=== PATIENT | male | born 1960 | race Caucasian/White ===

== ENCOUNTER 2020-07-17 15:46 | Inpatient (IN) | payer SELFPAY ==
[2020-07-17] MEDS ORDERED: ASPIRIN 325 MG TAB PO ONE (17:20)
--- NOTE | 2020-07-17 18:04 | XRay Report ---
CHEST 1 VIEW INDICATION: Chest Pain COMPARISON: None FINDINGS: SUPPORT DEVICES: None. HEART / MEDIASTINUM: No significant abnormality. LUNGS / PLEURA: Faint increased density throughout both lungs. No evidence of a pleural effusion. No pneumothorax. ADDITIONAL FINDINGS: IMPRESSION: 1. Diffuse pulmonary process, pneumonia is a concern Signer Name: Duglas Carter MD Signed: 07/17/2020 6:00 PM Workstation Name: [id number]
[2020-07-17 18:05] LABS: Basophils % (Auto) 0.2 % (0.0-1.8); Hematocrit 40.6 % (35.5-45.6); Hemoglobin 14.1 gm/dl (11.8-15.2); Lymphocytes # (Auto) 0.7 K/mm3 (1.2-5.4); Lymphocytes % (Auto) 10.5 % (13.4-35.0); Mean Corpuscular HGB Conc 35 % (32-34); Mean Corpuscular Volume 92 fl (84-94); Monocytes # (Auto) 0.3 K/mm3 (0.0-0.8); Platelet Count 148 K/mm3 (140-440); Red Cell Distribution Width 13.3 % (13.2-15.2)
[2020-07-17 18:22] LABS: Calcium 8.5 mg/dL (8.4-10.2); Hemolysis Index 5
[2020-07-17 18:43] LABS: BUN/Creatinine Ratio 1; Blood Urea Nitrogen 1 mg/dL (9-20)
--- NOTE | 2020-07-17 18:45 | Event Note ---
ED Screening Note Date of service: 07/17/20 Time: 18:43 ED Screening Note: 60-year-old -Maltese male presents to the emergency room for shortness of breath and chest discomfort x10 days. Patient denies any past medical history. Does complain of a cough. Denies any fever chills no nausea no vomiting no diarrhea. Last Covid negative test was in April prior to going to [place]. This initial assessment/diagnostic orders/clinical plan/treatment(s) is/are subject to change based on patients health status, clinical progression and re- assessment by fellow clinical providers in the ED. Further treatment and workup at subsequent clinical providers discretion. Patient/guardian urged not to elope from the ED as their condition may be serious if not clinically assessed and managed. Initial orders include:
[2020-07-17] MEDS ORDERED: cefTRIAXone/NS 1 GM/50 ML 1 GM/50 ML BAG IV ONE (21:58)
[2020-07-17] MEDS ORDERED: ALBUTEROL 2.5 MG/3 ML NEBU IH ONE (21:58)
[2020-07-17] MEDS ORDERED: ONDANSETRON 4 MG/2 ML INJ IV PRN (22:21)
[2020-07-17] MEDS ORDERED: MAGNESIUM HYDROXIDE (MOM) ORAL LIQD UDC PO PRN (22:21)
[2020-07-17] MEDS ORDERED: dexAMETHasone 4 MG/ML VIAL IV ONE (22:26)
--- NOTE | 2020-07-17 22:32 | History and Physical Report ---
History of Present Illness Date of examination: 07/17/20 Date of admission: 07/17/2020 Chief complaint: Shortness of breath Chest Discomfort History of present illness: 60-year-old -Citizen Of [place] male with no significant past medical history presenting to the emergency room today complaining of shortness of breath and chest discomfort. Symptoms have been ongoing for the past 2 weeks. He has had some cough which is minimally productive of some whitish sputum. Patient states that he was seen by his primary care physician a few days ago and was started on some antibiotics doxycycline and some oral steroids without any significant improvement. He has had some low-grade fever and chills, no nausea vomiting, no headache or dizziness, he has had some mild chest discomfort with cough, no hematuria or dysuria. Patient denies any sick contacts and no contact with anyone with COVID-19. He however states he went on a trip to [facility] in April 2020. Work-up in the emergency room today, chest x-ray reveals:. Diffuse pulmonary process, pneumonia is a concern . Past History Past Medical History: No medical history Medications and Allergies Allergies Allergy/AdvReac Type Severity Reaction Status Date / Time No Known Allergies Allergy Verified 07/17/20 17:02 Active Meds: Active Medications Acetaminophen (Acetaminophen 325 Mg Tab) 650 mg PO Q4H PRN PRN Reason: Pain MILD(1-3)/Fever >100.5/AWAD Dexamethasone (Dexamethasone 4 Mg/Ml Vial) 8 mg IV ONCE ONE Stop: 07/17/20 22:27 Dexamethasone (Dexamethasone 4 Mg/Ml Vial) 6 mg IV Q24HR SHERON Enoxaparin Sodium (Enoxaparin 40 Mg/0.4 Ml Inj) 40 mg SUB-Q QDAY@2200 SHERON; Protocol Ceftriaxone Sodium (Rocephin/Ns 2 Gm/100 Ml) 2 gm in 100 mls @ 200 mls/hr IV Q24H SHERON; Protocol Azithromycin 500 mg/ Sodium (Chloride) 250 mls @ 250 mls/hr IV Q24H SHERON; Protocol Magnesium Hydroxide (Magnesium Hydroxide (Mom) Oral Liqd Udc) 30 ml PO Q4H PRN PRN Reason: Constipation Morphine Sulfate (Morphine 2 Mg/1 Ml Inj) 2 mg IV Q4H PRN PRN Reason: Pain, Moderate (4-6) Ondansetron HCl (Ondansetron 4 Mg/2 Ml Inj) 4 mg IV Q8H PRN PRN Reason: Nausea And Vomiting Sodium Chloride (Sodium Chloride 0.9% 10 Ml Flush Syringe) 10 ml IV PRN PRN PRN Reason: LINE FLUSH Last Admin: 07/17/20 22:13 Dose: 10 ml Documented by: Sodium Chloride (Sodium Chloride 0.9% 10 Ml Flush Syringe) 10 ml IV BID SHERON Sodium Chloride (Sodium Chloride 0.9% 10 Ml Flush Syringe) 10 ml IV PRN PRN PRN Reason: LINE FLUSH Review of Systems Constitutional: fever, chills, malaise Ears, nose, mouth and throat: no nasal congestion, no sore throat Cardiovascular: no chest pain, no palpitations Respiratory: cough, shortness of breath Gastrointestinal: no abdominal pain, no nausea, no vomiting, no diarrhea Genitourinary Male: no dysuria, no hematuria, no flank pain, no nocturia Musculoskeletal: no neck pain, no low back pain Integumentary: no rash, no pruritis Neurological: no headaches, no confusion Psychiatric: no anxiety, no depression Exam - Constitutional Vitals: Temp Pulse Resp BP Pulse Ox 98.6 F 78 20 146/72 95 07/17/20 17:03 07/17/20 17:03 07/17/20 17:03 07/17/20 17:03 07/17/20 17:03 General appearance: Present: no acute distress, well-nourished - EENT Eyes: Present: PERRL, EOM intact. Absent: scleral icterus ENT: hearing intact, clear oral mucosa, dentition normal - Neck Neck: Present: supple, normal ROM - Respiratory Respiratory effort: normal Respiratory: bilateral: diminished - Cardiovascular Rhythm: regular Heart Sounds: Present: S1 & S2. Absent: gallop, systolic murmur, diastolic murmur, rub - Extremities Extremities: no ischemia, pulses intact, pulses symmetrical, No edema, normal temperature, normal color, Full ROM Peripheral Pulses: within normal limits - Abdominal General gastrointestinal: Present: soft, non-tender, non-distended, normal bowel sounds. Absent: mass - Integumentary Integumentary: Present: clear, warm, dry. Absent: rash - Musculoskeletal Musculoskeletal: strength equal bilaterally - Psychiatric Psychiatric: appropriate mood/affect, intact judgment & insight, memory intact, cooperative - Neurologic Neurologic: CNII-XII intact, no focal deficits, moves all extremities HEART Score - HEART Score Troponin: Troponin T < 0.010 ng/mL (0.00-0.029) 07/17/20 17:30 Results - Labs CBC & Chem 7: 07/18/20 04:31 07/18/20 04:31 Labs: Abnormal lab results 07/17/20 07/17/20 Range/Units 17:30 17:30 MCHC 35 H (32-34) % Lymph % (Auto) 10.5 L (13.4-35.0) % Lymph # (Auto) 0.7 L (1.2-5.4) K/mm3 Seg Neutrophils % 85.3 H (40.0-70.0) % BUN 1 L (9-20) mg/dL Glucose 154 H (75-100) mg/dL Assessment and Plan - Patient Problems (1) Pneumonia Current Visit: Yes Status: Acute Plan to address problem: Patient placed on empiric IV antibiotics. We will await culture results. (2) Hypoxia Current Visit: Yes Status: Acute Plan to address problem: Possibly due to the underlying pneumonia. We will keep patient on oxygen and keep O2 saturation greater or equal to 94%. (3) Suspected 2019 novel coronavirus infection Current Visit: Yes Status: Acute Plan to address problem: Patient placed on isolation precautions. We will await COVID-19 testing. Consult placed to infectious disease for evaluation. (4) DVT prophylaxis Current Visit: Yes Status: Acute Plan to address problem: Patient placed on subcutaneous Lovenox. (5) Full code status Current Visit: Yes Status: Acute Plan to address problem: Patient is a full code.
--- NOTE | 2020-07-17 22:50 | Emergency Department Report ---
ED General Adult HPI - General Chief complaint: Chest Pain Stated complaint: INEZ Time Seen by Provider: 07/17/20 21:13 Source: patient Mode of arrival: Ambulatory Limitations: No Limitations - History of Present Illness Initial comments: 60-year-old -Belgian male with no significant past medical history presents to the emergency department complaining of progressively worsening dyspnea and chest discomfort associated with cough over the past near 2 weeks. States that he initially got symptoms and saw his primary care provider home for him with symptomatic medications which did not improve her symptoms he visited him about 4 days ago and was started on on doxycycline which she reports compliance with still symptoms has continued to worsen since the onset. No mumps no hematemesis no hematochezia and his most recent foreign travel was to [place] back in April.. Quality: aching Consistency: constant Improves with: none Worsens with: movement Associated Symptoms: cough, malaise, shortness of breath. denies: diaphoresis, fever/chills - Related Data Allergies Allergy/AdvReac Type Severity Reaction Status Date / Time No Known Allergies Allergy Verified 07/17/20 17:02 ED Review of Systems ROS: Stated complaint: INEZ Other details as noted in HPI Comment: All other systems reviewed and negative ED Physical Exam - General Limitations: No Limitations General appearance: alert, in no apparent distress - Head Head exam: Present: atraumatic, normocephalic - Eye Eye exam: Present: normal appearance, PERRL, EOMI. Absent: scleral icterus, conjunctival injection Pupils: Present: normal accommodation - ENT ENT exam: Present: normal exam, normal orophraynx, mucous membranes moist - Neck Neck exam: Present: normal inspection, full ROM - Respiratory Respiratory exam: Present: respiratory distress, rhonchi, decreased breath sounds - Cardiovascular Cardiovascular Exam: Present: regular rate, normal rhythm. Absent: systolic murmur, diastolic murmur, rubs, gallop - GI/Abdominal GI/Abdominal exam: Present: soft, normal bowel sounds - Rectal Rectal exam: Present: deferred - Extremities Exam Extremities exam: Present: normal inspection - Back Exam Back exam: Present: normal inspection - Neurological Exam Neurological exam: Present: alert, oriented X3 - Psychiatric Psychiatric exam: Present: normal affect, normal mood - Skin Skin exam: Present: warm, dry, intact, normal color. Absent: rash ED Course Vital Signs 07/17/20 17:03 Temperature 98.6 F Pulse Rate 78 Respiratory 20 Rate Blood Pressure 146/72 O2 Sat by Pulse 95 Oximetry ED Medical Decision Making - Lab Data Result diagrams: 07/17/20 17:30 07/17/20 17:30 Lab Results 07/17/20 07/17/20 Range/Units 17:30 17:30 WBC 6.4 (4.5-11.0) K/mm3 RBC 4.40 (3.65-5.03) M/mm3 Hgb 14.1 (11.8-15.2) gm/dl Hct 40.6 (35.5-45.6) % MCV 92 (84-94) fl MCH 32 (28-32) pg MCHC 35 H (32-34) % RDW 13.3 (13.2-15.2) % Plt Count 148 (140-440) K/mm3 Lymph % (Auto) 10.5 L (13.4-35.0) % [place] % (Auto) 4.0 (0.0-7.3) % Eos % (Auto) 0.0 (0.0-4.3) % Baso % (Auto) 0.2 (0.0-1.8) % Lymph # (Auto) 0.7 L (1.2-5.4) K/mm3 [place] # (Auto) 0.3 (0.0-0.8) K/mm3 Eos # (Auto) 0.0 (0.0-0.4) K/mm3 Baso # (Auto) 0.0 (0.0-0.1) K/mm3 Seg Neutrophils % 85.3 H (40.0-70.0) % Seg Neutrophils # 5.4 (1.8-7.7) K/mm3 Sodium 139 (137-145) mmol/L Potassium 4.2 (3.6-5.0) mmol/L Chloride 101.7 (98-107) mmol/L Carbon Dioxide 23 (22-30) mmol/L Anion Gap 19 mmol/L BUN 1 L (9-20) mg/dL Creatinine 0.9 (0.8-1.3) mg/dL Estimated GFR > 60 ml/min BUN/Creatinine Ratio 1 % Glucose 154 H (75-100) mg/dL Calcium 8.5 (8.4-10.2) mg/dL Troponin T < 0.010 (0.00-0.029) ng/mL - EKG Data EKG shows normal: sinus rhythm Rate: normal - EKG Data Interpretation: normal EKG - Radiology Data Radiology results: report reviewed [facility] [address] [place] [address] XRay Report Signed Patient: JESSICA ORTEGA MR#: [id number] 2 : 1960 Acct:[id number] Age/Sex: 60 / M ADM Date: 07/17/20 Loc: ED Attending Dr: Ordering Physician: JEFFREY CRUZ MD Date of Service: 07/17/20 Procedure(s): XR chest 1V ap Accession Number(s): [id number] cc: ED MD ANTHONY Fluoro Time In Minutes: CHEST 1 VIEW INDICATION: Chest Pain COMPARISON: None FINDINGS: SUPPORT DEVICES: None. HEART / MEDIASTINUM: No significant abnormality. LUNGS / PLEURA: Faint increased density throughout both lungs. No evidence of a pleural effusion. No pneumothorax. ADDITIONAL FINDINGS: IMPRESSION: 1. Diffuse pulmonary process, pneumonia is a concern Signer Name: Duglas Carter MD Signed: 07/17/2020 6:00 PM Workstation Name: [id number] Transcribed By: WG Dictated By: Duglas Carter MD Electronically Authenticated By: Duglas Carter MD Signed Date/Time: 07/17/20 1800 DD/ 58 TD/TT: - Medical Decision Making 60-year-old -Belgian male presents emergency department with worsening shortness of breath and chest discomfort following being treated for what appears to have initially been thought to be bronchitis but now has progressed to bilateral pneumonia. Vital signs are stable white count is normal however he does exhibit exertional hypoxemia chest pain and dyspnea there is no calf swelling and there is a strong suspicion for COVID-19 bilateral pneumonia complication. Plan is to admit him to the hospital for IV antibiotics and treatment of the hypoxemia. We will rescreen him for coronavirus and treat his pneumonia accordingly. With minimal ambulation his oxygen saturation decreases from 95% down to 80% and less than 25 feet Critical care attestation.: If time is entered above; I have spent that time in minutes in the direct care of this critically ill patient, excluding procedure time. ED Disposition Clinical Impression: Pneumonia, Hypoxia Disposition: DC- OP ADMIT IP TO THIS HOSP Is pt being admited?: Yes Does the pt Need Aspirin: No Condition: Stable Instructions: Bacterial Pneumonia (ED) Referrals: PRIMARY CARE, [Primary Care Provider] - 3-5 Days
[2020-07-17] MEDS ORDERED: AZITHROMYCIN 500 MG in SODIUM CHLORIDE 0.9% 250ML 250 ML IV SCH (23:00)
[2020-07-17] MEDS: cefTRIAXone/NS 2 GM/100 ML 2 GM/100 ML BAG IV SCH (23:52)
[2020-07-18 02:50] LABS: C-Reactive Protein 17.7 mg/dL (0.00-1.30)
[2020-07-18 05:10] LABS: Hematocrit 40.7 % (35.5-45.6); Hemoglobin 14.2 gm/dl (11.8-15.2); Mean Corpuscular HGB Conc 35 % (32-34); Mean Corpuscular Volume 93 fl (84-94); Platelet Count 149 K/mm3 (140-440); Red Blood Count 4.36 M/mm3 (3.65-5.03); Red Cell Distribution Width 13.1 % (13.2-15.2)
[2020-07-18 05:23] LABS: INR 1.06 (0.87-1.13)
[2020-07-18 05:28] LABS: BUN/Creatinine Ratio 21; Blood Urea Nitrogen 23 mg/dL (9-20); Calcium 8.7 mg/dL (8.4-10.2); Hemolysis Index 2
[2020-07-18 07:14] LABS: Anisocytosis 1+; Total Cells Counted 100
[2020-07-18 07:15] LABS: Platelet Estimate Consistent w Auto
[2020-07-18] MEDS: dexAMETHasone 4 MG/ML VIAL IV SCH (10:54)
--- NOTE | 2020-07-18 11:49 | Progress Note ---
Assessment and Plan Assessment and plan: -- Pneumonia Current Visit: Yes Status: Acute Plan to address problem: Patient placed on empiric IV antibiotics. We will await culture results. --Acute hypoxc respiratory failure; O2 sats between 80-82 percent room air Current Visit: Yes Status: Acute Plan to address problem: Possibly due to the underlying pneumonia. Oxygen titrate O2 sats to more than 90% Treat the underlying cause Home O2 evaluation -- Suspected 2019 novel coronavirus infection Current Visit: Yes Status: Acute Plan to address problem: Patient placed on isolation precautions. We will await COVID-19 testing. Consult placed to infectious disease for evaluation. -- DVT prophylaxis Current Visit: Yes Status: Acute Plan to address problem: Patient placed on subcutaneous Lovenox. -- Full code status Current Visit: Yes Status: Acute Plan to address problem: Patient is a full code. Closely monitor the patient and adjust management as needed Follow brennan PCR test, consults and recommendations Plan of care reviewed with the patient and his nurse in ED History Interval history: Seen and examined the patient in ER awaiting bed assignment Patient's chart and medications reviewed Admitted as PUI awaiting brennan PCR test Patient complains of shortness of breath Vital signs noted Hospitalist Physical - Constitutional Vitals: Temp Pulse Resp BP Pulse Ox 98.6 F 78 20 146/72 95 07/17/20 17:03 07/17/20 17:03 07/17/20 17:03 07/17/20 17:03 07/17/20 17:03 General appearance: Present: mild distress, well-nourished - EENT Eyes: Present: PERRL, EOM intact - Neck Neck: Present: supple, normal ROM - Respiratory Respiratory effort: normal Respiratory: bilateral: diminished, negative: rhonchi, wheezing - Cardiovascular Rhythm: regular Heart Sounds: Present: S1 & S2 - Extremities Extremities: no ischemia, No edema - Abdominal General gastrointestinal: soft, non-tender, non-distended, normal bowel sounds - Integumentary Integumentary: Present: clear, warm - Psychiatric Psychiatric: appropriate mood/affect, cooperative - Neurologic Neurologic: moves all extremities HEART Score - HEART Score Troponin: Troponin T < 0.010 ng/mL (0.00-0.029) 07/17/20 22:48 Results - Labs CBC & Chem 7: 07/18/20 04:31 07/18/20 04:31 Labs: Laboratory Last Values WBC 8.8 K/mm3 (4.5-11.0) 07/18/20 04:31 RBC 4.36 M/mm3 (3.65-5.03) 07/18/20 04:31 Hgb 14.2 gm/dl (11.8-15.2) 07/18/20 04:31 Hct 40.7 % (35.5-45.6) 07/18/20 04:31 MCV 93 fl (84-94) 07/18/20 04:31 MCH 33 pg (28-32) H 07/18/20 04:31 MCHC 35 % (32-34) H 07/18/20 04:31 RDW 13.1 % (13.2-15.2) L 07/18/20 04:31 Plt Count 149 K/mm3 (140-440) 07/18/20 04:31 Lymph % (Auto) 10.5 % (13.4-35.0) L 07/17/20 17:30 [place] % (Auto) 4.0 % (0.0-7.3) 07/17/20 17:30 Eos % (Auto) 0.0 % (0.0-4.3) 07/17/20 17:30 Baso % (Auto) 0.2 % (0.0-1.8) 07/17/20 17:30 Lymph # (Auto) 0.7 K/mm3 (1.2-5.4) L 07/17/20 17:30 [place] # (Auto) 0.3 K/mm3 (0.0-0.8) 07/17/20 17:30 Eos # (Auto) 0.0 K/mm3 (0.0-0.4) 07/17/20 17:30 Baso # (Auto) 0.0 K/mm3 (0.0-0.1) 07/17/20 17:30 Add Manual Diff Complete 07/18/20 04:31 Total Counted 100 07/18/20 04:31 Seg Neutrophils % Line Installer Trolley 07/18/20 04:31 Lymphocytes % (Manual) 5.0 % (13.4-35.0) L 07/18/20 04:31 Monocytes % (Manual) 3.0 % (0.0-7.3) 07/18/20 04:31 Nucleated RBC % Not Reportable 07/18/20 04:31 Seg Neutrophils # 5.4 K/mm3 (1.8-7.7) 07/17/20 17:30 Seg Neutrophils # Man 8.1 K/mm3 (1.8-7.7) H 07/18/20 04:31 Band Neutrophils # 0.0 K/mm3 07/18/20 04:31 Lymphocytes # (Manual) 0.4 K/mm3 (1.2-5.4) L 07/18/20 04:31 Abs React Lymphs (Man) 0.0 K/mm3 07/18/20 04:31 Monocytes # (Manual) 0.3 K/mm3 (0.0-0.8) 07/18/20 04:31 Eosinophils # (Manual) 0.0 K/mm3 (0.0-0.4) 07/18/20 04:31 Basophils # (Manual) 0.0 K/mm3 (0.0-0.1) 07/18/20 04:31 Metamyelocytes # 0.0 K/mm3 07/18/20 04:31 Myelocytes # 0.0 K/mm3 07/18/20 04:31 Promyelocytes # 0.0 K/mm3 07/18/20 04:31 Blast Cells # 0.0 K/mm3 07/18/20 04:31 WBC Morphology Not Reportable 07/18/20 04:31 Hypersegmented Neuts Not Reportable 07/18/20 04:31 Hyposegmented Neuts Not Reportable 07/18/20 04:31 Hypogranular Neuts Not Reportable 07/18/20 04:31 Smudge Cells Not Reportable 07/18/20 04:31 Toxic Granulation Not Reportable 07/18/20 04:31 Toxic Vacuolation Not Reportable 07/18/20 04:31 Dohle Bodies Not Reportable 07/18/20 04:31 Pelger-Huet Anomaly Not Reportable 07/18/20 04:31 Cheri Rods Not Reportable 07/18/20 04:31 Platelet Estimate Consistent w auto 07/18/20 04:31 Clumped Platelets Not Reportable 07/18/20 04:31 Plt Clumps, EDTA Not Reportable 07/18/20 04:31 Large Platelets Not Reportable 07/18/20 04:31 Giant Platelets Not Reportable 07/18/20 04:31 Platelet Satelliting Not Reportable 07/18/20 04:31 Plt Morphology Comment Not Reportable 07/18/20 04:31 RBC Morphology Not Reportable 07/18/20 04:31 Dimorphic RBCs Not Reportable 07/18/20 04:31 Polychromasia Not Reportable 07/18/20 04:31 Hypochromasia Not Reportable 07/18/20 04:31 Poikilocytosis Not Reportable 07/18/20 04:31 Anisocytosis 1+ 07/18/20 04:31 Microcytosis Not Reportable 07/18/20 04:31 Macrocytosis Not Reportable 07/18/20 04:31 Spherocytes Not Reportable 07/18/20 04:31 Pappenheimer Bodies Not Reportable 07/18/20 04:31 Sickle Cells Not Reportable 07/18/20 04:31 Target Cells Not Reportable 07/18/20 04:31 Tear Drop Cells Not Reportable 07/18/20 04:31 Ovalocytes Not Reportable 07/18/20 04:31 Helmet Cells Not Reportable 07/18/20 04:31 [place] Bodies Not Reportable 07/18/20 04:31 Dwight Rings Not Reportable 07/18/20 04:31 [place] Cells Not Reportable 07/18/20 04:31 Bite Cells Not Reportable 07/18/20 04:31 Crenated Cell Not Reportable 07/18/20 04:31 Elliptocytes Not Reportable 07/18/20 04:31 Acanthocytes (Spur) Not Reportable 07/18/20 04:31 Rouleaux Not Reportable 07/18/20 04:31 Hemoglobin C Crystals Not Reportable 07/18/20 04:31 Schistocytes Not Reportable 07/18/20 04:31 Malaria parasites Not Reportable 07/18/20 04:31 Wilfredo Bodies Not Reportable 07/18/20 04:31 Hem Pathologist Commnt No 07/18/20 04:31 PT 13.7 Sec. (12.2-14.9) 07/18/20 04:31 INR 1.06 (0.87-1.13) 07/18/20 04:31 D-Dimer 314.21 ng/mlDDU (0-234) H 07/17/20 22:48 Sodium 141 mmol/L (137-145) 07/18/20 04:31 Potassium 4.9 mmol/L (3.6-5.0) 07/18/20 04:31 Chloride 101.3 mmol/L (98-107) 07/18/20 04:31 Carbon Dioxide 31 mmol/L (22-30) H D 07/18/20 04:31 Anion Gap 14 mmol/L 07/18/20 04:31 BUN 23 mg/dL (9-20) H 07/18/20 04:31 Creatinine 1.1 mg/dL (0.8-1.3) 07/18/20 04:31 Estimated GFR > 60 ml/min 07/18/20 04:31 BUN/Creatinine Ratio 21 % 07/18/20 04:31 Glucose 143 mg/dL (75-100) H 07/18/20 04:31 Calcium 8.7 mg/dL (8.4-10.2) 07/18/20 04:31 Ferritin 889.3 ng/mL (30.0-300.0) H 07/17/20 22:48 Lactate Dehydrogenase 832 units/L (91-180) H 07/17/20 22:48 Troponin T < 0.010 ng/mL (0.00-0.029) 07/17/20 22:48 C-Reactive Protein 17.70 mg/dL (0.00-1.30) H 07/17/20 22:48 Procalcitonin 0.94 ng/mL (<0.15) 07/17/20 22:48 Cabrera/IV: IV Catheter Type [Right Distal INT / Saline Lock Port Hand] Active Medications - Current Medications Current Medications: Generic Name Dose Route Start Last Admin Trade Name Freq PRN Reason Stop Dose Admin Acetaminophen 650 mg 07/17/20 22:21 Acetaminophen 325 Mg Tab PO Q4H PRN Pain MILD(1-3)/Fever >100.5/AWAD Dexamethasone 6 mg 07/18/20 10:00 07/18/20 10:54 Dexamethasone 4 Mg/Ml Vial IV Not Given Q24HR [facility] Enoxaparin Sodium 40 mg 07/18/20 22:00 Enoxaparin 40 Mg/0.4 Ml Inj SUB-Q QDAY@2200 [facility] Protocol Ceftriaxone Sodium 2 gm in 100 mls @ 200 mls/hr 07/17/20 23:00 07/17/20 23:52 Rocephin/Ns 2 Gm/100 Ml IV Not Given Q24H [facility] Protocol Azithromycin 500 mg/ Sodium 250 mls @ 250 mls/hr 07/17/20 23:00 07/18/20 00:01 Chloride IV 250 mls/hr Q24H SHERON Administration Protocol Magnesium Hydroxide 30 ml 07/17/20 22:21 Magnesium Hydroxide (Mom) Oral Liqd Udc PO Q4H PRN Constipation Morphine Sulfate 2 mg 07/17/20 22:21 Morphine 2 Mg/1 Ml Inj IV Q4H PRN Pain, Moderate (4-6) Ondansetron HCl 4 mg 07/17/20 22:21 Ondansetron 4 Mg/2 Ml Inj IV Q8H PRN Nausea And Vomiting Sodium Chloride 10 ml 07/17/20 22:01 07/17/20 22:13 Sodium Chloride 0.9% 10 Ml Flush Syringe IV 10 ml PRN PRN Administration LINE FLUSH Sodium Chloride 10 ml 07/18/20 10:00 Sodium Chloride 0.9% 10 Ml Flush Syringe IV BID SHERON Sodium Chloride 10 ml 07/17/20 22:21 Sodium Chloride 0.9% 10 Ml Flush Syringe IV PRN PRN LINE FLUSH
--- NOTE | 2020-07-18 13:42 | Consultation ---
History of Present Illness Consult date: 07/18/20 Requesting physician: GILSON LITTLEJOHN Reason for consult: dyspnea, chest pain History of present illness: 60 y/o male presents to the ED with chest pain. Patient recently when to [facility] (April of this year). Presents to the ED with shortness of breath and chest discomfort for the past 2 weeks. Saw his PCP who put him on abx and steroids but no improvement. CXR here is abnormal for bilateral alveolar filling proc ess. Past History Past Medical History: No medical history Medications and Allergies Allergies Allergy/AdvReac Type Severity Reaction Status Date / Time No Known Allergies Allergy Verified 07/17/20 17:02 Active Meds: Active Medications Acetaminophen (Acetaminophen 325 Mg Tab) 650 mg PO Q4H PRN PRN Reason: Pain MILD(1-3)/Fever >100.5/AWAD Dexamethasone (Dexamethasone 4 Mg/Ml Vial) 6 mg IV Q24HR SHERON Last Admin: 07/18/20 10:54 Dose: Not Given Documented by: Enoxaparin Sodium (Enoxaparin 40 Mg/0.4 Ml Inj) 40 mg SUB-Q QDAY@2200 SHERON; Protocol Ceftriaxone Sodium (Rocephin/Ns 2 Gm/100 Ml) 2 gm in 100 mls @ 200 mls/hr IV Q24H SHERON; Protocol Last Admin: 07/17/20 23:52 Dose: Not Given Documented by: Azithromycin 500 mg/ Sodium (Chloride) 250 mls @ 250 mls/hr IV Q24H SHERON; Protocol Last Admin: 07/18/20 00:01 Dose: 250 mls/hr Documented by: Magnesium Hydroxide (Magnesium Hydroxide (Mom) Oral Liqd Udc) 30 ml PO Q4H PRN PRN Reason: Constipation Morphine Sulfate (Morphine 2 Mg/1 Ml Inj) 2 mg IV Q4H PRN PRN Reason: Pain, Moderate (4-6) Ondansetron HCl (Ondansetron 4 Mg/2 Ml Inj) 4 mg IV Q8H PRN PRN Reason: Nausea And Vomiting Sodium Chloride (Sodium Chloride 0.9% 10 Ml Flush Syringe) 10 ml IV PRN PRN PRN Reason: LINE FLUSH Last Admin: 07/17/20 22:13 Dose: 10 ml Documented by: Sodium Chloride (Sodium Chloride 0.9% 10 Ml Flush Syringe) 10 ml IV BID SHERON Last Admin: 07/18/20 11:55 Dose: 10 ml Documented by: Sodium Chloride (Sodium Chloride 0.9% 10 Ml Flush Syringe) 10 ml IV PRN PRN PRN Reason: LINE FLUSH Physical Examination Vital signs: Vital Signs Temp Pulse Resp BP Pulse Ox 98.6 F 78 20 146/72 95 07/17/20 17:03 07/17/20 17:03 07/17/20 17:03 07/17/20 17:03 07/17/20 17:03 Patient not examined in person as he is a PUI for COVID 19 and in need to preserve PPE during the COVID 19 pandemic Results - Laboratory Findings CBC and BMP: 07/18/20 04:31 07/18/20 04:31 PT/INR, D-dimer PT 13.7 Sec. (12.2-14.9) 07/18/20 04:31 INR 1.06 (0.87-1.13) 07/18/20 04:31 D-Dimer 314.21 ng/mlDDU (0-234) H 07/17/20 22:48 Abnormal lab findings: Abnormal Labs 07/17/20 07/17/20 07/17/20 17:30 17:30 22:48 MCH MCHC 35 H RDW Lymph % (Auto) 10.5 L Lymph # (Auto) 0.7 L Seg Neutrophils % 85.3 H Lymphocytes % (Manual) Seg Neutrophils # Man Lymphocytes # (Manual) D-Dimer 314.21 H Carbon Dioxide BUN 1 L Glucose 154 H Ferritin Lactate Dehydrogenase C-Reactive Protein 07/17/20 07/17/20 07/18/20 22:48 22:48 04:31 MCH 33 H MCHC 35 H RDW 13.1 L Lymph % (Auto) Lymph # (Auto) Seg Neutrophils % Lymphocytes % (Manual) 5.0 L Seg Neutrophils # Man 8.1 H Lymphocytes # (Manual) 0.4 L D-Dimer Carbon Dioxide BUN Glucose 124 H Ferritin 889.3 H Lactate Dehydrogenase 832 H C-Reactive Protein 17.70 H 07/18/20 04:31 MCH MCHC RDW Lymph % (Auto) Lymph # (Auto) Seg Neutrophils % Lymphocytes % (Manual) Seg Neutrophils # Man Lymphocytes # (Manual) D-Dimer Carbon Dioxide 31 H D BUN 23 H Glucose 143 H Ferritin Lactate Dehydrogenase C-Reactive Protein - Diagnostic Findings Chest x-ray: image reviewed Assessment and Plan 60 y/o male with chest discomfort, shortness of breath and abnormal CXR 1. Ok with isolation as PUI 2. Ok with steroids 3. Please ask patient prone as tolerate during the day and sleep prone at night 4. Follow up COVID testing, should be back this afternoon 5. Ordered BNP 6. If COVID negative and not producing sputum, may need bronchoscopy pending his oxygen requirements.
--- NOTE | 2020-07-18 15:44 | Consultation ---
History of Present Illness - Reason for Consult Consult date: 07/18/20 COVID Requesting physician: GILSON LITTLEJOHN - History of Present Illness The patient is a 60-year-old male with no significant past medical history admitted to the hospital with a 2-week history of cough and shortness of breath. He tested positive for COVID-19. No fever. Review of Systems: reviewed in the chart, unable to obtain, minimize risk of transmission Past History Past Medical History: No medical history Medications and Allergies Allergies Allergy/AdvReac Type Severity Reaction Status Date / Time No Known Allergies Allergy Verified 07/17/20 17:02 Active Meds: Active Medications Acetaminophen (Acetaminophen 325 Mg Tab) 650 mg PO Q4H PRN PRN Reason: Pain MILD(1-3)/Fever >100.5/AWAD Dexamethasone (Dexamethasone 4 Mg/Ml Vial) 6 mg IV Q24HR SHERON Last Admin: 07/18/20 10:54 Dose: Not Given Documented by: Enoxaparin Sodium (Enoxaparin 40 Mg/0.4 Ml Inj) 40 mg SUB-Q QDAY@2200 SHERON; Protocol Ceftriaxone Sodium (Rocephin/Ns 2 Gm/100 Ml) 2 gm in 100 mls @ 200 mls/hr IV Q24H SHERON; Protocol Last Admin: 07/17/20 23:52 Dose: Not Given Documented by: Azithromycin 500 mg/ Sodium (Chloride) 250 mls @ 250 mls/hr IV Q24H SHERON; Protocol Last Admin: 07/18/20 00:01 Dose: 250 mls/hr Documented by: Magnesium Hydroxide (Magnesium Hydroxide (Mom) Oral Liqd Udc) 30 ml PO Q4H PRN PRN Reason: Constipation Morphine Sulfate (Morphine 2 Mg/1 Ml Inj) 2 mg IV Q4H PRN PRN Reason: Pain, Moderate (4-6) Ondansetron HCl (Ondansetron 4 Mg/2 Ml Inj) 4 mg IV Q8H PRN PRN Reason: Nausea And Vomiting Sodium Chloride (Sodium Chloride 0.9% 10 Ml Flush Syringe) 10 ml IV PRN PRN PRN Reason: LINE FLUSH Last Admin: 07/17/20 22:13 Dose: 10 ml Documented by: Sodium Chloride (Sodium Chloride 0.9% 10 Ml Flush Syringe) 10 ml IV BID SHERON Last Admin: 07/18/20 11:55 Dose: 10 ml Documented by: Sodium Chloride (Sodium Chloride 0.9% 10 Ml Flush Syringe) 10 ml IV PRN PRN PRN Reason: LINE FLUSH Physical Examination - Physical Exam Narrative exam: Physical Exam (reviewed in chart to minimize risk of transmission) Constitutional: deferred Head, Ears, Nose: deferred Eyes: deferred Neck: deferred Oral: deferred Cardiovascular: deferred Respiratory: deferred GI: deferred Musculoskeletal: deferred Skin: deferred Hem/Lymphatic: deferred Psych: deferred Neurological: deferred - Constitutional Vitals: Vital Signs Temp Pulse Resp BP Pulse Ox 98.6 F 78 20 146/72 95 07/17/20 17:03 07/17/20 17:03 07/17/20 17:03 07/17/20 17:03 07/17/20 17:03 Temperature -Last 24 Hours Temperature 98.6 F Results - Labs CBC & Chem 7: 07/18/20 04:31 07/18/20 04:31 Labs: Abnormal lab results 07/17/20 07/17/20 07/17/20 Range/Units 17:30 17:30 22:48 MCH (28-32) pg MCHC 35 H (32-34) % RDW (13.2-15.2) % Lymph % (Auto) 10.5 L (13.4-35.0) % Lymph # (Auto) 0.7 L (1.2-5.4) K/mm3 Seg Neutrophils % 85.3 H (40.0-70.0) % Lymphocytes % (Manual) (13.4-35.0) % Seg Neutrophils # Man (1.8-7.7) K/mm3 Lymphocytes # (Manual) (1.2-5.4) K/mm3 D-Dimer 314.21 H (0-234) ng/mlDDU Carbon Dioxide (22-30) mmol/L BUN 1 L (9-20) mg/dL Glucose 154 H (75-100) mg/dL Ferritin (30.0-300.0) ng/mL Lactate Dehydrogenase (91-180) units/L C-Reactive Protein (0.00-1.30) mg/dL Coronavirus (PCR) (Negative) 07/17/20 07/17/20 07/18/20 Range/Units 22:48 22:48 04:31 MCH 33 H (28-32) pg MCHC 35 H (32-34) % RDW 13.1 L (13.2-15.2) % Lymph % (Auto) (13.4-35.0) % Lymph # (Auto) (1.2-5.4) K/mm3 Seg Neutrophils % (40.0-70.0) % Lymphocytes % (Manual) 5.0 L (13.4-35.0) % Seg Neutrophils # Man 8.1 H (1.8-7.7) K/mm3 Lymphocytes # (Manual) 0.4 L (1.2-5.4) K/mm3 D-Dimer (0-234) ng/mlDDU Carbon Dioxide (22-30) mmol/L BUN (9-20) mg/dL Glucose 124 H (75-100) mg/dL Ferritin 889.3 H (30.0-300.0) ng/mL Lactate Dehydrogenase 832 H (91-180) units/L C-Reactive Protein 17.70 H (0.00-1.30) mg/dL Coronavirus (PCR) (Negative) 07/18/20 07/18/20 Range/Units 04:31 08:50 MCH (28-32) pg MCHC (32-34) % RDW (13.2-15.2) % Lymph % (Auto) (13.4-35.0) % Lymph # (Auto) (1.2-5.4) K/mm3 Seg Neutrophils % (40.0-70.0) % Lymphocytes % (Manual) (13.4-35.0) % Seg Neutrophils # Man (1.8-7.7) K/mm3 Lymphocytes # (Manual) (1.2-5.4) K/mm3 D-Dimer (0-234) ng/mlDDU Carbon Dioxide 31 H D (22-30) mmol/L BUN 23 H (9-20) mg/dL Glucose 143 H (75-100) mg/dL Ferritin (30.0-300.0) ng/mL Lactate Dehydrogenase (91-180) units/L C-Reactive Protein (0.00-1.30) mg/dL Coronavirus (PCR) Positive A (Negative) - Imaging and Cardiology Chest x-ray: report reviewed, image reviewed Assessment and Plan Cultures: SARS CoV2 PCR: Positive A/P: 60/M with: #Bilateral pneumonia: Secondary to COVID-19 Recs: -IV/PO Dexamethasone 6 mg daily x 10 days -Borderline hypoxia, symptoms present for more than 2 weeks, doubt much role for remdesivir at this stage -Procalcitonin mildly elevated, continue empiric antibiotics -prophylactic anticoagulation based on d-dimer per hospital protocol -trend ferritin, LDH, d-dimer, CRP every 2-3 days for risk stratification and to assess disease progression Deepa Braswell MD, FACP [facility] ([facility] O: [phone] F: [phone]
[2020-07-18] MEDS: ALBUTEROL 2.5 MG/3 ML NEBU IH PRN ×2 (16:30→19:45)
[2020-07-18] MEDS: ENOXAPARIN 40 MG/0.4 ML INJ SUB-Q SCH (22:14)
[2020-07-18] MEDS: AZITHROMYCIN 250 MG TAB PO SCH (23:37)
[2020-07-18] MEDS: ACETAMINOPHEN 325 MG TAB PO PRN (23:52)
[2020-07-18] MEDS: cefTRIAXone/NS 2 GM/100 ML 2 GM/100 ML BAG IV SCH (23:53)
[2020-07-19] MEDS: dexAMETHasone 4 MG/ML VIAL IV SCH (10:04)
[2020-07-19] MEDS: AZITHROMYCIN 250 MG TAB PO SCH (10:04)
--- NOTE | 2020-07-19 11:24 | Progress Note ---
Assessment and Plan 60 y/o male with chest discomfort, shortness of breath and abnormal CXR 1. Continue steroids for 10 days. 2. With increased O2 requirement, may need to consider remdesivir. At least need to check for antibodies to see if candidate for convalescent plasma 3. Please ask patient prone as tolerated during the day and sleep prone at [facility] t 4. Hold on lasix therapy right now as I/O are not close to accurate 5. Guarded prognosis Subjective Date of service: 07/19/20 Interval history: Positive for Mackenzie Virus. Now on Venturi mask Objective Vital Signs - 12hr 07/18/20 07/18/20 07/19/20 23:47 23:52 00:01 Pulse Rate 79 Respiratory 19 19 Rate Blood Pressure 141/67 Blood Pressure 141/67 [Left] O2 Sat by Pulse 94 95 Oximetry 07/19/20 07/19/20 07/19/20 01:01 02:01 03:01 Pulse Rate Respiratory Rate Blood Pressure 141/67 141/67 141/67 Blood Pressure [Left] O2 Sat by Pulse 93 90 93 Oximetry 07/19/20 07/19/20 07/19/20 04:01 05:01 06:01 Pulse Rate Respiratory Rate Blood Pressure 141/67 141/67 141/67 Blood Pressure [Left] O2 Sat by Pulse 86 87 98 Oximetry 07/19/20 07/19/20 07/19/20 07:01 08:01 09:01 Pulse Rate Respiratory Rate Blood Pressure 141/67 141/67 141/67 Blood Pressure [Left] O2 Sat by Pulse 97 93 93 Oximetry 07/19/20 10:01 Pulse Rate Respiratory Rate Blood Pressure 141/67 Blood Pressure [Left] O2 Sat by Pulse 90 Oximetry CBC and BMP: 07/18/20 04:31 07/18/20 04:31 ABG, PT/INR, D-dimer: PT/INR, D-dimer PT 13.7 Sec. (12.2-14.9) 07/18/20 04:31 INR 1.06 (0.87-1.13) 07/18/20 04:31 D-Dimer 275.27 ng/mlDDU (0-234) H 07/18/20 18:48 Abnormal lab findings: Abnormal Labs 07/17/20 07/17/20 07/17/20 17:30 17:30 22:48 MCH MCHC 35 H RDW Lymph % (Auto) 10.5 L Lymph # (Auto) 0.7 L Seg Neutrophils % 85.3 H Lymphocytes % (Manual) Seg Neutrophils # Man Lymphocytes # (Manual) D-Dimer 314.21 H Carbon Dioxide BUN 1 L Glucose 154 H Ferritin Lactate Dehydrogenase C-Reactive Protein Coronavirus (PCR) 07/17/20 07/17/20 07/18/20 22:48 22:48 04:31 MCH 33 H MCHC 35 H RDW 13.1 L Lymph % (Auto) Lymph # (Auto) Seg Neutrophils % Lymphocytes % (Manual) 5.0 L Seg Neutrophils # Man 8.1 H Lymphocytes # (Manual) 0.4 L D-Dimer Carbon Dioxide BUN Glucose 124 H Ferritin 889.3 H Lactate Dehydrogenase 832 H C-Reactive Protein 17.70 H Coronavirus (PCR) 07/18/20 07/18/20 07/18/20 04:31 08:50 18:48 MCH MCHC RDW Lymph % (Auto) Lymph # (Auto) Seg Neutrophils % Lymphocytes % (Manual) Seg Neutrophils # Man Lymphocytes # (Manual) D-Dimer 275.27 H Carbon Dioxide 31 H D BUN 23 H Glucose 143 H Ferritin Lactate Dehydrogenase C-Reactive Protein Coronavirus (PCR) Positive A 07/18/20 07/18/20 18:48 18:48 MCH MCHC RDW Lymph % (Auto) Lymph # (Auto) Seg Neutrophils % Lymphocytes % (Manual) Seg Neutrophils # Man Lymphocytes # (Manual) D-Dimer Carbon Dioxide BUN Glucose Ferritin 1164.0 H Lactate Dehydrogenase 560 H C-Reactive Protein 18.00 H Coronavirus (PCR)
--- NOTE | 2020-07-19 14:16 | Progress Note ---
Assessment and Plan Cultures: SARS CoV2 PCR: Positive A/P: 60/M with: #Bilateral pneumonia: Secondary to COVID-19 #Acute hypoxic respiratory failure: on ventimask. Recs: -IV/PO Dexamethasone 6 mg daily x 10 days -Given worsening hypoxia, now on Ventimask, started Remdesivir. Symptoms present for more than 2 weeks, so probably won't have much benefit -Procalcitonin elevated, continue empiric antibiotics x 5 days -prophylactic anticoagulation based on d-dimer per hospital protocol -trend ferritin, LDH, d-dimer, CRP every 2-3 days for risk stratification and to assess disease progression Deepa Braswell MD, FACP [facility] O: [phone] F: [phone] Subjective Date of service: 07/19/20 Interval history: No temperature documented in the chart. On oxygen, on Ventimask. Objective - Exam Narrative Exam: Physical Exam (reviewed in chart to minimize risk of transmission) Constitutional: deferred Head, Ears, Nose: deferred Eyes: deferred Neck: deferred Oral: deferred Cardiovascular: deferred Respiratory: deferred GI: deferred Musculoskeletal: deferred Skin: deferred Hem/Lymphatic: deferred Psych: deferred Neurological: deferred - Constitutional Vitals: Vital Signs Temp Pulse Resp BP Pulse Ox 98.6 F 79 19 141/67 85 07/17/20 17:03 07/18/20 23:47 07/18/20 23:52 07/19/20 13:01 07/19/20 13:01 - Labs CBC & Chem 7: 07/18/20 04:31 07/18/20 04:31 Labs: Abnormal lab results 07/18/20 07/18/20 07/18/20 Range/Units 08:50 18:48 18:48 D-Dimer 275.27 H (0-234) ng/mlDDU Ferritin 1164.0 H (30.0-300.0) ng/mL Lactate Dehydrogenase (91-180) units/L C-Reactive Protein (0.00-1.30) mg/dL Coronavirus (PCR) Positive A (Negative) 07/18/20 Range/Units 18:48 D-Dimer (0-234) ng/mlDDU Ferritin (30.0-300.0) ng/mL Lactate Dehydrogenase 560 H (91-180) units/L C-Reactive Protein 18.00 H (0.00-1.30) mg/dL Coronavirus (PCR) (Negative)
--- NOTE | 2020-07-19 14:27 | Progress Note ---
Assessment and Plan Assessment and plan: --COVID-19 positive Continue isolation, ID evaluation and recommendations noted and appreciated We will manage the patient per COVID-19 protocol IV steroids, no need for IV remdesivir per ID oxygen, home oxygen evaluation Prone position as tolerated, inflammatory markers Anticoagulation per protocol, and supportive care Patient is critically ill, poor prognosis -- Pneumonia Current Visit: Yes Status: Acute Plan to address problem: Continue empiric IV antibiotics. Procalcitonin is elevated --Acute hypoxc respiratory failure; O2 sats between 80-82 percent room air Current Visit: Yes Status: Acute Plan to address problem: Possibly due to the underlying pneumonia. Oxygen titrate O2 sats to more than 90% Treat the underlying cause Home O2 evaluation -- DVT prophylaxis Current Visit: Yes Status: Acute Plan to address problem: Patient placed on subcutaneous Lovenox. -- Full code status Current Visit: Yes Status: Acute Plan to address problem: Patient is a full code. Closely monitor the patient and adjust management as needed Follow brennan PCR test, consults and recommendations Plan of care reviewed with the patient and his nurse in ED History Interval history: I have seen and examined the patient at the bedside Patient's chart and medications reviewed Patient remains hypoxemic on nasal cannula and Ventimask oxygen Complains of shortness of breath Vital signs noted Hospitalist Physical - Constitutional Vitals: Temp Pulse Resp BP Pulse Ox 98.6 F 79 19 141/67 85 07/17/20 17:03 07/18/20 23:47 07/18/20 23:52 07/19/20 13:01 07/19/20 13:01 General appearance: Present: no acute distress, well-nourished - EENT Eyes: Present: PERRL, EOM intact - Neck Neck: Present: supple, normal ROM - Respiratory Respiratory effort: normal Respiratory: bilateral: diminished, negative: rales, rhonchi, wheezing - Cardiovascular Rhythm: regular Heart Sounds: Present: S1 & S2 - Extremities Extremities: no ischemia, No edema - Abdominal General gastrointestinal: soft, non-tender, non-distended, normal bowel sounds - Integumentary Integumentary: Present: clear, warm - Psychiatric Psychiatric: appropriate mood/affect, cooperative - Neurologic Neurologic: CNII-XII intact, moves all extremities HEART Score - HEART Score Troponin: Troponin T < 0.010 ng/mL (0.00-0.029) 07/17/20 22:48 Results - Labs CBC & Chem 7: 07/18/20 04:31 07/18/20 04:31 Labs: Laboratory Last Values WBC 8.8 K/mm3 (4.5-11.0) 07/18/20 04:31 RBC 4.36 M/mm3 (3.65-5.03) 07/18/20 04:31 Hgb 14.2 gm/dl (11.8-15.2) 07/18/20 04:31 Hct 40.7 % (35.5-45.6) 07/18/20 04:31 MCV 93 fl (84-94) 07/18/20 04:31 MCH 33 pg (28-32) H 07/18/20 04:31 MCHC 35 % (32-34) H 07/18/20 04:31 RDW 13.1 % (13.2-15.2) L 07/18/20 04:31 Plt Count 149 K/mm3 (140-440) 07/18/20 04:31 Lymph % (Auto) 10.5 % (13.4-35.0) L 07/17/20 17:30 [place] % (Auto) 4.0 % (0.0-7.3) 07/17/20 17:30 Eos % (Auto) 0.0 % (0.0-4.3) 07/17/20 17:30 Baso % (Auto) 0.2 % (0.0-1.8) 07/17/20 17:30 Lymph # (Auto) 0.7 K/mm3 (1.2-5.4) L 07/17/20 17:30 [place] # (Auto) 0.3 K/mm3 (0.0-0.8) 07/17/20 17:30 Eos # (Auto) 0.0 K/mm3 (0.0-0.4) 07/17/20 17:30 Baso # (Auto) 0.0 K/mm3 (0.0-0.1) 07/17/20 17:30 Add Manual Diff Complete 07/18/20 04:31 Total Counted 100 07/18/20 04:31 Seg Neutrophils % [place] 07/18/20 04:31 Lymphocytes % (Manual) 5.0 % (13.4-35.0) L 07/18/20 04:31 Monocytes % (Manual) 3.0 % (0.0-7.3) 07/18/20 04:31 Nucleated RBC % Not Reportable 07/18/20 04:31 Seg Neutrophils # 5.4 K/mm3 (1.8-7.7) 07/17/20 17:30 Seg Neutrophils # Man 8.1 K/mm3 (1.8-7.7) H 07/18/20 04:31 Band Neutrophils # 0.0 K/mm3 07/18/20 04:31 Lymphocytes # (Manual) 0.4 K/mm3 (1.2-5.4) L 07/18/20 04:31 Abs React Lymphs (Man) 0.0 K/mm3 07/18/20 04:31 Monocytes # (Manual) 0.3 K/mm3 (0.0-0.8) 07/18/20 04:31 Eosinophils # (Manual) 0.0 K/mm3 (0.0-0.4) 07/18/20 04:31 Basophils # (Manual) 0.0 K/mm3 (0.0-0.1) 07/18/20 04:31 Metamyelocytes # 0.0 K/mm3 07/18/20 04:31 Myelocytes # 0.0 K/mm3 07/18/20 04:31 Promyelocytes # 0.0 K/mm3 07/18/20 04:31 Blast Cells # 0.0 K/mm3 07/18/20 04:31 WBC Morphology Not Reportable 07/18/20 04:31 Hypersegmented Neuts Not Reportable 07/18/20 04:31 Hyposegmented Neuts Not Reportable 07/18/20 04:31 Hypogranular Neuts Not Reportable 07/18/20 04:31 Smudge Cells Not Reportable 07/18/20 04:31 Toxic Granulation Not Reportable 07/18/20 04:31 Toxic Vacuolation Not Reportable 07/18/20 04:31 Dohle Bodies Not Reportable 07/18/20 04:31 Pelger-Huet Anomaly Not Reportable 07/18/20 04:31 Cheri Rods Not Reportable 07/18/20 04:31 Platelet Estimate Consistent w auto 07/18/20 04:31 Clumped Platelets Not Reportable 07/18/20 04:31 Plt Clumps, EDTA Not Reportable 07/18/20 04:31 Large Platelets Not Reportable 07/18/20 04:31 Giant Platelets Not Reportable 07/18/20 04:31 Platelet Satelliting Not Reportable 07/18/20 04:31 Plt Morphology Comment Not Reportable 07/18/20 04:31 RBC Morphology Not Reportable 07/18/20 04:31 Dimorphic RBCs Not Reportable 07/18/20 04:31 Polychromasia Not Reportable 07/18/20 04:31 Hypochromasia Not Reportable 07/18/20 04:31 Poikilocytosis Not Reportable 07/18/20 04:31 Anisocytosis 1+ 07/18/20 04:31 Microcytosis Not Reportable 07/18/20 04:31 Macrocytosis Not Reportable 07/18/20 04:31 Spherocytes Not Reportable 07/18/20 04:31 Pappenheimer Bodies Not Reportable 07/18/20 04:31 Sickle Cells Not Reportable 07/18/20 04:31 Target Cells Not Reportable 07/18/20 04:31 Tear Drop Cells Not Reportable 07/18/20 04:31 Ovalocytes Not Reportable 07/18/20 04:31 Helmet Cells Not Reportable 07/18/20 04:31 [place] Bodies Not Reportable 07/18/20 04:31 [place] Rings Not Reportable 07/18/20 04:31 [place] Cells Not Reportable 07/18/20 04:31 Bite Cells Not Reportable 07/18/20 04:31 Crenated Cell Not Reportable 07/18/20 04:31 Elliptocytes Not Reportable 07/18/20 04:31 Acanthocytes (Spur) Not Reportable 07/18/20 04:31 Rouleaux Not Reportable 07/18/20 04:31 Hemoglobin C Crystals Not Reportable 07/18/20 04:31 Schistocytes Not Reportable 07/18/20 04:31 Malaria parasites Not Reportable 07/18/20 04:31 Wilfredo Bodies Not Reportable 07/18/20 04:31 Hem Pathologist Commnt No 07/18/20 04:31 PT 13.7 Sec. (12.2-14.9) 07/18/20 04:31 INR 1.06 (0.87-1.13) 07/18/20 04:31 D-Dimer 275.27 ng/mlDDU (0-234) H 07/18/20 18:48 Sodium 141 mmol/L (137-145) 07/18/20 04:31 Potassium 4.9 mmol/L (3.6-5.0) 07/18/20 04:31 Chloride 101.3 mmol/L (98-107) 07/18/20 04:31 Carbon Dioxide 31 mmol/L (22-30) H D 07/18/20 04:31 Anion Gap 14 mmol/L 07/18/20 04:31 BUN 23 mg/dL (9-20) H 07/18/20 04:31 Creatinine 1.1 mg/dL (0.8-1.3) 07/18/20 04:31 Estimated GFR > 60 ml/min 07/18/20 04:31 BUN/Creatinine Ratio 21 % 07/18/20 04:31 Glucose 143 mg/dL (75-100) H 07/18/20 04:31 Calcium 8.7 mg/dL (8.4-10.2) 07/18/20 04:31 Ferritin 1164.0 ng/mL (30.0-300.0) H 07/18/20 18:48 Lactate Dehydrogenase 560 units/L (91-180) H 07/18/20 18:48 Troponin T < 0.010 ng/mL (0.00-0.029) 07/17/20 22:48 C-Reactive Protein 18.00 mg/dL (0.00-1.30) H 07/18/20 18:48 NT-Pro-B Natriuret Pep 290.3 pg/mL (0-900) 07/18/20 16:33 Procalcitonin 0.94 ng/mL (<0.15) 07/17/20 22:48 Coronavirus (PCR) Positive (Negative) A 07/18/20 08:50 Cabrera/IV: IV Catheter Type [Right Distal INT / Saline Lock Port Hand] Active Medications - Current Medications Current Medications: Generic Name Dose Route Start Last Admin Trade Name Freq PRN Reason Stop Dose Admin Acetaminophen 650 mg 07/17/20 22:21 07/18/20 23:52 Acetaminophen 325 Mg Tab PO 650 mg Q4H PRN Administration Pain MILD(1-3)/Fever >100.5/AWAD Albuterol 2.5 mg 07/18/20 16:14 07/18/20 19:45 Albuterol 2.5 Mg/3 Ml Nebu IH 2.5 mg Q4HRT PRN Administration Shortness Of Breath Azithromycin 500 mg 07/18/20 23:00 07/19/20 10:04 Azithromycin 250 Mg Tab PO 500 mg QDAY SHERON Administration Dexamethasone 6 mg 07/18/20 10:00 07/19/20 10:04 Dexamethasone 4 Mg/Ml Vial IV 07/26/20 10:01 6 mg Q24HR SHERON Administration Enoxaparin Sodium 40 mg 07/18/20 22:00 07/18/20 22:14 Enoxaparin 40 Mg/0.4 Ml Inj SUB-Q 40 mg QDAY@2200 SHERON Administration Protocol Ceftriaxone Sodium 2 gm in 100 mls @ 200 mls/hr 07/17/20 23:00 07/18/20 23:53 Rocephin/Ns 2 Gm/100 Ml IV 200 mls/hr Q24H SHERON Administration Protocol REMDESIVIR 200 mg/ Sodium 250 mls @ 500 mls/hr 07/19/20 15:00 Chloride IV 07/19/20 15:29 ONCE ONE REMDESIVIR 100 mg/ Sodium 250 mls @ 500 mls/hr 07/20/20 21:00 Chloride IV 07/23/20 21:29 Q24HR@2100 SHERON Magnesium Hydroxide 30 ml 07/17/20 22:21 Magnesium Hydroxide (Mom) Oral Liqd Udc PO Q4H PRN Constipation Morphine Sulfate 2 mg 07/17/20 22:21 Morphine 2 Mg/1 Ml Inj IV Q4H PRN Pain, Moderate (4-6) Ondansetron HCl 4 mg 07/17/20 22:21 Ondansetron 4 Mg/2 Ml Inj IV Q8H PRN Nausea And Vomiting Sodium Chloride 10 ml 07/17/20 22:01 07/17/20 22:13 Sodium Chloride 0.9% 10 Ml Flush Syringe IV 10 ml PRN PRN Administration LINE FLUSH Sodium Chloride 10 ml 07/18/20 10:00 07/19/20 10:04 Sodium Chloride 0.9% 10 Ml Flush Syringe IV 10 ml BID SHERON Administration Sodium Chloride 10 ml 07/17/20 22:21 Sodium Chloride 0.9% 10 Ml Flush Syringe IV PRN PRN LINE FLUSH Sodium Chloride 50 ml 07/19/20 15:00 Sodium Chloride 0.9% 50 Ml Ivpb IV 07/23/20 21:01 Q24HR@2100 SHERON
[2020-07-19] MEDS ORDERED: REMDESIVIR 200 MG in SODIUM CHLORIDE 0.9% 250ML 250 ML IV ONE (15:00)
[2020-07-19] MEDS ORDERED: REMDESIVIR 100 MG VIAL IV ONE (15:00)
[2020-07-19] MEDS: SODIUM CHLORIDE 0.9% 50 ML IVPB IV SCH (16:15)
[2020-07-20] MEDS: cefTRIAXone/NS 2 GM/100 ML 2 GM/100 ML BAG IV SCH ×2 (01:30→22:36)
[2020-07-20] MEDS: ENOXAPARIN 40 MG/0.4 ML INJ SUB-Q SCH ×2 (01:30→22:35)
[2020-07-20] MEDS: MORPHINE 2 MG/1 ML INJ IV PRN (02:21)
--- NOTE | 2020-07-20 08:29 | Progress Note ---
Assessment and Plan Assessment and plan: --Acute hypoxc respiratory failure; on high flow oxygen Current Visit: Yes Status: Acute Plan to address problem: 40 L /100% /O2 sats 95 Due to the underlying COVID-19 pneumonia. titrate O2 sats to more than 90% Treat the underlying cause Prone position as tolerated Home O2 evaluation --COVID-19 positive Continue contact and droplet isolation, IV steroids for total 10 days IV remdesivir per ID Patient is already on high flow oxygen Prone position as tolerated, inflammatory markers Anticoagulation per protocol, and supportive care Patient is critically ill, poor prognosis -- Pneumonia Current Visit: Yes Status: Acute Plan to address problem: Continue empiric IV antibiotics. Procalcitonin is elevated In view of patient's pneumonia and severe hypoxia Elevated D-dimers will get CTA chest to rule out PE -- DVT prophylaxis Current Visit: Yes Status: Acute Plan to address problem: Patient placed on subcutaneous Lovenox. -- Full code status Current Visit: Yes Status: Acute Plan to address problem: Patient is a full code. Closely monitor the patient and adjust management as needed Follow CTA chest, and inflammatory markers Consults recommendations noted and appreciated Plan of care reviewed with the patient and his nurse 07/20; patient is severely hypoxemic, on high flow oxygen 40 L/100%/O2 sats 95 Elevated D-dimers, patient is severely hypoxemic, will check CTA chest to rule o ut PE Also consider lower extremity venous Doppler to rule out DVT History Interval history: I have seen and examined the patient in ER awaiting room assignment COVID-19 patient in isolation Severely hypoxemic on high flow oxygen 40 L/100%/O2 sat 95 Patient complains of shortness of breath Generalized weakness Vital signs noted Hospitalist Physical - Constitutional Vitals: Temp Pulse Resp BP Pulse Ox 98.1 F 67 34 H 157/78 89 07/20/20 01:56 07/20/20 06:16 07/20/20 06:00 07/20/20 06:00 07/20/20 06:00 General appearance: Present: mild distress, well-nourished, other (Hypoxemic on high flow oxygen) - EENT Eyes: Present: PERRL, EOM intact - Neck Neck: Present: supple, normal ROM - Respiratory Respiratory effort: normal Respiratory: bilateral: diminished, rhonchi, negative: rales, wheezing - Cardiovascular Rhythm: regular Heart Sounds: Present: S1 & S2 - Extremities Extremities: no ischemia, No edema - Abdominal General gastrointestinal: soft, non-tender - Integumentary Integumentary: Present: clear, warm - Psychiatric Psychiatric: appropriate mood/affect, cooperative - Neurologic Neurologic: moves all extremities HEART Score - HEART Score Troponin: Troponin T < 0.010 ng/mL (0.00-0.029) 07/17/20 22:48 Results - Labs CBC & Chem 7: 07/18/20 04:31 07/20/20 08:56 Labs: Laboratory Last Values WBC 8.8 K/mm3 (4.5-11.0) 07/18/20 04:31 RBC 4.36 M/mm3 (3.65-5.03) 07/18/20 04:31 Hgb 14.2 gm/dl (11.8-15.2) 07/18/20 04:31 Hct 40.7 % (35.5-45.6) 07/18/20 04:31 MCV 93 fl (84-94) 07/18/20 04:31 MCH 33 pg (28-32) H 07/18/20 04:31 MCHC 35 % (32-34) H 07/18/20 04:31 RDW 13.1 % (13.2-15.2) L 07/18/20 04:31 Plt Count 149 K/mm3 (140-440) 07/18/20 04:31 Lymph % (Auto) 10.5 % (13.4-35.0) L 07/17/20 17:30 [place] % (Auto) 4.0 % (0.0-7.3) 07/17/20 17:30 Eos % (Auto) 0.0 % (0.0-4.3) 07/17/20 17:30 Baso % (Auto) 0.2 % (0.0-1.8) 07/17/20 17:30 Lymph # (Auto) 0.7 K/mm3 (1.2-5.4) L 07/17/20 17:30 [place] # (Auto) 0.3 K/mm3 (0.0-0.8) 07/17/20 17:30 Eos # (Auto) 0.0 K/mm3 (0.0-0.4) 07/17/20 17:30 Baso # (Auto) 0.0 K/mm3 (0.0-0.1) 07/17/20 17:30 Add Manual Diff Complete 07/18/20 04:31 Total Counted 100 07/18/20 04:31 Seg Neutrophils % Property And Equipment Clerk 07/18/20 04:31 Lymphocytes % (Manual) 5.0 % (13.4-35.0) L 07/18/20 04:31 Monocytes % (Manual) 3.0 % (0.0-7.3) 07/18/20 04:31 Nucleated RBC % Not Reportable 07/18/20 04:31 Seg Neutrophils # 5.4 K/mm3 (1.8-7.7) 07/17/20 17:30 Seg Neutrophils # Man 8.1 K/mm3 (1.8-7.7) H 07/18/20 04:31 Band Neutrophils # 0.0 K/mm3 07/18/20 04:31 Lymphocytes # (Manual) 0.4 K/mm3 (1.2-5.4) L 07/18/20 04:31 Abs React Lymphs (Man) 0.0 K/mm3 07/18/20 04:31 Monocytes # (Manual) 0.3 K/mm3 (0.0-0.8) 07/18/20 04:31 Eosinophils # (Manual) 0.0 K/mm3 (0.0-0.4) 07/18/20 04:31 Basophils # (Manual) 0.0 K/mm3 (0.0-0.1) 07/18/20 04:31 Metamyelocytes # 0.0 K/mm3 07/18/20 04:31 Myelocytes # 0.0 K/mm3 07/18/20 04:31 Promyelocytes # 0.0 K/mm3 07/18/20 04:31 Blast Cells # 0.0 K/mm3 07/18/20 04:31 WBC Morphology Not Reportable 07/18/20 04:31 Hypersegmented Neuts Not Reportable 07/18/20 04:31 Hyposegmented Neuts Not Reportable 07/18/20 04:31 Hypogranular Neuts Not Reportable 07/18/20 04:31 Smudge Cells Not Reportable 07/18/20 04:31 Toxic Granulation Not Reportable 07/18/20 04:31 Toxic Vacuolation Not Reportable 07/18/20 04:31 Dohle Bodies Not Reportable 07/18/20 04:31 Pelger-Huet Anomaly Not Reportable 07/18/20 04:31 Cheri Rods Not Reportable 07/18/20 04:31 Platelet Estimate Consistent w auto 07/18/20 04:31 Clumped Platelets Not Reportable 07/18/20 04:31 Plt Clumps, EDTA Not Reportable 07/18/20 04:31 Large Platelets Not Reportable 07/18/20 04:31 Giant Platelets Not Reportable 07/18/20 04:31 Platelet Satelliting Not Reportable 07/18/20 04:31 Plt Morphology Comment Not Reportable 07/18/20 04:31 RBC Morphology Not Reportable 07/18/20 04:31 Dimorphic RBCs Not Reportable 07/18/20 04:31 Polychromasia Not Reportable 07/18/20 04:31 Hypochromasia Not Reportable 07/18/20 04:31 Poikilocytosis Not Reportable 07/18/20 04:31 Anisocytosis 1+ 07/18/20 04:31 Microcytosis Not Reportable 07/18/20 04:31 Macrocytosis Not Reportable 07/18/20 04:31 Spherocytes Not Reportable 07/18/20 04:31 Pappenheimer Bodies Not Reportable 07/18/20 04:31 Sickle Cells Not Reportable 07/18/20 04:31 Target Cells Not Reportable 07/18/20 04:31 Tear Drop Cells Not Reportable 07/18/20 04:31 Ovalocytes Not Reportable 07/18/20 04:31 Helmet Cells Not Reportable 07/18/20 04:31 Siu-Ahtanum Bodies Not Reportable 07/18/20 04:31 [place] Rings Not Reportable 07/18/20 04:31 [place] Cells Not Reportable 07/18/20 04:31 Bite Cells Not Reportable 07/18/20 04:31 Crenated Cell Not Reportable 07/18/20 04:31 Elliptocytes Not Reportable 07/18/20 04:31 Acanthocytes (Spur) Not Reportable 07/18/20 04:31 Rouleaux Not Reportable 07/18/20 04:31 Hemoglobin C Crystals Not Reportable 07/18/20 04:31 Schistocytes Not Reportable 07/18/20 04:31 Malaria parasites Not Reportable 07/18/20 04:31 Wilfredo Bodies Not Reportable 07/18/20 04:31 Hem Pathologist Commnt No 07/18/20 04:31 PT 13.7 Sec. (12.2-14.9) 07/18/20 04:31 INR 1.06 (0.87-1.13) 07/18/20 04:31 D-Dimer 275.27 ng/mlDDU (0-234) H 07/18/20 18:48 Sodium 141 mmol/L (137-145) 07/18/20 04:31 Potassium 4.9 mmol/L (3.6-5.0) 07/18/20 04:31 Chloride 101.3 mmol/L (98-107) 07/18/20 04:31 Carbon Dioxide 31 mmol/L (22-30) H D 07/18/20 04:31 Anion Gap 14 mmol/L 07/18/20 04:31 BUN 23 mg/dL (9-20) H 07/18/20 04:31 Creatinine 1.1 mg/dL (0.8-1.3) 07/18/20 04:31 Estimated GFR > 60 ml/min 07/18/20 04:31 BUN/Creatinine Ratio 21 % 07/18/20 04:31 Glucose 143 mg/dL (75-100) H 07/18/20 04:31 Calcium 8.7 mg/dL (8.4-10.2) 07/18/20 04:31 Ferritin 1164.0 ng/mL (30.0-300.0) H 07/18/20 18:48 Lactate Dehydrogenase 560 units/L (91-180) H 07/18/20 18:48 Troponin T < 0.010 ng/mL (0.00-0.029) 07/17/20 22:48 C-Reactive Protein 18.00 mg/dL (0.00-1.30) H 07/18/20 18:48 NT-Pro-B Natriuret Pep 290.3 pg/mL (0-900) 07/18/20 16:33 Procalcitonin 0.94 ng/mL (<0.15) 07/17/20 22:48 Coronavirus (PCR) Positive (Negative) A 07/18/20 08:50 [place]rera/IV: IV Catheter Type [Right Distal INT / Saline Lock Port Hand] Active Medications - Current Medications Current Medications: Generic Name Dose Route Start Last Admin Trade Name Freq PRN Reason Stop Dose Admin Acetaminophen 650 mg 07/17/20 22:21 07/18/20 23:52 Acetaminophen 325 Mg Tab PO 650 mg Q4H PRN Administration Pain MILD(1-3)/Fever >100.5/AWAD Albuterol 2.5 mg 07/18/20 16:14 07/18/20 19:45 Albuterol 2.5 Mg/3 Ml Nebu IH 2.5 mg Q4HRT PRN Administration Shortness Of Breath Azithromycin 500 mg 07/18/20 23:00 07/19/20 10:04 Azithromycin 250 Mg Tab PO 07/21/20 10:01 500 mg QDAY SHERON Administration Dexamethasone 6 mg 07/18/20 10:00 07/19/20 10:04 Dexamethasone 4 Mg/Ml Vial IV 07/26/20 10:01 6 mg Q24HR SHERON Administration Enoxaparin Sodium 40 mg 07/18/20 22:00 07/20/20 01:30 Enoxaparin 40 Mg/0.4 Ml Inj SUB-Q 40 mg QDAY@2200 SHERON Administration Protocol Furosemide 40 mg 07/20/20 08:28 Furosemide 40 Mg/4 Ml Inj IV 07/20/20 08:29 ONCE ONE Ceftriaxone Sodium 2 gm in 100 mls @ 200 mls/hr 07/17/20 23:00 07/20/20 01:30 Rocephin/Ns 2 Gm/100 Ml IV 07/21/20 23:29 200 mls/hr Q24H SHERON Administration Protocol REMDESIVIR 100 mg/ Sodium 250 mls @ 500 mls/hr 07/20/20 21:00 Chloride IV 07/23/20 21:29 Q24HR@2100 SHERON Magnesium Hydroxide 30 ml 07/17/20 22:21 Magnesium Hydroxide (Mom) Oral Liqd Udc PO Q4H PRN Constipation Morphine Sulfate 2 mg 07/17/20 22:21 07/20/20 02:21 Morphine 2 Mg/1 Ml Inj IV 2 mg Q4H PRN Administration Pain, Moderate (4-6) Ondansetron HCl 4 mg 07/17/20 22:21 07/20/20 02:21 Ondansetron 4 Mg/2 Ml Inj IV 4 mg Q8H PRN Administration Nausea And Vomiting Sodium Chloride 10 ml 07/17/20 22:01 07/17/20 22:13 Sodium Chloride 0.9% 10 Ml Flush Syringe IV 10 ml PRN PRN Administration LINE FLUSH Sodium Chloride 10 ml 07/18/20 10:00 07/20/20 01:31 Sodium Chloride 0.9% 10 Ml Flush Syringe IV 10 ml BID SHERON Administration Sodium Chloride 10 ml 07/17/20 22:21 Sodium Chloride 0.9% 10 Ml Flush Syringe IV PRN PRN LINE FLUSH Sodium Chloride 50 ml 07/19/20 15:00 07/19/20 16:15 Sodium Chloride 0.9% 50 Ml Ivpb IV 07/23/20 21:01 50 ml Q24HR@2100 SHERON Administration
[2020-07-20] MEDS ORDERED: FUROSEMIDE 40 MG/4 ML INJ IV NR ×2 (08:30)
--- NOTE | 2020-07-20 08:32 | Progress Note ---
Assessment and Plan 60 y/o male with chest discomfort, shortness of breath and abnormal CXR 1. Continue steroids for 10 days. 2. Continue Remdesivir. Needs antibody test to see if candidate for plasma 3. Please ask patient prone as tolerated during the day and sleep prone at night 4. Giving lasix 40mg IV x1 today. Still in ED so do not know how accurate I/O will be. 5. Guarded prognosis Subjective Date of service: 07/20/20 Interval history: Appreciate ID help. Started on Remdesivir. Still on 40 liters and 100%. This happened overnight. Sats in the low 90's. Objective Vital Signs - 12hr 07/19/20 07/19/20 07/19/20 21:00 21:39 22:00 Temperature Pulse Rate 100 H 79 Respiratory 37 H 29 H Rate Blood Pressure 155/75 155/75 O2 Sat by Pulse 82 L 93 91 Oximetry 07/19/20 07/20/20 07/20/20 23:00 00:00 01:00 Temperature Pulse Rate 67 72 62 Respiratory 23 28 H 38 H Rate Blood Pressure 155/75 155/75 155/75 O2 Sat by Pulse 95 97 89 Oximetry 07/20/20 07/20/20 07/20/20 01:45 01:56 02:00 Temperature 98.1 F Pulse Rate 69 Respiratory 30 H 38 H Rate Blood Pressure 141/79 O2 Sat by Pulse 95 Oximetry 07/20/20 07/20/20 07/20/20 02:16 02:30 02:46 Temperature Pulse Rate 62 73 68 Respiratory 29 H 33 H 33 H Rate Blood Pressure 149/78 141/79 141/79 O2 Sat by Pulse 96 93 91 Oximetry 07/20/20 07/20/20 07/20/20 03:00 03:15 03:30 Temperature Pulse Rate 62 64 61 Respiratory 32 H 30 H 34 H Rate Blood Pressure 141/79 149/78 141/79 O2 Sat by Pulse 96 94 97 Oximetry 07/20/20 07/20/20 07/20/20 03:39 03:46 04:00 Temperature Pulse Rate 58 L 66 Respiratory 31 H 32 H Rate Blood Pressure 149/78 149/78 O2 Sat by Pulse 95 98 Oximetry 07/20/20 07/20/20 07/20/20 04:16 04:30 04:46 Temperature Pulse Rate 55 L 65 62 Respiratory 28 H 28 H 23 Rate Blood Pressure 157/78 157/78 157/78 O2 Sat by Pulse 96 83 L 97 Oximetry 07/20/20 07/20/20 06:00 06:16 Temperature Pulse Rate 63 67 Respiratory 34 H Rate Blood Pressure 157/78 O2 Sat by Pulse 89 Oximetry CBC and BMP: 07/18/20 04:31 07/18/20 04:31 ABG, PT/INR, D-dimer: PT/INR, D-dimer PT 13.7 Sec. (12.2-14.9) 07/18/20 04:31 INR 1.06 (0.87-1.13) 07/18/20 04:31 D-Dimer 275.27 ng/mlDDU (0-234) H 07/18/20 18:48 Abnormal lab findings: Abnormal Labs 07/17/20 07/17/20 07/17/20 17:30 17:30 22:48 MCH MCHC 35 H RDW Lymph % (Auto) 10.5 L Lymph # (Auto) 0.7 L Seg Neutrophils % 85.3 H Lymphocytes % (Manual) Seg Neutrophils # Man Lymphocytes # (Manual) D-Dimer 314.21 H Carbon Dioxide BUN 1 L Glucose 154 H Ferritin Lactate Dehydrogenase C-Reactive Protein Coronavirus (PCR) 07/17/20 07/17/20 07/18/20 22:48 22:48 04:31 MCH 33 H MCHC 35 H RDW 13.1 L Lymph % (Auto) Lymph # (Auto) Seg Neutrophils % Lymphocytes % (Manual) 5.0 L Seg Neutrophils # Man 8.1 H Lymphocytes # (Manual) 0.4 L D-Dimer Carbon Dioxide BUN Glucose 124 H Ferritin 889.3 H Lactate Dehydrogenase 832 H C-Reactive Protein 17.70 H Coronavirus (PCR) 07/18/20 07/18/20 07/18/20 04:31 08:50 18:48 MCH MCHC RDW Lymph % (Auto) Lymph # (Auto) Seg Neutrophils % Lymphocytes % (Manual) Seg Neutrophils # Man Lymphocytes # (Manual) D-Dimer 275.27 H Carbon Dioxide 31 H D BUN 23 H Glucose 143 H Ferritin Lactate Dehydrogenase C-Reactive Protein Coronavirus (PCR) Positive A 07/18/20 07/18/20 18:48 18:48 MCH MCHC RDW Lymph % (Auto) Lymph # (Auto) Seg Neutrophils % Lymphocytes % (Manual) Seg Neutrophils # Man Lymphocytes # (Manual) D-Dimer Carbon Dioxide BUN Glucose Ferritin 1164.0 H Lactate Dehydrogenase 560 H C-Reactive Protein 18.00 H Coronavirus (PCR)
[2020-07-20] MEDS: dexAMETHasone 4 MG/ML VIAL IV SCH (09:30)
[2020-07-20] MEDS: AZITHROMYCIN 250 MG TAB PO SCH (09:31)
[2020-07-20 09:51] LABS: Alanine Aminotransferase 18 units/L (7-56); BUN/Creatinine Ratio 24; Blood Urea Nitrogen 22 mg/dL (9-20); Calcium 8.6 mg/dL (8.4-10.2); Hemolysis Index 16
[2020-07-20 09:52] LABS: Bilirubin,Direct < 0.2 mg/dL (0-0.2)
--- NOTE | 2020-07-20 09:54 | Cat Scan Report ---
CTA CHEST WITH IV CONTRAST INDICATION: Acute respiratory failure, elevated d-dimer, possible PE. TECHNIQUE: Axial CT images were obtained through the chest after injection of 100 cc Omnipaque 350 IV contrast. 3 plane MIP reconstructions were produced. All CT scans at this location are performed using CT dose reduction for ALARA by means of automated exposure control. COMPARISON: Chest one view from 07/17/2020. FINDINGS: PULMONARY ARTERIES: No pulmonary emboli. AORTA AND ARTERIES: No significant abnormality. HEART: No significant abnormality. MEDIASTINUM: No significant abnormality. LUNGS: Generalized bilateral ground glass opacities are seen with interlobular septal thickening and dependent bilateral atelectasis. No pneumothorax, pleural effusion or other significant abnormality. ADDITIONAL FINDINGS: None. UPPER ABDOMEN: No acute findings. BONES: No acute abnormality. Mild thoracic spondylosis. IMPRESSION: 1. No CT evidence for pulmonary embolism. 2. Suspected bilateral pulmonary edema. Signer Name: Enrique Butler MD Signed: 07/20/2020 9:50 AM Workstation Name: [id number]
--- NOTE | 2020-07-20 15:03 | Progress Note ---
Assessment and Plan Cultures: SARS CoV2 PCR: Positive A/P: 60/M with: #Bilateral pneumonia: Secondary to COVID-19 #Acute hypoxic respiratory failure: on HFNC. Recs: -continue steroids: IV/PO Dexamethasone 6 mg daily x 10 days -continue Remdesivir, D2 -Procalcitonin elevated, continue empiric antibiotics x 5 days -D-dimer significantly worse, CTA negative for PE, consider DVT scans as well -prophylactic anticoagulation based on d-dimer per hospital protocol -trend ferritin, LDH, d-dimer, CRP every 2-3 days for risk stratification and to assess disease progression Deepa Braswell MD, FACP [facility] ([facility] O: [phone] F: [phone] Subjective Date of service: 07/20/20 Interval history: No fever. On HFNC. Objective - Exam Narrative Exam: Physical Exam (reviewed in chart to minimize risk of transmission) Constitutional: deferred Head, Ears, Nose: deferred Eyes: deferred Neck: deferred Oral: deferred Cardiovascular: deferred Respiratory: deferred GI: deferred Musculoskeletal: deferred Skin: deferred Hem/Lymphatic: deferred Psych: deferred Neurological: deferred - Constitutional Vitals: Vital Signs Temp Pulse Resp BP Pulse Ox 98.1 F 67 34 H 157/78 94 07/20/20 01:56 07/20/20 06:16 07/20/20 06:00 07/20/20 06:00 07/20/20 09:00 Temperature -Last 24 Hours Temperature 98.1 F - Labs CBC & Chem 7: 07/18/20 04:31 07/20/20 08:56 Labs: Abnormal lab results 07/20/20 07/20/20 07/20/20 Range/Units 08:56 08:56 08:56 D-Dimer 9523.70 H (0-234) ng/mlDDU BUN 22 H (9-20) mg/dL Glucose 219 H (75-100) mg/dL Ferritin 1581.0 H (30.0-300.0) ng/mL Lactate Dehydrogenase 739 H (91-180) units/L C-Reactive Protein 17.50 H (0.00-1.30) mg/dL Albumin 3.0 L (3.9-5) g/dL
[2020-07-20] MEDS ORDERED: FUROSEMIDE 40 MG/4 ML INJ IV ONE (17:35)
[2020-07-20] MEDS: ACETAMINOPHEN 325 MG TAB PO PRN (22:36)
--- NOTE | 2020-07-20 22:55 | Vascular Lab Report ---
DUPLEX DOPPLER LOWER EXTREMITY VEINS, BILATERAL INDICATION / CLINICAL INFORMATION: Elevated D-dimers /evaluate for DVT. TECHNIQUE: Duplex doppler imaging was performed through the veins of both lower extremities using venous wesly markos and other maneuvers. COMPARISON: None available. FINDINGS: RIGHT COMMON FEMORAL VEIN: Negative. RIGHT FEMORAL VEIN: Negative. RIGHT POPLITEAL VEIN: Negative. RIGHT CALF VEINS: Negative. LEFT COMMON FEMORAL VEIN: Negative. LEFT FEMORAL VEIN: Negative. LEFT POPLITEAL VEIN: Negative. LEFT CALF VEINS: Negative. ADDITIONAL FINDINGS: None. IMPRESSION: 1. No sonographic evidence for DVT in either lower extremity. Signer Name: Aldo Toney MD Signed: 07/20/2020 10:51 PM Workstation Name: [id number]
[2020-07-20] MEDS: REMDESIVIR 100 MG in SODIUM CHLORIDE 0.9% 250ML 250 ML IV SCH (23:38)
[2020-07-21] MEDS: SODIUM CHLORIDE 0.9% 50 ML IVPB IV SCH (00:54)
[2020-07-21] MEDS: FUROSEMIDE 40 MG/4 ML INJ IV SCH (06:04)
[2020-07-21] MEDS: dexAMETHasone 4 MG/ML VIAL IV SCH (10:56)
[2020-07-21] MEDS: AZITHROMYCIN 250 MG TAB PO SCH (10:57)
--- NOTE | 2020-07-21 12:59 | Progress Note ---
Assessment and Plan Cultures: SARS CoV2 PCR: Positive A/P: 60/M with: #Bilateral pneumonia: Secondary to COVID-19. #Acute hypoxic respiratory failure: on HFNC. D-dimer elevated, CTA negative for PE, DVT scan also negative. Recs: -continue steroids: IV/PO Dexamethasone 6 mg daily x 10 days -continue Remdesivir, D3 of 5 -Procalcitonin elevated, continue empiric antibiotics x 5 days -prophylactic anticoagulation based on d-dimer per hospital protocol -trend ferritin, LDH, d-dimer, CRP every 2-3 days for risk stratification and to assess disease progression -continue supportive care and oxygen weaning ID will sign off. Please call with questions. Deepa Braswell MD, FACP [facility] ([facility] O: [phone] F: [phone] Subjective Date of service: 07/21/20 Interval history: No fever. Remains on HFNC. Objective - Exam Narrative Exam: Physical Exam (reviewed in chart to minimize risk of transmission) Constitutional: deferred Head, Ears, Nose: deferred Eyes: deferred Neck: deferred Oral: deferred Cardiovascular: deferred Respiratory: deferred GI: deferred Musculoskeletal: deferred Skin: deferred Hem/Lymphatic: deferred Psych: deferred Neurological: deferred - Constitutional Vitals: Vital Signs Temp Pulse Resp BP Pulse Ox 98.6 F 61 16 150/79 99 07/20/20 22:45 07/21/20 12:07 07/21/20 12:07 07/21/20 12:07 07/21/20 12:30 Temperature -Last 24 Hours Temperature 98.6 F - Labs CBC & Chem 7: 07/18/20 04:31 07/20/20 08:56
--- NOTE | 2020-07-21 13:39 | Progress Note ---
Assessment and Plan 60 y/o male with chest discomfort, shortness of breath and abnormal CXR 1. Continue steroids for 10 days. 2. Continue Remdesivir. Needs antibody test to see if candidate for plasma 3. Please ask patient prone as tolerated during the day and sleep prone at night. Currently doing and tolerating 4. Giving lasix 40mg IV x1 today. Still in ED so do not know how accurate I/O will be. 5. Guarded prognosis Subjective Date of service: 07/21/20 Interval history: No acute events. Currently proned and tolerating. Down to 95% now on FiO2. BP elevated. I/O not accurate No labs today. Objective Vital Signs - 12hr 07/21/20 07/21/20 07/21/20 02:00 04:00 06:00 Pulse Rate 61 64 57 L Respiratory 25 H 31 H 26 H Rate Blood Pressure 148/91 140/87 148/91 Blood Pressure [Left] O2 Sat by Pulse 96 96 97 Oximetry 07/21/20 07/21/20 07/21/20 08:00 08:40 12:07 Pulse Rate 89 61 Respiratory 16 16 Rate Blood Pressure Blood Pressure 140/85 150/79 [Left] O2 Sat by Pulse 89 93 97 Oximetry 07/21/20 12:30 Pulse Rate Respiratory Rate Blood Pressure Blood Pressure [Left] O2 Sat by Pulse 99 Oximetry CBC and BMP: 07/18/20 04:31 07/20/20 08:56 ABG, PT/INR, D-dimer: PT/INR, D-dimer PT 13.7 Sec. (12.2-14.9) 07/18/20 04:31 INR 1.06 (0.87-1.13) 07/18/20 04:31 D-Dimer 9523.70 ng/mlDDU (0-234) H 07/20/20 08:56 Abnormal lab findings: Abnormal Labs 07/17/20 07/17/20 07/17/20 17:30 17:30 22:48 MCH MCHC 35 H RDW Lymph % (Auto) 10.5 L Lymph # (Auto) 0.7 L Seg Neutrophils % 85.3 H Lymphocytes % (Manual) Seg Neutrophils # Man Lymphocytes # (Manual) D-Dimer 314.21 H Carbon Dioxide BUN 1 L Glucose 154 H Ferritin Lactate Dehydrogenase C-Reactive Protein Albumin Coronavirus (PCR) 07/17/20 07/17/20 07/18/20 22:48 22:48 04:31 MCH 33 H MCHC 35 H RDW 13.1 L Lymph % (Auto) Lymph # (Auto) Seg Neutrophils % Lymphocytes % (Manual) 5.0 L Seg Neutrophils # Man 8.1 H Lymphocytes # (Manual) 0.4 L D-Dimer Carbon Dioxide BUN Glucose 124 H Ferritin 889.3 H Lactate Dehydrogenase 832 H C-Reactive Protein 17.70 H Albumin Coronavirus (PCR) 07/18/20 07/18/20 07/18/20 04:31 08:50 18:48 MCH MCHC RDW Lymph % (Auto) Lymph # (Auto) Seg Neutrophils % Lymphocytes % (Manual) Seg Neutrophils # Man Lymphocytes # (Manual) D-Dimer 275.27 H Carbon Dioxide 31 H D BUN 23 H Glucose 143 H Ferritin Lactate Dehydrogenase C-Reactive Protein Albumin Coronavirus (PCR) Positive A 07/18/20 07/18/20 07/20/20 18:48 18:48 08:56 MCH MCHC RDW Lymph % (Auto) Lymph # (Auto) Seg Neutrophils % Lymphocytes % (Manual) Seg Neutrophils # Man Lymphocytes # (Manual) D-Dimer Carbon Dioxide BUN 22 H Glucose 219 H Ferritin 1164.0 H Lactate Dehydrogenase 560 H 739 H C-Reactive Protein 18.00 H 17.50 H Albumin 3.0 L Coronavirus (PCR) 07/20/20 07/20/20 08:56 08:56 MCH MCHC RDW Lymph % (Auto) Lymph # (Auto) Seg Neutrophils % Lymphocytes % (Manual) Seg Neutrophils # Man Lymphocytes # (Manual) D-Dimer 9523.70 H Carbon Dioxide BUN Glucose Ferritin 1581.0 H Lactate Dehydrogenase C-Reactive Protein Albumin Coronavirus (PCR)
--- NOTE | 2020-07-21 17:03 | Progress Note ---
Assessment and Plan Assessment and plan: --Acute hypoxc respiratory failure; on high flow oxygen Current Visit: Yes Status: Acute Plan to address problem: 40 L /100% /O2 sats 95% 07/20/2020 35L/95% /O2 sat 94% 07/21/2020 Mild improvement, titrate O2 sats to more than 90% Due to the underlying COVID-19 pneumonia. Treat the underlying cause Prone position as tolerated Home O2 evaluation --COVID-19 positive Continue contact and droplet isolation, IV steroids for total 10 days IV remdesivir per ID Patient is already on high flow oxygen Prone position as tolerated, inflammatory markers Anticoagulation per protocol, and supportive care Patient is critically ill, poor prognosis --Elevated D-dimers; CTA chest negative for PE, mild pulmonary edema, I will add Lasix 40 mg IV 1 dose now, and daily thereafter lower extremity venous Doppler, negative for DVT -- Pneumonia Current Visit: Yes Status: Acute Plan to address problem: Continue empiric IV antibiotics. Procalcitonin is elevated In view of patient's pneumonia and severe hypoxia Elevated D-dimers will get CTA chest to rule out PE -- DVT prophylaxis Current Visit: Yes Status: Acute Plan to address problem: Patient placed on subcutaneous Lovenox. -- Full code status Current Visit: Yes Status: Acute Plan to address problem: Patient is a full code. Closely monitor the patient and adjust management as needed Follow CTA chest, and inflammatory markers Consults recommendations noted and appreciated Plan of care reviewed with the patient and his nurse 07/20; patient is severely hypoxemic, on high flow oxygen 40 L/100%/O2 sats 95 Elevated D-dimers, patient is severely hypoxemic, will check CTA chest to rule out PE Also consider lower extremity venous Doppler to rule out DVT 07/21: Patient remains on high flow oxygen however mild improvement from 40 L to 35 l Tolerating prone position, continue steroids remdesivir CTA chest negative for PE, lower extremity venous Doppler negative for DVT Consults recommendations noted and appreciated Poor prognosis, patient is aware History Interval history: I have seen and examined the patient at the bedside Patient's chart and medications reviewed No new events reported by the nursing Patient remains on high flow oxygen Vital signs noted Patient is sleeping on prone position And tolerating Hospitalist Physical - Constitutional Vitals: Temp Pulse Resp BP Pulse Ox 98.6 F 66 16 124/66 94 07/20/20 22:45 07/21/20 15:25 07/21/20 15:25 07/21/20 15:25 07/21/20 16:24 General appearance: Present: mild distress, well-nourished, other (Hypoxemic on high flow oxygen) - EENT Eyes: Present: PERRL, EOM intact - Neck Neck: Present: supple, normal ROM - Respiratory Respiratory effort: normal Respiratory: bilateral: diminished, negative: rales, rhonchi, wheezing - Cardiovascular Rhythm: regular Heart Sounds: Present: S1 & S2 - Extremities Extremities: no ischemia, No edema - Abdominal General gastrointestinal: soft, non-tender, non-distended - Integumentary Integumentary: Present: clear, warm - Psychiatric Psychiatric: appropriate mood/affect, cooperative - Neurologic Neurologic: CNII-XII intact, moves all extremities HEART Score - HEART Score Troponin: Troponin T < 0.010 ng/mL (0.00-0.029) 07/17/20 22:48 Results - Labs CBC & Chem 7: 07/18/20 04:31 07/20/20 08:56 Labs: Laboratory Last Values WBC 8.8 K/mm3 (4.5-11.0) 07/18/20 04:31 RBC 4.36 M/mm3 (3.65-5.03) 07/18/20 04:31 Hgb 14.2 gm/dl (11.8-15.2) 07/18/20 04:31 Hct 40.7 % (35.5-45.6) 07/18/20 04:31 MCV 93 fl (84-94) 07/18/20 04:31 MCH 33 pg (28-32) H 07/18/20 04:31 MCHC 35 % (32-34) H 07/18/20 04:31 RDW 13.1 % (13.2-15.2) L 07/18/20 04:31 Plt Count 149 K/mm3 (140-440) 07/18/20 04:31 Lymph % (Auto) 10.5 % (13.4-35.0) L 07/17/20 17:30 [place] % (Auto) 4.0 % (0.0-7.3) 07/17/20 17:30 Eos % (Auto) 0.0 % (0.0-4.3) 07/17/20 17:30 Baso % (Auto) 0.2 % (0.0-1.8) 07/17/20 17:30 Lymph # (Auto) 0.7 K/mm3 (1.2-5.4) L 07/17/20 17:30 [place] # (Auto) 0.3 K/mm3 (0.0-0.8) 07/17/20 17:30 Eos # (Auto) 0.0 K/mm3 (0.0-0.4) 07/17/20 17:30 Baso # (Auto) 0.0 K/mm3 (0.0-0.1) 07/17/20 17:30 Add Manual Diff Complete 07/18/20 04:31 Total Counted 100 07/18/20 04:31 Seg 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 % 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 07/18/20 04:31 Lymphocytes % (Manual) 5.0 % (13.4-35.0) L 07/18/20 04:31 Monocytes % (Manual) 3.0 % (0.0-7.3) 07/18/20 04:31 Nucleated RBC % Not Reportable 07/18/20 04:31 Seg Neutrophils # 5.4 K/mm3 (1.8-7.7) 07/17/20 17:30 Seg Neutrophils # Man 8.1 K/mm3 (1.8-7.7) H 07/18/20 04:31 Band Neutrophils # 0.0 K/mm3 07/18/20 04:31 Lymphocytes # (Manual) 0.4 K/mm3 (1.2-5.4) L 07/18/20 04:31 Abs React Lymphs (Man) 0.0 K/mm3 07/18/20 04:31 Monocytes # (Manual) 0.3 K/mm3 (0.0-0.8) 07/18/20 04:31 Eosinophils # (Manual) 0.0 K/mm3 (0.0-0.4) 07/18/20 04:31 Basophils # (Manual) 0.0 K/mm3 (0.0-0.1) 07/18/20 04:31 Metamyelocytes # 0.0 K/mm3 07/18/20 04:31 Myelocytes # 0.0 K/mm3 07/18/20 04:31 Promyelocytes # 0.0 K/mm3 07/18/20 04:31 Blast Cells # 0.0 K/mm3 07/18/20 04:31 WBC Morphology Not Reportable 07/18/20 04:31 Hypersegmented Neuts Not Reportable 07/18/20 04:31 Hyposegmented Neuts Not Reportable 07/18/20 04:31 Hypogranular Neuts Not Reportable 07/18/20 04:31 Smudge Cells Not Reportable 07/18/20 04:31 Toxic Granulation Not Reportable 07/18/20 04:31 Toxic Vacuolation Not Reportable 07/18/20 04:31 Dohle Bodies Not Reportable 07/18/20 04:31 Pelger-Huet Anomaly Not Reportable 07/18/20 04:31 Cheri Rods Not Reportable 07/18/20 04:31 Platelet Estimate Consistent w auto 07/18/20 04:31 Clumped Platelets Not Reportable 07/18/20 04:31 Plt Clumps, EDTA Not Reportable 07/18/20 04:31 Large Platelets Not Reportable 07/18/20 04:31 Giant Platelets Not Reportable 07/18/20 04:31 Platelet Satelliting Not Reportable 07/18/20 04:31 Plt Morphology Comment Not Reportable 07/18/20 04:31 RBC Morphology Not Reportable 07/18/20 04:31 Dimorphic RBCs Not Reportable 07/18/20 04:31 Polychromasia Not Reportable 07/18/20 04:31 Hypochromasia Not Reportable 07/18/20 04:31 Poikilocytosis Not Reportable 07/18/20 04:31 Anisocytosis 1+ 07/18/20 04:31 Microcytosis Not Reportable 07/18/20 04:31 Macrocytosis Not Reportable 07/18/20 04:31 Spherocytes Not Reportable 07/18/20 04:31 Pappenheimer Bodies Not Reportable 07/18/20 04:31 Sickle Cells Not Reportable 07/18/20 04:31 Target Cells Not Reportable 07/18/20 04:31 Tear Drop Cells Not Reportable 07/18/20 04:31 Ovalocytes Not Reportable 07/18/20 04:31 Helmet Cells Not Reportable 07/18/20 04:31 [place] Bodies Not Reportable 07/18/20 04:31 [place] Rings Not Reportable 07/18/20 04:31 [place] Enrique Cells Not Reportable 07/18/20 04:31 Bite Cells Not Reportable 07/18/20 04:31 Crenated Cell Not Reportable 07/18/20 04:31 Elliptocytes Not Reportable 07/18/20 04:31 Acanthocytes (Spur) Not Reportable 07/18/20 04:31 Rouleaux Not Reportable 07/18/20 04:31 Hemoglobin C Crystals Not Reportable 07/18/20 04:31 Schistocytes Not Reportable 07/18/20 04:31 Malaria parasites Not Reportable 07/18/20 04:31 Wilfredo Bodies Not Reportable 07/18/20 04:31 Hem Pathologist Commnt No 07/18/20 04:31 PT 13.7 Sec. (12.2-14.9) 07/18/20 04:31 INR 1.06 (0.87-1.13) 07/18/20 04:31 D-Dimer 9523.70 ng/mlDDU (0-234) H 07/20/20 08:56 Sodium 143 mmol/L (137-145) 07/20/20 08:56 Potassium 4.8 mmol/L (3.6-5.0) 07/20/20 08:56 Chloride 105.8 mmol/L (98-107) 07/20/20 08:56 Carbon Dioxide 27 mmol/L (22-30) 07/20/20 08:56 Anion Gap 15 mmol/L 07/20/20 08:56 BUN 22 mg/dL (9-20) H 07/20/20 08:56 Creatinine 0.9 mg/dL (0.8-1.3) 07/20/20 08:56 Estimated GFR > 60 ml/min 07/20/20 08:56 BUN/Creatinine Ratio 24 % 07/20/20 08:56 Glucose 219 mg/dL (75-100) H 07/20/20 08:56 Calcium 8.6 mg/dL (8.4-10.2) 07/20/20 08:56 Ferritin 1581.0 ng/mL (30.0-300.0) H 07/20/20 08:56 Total Bilirubin 0.30 mg/dL (0.1-1.2) 07/20/20 08:56 Direct Bilirubin < 0.2 mg/dL (0-0.2) 07/20/20 08:56 Indirect Bilirubin 0.1 mg/dL 07/20/20 08:56 AST 31 units/L (5-40) 07/20/20 08:56 ALT 18 units/L (7-56) 07/20/20 08:56 Alkaline Phosphatase 79 units/L (35-129) 07/20/20 08:56 Lactate Dehydrogenase 739 units/L (91-180) H 07/20/20 08:56 Troponin T < 0.010 ng/mL (0.00-0.029) 07/17/20 22:48 C-Reactive Protein 17.50 mg/dL (0.00-1.30) H 07/20/20 08:56 NT-Pro-B Natriuret Pep 290.3 pg/mL (0-900) 07/18/20 16:33 Total Protein 7.4 g/dL (6.3-8.2) 07/20/20 08:56 Albumin 3.0 g/dL (3.9-5) L 07/20/20 08:56 Albumin/Globulin Ratio 0.7 % 07/20/20 08:56 Procalcitonin 0.94 ng/mL (<0.15) 07/17/20 22:48 Coronavirus (PCR) Positive (Negative) A 07/18/20 08:50 SARS-CoV-2 IgG Ab Reactive (NonReactive) A 07/21/20 05:24 [place]/IV: IV Catheter Type [Right Distal INT / Saline Lock Port Hand] Active Medications - Current Medications Current Medications: Generic Name Dose Route Start Last Admin Trade Name Freq PRN Reason Stop Dose Admin Acetaminophen 650 mg 07/17/20 22:21 07/20/20 22:36 Acetaminophen 325 Mg Tab PO 650 mg Q4H PRN Administration Pain MILD(1-3)/Fever >100.5/AWAD Albuterol 2.5 mg 07/18/20 16:14 07/18/20 19:45 Albuterol 2.5 Mg/3 Ml Nebu IH 2.5 mg Q4HRT PRN Administration Shortness Of Breath Dexamethasone 6 mg 07/18/20 10:00 07/21/20 10:56 Dexamethasone 4 Mg/Ml Vial IV 07/26/20 10:01 6 mg Q24HR SHERON Administration Enoxaparin Sodium 40 mg 07/18/20 22:00 07/20/20 22:35 Enoxaparin 40 Mg/0.4 Ml Inj SUB-Q 40 mg QDAY@2200 SHERON Administration Protocol Furosemide 40 mg 07/21/20 06:00 07/21/20 06:04 Furosemide 40 Mg/4 Ml Inj IV 40 mg DAILY@0600 SHERON Administration Ceftriaxone Sodium 2 gm in 100 mls @ 200 mls/hr 07/17/20 23:00 07/20/20 22:36 Rocephin/Ns 2 Gm/100 Ml IV 07/21/20 23:29 200 mls/hr Q24H SHERON Administration Protocol REMDESIVIR 100 mg/ Sodium 250 mls @ 500 mls/hr 07/20/20 21:00 07/20/20 23:38 Chloride IV 07/23/20 21:29 500 mls/hr Q24HR@2100 SHERON Administration Magnesium Hydroxide 30 ml 07/17/20 22:21 Magnesium Hydroxide (Mom) Oral Liqd Udc PO Q4H PRN Constipation Morphine Sulfate 2 mg 07/17/20 22:21 07/20/20 02:21 Morphine 2 Mg/1 Ml Inj IV 2 mg Q4H PRN Administration Pain, Moderate (4-6) Ondansetron HCl 4 mg 07/17/20 22:21 07/20/20 02:21 Ondansetron 4 Mg/2 Ml Inj IV 4 mg Q8H PRN Administration Nausea And Vomiting Sodium Chloride 10 ml 07/17/20 22:01 07/17/20 22:13 Sodium Chloride 0.9% 10 Ml Flush Syringe IV 10 ml PRN PRN Administration LINE FLUSH Sodium Chloride 10 ml 07/18/20 10:00 07/21/20 10:43 Sodium Chloride 0.9% 10 Ml Flush Syringe IV 10 ml BID SHERON Administration Sodium Chloride 10 ml 07/17/20 22:21 Sodium Chloride 0.9% 10 Ml Flush Syringe IV PRN PRN LINE FLUSH Sodium Chloride 50 ml 07/19/20 15:00 07/21/20 00:54 Sodium Chloride 0.9% 50 Ml Ivpb IV 07/23/20 21:01 50 ml Q24HR@2100 SHERON Administration
[2020-07-22] MEDS: SODIUM CHLORIDE 0.9% 50 ML IVPB IV SCH ×2 (01:49→21:30)
[2020-07-22] MEDS: cefTRIAXone/NS 2 GM/100 ML 2 GM/100 ML BAG IV SCH (01:49)
[2020-07-22] MEDS: ENOXAPARIN 40 MG/0.4 ML INJ SUB-Q SCH ×2 (01:49→22:00)
[2020-07-22] MEDS: REMDESIVIR 100 MG in SODIUM CHLORIDE 0.9% 250ML 250 ML IV SCH ×2 (01:50→21:00)
[2020-07-22] MEDS: FUROSEMIDE 40 MG/4 ML INJ IV SCH (05:31)
[2020-07-22 06:20] LABS: Alanine Aminotransferase 15 units/L (7-56); Albumin 3.3 g/dL (3.9-5); BUN/Creatinine Ratio 35; Blood Urea Nitrogen 28 mg/dL (9-20); Calcium 8.3 mg/dL (8.4-10.2); Hemolysis Index 6
[2020-07-22 06:36] LABS: Bilirubin,Direct < 0.2 mg/dL (0-0.2)
[2020-07-22] MEDS: dexAMETHasone 4 MG/ML VIAL IV SCH (10:23)
--- NOTE | 2020-07-22 10:48 | Progress Note ---
Assessment and Plan 60 y/o male with chest discomfort, shortness of breath and abnormal CXR 1. Continue steroids for 10 days. 2. Continue Remdesivir. Not a candidate for Convalescent Plasma 3. Please ask patient prone as tolerated during the day and sleep prone at night. Currently doing and tolerating 4. Agree with daily lasix but will need labs to monitor renal function and electrolytes. 5. Guarded prognosis Subjective Date of service: 07/22/20 Interval history: Back up to 40 and 100. Good sats. Getting lasix daily now. Proning as well. Objective Vital Signs - 12hr 07/22/20 07/22/20 07/22/20 00:00 02:32 03:15 Temperature Pulse Rate Respiratory Rate Blood Pressure 134/80 134/80 O2 Sat by Pulse 94 94 Oximetry 07/22/20 07/22/20 03:21 04:23 Temperature 97.4 F L Pulse Rate 66 Respiratory 18 Rate Blood Pressure 134/80 146/76 O2 Sat by Pulse 100 Oximetry CBC and BMP: 07/18/20 04:31 07/22/20 04:31 ABG, PT/INR, D-dimer: PT/INR, D-dimer PT 13.7 Sec. (12.2-14.9) 07/18/20 04:31 INR 1.06 (0.87-1.13) 07/18/20 04:31 D-Dimer 9523.70 ng/mlDDU (0-234) H 07/20/20 08:56 Abnormal lab findings: Abnormal Labs 07/17/20 07/17/20 07/17/20 17:30 17:30 22:48 MCH MCHC 35 H RDW Lymph % (Auto) 10.5 L Lymph # (Auto) 0.7 L Seg Neutrophils % 85.3 H Lymphocytes % (Manual) Seg Neutrophils # Man Lymphocytes # (Manual) D-Dimer 314.21 H Sodium Carbon Dioxide BUN 1 L Glucose 154 H Calcium Ferritin Lactate Dehydrogenase C-Reactive Protein Albumin Coronavirus (PCR) SARS-CoV-2 IgG Ab 07/17/20 07/17/20 07/18/20 22:48 22:48 04:31 MCH 33 H MCHC 35 H RDW 13.1 L Lymph % (Auto) Lymph # (Auto) Seg Neutrophils % Lymphocytes % (Manual) 5.0 L Seg Neutrophils # Man 8.1 H Lymphocytes # (Manual) 0.4 L D-Dimer Sodium Carbon Dioxide BUN Glucose 124 H Calcium Ferritin 889.3 H Lactate Dehydrogenase 832 H C-Reactive Protein 17.70 H Albumin Coronavirus (PCR) SARS-CoV-2 IgG Ab 07/18/20 07/18/20 07/18/20 04:31 08:50 18:48 MCH MCHC RDW Lymph % (Auto) Lymph # (Auto) Seg Neutrophils % Lymphocytes % (Manual) Seg Neutrophils # Man Lymphocytes # (Manual) D-Dimer 275.27 H Sodium Carbon Dioxide 31 H D BUN 23 H Glucose 143 H Calcium Ferritin Lactate Dehydrogenase C-Reactive Protein Albumin Coronavirus (PCR) Positive A SARS-CoV-2 IgG Ab 07/18/20 07/18/20 07/20/20 18:48 18:48 08:56 MCH MCHC RDW Lymph % (Auto) Lymph # (Auto) Seg Neutrophils % Lymphocytes % (Manual) Seg Neutrophils # Man Lymphocytes # (Manual) D-Dimer Sodium Carbon Dioxide BUN 22 H Glucose 219 H Calcium Ferritin 1164.0 H Lactate Dehydrogenase 560 H 739 H C-Reactive Protein 18.00 H 17.50 H Albumin 3.0 L Coronavirus (PCR) SARS-CoV-2 IgG Ab 07/20/20 07/20/20 07/21/20 08:56 08:56 05:24 MCH MCHC RDW Lymph % (Auto) Lymph # (Auto) Seg Neutrophils % Lymphocytes % (Manual) Seg Neutrophils # Man Lymphocytes # (Manual) D-Dimer 9523.70 H Sodium Carbon Dioxide BUN Glucose Calcium Ferritin 1581.0 H Lactate Dehydrogenase C-Reactive Protein Albumin Coronavirus (PCR) SARS-CoV-2 IgG Ab Reactive A 07/22/20 04:31 MCH MCHC RDW Lymph % (Auto) Lymph # (Auto) Seg Neutrophils % Lymphocytes % (Manual) Seg Neutrophils # Man Lymphocytes # (Manual) D-Dimer Sodium 146 H Carbon Dioxide BUN 28 H Glucose 144 H Calcium 8.3 L Ferritin Lactate Dehydrogenase C-Reactive Protein Albumin 3.3 L Coronavirus (PCR) SARS-CoV-2 IgG Ab
--- NOTE | 2020-07-22 13:22 | Progress Note ---
Assessment and Plan Assessment and plan: --Acute hypoxc respiratory failure; on high flow oxygen Current Visit: Yes Status: Acute Plan to address problem: 40 L /100% /O2 sats 95% 07/20/2020 35L/95% /O2 sat 94% 07/21/2020 Mild improvement, titrate O2 sats to more than 90% Due to the underlying COVID-19 pneumonia. Treat the underlying cause Prone position as tolerated Home O2 evaluation --COVID-19 positive Continue contact and droplet isolation, IV dexamethasone for total 4/9 days IV remdesivir per ID / Patient is already on high flow oxygen Prone position as tolerated, inflammatory markers Anticoagulation per protocol, and supportive care Patient is critically ill, poor prognosis --Elevated D-dimers; CTA chest negative for PE, mild pulmonary edema, I will add Lasix 40 mg IV 1 dose now, and daily thereafter lower extremity venous Doppler, negative for DVT -- Pneumonia Current Visit: Yes Status: Acute Plan to address problem: Continue empiric IV antibiotics. Procalcitonin is elevated In view of patient's pneumonia and severe hypoxia Elevated D-dimers will get CTA chest to rule out PE -- DVT prophylaxis Current Visit: Yes Status: Acute Plan to address problem: Patient placed on subcutaneous Lovenox. -- Full code status Current Visit: Yes Status: Acute Plan to address problem: Patient is a full code. Closely monitor the patient and adjust management as needed Follow CTA chest, and inflammatory markers Consults recommendations noted and appreciated Plan of care reviewed with the patient and his nurse 07/20; patient is severely hypoxemic, on high flow oxygen 40 L/100%/O2 sats 95 Elevated D-dimers, patient is severely hypoxemic, will check CTA chest to rule out PE Also consider lower extremity venous Doppler to rule out DVT 07/21: Patient remains on high flow oxygen however mild improvement from 40 L to 35 l Tolerating prone position, continue steroids remdesivir CTA chest negative for PE, lower extremity venous Doppler negative for DVT Consults recommendations noted and appreciated Poor prognosis, patient is aware 07/22/2020; patient feels slightly better remains on high flow oxygen however lower than yesterday 35 L/95% /O2 sat 94% 07/21/2020 advised the patient to rest in prone position as tolerated Home oxygen evaluation History Interval history: Patient remains on high flow oxygen In isolation for Covid positive infection Feels slightly better still complains of mild shortness of breath Hospitalist Physical - Constitutional Vitals: Temp Pulse Resp BP Pulse Ox 97.4 F L 66 18 146/76 100 07/22/20 04:23 07/22/20 04:23 07/22/20 04:23 07/22/20 04:23 07/22/20 04:23 General appearance: Present: mild distress, well-nourished, other (Hypoxemic on high flow oxygen) - EENT Eyes: Present: PERRL, EOM intact - Neck Neck: Present: supple, normal ROM - Respiratory Respiratory effort: normal Respiratory: bilateral: diminished, rhonchi, negative: rales, wheezing - Cardiovascular Rhythm: regular Heart Sounds: Present: S1 & S2 - Extremities Extremities: no ischemia, No edema - Abdominal General gastrointestinal: soft, non-tender, non-distended, normal bowel sounds - Integumentary Integumentary: Present: clear, warm - Psychiatric Psychiatric: appropriate mood/affect, cooperative - Neurologic Neurologic: moves all extremities HEART Score - HEART Score Troponin: Troponin T < 0.010 ng/mL (0.00-0.029) 07/17/20 22:48 Results - Labs CBC & Chem 7: 07/18/20 04:31 07/22/20 04:31 Labs: Laboratory Last Values WBC 8.8 K/mm3 (4.5-11.0) 07/18/20 04:31 RBC 4.36 M/mm3 (3.65-5.03) 07/18/20 04:31 Hgb 14.2 gm/dl (11.8-15.2) 07/18/20 04:31 Hct 40.7 % (35.5-45.6) 07/18/20 04:31 MCV 93 fl (84-94) 07/18/20 04:31 MCH 33 pg (28-32) H 07/18/20 04:31 MCHC 35 % (32-34) H 07/18/20 04:31 RDW 13.1 % (13.2-15.2) L 07/18/20 04:31 Plt Count 149 K/mm3 (140-440) 07/18/20 04:31 Lymph % (Auto) 10.5 % (13.4-35.0) L 07/17/20 17:30 [place] % (Auto) 4.0 % (0.0-7.3) 07/17/20 17:30 Eos % (Auto) 0.0 % (0.0-4.3) 07/17/20 17:30 Baso % (Auto) 0.2 % (0.0-1.8) 07/17/20 17:30 Lymph # (Auto) 0.7 K/mm3 (1.2-5.4) L 07/17/20 17:30 [place] # (Auto) 0.3 K/mm3 (0.0-0.8) 07/17/20 17:30 Eos # (Auto) 0.0 K/mm3 (0.0-0.4) 07/17/20 17:30 Baso # (Auto) 0.0 K/mm3 (0.0-0.1) 07/17/20 17:30 Add Manual Diff Complete 07/18/20 04:31 Total Counted 100 07/18/20 04:31 Seg Neutrophils % Machine [employer] 07/18/20 04:31 Lymphocytes % (Manual) 5.0 % (13.4-35.0) L 07/18/20 04:31 Monocytes % (Manual) 3.0 % (0.0-7.3) 07/18/20 04:31 Nucleated RBC % Not Reportable 07/18/20 04:31 Seg Neutrophils # 5.4 K/mm3 (1.8-7.7) 07/17/20 17:30 Seg Neutrophils # Man 8.1 K/mm3 (1.8-7.7) H 07/18/20 04:31 Band Neutrophils # 0.0 K/mm3 07/18/20 04:31 Lymphocytes # (Manual) 0.4 K/mm3 (1.2-5.4) L 07/18/20 04:31 Abs React Lymphs (Man) 0.0 K/mm3 07/18/20 04:31 Monocytes # (Manual) 0.3 K/mm3 (0.0-0.8) 07/18/20 04:31 Eosinophils # (Manual) 0.0 K/mm3 (0.0-0.4) 07/18/20 04:31 Basophils # (Manual) 0.0 K/mm3 (0.0-0.1) 07/18/20 04:31 Metamyelocytes # 0.0 K/mm3 07/18/20 04:31 Myelocytes # 0.0 K/mm3 07/18/20 04:31 Promyelocytes # 0.0 K/mm3 07/18/20 04:31 Blast Cells # 0.0 K/mm3 07/18/20 04:31 WBC Morphology Not Reportable 07/18/20 04:31 Hypersegmented Neuts Not Reportable 07/18/20 04:31 Hyposegmented Neuts Not Reportable 07/18/20 04:31 Hypogranular Neuts Not Reportable 07/18/20 04:31 Smudge Cells Not Reportable 07/18/20 04:31 Toxic Granulation Not Reportable 07/18/20 04:31 Toxic Vacuolation Not Reportable 07/18/20 04:31 Dohle Bodies Not Reportable 07/18/20 04:31 Pelger-Huet Anomaly Not Reportable 07/18/20 04:31 Cheri Rods Not Reportable 07/18/20 04:31 Platelet Estimate Consistent w auto 07/18/20 04:31 Clumped Platelets Not Reportable 07/18/20 04:31 Plt Clumps, EDTA Not Reportable 07/18/20 04:31 Large Platelets Not Reportable 07/18/20 04:31 Giant Platelets Not Reportable 07/18/20 04:31 Platelet Satelliting Not Reportable 07/18/20 04:31 Plt Morphology Comment Not Reportable 07/18/20 04:31 RBC Morphology Not Reportable 07/18/20 04:31 Dimorphic RBCs Not Reportable 07/18/20 04:31 Polychromasia Not Reportable 07/18/20 04:31 Hypochromasia Not Reportable 07/18/20 04:31 Poikilocytosis Not Reportable 07/18/20 04:31 Anisocytosis 1+ 07/18/20 04:31 Microcytosis Not Reportable 07/18/20 04:31 Macrocytosis Not Reportable 07/18/20 04:31 Spherocytes Not Reportable 07/18/20 04:31 Pappenheimer Bodies Not Reportable 07/18/20 04:31 Sickle Cells Not Reportable 07/18/20 04:31 Target Cells Not Reportable 07/18/20 04:31 Tear Drop Cells Not Reportable 07/18/20 04:31 Ovalocytes Not Reportable 07/18/20 04:31 Helmet Cells Not Reportable 07/18/20 04:31 Siu-[place] Bodies Not Reportable 07/18/20 04:31 [place] Rings Not Reportable 07/18/20 04:31 [place] Cells Not Reportable 07/18/20 04:31 Bite Cells Not Reportable 07/18/20 04:31 Crenated Cell Not Reportable 07/18/20 04:31 Elliptocytes Not Reportable 07/18/20 04:31 Acanthocytes (Spur) Not Reportable 07/18/20 04:31 Rouleaux Not Reportable 07/18/20 04:31 Hemoglobin C Crystals Not Reportable 07/18/20 04:31 Schistocytes Not Reportable 07/18/20 04:31 Malaria parasites Not Reportable 07/18/20 04:31 Wilfredo Bodies Not Reportable 07/18/20 04:31 Hem Pathologist Commnt No 07/18/20 04:31 PT 13.7 Sec. (12.2-14.9) 07/18/20 04:31 INR 1.06 (0.87-1.13) 07/18/20 04:31 D-Dimer 9523.70 ng/mlDDU (0-234) H 07/20/20 08:56 Sodium 146 mmol/L (137-145) H 07/22/20 04:31 Potassium 4.2 mmol/L (3.6-5.0) 07/22/20 04:31 Chloride 103.6 mmol/L (98-107) 07/22/20 04:31 Carbon Dioxide 28 mmol/L (22-30) 07/22/20 04:31 Anion Gap 19 mmol/L 07/22/20 04:31 BUN 28 mg/dL (9-20) H 07/22/20 04:31 Creatinine 0.8 mg/dL (0.8-1.3) 07/22/20 04:31 Estimated GFR > 60 ml/min 07/22/20 04:31 BUN/Creatinine Ratio 35 % 07/22/20 04:31 Glucose 144 mg/dL (75-100) H 07/22/20 04:31 Calcium 8.3 mg/dL (8.4-10.2) L 07/22/20 04:31 Ferritin 1581.0 ng/mL (30.0-300.0) H 07/20/20 08:56 Total Bilirubin 0.20 mg/dL (0.1-1.2) 07/22/20 04:31 Direct Bilirubin < 0.2 mg/dL (0-0.2) 07/22/20 04:31 Indirect Bilirubin 0.0 mg/dL 07/22/20 04:31 AST 24 units/L (5-40) 07/22/20 04:31 ALT 15 units/L (7-56) 07/22/20 04:31 Alkaline Phosphatase 95 units/L (35-129) 07/22/20 04:31 Lactate Dehydrogenase 739 units/L (91-180) H 07/20/20 08:56 Troponin T < 0.010 ng/mL (0.00-0.029) 07/17/20 22:48 C-Reactive Protein 17.50 mg/dL (0.00-1.30) H 07/20/20 08:56 NT-Pro-B Natriuret Pep 290.3 pg/mL (0-900) 07/18/20 16:33 Total Protein 7.3 g/dL (6.3-8.2) 07/22/20 04:31 Albumin 3.3 g/dL (3.9-5) L 07/22/20 04:31 Albumin/Globulin Ratio 0.8 % 07/22/20 04:31 Procalcitonin 0.94 ng/mL (<0.15) 07/17/20 22:48 Coronavirus (PCR) Positive (Negative) A 07/18/20 08:50 SARS-CoV-2 IgG Ab Reactive (NonReactive) A 07/21/20 05:24 Cabrera/IV: Voiding Method Urinal IV Catheter Type [Left INT / Saline Lock Antecubital] IV Catheter Type [Right Distal INT / Saline Lock Port Hand] Active Medications - Current Medications Current Medications: Generic Name Dose Route Start Last Admin Trade Name Freq PRN Reason Stop Dose Admin Acetaminophen 650 mg 07/17/20 22:21 07/20/20 22:36 Acetaminophen 325 Mg Tab PO 650 mg Q4H PRN Administration Pain MILD(1-3)/Fever >100.5/AWAD Albuterol 2.5 mg 07/18/20 16:14 07/18/20 19:45 Albuterol 2.5 Mg/3 Ml Nebu IH 2.5 mg Q4HRT PRN Administration Shortness Of Breath Dexamethasone 6 mg 07/18/20 10:00 07/22/20 10:23 Dexamethasone 4 Mg/Ml Vial IV 07/26/20 10:01 6 mg Q24HR SHERON Administration Enoxaparin Sodium 40 mg 07/18/20 22:00 07/22/20 01:49 Enoxaparin 40 Mg/0.4 Ml Inj SUB-Q 40 mg QDAY@2200 SHERON Administration Protocol Furosemide 40 mg 07/21/20 06:00 07/22/20 05:31 Furosemide 40 Mg/4 Ml Inj IV 40 mg DAILY@0600 SHERON Administration REMDESIVIR 100 mg/ Sodium 250 mls @ 500 mls/hr 07/20/20 21:00 07/22/20 01:50 Chloride IV 07/23/20 21:29 500 mls/hr Q24HR@2100 SHERON Administration Magnesium Hydroxide 30 ml 07/17/20 22:21 Magnesium Hydroxide (Mom) Oral Liqd Udc PO Q4H PRN Constipation Morphine Sulfate 2 mg 07/17/20 22:21 07/20/20 02:21 Morphine 2 Mg/1 Ml Inj IV 2 mg Q4H PRN Administration Pain, Moderate (4-6) Ondansetron HCl 4 mg 07/17/20 22:21 07/20/20 02:21 Ondansetron 4 Mg/2 Ml Inj IV 4 mg Q8H PRN Administration Nausea And Vomiting Sodium Chloride 10 ml 07/17/20 22:01 07/17/20 22:13 Sodium Chloride 0.9% 10 Ml Flush Syringe IV 10 ml PRN PRN Administration LINE FLUSH Sodium Chloride 10 ml 07/18/20 10:00 07/22/20 10:24 Sodium Chloride 0.9% 10 Ml Flush Syringe IV 10 ml BID SHERON Administration Sodium Chloride 10 ml 07/17/20 22:21 07/22/20 05:31 Sodium Chloride 0.9% 10 Ml Flush Syringe IV 10 ml PRN PRN Administration LINE FLUSH Sodium Chloride 50 ml 07/19/20 15:00 07/22/20 01:49 Sodium Chloride 0.9% 50 Ml Ivpb IV 07/23/20 21:01 50 ml Q24HR@2100 SHERON Administration
[2020-07-23] MEDS: MORPHINE 2 MG/1 ML INJ IV PRN (00:02)
[2020-07-23] MEDS: FUROSEMIDE 40 MG/4 ML INJ IV SCH (06:09)
--- NOTE | 2020-07-23 10:32 | Progress Note ---
Assessment and Plan Assessment and plan: --Acute hypoxc respiratory failure; on high flow oxygen Current Visit: Yes Status: Acute Plan to address problem: 40 L /100% /O2 sats 95% 07/20/2020 35L/95% /O2 sat 94% 07/21/2020 40 L/100%/91 O2 sats 07/23/20 Mild improvement, titrate O2 sats to more than 90% Due to the underlying COVID-19 pneumonia. Treat the underlying cause Prone position as tolerated Home O2 evaluation --COVID-19 positive Continue contact and droplet isolation, IV dexamethasone for total 4/9 days IV remdesivir per ID 08/25 Patient is already on high flow oxygen Prone position as tolerated, inflammatory markers Anticoagulation per protocol, and supportive care Patient is critically ill, poor prognosis SARS to Covid IgG antibodies positive, no indication for convalescent --Elevated D-dimers; CTA chest negative for PE, mild pulmonary edema, I will add Lasix 40 mg IV 1 dose now, and daily thereafter lower extremity venous Doppler, negative for DVT -- Pneumonia Current Visit: Yes Status: Acute Plan to address problem: Continue empiric IV antibiotics. Procalcitonin is elevated In view of patient's pneumonia and severe hypoxia Elevated D-dimers will get CTA chest to rule out PE -- DVT prophylaxis Current Visit: Yes Status: Acute Plan to address problem: Patient placed on subcutaneous Lovenox. -- Full code status Current Visit: Yes Status: Acute Plan to address problem: Patient is a full code. Closely monitor the patient and adjust management as needed Follow CTA chest, and inflammatory markers Consults recommendations noted and appreciated Plan of care reviewed with the patient and his nurse 07/20; patient is severely hypoxemic, on high flow oxygen 40 L/100%/O2 sats 95 Elevated D-dimers, patient is severely hypoxemic, will check CTA chest to rule out PE Also consider lower extremity venous Doppler to rule out DVT 07/21: Patient remains on high flow oxygen however mild improvement from 40 L to 35 l Tolerating prone position, continue steroids remdesivir CTA chest negative for PE, lower extremity venous Doppler negative for DVT Consults recommendations noted and appreciated Poor prognosis, patient is aware 07/22/2020; patient feels slightly better remains on high flow oxygen however lower than yesterday 35 L/95% /O2 sat 94% 07/21/2020 advised the patient to rest in prone position as tolerated Home oxygen evaluation 08/22/2020; remains on high flow oxygen, continue steroids remdesivir, prone position and comfort care Patient is critically ill with very poor prognosis and prolonged hypoxemia on high flow oxygen Plan of care reviewed with the patient and his nurse History Interval history: Patient was admitted with COVID-19 infection Remains on high flow oxygen 40l/100%/91, critically ill, poor prognosis Patient complains of mild shortness of breath and cough Slightly better than yesterday Vital signs noted Hospitalist Physical - Constitutional Vitals: Temp Pulse Resp BP Pulse Ox 98.9 F 93 H 20 137/78 86 07/23/20 06:41 07/23/20 06:41 07/23/20 08:48 07/23/20 06:41 07/23/20 08:57 General appearance: Present: mild distress, well-nourished, other (Hypoxemic on high flow oxygen) - EENT Eyes: Present: PERRL, EOM intact - Neck Neck: Present: supple, normal ROM - Respiratory Respiratory effort: normal, labored Respiratory: bilateral: diminished, rhonchi, negative: rales, wheezing - Cardiovascular Rhythm: regular Heart Sounds: Present: S1 & S2 - Extremities Extremities: no ischemia, No edema - Abdominal General gastrointestinal: soft, non-tender, non-distended, normal bowel sounds - Integumentary Integumentary: Present: clear, warm - Psychiatric Psychiatric: appropriate mood/affect, cooperative - Neurologic Neurologic: moves all extremities HEART Score - HEART Score Troponin: Troponin T < 0.010 ng/mL (0.00-0.029) 07/17/20 22:48 Results - Labs CBC & Chem 7: 07/18/20 04:31 07/22/20 04:31 Labs: Laboratory Last Values WBC 8.8 K/mm3 (4.5-11.0) 07/18/20 04:31 RBC 4.36 M/mm3 (3.65-5.03) 07/18/20 04:31 Hgb 14.2 gm/dl (11.8-15.2) 07/18/20 04:31 Hct 40.7 % (35.5-45.6) 07/18/20 04:31 MCV 93 fl (84-94) 07/18/20 04:31 MCH 33 pg (28-32) H 07/18/20 04:31 MCHC 35 % (32-34) H 07/18/20 04:31 RDW 13.1 % (13.2-15.2) L 07/18/20 04:31 Plt Count 149 K/mm3 (140-440) 07/18/20 04:31 Lymph % (Auto) 10.5 % (13.4-35.0) L 07/17/20 17:30 [place] % (Auto) 4.0 % (0.0-7.3) 07/17/20 17:30 Eos % (Auto) 0.0 % (0.0-4.3) 07/17/20 17:30 Baso % (Auto) 0.2 % (0.0-1.8) 07/17/20 17:30 Lymph # (Auto) 0.7 K/mm3 (1.2-5.4) L 07/17/20 17:30 [place] # (Auto) 0.3 K/mm3 (0.0-0.8) 07/17/20 17:30 Eos # (Auto) 0.0 K/mm3 (0.0-0.4) 07/17/20 17:30 Baso # (Auto) 0.0 K/mm3 (0.0-0.1) 07/17/20 17:30 Add Manual Diff Complete 07/18/20 04:31 Total Counted 100 07/18/20 04:31 Seg Neutrophils % [employer] Job [employer] 07/18/20 04:31 Lymphocytes % (Manual) 5.0 % (13.4-35.0) L 07/18/20 04:31 Monocytes % (Manual) 3.0 % (0.0-7.3) 07/18/20 04:31 Nucleated RBC % Not Reportable 07/18/20 04:31 Seg Neutrophils # 5.4 K/mm3 (1.8-7.7) 07/17/20 17:30 Seg Neutrophils # Man 8.1 K/mm3 (1.8-7.7) H 07/18/20 04:31 Band Neutrophils # 0.0 K/mm3 07/18/20 04:31 Lymphocytes # (Manual) 0.4 K/mm3 (1.2-5.4) L 07/18/20 04:31 Abs React Lymphs (Man) 0.0 K/mm3 07/18/20 04:31 Monocytes # (Manual) 0.3 K/mm3 (0.0-0.8) 07/18/20 04:31 Eosinophils # (Manual) 0.0 K/mm3 (0.0-0.4) 07/18/20 04:31 Basophils # (Manual) 0.0 K/mm3 (0.0-0.1) 07/18/20 04:31 Metamyelocytes # 0.0 K/mm3 07/18/20 04:31 Myelocytes # 0.0 K/mm3 07/18/20 04:31 Promyelocytes # 0.0 K/mm3 07/18/20 04:31 Blast Cells # 0.0 K/mm3 07/18/20 04:31 WBC Morphology Not Reportable 07/18/20 04:31 Hypersegmented Neuts Not Reportable 07/18/20 04:31 Hyposegmented Neuts Not Reportable 07/18/20 04:31 Hypogranular Neuts Not Reportable 07/18/20 04:31 Smudge Cells Not Reportable 07/18/20 04:31 Toxic Granulation Not Reportable 07/18/20 04:31 Toxic Vacuolation Not Reportable 07/18/20 04:31 Dohle Bodies Not Reportable 07/18/20 04:31 Pelger-Huet Anomaly Not Reportable 07/18/20 04:31 Cheri Rods Not Reportable 07/18/20 04:31 Platelet Estimate Consistent w auto 07/18/20 04:31 Clumped Platelets Not Reportable 07/18/20 04:31 Plt Clumps, EDTA Not Reportable 07/18/20 04:31 Large Platelets Not Reportable 07/18/20 04:31 Giant Platelets Not Reportable 07/18/20 04:31 Platelet Satelliting Not Reportable 07/18/20 04:31 Plt Morphology Comment Not Reportable 07/18/20 04:31 RBC Morphology Not Reportable 07/18/20 04:31 Dimorphic RBCs Not Reportable 07/18/20 04:31 Polychromasia Not Reportable 07/18/20 04:31 Hypochromasia Not Reportable 07/18/20 04:31 Poikilocytosis Not Reportable 07/18/20 04:31 Anisocytosis 1+ 07/18/20 04:31 Microcytosis Not Reportable 07/18/20 04:31 Macrocytosis Not Reportable 07/18/20 04:31 Spherocytes Not Reportable 07/18/20 04:31 Pappenheimer Bodies Not Reportable 07/18/20 04:31 Sickle Cells Not Reportable 07/18/20 04:31 Target Cells Not Reportable 07/18/20 04:31 Tear Drop Cells Not Reportable 07/18/20 04:31 Ovalocytes Not Reportable 07/18/20 04:31 Helmet Cells Not Reportable 07/18/20 04:31 Si[place] Bodies Not Reportable 07/18/20 04:31 [place] Rings Not Reportable 07/18/20 04:31 [place] Cells Not Reportable 07/18/20 04:31 Bite Cells Not Reportable 07/18/20 04:31 Crenated Cell Not Reportable 07/18/20 04:31 Elliptocytes Not Reportable 07/18/20 04:31 Acanthocytes (Spur) Not Reportable 07/18/20 04:31 Rouleaux Not Reportable 07/18/20 04:31 Hemoglobin C Crystals Not Reportable 07/18/20 04:31 Schistocytes Not Reportable 07/18/20 04:31 Malaria parasites Not Reportable 07/18/20 04:31 Wilfredo Bodies Not Reportable 07/18/20 04:31 Hem Pathologist Commnt No 07/18/20 04:31 PT 13.7 Sec. (12.2-14.9) 07/18/20 04:31 INR 1.06 (0.87-1.13) 07/18/20 04:31 D-Dimer 9523.70 ng/mlDDU (0-234) H 07/20/20 08:56 Sodium 146 mmol/L (137-145) H 07/22/20 04:31 Potassium 4.2 mmol/L (3.6-5.0) 07/22/20 04:31 Chloride 103.6 mmol/L (98-107) 07/22/20 04:31 Carbon Dioxide 28 mmol/L (22-30) 07/22/20 04:31 Anion Gap 19 mmol/L 07/22/20 04:31 BUN 28 mg/dL (9-20) H 07/22/20 04:31 Creatinine 0.8 mg/dL (0.8-1.3) 07/22/20 04:31 Estimated GFR > 60 ml/min 07/22/20 04:31 BUN/Creatinine Ratio 35 % 07/22/20 04:31 Glucose 144 mg/dL (75-100) H 07/22/20 04:31 Calcium 8.3 mg/dL (8.4-10.2) L 07/22/20 04:31 Ferritin 1581.0 ng/mL (30.0-300.0) H 07/20/20 08:56 Total Bilirubin 0.20 mg/dL (0.1-1.2) 07/22/20 04:31 Direct Bilirubin < 0.2 mg/dL (0-0.2) 07/22/20 04:31 Indirect Bilirubin 0.0 mg/dL 07/22/20 04:31 AST 24 units/L (5-40) 07/22/20 04:31 ALT 15 units/L (7-56) 07/22/20 04:31 Alkaline Phosphatase 95 units/L (35-129) 07/22/20 04:31 Lactate Dehydrogenase 739 units/L (91-180) H 07/20/20 08:56 Troponin T < 0.010 ng/mL (0.00-0.029) 07/17/20 22:48 C-Reactive Protein 17.50 mg/dL (0.00-1.30) H 07/20/20 08:56 NT-Pro-B Natriuret Pep 290.3 pg/mL (0-900) 07/18/20 16:33 Total Protein 7.3 g/dL (6.3-8.2) 07/22/20 04:31 Albumin 3.3 g/dL (3.9-5) L 07/22/20 04:31 Albumin/Globulin Ratio 0.8 % 07/22/20 04:31 Procalcitonin 0.94 ng/mL (<0.15) 07/17/20 22:48 Coronavirus (PCR) Positive (Negative) A 07/18/20 08:50 SARS-CoV-2 IgG Ab Reactive (NonReactive) A 07/21/20 05:24 Cabrera/IV: Voiding Method Urinal IV Catheter Type [Left INT / Saline Lock Antecubital] IV Catheter Type [Right Distal INT / Saline Lock Port Hand] Active Medications - Current Medications Current Medications: Generic Name Dose Route Start Last Admin Trade Name Freq PRN Reason Stop Dose Admin Acetaminophen 650 mg 07/17/20 22:21 07/20/20 22:36 Acetaminophen 325 Mg Tab PO 650 mg Q4H PRN Administration Pain MILD(1-3)/Fever >100.5/AWAD Albuterol 2.5 mg 07/18/20 16:14 07/18/20 19:45 Albuterol 2.5 Mg/3 Ml Nebu IH 2.5 mg Q4HRT PRN Administration Shortness Of Breath Dexamethasone 6 mg 07/18/20 10:00 07/22/20 10:23 Dexamethasone 4 Mg/Ml Vial IV 07/26/20 10:01 6 mg Q24HR SHERON Administration Enoxaparin Sodium 40 mg 07/18/20 22:00 07/22/20 22:00 Enoxaparin 40 Mg/0.4 Ml Inj SUB-Q 40 mg QDAY@2200 SHERON Administration Protocol Furosemide 40 mg 07/21/20 06:00 07/23/20 06:09 Furosemide 40 Mg/4 Ml Inj IV 40 mg DAILY@0600 SHERON Administration REMDESIVIR 100 mg/ Sodium 250 mls @ 500 mls/hr 07/20/20 21:00 07/22/20 21:00 Chloride IV 07/23/20 21:29 500 mls/hr Q24HR@2100 SHERON Administration Magnesium Hydroxide 30 ml 07/17/20 22:21 Magnesium Hydroxide (Mom) Oral Liqd Udc PO Q4H PRN Constipation Morphine Sulfate 2 mg 07/17/20 22:21 07/23/20 00:02 Morphine 2 Mg/1 Ml Inj IV 2 mg Q4H PRN Administration Pain, Moderate (4-6) Ondansetron HCl 4 mg 07/17/20 22:21 07/20/20 02:21 Ondansetron 4 Mg/2 Ml Inj IV 4 mg Q8H PRN Administration Nausea And Vomiting Sodium Chloride 10 ml 07/17/20 22:01 07/17/20 22:13 Sodium Chloride 0.9% 10 Ml Flush Syringe IV 10 ml PRN PRN Administration LINE FLUSH Sodium Chloride 10 ml 07/18/20 10:00 07/22/20 22:00 Sodium Chloride 0.9% 10 Ml Flush Syringe IV 10 ml BID SHERON Administration Sodium Chloride 10 ml 07/17/20 22:21 07/22/20 05:31 Sodium Chloride 0.9% 10 Ml Flush Syringe IV 10 ml PRN PRN Administration LINE FLUSH Sodium Chloride 50 ml 07/19/20 15:00 07/22/20 21:30 Sodium Chloride 0.9% 50 Ml Ivpb IV 07/23/20 21:01 50 ml Q24HR@2100 SHERON Administration
[2020-07-23] MEDS: dexAMETHasone 4 MG/ML VIAL IV SCH (10:53)
--- NOTE | 2020-07-23 11:15 | Progress Note ---
Assessment and Plan 60 y/o male with chest discomfort, shortness of breath and abnormal CXR 1. Continue steroids for 10 days. 2. Continue Remdesivir. Not a candidate for Convalescent Plasma 3. Please ask patient prone as tolerated during the day and sleep prone at night. Currently doing and tolerating 4. Agree with daily lasix but will need labs to monitor renal function and electrolytes. Needs labs for today. 5. Guarded prognosis to poor now with increasing oxygen requirement. May require intubation and high risk for cardiac arrest. Subjective Date of service: 07/23/20 Interval history: Oxygen requirement is now worse. on HFNC and NRB mask. Visibly dyspnic just at rest. Still on steroids and Remdesivir. No IMCU beds available. Objective Vital Signs - 12hr 07/23/20 07/23/20 07/23/20 00:02 00:17 00:32 Temperature 97.5 F L Pulse Rate 71 Respiratory 20 16 18 Rate Blood Pressure 119/77 O2 Sat by Pulse 89 Oximetry 07/23/20 07/23/20 07/23/20 06:00 06:39 06:41 Temperature 97.9 F 98.9 F Pulse Rate 93 H Respiratory 18 18 Rate Blood Pressure 146/80 137/78 O2 Sat by Pulse 95 97 Oximetry 07/23/20 07/23/20 08:48 08:57 Temperature Pulse Rate Respiratory 20 Rate Blood Pressure O2 Sat by Pulse 100 86 Oximetry CBC and BMP: 07/18/20 04:31 07/22/20 04:31 ABG, PT/INR, D-dimer: PT/INR, D-dimer PT 13.7 Sec. (12.2-14.9) 07/18/20 04:31 INR 1.06 (0.87-1.13) 07/18/20 04:31 D-Dimer 9523.70 ng/mlDDU (0-234) H 07/20/20 08:56 Abnormal lab findings: Abnormal Labs 07/17/20 07/17/20 07/17/20 17:30 17:30 22:48 MCH MCHC 35 H RDW Lymph % (Auto) 10.5 L Lymph # (Auto) 0.7 L Seg Neutrophils % 85.3 H Lymphocytes % (Manual) Seg Neutrophils # Man Lymphocytes # (Manual) D-Dimer 314.21 H Sodium Carbon Dioxide BUN 1 L Glucose 154 H Calcium Ferritin Lactate Dehydrogenase C-Reactive Protein Albumin Coronavirus (PCR) SARS-CoV-2 IgG Ab 07/17/20 07/17/20 07/18/20 22:48 22:48 04:31 MCH 33 H MCHC 35 H RDW 13.1 L Lymph % (Auto) Lymph # (Auto) Seg Neutrophils % Lymphocytes % (Manual) 5.0 L Seg Neutrophils # Man 8.1 H Lymphocytes # (Manual) 0.4 L D-Dimer Sodium Carbon Dioxide BUN Glucose 124 H Calcium Ferritin 889.3 H Lactate Dehydrogenase 832 H C-Reactive Protein 17.70 H Albumin Coronavirus (PCR) SARS-CoV-2 IgG Ab 07/18/20 07/18/20 07/18/20 04:31 08:50 18:48 MCH MCHC RDW Lymph % (Auto) Lymph # (Auto) Seg Neutrophils % Lymphocytes % (Manual) Seg Neutrophils # Man Lymphocytes # (Manual) D-Dimer 275.27 H Sodium Carbon Dioxide 31 H D BUN 23 H Glucose 143 H Calcium Ferritin Lactate Dehydrogenase C-Reactive Protein Albumin Coronavirus (PCR) Positive A SARS-CoV-2 IgG Ab 07/18/20 07/18/20 07/20/20 18:48 18:48 08:56 MCH MCHC RDW Lymph % (Auto) Lymph # (Auto) Seg Neutrophils % Lymphocytes % (Manual) Seg Neutrophils # Man Lymphocytes # (Manual) D-Dimer Sodium Carbon Dioxide BUN 22 H Glucose 219 H Calcium Ferritin 1164.0 H Lactate Dehydrogenase 560 H 739 H C-Reactive Protein 18.00 H 17.50 H Albumin 3.0 L Coronavirus (PCR) SARS-CoV-2 IgG Ab 07/20/20 07/20/20 07/21/20 08:56 08:56 05:24 MCH MCHC RDW Lymph % (Auto) Lymph # (Auto) Seg Neutrophils % Lymphocytes % (Manual) Seg Neutrophils # Man Lymphocytes # (Manual) D-Dimer 9523.70 H Sodium Carbon Dioxide BUN Glucose Calcium Ferritin 1581.0 H Lactate Dehydrogenase C-Reactive Protein Albumin Coronavirus (PCR) SARS-CoV-2 IgG Ab Reactive A 07/22/20 04:31 MCH MCHC RDW Lymph % (Auto) Lymph # (Auto) Seg Neutrophils % Lymphocytes % (Manual) Seg Neutrophils # Man Lymphocytes # (Manual) D-Dimer Sodium 146 H Carbon Dioxide BUN 28 H Glucose 144 H Calcium 8.3 L Ferritin Lactate Dehydrogenase C-Reactive Protein Albumin 3.3 L Coronavirus (PCR) SARS-CoV-2 IgG Ab
[2020-07-23] MEDS: SODIUM CHLORIDE 0.9% 50 ML IVPB IV SCH (21:52)
[2020-07-23] MEDS: REMDESIVIR 100 MG in SODIUM CHLORIDE 0.9% 250ML 250 ML IV SCH (21:52)
[2020-07-23] MEDS: ENOXAPARIN 40 MG/0.4 ML INJ SUB-Q SCH (21:53)
[2020-07-24] MEDS: FUROSEMIDE 40 MG/4 ML INJ IV SCH (05:30)
--- NOTE | 2020-07-24 09:50 | Progress Note ---
Assessment and Plan Assessment and plan: --Acute hypoxic respiratory failure/rapid response Patient has removed the oxygen, and went into severe hypoxemia Code met was called, respiratory be adjusted oxygen settings Patient feels better, updated --Acute hypoxc respiratory failure; on high flow oxygen Current Visit: Yes Status: Acute Plan to address problem: 40 L /100% /O2 sats 95% 07/20/2020 35L/95% /O2 sat 94% 07/21/2020 40 L/100%/91 O2 sats 07/23/20 40 L/100%/97 O2 sats 07/24/2020 Mild improvement, titrate O2 sats to more than 90% Due to the underlying COVID-19 pneumonia. Treat the underlying cause Prone position as tolerated Home O2 evaluation --COVID-19 positive Continue contact and droplet isolation, IV dexamethasone for total 4/9 days IV remdesivir per ID 2/4 Patient is already on high flow oxygen Prone position as tolerated, inflammatory markers Anticoagulation per protocol, and supportive care Patient is critically ill, poor prognosis SARS to Covid IgG antibodies positive, no indication for convalescent --Elevated D-dimers; CTA chest negative for PE, mild pulmonary edema, I will add Lasix 40 mg IV 1 dose now, and daily thereafter lower extremity venous Doppler, negative for DVT -- Pneumonia Current Visit: Yes Status: Acute Plan to address problem: Continue empiric IV antibiotics. Procalcitonin is elevated In view of patient's pneumonia and severe hypoxia Elevated D-dimers will get CTA chest to rule out PE -- DVT prophylaxis Current Visit: Yes Status: Acute Plan to address problem: Patient placed on subcutaneous Lovenox. -- Full code status Current Visit: Yes Status: Acute Plan to address problem: Patient is a full code. Closely monitor the patient and adjust management as needed Follow CTA chest, and inflammatory markers Consults recommendations noted and appreciated Plan of care reviewed with the patient and his nurse 07/20; patient is severely hypoxemic, on high flow oxygen 40 L/100%/O2 sats 95 Elevated D-dimers, patient is severely hypoxemic, will check CTA chest to rule out PE Also consider lower extremity venous Doppler to rule out DVT 07/21: Patient remains on high flow oxygen however mild improvement from 40 L to 35 l Tolerating prone position, continue steroids remdesivir CTA chest negative for PE, lower extremity venous Doppler negative for DVT Consults recommendations noted and appreciated Poor prognosis, patient is aware 07/22/2020; patient feels slightly better remains on high flow oxygen however lower than yesterday 35 L/95% /O2 sat 94% 07/21/2020 advised the patient to rest in prone position as tolerated Home oxygen evaluation 07/23/2020; remains on high flow oxygen, continue steroids remdesivir, prone position and comfort care Patient is critically ill with very poor prognosis and prolonged hypoxemia on high flow oxygen Plan of care reviewed with the patient and his nurse 07/24/2020; patient was severely hypoxemic rapid response called oxygen settings adjusted patient is currently better, requiring high flow oxygen right from the day he was admitted, poor prognosis, discussed with patient's History Interval history: Patient seen and examined at the bedside Isolation precautions PPE protocol strictly followed Patient with severe COVID-19 pneumonia on high flow oxygen Patient removed oxygen and became severely hypoxemic code met was called Resuscitation team arrived and respiratory therapist adjusted supplemental oxygen supply Patient became alert awake oriented and vital signs were stable I called patient's and informed of this event Answered all her questions Hospitalist Physical - Constitutional Vitals: Temp Pulse Resp BP Pulse Ox 97.7 F 75 20 114/66 96 07/23/20 22:32 07/24/20 06:21 07/24/20 06:21 07/24/20 06:21 07/24/20 06:21 General appearance: Present: mild distress, well-nourished, other (Hypoxemic on high flow oxygen) HEART Score - HEART Score Troponin: Troponin T < 0.010 ng/mL (0.00-0.029) 07/17/20 22:48 Results - Labs CBC & Chem 7: 07/18/20 04:31 07/24/20 13:26 Labs: Laboratory Last Values WBC 8.8 K/mm3 (4.5-11.0) 07/18/20 04:31 RBC 4.36 M/mm3 (3.65-5.03) 07/18/20 04:31 Hgb 14.2 gm/dl (11.8-15.2) 07/18/20 04:31 Hct 40.7 % (35.5-45.6) 07/18/20 04:31 MCV 93 fl (84-94) 07/18/20 04:31 MCH 33 pg (28-32) H 07/18/20 04:31 MCHC 35 % (32-34) H 07/18/20 04:31 RDW 13.1 % (13.2-15.2) L 07/18/20 04:31 Plt Count 149 K/mm3 (140-440) 07/18/20 04:31 Lymph % (Auto) 10.5 % (13.4-35.0) L 07/17/20 17:30 [place] % (Auto) 4.0 % (0.0-7.3) 07/17/20 17:30 Eos % (Auto) 0.0 % (0.0-4.3) 07/17/20 17:30 Baso % (Auto) 0.2 % (0.0-1.8) 07/17/20 17:30 Lymph # (Auto) 0.7 K/mm3 (1.2-5.4) L 07/17/20 17:30 [place] # (Auto) 0.3 K/mm3 (0.0-0.8) 07/17/20 17:30 Eos # (Auto) 0.0 K/mm3 (0.0-0.4) 07/17/20 17:30 Baso # (Auto) 0.0 K/mm3 (0.0-0.1) 07/17/20 17:30 Add Manual Diff Complete 07/18/20 04:31 Total Counted 100 07/18/20 04:31 Seg Neutrophils % Satellite [employer] Repairer 07/18/20 04:31 Lymphocytes % (Manual) 5.0 % (13.4-35.0) L 07/18/20 04:31 Monocytes % (Manual) 3.0 % (0.0-7.3) 07/18/20 04:31 Nucleated RBC % Not Reportable 07/18/20 04:31 Seg Neutrophils # 5.4 K/mm3 (1.8-7.7) 07/17/20 17:30 Seg Neutrophils # Man 8.1 K/mm3 (1.8-7.7) H 07/18/20 04:31 Band Neutrophils # 0.0 K/mm3 07/18/20 04:31 Lymphocytes # (Manual) 0.4 K/mm3 (1.2-5.4) L 07/18/20 04:31 Abs React Lymphs (Man) 0.0 K/mm3 07/18/20 04:31 Monocytes # (Manual) 0.3 K/mm3 (0.0-0.8) 07/18/20 04:31 Eosinophils # (Manual) 0.0 K/mm3 (0.0-0.4) 07/18/20 04:31 Basophils # (Manual) 0.0 K/mm3 (0.0-0.1) 07/18/20 04:31 Metamyelocytes # 0.0 K/mm3 07/18/20 04:31 Myelocytes # 0.0 K/mm3 07/18/20 04:31 Promyelocytes # 0.0 K/mm3 07/18/20 04:31 Blast Cells # 0.0 K/mm3 07/18/20 04:31 WBC Morphology Not Reportable 07/18/20 04:31 Hypersegmented Neuts Not Reportable 07/18/20 04:31 Hyposegmented Neuts Not Reportable 07/18/20 04:31 Hypogranular Neuts Not Reportable 07/18/20 04:31 Smudge Cells Not Reportable 07/18/20 04:31 Toxic Granulation Not Reportable 07/18/20 04:31 Toxic Vacuolation Not Reportable 07/18/20 04:31 Dohle Bodies Not Reportable 07/18/20 04:31 Pelger-Huet Anomaly Not Reportable 07/18/20 04:31 Cheri Rods Not Reportable 07/18/20 04:31 Platelet Estimate Consistent w auto 07/18/20 04:31 Clumped Platelets Not Reportable 07/18/20 04:31 Plt Clumps, EDTA Not Reportable 07/18/20 04:31 Large Platelets Not Reportable 07/18/20 04:31 Giant Platelets Not Reportable 07/18/20 04:31 Platelet Satelliting Not Reportable 07/18/20 04:31 Plt Morphology Comment Not Reportable 07/18/20 04:31 RBC Morphology Not Reportable 07/18/20 04:31 Dimorphic RBCs Not Reportable 07/18/20 04:31 Polychromasia Not Reportable 07/18/20 04:31 Hypochromasia Not Reportable 07/18/20 04:31 Poikilocytosis Not Reportable 07/18/20 04:31 Anisocytosis 1+ 07/18/20 04:31 Microcytosis Not Reportable 07/18/20 04:31 Macrocytosis Not Reportable 07/18/20 04:31 Spherocytes Not Reportable 07/18/20 04:31 Pappenheimer Bodies Not Reportable 07/18/20 04:31 Sickle Cells Not Reportable 07/18/20 04:31 Target Cells Not Reportable 07/18/20 04:31 Tear Drop Cells Not Reportable 07/18/20 04:31 Ovalocytes Not Reportable 07/18/20 04:31 Helmet Cells Not Reportable 07/18/20 04:31 [place] Bodies Not Reportable 07/18/20 04:31 [place] Rings Not Reportable 07/18/20 04:31 Busy Cells Not Reportable 07/18/20 04:31 Bite Cells Not Reportable 07/18/20 04:31 Crenated Cell Not Reportable 07/18/20 04:31 Elliptocytes Not Reportable 07/18/20 04:31 Acanthocytes (Spur) Not Reportable 07/18/20 04:31 Rouleaux Not Reportable 07/18/20 04:31 Hemoglobin C Crystals Not Reportable 07/18/20 04:31 Schistocytes Not Reportable 07/18/20 04:31 Malaria parasites Not Reportable 07/18/20 04:31 Wilfredo Bodies Not Reportable 07/18/20 04:31 Hem Pathologist Commnt No 07/18/20 04:31 PT 13.7 Sec. (12.2-14.9) 07/18/20 04:31 INR 1.06 (0.87-1.13) 07/18/20 04:31 D-Dimer 9523.70 ng/mlDDU (0-234) H 07/20/20 08:56 Sodium 146 mmol/L (137-145) H 07/22/20 04:31 Potassium 4.2 mmol/L (3.6-5.0) 07/22/20 04:31 Chloride 103.6 mmol/L (98-107) 07/22/20 04:31 Carbon Dioxide 28 mmol/L (22-30) 07/22/20 04:31 Anion Gap 19 mmol/L 07/22/20 04:31 BUN 28 mg/dL (9-20) H 07/22/20 04:31 Creatinine 0.8 mg/dL (0.8-1.3) 07/22/20 04:31 Estimated GFR > 60 ml/min 07/22/20 04:31 BUN/Creatinine Ratio 35 % 07/22/20 04:31 Glucose 144 mg/dL (75-100) H 07/22/20 04:31 Calcium 8.3 mg/dL (8.4-10.2) L 07/22/20 04:31 Ferritin 1581.0 ng/mL (30.0-300.0) H 07/20/20 08:56 Total Bilirubin 0.20 mg/dL (0.1-1.2) 07/22/20 04:31 Direct Bilirubin < 0.2 mg/dL (0-0.2) 07/22/20 04:31 Indirect Bilirubin 0.0 mg/dL 07/22/20 04:31 AST 24 units/L (5-40) 07/22/20 04:31 ALT 15 units/L (7-56) 07/22/20 04:31 Alkaline Phosphatase 95 units/L (35-129) 07/22/20 04:31 Lactate Dehydrogenase 739 units/L (91-180) H 07/20/20 08:56 Troponin T < 0.010 ng/mL (0.00-0.029) 07/17/20 22:48 C-Reactive Protein 17.50 mg/dL (0.00-1.30) H 07/20/20 08:56 NT-Pro-B Natriuret Pep 290.3 pg/mL (0-900) 07/18/20 16:33 Total Protein 7.3 g/dL (6.3-8.2) 07/22/20 04:31 Albumin 3.3 g/dL (3.9-5) L 07/22/20 04:31 Albumin/Globulin Ratio 0.8 % 07/22/20 04:31 Procalcitonin 0.94 ng/mL (<0.15) 07/17/20 22:48 Coronavirus (PCR) Positive (Negative) A 07/18/20 08:50 SARS-CoV-2 IgG Ab Reactive (NonReactive) A 07/21/20 05:24 [place]/IV: Voiding Method Urinal IV Catheter Type [Left INT / Saline Lock Antecubital] IV Catheter Type [Right Distal INT / Saline Lock Port Hand] Active Medications - Current Medications Current Medications: Generic Name Dose Route Start Last Admin Trade Name Freq PRN Reason Stop Dose Admin Acetaminophen 650 mg 07/17/20 22:21 07/20/20 22:36 Acetaminophen 325 Mg Tab PO 650 mg Q4H PRN Administration Pain MILD(1-3)/Fever >100.5/AWAD Albuterol 2.5 mg 07/18/20 16:14 07/18/20 19:45 Albuterol 2.5 Mg/3 Ml Nebu IH 2.5 mg Q4HRT PRN Administration Shortness Of Breath Dexamethasone 6 mg 07/18/20 10:00 07/23/20 10:53 Dexamethasone 4 Mg/Ml Vial IV 07/26/20 10:01 6 mg Q24HR SHERON Administration Enoxaparin Sodium 40 mg 07/18/20 22:00 07/23/20 21:53 Enoxaparin 40 Mg/0.4 Ml Inj SUB-Q 40 mg QDAY@2200 [facility] Administration Protocol Furosemide 40 mg 07/21/20 06:00 07/24/20 05:30 Furosemide 40 Mg/4 Ml Inj IV 40 mg DAILY@0600 [facility] Administration Magnesium Hydroxide 30 ml 07/17/20 22:21 Magnesium Hydroxide (Mom) Oral Liqd Udc PO Q4H PRN Constipation Morphine Sulfate 2 mg 07/17/20 22:21 07/23/20 00:02 Morphine 2 Mg/1 Ml Inj IV 2 mg Q4H PRN Administration Pain, Moderate (4-6) Ondansetron HCl 4 mg 07/17/20 22:21 07/20/20 02:21 Ondansetron 4 Mg/2 Ml Inj IV 4 mg Q8H PRN Administration Nausea And Vomiting Sodium Chloride 10 ml 07/17/20 22:01 07/17/20 22:13 Sodium Chloride 0.9% 10 Ml Flush Syringe IV 10 ml PRN PRN Administration LINE FLUSH Sodium Chloride 10 ml 07/18/20 10:00 07/23/20 21:52 Sodium Chloride 0.9% 10 Ml Flush Syringe IV 10 ml BID SHERON Administration Sodium Chloride 10 ml 07/17/20 22:21 07/22/20 05:31 Sodium Chloride 0.9% 10 Ml Flush Syringe IV 10 ml PRN PRN Administration LINE FLUSH Nutrition/Malnutrition Assess - Dietary Evaluation Nutrition/Malnutrition Findings: Nutrition Notes Start: 07/23/20 13:19 Freq: Status: Active Protocol: Document 07/23/20 13:19 PLACIDO (Rec: 07/23/20 13:25 PLACIDO [id number]) Nutrition Notes Need for Assessment generated from: LOS Initial or Follow up Assessment Other Pertinent Diagnosis COVID-19 (+), pneu Current Diet Regular Labs/Tests Na 146 BUN 28 Pertinent Medications Decadron, Lasix Height 5 ft 11 in Weight 95.4 kg [place] Body Weight (kg) 78.18 BMI 29.3 Weight Status Overweight Subjective/Other Information Pt screened for LOS. PO intake records show 25% of meals consumed on 07/21 and 07/22; no other intakes recorded. Pt on high-flow O2. Percent of energy/protein needs met: 27% energy 29% pro Burn Absent Trauma Absent Current % PO Poor (25-49%) Minimum of two criteria No #1 Nutrition Diagnosis Inadequate oral intake Etiology COVID-19 (+) As Evidenced by Signs and Symptoms pt consuming <50% of meals Is patient on ventilator? No Is Patient Ambulatory and/or Out of Bed No REE-([place]. Jeor-confined to bed) 8570.86 Calculation Used for Recommendations [place] Jeor Additional Notes Pro needs 0.8-1g/k-95g/ day Fluid needs 1ml/kcal Nutrition Intervention Change Diet Order: Continue current diet order Add Supplement/Snack (indicate name/kcal Ensure High Protein /protein ) Provides kCal: 320 Provides Protein (gm) 32 Goal #1 PO intake of meals plus ONS to meet at least 75% energy and pro needs Anticipated Discharge Needs: None identified at this time Follow-Up By: 07/26/20 Additional Comments F/U: intakes (meals/ONS), wt
--- NOTE | 2020-07-24 09:51 | Event Note ---
Date: 07/24/20 Patient was severely hypoxemic because he removed the oxygen, rapid response was called, respiratory therapy adjusted oxygen therapy O2 sats more than 92%, patient is alert awake oriented, no other complaints Called patient's Ms. Brooks and discussed patient's condition tests and reports and treatment plan Answered all her questions
--- NOTE | 2020-07-24 09:52 | Event Note ---
Date: 07/24/20 I called patient's Ms.Awa Suarez at [phone] and updated patient's condition, severe COVID-19 pneumonia requiring high flow oxygen I also informed that patient remove the oxygen and with went into severe hypoxemia requiring rapid response call Respiratory therapist has adjusted oxygen settings and patient is now saturating above 92 I also informed the patient's at the tests and reports and the treatment plan She had many questions answered all of them
[2020-07-24] MEDS: dexAMETHasone 4 MG/ML VIAL IV SCH (13:10)
[2020-07-24 14:09] LABS: BUN/Creatinine Ratio 29; Blood Urea Nitrogen 26 mg/dL (9-20); Calcium 8.7 mg/dL (8.4-10.2); Hemolysis Index 3
--- NOTE | 2020-07-24 14:12 | Progress Note ---
Assessment and Plan 60 y/o male with chest discomfort, shortness of breath and abnormal CXR 1. Continue steroids for 10 days. 2. Continue Remdesivir. Not a candidate for Convalescent Plasma 3. Please ask patient prone as tolerated during the day and sleep prone at night. Currently doing and tolerating 4. Agree with daily lasix but will need labs to monitor renal function and electrolytes. Needs labs for today. 5. Guarded prognosis to poor now with increasing oxygen requirement. May require intubation and high risk for cardiac arrest. Subjective Date of service: 07/24/20 Interval history: Patient had a MET called secondary to hypoxemia. Still on HFNC and NRB. Patient apparently keeps pulling off mask. Objective Vital Signs - 12hr 07/24/20 07/24/20 07/24/20 06:21 11:48 12:11 Temperature 97.8 F Pulse Rate 75 88 Respiratory 20 22 Rate Blood Pressure 108/63 Blood Pressure 114/66 [Left] O2 Sat by Pulse 96 89 90 Oximetry CBC and BMP: 07/18/20 04:31 07/24/20 13:26 ABG, PT/INR, D-dimer: PT/INR, D-dimer PT 13.7 Sec. (12.2-14.9) 07/18/20 04:31 INR 1.06 (0.87-1.13) 07/18/20 04:31 D-Dimer 9523.70 ng/mlDDU (0-234) H 07/20/20 08:56 Abnormal lab findings: Abnormal Labs 07/17/20 07/17/20 07/17/20 17:30 17:30 22:48 MCH MCHC 35 H RDW Lymph % (Auto) 10.5 L Lymph # (Auto) 0.7 L Seg Neutrophils % 85.3 H Lymphocytes % (Manual) Seg Neutrophils # Man Lymphocytes # (Manual) D-Dimer 314.21 H Sodium Carbon Dioxide BUN 1 L Glucose 154 H Calcium Ferritin Lactate Dehydrogenase C-Reactive Protein Albumin Coronavirus (PCR) SARS-CoV-2 IgG Ab 07/17/20 07/17/20 07/18/20 22:48 22:48 04:31 MCH 33 H MCHC 35 H RDW 13.1 L Lymph % (Auto) Lymph # (Auto) Seg Neutrophils % Lymphocytes % (Manual) 5.0 L Seg Neutrophils # Man 8.1 H Lymphocytes # (Manual) 0.4 L D-Dimer Sodium Carbon Dioxide BUN Glucose 124 H Calcium Ferritin 889.3 H Lactate Dehydrogenase 832 H C-Reactive Protein 17.70 H Albumin Coronavirus (PCR) SARS-CoV-2 IgG Ab 07/18/20 07/18/20 07/18/20 04:31 08:50 18:48 MCH MCHC RDW Lymph % (Auto) Lymph # (Auto) Seg Neutrophils % Lymphocytes % (Manual) Seg Neutrophils # Man Lymphocytes # (Manual) D-Dimer 275.27 H Sodium Carbon Dioxide 31 H D BUN 23 H Glucose 143 H Calcium Ferritin Lactate Dehydrogenase C-Reactive Protein Albumin Coronavirus (PCR) Positive A SARS-CoV-2 IgG Ab 07/18/20 07/18/20 07/20/20 18:48 18:48 08:56 MCH MCHC RDW Lymph % (Auto) Lymph # (Auto) Seg Neutrophils % Lymphocytes % (Manual) Seg Neutrophils # Man Lymphocytes # (Manual) D-Dimer Sodium Carbon Dioxide BUN 22 H Glucose 219 H Calcium Ferritin 1164.0 H Lactate Dehydrogenase 560 H 739 H C-Reactive Protein 18.00 H 17.50 H Albumin 3.0 L Coronavirus (PCR) SARS-CoV-2 IgG Ab 07/20/20 07/20/20 07/21/20 08:56 08:56 05:24 MCH MCHC RDW Lymph % (Auto) Lymph # (Auto) Seg Neutrophils % Lymphocytes % (Manual) Seg Neutrophils # Man Lymphocytes # (Manual) D-Dimer 9523.70 H Sodium Carbon Dioxide BUN Glucose Calcium Ferritin 1581.0 H Lactate Dehydrogenase C-Reactive Protein Albumin Coronavirus (PCR) SARS-CoV-2 IgG Ab Reactive A 07/22/20 07/24/20 04:31 13:26 MCH MCHC RDW Lymph % (Auto) Lymph # (Auto) Seg Neutrophils % Lymphocytes % (Manual) Seg Neutrophils # Man Lymphocytes # (Manual) D-Dimer Sodium 146 H Carbon Dioxide 32 H BUN 28 H 26 H Glucose 144 H 116 H Calcium 8.3 L Ferritin Lactate Dehydrogenase C-Reactive Protein Albumin 3.3 L Coronavirus (PCR) SARS-CoV-2 IgG Ab
--- NOTE | 2020-07-24 16:12 | Event Note ---
Date: 07/24/20 I called patient's physician family friend. Dr. Flower at [phone] to discuss about patient's condition As requested by patient's , I could not reach him as he did not brain picker the phone, voicemail is full Unable to leave any message to call back. Informed patient's nurse of the above attempt to reach Dr. Flower.
--- NOTE | 2020-07-24 17:00 | Event Note ---
Date: 07/24/20 Patient's family friend called through the nibbler operator, and I discussed in detail patient's condition, tests and reports, consultants recommendations Treatment plan, patient's progress and prognosis with him, he had numerous questions, I answered all of them. He is very appreciative and thankful Encouraged him to call back with any new questions or concerns.
[2020-07-24] MEDS: ENOXAPARIN 40 MG/0.4 ML INJ SUB-Q SCH (23:04)
[2020-07-25] MEDS: FUROSEMIDE 40 MG/4 ML INJ IV SCH (05:36)
[2020-07-25] MEDS: dexAMETHasone 4 MG/ML VIAL IV SCH ×2 (08:32→12:16)
--- NOTE | 2020-07-25 11:10 | Progress Note ---
Assessment and Plan Assessment and plan: SARS Covid 2 IgG antibodies positive; no indication for convalescent plasma I spoke with patient's spouse Ms. Cecilia Suarez and a family friend who is a physician patient's condition treatment plan tests and reports Consultants recommendations and prognosis, I answered all their questions we will closely monitor the patient and adjust management as needed. I also discussed with patient's nurse as well as nursing packaging supervisor Critical care time 35 minutes Original Note: Assessment and Plan Assessment and plan: --Acute hypoxic respiratory failure/rapid response Patient has removed the oxygen, and went into severe hypoxemia Code met was called, respiratory be adjusted oxygen settings Patient feels better, updated --Acute hypoxc respiratory failure; on high flow oxygen Current Visit: Yes Status: Acute Plan to address problem: 40 L /100% /O2 sats 95% 07/20/2020 35L/95% /O2 sat 94% 07/21/2020 40 L/100%/91 O2 sats 07/23/20 40 L/100%/97 O2 sats 07/24/2020 Mild improvement, titrate O2 sats to more than 90% Due to the underlying COVID-19 pneumonia. Treat the underlying cause Prone position as tolerated Home O2 evaluation --COVID-19 positive Continue contact and droplet isolation, IV dexamethasone for total 4/9 days IV remdesivir per ID 08/25 Patient is already on high flow oxygen Prone position as tolerated, inflammatory markers Anticoagulation per protocol, and supportive care Patient is critically ill, poor prognosis SARS to Covid IgG antibodies positive, no indication for convalescent --Elevated D-dimers; CTA chest negative for PE, mild pulmonary edema, I will add Lasix 40 mg IV 1 dose now, and daily thereafter lower extremity venous Doppler, negative for DVT -- Pneumonia Current Visit: Yes Status: Acute Plan to address problem: Continue empiric IV antibiotics. Procalcitonin is elevated In view of patient's pneumonia and severe hypoxia Elevated D-dimers will get CTA chest to rule out PE -- DVT prophylaxis Current Visit: Yes Status: Acute Plan to address problem: Patient placed on subcutaneous Lovenox. -- Full code status Current Visit: Yes Status: Acute Plan to address problem: Patient is a full code. Closely monitor the patient and adjust management as needed Follow CTA chest, and inflammatory markers Consults recommendations noted and appreciated Plan of care reviewed with the patient and his nurse 07/20; patient is severely hypoxemic, on high flow oxygen 40 L/100%/O2 sats 95 Elevated D-dimers, patient is severely hypoxemic, will check CTA chest to rule out PE Also consider lower extremity venous Doppler to rule out DVT 07/21: Patient remains on high flow oxygen however mild improvement from 40 L to 35 l Tolerating prone position, continue steroids remdesivir CTA chest negative for PE, lower extremity venous Doppler negative for DVT Consults recommendations noted and appreciated Poor prognosis, patient is aware 07/22/2020; patient feels slightly better remains on high flow oxygen however lower than yesterday 35 L/95% /O2 sat 94% 07/21/2020 advised the patient to rest in prone position as tolerated Home oxygen evaluation 07/23/2020; remains on high flow oxygen, continue steroids remdesivir, prone position and comfort care Patient is critically ill with very poor prognosis and prolonged hypoxemia on high flow oxygen Plan of care reviewed with the patient and his nurse 07/24/2020; patient was severely hypoxemic rapid response called oxygen settings adjusted patient is currently better, requiring high flow oxygen right from the day he was admitted, poor prognosis, discussed with patient's 07/25/2020; patient remains on high flow oxygen in mild distress, overall prognosis poor I discussed with , and family friend physician extensively yesterday Poor prognosis continue current management History Interval history: Patient seen and examined at the bedside Isolation precautions PPE protocol strictly followed Patient with severe COVID-19 pneumonia on high flow oxygen Patient is in mild distress Hospitalist Physical - Physical exam Narrative exam: I have seen the patient in the room from a distance patient feels slightly better Mild distress On high flow oxygen Vital signs noted - Constitutional Vitals: Temp Pulse Resp BP Pulse Ox 97.6 F 94 H 18 115/57 96 07/25/20 04:02 07/25/20 11:06 07/25/20 11:06 07/25/20 11:06 07/25/20 11:06 General appearance: Present: mild distress, well-nourished, other (Hypoxemic on high flow oxygen) - EENT ENT: other (Physical examination not performed to decrease transmission of the disease) - Neck Neck: Present: other (PE not performed to decrease transmission of the disease) - Respiratory Respiratory effort: other (PE not performed to decrease transmission of the disease) - Extremities Extremity abnormal: other (PE not performed to decrease transmission of the disease) - Abdominal General gastrointestinal: other (PE not performed to decrease transmission of t he disease) - Psychiatric Psychiatric: other (PE not performed to decrease transmission of the disease) HEART Score - HEART Score Troponin: Troponin T < 0.010 ng/mL (0.00-0.029) 07/17/20 22:48 Results - Labs CBC & Chem 7: 07/18/20 04:31 07/24/20 13:26 Labs: Laboratory Last Values WBC 8.8 K/mm3 (4.5-11.0) 07/18/20 04:31 RBC 4.36 M/mm3 (3.65-5.03) 07/18/20 04:31 Hgb 14.2 gm/dl (11.8-15.2) 07/18/20 04:31 Hct 40.7 % (35.5-45.6) 07/18/20 04:31 MCV 93 fl (84-94) 07/18/20 04:31 MCH 33 pg (28-32) H 07/18/20 04:31 MCHC 35 % (32-34) H 07/18/20 04:31 RDW 13.1 % (13.2-15.2) L 07/18/20 04:31 Plt Count 149 K/mm3 (140-440) 07/18/20 04:31 Lymph % (Auto) 10.5 % (13.4-35.0) L 07/17/20 17:30 [place] % (Auto) 4.0 % (0.0-7.3) 07/17/20 17:30 Eos % (Auto) 0.0 % (0.0-4.3) 07/17/20 17:30 Baso % (Auto) 0.2 % (0.0-1.8) 07/17/20 17:30 Lymph # (Auto) 0.7 K/mm3 (1.2-5.4) L 07/17/20 17:30 [place] # (Auto) 0.3 K/mm3 (0.0-0.8) 07/17/20 17:30 Eos # (Auto) 0.0 K/mm3 (0.0-0.4) 07/17/20 17:30 Baso # (Auto) 0.0 K/mm3 (0.0-0.1) 07/17/20 17:30 Add Manual Diff Complete 07/18/20 04:31 Total Counted 100 07/18/20 04:31 Seg Neutrophils % [employer] Operator 07/18/20 04:31 Lymphocytes % (Manual) 5.0 % (13.4-35.0) L 07/18/20 04:31 Monocytes % (Manual) 3.0 % (0.0-7.3) 07/18/20 04:31 Nucleated RBC % Not Reportable 07/18/20 04:31 Seg Neutrophils # 5.4 K/mm3 (1.8-7.7) 07/17/20 17:30 Seg Neutrophils # Man 8.1 K/mm3 (1.8-7.7) H 07/18/20 04:31 Band Neutrophils # 0.0 K/mm3 07/18/20 04:31 Lymphocytes # (Manual) 0.4 K/mm3 (1.2-5.4) L 07/18/20 04:31 Abs React Lymphs (Man) 0.0 K/mm3 07/18/20 04:31 Monocytes # (Manual) 0.3 K/mm3 (0.0-0.8) 07/18/20 04:31 Eosinophils # (Manual) 0.0 K/mm3 (0.0-0.4) 07/18/20 04:31 Basophils # (Manual) 0.0 K/mm3 (0.0-0.1) 07/18/20 04:31 Metamyelocytes # 0.0 K/mm3 07/18/20 04:31 Myelocytes # 0.0 K/mm3 07/18/20 04:31 Promyelocytes # 0.0 K/mm3 07/18/20 04:31 Blast Cells # 0.0 K/mm3 07/18/20 04:31 WBC Morphology Not Reportable 07/18/20 04:31 Hypersegmented Neuts Not Reportable 07/18/20 04:31 Hyposegmented Neuts Not Reportable 07/18/20 04:31 Hypogranular Neuts Not Reportable 07/18/20 04:31 Smudge Cells Not Reportable 07/18/20 04:31 Toxic Granulation Not Reportable 07/18/20 04:31 Toxic Vacuolation Not Reportable 07/18/20 04:31 Dohle Bodies Not Reportable 07/18/20 04:31 Pelger-Huet Anomaly Not Reportable 07/18/20 04:31 Cheri Rods Not Reportable 07/18/20 04:31 Platelet Estimate Consistent w auto 07/18/20 04:31 Clumped Platelets Not Reportable 07/18/20 04:31 Plt Clumps, EDTA Not Reportable 07/18/20 04:31 Large Platelets Not Reportable 07/18/20 04:31 Giant Platelets Not Reportable 07/18/20 04:31 Platelet Satelliting Not Reportable 07/18/20 04:31 Plt Morphology Comment Not Reportable 07/18/20 04:31 RBC Morphology Not Reportable 07/18/20 04:31 Dimorphic RBCs Not Reportable 07/18/20 04:31 Polychromasia Not Reportable 07/18/20 04:31 Hypochromasia Not Reportable 07/18/20 04:31 Poikilocytosis Not Reportable 07/18/20 04:31 Anisocytosis 1+ 07/18/20 04:31 Microcytosis Not Reportable 07/18/20 04:31 Macrocytosis Not Reportable 07/18/20 04:31 Spherocytes Not Reportable 07/18/20 04:31 Pappenheimer Bodies Not Reportable 07/18/20 04:31 Sickle Cells Not Reportable 07/18/20 04:31 Target Cells Not Reportable 07/18/20 04:31 Tear Drop Cells Not Reportable 07/18/20 04:31 Ovalocytes Not Reportable 07/18/20 04:31 Helmet Cells Not Reportable 07/18/20 04:31 Siu-Volant Bodies Not Reportable 07/18/20 04:31 [place] Rings Not Reportable 07/18/20 04:31 [place] Cells Not Reportable 07/18/20 04:31 Bite Cells Not Reportable 07/18/20 04:31 Crenated Cell Not Reportable 07/18/20 04:31 Elliptocytes Not Reportable 07/18/20 04:31 Acanthocytes (Spur) Not Reportable 07/18/20 04:31 Rouleaux Not Reportable 07/18/20 04:31 Hemoglobin C Crystals Not Reportable 07/18/20 04:31 Schistocytes Not Reportable 07/18/20 04:31 Malaria parasites Not Reportable 07/18/20 04:31 Wilfredo Bodies Not Reportable 07/18/20 04:31 Hem Pathologist Commnt No 07/18/20 04:31 PT 13.7 Sec. (12.2-14.9) 07/18/20 04:31 INR 1.06 (0.87-1.13) 07/18/20 04:31 D-Dimer 9523.70 ng/mlDDU (0-234) H 07/20/20 08:56 Sodium 144 mmol/L (137-145) 07/24/20 13:26 Potassium 4.4 mmol/L (3.6-5.0) 07/24/20 13:26 Chloride 101.8 mmol/L (98-107) 07/24/20 13:26 Carbon Dioxide 32 mmol/L (22-30) H 07/24/20 13:26 Anion Gap 15 mmol/L 07/24/20 13:26 BUN 26 mg/dL (9-20) H 07/24/20 13:26 Creatinine 0.9 mg/dL (0.8-1.3) 07/24/20 13:26 Estimated GFR > 60 ml/min 07/24/20 13:26 BUN/Creatinine Ratio 29 % 07/24/20 13:26 Glucose 116 mg/dL (75-100) H 07/24/20 13:26 Calcium 8.7 mg/dL (8.4-10.2) 07/24/20 13:26 Ferritin 1581.0 ng/mL (30.0-300.0) H 07/20/20 08:56 Total Bilirubin 0.20 mg/dL (0.1-1.2) 07/22/20 04:31 Direct Bilirubin < 0.2 mg/dL (0-0.2) 07/22/20 04:31 Indirect Bilirubin 0.0 mg/dL 07/22/20 04:31 AST 24 units/L (5-40) 07/22/20 04:31 ALT 15 units/L (7-56) 07/22/20 04:31 Alkaline Phosphatase 95 units/L (35-129) 07/22/20 04:31 Lactate Dehydrogenase 739 units/L (91-180) H 07/20/20 08:56 Troponin T < 0.010 ng/mL (0.00-0.029) 07/17/20 22:48 C-Reactive Protein 17.50 mg/dL (0.00-1.30) H 07/20/20 08:56 NT-Pro-B Natriuret Pep 290.3 pg/mL (0-900) 07/18/20 16:33 Total Protein 7.3 g/dL (6.3-8.2) 07/22/20 04:31 Albumin 3.3 g/dL (3.9-5) L 07/22/20 04:31 Albumin/Globulin Ratio 0.8 % 07/22/20 04:31 Procalcitonin 0.94 ng/mL (<0.15) 07/17/20 22:48 Coronavirus (PCR) Positive (Negative) A 07/18/20 08:50 SARS-CoV-2 IgG Ab Reactive (NonReactive) A 07/21/20 05:24 [place]rera/IV: Voiding Method Condom Catheter IV Catheter Type [Left INT / Saline Lock Antecubital] IV Catheter Type [Right Distal INT / Saline Lock Port Hand] Active Medications - Current Medications Current Medications: Generic Name Dose Route Start Last Admin Trade Name Freq PRN Reason Stop Dose Admin Acetaminophen 650 mg 07/17/20 22:21 07/20/20 22:36 Acetaminophen 325 Mg Tab PO 650 mg Q4H PRN Administration Pain MILD(1-3)/Fever >100.5/AWAD Albuterol 2.5 mg 07/18/20 16:14 07/18/20 19:45 Albuterol 2.5 Mg/3 Ml Nebu IH 2.5 mg Q4HRT PRN Administration Shortness Of Breath Dexamethasone 6 mg 07/18/20 10:00 07/25/20 08:32 Dexamethasone 4 Mg/Ml Vial IV 07/26/20 10:01 6 mg Q24HR SHERON Administration Enoxaparin Sodium 40 mg 07/18/20 22:00 07/24/20 23:04 Enoxaparin 40 Mg/0.4 Ml Inj SUB-Q 40 mg QDAY@2200 SHERON Administration Protocol Furosemide 40 mg 07/21/20 06:00 07/25/20 05:36 Furosemide 40 Mg/4 Ml Inj IV 40 mg DAILY@0600 [facility] Administration Magnesium Hydroxide 30 ml 07/17/20 22:21 Magnesium Hydroxide (Mom) Oral Liqd Udc PO Q4H PRN Constipation Morphine Sulfate 2 mg 07/17/20 22:21 07/23/20 00:02 Morphine 2 Mg/1 Ml Inj IV 2 mg Q4H PRN Administration Pain, Moderate (4-6) Ondansetron HCl 4 mg 07/17/20 22:21 07/20/20 02:21 Ondansetron 4 Mg/2 Ml Inj IV 4 mg Q8H PRN Administration Nausea And Vomiting Sodium Chloride 10 ml 07/17/20 22:01 07/17/20 22:13 Sodium Chloride 0.9% 10 Ml Flush Syringe IV 10 ml PRN PRN Administration LINE FLUSH Sodium Chloride 10 ml 07/18/20 10:00 07/25/20 08:32 Sodium Chloride 0.9% 10 Ml Flush Syringe IV 10 ml BID SHERON Administration Sodium Chloride 10 ml 07/17/20 22:21 07/22/20 05:31 Sodium Chloride 0.9% 10 Ml Flush Syringe IV 10 ml PRN PRN Administration LINE FLUSH Nutrition/Malnutrition Assess - Dietary Evaluation Nutrition/Malnutrition Findings: Nutrition Notes Start: 07/23/20 13:19 Freq: Status: Active Protocol: Document 07/23/20 13:19 [facility] (Rec: 07/23/20 13:25 [facility] [id number][facility] Nutrition Notes Need for Assessment generated from: LOS Initial or Follow up Assessment Other Pertinent Diagnosis COVID-19 (+), pneu Current Diet Regular Labs/Tests Na 146 BUN 28 Pertinent Medications Decadron, Lasix Height 5 ft 11 in Weight 95.4 kg [place] Body Weight (kg) 78.18 BMI 29.3 Weight Status Overweight Subjective/Other Information Pt screened for LOS. PO intake records show 25% of meals consumed on 07/21 and 07/22; no other intakes recorded. Pt on high-flow O2. Percent of energy/protein needs met: 27% energy 29% pro Burn Absent Trauma Absent Current % PO Poor (25-49%) Minimum of two criteria No #1 Nutrition Diagnosis Inadequate oral intake Etiology COVID-19 (+) As Evidenced by Signs and Symptoms pt consuming <50% of meals Is patient on ventilator? No Is Patient Ambulatory and/or Out of Bed No REE-([facility]-confined to bed) [phone] Calculation Used for Recommendations [facility] Additional Notes Pro needs 0.8-1g/k-95g/ day Fluid needs 1ml/kcal Nutrition Intervention Change Diet Order: Continue current diet order Add Supplement/Snack (indicate name/kcal Ensure High Protein /protein ) Provides kCal: 320 Provides Protein (gm) 32 Goal #1 PO intake of meals plus ONS to meet at least 75% energy and pro needs Anticipated Discharge Needs: None identified at this time Follow-Up By: 07/26/20 Additional Comments F/U: intakes (meals/ONS), wt
--- NOTE | 2020-07-25 12:05 | Progress Note ---
Assessment and Plan 60 y/o male with chest discomfort, shortness of breath and abnormal CXR 07/25/20: very high risk for cardiac arrest from hypoxemia, but no available beds in ICU. Given COVID status, ideally would not like to use bipap but may have to in the event of continued desats. While proning does better and does not need the mask along with HFNC. Encourage to prone as long as possible. 1. Continue steroids for 10 days. 2. Continue Remdesivir. Not a candidate for Convalescent Plasma 3. Please ask patient prone as tolerated during the day and sleep prone at night. Currently doing and tolerating 4. Agree with daily lasix but will need labs to monitor renal function and electrolytes. Needs labs for today. 5. Guarded prognosis to poor now with increasing oxygen requirement. May require intubation and high risk for cardiac arrest. Subjective Date of service: 07/25/20 Interval history: Oxygenation worse. Only a code bed left in ICU. Objective Vital Signs - 12hr 07/25/20 07/25/20 07/25/20 04:02 09:00 11:06 Temperature 97.6 F Pulse Rate 71 94 H Respiratory 16 18 Rate Blood Pressure 117/78 Blood Pressure 115/57 [Left] O2 Sat by Pulse 90 89 96 Oximetry CBC and BMP: 07/18/20 04:31 07/24/20 13:26 ABG, PT/INR, D-dimer: PT/INR, D-dimer PT 13.7 Sec. (12.2-14.9) 07/18/20 04:31 INR 1.06 (0.87-1.13) 07/18/20 04:31 D-Dimer 9523.70 ng/mlDDU (0-234) H 07/20/20 08:56 Abnormal lab findings: Abnormal Labs 07/17/20 07/17/20 07/17/20 17:30 17:30 22:48 MCH MCHC 35 H RDW Lymph % (Auto) 10.5 L Lymph # (Auto) 0.7 L Seg Neutrophils % 85.3 H Lymphocytes % (Manual) Seg Neutrophils # Man Lymphocytes # (Manual) D-Dimer 314.21 H Sodium Carbon Dioxide BUN 1 L Glucose 154 H Calcium Ferritin Lactate Dehydrogenase C-Reactive Protein Albumin Coronavirus (PCR) SARS-CoV-2 IgG Ab 07/17/20 07/17/20 07/18/20 22:48 22:48 04:31 MCH 33 H MCHC 35 H RDW 13.1 L Lymph % (Auto) Lymph # (Auto) Seg Neutrophils % Lymphocytes % (Manual) 5.0 L Seg Neutrophils # Man 8.1 H Lymphocytes # (Manual) 0.4 L D-Dimer Sodium Carbon Dioxide BUN Glucose 124 H Calcium Ferritin 889.3 H Lactate Dehydrogenase 832 H C-Reactive Protein 17.70 H Albumin Coronavirus (PCR) SARS-CoV-2 IgG Ab 07/18/20 07/18/20 07/18/20 04:31 08:50 18:48 MCH MCHC RDW Lymph % (Auto) Lymph # (Auto) Seg Neutrophils % Lymphocytes % (Manual) Seg Neutrophils # Man Lymphocytes # (Manual) D-Dimer 275.27 H Sodium Carbon Dioxide 31 H D BUN 23 H Glucose 143 H Calcium Ferritin Lactate Dehydrogenase C-Reactive Protein Albumin Coronavirus (PCR) Positive A SARS-CoV-2 IgG Ab 07/18/20 07/18/20 07/20/20 18:48 18:48 08:56 MCH MCHC RDW Lymph % (Auto) Lymph # (Auto) Seg Neutrophils % Lymphocytes % (Manual) Seg Neutrophils # Man Lymphocytes # (Manual) D-Dimer Sodium Carbon Dioxide BUN 22 H Glucose 219 H Calcium Ferritin 1164.0 H Lactate Dehydrogenase 560 H 739 H C-Reactive Protein 18.00 H 17.50 H Albumin 3.0 L Coronavirus (PCR) SARS-CoV-2 IgG Ab 07/20/20 07/20/20 07/21/20 08:56 08:56 05:24 MCH MCHC RDW Lymph % (Auto) Lymph # (Auto) Seg Neutrophils % Lymphocytes % (Manual) Seg Neutrophils # Man Lymphocytes # (Manual) D-Dimer 9523.70 H Sodium Carbon Dioxide BUN Glucose Calcium Ferritin 1581.0 H Lactate Dehydrogenase C-Reactive Protein Albumin Coronavirus (PCR) SARS-CoV-2 IgG Ab Reactive A 07/22/20 07/24/20 04:31 13:26 MCH MCHC RDW Lymph % (Auto) Lymph # (Auto) Seg Neutrophils % Lymphocytes % (Manual) Seg Neutrophils # Man Lymphocytes # (Manual) D-Dimer Sodium 146 H Carbon Dioxide 32 H BUN 28 H 26 H Glucose 144 H 116 H Calcium 8.3 L Ferritin Lactate Dehydrogenase C-Reactive Protein Albumin 3.3 L Coronavirus (PCR) SARS-CoV-2 IgG Ab
[2020-07-25] MEDS: ENOXAPARIN 40 MG/0.4 ML INJ SUB-Q SCH (21:13)
[2020-07-26] MEDS: FUROSEMIDE 40 MG/4 ML INJ IV SCH (05:05)
[2020-07-26] MEDS: dexAMETHasone 4 MG/ML VIAL IV SCH (09:35)
--- NOTE | 2020-07-26 09:35 | Progress Note ---
Assessment and Plan Assessment and plan: --SARS Covid 2 IgG antibodies positive; no indication for convalescent plasma On 07/24/2020 I spoke with patient's spouse . Cecilia Suarez and a family friend who is a physician patient's condition treatment plan tests and reports Consultants recommendations and prognosis, I answered all their questions we will closely monitor the patient and adjust management as needed. 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 Treat the underlying cause Prone position as tolerated Home O2 evaluation --COVID-19 positive Continue contact and droplet isolation, IV dexamethasone for total 4/9 days IV remdesivir per ID 2/ Patient is already on high flow oxygen Prone position as tolerated, inflammatory markers Anticoagulation per protocol, and supportive care Patient is critically ill, poor prognosis SARS to Covid IgG antibodies positive, no indication for convalescent --Elevated D-dimers; CTA chest negative for PE, mild pulmonary edema, I will add Lasix 40 mg IV 1 dose now, and daily thereafter lower extremity venous Doppler, negative for DVT -- Pneumonia Current Visit: Yes Status: Acute Plan to address problem: Continue empiric IV antibiotics. Procalcitonin is elevated In view of patient's pneumonia and severe hypoxia Elevated D-dimers will get CTA chest to rule out PE -- DVT prophylaxis Current Visit: Yes Status: Acute Plan to address problem: Patient placed on subcutaneous Lovenox. -- Full code status Current Visit: Yes Status: Acute Plan to address problem: Patient is a full code. Closely monitor the patient and adjust management as needed Follow CTA chest, and inflammatory markers Consults recommendations noted and appreciated Plan of care reviewed with the patient and his nurse 07/20; patient is severely hypoxemic, on high flow oxygen 40 L/100%/O2 sats 95 Elevated D-dimers, patient is severely hypoxemic, will check CTA chest to rule out PE Also consider lower extremity venous Doppler to rule out DVT 07/21: Patient remains on high flow oxygen however mild improvement from 40 L to 35 l Tolerating prone position, continue steroids remdesivir CTA chest negative for PE, lower extremity venous Doppler negative for DVT Consults recommendations noted and appreciated Poor prognosis, patient is aware 07/22/2020; patient feels slightly better remains on high flow oxygen however lower than yesterday 35 L/95% /O2 sat 94% 07/21/2020 advised the patient to rest in prone position as tolerated Home oxygen evaluation 07/23/2020; remains on high flow oxygen, continue steroids remdesivir, prone position and comfort care Patient is critically ill with very poor prognosis and prolonged hypoxemia on high flow oxygen Plan of care reviewed with the patient and his nurse 07/24/2020; patient was severely hypoxemic rapid response called oxygen settings adjusted patient is currently better, requiring high flow oxygen right from the day he was admitted, poor prognosis, discussed with patient's 07/25/2020; patient remains on high flow oxygen in mild distress, overall prognosis poor I discussed with , and family friend physician extensively yesterday Poor prognosis continue current management 07/26/2020; patient remains on high flow oxygen 40 L/100%/95% O2 sat +100% nonrebreather Patient is critically ill, poor prognosis, ID pulmonary following History Interval history: I have seen the patient in his room from a distance . Physical examination not done to reduce the risk of disease transmission Agree with the nurses evaluation Patient feels better Continues to be on high flow oxygen Vital signs noted Hospitalist Physical - Constitutional Vitals: Temp Pulse Resp BP Pulse Ox 97.6 F 90 20 122/74 90 07/26/20 04:51 07/26/20 04:51 07/26/20 04:51 07/26/20 04:51 07/26/20 04:51 General appearance: Present: mild distress, well-nourished, other (Hypoxemic on high flow oxygen) - EENT ENT: other (Physical examination not done to reduce the risk of disease transmission) - Neck Neck: Present: other (Physical examination not done to reduce the risk of disease transmission) - Respiratory Respiratory effort: other (Physical examination not done to reduce the risk of disease transmission) - Extremities Extremity abnormal: other (Physical examination not done to reduce the risk of disease transmission) - Abdominal General gastrointestinal: other (Physical examination not done to reduce the risk of disease transmission) - Psychiatric Psychiatric: other (Physical examination not done to reduce the risk of disease transmission) - Neurologic Neurologic: other (Physical examination not done to reduce the risk of disease transmission) HEART Score - HEART Score Troponin: Troponin T < 0.010 ng/mL (0.00-0.029) 07/17/20 22:48 Results - Labs CBC & Chem 7: 07/18/20 04:31 07/24/20 13:26 Labs: Laboratory Last Values WBC 8.8 K/mm3 (4.5-11.0) 07/18/20 04:31 RBC 4.36 M/mm3 (3.65-5.03) 07/18/20 04:31 Hgb 14.2 gm/dl (11.8-15.2) 07/18/20 04:31 Hct 40.7 % (35.5-45.6) 07/18/20 04:31 MCV 93 fl (84-94) 07/18/20 04:31 MCH 33 pg (28-32) H 07/18/20 04:31 MCHC 35 % (32-34) H 07/18/20 04:31 RDW 13.1 % (13.2-15.2) L 07/18/20 04:31 Plt Count 149 K/mm3 (140-440) 07/18/20 04:31 Lymph % (Auto) 10.5 % (13.4-35.0) L 07/17/20 17:30 [place] % (Auto) 4.0 % (0.0-7.3) 07/17/20 17:30 Eos % (Auto) 0.0 % (0.0-4.3) 07/17/20 17:30 Baso % (Auto) 0.2 % (0.0-1.8) 07/17/20 17:30 Lymph # (Auto) 0.7 K/mm3 (1.2-5.4) L 07/17/20 17:30 [place] # (Auto) 0.3 K/mm3 (0.0-0.8) 07/17/20 17:30 Eos # (Auto) 0.0 K/mm3 (0.0-0.4) 07/17/20 17:30 Baso # (Auto) 0.0 K/mm3 (0.0-0.1) 07/17/20 17:30 Add Manual Diff Complete 07/18/20 04:31 Total Counted 100 07/18/20 04:31 Seg Neutrophils % Engineer Process 07/18/20 04:31 Lymphocytes % (Manual) 5.0 % (13.4-35.0) L 07/18/20 04:31 Monocytes % (Manual) 3.0 % (0.0-7.3) 07/18/20 04:31 Nucleated RBC % Not Reportable 07/18/20 04:31 Seg Neutrophils # 5.4 K/mm3 (1.8-7.7) 07/17/20 17:30 Seg Neutrophils # Man 8.1 K/mm3 (1.8-7.7) H 07/18/20 04:31 Band Neutrophils # 0.0 K/mm3 07/18/20 04:31 Lymphocytes # (Manual) 0.4 K/mm3 (1.2-5.4) L 07/18/20 04:31 Abs React Lymphs (Man) 0.0 K/mm3 07/18/20 04:31 Monocytes # (Manual) 0.3 K/mm3 (0.0-0.8) 07/18/20 04:31 Eosinophils # (Manual) 0.0 K/mm3 (0.0-0.4) 07/18/20 04:31 Basophils # (Manual) 0.0 K/mm3 (0.0-0.1) 07/18/20 04:31 Metamyelocytes # 0.0 K/mm3 07/18/20 04:31 Myelocytes # 0.0 K/mm3 07/18/20 04:31 Promyelocytes # 0.0 K/mm3 07/18/20 04:31 Blast Cells # 0.0 K/mm3 07/18/20 04:31 WBC Morphology Not Reportable 07/18/20 04:31 Hypersegmented Neuts Not Reportable 07/18/20 04:31 Hyposegmented Neuts Not Reportable 07/18/20 04:31 Hypogranular Neuts Not Reportable 07/18/20 04:31 Smudge Cells Not Reportable 07/18/20 04:31 Toxic Granulation Not Reportable 07/18/20 04:31 Toxic Vacuolation Not Reportable 07/18/20 04:31 Dohle Bodies Not Reportable 07/18/20 04:31 Pelger-Huet Anomaly Not Reportable 07/18/20 04:31 Cheri Rods Not Reportable 07/18/20 04:31 Platelet Estimate Consistent w auto 07/18/20 04:31 Clumped Platelets Not Reportable 07/18/20 04:31 Plt Clumps, EDTA Not Reportable 07/18/20 04:31 Large Platelets Not Reportable 07/18/20 04:31 Giant Platelets Not Reportable 07/18/20 04:31 Platelet Satelliting Not Reportable 07/18/20 04:31 Plt Morphology Comment Not Reportable 07/18/20 04:31 RBC Morphology Not Reportable 07/18/20 04:31 Dimorphic RBCs Not Reportable 07/18/20 04:31 Polychromasia Not Reportable 07/18/20 04:31 Hypochromasia Not Reportable 07/18/20 04:31 Poikilocytosis Not Reportable 07/18/20 04:31 Anisocytosis 1+ 07/18/20 04:31 Microcytosis Not Reportable 07/18/20 04:31 Macrocytosis Not Reportable 07/18/20 04:31 Spherocytes Not Reportable 07/18/20 04:31 Pappenheimer Bodies Not Reportable 07/18/20 04:31 Sickle Cells Not Reportable 07/18/20 04:31 Target Cells Not Reportable 07/18/20 04:31 Tear Drop Cells Not Reportable 07/18/20 04:31 Ovalocytes Not Reportable 07/18/20 04:31 Helmet Cells Not Reportable 07/18/20 04:31 Siu-[place] Bodies Not Reportable 07/18/20 04:31 Taiban Rings Not Reportable 07/18/20 04:31 Jose Enrique Cells Not Reportable 07/18/20 04:31 Bite Cells Not Reportable 07/18/20 04:31 Crenated Cell Not Reportable 07/18/20 04:31 Elliptocytes Not Reportable 07/18/20 04:31 Acanthocytes (Spur) Not Reportable 07/18/20 04:31 Rouleaux Not Reportable 07/18/20 04:31 Hemoglobin C Crystals Not Reportable 07/18/20 04:31 Schistocytes Not Reportable 07/18/20 04:31 Malaria parasites Not Reportable 07/18/20 04:31 Wilfredo Bodies Not Reportable 07/18/20 04:31 Hem Pathologist Commnt No 07/18/20 04:31 PT 13.7 Sec. (12.2-14.9) 07/18/20 04:31 INR 1.06 (0.87-1.13) 07/18/20 04:31 D-Dimer 9523.70 ng/mlDDU (0-234) H 07/20/20 08:56 Sodium 144 mmol/L (137-145) 07/24/20 13:26 Potassium 4.4 mmol/L (3.6-5.0) 07/24/20 13:26 Chloride 101.8 mmol/L (98-107) 07/24/20 13:26 Carbon Dioxide 32 mmol/L (22-30) H 07/24/20 13:26 Anion Gap 15 mmol/L 07/24/20 13:26 BUN 26 mg/dL (9-20) H 07/24/20 13:26 Creatinine 0.9 mg/dL (0.8-1.3) 07/24/20 13:26 Estimated GFR > 60 ml/min 07/24/20 13:26 BUN/Creatinine Ratio 29 % 07/24/20 13:26 Glucose 116 mg/dL (75-100) H 07/24/20 13:26 Calcium 8.7 mg/dL (8.4-10.2) 07/24/20 13:26 Ferritin 1581.0 ng/mL (30.0-300.0) H 07/20/20 08:56 Total Bilirubin 0.20 mg/dL (0.1-1.2) 07/22/20 04:31 Direct Bilirubin < 0.2 mg/dL (0-0.2) 07/22/20 04:31 Indirect Bilirubin 0.0 mg/dL 07/22/20 04:31 AST 24 units/L (5-40) 07/22/20 04:31 ALT 15 units/L (7-56) 07/22/20 04:31 Alkaline Phosphatase 95 units/L (35-129) 07/22/20 04:31 Lactate Dehydrogenase 739 units/L (91-180) H 07/20/20 08:56 Troponin T < 0.010 ng/mL (0.00-0.029) 07/17/20 22:48 C-Reactive Protein 17.50 mg/dL (0.00-1.30) H 07/20/20 08:56 NT-Pro-B Natriuret Pep 290.3 pg/mL (0-900) 07/18/20 16:33 Total Protein 7.3 g/dL (6.3-8.2) 07/22/20 04:31 Albumin 3.3 g/dL (3.9-5) L 07/22/20 04:31 Albumin/Globulin Ratio 0.8 % 07/22/20 04:31 Procalcitonin 0.94 ng/mL (<0.15) 07/17/20 22:48 Coronavirus (PCR) Positive (Negative) A 07/18/20 08:50 SARS-CoV-2 IgG Ab Reactive (NonReactive) A 07/21/20 05:24 Cabrera/IV: Voiding Method Urinal IV Catheter Type [Left INT / Saline Lock Antecubital] IV Catheter Type [Right Distal INT / Saline Lock Port Hand] Active Medications - Current Medications Current Medications: Generic Name Dose Route Start Last Admin Trade Name Freq PRN Reason Stop Dose Admin Acetaminophen 650 mg 07/17/20 22:21 07/20/20 22:36 Acetaminophen 325 Mg Tab PO 650 mg Q4H PRN Administration Pain MILD(1-3)/Fever >100.5/AWAD Albuterol 2.5 mg 07/18/20 16:14 07/18/20 19:45 Albuterol 2.5 Mg/3 Ml Nebu IH 2.5 mg Q4HRT PRN Administration Shortness Of Breath Dexamethasone 6 mg 07/18/20 10:00 07/25/20 12:16 Dexamethasone 4 Mg/Ml Vial IV 07/26/20 10:01 Not Given Q24HR [facility] Enoxaparin Sodium 40 mg 07/18/20 22:00 07/25/20 21:13 Enoxaparin 40 Mg/0.4 Ml Inj SUB-Q 40 mg QDAY@2200 [facility] Administration Protocol Furosemide 40 mg 07/21/20 06:00 01/05/21 05:05 Furosemide 40 Mg/4 Ml Inj IV 40 mg DAILY@0600 [facility]ERON Administration Magnesium Hydroxide 30 ml 07/17/20 22:21 Magnesium Hydroxide (Mom) Oral Liqd Udc PO Q4H PRN Constipation Morphine Sulfate 2 mg 07/17/20 22:21 07/23/20 00:02 Morphine 2 Mg/1 Ml Inj IV 2 mg Q4H PRN Administration Pain, Moderate (4-6) Ondansetron HCl 4 mg 07/17/20 22:21 07/20/20 02:21 Ondansetron 4 Mg/2 Ml Inj IV 4 mg Q8H PRN Administration Nausea And Vomiting Sodium Chloride 10 ml 07/17/20 22:01 07/17/20 22:13 Sodium Chloride 0.9% 10 Ml Flush Syringe IV 10 ml PRN PRN Administration LINE FLUSH Sodium Chloride 10 ml 07/18/20 10:00 07/25/20 21:15 Sodium Chloride 0.9% 10 Ml Flush Syringe IV 10 ml BID SHERON Administration Sodium Chloride 10 ml 07/17/20 22:21 07/22/20 05:31 Sodium Chloride 0.9% 10 Ml Flush Syringe IV 10 ml PRN PRN Administration LINE FLUSH Nutrition/Malnutrition Assess - Dietary Evaluation Nutrition/Malnutrition Findings: Nutrition Notes Start: 07/23/20 13:19 Freq: Status: Active Protocol: Document 07/23/20 13:19 [facility] (Rec: 07/23/20 13:25 [facility] [id number]) Nutrition Notes Need for Assessment generated from: LOS Initial or Follow up Assessment Other Pertinent Diagnosis COVID-19 (+), pneu Current Diet Regular Labs/Tests Na 146 BUN 28 Pertinent Medications Decadron, Lasix Height 5 ft 11 in Weight 95.4 kg [place] Body Weight (kg) 78.18 BMI 29.3 Weight Status Overweight Subjective/Other Information Pt screened for LOS. PO intake records show 25% of meals consumed on 07/21 and 07/22; no other intakes recorded. Pt on high-flow O2. Percent of energy/protein needs met: 27% energy 29% pro Burn Absent Trauma Absent Current % PO Poor (25-49%) Minimum of two criteria No #1 Nutrition Diagnosis Inadequate oral intake Etiology COVID-19 (+) As Evidenced by Signs and Symptoms pt consuming <50% of meals Is patient on ventilator? No Is Patient Ambulatory and/or Out of Bed No REE-([facility] Negra-confined to bed) 9916.497 Calculation Used for Recommendations [facility] Additional Notes Pro needs 0.8-1g/k-95g/ day Fluid needs 1ml/kcal Nutrition Intervention Change Diet Order: Continue current diet order Add Supplement/Snack (indicate name/kcal Ensure High Protein /protein ) Provides kCal: 320 Provides Protein (gm) 32 Goal #1 PO intake of meals plus ONS to meet at least 75% energy and pro needs Anticipated Discharge Needs: None identified at this time Follow-Up By: 07/26/20 Additional Comments F/U: intakes (meals/ONS), wt
--- NOTE | 2020-07-26 10:43 | Progress Note ---
Assessment and Plan 60 y/o male with chest discomfort, shortness of breath and abnormal CXR 07/26/20: No new recs for today. Patient really needs to try to prone as much as possible during the day and sleep prone at night. He remains a high risk for cardiac arrest and intubation. 07/25/20: very high risk for cardiac arrest from hypoxemia, but no available beds in ICU. Given COVID status, ideally would not like to use bipap but may have to in the event of continued desats. While proning does better and does not need the mask along with HFNC. Encourage to prone as long as possible. 1. Continue steroids for 10 days. 2. Continue Remdesivir. Not a candidate for Convalescent Plasma 3. Please ask patient prone as tolerated during the day and sleep prone at night. Currently doing and tolerating 4. Agree with daily lasix but will need labs to monitor renal function and electrolytes. Needs labs for today. 5. Guarded prognosis to poor now with increasing oxygen requirement. May require intubation and high risk for cardiac arrest. Subjective Date of service: 07/26/20 Interval history: continues to be hypoxic and requiring HFNC as well as NRB. Now when proning as well. Objective Vital Signs - 12hr 07/26/20 07/26/20 03:23 04:51 Temperature 97.6 F Pulse Rate 90 Respiratory 20 Rate Blood Pressure 122/74 O2 Sat by Pulse 95 90 Oximetry CBC and BMP: 07/18/20 04:31 07/24/20 13:26 ABG, PT/INR, D-dimer: PT/INR, D-dimer PT 13.7 Sec. (12.2-14.9) 07/18/20 04:31 INR 1.06 (0.87-1.13) 07/18/20 04:31 D-Dimer 9523.70 ng/mlDDU (0-234) H 07/20/20 08:56 Abnormal lab findings: Abnormal Labs 07/17/20 07/17/20 07/17/20 17:30 17:30 22:48 MCH MCHC 35 H RDW Lymph % (Auto) 10.5 L Lymph # (Auto) 0.7 L Seg Neutrophils % 85.3 H Lymphocytes % (Manual) Seg Neutrophils # Man Lymphocytes # (Manual) D-Dimer 314.21 H Sodium Carbon Dioxide BUN 1 L Glucose 154 H Calcium Ferritin Lactate Dehydrogenase C-Reactive Protein Albumin Coronavirus (PCR) SARS-CoV-2 IgG Ab 07/17/20 07/17/20 07/18/20 22:48 22:48 04:31 MCH 33 H MCHC 35 H RDW 13.1 L Lymph % (Auto) Lymph # (Auto) Seg Neutrophils % Lymphocytes % (Manual) 5.0 L Seg Neutrophils # Man 8.1 H Lymphocytes # (Manual) 0.4 L D-Dimer Sodium Carbon Dioxide BUN Glucose 124 H Calcium Ferritin 889.3 H Lactate Dehydrogenase 832 H C-Reactive Protein 17.70 H Albumin Coronavirus (PCR) SARS-CoV-2 IgG Ab 07/18/20 07/18/20 07/18/20 04:31 08:50 18:48 MCH MCHC RDW Lymph % (Auto) Lymph # (Auto) Seg Neutrophils % Lymphocytes % (Manual) Seg Neutrophils # Man Lymphocytes # (Manual) D-Dimer 275.27 H Sodium Carbon Dioxide 31 H D BUN 23 H Glucose 143 H Calcium Ferritin Lactate Dehydrogenase C-Reactive Protein Albumin Coronavirus (PCR) Positive A SARS-CoV-2 IgG Ab 07/18/20 07/18/20 07/20/20 18:48 18:48 08:56 MCH MCHC RDW Lymph % (Auto) Lymph # (Auto) Seg Neutrophils % Lymphocytes % (Manual) Seg Neutrophils # Man Lymphocytes # (Manual) D-Dimer Sodium Carbon Dioxide BUN 22 H Glucose 219 H Calcium Ferritin 1164.0 H Lactate Dehydrogenase 560 H 739 H C-Reactive Protein 18.00 H 17.50 H Albumin 3.0 L Coronavirus (PCR) SARS-CoV-2 IgG Ab 07/20/20 07/20/20 07/21/20 08:56 08:56 05:24 MCH MCHC RDW Lymph % (Auto) Lymph # (Auto) Seg Neutrophils % Lymphocytes % (Manual) Seg Neutrophils # Man Lymphocytes # (Manual) D-Dimer 9523.70 H Sodium Carbon Dioxide BUN Glucose Calcium Ferritin 1581.0 H Lactate Dehydrogenase C-Reactive Protein Albumin Coronavirus (PCR) SARS-CoV-2 IgG Ab Reactive A 07/22/20 07/24/20 04:31 13:26 MCH MCHC RDW Lymph % (Auto) Lymph # (Auto) Seg Neutrophils % Lymphocytes % (Manual) Seg Neutrophils # Man Lymphocytes # (Manual) D-Dimer Sodium 146 H Carbon Dioxide 32 H BUN 28 H 26 H Glucose 144 H 116 H Calcium 8.3 L Ferritin Lactate Dehydrogenase C-Reactive Protein Albumin 3.3 L Coronavirus (PCR) SARS-CoV-2 IgG Ab
[2020-07-26 11:19] LABS: C-Reactive Protein 6.1 mg/dL (0.00-1.30)
[2020-07-26] MEDS: ENOXAPARIN 40 MG/0.4 ML INJ SUB-Q SCH (21:13)
[2020-07-27] MEDS: FUROSEMIDE 40 MG/4 ML INJ IV SCH (09:04)
--- NOTE | 2020-07-27 09:39 | Progress Note ---
Assessment and Plan 60 y/o male with chest discomfort, shortness of breath and abnormal CXR 07/27/20: Difficult situation. Patient appears to be not responding to any therapy. Steroids finished yesterday. Given the degree of inflammation will restart steroids for at least another 72-96 hours. In no improvement will stop. Not much else to do medical therapy [place]. Continue to keep patient net negative. Still remains high risk for intubation and if intubated given his current response to steroids, very high mortality. 07/26/20: No new recs for today. Patient really needs to try to prone as much as possible during the day and sleep prone at night. He remains a high risk for cardiac arrest and intubation. 07/25/20: very high risk for cardiac arrest from hypoxemia, but no available beds in ICU. Given COVID status, ideally would not like to use bipap but may have to in the event of continued desats. While proning does better and does not need the mask along with HFNC. Encourage to prone as long as possible. 1. Continue steroids for 10 days. 2. Continue Remdesivir. Not a candidate for Convalescent Plasma 3. Please ask patient prone as tolerated during the day and sleep prone at night. Currently doing and tolerating 4. Agree with daily lasix but will need labs to monitor renal function and electrolytes. Needs labs for today. 5. Guarded prognosis to poor now with increasing oxygen requirement. May require intubation and high risk for cardiac arrest. Subjective Date of service: 07/27/20 Interval history: Remains on HFNC and NRB. Sats in the low 90's. Proning at times. Steroids finished yesterday. Objective Vital Signs - 12hr 07/26/20 07/26/20 07/27/20 21:37 21:45 02:00 Temperature 99.1 F Pulse Rate 98 H Respiratory 20 Rate Blood Pressure 141/84 O2 Sat by Pulse 87 90 91 Oximetry 07/27/20 04:17 Temperature 98.7 F Pulse Rate 77 Respiratory 20 Rate Blood Pressure 127/79 O2 Sat by Pulse 85 Oximetry CBC and BMP: 07/18/20 04:31 07/24/20 13:26 ABG, PT/INR, D-dimer: PT/INR, D-dimer PT 13.7 Sec. (12.2-14.9) 07/18/20 04:31 INR 1.06 (0.87-1.13) 07/18/20 04:31 D-Dimer > 99187 ng/mlDDU (0-234) H 07/26/20 10:07 Abnormal lab findings: Abnormal Labs 07/17/20 07/17/20 07/17/20 17:30 17:30 22:48 MCH MCHC 35 H RDW Lymph % (Auto) 10.5 L Lymph # (Auto) 0.7 L Seg Neutrophils % 85.3 H Lymphocytes % (Manual) Seg Neutrophils # Man Lymphocytes # (Manual) D-Dimer 314.21 H Sodium Carbon Dioxide BUN 1 L Glucose 154 H Calcium Ferritin Lactate Dehydrogenase C-Reactive Protein Albumin Coronavirus (PCR) SARS-CoV-2 IgG Ab 07/17/20 07/17/20 07/18/20 22:48 22:48 04:31 MCH 33 H MCHC 35 H RDW 13.1 L Lymph % (Auto) Lymph # (Auto) Seg Neutrophils % Lymphocytes % (Manual) 5.0 L Seg Neutrophils # Man 8.1 H Lymphocytes # (Manual) 0.4 L D-Dimer Sodium Carbon Dioxide BUN Glucose 124 H Calcium Ferritin 889.3 H Lactate Dehydrogenase 832 H C-Reactive Protein 17.70 H Albumin Coronavirus (PCR) SARS-CoV-2 IgG Ab 07/18/20 07/18/20 07/18/20 04:31 08:50 18:48 MCH MCHC RDW Lymph % (Auto) Lymph # (Auto) Seg Neutrophils % Lymphocytes % (Manual) Seg Neutrophils # Man Lymphocytes # (Manual) D-Dimer 275.27 H Sodium Carbon Dioxide 31 H D BUN 23 H Glucose 143 H Calcium Ferritin Lactate Dehydrogenase C-Reactive Protein Albumin Coronavirus (PCR) Positive A SARS-CoV-2 IgG Ab 07/18/20 07/18/20 07/20/20 18:48 18:48 08:56 MCH MCHC RDW Lymph % (Auto) Lymph # (Auto) Seg Neutrophils % Lymphocytes % (Manual) Seg Neutrophils # Man Lymphocytes # (Manual) D-Dimer Sodium Carbon Dioxide BUN 22 H Glucose 219 H Calcium Ferritin 1164.0 H Lactate Dehydrogenase 560 H 739 H C-Reactive Protein 18.00 H 17.50 H Albumin 3.0 L Coronavirus (PCR) SARS-CoV-2 IgG Ab 07/20/20 07/20/20 07/21/20 08:56 08:56 05:24 MCH MCHC RDW Lymph % (Auto) Lymph # (Auto) Seg Neutrophils % Lymphocytes % (Manual) Seg Neutrophils # Man Lymphocytes # (Manual) D-Dimer 9523.70 H Sodium Carbon Dioxide BUN Glucose Calcium Ferritin 1581.0 H Lactate Dehydrogenase C-Reactive Protein Albumin Coronavirus (PCR) SARS-CoV-2 IgG Ab Reactive A 07/22/20 07/24/20 07/26/20 04:31 13:26 10:07 MCH MCHC RDW Lymph % (Auto) Lymph # (Auto) Seg Neutrophils % Lymphocytes % (Manual) Seg Neutrophils # Man Lymphocytes # (Manual) D-Dimer > 42252 H Sodium 146 H Carbon Dioxide 32 H BUN 28 H 26 H Glucose 144 H 116 H Calcium 8.3 L Ferritin Lactate Dehydrogenase C-Reactive Protein Albumin 3.3 L Coronavirus (PCR) SARS-CoV-2 IgG Ab 07/26/20 07/26/20 10:07 10:07 MCH MCHC RDW Lymph % (Auto) Lymph # (Auto) Seg Neutrophils % Lymphocytes % (Manual) Seg Neutrophils # Man Lymphocytes # (Manual) D-Dimer Sodium Carbon Dioxide BUN Glucose Calcium Ferritin 1079.0 H Lactate Dehydrogenase 708 H C-Reactive Protein 6.10 H Albumin Coronavirus (PCR) SARS-CoV-2 IgG Ab
[2020-07-27] MEDS: DEXAMETHASONE 4 MG TAB PO SCH (10:51)
--- NOTE | 2020-07-27 11:05 | Progress Note ---
Assessment and Plan Assessment and plan: Patient with acute hypoxemic respiratory failure on high flow oxygen COVID-19 pneumonia, persistent hypoxemia, remains on high flow oxygen 40 L/100%/O2 sats 91+ nonrebreather, critically ill with poor prognosis, patient and family aware --SARS Covid 2 IgG antibodies positive; no indication for convalescent plasma On 07/24/2020 I spoke with patient's spouse Ms. Cecilia Suarez and a family friend who is a physician patient's condition treatment plan tests and reports Consultants recommendations and prognosis, I answered all their questions we will closely monitor the patient and adjust management as needed. 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 Treat the underlying cause Prone position as tolerated Home O2 evaluation --Acute hypoxic respiratory failure/rapid response 07/24/2024 Patient has removed the oxygen, and went into severe hypoxemia Code met was called, respiratory be adjusted oxygen settings Patient feels better, updated --COVID-19 positive Continue contact and droplet isolation, IV dexamethasone for total 4/9 days IV remdesivir per ID 2/4 Patient is already on high flow oxygen Prone position as tolerated, inflammatory markers Anticoagulation per protocol, and supportive care Patient is critically ill, poor prognosis SARS to Covid IgG antibodies positive, no indication for convalescent --Elevated D-dimers; CTA chest negative for PE, mild pulmonary edema, I will add Lasix 40 mg IV 1 dose now, and daily thereafter lower extremity venous Doppler, negative for DVT -- Pneumonia Current Visit: Yes Status: Acute Plan to address problem: Continue empiric IV antibiotics. Procalcitonin is elevated In view of patient's pneumonia and severe hypoxia Elevated D-dimers will get CTA chest to rule out PE -- DVT prophylaxis Current Visit: Yes Status: Acute Plan to address problem: Patient placed on subcutaneous Lovenox. -- Full code status Current Visit: Yes Status: Acute Plan to address problem: Patient is a full code. Closely monitor the patient and adjust management as needed Follow CTA chest, and inflammatory markers Consults recommendations noted and appreciated Plan of care reviewed with the patient and his nurse 07/20; patient is severely hypoxemic, on high flow oxygen 40 L/100%/O2 sats 95 Elevated D-dimers, patient is severely hypoxemic, will check CTA chest to rule out PE Also consider lower extremity venous Doppler to rule out DVT 07/21: Patient remains on high flow oxygen however mild improvement from 40 L to 35 l Tolerating prone position, continue steroids remdesivir CTA chest negative for PE, lower extremity venous Doppler negative for DVT Consults recommendations noted and appreciated Poor prognosis, patient is aware 07/22/2020; patient feels slightly better remains on high flow oxygen however lower than yesterday 35 L/95% /O2 sat 94% 07/21/2020 advised the patient to rest in prone position as tolerated Home oxygen evaluation 07/23/2020; remains on high flow oxygen, continue steroids remdesivir, prone position and comfort care Patient is critically ill with very poor prognosis and prolonged hypoxemia on high flow oxygen Plan of care reviewed with the patient and his nurse 07/24/2020; patient was severely hypoxemic rapid response called oxygen settings adjusted patient is currently better, requiring high flow oxygen right from the day he was admitted, poor prognosis, discussed with patient's 07/25/2020; patient remains on high flow oxygen in mild distress, overall progno sis poor I discussed with , and family friend physician extensively yesterday Poor prognosis continue current management 07/26/2020; patient remains on high flow oxygen 40 L/100%/95% O2 sat +100% nonrebreather Patient is critically ill, poor prognosis, ID pulmonary following 07/27/2020; patient remains on high flow oxygen 40 L/100%/[address] 100% nonrebreather Very poor prognosis, patient and family aware Pulmonary recommendations noted and appreciated History Interval history: I have seen and examined the patient at the bedside Strict isolation precautions and PPE protocols observed I have talked to him and seen him from a distance Patient feels slightly better still remains on continuous high flow oxygen In mild distress Vital signs reviewed Hospitalist Physical - Constitutional Vitals: Temp Pulse Resp BP Pulse Ox 98.7 F 77 20 127/79 85 07/27/20 04:17 07/27/20 04:17 07/27/20 04:17 07/27/20 04:17 07/27/20 04:17 General appearance: Present: mild distress, well-nourished, other (Hypoxemic on high flow oxygen) - EENT ENT: other (Exam not done to reduce risk of disease transmission) - Neck Neck: Present: other (Exam not done to reduce risk of disease transmission) - Respiratory Respiratory effort: other (Exam not done to reduce risk of disease transmission) - Cardiovascular Rhythm: other (Exam not done to reduce risk of disease transmission) - Extremities Extremity abnormal: other (Exam not done to reduce risk of disease transmission) - Abdominal General gastrointestinal: other (Exam not done to reduce risk of disease transmission) - Psychiatric Psychiatric: other (Exam not done to reduce risk of disease transmission) - Neurologic Neurologic: other (Exam not done to reduce risk of disease transmission) HEART Score - HEART Score Troponin: Troponin T < 0.010 ng/mL (0.00-0.029) 07/17/20 22:48 Results - Labs CBC & Chem 7: 07/18/20 04:31 07/24/20 13:26 Labs: Laboratory Last Values WBC 8.8 K/mm3 (4.5-11.0) 07/18/20 04:31 RBC 4.36 M/mm3 (3.65-5.03) 07/18/20 04:31 Hgb 14.2 gm/dl (11.8-15.2) 07/18/20 04:31 Hct 40.7 % (35.5-45.6) 07/18/20 04:31 MCV 93 fl (84-94) 07/18/20 04:31 MCH 33 pg (28-32) H 07/18/20 04:31 MCHC 35 % (32-34) H 07/18/20 04:31 RDW 13.1 % (13.2-15.2) L 07/18/20 04:31 Plt Count 149 K/mm3 (140-440) 07/18/20 04:31 Lymph % (Auto) 10.5 % (13.4-35.0) L 07/17/20 17:30 [place] % (Auto) 4.0 % (0.0-7.3) 07/17/20 17:30 Eos % (Auto) 0.0 % (0.0-4.3) 07/17/20 17:30 Baso % (Auto) 0.2 % (0.0-1.8) 07/17/20 17:30 Lymph # (Auto) 0.7 K/mm3 (1.2-5.4) L 07/17/20 17:30 [place] # (Auto) 0.3 K/mm3 (0.0-0.8) 07/17/20 17:30 Eos # (Auto) 0.0 K/mm3 (0.0-0.4) 07/17/20 17:30 Baso # (Auto) 0.0 K/mm3 (0.0-0.1) 07/17/20 17:30 Add Manual Diff Complete 07/18/20 04:31 Total Counted 100 07/18/20 04:31 Seg Neutrophils % Stencil Inspector 07/18/20 04:31 Lymphocytes % (Manual) 5.0 % (13.4-35.0) L 07/18/20 04:31 Monocytes % (Manual) 3.0 % (0.0-7.3) 07/18/20 04:31 Nucleated RBC % Not Reportable 07/18/20 04:31 Seg Neutrophils # 5.4 K/mm3 (1.8-7.7) 07/17/20 17:30 Seg Neutrophils # Man 8.1 K/mm3 (1.8-7.7) H 07/18/20 04:31 Band Neutrophils # 0.0 K/mm3 07/18/20 04:31 Lymphocytes # (Manual) 0.4 K/mm3 (1.2-5.4) L 07/18/20 04:31 Abs React Lymphs (Man) 0.0 K/mm3 07/18/20 04:31 Monocytes # (Manual) 0.3 K/mm3 (0.0-0.8) 07/18/20 04:31 Eosinophils # (Manual) 0.0 K/mm3 (0.0-0.4) 07/18/20 04:31 Basophils # (Manual) 0.0 K/mm3 (0.0-0.1) 07/18/20 04:31 Metamyelocytes # 0.0 K/mm3 07/18/20 04:31 Myelocytes # 0.0 K/mm3 07/18/20 04:31 Promyelocytes # 0.0 K/mm3 07/18/20 04:31 Blast Cells # 0.0 K/mm3 07/18/20 04:31 WBC Morphology Not Reportable 07/18/20 04:31 Hypersegmented Neuts Not Reportable 07/18/20 04:31 Hyposegmented Neuts Not Reportable 07/18/20 04:31 Hypogranular Neuts Not Reportable 07/18/20 04:31 Smudge Cells Not Reportable 07/18/20 04:31 Toxic Granulation Not Reportable 07/18/20 04:31 Toxic Vacuolation Not Reportable 07/18/20 04:31 Dohle Bodies Not Reportable 07/18/20 04:31 Pelger-Huet Anomaly Not Reportable 07/18/20 04:31 Cheri Rods Not Reportable 07/18/20 04:31 Platelet Estimate Consistent w auto 07/18/20 04:31 Clumped Platelets Not Reportable 07/18/20 04:31 Plt Clumps, EDTA Not Reportable 07/18/20 04:31 Large Platelets Not Reportable 07/18/20 04:31 Giant Platelets Not Reportable 07/18/20 04:31 Platelet Satelliting Not Reportable 07/18/20 04:31 Plt Morphology Comment Not Reportable 07/18/20 04:31 RBC Morphology Not Reportable 07/18/20 04:31 Dimorphic RBCs Not Reportable 07/18/20 04:31 Polychromasia Not Reportable 07/18/20 04:31 Hypochromasia Not Reportable 07/18/20 04:31 Poikilocytosis Not Reportable 07/18/20 04:31 Anisocytosis 1+ 07/18/20 04:31 Microcytosis Not Reportable 07/18/20 04:31 Macrocytosis Not Reportable 07/18/20 04:31 Spherocytes Not Reportable 07/18/20 04:31 Pappenheimer Bodies Not Reportable 07/18/20 04:31 Sickle Cells Not Reportable 07/18/20 04:31 Target Cells Not Reportable 07/18/20 04:31 Tear Drop Cells Not Reportable 07/18/20 04:31 Ovalocytes Not Reportable 07/18/20 04:31 Helmet Cells Not Reportable 07/18/20 04:31 Siu-Ben Arnold Bodies Not Reportable 07/18/20 04:31 [place] Rings Not Reportable 07/18/20 04:31 Jose Enrique Cells Not Reportable 07/18/20 04:31 Bite Cells Not Reportable 07/18/20 04:31 Crenated Cell Not Reportable 07/18/20 04:31 Elliptocytes Not Reportable 07/18/20 04:31 Acanthocytes (Spur) Not Reportable 07/18/20 04:31 Rouleaux Not Reportable 07/18/20 04:31 Hemoglobin C Crystals Not Reportable 07/18/20 04:31 Schistocytes Not Reportable 07/18/20 04:31 Malaria parasites Not Reportable 07/18/20 04:31 Wilfredo Bodies Not Reportable 07/18/20 04:31 Hem Pathologist Commnt No 07/18/20 04:31 PT 13.7 Sec. (12.2-14.9) 07/18/20 04:31 INR 1.06 (0.87-1.13) 07/18/20 04:31 D-Dimer > 60961 ng/mlDDU (0-234) H 07/26/20 10:07 Sodium 144 mmol/L (137-145) 07/24/20 13:26 Potassium 4.4 mmol/L (3.6-5.0) 07/24/20 13:26 Chloride 101.8 mmol/L (98-107) 07/24/20 13:26 Carbon Dioxide 32 mmol/L (22-30) H 07/24/20 13:26 Anion Gap 15 mmol/L 07/24/20 13:26 BUN 26 mg/dL (9-20) H 07/24/20 13:26 Creatinine 0.9 mg/dL (0.8-1.3) 07/24/20 13:26 Estimated GFR > 60 ml/min 07/24/20 13:26 BUN/Creatinine Ratio 29 % 07/24/20 13:26 Glucose 116 mg/dL (75-100) H 07/24/20 13:26 Calcium 8.7 mg/dL (8.4-10.2) 07/24/20 13:26 Ferritin 1079.0 ng/mL (30.0-300.0) H 07/26/20 10:07 Total Bilirubin 0.20 mg/dL (0.1-1.2) 07/22/20 04:31 Direct Bilirubin < 0.2 mg/dL (0-0.2) 07/22/20 04:31 Indirect Bilirubin 0.0 mg/dL 07/22/20 04:31 AST 24 units/L (5-40) 07/22/20 04:31 ALT 15 units/L (7-56) 07/22/20 04:31 Alkaline Phosphatase 95 units/L (35-129) 07/22/20 04:31 Lactate Dehydrogenase 708 units/L (91-180) H 07/26/20 10:07 Troponin T < 0.010 ng/mL (0.00-0.029) 07/17/20 22:48 C-Reactive Protein 6.10 mg/dL (0.00-1.30) H 07/26/20 10:07 NT-Pro-B Natriuret Pep 290.3 pg/mL (0-900) 07/18/20 16:33 Total Protein 7.3 g/dL (6.3-8.2) 07/22/20 04:31 Albumin 3.3 g/dL (3.9-5) L 07/22/20 04:31 Albumin/Globulin Ratio 0.8 % 07/22/20 04:31 Procalcitonin 0.94 ng/mL (<0.15) 07/17/20 22:48 Coronavirus (PCR) Positive (Negative) A 07/18/20 08:50 SARS-CoV-2 IgG Ab Reactive (NonReactive) A 07/21/20 05:24 Cabrera/IV: Voiding Method Urinal IV Catheter Type [Left INT / Saline Lock Antecubital] IV Catheter Type [Right Distal INT / Saline Lock Port Hand] Active Medications - Current Medications Current Medications: Generic Name Dose Route Start Last Admin Trade Name Freq PRN Reason Stop Dose Admin Acetaminophen 650 mg 07/17/20 22:21 07/20/20 22:36 Acetaminophen 325 Mg Tab PO 650 mg Q4H PRN Administration Pain MILD(1-3)/Fever >100.5/AWAD Albuterol 2.5 mg 07/18/20 16:14 07/18/20 19:45 Albuterol 2.5 Mg/3 Ml Nebu IH 2.5 mg Q4HRT PRN Administration Shortness Of Breath Dexamethasone 6 mg 07/27/20 10:00 07/27/20 10:51 Dexamethasone 4 Mg Tab PO 6 mg Q24HR SHERON Administration Enoxaparin Sodium 40 mg 07/18/20 22:00 07/26/20 21:13 Enoxaparin 40 Mg/0.4 Ml Inj SUB-Q 40 mg QDAY@2200 SHERON Administration Protocol Furosemide 40 mg 07/21/20 06:00 07/27/20 09:04 Furosemide 40 Mg/4 Ml Inj IV 40 mg DAILY@0600 SHERON Administration Magnesium Hydroxide 30 ml 07/17/20 22:21 Magnesium Hydroxide (Mom) Oral Liqd Udc PO Q4H PRN Constipation Morphine Sulfate 2 mg 07/17/20 22:21 07/23/20 00:02 Morphine 2 Mg/1 Ml Inj IV 2 mg Q4H PRN Administration Pain, Moderate (4-6) Ondansetron HCl 4 mg 07/17/20 22:21 07/20/20 02:21 Ondansetron 4 Mg/2 Ml Inj IV 4 mg Q8H PRN Administration Nausea And Vomiting Sodium Chloride 10 ml 07/17/20 22:01 07/17/20 22:13 Sodium Chloride 0.9% 10 Ml Flush Syringe IV 10 ml PRN PRN Administration LINE FLUSH Sodium Chloride 10 ml 07/18/20 10:00 07/27/20 10:52 Sodium Chloride 0.9% 10 Ml Flush Syringe IV 10 ml BID SHERON Administration Sodium Chloride 10 ml 07/17/20 22:21 07/22/20 05:31 Sodium Chloride 0.9% 10 Ml Flush Syringe IV 10 ml PRN PRN Administration LINE FLUSH Nutrition/Malnutrition Assess - Dietary Evaluation Nutrition/Malnutrition Findings: Nutrition Notes Start: 07/23/20 13:1 9 Freq: Status: Active Protocol: Document 07/26/20 10:48 LM (Rec: 07/26/20 10:54 LM [id number]) Nutrition Notes Initial or Follow up Reassessment Other Pertinent Diagnosis COVID-19 (+), pneu Current Diet Regular Labs/Tests Reviewed Pertinent Medications Lasix Height 5 ft 11 in Weight 88.8 kg [place] Body Weight (kg) 78.18 BMI 27.3 Weight change and time frame Wt change noted Weight Status Overweight Subjective/Other Information Unable to speak to pt. Pt continues on high-flow O2. Per MD reports pt is at risk for cardiac arrest and intubation. Pt with only 25% intakes in chart. Burn Absent Trauma Absent Current % PO Poor (25-49%) Minimum of two criteria No #1 Nutrition Diagnosis Inadequate oral intake Diagnosis Progress(for reassessment Continues documentation) Is patient on ventilator? No Is Patient Ambulatory and/or Out of Bed No REE-([facility]-confined to bed) [phone] Calculation Used for Recommendations [facility] Additional Notes Pro needs 0.8-1g/k-95g/ day Fluid needs 1ml/kcal Nutrition Intervention Change Diet Order: Continue current diet order Add Supplement/Snack (indicate name/kcal Ensure High Protein /protein ) Provides kCal: 320 Provides Protein (gm) 32 Goal #1 PO intake of meals plus ONS to meet at least 75% energy and pro needs Anticipated Discharge Needs: Unable to determine at this time Follow-Up By: 07/28/20 Additional Comments F/U for intakes, wt
[2020-07-27 20:35] LABS: BUN/Creatinine Ratio 30; Blood Urea Nitrogen 27 mg/dL (9-20); Calcium 8.9 mg/dL (8.4-10.2); Hemolysis Index 7
[2020-07-27] MEDS: ENOXAPARIN 40 MG/0.4 ML INJ SUB-Q SCH (22:13)
[2020-07-28] MEDS: FUROSEMIDE 40 MG/4 ML INJ IV SCH (05:27)
[2020-07-28] MEDS: DEXAMETHASONE 4 MG TAB PO SCH (10:16)
--- NOTE | 2020-07-28 10:34 | Progress Note ---
Assessment and Plan 60 y/o male with chest discomfort, shortness of breath and abnormal CXR 07/28/20: No new recommendations as of right now. When beds become available will move patient down stairs for closer monitoring. 07/27/20: Difficult situation. Patient appears to be not responding to any therapy. Steroids finished yesterday. Given the degree of inflammation will restart steroids for at least another 72-96 hours. In no improvement will stop. Not much else to do medical therapy [place]. Continue to keep patient net negative. Still remains high risk for intubation and if intubated given his current response to steroids, very high mortality. 07/26/20: No new recs for today. Patient really needs to try to prone as much as possible during the day and sleep prone at night. He remains a high risk for cardiac arrest and intubation. 07/25/20: very high risk for cardiac arrest from hypoxemia, but no available beds in ICU. Given COVID status, ideally would not like to use bipap but may have to in the event of continued desats. While proning does better and does not need the mask along with HFNC. Encourage to prone as long as possible. 1. Continue steroids for 10 days. 2. Continue Remdesivir. Not a candidate for Convalescent Plasma 3. Please ask patient prone as tolerated during the day and sleep prone at night. Currently doing and tolerating 4. Agree with daily lasix but will need labs to monitor renal function and electrolytes. Needs labs for today. 5. Guarded prognosis to poor now with increasing oxygen requirement. May require intubation and high risk for cardiac arrest. Subjective Date of service: 07/28/20 Interval history: No acute events. Still on HFNC and NRB but proned. Objective Vital Signs - 12hr 07/28/20 07/28/20 07/28/20 02:00 05:26 08:00 Pulse Rate 97 H Respiratory 18 Rate O2 Sat by Pulse 93 94 94 Oximetry CBC and BMP: 07/18/20 04:31 07/27/20 19:45 ABG, PT/INR, D-dimer: PT/INR, D-dimer PT 13.7 Sec. (12.2-14.9) 07/18/20 04:31 INR 1.06 (0.87-1.13) 07/18/20 04:31 D-Dimer > 00269 ng/mlDDU (0-234) H 07/26/20 10:07 Abnormal lab findings: Abnormal Labs 07/17/20 07/17/20 07/17/20 17:30 17:30 22:48 MCH MCHC 35 H RDW Lymph % (Auto) 10.5 L Lymph # (Auto) 0.7 L Seg Neutrophils % 85.3 H Lymphocytes % (Manual) Seg Neutrophils # Man Lymphocytes # (Manual) D-Dimer 314.21 H Sodium Chloride Carbon Dioxide BUN 1 L Glucose 154 H Calcium Ferritin Lactate Dehydrogenase C-Reactive Protein Albumin Coronavirus (PCR) SARS-CoV-2 IgG Ab 07/17/20 07/17/20 07/18/20 22:48 22:48 04:31 MCH 33 H MCHC 35 H RDW 13.1 L Lymph % (Auto) Lymph # (Auto) Seg Neutrophils % Lymphocytes % (Manual) 5.0 L Seg Neutrophils # Man 8.1 H Lymphocytes # (Manual) 0.4 L D-Dimer Sodium Chloride Carbon Dioxide BUN Glucose 124 H Calcium Ferritin 889.3 H Lactate Dehydrogenase 832 H C-Reactive Protein 17.70 H Albumin Coronavirus (PCR) SARS-CoV-2 IgG Ab 07/18/20 07/18/20 07/18/20 04:31 08:50 18:48 MCH MCHC RDW Lymph % (Auto) Lymph # (Auto) Seg Neutrophils % Lymphocytes % (Manual) Seg Neutrophils # Man Lymphocytes # (Manual) D-Dimer 275.27 H Sodium Chloride Carbon Dioxide 31 H D BUN 23 H Glucose 143 H Calcium Ferritin Lactate Dehydrogenase C-Reactive Protein Albumin Coronavirus (PCR) Positive A SARS-CoV-2 IgG Ab 07/18/20 07/18/20 07/20/20 18:48 18:48 08:56 MCH MCHC RDW Lymph % (Auto) Lymph # (Auto) Seg Neutrophils % Lymphocytes % (Manual) Seg Neutrophils # Man Lymphocytes # (Manual) D-Dimer Sodium Chloride Carbon Dioxide BUN 22 H Glucose 219 H Calcium Ferritin 1164.0 H Lactate Dehydrogenase 560 H 739 H C-Reactive Protein 18.00 H 17.50 H Albumin 3.0 L Coronavirus (PCR) SARS-CoV-2 IgG Ab 07/20/20 07/20/20 07/21/20 08:56 08:56 05:24 MCH MCHC RDW Lymph % (Auto) Lymph # (Auto) Seg Neutrophils % Lymphocytes % (Manual) Seg Neutrophils # Man Lymphocytes # (Manual) D-Dimer 9523.70 H Sodium Chloride Carbon Dioxide BUN Glucose Calcium Ferritin 1581.0 H Lactate Dehydrogenase C-Reactive Protein Albumin Coronavirus (PCR) SARS-CoV-2 IgG Ab Reactive A 07/22/20 07/24/20 07/26/20 04:31 13:26 10:07 MCH MCHC RDW Lymph % (Auto) Lymph # (Auto) Seg Neutrophils % Lymphocytes % (Manual) Seg Neutrophils # Man Lymphocytes # (Manual) D-Dimer > 40090 H Sodium 146 H Chloride Carbon Dioxide 32 H BUN 28 H 26 H Glucose 144 H 116 H Calcium 8.3 L Ferritin Lactate Dehydrogenase C-Reactive Protein Albumin 3.3 L Coronavirus (PCR) SARS-CoV-2 IgG Ab 07/26/20 07/26/20 07/27/20 10:07 10:07 19:45 MCH MCHC RDW Lymph % (Auto) Lymph # (Auto) Seg Neutrophils % Lymphocytes % (Manual) Seg Neutrophils # Man Lymphocytes # (Manual) D-Dimer Sodium Chloride 97.4 L Carbon Dioxide 33 H BUN 27 H Glucose 175 H Calcium Ferritin 1079.0 H Lactate Dehydrogenase 708 H C-Reactive Protein 6.10 H Albumin Coronavirus (PCR) SARS-CoV-2 IgG Ab
--- NOTE | 2020-07-28 18:08 | Progress Note ---
Assessment and Plan Assessment and plan: Patient with acute hypoxemic respiratory failure on high flow oxygen COVID-19 pneumonia, persistent hypoxemia, remains on high flow oxygen 40 L/100%/O2 sats 91+ nonrebreather, critically ill with poor prognosis, patient and family aware --SARS Covid 2 IgG antibodies positive; no indication for convalescent plasma On 07/24/2020 I spoke with patient's spouse Ms. Cecilia Suarez and a family friend who is a physician patient's condition treatment plan tests and reports Consultants recommendations and prognosis, I answered all their questions we will closely monitor the patient and adjust management as needed. I also discussed with patient's nurse as well as nursing supervisor volunteer services Critical care time 35 minutes --Acute hypoxc respiratory failure; on high flow oxygen Current Visit: Yes Status: Acute Plan to address problem: 40 L /100% /O2 sats 95% 07/20/2020 35L/95% /O2 sat 94% 07/21/2020 40 L/100%/91 O2 sats 07/23/20 40 L/100%/97 O2 sats 07/24/2020 Mild improvement, titrate O2 sats to more than 90% Due to the underlying COVID-19 pneumonia. Treat the underlying cause Prone position as tolerated Home O2 evaluation --Acute hypoxic respiratory failure/rapid response 07/24/2024 Patient has removed the oxygen, and went into severe hypoxemia Code met was called, respiratory be adjusted oxygen settings Patient feels better, updated --COVID-19 positive Continue contact and droplet isolation, IV dexamethasone for total 4/9 days IV remdesivir per ID 2/4 Patient is already on high flow oxygen Prone position as tolerated, inflammatory markers Anticoagulation per protocol, and supportive care Patient is critically ill, poor prognosis SARS to Covid IgG antibodies positive, no indication for convalescent --Elevated D-dimers; CTA chest negative for PE, mild pulmonary edema, I will add Lasix 40 mg IV 1 dose now, and daily thereafter lower extremity venous Doppler, negative for DVT -- Pneumonia Current Visit: Yes Status: Acute Plan to address problem: Continue empiric IV antibiotics. Procalcitonin is elevated In view of patient's pneumonia and severe hypoxia Elevated D-dimers will get CTA chest to rule out PE -- DVT prophylaxis Current Visit: Yes Status: Acute Plan to address problem: Patient placed on subcutaneous Lovenox. -- Full code status Current Visit: Yes Status: Acute Plan to address problem: Patient is a full code. Closely monitor the patient and adjust management as needed Follow CTA chest, and inflammatory markers Consults recommendations noted and appreciated Plan of care reviewed with the patient and his nurse 07/20; patient is severely hypoxemic, on high flow oxygen 40 L/100%/O2 sats 95 Elevated D-dimers, patient is severely hypoxemic, will check CTA chest to rule out PE Also consider lower extremity venous Doppler to rule out DVT 07/21: Patient remains on high flow oxygen however mild improvement from 40 L to 35 l Tolerating prone position, continue steroids remdesivir CTA chest negative for PE, lower extremity venous Doppler negative for DVT Consults recommendations noted and appreciated Poor prognosis, patient is aware 07/22/2020; patient feels slightly better remains on high flow oxygen however lower than yesterday 35 L/95% /O2 sat 94% 07/21/2020 advised the patient to rest in prone position as tolerated Home oxygen evaluation 07/23/2020; remains on high flow oxygen, continue steroids remdesivir, prone position and comfort care Patient is critically ill with very poor prognosis and prolonged hypoxemia on high flow oxygen Plan of care reviewed with the patient and his nurse 07/24/2020; patient was severely hypoxemic rapid response called oxygen settings adjusted patient is currently better, requiring high flow oxygen right from the day he was admitted, poor prognosis, discussed with patient's 07/25/2020; patient remains on high flow oxygen in mild distress, overall progno sis poor I discussed with , and family friend physician extensively yesterday Poor prognosis continue current management 07/26/2020; patient remains on high flow oxygen 40 L/100%/95% O2 sat +100% nonrebreather Patient is critically ill, poor prognosis, ID pulmonary following 07/27/2020; patient remains on high flow oxygen 40 L/100%/[address] 100% nonrebreather Very poor prognosis, patient and family aware Pulmonary recommendations noted and appreciated 07/28/2020; patient remains critically ill, remains dependent on high flow oxygen 40 L +100% nonrebreather Very poor prognosis. History Interval history: I have seen and examined the patient at the bedside Isolation precautions PPE protocol strictly followed Patient remains critically ill Requiring high flow oxygen Shortness of breath Vital signs reviewed Hospitalist Physical - Constitutional Vitals: Temp Pulse Resp BP Pulse Ox 99.3 F 97 H 18 112/56 94 07/27/20 21:52 07/28/20 05:26 07/28/20 05:26 07/27/20 21:46 07/28/20 14:59 General appearance: Present: mild distress, well-nourished, other (Hypoxemic on high flow oxygen) - EENT Eyes: Present: PERRL, EOM intact - Neck Neck: Present: supple, normal ROM - Respiratory Respiratory effort: normal Respiratory: bilateral: diminished, rhonchi, negative: rales, wheezing - Cardiovascular Rhythm: regular Heart Sounds: Present: S1 & S2 - Extremities Extremities: no ischemia, No edema - Abdominal General gastrointestinal: soft, non-tender, non-distended, normal bowel sounds - Integumentary Integumentary: Present: clear, warm - Psychiatric Psychiatric: appropriate mood/affect, cooperative - Neurologic Neurologic: CNII-XII intact, moves all extremities HEART Score - HEART Score Troponin: Troponin T < 0.010 ng/mL (0.00-0.029) 07/17/20 22:48 Results - Labs CBC & Chem 7: 07/18/20 04:31 07/27/20 19:45 Labs: Laboratory Last Values WBC 8.8 K/mm3 (4.5-11.0) 07/18/20 04:31 RBC 4.36 M/mm3 (3.65-5.03) 07/18/20 04:31 Hgb 14.2 gm/dl (11.8-15.2) 07/18/20 04:31 Hct 40.7 % (35.5-45.6) 07/18/20 04:31 MCV 93 fl (84-94) 07/18/20 04:31 MCH 33 pg (28-32) H 07/18/20 04:31 MCHC 35 % (32-34) H 07/18/20 04:31 RDW 13.1 % (13.2-15.2) L 07/18/20 04:31 Plt Count 149 K/mm3 (140-440) 07/18/20 04:31 Lymph % (Auto) 10.5 % (13.4-35.0) L 07/17/20 17:30 [place] % (Auto) 4.0 % (0.0-7.3) 07/17/20 17:30 Eos % (Auto) 0.0 % (0.0-4.3) 07/17/20 17:30 Baso % (Auto) 0.2 % (0.0-1.8) 07/17/20 17:30 Lymph # (Auto) 0.7 K/mm3 (1.2-5.4) L 07/17/20 17:30 [place] # (Auto) 0.3 K/mm3 (0.0-0.8) 07/17/20 17:30 Eos # (Auto) 0.0 K/mm3 (0.0-0.4) 07/17/20 17:30 Baso # (Auto) 0.0 K/mm3 (0.0-0.1) 07/17/20 17:30 Add Manual Diff Complete 07/18/20 04:31 Total Counted 100 07/18/20 04:31 Seg Neutrophils % Watermelon Inspector 07/18/20 04:31 Lymphocytes % (Manual) 5.0 % (13.4-35.0) L 07/18/20 04:31 Monocytes % (Manual) 3.0 % (0.0-7.3) 07/18/20 04:31 Nucleated RBC % Not Reportable 07/18/20 04:31 Seg Neutrophils # 5.4 K/mm3 (1.8-7.7) 07/17/20 17:30 Seg Neutrophils # Man 8.1 K/mm3 (1.8-7.7) H 07/18/20 04:31 Band Neutrophils # 0.0 K/mm3 07/18/20 04:31 Lymphocytes # (Manual) 0.4 K/mm3 (1.2-5.4) L 07/18/20 04:31 Abs React Lymphs (Man) 0.0 K/mm3 07/18/20 04:31 Monocytes # (Manual) 0.3 K/mm3 (0.0-0.8) 07/18/20 04:31 Eosinophils # (Manual) 0.0 K/mm3 (0.0-0.4) 07/18/20 04:31 Basophils # (Manual) 0.0 K/mm3 (0.0-0.1) 07/18/20 04:31 Metamyelocytes # 0.0 K/mm3 07/18/20 04:31 Myelocytes # 0.0 K/mm3 07/18/20 04:31 Promyelocytes # 0.0 K/mm3 07/18/20 04:31 Blast Cells # 0.0 K/mm3 07/18/20 04:31 WBC Morphology Not Reportable 07/18/20 04:31 Hypersegmented Neuts Not Reportable 07/18/20 04:31 Hyposegmented Neuts Not Reportable 07/18/20 04:31 Hypogranular Neuts Not Reportable 07/18/20 04:31 Smudge Cells Not Reportable 07/18/20 04:31 Toxic Granulation Not Reportable 07/18/20 04:31 Toxic Vacuolation Not Reportable 07/18/20 04:31 Dohle Bodies Not Reportable 07/18/20 04:31 Pelger-Huet Anomaly Not Reportable 07/18/20 04:31 Cheri Rods Not Reportable 07/18/20 04:31 Platelet Estimate Consistent w auto 07/18/20 04:31 Clumped Platelets Not Reportable 07/18/20 04:31 Plt Clumps, EDTA Not Reportable 07/18/20 04:31 Large Platelets Not Reportable 07/18/20 04:31 Giant Platelets Not Reportable 07/18/20 04:31 Platelet Satelliting Not Reportable 07/18/20 04:31 Plt Morphology Comment Not Reportable 07/18/20 04:31 RBC Morphology Not Reportable 07/18/20 04:31 Dimorphic RBCs Not Reportable 07/18/20 04:31 Polychromasia Not Reportable 07/18/20 04:31 Hypochromasia Not Reportable 07/18/20 04:31 Poikilocytosis Not Reportable 07/18/20 04:31 Anisocytosis 1+ 07/18/20 04:31 Microcytosis Not Reportable 07/18/20 04:31 Macrocytosis Not Reportable 07/18/20 04:31 Spherocytes Not Reportable 07/18/20 04:31 Pappenheimer Bodies Not Reportable 07/18/20 04:31 Sickle Cells Not Reportable 07/18/20 04:31 Target Cells Not Reportable 07/18/20 04:31 Tear Drop Cells Not Reportable 07/18/20 04:31 Ovalocytes Not Reportable 07/18/20 04:31 Helmet Cells Not Reportable 07/18/20 04:31 Siu-Luke Bodies Not Reportable 07/18/20 04:31 [place] Rings Not Reportable 07/18/20 04:31 [place] Cells Not Reportable 07/18/20 04:31 Bite Cells Not Reportable 07/18/20 04:31 Crenated Cell Not Reportable 07/18/20 04:31 Elliptocytes Not Reportable 07/18/20 04:31 Acanthocytes (Spur) Not Reportable 07/18/20 04:31 Rouleaux Not Reportable 07/18/20 04:31 Hemoglobin C Crystals Not Reportable 07/18/20 04:31 Schistocytes Not Reportable 07/18/20 04:31 Malaria parasites Not Reportable 07/18/20 04:31 Wilfredo Bodies Not Reportable 07/18/20 04:31 Hem Pathologist Commnt No 07/18/20 04:31 PT 13.7 Sec. (12.2-14.9) 07/18/20 04:31 INR 1.06 (0.87-1.13) 07/18/20 04:31 D-Dimer > 09126 ng/mlDDU (0-234) H 07/26/20 10:07 Sodium 141 mmol/L (137-145) 07/27/20 19:45 Potassium 4.4 mmol/L (3.6-5.0) 07/27/20 19:45 Chloride 97.4 mmol/L (98-107) L 07/27/20 19:45 Carbon Dioxide 33 mmol/L (22-30) H 07/27/20 19:45 Anion Gap 15 mmol/L 07/27/20 19:45 BUN 27 mg/dL (9-20) H 07/27/20 19:45 Creatinine 0.9 mg/dL (0.8-1.3) 07/27/20 19:45 Estimated GFR > 60 ml/min 07/27/20 19:45 BUN/Creatinine Ratio 30 % 07/27/20 19:45 Glucose 175 mg/dL (75-100) H 07/27/20 19:45 Calcium 8.9 mg/dL (8.4-10.2) 07/27/20 19:45 Ferritin 1079.0 ng/mL (30.0-300.0) H 07/26/20 10:07 Total Bilirubin 0.20 mg/dL (0.1-1.2) 07/22/20 04:31 Direct Bilirubin < 0.2 mg/dL (0-0.2) 07/22/20 04:31 Indirect Bilirubin 0.0 mg/dL 07/22/20 04:31 AST 24 units/L (5-40) 07/22/20 04:31 ALT 15 units/L (7-56) 07/22/20 04:31 Alkaline Phosphatase 95 units/L (35-129) 07/22/20 04:31 Lactate Dehydrogenase 708 units/L (91-180) H 07/26/20 10:07 Troponin T < 0.010 ng/mL (0.00-0.029) 07/17/20 22:48 C-Reactive Protein 6.10 mg/dL (0.00-1.30) H 07/26/20 10:07 NT-Pro-B Natriuret Pep 290.3 pg/mL (0-900) 07/18/20 16:33 Total Protein 7.3 g/dL (6.3-8.2) 07/22/20 04:31 Albumin 3.3 g/dL (3.9-5) L 07/22/20 04:31 Albumin/Globulin Ratio 0.8 % 07/22/20 04:31 Procalcitonin 0.94 ng/mL (<0.15) 07/17/20 22:48 Coronavirus (PCR) Positive (Negative) A 07/18/20 08:50 SARS-CoV-2 IgG Ab Reactive (NonReactive) A 07/21/20 05:24 Cabrera/IV: Voiding Method Condom Catheter IV Catheter Type [Left INT / Saline Lock Antecubital] IV Catheter Type [Right Distal INT / Saline Lock Port Hand] Active Medications - Current Medications Current Medications: Generic Name Dose Route Start Last Admin Trade Name Freq PRN Reason Stop Dose Admin Acetaminophen 650 mg 07/17/20 22:21 07/20/20 22:36 Acetaminophen 325 Mg Tab PO 650 mg Q4H PRN Administration Pain MILD(1-3)/Fever >100.5/AWAD Albuterol 2.5 mg 07/18/20 16:14 07/18/20 19:45 Albuterol 2.5 Mg/3 Ml Nebu IH 2.5 mg Q4HRT PRN Administration Shortness Of Breath Dexamethasone 6 mg 07/27/20 10:00 07/28/20 10:16 Dexamethasone 4 Mg Tab PO 6 mg Q24HR SHERON Administration Enoxaparin Sodium 40 mg 07/18/20 22:00 07/27/20 22:13 Enoxaparin 40 Mg/0.4 Ml Inj SUB-Q 40 mg QDAY@2200 [facility] Administration Protocol Furosemide 40 mg 07/21/20 06:00 07/28/20 05:27 Furosemide 40 Mg/4 Ml Inj IV 40 mg DAILY@0600 [facility] Administration Magnesium Hydroxide 30 ml 07/17/20 22:21 Magnesium Hydroxide (Mom) Oral Liqd Udc PO Q4H PRN Constipation Morphine Sulfate 2 mg 07/17/20 22:21 07/23/20 00:02 Morphine 2 Mg/1 Ml Inj IV 2 mg Q4H PRN Administration Pain, Moderate (4-6) Ondansetron HCl 4 mg 07/17/20 22:21 07/20/20 02:21 Ondansetron 4 Mg/2 Ml Inj IV 4 mg Q8H PRN Administration Nausea And Vomiting Sodium Chloride 10 ml 07/17/20 22:01 07/17/20 22:13 Sodium Chloride 0.9% 10 Ml Flush Syringe IV 10 ml PRN PRN Administration LINE FLUSH Sodium Chloride 10 ml 07/18/20 10:00 07/28/20 10:16 Sodium Chloride 0.9% 10 Ml Flush Syringe IV 10 ml BID SHERON Administration Sodium Chloride 10 ml 07/17/20 22:21 07/22/20 05:31 Sodium Chloride 0.9% 10 Ml Flush Syringe IV 10 ml PRN PRN Administration LINE FLUSH Nutrition/Malnutrition Assess - Dietary Evaluation Nutrition/Malnutrition Findings: Nutrition Notes Start: 07/23/20 13:19 Freq: Status: Active Protocol: Document 07/28/20 11:08 YAKELIN (Rec: 07/28/20 11:17 YAKELIN [id number]) Nutrition Notes Initial or Follow up Reassessment Other Pertinent Diagnosis COVID-19 (+), pneu Current Diet Regular Labs/Tests BUN 27 BG 175 Pertinent Medications Lasix Decadron Height 5 ft 11 in Weight 88.6 kg [place] Body Weight (kg) 78.18 BMI 27.2 Weight Status Overweight Subjective/Other Information FU for intakes. Per RN, pt is very sick and struggling to consume PO which she continues to encourage. She states pt ate 0% of breakfast and drank sips of ONS with medications. Burn Absent Trauma Absent Current % PO Negligible Minimum of two criteria No Energy Intake (severe) < or equal to 50% Estimated Energy Requirement > or equal to 5 days #1 Nutrition Diagnosis Inadequate oral intake As Evidenced by Signs and Symptoms pt consuming <25% of meals Diagnosis Progress(for reassessment Worsened documentation) Is patient on ventilator? No Is Patient Ambulatory and/or Out of Bed No REE-([facility]-confined to bed) 8.243 Calculation Used for Recommendations [facility] Additional Notes Pro needs 0.8-1g/k-95g/ day Fluid needs 1ml/kcal Nutrition Intervention Change Diet Order: Continue current diet order Add Supplement/Snack (indicate name/kcal Ensure High Protein twice /protein ) daily Provides kCal: 320 Provides Protein (gm) 32 Goal #1 PO intake of meals plus ONS to meet at least 75% energy and pro needs Anticipated Discharge Needs: Unable to determine at this time Follow-Up By: 08/02/20 Additional Comments F/U for intakes, ONS tolerance , wt chnages
[2020-07-28] MEDS: ENOXAPARIN 40 MG/0.4 ML INJ SUB-Q SCH (23:19)
[2020-07-29] MEDS: FUROSEMIDE 40 MG/4 ML INJ IV SCH (05:26)
[2020-07-29] MEDS: DEXAMETHASONE 4 MG TAB PO SCH (10:57)
--- NOTE | 2020-07-29 11:36 | Progress Note ---
Assessment and Plan 60 y/o male with chest discomfort, shortness of breath and abnormal CXR 07/29/20: Supportive measures. Proning and wean as tolerated. 07/28/20: No new recommendations as of right now. When beds become available will move patient down stairs for closer monitoring. 07/27/20: Difficult situation. Patient appears to be not responding to any therapy. Steroids finished yesterday. Given the degree of inflammation will restart steroids for at least another 72-96 hours. In no improvement will stop. Not much else to do medical therapy [place]. Continue to keep patient net negative. Still remains high risk for intubation and if intubated given his current response to steroids, very high mortality. 07/26/20: No new recs for today. Patient really needs to try to prone as much as possible during the day and sleep prone at night. He remains a high risk for cardiac arrest and intubation. 07/25/20: very high risk for cardiac arrest from hypoxemia, but no available beds in ICU. Given COVID status, ideally would not like to use bipap but may have to in the event of continued desats. While proning does better and does not need the mask along with HFNC. Encourage to prone as long as possible. 1. Continue steroids for 10 days. 2. Continue Remdesivir. Not a candidate for Convalescent Plasma 3. Please ask patient prone as tolerated during the day and sleep prone at night. Currently doing and tolerating 4. Agree with daily lasix but will need labs to monitor renal function and electrolytes. Needs labs for today. 5. Guarded prognosis to poor now with increasing oxygen requirement. May require intubation and high risk for cardiac arrest. Subjective Date of service: 07/29/20 Interval history: Still on HFNC. Not able to wean. SAts in the high 80's low 90's on this. Per charting, positive fluid balance. Objective Vital Signs - 12hr 07/29/20 07/29/20 07/29/20 00:00 02:00 04:15 Temperature 98.5 F Pulse Rate 99 H Respiratory 16 Rate Blood Pressure 117/82 O2 Sat by Pulse 88 94 88 Oximetry 07/29/20 09:08 Temperature Pulse Rate Respiratory Rate Blood Pressure O2 Sat by Pulse 90 Oximetry CBC and BMP: 07/18/20 04:31 07/27/20 19:45 ABG, PT/INR, D-dimer: PT/INR, D-dimer PT 13.7 Sec. (12.2-14.9) 07/18/20 04:31 INR 1.06 (0.87-1.13) 07/18/20 04:31 D-Dimer > 86215 ng/mlDDU (0-234) H 07/26/20 10:07 Abnormal lab findings: Abnormal Labs 07/17/20 07/17/20 07/17/20 17:30 17:30 22:48 MCH MCHC 35 H RDW Lymph % (Auto) 10.5 L Lymph # (Auto) 0.7 L Seg Neutrophils % 85.3 H Lymphocytes % (Manual) Seg Neutrophils # Man Lymphocytes # (Manual) D-Dimer 314.21 H Sodium Chloride Carbon Dioxide BUN 1 L Glucose 154 H Calcium Magnesium Ferritin Lactate Dehydrogenase C-Reactive Protein Albumin Coronavirus (PCR) SARS-CoV-2 IgG Ab 07/17/20 07/17/20 07/18/20 22:48 22:48 04:31 MCH 33 H MCHC 35 H RDW 13.1 L Lymph % (Auto) Lymph # (Auto) Seg Neutrophils % Lymphocytes % (Manual) 5.0 L Seg Neutrophils # Man 8.1 H Lymphocytes # (Manual) 0.4 L D-Dimer Sodium Chloride Carbon Dioxide BUN Glucose 124 H Calcium Magnesium Ferritin 889.3 H Lactate Dehydrogenase 832 H C-Reactive Protein 17.70 H Albumin Coronavirus (PCR) SARS-CoV-2 IgG Ab 07/18/20 07/18/20 07/18/20 04:31 08:50 18:48 MCH MCHC RDW Lymph % (Auto) Lymph # (Auto) Seg Neutrophils % Lymphocytes % (Manual) Seg Neutrophils # Man Lymphocytes # (Manual) D-Dimer 275.27 H Sodium Chloride Carbon Dioxide 31 H D BUN 23 H Glucose 143 H Calcium Magnesium Ferritin Lactate Dehydrogenase C-Reactive Protein Albumin Coronavirus (PCR) Positive A SARS-CoV-2 IgG Ab 07/18/20 07/18/20 07/20/20 18:48 18:48 08:56 MCH MCHC RDW Lymph % (Auto) Lymph # (Auto) Seg Neutrophils % Lymphocytes % (Manual) Seg Neutrophils # Man Lymphocytes # (Manual) D-Dimer Sodium Chloride Carbon Dioxide BUN 22 H Glucose 219 H Calcium Magnesium Ferritin 1164.0 H Lactate Dehydrogenase 560 H 739 H C-Reactive Protein 18.00 H 17.50 H Albumin 3.0 L Coronavirus (PCR) SARS-CoV-2 IgG Ab 07/20/20 07/20/20 07/21/20 08:56 08:56 05:24 MCH MCHC RDW Lymph % (Auto) Lymph # (Auto) Seg Neutrophils % Lymphocytes % (Manual) Seg Neutrophils # Man Lymphocytes # (Manual) D-Dimer 9523.70 H Sodium Chloride Carbon Dioxide BUN Glucose Calcium Magnesium Ferritin 1581.0 H Lactate Dehydrogenase C-Reactive Protein Albumin Coronavirus (PCR) SARS-CoV-2 IgG Ab Reactive A 07/22/20 07/24/20 07/26/20 04:31 13:26 10:07 MCH MCHC RDW Lymph % (Auto) Lymph # (Auto) Seg Neutrophils % Lymphocytes % (Manual) Seg Neutrophils # Man Lymphocytes # (Manual) D-Dimer > 48670 H Sodium 146 H Chloride Carbon Dioxide 32 H BUN 28 H 26 H Glucose 144 H 116 H Calcium 8.3 L Magnesium Ferritin Lactate Dehydrogenase C-Reactive Protein Albumin 3.3 L Coronavirus (PCR) SARS-CoV-2 IgG Ab 07/26/20 07/26/20 07/27/20 10:07 10:07 19:45 MCH MCHC RDW Lymph % (Auto) Lymph # (Auto) Seg Neutrophils % Lymphocytes % (Manual) Seg Neutrophils # Man Lymphocytes # (Manual) D-Dimer Sodium Chloride 97.4 L Carbon Dioxide 33 H BUN 27 H Glucose 175 H Calcium Magnesium Ferritin 1079.0 H Lactate Dehydrogenase 708 H C-Reactive Protein 6.10 H Albumin Coronavirus (PCR) SARS-CoV-2 IgG Ab 07/29/20 02:09 MCH MCHC RDW Lymph % (Auto) Lymph # (Auto) Seg Neutrophils % Lymphocytes % (Manual) Seg Neutrophils # Man Lymphocytes # (Manual) D-Dimer Sodium Chloride Carbon Dioxide BUN Glucose Calcium Magnesium 3.00 H Ferritin Lactate Dehydrogenase C-Reactive Protein Albumin Coronavirus (PCR) SARS-CoV-2 IgG Ab
--- NOTE | 2020-07-29 18:59 | Progress Note ---
Assessment and Plan Critical care statement The high probability OF a clinically significant sudden or life-threatening deterioration of the cardiorespiratory system and endocrine system required my full and direct attention, intervention and postoperative management. The aggregate critical care time was 40 minutes. The time is in addition to time spent performing reported procedures but includes the followin: Data review and interpretation 2: Patient assessment and monitoring of vital signs 3: Documentation 4:: Medication orders and management Assessment and Plan Patient with acute hypoxemic respiratory failure on high flow oxygen COVID-19 pneumonia, persistent hypoxemia, remains on high flow oxygen 40 L/100%/O2 sats 91+ nonrebreather, critically ill with poor prognosis, patient and family aware --Acute hypoxc respiratory failure; on high flow oxygen Current Visit: Yes Status: Acute Plan to address problem: 40 L /100% /O2 sats 95% 07/20/2020 35L/95% /O2 sat 94% 07/21/2020 40 L/100%/91 O2 sats 07/23/20 40 L/100%/97 O2 sats 07/24/2020 Mild improvement, titrate O2 sats to more than 90% Due to the underlying COVID-19 pneumonia. Treat the underlying cause Prone position as tolerated Home O2 evaluation Hypernatremia increase water intake Acute hypoxic respiratory failure -rapid response 07/24/2020 Patient has removed the oxygen, and went into severe hypoxemia Code met was called, respiratory be adjusted oxygen settings Patient feels better, updated --COVID-19 positive Continue contact and droplet isolation, IV dexamethasone for total 4/9 days IV remdesivir per ID 2/4 Patient is already on high flow oxygen Prone position as tolerated, inflammatory markers Anticoagulation per protocol, and supportive care Patient is critically ill, poor prognosis SARS to Covid IgG antibodies positive, no indication for convalescent --Elevated D-dimers; CTA chest negative for PE, mild pulmonary edema, I will add Lasix 40 mg IV 1 dose now, and daily thereafter lower extremity venous Doppler, negative for DVT -- Pneumonia Current Visit: Yes Status: Acute Plan to address problem: Continue empiric IV antibiotics. Procalcitonin is elevated In view of patient's pneumonia and severe hypoxia Elevated D-dimers will get CTA chest to rule out PE -- DVT prophylaxis Current Visit: Yes Status: Acute Plan to address problem: Patient placed on subcutaneous Lovenox. -- Full code status Current Visit: Yes Status: Acute Plan to address problem: Patient is a full code. Subjective Date of service: 07/29/20 Principal diagnosis: Acute respiratory failure with hypoxia Interval history: History Interval history: I have seen and examined the patient at the bedside Isolation precautions PPE protocol strictly followed Patient remains critically ill Requiring high flow oxygen Shortness of breath Vital signs reviewed Patient continues to be on high levels of oxygen Closely monitor the patient and adjust management as needed Follow CTA chest, and inflammatory markers Consults recommendations noted and appreciated Plan of care reviewed with the patient and his nurse 07/20; patient is severely hypoxemic, on high flow oxygen 40 L/100%/O2 sats 95 Elevated D-dimers, patient is severely hypoxemic, will check CTA chest to rule out PE Also consider lower extremity venous Doppler to rule out DVT 07/21: Patient remains on high flow oxygen however mild improvement from 40 L to 35 l Tolerating prone position, continue steroids remdesivir CTA chest negative for PE, lower extremity venous Doppler negative for DVT Consults recommendations noted and appreciated Poor prognosis, patient is aware 07/22/2020; patient feels slightly better remains on high flow oxygen however lower than yesterday 35 L/95% /O2 sat 94% 07/21/2020 advised the patient to rest in prone position as tolerated Home oxygen evaluation 07/23/2020; remains on high flow oxygen, continue steroids remdesivir, prone position and comfort care Patient is critically ill with very poor prognosis and prolonged hypoxemia on high flow oxygen Plan of care reviewed with the patient and his nurse 07/24/2020; patient was severely hypoxemic rapid response called oxygen settings adjusted patient is currently better, requiring high flow oxygen right from the day he was admitted, poor prognosis, discussed with patient's 07/25/2020; patient remains on high flow oxygen in mild distress, overall pro gnosis poor I discussed with , and family friend physician extensively yesterday Poor prognosis continue current management 07/26/2020; patient remains on high flow oxygen 40 L/100%/95% O2 sat +100% nonrebreather Patient is critically ill, poor prognosis, ID pulmonary following 07/27/2020; patient remains on high flow oxygen 40 L/100%/[address] 100% nonrebreather Very poor prognosis, patient and family aware Pulmonary recommendations noted and appreciated 07/28/2020; patient remains critically ill, remains dependent on high flow oxygen 40 L +100% nonrebreather Very poor prognosis. 07/29/2020 Remains critically ill On high flow oxygen Objective - Constitutional Vitals: Vital Signs - 12hr 07/29/20 07/29/20 07/29/20 09:08 11:53 14:21 Temperature 98.4 F Pulse Rate 99 H Respiratory 20 Rate Blood Pressure 153/89 O2 Sat by Pulse 90 89 84 Oximetry 07/29/20 16:21 Temperature 98.0 F Pulse Rate 109 H Respiratory Rate Blood Pressure 138/92 O2 Sat by Pulse 87 Oximetry General appearance: Present: no acute distress, well-nourished - EENT Eyes: PERRL, EOM intact ENT: hearing intact, clear oral mucosa Ears: bilateral: normal - Neck Neck: supple, normal ROM - Respiratory Respiratory effort: normal Respiratory: bilateral: CTA - Breasts Breasts: normal - Cardiovascular Heart rate: 78 Rhythm: regular Heart Sounds: Present: S1 & S2. Absent: gallop, rub Extremities: pulses intact, No edema, normal color, Full ROM - Gastrointestinal General gastrointestinal: Present: soft, non-tender, non-distended, normal bowel sounds - Genitourinary Male genitourinary: normal - Integumentary Integumentary: clear, warm, dry - Musculoskeletal Musculoskeletal: 1, strength equal bilaterally - Neurologic Neurologic: moves all extremities - Psychiatric Psychiatric: memory intact, appropriate mood/affect, intact judgment & insight - Labs CBC & Chem 7: 08/06/20 08:59 08/06/20 08:59 Labs: Abnormal lab results 07/29/20 Range/Units 02:09 Magnesium 3.00 H (1.7-2.3) mg/dL HEART Score - HEART Score Troponin: Troponin T < 0.010 ng/mL (0.00-0.029) 07/29/20 02:09
[2020-07-29] MEDS: ENOXAPARIN 40 MG/0.4 ML INJ SUB-Q SCH (21:26)
--- NOTE | 2020-07-29 22:46 | Event Note ---
Date: 07/29/20 Called by patient nurse at 10:45 PM. Patient nurse reported that patient is restless and agitated. Patient came with Covid 19 infection, respiratory failure with hypoxia secondary to Covid 19 pneumonia. Patient is on BiPAP and respiration rate in 30s to 40s, oxygen saturation 80's to 90%. Patient is given anti-anxiety medication Xanax 0.25 mg. Patient is transferred to the ICU for close monitoring.
[2020-07-29] MEDS ORDERED: ALPRAZolam 0.25 MG TAB PO ONE (23:00)
--- NOTE | 2020-07-30 01:03 | XRay Report ---
CHEST 1 VIEW INDICATION / CLINICAL INFORMATION: r/o PNA. Shortness of breath COMPARISON: 07/17/2020 FINDINGS: SUPPORT DEVICES: None. HEART / MEDIASTINUM: No significant abnormality. LUNGS / PLEURA: There are diffuse bilateral pulmonary opacities present. This was noted on the most r ecent chest radiograph and may have worsened slightly especially in the lung bases. No significant pl eural effusion. No pneumothorax. ADDITIONAL FINDINGS: No significant additional findings. IMPRESSION: 1. Diffuse bilateral pulmonary opacities, slightly worse compared with 07/17/2020. The appearance is most suggestive for multifocal pneumonia. Please correlate clinically. Signer Name: Shelly Vasquez MD Signed: 07/30/2020 12:58 AM Workstation Name: [id number]
[2020-07-30] MEDS: FUROSEMIDE 40 MG/4 ML INJ IV SCH (08:05)
[2020-07-30] MEDS: MORPHINE 2 MG/1 ML INJ IV PRN (08:06)
[2020-07-30] MEDS: DEXAMETHASONE 4 MG TAB PO SCH (10:13)
--- NOTE | 2020-07-30 10:23 | Progress Note ---
Assessment and Plan - Patient Problems (1) Acute respiratory failure with hypoxia Current Visit: Yes Status: Acute (2) COVID-19 Current Visit: Yes Status: Acute (3) Hypoxia Current Visit: Yes Status: Acute (4) Pneumonia Current Visit: Yes Status: Acute (5) Agitation Current Visit: Yes Status: Acute (6) Prerenal azotemia Current Visit: Yes Status: Acute Subjective Interval history: events of last night note. Now on in ICU. Still w episodes of agitation Objective Vital Signs - 12hr 07/29/20 07/29/20 07/29/20 22:40 23:21 23:30 Temperature Pulse Rate 84 91 H Pulse Rate [ Apical] Respiratory 56 H 51 H Rate Blood Pressure 151/91 O2 Sat by Pulse 90 94 92 Oximetry 07/29/20 07/29/20 07/29/20 23:32 23:40 23:50 Temperature Pulse Rate 92 H 91 H 96 H Pulse Rate [ Apical] Respiratory 49 H 46 H 40 H Rate Blood Pressure 143/82 143/82 150/90 O2 Sat by Pulse 93 94 95 Oximetry 07/29/20 07/30/20 07/30/20 23:52 00:00 00:15 Temperature 98.8 F Pulse Rate 98 H 95 H 97 H Pulse Rate [ Apical] Respiratory 42 H 39 H 33 H Rate Blood Pressure 150/90 143/84 154/102 O2 Sat by Pulse 93 94 95 Oximetry 07/30/20 07/30/20 07/30/20 00:30 00:45 01:00 Temperature Pulse Rate 97 H 97 H 97 H Pulse Rate [ Apical] Respiratory 28 H 29 H 29 H Rate Blood Pressure 152/106 144/103 146/102 O2 Sat by Pulse 97 96 98 Oximetry 07/30/20 07/30/20 07/30/20 01:15 01:30 01:45 Temperature Pulse Rate 96 H 90 94 H Pulse Rate [ Apical] Respiratory 30 H 25 H 27 H Rate Blood Pressure 154/107 154/107 139/95 O2 Sat by Pulse 98 99 98 Oximetry 07/30/20 07/30/20 07/30/20 02:00 02:15 02:30 Temperature Pulse Rate 91 H 86 85 Pulse Rate [ Apical] Respiratory 26 H 23 26 H Rate Blood Pressure 148/103 139/105 149/103 O2 Sat by Pulse 99 99 98 Oximetry 07/30/20 07/30/20 07/30/20 02:45 03:00 03:15 Temperature Pulse Rate 84 96 H 90 Pulse Rate [ Apical] Respiratory 24 33 H 25 H Rate Blood Pressure 161/104 160/101 140/100 O2 Sat by Pulse 97 97 96 Oximetry 07/30/20 07/30/20 07/30/20 03:30 03:45 03:54 Temperature 98.2 F Pulse Rate 88 86 Pulse Rate [ Apical] Respiratory 25 H 24 Rate Blood Pressure 147/103 144/104 O2 Sat by Pulse 96 95 Oximetry 07/30/20 07/30/20 07/30/20 04:00 04:15 04:30 Temperature Pulse Rate 86 79 89 Pulse Rate [ Apical] Respiratory 26 H 20 34 H Rate Blood Pressure 151/104 154/103 163/85 O2 Sat by Pulse 95 96 94 Oximetry 07/30/20 07/30/20 07/30/20 04:46 05:00 05:15 Temperature Pulse Rate 97 H 89 83 Pulse Rate [ Apical] Respiratory 32 H 39 H 38 H Rate Blood Pressure 136/97 146/93 149/88 O2 Sat by Pulse 97 95 95 Oximetry 07/30/20 07/30/20 07/30/20 05:27 05:30 05:45 Temperature Pulse Rate 84 86 86 Pulse Rate [ Apical] Respiratory 37 H 38 H 35 H Rate Blood Pressure 149/88 125/78 139/95 O2 Sat by Pulse 94 94 92 Oximetry 07/30/20 07/30/20 07/30/20 06:00 06:15 06:30 Temperature Pulse Rate 85 84 84 Pulse Rate [ Apical] Respiratory 26 H 23 40 H Rate Blood Pressure 143/93 138/97 153/96 O2 Sat by Pulse 95 95 95 Oximetry 07/30/20 07/30/20 07/30/20 06:45 07:00 07:15 Temperature Pulse Rate 86 87 90 Pulse Rate [ Apical] Respiratory 27 H 36 H 41 H Rate Blood Pressure 146/98 147/94 146/86 O2 Sat by Pulse 95 96 95 Oximetry 07/30/20 07/30/20 07/30/20 07:30 07:46 08:00 Temperature Pulse Rate 87 89 83 Pulse Rate [ 91 H Apical] Respiratory 36 H 42 H 43 H Rate Blood Pressure 142/91 133/74 121/66 O2 Sat by Pulse 96 95 94 Oximetry 07/30/20 07/30/20 07/30/20 08:01 08:06 08:15 Temperature Pulse Rate 94 H 91 H Pulse Rate [ Apical] Respiratory 40 H 43 H 49 H Rate Blood Pressure 121/66 145/91 O2 Sat by Pulse 94 94 Oximetry 07/30/20 07/30/20 07/30/20 08:30 08:45 09:00 Temperature Pulse Rate 93 H 92 H 102 H Pulse Rate [ Apical] Respiratory 31 H 37 H 28 H Rate Blood Pressure 137/87 143/95 144/88 O2 Sat by Pulse 94 94 96 Oximetry 07/30/20 07/30/20 07/30/20 09:10 09:16 09:30 Temperature Pulse Rate 102 H 101 H 104 H Pulse Rate [ Apical] Respiratory 29 H 33 H 28 H Rate Blood Pressure 144/88 141/99 151/98 O2 Sat by Pulse 96 94 96 Oximetry 07/30/20 07/30/20 09:45 10:00 Temperature Pulse Rate 98 H 95 H Pulse Rate [ Apical] Respiratory 30 H 31 H Rate Blood Pressure 128/87 149/98 O2 Sat by Pulse 96 95 Oximetry Constitutional: alert, other (on bipap) Eyes: non-icteric ENT: oropharynx moist Neck: supple Ascultation: Bilateral: diminished breath sounds Cardiovascular: other (tachycardia) Gastrointestinal: normoactive bowel sounds, soft, non-tender Integumentary: normal Extremities: no cyanosis Neurologic: normal mental status, non-focal exam CBC and BMP: 07/18/20 04:31 07/27/20 19:45 ABG, PT/INR, D-dimer: PT/INR, D-dimer PT 13.7 Sec. (12.2-14.9) 07/18/20 04:31 INR 1.06 (0.87-1.13) 07/18/20 04:31 D-Dimer > 35943 ng/mlDDU (0-234) H 07/26/20 10:07 Abnormal lab findings: Abnormal Labs 07/17/20 07/17/20 07/17/20 17:30 17:30 22:48 MCH MCHC 35 H RDW Lymph % (Auto) 10.5 L Lymph # (Auto) 0.7 L Seg Neutrophils % 85.3 H Lymphocytes % (Manual) Seg Neutrophils # Man Lymphocytes # (Manual) D-Dimer 314.21 H Sodium Chloride Carbon Dioxide BUN 1 L Glucose 154 H Calcium Magnesium Ferritin Lactate Dehydrogenase C-Reactive Protein Albumin Coronavirus (PCR) SARS-CoV-2 IgG Ab 07/17/20 07/17/20 07/18/20 22:48 22:48 04:31 MCH 33 H MCHC 35 H RDW 13.1 L Lymph % (Auto) Lymph # (Auto) Seg Neutrophils % Lymphocytes % (Manual) 5.0 L Seg Neutrophils # Man 8.1 H Lymphocytes # (Manual) 0.4 L D-Dimer Sodium Chloride Carbon Dioxide BUN Glucose 124 H Calcium Magnesium Ferritin 889.3 H Lactate Dehydrogenase 832 H C-Reactive Protein 17.70 H Albumin Coronavirus (PCR) SARS-CoV-2 IgG Ab 07/18/20 07/18/20 07/18/20 04:31 08:50 18:48 MCH MCHC RDW Lymph % (Auto) Lymph # (Auto) Seg Neutrophils % Lymphocytes % (Manual) Seg Neutrophils # Man Lymphocytes # (Manual) D-Dimer 275.27 H Sodium Chloride Carbon Dioxide 31 H D BUN 23 H Glucose 143 H Calcium Magnesium Ferritin Lactate Dehydrogenase C-Reactive Protein Albumin Coronavirus (PCR) Positive A SARS-CoV-2 IgG Ab 07/18/20 07/18/20 07/20/20 18:48 18:48 08:56 MCH MCHC RDW Lymph % (Auto) Lymph # (Auto) Seg Neutrophils % Lymphocytes % (Manual) Seg Neutrophils # Man Lymphocytes # (Manual) D-Dimer Sodium Chloride Carbon Dioxide BUN 22 H Glucose 219 H Calcium Magnesium Ferritin 1164.0 H Lactate Dehydrogenase 560 H 739 H C-Reactive Protein 18.00 H 17.50 H Albumin 3.0 L Coronavirus (PCR) SARS-CoV-2 IgG Ab 07/20/20 07/20/20 07/21/20 08:56 08:56 05:24 MCH MCHC RDW Lymph % (Auto) Lymph # (Auto) Seg Neutrophils % Lymphocytes % (Manual) Seg Neutrophils # Man Lymphocytes # (Manual) D-Dimer 9523.70 H Sodium Chloride Carbon Dioxide BUN Glucose Calcium Magnesium Ferritin 1581.0 H Lactate Dehydrogenase C-Reactive Protein Albumin Coronavirus (PCR) SARS-CoV-2 IgG Ab Reactive A 07/22/20 07/24/20 07/26/20 04:31 13:26 10:07 MCH MCHC RDW Lymph % (Auto) Lymph # (Auto) Seg Neutrophils % Lymphocytes % (Manual) Seg Neutrophils # Man Lymphocytes # (Manual) D-Dimer > 19660 H Sodium 146 H Chloride Carbon Dioxide 32 H BUN 28 H 26 H Glucose 144 H 116 H Calcium 8.3 L Magnesium Ferritin Lactate Dehydrogenase C-Reactive Protein Albumin 3.3 L Coronavirus (PCR) SARS-CoV-2 IgG Ab 07/26/20 07/26/20 07/27/20 10:07 10:07 19:45 MCH MCHC RDW Lymph % (Auto) Lymph # (Auto) Seg Neutrophils % Lymphocytes % (Manual) Seg Neutrophils # Man Lymphocytes # (Manual) D-Dimer Sodium Chloride 97.4 L Carbon Dioxide 33 H BUN 27 H Glucose 175 H Calcium Magnesium Ferritin 1079.0 H Lactate Dehydrogenase 708 H C-Reactive Protein 6.10 H Albumin Coronavirus (PCR) SARS-CoV-2 IgG Ab 07/29/20 02:09 MCH MCHC RDW Lymph % (Auto) Lymph # (Auto) Seg Neutrophils % Lymphocytes % (Manual) Seg Neutrophils # Man Lymphocytes # (Manual) D-Dimer Sodium Chloride Carbon Dioxide BUN Glucose Calcium Magnesium 3.00 H Ferritin Lactate Dehydrogenase C-Reactive Protein Albumin Coronavirus (PCR) SARS-CoV-2 IgG Ab Chest x-ray: report reviewed, image reviewed (bilat infiltrates sl worse than 07/18)
[2020-07-30] MEDS ORDERED: LORazepam 2 MG/ML VIAL IV ONE ×2 (10:36→15:50)
[2020-07-30] MEDS ORDERED: LORazepam 2 MG/ML VIAL IV PRN (11:21)
[2020-07-30 11:31] LABS: Creatine Kinase MB 4.5 ng/mL (0.0-4.0)
[2020-07-30] MEDS: D5W/0.9% NACL 1,000 ML IV SCH (12:11)
[2020-07-30] MEDS: LORazepam 2 MG/ML VIAL IV PRN ×2 (17:48→20:47)
[2020-07-30] MEDS: ENOXAPARIN 40 MG/0.4 ML INJ SUB-Q SCH (21:09)
[2020-07-30] MEDS: traZODone 50 MG TAB PO SCH (21:17)
[2020-07-30] MEDS ORDERED: HALOPERIDOL LACTATE 5 MG/1 ML INJ IM ONE (21:43)
[2020-07-31] MEDS: LORazepam 2 MG/ML VIAL IV PRN ×4 (00:12→06:43)
[2020-07-31] MEDS: FUROSEMIDE 40 MG/4 ML INJ IV SCH (05:28)
[2020-07-31] MEDS ORDERED: ETOMIDATE 20 MG/10 ML INJ IV ONE ×2 (08:30→08:37)
[2020-07-31] MEDS ORDERED: SUCCINYLCHOLINE CHLORIDE 200 MG/10 ML INJ MDV IV ONE (08:30)
[2020-07-31] MEDS ORDERED: ROCURONIUM 50 MG/5 ML INJ IV ONE (08:36)
[2020-07-31] MEDS ORDERED: SUCCINYLCHOLINE CHLORIDE 200 MG/10 ML INJ MDV ONE (08:36)
[2020-07-31] MEDS ORDERED: NORepinephrine/NS 4 MG-250 ML 4 MG/250 ML BAG IV SCH (09:00)
--- NOTE | 2020-07-31 09:03 | Progress Note ---
Assessment and Plan Critical care statement The high probability OF a clinically significant sudden or life-threatening deterioration of the cardiorespiratory system and endocrine system required my full and direct attention, intervention and postoperative management. The aggregate critical care time was 40 minutes. The time is in addition to time spent performing reported procedures but includes the followin: Data review and interpretation 2: Patient assessment and monitoring of vital signs 3: Documentation 4:: Medication orders and management Assessment and Plan Patient with acute hypoxemic respiratory failure on high flow oxygen COVID-19 pneumonia, persistent hypoxemia, remains on high flow oxygen 40 L/100%/O2 sats 91+ nonrebreather, critically ill with poor prognosis, patient and family aware --SARS Covid 2 IgG antibodies positive; no indication for convalescent plasma On 07/24/2020 I spoke with patient's spouse Ms. Cecilia Suarez and a family friend who is a physician patient's condition treatment plan tests and reports Consultants recommendations and prognosis, I answered all their questions we wi ll closely monitor the patient and adjust management as needed. I also discussed with patient's nurse as well as nursing supervisor litharge Critical care time 35 minutes --Acute hypoxc respiratory failure; on high flow oxygen Current Visit: Yes Status: Acute Plan to address problem: 40 L /100% /O2 sats 95% 07/20/2020 35L/95% /O2 sat 94% 07/21/2020 40 L/100%/91 O2 sats 07/23/20 40 L/100%/97 O2 sats 07/24/2020 Mild improvement, titrate O2 sats to more than 90% Due to the underlying COVID-19 pneumonia. Treat the underlying cause Prone position as tolerated Home O2 evaluation Hypernatremia increase water intake Acute hypoxic respiratory failure -rapid response 07/24/2020 Patient has removed the oxygen, and went into severe hypoxemia Code met was called, respiratory be adjusted oxygen settings Patient feels better, updated --COVID-19 positive Continue contact and droplet isolation, IV dexamethasone for total 4/9 days IV remdesivir per ID 08/25 Patient is already on high flow oxygen Prone position as tolerated, inflammatory markers Anticoagulation per protocol, and supportive care Patient is critically ill, poor prognosis SARS to Covid IgG antibodies positive, no indication for convalescent --Elevated D-dimers; CTA chest negative for PE, mild pulmonary edema, I will add Lasix 40 mg IV 1 dose now, and daily thereafter lower extremity venous Doppler, negative for DVT -- Pneumonia Current Visit: Yes Status: Acute Plan to address problem: Continue empiric IV antibiotics. Procalcitonin is elevated In view of patient's pneumonia and severe hypoxia Elevated D-dimers will get CTA chest to rule out PE -- DVT prophylaxis Current Visit: Yes Status: Acute Plan to address problem: Patient placed on subcutaneous Lovenox. -- Full code status Current Visit: Yes Status: Acute Plan to address problem: Patient is a full code. Subjective Date of service: 07/30/20 Principal diagnosis: Acute respiratory failure with hypoxia, Covid pneumonia Interval history: History Interval history: I have seen and examined the patient at the bedside Isolation precautions PPE protocol strictly followed Patient remains critically ill Requiring high flow oxygen Shortness of breath Vital signs reviewed Patient continues to be on high levels of oxygen Closely monitor the patient and adjust management as needed Follow CTA chest, and inflammatory markers Consults recommendations noted and appreciated Plan of care reviewed with the patient and his nurse 07/20; patient is severely hypoxemic, on high flow oxygen 40 L/100%/O2 sats 95 Elevated D-dimers, patient is severely hypoxemic, will check CTA chest to rule out PE Also consider lower extremity venous Doppler to rule out DVT 07/21: Patient remains on high flow oxygen however mild improvement from 40 L to 35 l Tolerating prone position, continue steroids remdesivir CTA chest negative for PE, lower extremity venous Doppler negative for DVT Consults recommendations noted and appreciated Poor prognosis, patient is aware 07/22/2020; patient feels slightly better remains on high flow oxygen however lower than yesterday 35 L/95% /O2 sat 94% 07/21/2020 advised the patient to rest in prone position as tolerated Home oxygen evaluation 07/23/2020; remains on high flow oxygen, continue steroids remdesivir, prone position and comfort care Patient is critically ill with very poor prognosis and prolonged hypoxemia on high flow oxygen Plan of care reviewed with the patient and his nurse 07/24/2020; patient was severely hypoxemic rapid response called oxygen settings adjusted patient is currently better, requiring high flow oxygen right from the day he was admitted, poor prognosis, discussed with patient's 07/25/2020; patient remains on high flow oxygen in mild distress, overall prognosis poor I discussed with , and family friend physician Dr.Mundo extensively yesterday Poor prognosis continue current management 07/26/2020; patient remains on high flow oxygen 40 L/100%/95% O2 sat +100% nonrebreather Patient is critically ill, poor prognosis, ID pulmonary following 07/27/2020; patient remains on high flow oxygen 40 L/100%/[address] 100% nonrebreather Very poor prognosis, patient and family aware Pulmonary recommendations noted and appreciated 07/28/2020; patient remains critically ill, remains dependent on high flow oxygen 40 L +100% nonrebreather Very poor prognosis. 07/29/2020 Remains critically ill On high flow oxygen 07/30/2020 On high flow oxygen Is critically ill Objective - Constitutional Vitals: Vital Signs - 12hr 07/30/20 07/30/20 07/30/20 21:15 21:30 21:45 Temperature Pulse Rate 114 H 111 H 103 H Pulse Rate [ Apical] Respiratory 46 H 52 H 39 H Rate Blood Pressure 146/100 126/90 125/93 O2 Sat by Pulse 78 L 88 87 Oximetry 07/30/20 07/30/20 07/30/20 22:00 22:15 22:30 Temperature Pulse Rate 103 H 99 H 111 H Pulse Rate [ Apical] Respiratory 38 H 30 H 51 H Rate Blood Pressure 124/88 128/92 140/87 O2 Sat by Pulse 89 91 93 Oximetry 07/30/20 07/30/20 07/30/20 22:45 23:00 23:05 Temperature Pulse Rate 101 H 99 H 96 H Pulse Rate [ Apical] Respiratory 26 H 25 H 24 Rate Blood Pressure 129/89 122/93 122/93 O2 Sat by Pulse 94 97 98 Oximetry 07/30/20 07/30/20 07/30/20 23:15 23:20 23:30 Temperature Pulse Rate 96 H 94 H 92 H Pulse Rate [ Apical] Respiratory 22 24 24 Rate Blood Pressure 135/96 135/96 142/95 O2 Sat by Pulse 94 97 95 Oximetry 07/30/20 07/30/20 07/31/20 23:43 23:45 00:00 Temperature 98.8 F Pulse Rate 93 H 91 H Pulse Rate [ 93 H Apical] Respiratory 25 H 26 H Rate Blood Pressure 122/90 125/87 O2 Sat by Pulse 98 96 Oximetry 07/31/20 07/31/20 07/31/20 00:15 00:30 00:45 Temperature Pulse Rate 90 93 H 87 Pulse Rate [ Apical] Respiratory 22 24 25 H Rate Blood Pressure 136/94 129/93 128/85 O2 Sat by Pulse 93 96 94 Oximetry 07/31/20 07/31/20 07/31/20 01:00 01:15 01:30 Temperature Pulse Rate 92 H 94 H 94 H Pulse Rate [ Apical] Respiratory 23 24 26 H Rate Blood Pressure 128/87 136/95 146/92 O2 Sat by Pulse 94 96 94 Oximetry 07/31/20 07/31/20 07/31/20 01:45 02:00 02:15 Temperature Pulse Rate 87 97 H 95 H Pulse Rate [ Apical] Respiratory 19 22 26 H Rate Blood Pressure 158/100 131/92 122/88 O2 Sat by Pulse 92 94 92 Oximetry 07/31/20 07/31/20 07/31/20 02:30 02:45 03:00 Temperature Pulse Rate 93 H 89 88 Pulse Rate [ Apical] Respiratory 26 H 25 H 24 Rate Blood Pressure 125/91 130/89 122/90 O2 Sat by Pulse 90 93 91 Oximetry 07/31/20 07/31/20 07/31/20 03:07 03:15 03:29 Temperature 98.0 F Pulse Rate 90 85 Pulse Rate [ Apical] Respiratory 24 25 H Rate Blood Pressure 122/90 124/89 O2 Sat by Pulse 94 92 Oximetry 07/31/20 07/31/20 07/31/20 03:30 03:45 04:00 Temperature Pulse Rate 86 97 H 99 H Pulse Rate [ 97 H Apical] Respiratory 19 31 H 37 H Rate Blood Pressure 126/93 126/93 120/89 O2 Sat by Pulse 95 88 95 Oximetry 07/31/20 07/31/20 07/31/20 04:15 04:30 04:45 Temperature Pulse Rate 94 H 98 H 90 Pulse Rate [ Apical] Respiratory 34 H 41 H 23 Rate Blood Pressure 124/91 131/81 136/90 O2 Sat by Pulse 92 84 90 Oximetry 07/31/20 07/31/20 07/31/20 05:00 05:15 05:30 Temperature Pulse Rate 89 92 H 90 Pulse Rate [ Apical] Respiratory 28 H 29 H 25 H Rate Blood Pressure 125/92 133/95 128/92 O2 Sat by Pulse 94 94 94 Oximetry 07/31/20 07/31/20 07/31/20 05:45 06:00 07:28 Temperature Pulse Rate 87 90 115 H Pulse Rate [ Apical] Respiratory 25 H 25 H 36 H Rate Blood Pressure 137/98 126/95 122/64 O2 Sat by Pulse 96 96 88 Oximetry General appearance: Present: severe distress, well-nourished - EENT Eyes: PERRL, EOM intact ENT: hearing intact, clear oral mucosa Ears: bilateral: normal - Neck Neck: supple, normal ROM - Respiratory Respiratory effort: normal Respiratory: bilateral: CTA - Breasts Breasts: normal - Cardiovascular Heart rate: 78 Rhythm: regular Heart Sounds: Present: S1 & S2. Absent: gallop, rub Extremities: pulses intact, No edema, normal color, Full ROM - Gastrointestinal General gastrointestinal: Present: soft, non-tender, non-distended, normal bowel sounds - Genitourinary Male genitourinary: normal - Integumentary Integumentary: clear, warm, dry - Musculoskeletal Musculoskeletal: 1, strength equal bilaterally - Neurologic Neurologic: moves all extremities - Psychiatric Psychiatric: memory intact, appropriate mood/affect, intact judgment & insight - Labs CBC & Chem 7: 08/06/20 08:59 08/06/20 08:59 Labs: Abnormal lab results 07/30/20 07/30/20 07/30/20 Range/Units 10:33 11:54 17:30 POC Glucose 183 H 199 H (70-105) mg/dL Total Creatine Kinase 174 H (55-170) units/L CK-MB (CK-2) 4.5 H (0.0-4.0) ng/mL 07/30/20 Range/Units 23:08 POC Glucose 194 H (70-105) mg/dL Total Creatine Kinase (55-170) units/L CK-MB (CK-2) (0.0-4.0) ng/mL HEART Score - HEART Score Troponin: Troponin T 0.018 ng/mL (0.00-0.029) 07/30/20 10:33
--- NOTE | 2020-07-31 09:52 | Event Note ---
Date: 07/31/20 (Emergent ICU Intubation) Called to ICU for emergent intubation of COVID+ patient with hypoxic respiratory failure. On arrival, patient noted to be somnolent but responsive, VS BP 125/87, HR 104, SpO2 85% and tachypneic on BiPAP. Donned PPE per protocol prior to patient contact. Induction with etomidate 12mg IV and succinylcholine 100mg IV. Easy intubation w/ Glidescope, grade 1 view, 1 attempt, atraumatic. Endotracheal placement confirmed with direct visualization, + CO2 color change. Brief desaturation to high 60s immediately after intubation but recovered to >90% w/ AMBU within seconds. Placed on vent by RT. Post intubation VS BP 140s/90s, HR 110s, SpO2 >90%. CXR and sedation orders per ICU team. Approx time [id number] - [id number] Josie Ramirez MD Anesthesiologist
--- NOTE | 2020-07-31 09:53 | XRay Report ---
CHEST 1 VIEW, 07/31/2020 8:54 AM CLINICAL INFORMATION/INDICATION: Endotracheal tube placement COMPARISON: Chest radiograph, 07/30/2020 at 12:03 AM. FINDINGS: SUPPORT DEVICES: There has been placement of endotracheal tube with tip approximately 1 cm above the level the mahesh. HEART: The cardiac silhouette is normal in size. LUNGS/PLEURA: Diffuse bilateral pulmonary opacities have not significantly changed. No pneumothorax i s visualized. ADDITIONAL FINDINGS: No additional acute findings. IMPRESSION: 1. Placement of endotracheal tube with tip approximately 1 cm above the level the mahesh. 2. Stable appearance of bilateral pulmonary opacities. Signer Name: Charity Arnold MD Signed: 07/31/2020 9:49 AM Workstation Name: [id number]
--- NOTE | 2020-07-31 10:27 | XRay Report ---
ABDOMEN 1 VIEW(S) INDICATION / CLINICAL INFORMATION: NGT placement. COMPARISON: None available. FINDINGS: TUBES / LINES: NG tube tip at the distal stomach. BOWEL GAS PATTERN: Moderate scattered gas predominantly involving the stomach and colon. No evidence of obstruction. ADDITIONAL FINDINGS: No significant additional findings. IMPRESSION: Satisfactory NG tube placement. Signer Name: Michele Schaffer MD Signed: 07/31/2020 10:22 AM Workstation Name: [id number]
--- NOTE | 2020-07-31 10:39 | Progress Note ---
Assessment and Plan - Patient Problems (1) Acute respiratory failure with hypoxia Current Visit: Yes Status: Acute (2) COVID-19 Current Visit: Yes Status: Acute (3) Hypoxia Current Visit: Yes Status: Acute (4) Pneumonia Current Visit: Yes Status: Acute (5) Agitation Current Visit: Yes Status: Acute (6) Prerenal azotemia Current Visit: Yes Status: Acute Subjective Interval history: events noted. Patient with worsening mental status desaturation requiring mech ventilation. Pt presently intubated on vent Objective Vital Signs - 12hr 07/30/20 07/30/20 07/30/20 22:45 23:00 23:05 Temperature Pulse Rate 101 H 99 H 96 H Pulse Rate [ Apical] Respiratory 26 H 25 H 24 Rate Blood Pressure 129/89 122/93 122/93 O2 Sat by Pulse 94 97 98 Oximetry 07/30/20 07/30/20 07/30/20 23:15 23:20 23:30 Temperature Pulse Rate 96 H 94 H 92 H Pulse Rate [ Apical] Respiratory 22 24 24 Rate Blood Pressure 135/96 135/96 142/95 O2 Sat by Pulse 94 97 95 Oximetry 07/30/20 07/30/20 07/31/20 23:43 23:45 00:00 Temperature 98.8 F Pulse Rate 93 H 91 H Pulse Rate [ 93 H Apical] Respiratory 25 H 26 H Rate Blood Pressure 122/90 125/87 O2 Sat by Pulse 98 96 Oximetry 07/31/20 07/31/20 07/31/20 00:15 00:30 00:45 Temperature Pulse Rate 90 93 H 87 Pulse Rate [ Apical] Respiratory 22 24 25 H Rate Blood Pressure 136/94 129/93 128/85 O2 Sat by Pulse 93 96 94 Oximetry 07/31/20 07/31/20 07/31/20 01:00 01:15 01:30 Temperature Pulse Rate 92 H 94 H 94 H Pulse Rate [ Apical] Respiratory 23 24 26 H Rate Blood Pressure 128/87 136/95 146/92 O2 Sat by Pulse 94 96 94 Oximetry 07/31/20 07/31/20 07/31/20 01:45 02:00 02:15 Temperature Pulse Rate 87 97 H 95 H Pulse Rate [ Apical] Respiratory 19 22 26 H Rate Blood Pressure 158/100 131/92 122/88 O2 Sat by Pulse 92 94 92 Oximetry 07/31/20 07/31/2021 02:30 02:45 03:00 Temperature Pulse Rate 93 H 89 88 Pulse Rate [ Apical] Respiratory 26 H 25 H 24 Rate Blood Pressure 125/91 130/89 122/90 O2 Sat by Pulse 90 93 91 Oximetry 07/31/20 07/31/20 07/31/20 03:07 03:15 03:29 Temperature 98.0 F Pulse Rate 90 85 Pulse Rate [ Apical] Respiratory 24 25 H Rate Blood Pressure 122/90 124/89 O2 Sat by Pulse 94 92 Oximetry 07/31/20 07/31/20 07/31/20 03:30 03:45 04:00 Temperature Pulse Rate 86 97 H 99 H Pulse Rate [ 97 H Apical] Respiratory 19 31 H 37 H Rate Blood Pressure 126/93 126/93 120/89 O2 Sat by Pulse 95 88 95 Oximetry 07/31/20 07/31/20 07/31/20 04:15 04:30 04:45 Temperature Pulse Rate 94 H 98 H 90 Pulse Rate [ Apical] Respiratory 34 H 41 H 23 Rate Blood Pressure 124/91 131/81 136/90 O2 Sat by Pulse 92 84 90 Oximetry 07/31/20 07/31/20 07/31/20 05:00 05:15 05:30 Temperature Pulse Rate 89 92 H 90 Pulse Rate [ Apical] Respiratory 28 H 29 H 25 H Rate Blood Pressure 125/92 133/95 128/92 O2 Sat by Pulse 94 94 94 Oximetry 07/31/20 07/31/20 07/31/20 05:45 06:00 07:28 Temperature Pulse Rate 87 90 115 H Pulse Rate [ Apical] Respiratory 25 H 25 H 36 H Rate Blood Pressure 137/98 126/95 122/64 O2 Sat by Pulse 96 96 88 Oximetry Constitutional: other (orally intubated on vent) Eyes: non-icteric ENT: oropharynx moist Neck: supple Ascultation: Bilateral: diminished breath sounds, rhonchi Cardiovascular: regular rate and rhythm, other (tachycardia) Gastrointestinal: normoactive bowel sounds, soft, non-tender, non-distended Integumentary: normal Extremities: no cyanosis Neurologic: normal mental status, non-focal exam CBC and BMP: 07/18/20 04:31 07/27/20 19:45 ABG, PT/INR, D-dimer: PT/INR, D-dimer PT 13.7 Sec. (12.2-14.9) 07/18/20 04:31 INR 1.06 (0.87-1.13) 07/18/20 04:31 D-Dimer > 67736 ng/mlDDU (0-234) H 07/26/20 10:07 Abnormal lab findings: Abnormal Labs 07/17/20 07/17/20 07/17/20 17:30 17:30 22:48 MCH MCHC 35 H RDW Lymph % (Auto) 10.5 L Lymph # (Auto) 0.7 L Seg Neutrophils % 85.3 H Lymphocytes % (Manual) Seg Neutrophils # Man Lymphocytes # (Manual) D-Dimer 314.21 H Sodium Chloride Carbon Dioxide BUN 1 L Glucose 154 H POC Glucose Calcium Magnesium Ferritin Lactate Dehydrogenase Total Creatine Kinase CK-MB (CK-2) C-Reactive Protein Albumin Coronavirus (PCR) SARS-CoV-2 IgG Ab 07/17/20 07/17/20 07/18/20 22:48 22:48 04:31 MCH 33 H MCHC 35 H RDW 13.1 L Lymph % (Auto) Lymph # (Auto) Seg Neutrophils % Lymphocytes % (Manual) 5.0 L Seg Neutrophils # Man 8.1 H Lymphocytes # (Manual) 0.4 L D-Dimer Sodium Chloride Carbon Dioxide BUN Glucose 124 H POC Glucose Calcium Magnesium Ferritin 889.3 H Lactate Dehydrogenase 832 H Total Creatine Kinase CK-MB (CK-2) C-Reactive Protein 17.70 H Albumin Coronavirus (PCR) SARS-CoV-2 IgG Ab 07/18/20 07/18/20 07/18/20 04:31 08:50 18:48 MCH MCHC RDW Lymph % (Auto) Lymph # (Auto) Seg Neutrophils % Lymphocytes % (Manual) Seg Neutrophils # Man Lymphocytes # (Manual) D-Dimer 275.27 H Sodium Chloride Carbon Dioxide 31 H D BUN 23 H Glucose 143 H POC Glucose Calcium Magnesium Ferritin Lactate Dehydrogenase Total Creatine Kinase CK-MB (CK-2) C-Reactive Protein Albumin Coronavirus (PCR) Positive A SARS-CoV-2 IgG Ab 07/18/20 07/18/20 07/20/20 18:48 18:48 08:56 MCH MCHC RDW Lymph % (Auto) Lymph # (Auto) Seg Neutrophils % Lymphocytes % (Manual) Seg Neutrophils # Man Lymphocytes # (Manual) D-Dimer Sodium Chloride Carbon Dioxide BUN 22 H Glucose 219 H POC Glucose Calcium Magnesium Ferritin 1164.0 H Lactate Dehydrogenase 560 H 739 H Total Creatine Kinase CK-MB (CK-2) C-Reactive Protein 18.00 H 17.50 H Albumin 3.0 L Coronavirus (PCR) SARS-CoV-2 IgG Ab 07/20/20 07/20/20 07/21/20 08:56 08:56 05:24 MCH MCHC RDW Lymph % (Auto) Lymph # (Auto) Seg Neutrophils % Lymphocytes % (Manual) Seg Neutrophils # Man Lymphocytes # (Manual) D-Dimer 9523.70 H Sodium Chloride Carbon Dioxide BUN Glucose POC Glucose Calcium Magnesium Ferritin 1581.0 H Lactate Dehydrogenase Total Creatine Kinase CK-MB (CK-2) C-Reactive Protein Albumin Coronavirus (PCR) SARS-CoV-2 IgG Ab Reactive A 07/22/20 07/24/20 07/26/20 04:31 13:26 10:07 MCH MCHC RDW Lymph % (Auto) Lymph # (Auto) Seg Neutrophils % Lymphocytes % (Manual) Seg Neutrophils # Man Lymphocytes # (Manual) D-Dimer > 57243 H Sodium 146 H Chloride Carbon Dioxide 32 H BUN 28 H 26 H Glucose 144 H 116 H POC Glucose Calcium 8.3 L Magnesium Ferritin Lactate Dehydrogenase Total Creatine Kinase CK-MB (CK-2) C-Reactive Protein Albumin 3.3 L Coronavirus (PCR) SARS-CoV-2 IgG Ab 07/26/20 07/26/20 07/27/20 10:07 10:07 19:45 MCH MCHC RDW Lymph % (Auto) Lymph # (Auto) Seg Neutrophils % Lymphocytes % (Manual) Seg Neutrophils # Man Lymphocytes # (Manual) D-Dimer Sodium Chloride 97.4 L Carbon Dioxide 33 H BUN 27 H Glucose 175 H POC Glucose Calcium Magnesium Ferritin 1079.0 H Lactate Dehydrogenase 708 H Total Creatine Kinase CK-MB (CK-2) C-Reactive Protein 6.10 H Albumin Coronavirus (PCR) SARS-CoV-2 IgG Ab 07/29/20 07/30/20 07/30/20 02:09 10:33 11:54 MCH MCHC RDW Lymph % (Auto) Lymph # (Auto) Seg Neutrophils % Lymphocytes % (Manual) Seg Neutrophils # Man Lymphocytes # (Manual) D-Dimer Sodium Chloride Carbon Dioxide BUN Glucose POC Glucose 183 H Calcium Magnesium 3.00 H Ferritin Lactate Dehydrogenase Total Creatine Kinase 174 H CK-MB (CK-2) 4.5 H C-Reactive Protein Albumin Coronavirus (PCR) SARS-CoV-2 IgG Ab 07/30/20 07/30/20 17:30 23:08 MCH MCHC RDW Lymph % (Auto) Lymph # (Auto) Seg Neutrophils % Lymphocytes % (Manual) Seg Neutrophils # Man Lymphocytes # (Manual) D-Dimer Sodium Chloride Carbon Dioxide BUN Glucose POC Glucose 199 H 194 H Calcium Magnesium Ferritin Lactate Dehydrogenase Total Creatine Kinase CK-MB (CK-2) C-Reactive Protein Albumin Coronavirus (PCR) SARS-CoV-2 IgG Ab Chest x-ray: report reviewed, image reviewed
[2020-07-31] MEDS: dexAMETHasone 4 MG/ML VIAL IV SCH (10:45)
[2020-07-31] MEDS ORDERED: MINERAL OIL/PETROLATUM, WHITE OPHTH OINT 3.5 GM OU PRN (10:55)
[2020-07-31] MEDS ORDERED: LIP THERAPY VASELINE TP PRN (11:00)
[2020-07-31 11:37] LABS: Alanine Aminotransferase 22 units/L (7-56); Albumin 3.1 g/dL (3.9-5); BUN/Creatinine Ratio 53; Blood Urea Nitrogen 48 mg/dL (9-20); Calcium 8.9 mg/dL (8.4-10.2); Hemolysis Index 18
[2020-07-31] MEDS: fentaNYL DRIP Premix 2,000 MCG/100 ML BAG IV SCH ×2 (12:11→16:35)
[2020-07-31] MEDS ORDERED: SODIUM BICARBONATE 325 MG TAB FEEDTUBE PRN (12:23)
[2020-07-31] MEDS ORDERED: LIPASE 10,500/PROTEASE 25,000/AMYLASE 43,750 (UNITS) DR CAP FEEDTUBE PRN (12:23)
[2020-07-31] MEDS ORDERED: SIMPLE SYRUP 15 ML FEEDTUBE PRN ×2 (12:23)
--- NOTE | 2020-07-31 14:20 | Progress Note ---
Assessment and Plan Critical care statement The high probability OF a clinically significant sudden or life-threatening deterioration of the cardiorespiratory system and endocrine system required my full and direct attention, intervention and postoperative management. The aggregate critical care time was 40 minutes. The time is in addition to time spent performing reported procedures but includes the followin: Data review and interpretation 2: Patient assessment and monitoring of vital signs 3: Documentation 4:: Medication orders and management Assessment and Plan Patient with acute hypoxemic respiratory failure on high flow oxygen COVID-19 pneumonia, persistent hypoxemia, remains on high flow oxygen 40 L/100%/O2 sats 91+ nonrebreather, critically ill with poor prognosis, patient and family aware --Acute hypoxc respiratory failure; on high flow oxygen Current Visit: Yes Status: Acute Plan to address problem: 40 L /100% /O2 sats 95% 07/20/2020 35L/95% /O2 sat 94% 07/21/2020 40 L/100%/91 O2 sats 07/23/20 40 L/100%/97 O2 sats 07/24/2020 Mild improvement, titrate O2 sats to more than 90% Due to the underlying COVID-19 pneumonia. Treat the underlying cause Prone position as tolerated Home O2 evaluation Hypernatremia increase water intake Acute hypoxic respiratory failure -rapid response 07/24/2020 Patient has removed the oxygen, and went into severe hypoxemia Code met was called, respiratory be adjusted oxygen settings Patient feels better, updated --COVID-19 positive Continue contact and droplet isolation, IV dexamethasone for total 4/9 days IV remdesivir per ID 2/4 Patient is already on high flow oxygen Prone position as tolerated, inflammatory markers Anticoagulation per protocol, and supportive care Patient is critically ill, poor prognosis SARS to Covid IgG antibodies positive, no indication for convalescent --Elevated D-dimers; CTA chest negative for PE, mild pulmonary edema, I will add Lasix 40 mg IV 1 dose now, and daily thereafter lower extremity venous Doppler, negative for DVT -- Pneumonia Current Visit: Yes Status: Acute Plan to address problem: Continue empiric IV antibiotics. Procalcitonin is elevated In view of patient's pneumonia and severe hypoxia Elevated D-dimers will get CTA chest to rule out PE -- DVT prophylaxis Current Visit: Yes Status: Acute Plan to address problem: Patient placed on subcutaneous Lovenox. -- Full code status Current Visit: Yes Status: Acute Plan to address problem: Patient is a full code. Subjective Date of service: 07/31/20 Principal diagnosis: Acute respiratory failure with hypoxia, Covid pneumonia Interval history: History Interval history: I have seen and examined the patient at the bedside Isolation precautions PPE protocol strictly followed Patient remains critically ill Requiring high flow oxygen Shortness of breath Vital signs reviewed Patient continues to be on high levels of oxygen Closely monitor the patient and adjust management as needed Follow CTA chest, and inflammatory markers Consults recommendations noted and appreciated Plan of care reviewed with the patient and his nurse 07/20; patient is severely hypoxemic, on high flow oxygen 40 L/100%/O2 sats 95 Elevated D-dimers, patient is severely hypoxemic, will check CTA chest to rule out PE Also consider lower extremity venous Doppler to rule out DVT 07/21: Patient remains on high flow oxygen however mild improvement from 40 L to 35 l Tolerating prone position, continue steroids remdesivir CTA chest negative for PE, lower extremity venous Doppler negative for DVT Consults recommendations noted and appreciated Poor prognosis, patient is aware 07/22/2020; patient feels slightly better remains on high flow oxygen however lower than yesterday 35 L/95% /O2 sat 94% 07/21/2020 advised the patient to rest in prone position as tolerated Home oxygen evaluation 07/23/2020; remains on high flow oxygen, continue steroids remdesivir, prone position and comfort care Patient is critically ill with very poor prognosis and prolonged hypoxemia on high flow oxygen Plan of care reviewed with the patient and his nurse 07/24/2020; patient was severely hypoxemic rapid response called oxygen settings adjusted patient is currently better, requiring high flow oxygen right from the day he was admitted, poor prognosis, discussed with patient's 07/25/2020; patient remains on high flow oxygen in mild distress, overall prognosis poor I discussed with , and family friend physician extensively yesterday Poor prognosis continue current management 07/26/2020; patient remains on high flow oxygen 40 L/100%/95% O2 sat +100% nonrebreather Patient is critically ill, poor prognosis, ID pulmonary following 07/27/2020; patient remains on high flow oxygen 40 L/100%/[address] 100% nonrebreather Very poor prognosis, patient and family aware Pulmonary recommendations noted and appreciated 07/28/2020; patient remains critically ill, remains dependent on high flow oxygen 40 L +100% nonrebreather Very poor prognosis. 07/29/2020 Remains critically ill On high flow oxygen 07/30/2020 on high flow oxygen 07/31/2020 critically ill on high flow oxygen Objective - Constitutional Vitals: Vital Signs - 12hr 07/31/20 07/31/20 07/31/20 02:30 02:45 03:00 Temperature Pulse Rate 93 H 89 88 Pulse Rate [ Apical] Respiratory 26 H 25 H 24 Rate Blood Pressure 125/91 130/89 122/90 O2 Sat by Pulse 90 93 91 Oximetry 07/31/20 07/31/20 07/31/20 03:07 03:15 03:29 Temperature 98.0 F Pulse Rate 90 85 Pulse Rate [ Apical] Respiratory 24 25 H Rate Blood Pressure 122/90 124/89 O2 Sat by Pulse 94 92 Oximetry 07/31/20 07/31/20 07/31/20 03:30 03:45 04:00 Temperature Pulse Rate 86 97 H 99 H Pulse Rate [ 97 H Apical] Respiratory 19 31 H 37 H Rate Blood Pressure 126/93 126/93 120/89 O2 Sat by Pulse 95 88 95 Oximetry 07/31/20 07/31/20 07/31/20 04:15 04:30 04:45 Temperature Pulse Rate 94 H 98 H 90 Pulse Rate [ Apical] Respiratory 34 H 41 H 23 Rate Blood Pressure 124/91 131/81 136/90 O2 Sat by Pulse 92 84 90 Oximetry 07/31/20 07/31/20 07/31/20 05:00 05:15 05:30 Temperature Pulse Rate 89 92 H 90 Pulse Rate [ Apical] Respiratory 28 H 29 H 25 H Rate Blood Pressure 125/92 133/95 128/92 O2 Sat by Pulse 94 94 94 Oximetry 07/31/20 07/31/20 07/31/20 05:45 06:00 06:15 Temperature Pulse Rate 87 90 90 Pulse Rate [ Apical] Respiratory 25 H 25 H 21 Rate Blood Pressure 137/98 126/95 127/100 O2 Sat by Pulse 96 96 92 Oximetry 07/31/20 07/31/20 07/31/20 06:30 06:45 07:00 Temperature Pulse Rate 93 H 101 H 103 H Pulse Rate [ Apical] Respiratory 24 39 H 27 H Rate Blood Pressure 135/95 137/90 137/90 O2 Sat by Pulse 97 90 88 Oximetry 07/31/20 07/31/20 07/31/20 07:15 07:28 07:30 Temperature Pulse Rate 100 H 115 H 115 H Pulse Rate [ Apical] Respiratory 55 H 36 H 34 H Rate Blood Pressure 122/64 122/64 145/103 O2 Sat by Pulse 76 L 88 86 Oximetry 07/31/20 07/31/20 07/31/20 07:45 08:00 08:15 Temperature Pulse Rate 114 H 105 H 100 H Pulse Rate [ 97 H Apical] Respiratory 50 H 34 H 26 H Rate Blood Pressure 161/104 139/96 141/96 O2 Sat by Pulse 83 L 86 83 L Oximetry 07/31/20 07/31/20 07/31/20 08:30 08:45 09:01 Temperature Pulse Rate 99 H 104 H 78 Pulse Rate [ Apical] Respiratory 29 H 44 H 23 Rate Blood Pressure 125/87 142/85 148/107 O2 Sat by Pulse 84 86 85 Oximetry 07/31/20 07/31/20 07/31/20 09:15 09:31 09:45 Temperature Pulse Rate 109 H 109 H 108 H Pulse Rate [ Apical] Respiratory 28 H 30 H 31 H Rate Blood Pressure 138/108 118/79 112/83 O2 Sat by Pulse 87 87 90 Oximetry 07/31/20 07/31/20 07/31/20 10:00 10:15 10:31 Temperature Pulse Rate 105 H 106 H 110 H Pulse Rate [ Apical] Respiratory 31 H 30 H 31 H Rate Blood Pressure 123/83 120/83 107/80 O2 Sat by Pulse 92 93 94 Oximetry 07/31/20 07/31/20 07/31/20 10:45 11:01 11:15 Temperature Pulse Rate 110 H 113 H 114 H Pulse Rate [ Apical] Respiratory 31 H 31 H 24 Rate Blood Pressure 136/92 141/90 133/86 O2 Sat by Pulse 94 89 91 Oximetry General appearance: Present: severe distress, well-nourished - EENT Eyes: PERRL, EOM intact ENT: hearing intact, clear oral mucosa Ears: bilateral: normal - Neck Neck: supple, normal ROM - Respiratory Respiratory effort: normal Respiratory: bilateral: CTA - Breasts Breasts: normal - Cardiovascular Heart rate: 78 Rhythm: regular Heart Sounds: Present: S1 & S2. Absent: gallop, rub Extremities: pulses intact, No edema, normal color, Full ROM - Gastrointestinal General gastrointestinal: Present: soft, non-tender, non-distended, normal bowel sounds - Genitourinary Male genitourinary: normal - Integumentary Integumentary: clear, warm, dry - Musculoskeletal Musculoskeletal: 1, strength equal bilaterally - Neurologic Neurologic: moves all extremities - Psychiatric Psychiatric: memory intact, appropriate mood/affect, intact judgment & insight - Labs CBC & Chem 7: 08/06/20 08:59 08/06/20 08:59 Labs: Abnormal lab results 07/30/20 07/30/20 07/31/20 Range/Units 17:30 23:08 11:04 POC ABG pCO2 (32.0-48.0) mmHg POC ABG pO2 (83-108) mmHg ABG Oxyhemoglobin (94-98) ABG Chloride (98-107) mmol/L ABG Glucose (65-95) mg/dL Sodium 151 H D (137-145) mmol/L Chloride 109.2 H (98-107) mmol/L Carbon Dioxide 32 H (22-30) mmol/L BUN 48 H (9-20) mg/dL Glucose 165 H (75-100) mg/dL POC Glucose 199 H 194 H (70-105) mg/dL Alkaline Phosphatase 168 H (35-129) units/L Albumin 3.1 L (3.9-5) g/dL Arterial Blood Glucose (65-95) mg/dL 07/31/20 07/31/20 Range/Units 11:18 11:23 POC ABG pCO2 56.6 H (32.0-48.0) mmHg POC ABG pO2 73.1 L (83-108) mmHg ABG Oxyhemoglobin 92.1 L (94-98) ABG Chloride 108.0 H (98-107) mmol/L ABG Glucose 169 H (65-95) mg/dL Sodium (137-145) mmol/L Chloride (98-107) mmol/L Carbon Dioxide (22-30) mmol/L BUN (9-20) mg/dL Glucose (75-100) mg/dL POC Glucose 156 H (70-105) mg/dL Alkaline Phosphatase (35-129) units/L Albumin (3.9-5) g/dL Arterial Blood Glucose 169 H (65-95) mg/dL HEART Score - HEART Score Troponin: Troponin T 0.018 ng/mL (0.00-0.029) 07/30/20 10:33
[2020-07-31] MEDS: DEXAMETHASONE 4 MG TAB PO SCH (19:39)
[2020-07-31] MEDS ORDERED: EPINEPHrine 1 MG/10 ML SYRINGE ONE (20:00)
[2020-07-31] MEDS ORDERED: SODIUM BICARB 8.4% 50 MEQ/50 ML SYRINGE IV ONE (20:00)
[2020-07-31] MEDS: D5W/0.9% NACL 1,000 ML IV SCH (20:26)
--- NOTE | 2020-07-31 21:06 | Event Note ---
Date: 07/31/20 ADI CÁRDENAS called. I presented to the bedside and the patient was found to be in VF ventricular fibrillation arrest. Patient treated" with ACLS protocol. With eventual return of perfusing cardiac rhythm. 60 minutes of critical care time dedicated to patient care.
[2020-08-01 00:08] LABS: Hematocrit 41.5 % (35.5-45.6); Hemoglobin 13.6 gm/dl (11.8-15.2); Mean Corpuscular HGB Conc 33 % (32-34); Mean Corpuscular Volume 95 fl (84-94); Platelet Count 144 K/mm3 (140-440); Red Blood Count 4.36 M/mm3 (3.65-5.03)
[2020-08-01] MEDS: traZODone 50 MG TAB PO SCH ×2 (01:03→21:23)
[2020-08-01] MEDS: ENOXAPARIN 40 MG/0.4 ML INJ SUB-Q SCH ×2 (01:03→21:23)
--- NOTE | 2020-08-01 04:17 | XRay Report ---
CHEST 1 VIEW INDICATION / CLINICAL INFORMATION: follow up respiratory failure. COMPARISON: 07/31/2020 FINDINGS: SUPPORT DEVICES: Stable, satisfactory device positioning. Left upper extremity PICC line has been juan princess since the last chest radiograph with tip projecting in the expected location of the SVC. HEART / MEDIASTINUM: No significant abnormality. LUNGS / PLEURA: Previously noted bilateral interstitial pulmonary opacities persist but do appear to be slightly improved. No pneumothorax. ADDITIONAL FINDINGS: No significant additional findings. IMPRESSION: 1. Slight improvement in bilateral pulmonary opacities. Signer Name: Shelly Vasquez MD Signed: 08/01/2020 4:12 AM Workstation Name: [id number]
[2020-08-01] MEDS: FUROSEMIDE 40 MG/4 ML INJ IV SCH (05:42)
[2020-08-01] MEDS: fentaNYL DRIP Premix 2,000 MCG/100 ML BAG IV SCH ×2 (05:52→17:23)
[2020-08-01] MEDS: ACETAMINOPHEN 325 MG TAB PO PRN ×2 (08:42→14:29)
[2020-08-01 08:56] LABS: BUN/Creatinine Ratio 41; Blood Urea Nitrogen 49 mg/dL (9-20); Calcium 7.2 mg/dL (8.4-10.2); Hemolysis Index 4
[2020-08-01] MEDS: FAMOTIDINE 20 MG TAB PO SCH ×2 (09:35→21:23)
[2020-08-01] MEDS: dexAMETHasone 4 MG/ML VIAL IV SCH (09:35)
[2020-08-01] MEDS ORDERED: FREE WATER PO SCH (10:00)
--- NOTE | 2020-08-01 10:39 | Progress Note ---
Assessment and Plan 60 y/o male with chest discomfort, shortness of breath and abnormal CXR, COVID Positive 08/01/20: Overall prognosis here is very very guarded to poor. Will consider proning patient later today if not able to wean FiO2 any further this afternoon. Per CM, wants to come see patient which is very reasonable. Will continue steroids despite completing 10 days of this. 07/29/20: Supportive measures. Proning and wean as tolerated. 07/28/20: No new recommendations as of right now. When beds become available will move patient down stairs for closer monitoring. 07/27/20: Difficult situation. Patient appears to be not responding to any therapy. Steroids finished yesterday. Given the degree of inflammation will restart steroids for at least another 72-96 hours. In no improvement will stop. Not much else to do medical therapy [place]. Continue to keep patient net negative. Still remains high risk for intubation and if intubated given his current response to steroids, very high mortality. 07/26/20: No new recs for today. Patient really needs to try to prone as much as possible during the day and sleep prone at night. He remains a high risk for cardiac arrest and intubation. 07/25/20: very high risk for cardiac arrest from hypoxemia, but no available beds in ICU. Given COVID status, ideally would not like to use bipap but may have to in the event of continued desats. While proning does better and does not need the mask along with HFNC. Encourage to prone as long as possible. 1. Continue steroids for 10 days. 2. Continue Remdesivir. Not a candidate for Convalescent Plasma 3. Please ask patient prone as tolerated during the day and sleep prone at night. Currently doing and tolerating 4. Agree with daily lasix but will need labs to monitor renal function and electrolytes. Needs labs for today. 5. Guarded prognosis to poor now with increasing oxygen requirement. May require intubation and high risk for cardiac arrest. CCT 31 Subjective Date of service: 08/01/20 Interval history: Emergent intubation on yesterday. Then had cardiac arrest last night. Vfib with ROSC. Not on any pressors currently and sedated on Fent. Per nursing will move extremities on 1. Objective Vital Signs - 12hr 07/31/20 07/31/20 07/31/20 22:45 23:01 23:15 Temperature Pulse Rate 125 H 127 H 128 H Pulse Rate [ Apical] Respiratory Rate Blood Pressure 129/78 130/74 135/84 O2 Sat by Pulse 92 91 95 Oximetry 07/31/20 07/31/20 07/31/20 23:27 23:31 23:45 Temperature Pulse Rate 125 H 124 H 124 H Pulse Rate [ Apical] Respiratory 26 H Rate Blood Pressure 120/77 140/77 120/85 O2 Sat by Pulse 97 93 96 Oximetry 07/31/20 08/01/20 08/01/20 23:59 00:00 00:01 Temperature 98.9 F Pulse Rate 125 H 124 H Pulse Rate [ 125 H Apical] Respiratory 30 H Rate Blood Pressure 130/80 O2 Sat by Pulse 91 91 Oximetry 08/01/20 08/01/20 08/01/20 00:15 00:31 00:45 Temperature Pulse Rate 123 H 125 H 125 H Pulse Rate [ Apical] Respiratory Rate Blood Pressure 104/80 137/82 109/85 O2 Sat by Pulse 96 90 94 Oximetry 08/01/20 08/01/20 08/01/20 01:01 01:15 01:31 Temperature Pulse Rate 121 H 123 H 124 H Pulse Rate [ Apical] Respiratory 29 H 30 H Rate Blood Pressure 128/77 139/80 141/78 O2 Sat by Pulse 88 94 88 Oximetry 08/01/20 08/01/20 08/01/20 01:45 02:01 02:15 Temperature Pulse Rate 123 H 124 H 122 H Pulse Rate [ Apical] Respiratory 29 H 32 H 31 H Rate Blood Pressure 145/81 149/82 141/75 O2 Sat by Pulse 95 89 95 Oximetry 08/01/20 08/01/20 08/01/20 02:31 02:45 03:01 Temperature Pulse Rate 129 H 130 H 129 H Pulse Rate [ Apical] Respiratory 38 H 30 H 21 Rate Blood Pressure 150/82 132/78 136/73 O2 Sat by Pulse 88 97 91 Oximetry 08/01/20 08/01/20 08/01/20 03:15 03:31 03:45 Temperature Pulse Rate 130 H 130 H 129 H Pulse Rate [ Apical] Respiratory 14 12 13 Rate Blood Pressure 130/81 105/74 119/77 O2 Sat by Pulse 98 92 99 Oximetry 08/01/20 08/01/20 08/01/20 03:46 04:00 04:01 Temperature 100.4 F H Pulse Rate 128 H 132 H 126 H Pulse Rate [ 132 H Apical] Respiratory 30 H 21 Rate Blood Pressure 131/78 139/93 O2 Sat by Pulse 96 99 94 Oximetry 08/01/20 08/01/20 08/01/20 04:15 04:31 04:45 Temperature Pulse Rate 127 H 126 H 126 H Pulse Rate [ Apical] Respiratory 30 H 30 H 28 H Rate Blood Pressure 117/79 106/76 117/73 O2 Sat by Pulse 99 93 99 Oximetry 08/01/20 08/01/20 08/01/20 05:06 05:16 05:30 Temperature Pulse Rate 127 H 125 H 126 H Pulse Rate [ Apical] Respiratory 26 H 30 H 24 Rate Blood Pressure 120/74 123/72 O2 Sat by Pulse 91 96 Oximetry 08/01/20 08/01/20 08/01/20 05:46 06:00 06:16 Temperature Pulse Rate 120 H 126 H 123 H Pulse Rate [ Apical] Respiratory 13 13 14 Rate Blood Pressure 129/73 115/79 108/79 O2 Sat by Pulse 93 96 92 Oximetry 08/01/20 08/01/20 08/01/20 06:30 06:46 07:00 Temperature Pulse Rate 123 H 123 H 128 H Pulse Rate [ Apical] Respiratory 15 18 16 Rate Blood Pressure 119/74 130/85 107/83 O2 Sat by Pulse 96 93 98 Oximetry 08/01/20 08/01/20 08/01/20 07:15 07:29 07:30 Temperature Pulse Rate 124 H 125 H 126 H Pulse Rate [ Apical] Respiratory 18 32 H Rate Blood Pressure 109/82 130/77 130/77 O2 Sat by Pulse 98 99 99 Oximetry 08/01/20 08/01/20 08/01/20 07:46 08:00 08:16 Temperature 101.5 F H Pulse Rate 124 H 125 H 124 H Pulse Rate [ 127 H Apical] Respiratory 18 23 22 Rate Blood Pressure 126/84 113/77 118/76 O2 Sat by Pulse 95 98 91 Oximetry 08/01/20 08/01/20 08/01/20 08:30 08:46 09:00 Temperature Pulse Rate 129 H 124 H 122 H Pulse Rate [ Apical] Respiratory 22 16 15 Rate Blood Pressure 102/84 137/78 112/82 O2 Sat by Pulse 98 91 98 Oximetry 08/01/20 08/01/2021 09:16 09:30 09:46 Temperature Pulse Rate 117 H 123 H 124 H Pulse Rate [ Apical] Respiratory 13 12 14 Rate Blood Pressure 119/83 136/82 129/78 O2 Sat by Pulse 94 98 96 Oximetry 08/01/20 10:00 Temperature Pulse Rate 121 H Pulse Rate [ Apical] Respiratory 14 Rate Blood Pressure 113/83 O2 Sat by Pulse 98 Oximetry Constitutional: other (orally intubated on vent) Eyes: non-icteric ENT: oropharynx moist Neck: supple Ascultation: Bilateral: diminished breath sounds, rhonchi Cardiovascular: regular rate and rhythm, other (tachycardia) Gastrointestinal: normoactive bowel sounds, soft, non-tender, non-distended Integumentary: normal Extremities: no cyanosis Neurologic: normal mental status, non-focal exam CBC and BMP: 07/31/20 23:55 08/01/20 08:30 ABG, PT/INR, D-dimer: ABG ABG pH 7.425 (7.320-7.450) 08/01/20 03:47 POC ABG pCO2 49.8 mmHg (32.0-48.0) H 08/01/20 03:47 POC ABG pO2 123.4 mmHg (83-108) H 08/01/20 03:47 POC ABG HCO3 31.9 08/01/20 03:47 PT/INR, D-dimer PT 13.7 Sec. (12.2-14.9) 07/18/20 04:31 INR 1.06 (0.87-1.13) 07/18/20 04:31 D-Dimer > 08471 ng/mlDDU (0-234) H 07/26/20 10:07 Abnormal lab findings: Abnormal Labs 07/17/20 07/17/20 07/17/20 17:30 17:30 22:48 WBC MCV MCH MCHC 35 H RDW Lymph % (Auto) 10.5 L Lymph # (Auto) 0.7 L Seg Neutrophils % 85.3 H Lymphocytes % (Manual) Seg Neutrophils # Man Lymphocytes # (Manual) D-Dimer 314.21 H POC ABG pCO2 POC ABG pO2 ABG Oxyhemoglobin ABG Potassium ABG Chloride ABG Glucose Sodium Chloride Carbon Dioxide BUN 1 L Glucose 154 H POC Glucose Calcium Magnesium Ferritin Alkaline Phosphatase Lactate Dehydrogenase Total Creatine Kinase CK-MB (CK-2) C-Reactive Protein Albumin Arterial Blood Glucose Arterial Blood Ionized Calcium Coronavirus (PCR) SARS-CoV-2 IgG Ab 07/17/20 07/17/20 07/18/20 22:48 22:48 04:31 WBC MCV MCH 33 H MCHC 35 H RDW 13.1 L Lymph % (Auto) Lymph # (Auto) Seg Neutrophils % Lymphocytes % (Manual) 5.0 L Seg Neutrophils # Man 8.1 H Lymphocytes # (Manual) 0.4 L D-Dimer POC ABG pCO2 POC ABG pO2 ABG Oxyhemoglobin ABG Potassium ABG Chloride ABG Glucose Sodium Chloride Carbon Dioxide BUN Glucose 124 H POC Glucose Calcium Magnesium Ferritin 889.3 H Alkaline Phosphatase Lactate Dehydrogenase 832 H Total Creatine Kinase CK-MB (CK-2) C-Reactive Protein 17.70 H Albumin Arterial Blood Glucose Arterial Blood Ionized Calcium Coronavirus (PCR) SARS-CoV-2 IgG Ab 07/18/20 07/18/20 07/18/20 04:31 08:50 18:48 WBC MCV MCH MCHC RDW Lymph % (Auto) Lymph # (Auto) Seg Neutrophils % Lymphocytes % (Manual) Seg Neutrophils # Man Lymphocytes # (Manual) D-Dimer 275.27 H POC ABG pCO2 POC ABG pO2 ABG Oxyhemoglobin ABG Potassium ABG Chloride ABG Glucose Sodium Chloride Carbon Dioxide 31 H D BUN 23 H Glucose 143 H POC Glucose Calcium Magnesium Ferritin Alkaline Phosphatase Lactate Dehydrogenase Total Creatine Kinase CK-MB (CK-2) C-Reactive Protein Albumin Arterial Blood Glucose Arterial Blood Ionized Calcium Coronavirus (PCR) Positive A SARS-CoV-2 IgG Ab 07/18/20 07/18/20 07/20/20 18:48 18:48 08:56 WBC MCV MCH MCHC RDW Lymph % (Auto) Lymph # (Auto) Seg Neutrophils % Lymphocytes % (Manual) Seg Neutrophils # Man Lymphocytes # (Manual) D-Dimer POC ABG pCO2 POC ABG pO2 ABG Oxyhemoglobin ABG Potassium ABG Chloride ABG Glucose Sodium Chloride Carbon Dioxide BUN 22 H Glucose 219 H POC Glucose Calcium Magnesium Ferritin 1164.0 H Alkaline Phosphatase Lactate Dehydrogenase 560 H 739 H Total Creatine Kinase CK-MB (CK-2) C-Reactive Protein 18.00 H 17.50 H Albumin 3.0 L Arterial Blood Glucose Arterial Blood Ionized Calcium Coronavirus (PCR) SARS-CoV-2 IgG Ab 07/20/20 07/20/20 07/21/20 08:56 08:56 05:24 WBC MCV MCH MCHC RDW Lymph % (Auto) Lymph # (Auto) Seg Neutrophils % Lymphocytes % (Manual) Seg Neutrophils # Man Lymphocytes # (Manual) D-Dimer 9523.70 H POC ABG pCO2 POC ABG pO2 ABG Oxyhemoglobin ABG Potassium ABG Chloride ABG Glucose Sodium Chloride Carbon Dioxide BUN Glucose POC Glucose Calcium Magnesium Ferritin 1581.0 H Alkaline Phosphatase Lactate Dehydrogenase Total Creatine Kinase CK-MB (CK-2) C-Reactive Protein Albumin Arterial Blood Glucose Arterial Blood Ionized Calcium Coronavirus (PCR) SARS-CoV-2 IgG Ab Reactive A 07/22/20 07/24/20 07/26/20 04:31 13:26 10:07 WBC MCV MCH MCHC RDW Lymph % (Auto) Lymph # (Auto) Seg Neutrophils % Lymphocytes % (Manual) Seg Neutrophils # Man Lymphocytes # (Manual) D-Dimer > 52942 H POC ABG pCO2 POC ABG pO2 ABG Oxyhemoglobin ABG Potassium ABG Chloride ABG Glucose Sodium 146 H Chloride Carbon Dioxide 32 H BUN 28 H 26 H Glucose 144 H 116 H POC Glucose Calcium 8.3 L Magnesium Ferritin Alkaline Phosphatase Lactate Dehydrogenase Total Creatine Kinase CK-MB (CK-2) C-Reactive Protein Albumin 3.3 L Arterial Blood Glucose Arterial Blood Ionized Calcium Coronavirus (PCR) SARS-CoV-2 IgG Ab 07/26/20 07/26/20 07/27/20 10:07 10:07 19:45 WBC MCV MCH MCHC RDW Lymph % (Auto) Lymph # (Auto) Seg Neutrophils % Lymphocytes % (Manual) Seg Neutrophils # Man Lymphocytes # (Manual) D-Dimer POC ABG pCO2 POC ABG pO2 ABG Oxyhemoglobin ABG Potassium ABG Chloride ABG Glucose Sodium Chloride 97.4 L Carbon Dioxide 33 H BUN 27 H Glucose 175 H POC Glucose Calcium Magnesium Ferritin 1079.0 H Alkaline Phosphatase Lactate Dehydrogenase 708 H Total Creatine Kinase CK-MB (CK-2) C-Reactive Protein 6.10 H Albumin Arterial Blood Glucose Arterial Blood Ionized Calcium Coronavirus (PCR) SARS-CoV-2 IgG Ab 07/29/20 07/30/20 07/30/20 02:09 10:33 11:54 WBC MCV MCH MCHC RDW Lymph % (Auto) Lymph # (Auto) Seg Neutrophils % Lymphocytes % (Manual) Seg Neutrophils # Man Lymphocytes # (Manual) D-Dimer POC ABG pCO2 POC ABG pO2 ABG Oxyhemoglobin ABG Potassium ABG Chloride ABG Glucose Sodium Chloride Carbon Dioxide BUN Glucose POC Glucose 183 H Calcium Magnesium 3.00 H Ferritin Alkaline Phosphatase Lactate Dehydrogenase Total Creatine Kinase 174 H CK-MB (CK-2) 4.5 H C-Reactive Protein Albumin Arterial Blood Glucose Arterial Blood Ionized Calcium Coronavirus (PCR) SARS-CoV-2 IgG Ab 07/30/20 07/30/20 07/31/20 17:30 23:08 11:04 WBC MCV MCH MCHC RDW Lymph % (Auto) Lymph # (Auto) Seg Neutrophils % Lymphocytes % (Manual) Seg Neutrophils # Man Lymphocytes # (Manual) D-Dimer POC ABG pCO2 POC ABG pO2 ABG Oxyhemoglobin ABG Potassium ABG Chloride ABG Glucose Sodium 151 H D Chloride 109.2 H Carbon Dioxide 32 H BUN 48 H Glucose 165 H POC Glucose 199 H 194 H Calcium Magnesium Ferritin Alkaline Phosphatase 168 H Lactate Dehydrogenase Total Creatine Kinase CK-MB (CK-2) C-Reactive Protein Albumin 3.1 L Arterial Blood Glucose Arterial Blood Ionized Calcium Coronavirus (PCR) SARS-CoV-2 IgG Ab 07/31/20 07/31/20 07/31/20 11:18 11:23 17:47 WBC MCV MCH MCHC RDW Lymph % (Auto) Lymph # (Auto) Seg Neutrophils % Lymphocytes % (Manual) Seg Neutrophils # Man Lymphocytes # (Manual) D-Dimer POC ABG pCO2 56.6 H POC ABG pO2 73.1 L ABG Oxyhemoglobin 92.1 L ABG Potassium ABG Chloride 108.0 H ABG Glucose 169 H Sodium Chloride Carbon Dioxide BUN Glucose POC Glucose 156 H 169 H Calcium Magnesium Ferritin Alkaline Phosphatase Lactate Dehydrogenase Total Creatine Kinase CK-MB (CK-2) C-Reactive Protein Albumin Arterial Blood Glucose 169 H Arterial Blood Ionized Calcium Coronavirus (PCR) SARS-CoV-2 IgG Ab 07/31/20 07/31/20 07/31/20 20:58 23:18 23:55 WBC 19.8 H MCV 95 H MCH MCHC RDW 13.0 L Lymph % (Auto) Lymph # (Auto) Seg Neutrophils % Lymphocytes % (Manual) Seg Neutrophils # Man Lymphocytes # (Manual) D-Dimer POC ABG pCO2 POC ABG pO2 ABG Oxyhemoglobin ABG Potassium ABG Chloride ABG Glucose Sodium Chloride Carbon Dioxide BUN Glucose POC Glucose 293 H 211 H Calcium Magnesium Ferritin Alkaline Phosphatase Lactate Dehydrogenase Total Creatine Kinase CK-MB (CK-2) C-Reactive Protein Albumin Arterial Blood Glucose Arterial Blood Ionized Calcium Coronavirus (PCR) SARS-CoV-2 IgG Ab 08/01/20 08/01/20 03:47 08:30 WBC MCV MCH MCHC RDW Lymph % (Auto) Lymph # (Auto) Seg Neutrophils % Lymphocytes % (Manual) Seg Neutrophils # Man Lymphocytes # (Manual) D-Dimer POC ABG pCO2 49.8 H POC ABG pO2 123.4 H ABG Oxyhemoglobin ABG Potassium 4.6 H ABG Chloride 111.0 H ABG Glucose 130 H Sodium 154 H Chloride 115.1 H Carbon Dioxide 32 H BUN 49 H Glucose 492 H POC Glucose Calcium 7.2 L D Magnesium Ferritin Alkaline Phosphatase Lactate Dehydrogenase Total Creatine Kinase CK-MB (CK-2) C-Reactive Protein Albumin Arterial Blood Glucose 130 H Arterial Blood Ionized Calcium 4.5 L Coronavirus (PCR) SARS-CoV-2 IgG Ab
[2020-08-01] MEDS: fentaNYL 100 MCG/2 ML INJ IV PRN (21:22)
[2020-08-02] MEDS: LORazepam 2 MG/ML VIAL IV PRN (00:41)
[2020-08-02] MEDS: fentaNYL DRIP Premix 2,000 MCG/100 ML BAG IV SCH ×4 (00:41→18:35)
[2020-08-02] MEDS: ACETAMINOPHEN 325 MG TAB PO PRN (01:03)
--- NOTE | 2020-08-02 05:43 | XRay Report ---
CHEST 1 VIEW INDICATION / CLINICAL INFORMATION: follow up respiratory failure. COMPARISON: 08/01/2020 FINDINGS: SUPPORT DEVICES: Stable, satisfactory device positioning. HEART / MEDIASTINUM: No significant abnormality. LUNGS / PLEURA: Bilateral pulmonary opacities persists not appreciably changed. No pneumothorax. ADDITIONAL FINDINGS: No significant additional findings. IMPRESSION: 1. Stable appearance of the chest radiograph. Signer Name: Shelly Vasquez MD Signed: 08/02/2020 5:39 AM Workstation Name: [id number]
--- NOTE | 2020-08-02 07:09 | Progress Note ---
Assessment and Plan Critical care statement The high probability OF a clinically significant sudden or life-threatening deterioration of the cardiorespiratory system and endocrine system required my full and direct attention, intervention and postoperative management. The aggregate critical care time was 40 minutes. The time is in addition to time spent performing reported procedures but includes the followin: Data review and interpretation 2: Patient assessment and monitoring of vital signs 3: Documentation 4:: Medication orders and management Assessment and Plan Patient with acute hypoxemic respiratory failure on high flow oxygen COVID-19 pneumonia, persistent hypoxemia, remains on high flow oxygen 40 L/100%/O2 sats 91+ nonrebreather, critically ill with poor prognosis, patient and family aware --SARS Covid 2 IgG antibodies positive; no indication for convalescent plasma On 07/24/2020 I spoke with patient's spouse Ms. Cecilia Suarez and a family friend who is a physician patient's condition treatment plan tests and reports Consultants recommendations and prognosis, I answered all their questions we wi ll closely monitor the patient and adjust management as needed. I also discussed with patient's nurse as well as nursing insurance licensing supervisor Critical care time 35 minutes --Acute hypoxc respiratory failure; on high flow oxygen Current Visit: Yes Status: Acute Plan to address problem: 40 L /100% /O2 sats 95% 07/20/2020 35L/95% /O2 sat 94% 07/21/2020 40 L/100%/91 O2 sats 07/23/20 40 L/100%/97 O2 sats 07/24/2020 Mild improvement, titrate O2 sats to more than 90% Due to the underlying COVID-19 pneumonia. Treat the underlying cause Prone position as tolerated Home O2 evaluation Hypernatremia increase water intake Acute hypoxic respiratory failure -rapid response 07/24/2020 Patient has removed the oxygen, and went into severe hypoxemia Code met was called, respiratory be adjusted oxygen settings Patient feels better, updated --COVID-19 positive Continue contact and droplet isolation, IV dexamethasone for total 4/9 days IV remdesivir per ID 08/25 Patient is already on high flow oxygen Prone position as tolerated, inflammatory markers Anticoagulation per protocol, and supportive care Patient is critically ill, poor prognosis SARS to Covid IgG antibodies positive, no indication for convalescent --Elevated D-dimers; CTA chest negative for PE, mild pulmonary edema, I will add Lasix 40 mg IV 1 dose now, and daily thereafter lower extremity venous Doppler, negative for DVT -- Pneumonia Current Visit: Yes Status: Acute Plan to address problem: Continue empiric IV antibiotics. Procalcitonin is elevated In view of patient's pneumonia and severe hypoxia Elevated D-dimers will get CTA chest to rule out PE -- DVT prophylaxis Current Visit: Yes Status: Acute Plan to address problem: Patient placed on subcutaneous Lovenox. -- Full code status Current Visit: Yes Status: Acute Plan to address problem: Patient is a full code. Subjective Date of service: 08/01/20 Principal diagnosis: Acute respiratory failure with hypoxia, Covid pneumonia Interval history: History Interval history: I have seen and examined the patient at the bedside Isolation precautions PPE protocol strictly followed Patient remains critically ill Requiring high flow oxygen Shortness of breath Vital signs reviewed Patient continues to be on high levels of oxygen Closely monitor the patient and adjust management as needed Follow CTA chest, and inflammatory markers Consults recommendations noted and appreciated Plan of care reviewed with the patient and his nurse 07/20; patient is severely hypoxemic, on high flow oxygen 40 L/100%/O2 sats 95 Elevated D-dimers, patient is severely hypoxemic, will check CTA chest to rule out PE Also consider lower extremity venous Doppler to rule out DVT 07/21: Patient remains on high flow oxygen however mild improvement from 40 L to 35 l Tolerating prone position, continue steroids remdesivir CTA chest negative for PE, lower extremity venous Doppler negative for DVT Consults recommendations noted and appreciated Poor prognosis, patient is aware 07/22/2020; patient feels slightly better remains on high flow oxygen however lower than yesterday 35 L/95% /O2 sat 94% 07/21/2020 advised the patient to rest in prone position as tolerated Home oxygen evaluation 07/23/2020; remains on high flow oxygen, continue steroids remdesivir, prone position and comfort care Patient is critically ill with very poor prognosis and prolonged hypoxemia on high flow oxygen Plan of care reviewed with the patient and his nurse 07/24/2020; patient was severely hypoxemic rapid response called oxygen settings adjusted patient is currently better, requiring high flow oxygen right from the day he was admitted, poor prognosis, discussed with patient's 07/25/2020; patient remains on high flow oxygen in mild distress, overall prognosis poor I discussed with , and family friend physician Dr.Mundo extensively yesterday Poor prognosis continue current management 07/26/2020; patient remains on high flow oxygen 40 L/100%/95% O2 sat +100% nonrebreather Patient is critically ill, poor prognosis, ID pulmonary following 07/27/2020; patient remains on high flow oxygen 40 L/100%/[address] 100% nonrebreather Very poor prognosis, patient and family aware Pulmonary recommendations noted and appreciated 07/28/2020; patient remains critically ill, remains dependent on high flow oxygen 40 L +100% nonrebreather Very poor prognosis. 07/29/2020 Remains critically ill On high flow oxygen 07/30/2020 On high flow oxygen Is critically ill 07/31/2020 On high flow oxygen Critically ill 08/01/2020 on high flow oxygen Critically ill Objective - Constitutional Vitals: Vital Signs - 12hr 08/01/20 08/01/20 08/01/20 19:16 19:30 19:46 Temperature Pulse Rate 119 H 126 H 117 H Respiratory 19 30 H 29 H Rate Blood Pressure 131/86 127/82 142/85 O2 Sat by Pulse 89 86 Oximetry 08/01/20 08/01/20 08/01/20 19:58 20:00 20:16 Temperature 99.3 F Pulse Rate 118 H 119 H Respiratory 29 H 30 H Rate Blood Pressure 160/94 144/87 O2 Sat by Pulse 87 88 Oximetry 08/01/20 08/01/20 08/01/20 20:30 20:46 21:00 Temperature Pulse Rate 121 H 119 H 119 H Respiratory 28 H 22 28 H Rate Blood Pressure 141/84 132/80 137/85 O2 Sat by Pulse 92 87 91 Oximetry 08/01/20 08/01/20 08/01/20 21:16 21:30 21:46 Temperature Pulse Rate 125 H 126 H 123 H Respiratory 30 H 30 H 30 H Rate Blood Pressure 145/88 122/74 135/78 O2 Sat by Pulse 95 100 82 L Oximetry 08/01/20 08/01/20 08/01/20 22:00 22:16 22:30 Temperature Pulse Rate 132 H 127 H 125 H Respiratory 30 H 26 H 26 H Rate Blood Pressure 130/74 120/81 133/82 O2 Sat by Pulse 93 84 92 Oximetry 08/01/20 08/01/20 08/01/20 22:31 22:45 23:00 Temperature Pulse Rate 132 H 132 H 125 H Respiratory 31 H 30 H Rate Blood Pressure 131/83 123/79 135/82 O2 Sat by Pulse 94 91 93 Oximetry 08/01/20 08/01/20 08/01/20 23:16 23:30 23:46 Temperature Pulse Rate 137 H 130 H 124 H Respiratory 22 30 H 22 Rate Blood Pressure 137/83 134/84 132/89 O2 Sat by Pulse 92 86 Oximetry 08/01/20 08/02/20 08/02/20 23:51 00:00 00:02 Temperature 101.5 F H Pulse Rate 135 H 129 H 129 H Respiratory 22 29 H 30 H Rate Blood Pressure 131/82 129/84 117/86 O2 Sat by Pulse 91 92 92 Oximetry 08/02/20 08/02/20 08/02/20 00:16 00:30 00:46 Temperature Pulse Rate 125 H 135 H 128 H Respiratory 30 H 30 H 28 H Rate Blood Pressure 112/82 133/91 131/79 O2 Sat by Pulse 87 85 90 Oximetry 08/02/20 08/02/20 08/02/20 01:00 01:16 01:30 Temperature Pulse Rate 133 H 128 H 124 H Respiratory 30 H 25 H 30 H Rate Blood Pressure 125/77 136/75 111/75 O2 Sat by Pulse 93 89 95 Oximetry 08/02/20 08/02/20 08/02/20 01:46 02:01 02:15 Temperature Pulse Rate 125 H 121 H 121 H Respiratory 30 H 30 H 30 H Rate Blood Pressure 117/67 111/69 111/71 O2 Sat by Pulse 95 95 Oximetry 08/02/20 08/02/20 08/02/20 02:31 02:45 03:00 Temperature Pulse Rate 119 H 118 H 117 H Respiratory 30 H 30 H 30 H Rate Blood Pressure 109/79 115/74 96/67 O2 Sat by Pulse 91 90 94 Oximetry 08/02/20 08/02/20 08/02/20 03:15 03:30 03:45 Temperature Pulse Rate 115 H 114 H 114 H Respiratory 30 H 30 H 30 H Rate Blood Pressure 104/70 108/70 108/70 O2 Sat by Pulse 95 92 95 Oximetry 08/02/20 08/02/20 08/02/20 03:48 04:00 04:15 Temperature 98.9 F Pulse Rate 115 H 116 H Respiratory 30 H 27 H Rate Blood Pressure 114/70 109/73 O2 Sat by Pulse 96 94 Oximetry 08/02/20 08/02/20 08/02/20 04:30 04:45 05:01 Temperature Pulse Rate 115 H 114 H 114 H Respiratory 30 H 30 H 30 H Rate Blood Pressure 102/75 102/75 114/70 O2 Sat by Pulse 91 96 93 Oximetry 08/02/20 08/02/20 08/02/20 05:15 05:30 05:45 Temperature Pulse Rate 115 H 114 H 115 H Respiratory 30 H 30 H 30 H Rate Blood Pressure 114/70 103/76 103/76 O2 Sat by Pulse 97 95 96 Oximetry 08/02/20 08/02/20 08/02/20 06:00 06:15 06:30 Temperature Pulse Rate 115 H 117 H 115 H Respiratory 30 H 28 H 30 H Rate Blood Pressure 109/76 109/76 112/75 O2 Sat by Pulse 93 95 88 Oximetry 08/02/20 06:45 Temperature Pulse Rate 115 H Respiratory 30 H Rate Blood Pressure 112/75 O2 Sat by Pulse 96 Oximetry General appearance: Present: severe distress, well-nourished - EENT Eyes: PERRL, EOM intact ENT: hearing intact, clear oral mucosa Ears: bilateral: normal - Neck Neck: supple, normal ROM - Respiratory Respiratory effort: normal Respiratory: bilateral: CTA, wheezing (Scattered rhonchi) - Breasts Breasts: normal - Cardiovascular Heart rate: 98 Rhythm: regular Heart Sounds: Present: S1 & S2. Absent: gallop, rub Extremities: pulses intact, No edema, normal color, Full ROM - Gastrointestinal General gastrointestinal: Present: soft, non-tender, non-distended, normal bowel sounds - Genitourinary Male genitourinary: normal - Integumentary Integumentary: clear, warm, dry - Musculoskeletal Musculoskeletal: 1, strength equal bilaterally - Neurologic Neurologic: moves all extremities - Psychiatric Psychiatric: memory intact, appropriate mood/affect, intact judgment & insight - Labs CBC & Chem 7: 07/31/20 23:55 08/01/20 08:30 Labs: Abnormal lab results 08/01/20 08/01/20 08/01/20 Range/Units 03:47 08:30 12:27 POC ABG pCO2 49.8 H (32.0-48.0) mmHg POC ABG pO2 123.4 H (83-108) mmHg ABG Sodium (136.0-145.0) mmol/L ABG Potassium 4.6 H (3.40-4.50) mmol/L ABG Chloride 111.0 H (98-107) mmol/L ABG Glucose 130 H (65-95) mg/dL Sodium 154 H (137-145) mmol/L Chloride 115.1 H (98-107) mmol/L Carbon Dioxide 32 H (22-30) mmol/L BUN 49 H (9-20) mg/dL Glucose 492 H (75-100) mg/dL POC Glucose 161 H (70-105) mg/dL Calcium 7.2 L D (8.4-10.2) mg/dL Arterial Blood Glucose 130 H (65-95) mg/dL Arterial Blood Ionized Calcium 4.5 L (4.6-5.3) mg/dL 08/01/20 08/01/20 08/02/20 Range/Units 16:55 23:06 05:00 POC ABG pCO2 52.5 H (32.0-48.0) mmHg POC ABG pO2 69.8 L (83-108) mmHg ABG Sodium 147.2 H (136.0-145.0) mmol/L ABG Potassium (3.40-4.50) mmol/L ABG Chloride 110.0 H (98-107) mmol/L ABG Glucose 177 H (65-95) mg/dL Sodium (137-145) mmol/L Chloride (98-107) mmol/L Carbon Dioxide (22-30) mmol/L BUN (9-20) mg/dL Glucose (75-100) mg/dL POC Glucose 195 H 162 H (70-105) mg/dL Calcium (8.4-10.2) mg/dL Arterial Blood Glucose 177 H (65-95) mg/dL Arterial Blood Ionized Calcium (4.6-5.3) mg/dL 08/02/20 Range/Units 05:01 POC ABG pCO2 (32.0-48.0) mmHg POC ABG pO2 (83-108) mmHg ABG Sodium (136.0-145.0) mmol/L ABG Potassium (3.40-4.50) mmol/L ABG Chloride (98-107) mmol/L ABG Glucose (65-95) mg/dL Sodium (137-145) mmol/L Chloride (98-107) mmol/L Carbon Dioxide (22-30) mmol/L BUN (9-20) mg/dL Glucose (75-100) mg/dL POC Glucose 146 H (70-105) mg/dL Calcium (8.4-10.2) mg/dL Arterial Blood Glucose (65-95) mg/dL Arterial Blood Ionized Calcium (4.6-5.3) mg/dL HEART Score - HEART Score Troponin: Troponin T 0.018 ng/mL (0.00-0.029) 07/30/20 10:33
[2020-08-02] MEDS: dexAMETHasone 4 MG/ML VIAL IV SCH (09:26)
[2020-08-02] MEDS: FAMOTIDINE 20 MG TAB PO SCH ×2 (09:26→21:52)
--- NOTE | 2020-08-02 11:29 | Progress Note ---
Assessment and Plan 60 y/o male with chest discomfort, shortness of breath and abnormal CXR, COVID Positive 08/02/20: Check blood and urine cultures along with UA. Will check repeat CXR. Repeat Chemistry tomorrow. Hold on abx therapy for right now. Prognosis remains guarded. Continue steroids. Wean FiO2 for sats >88% 08/01/20: Overall prognosis here is very very guarded to poor. Will consider proning patient later today if not able to wean FiO2 any further this afternoon. Per CM, wants to come see patient which is very reasonable. Will continue steroids despite completing 10 days of this. 07/29/20: Supportive measures. Proning and wean as tolerated. 07/28/20: No new recommendations as of right now. When beds become available will move patient down stairs for closer monitoring. 07/27/20: Difficult situation. Patient appears to be not responding to any therapy. Steroids finished yesterday. Given the degree of inflammation will restart steroids for at least another 72-96 hours. In no improvement will stop. Not much else to do medical therapy [place]. Continue to keep patient net negative. Still remains high risk for intubation and if intubated given his current response to steroids, very high mortality. 07/26/20: No new recs for today. Patient really needs to try to prone as much as possible during the day and sleep prone at night. He remains a high risk for cardiac arrest and intubation. 07/25/20: very high risk for cardiac arrest from hypoxemia, but no available beds in ICU. Given COVID status, ideally would not like to use bipap but may have to in the event of continued desats. While proning does better and does not need the mask along with HFNC. Encourage to prone as long as possible. 1. Continue steroids for 10 days. 2. Continue Remdesivir. Not a candidate for Convalescent Plasma 3. Please ask patient prone as tolerated during the day and sleep prone at night. Currently doing and tolerating 4. Agree with daily lasix but will need labs to monitor renal function and electrolytes. Needs labs for today. 5. Guarded prognosis to poor now with increasing oxygen requirement. May require intubation and high risk for cardiac arrest. CCT 31 Subjective Date of service: 08/02/20 Principal diagnosis: Acute respiratory failure with hypoxia, Covid pneumonia Interval history: Febrile overnight and this am. Not cultured. Down to 60% FiO2. Did not prone. Small bump in Cr but still making good urine. Objective Vital Signs - 12hr 08/01/20 08/01/20 08/01/20 23:30 23:46 23:51 Temperature Pulse Rate 130 H 124 H 135 H Respiratory 30 H 22 22 Rate Blood Pressure 134/84 132/89 131/82 O2 Sat by Pulse 92 86 91 Oximetry 08/02/20 08/02/20 08/02/20 00:00 00:02 00:16 Temperature 101.5 F H Pulse Rate 129 H 129 H 125 H Respiratory 29 H 30 H 30 H Rate Blood Pressure 129/84 117/86 112/82 O2 Sat by Pulse 92 92 87 Oximetry 08/02/20 08/02/20 08/02/20 00:30 00:46 01:00 Temperature Pulse Rate 135 H 128 H 133 H Respiratory 30 H 28 H 30 H Rate Blood Pressure 133/91 131/79 125/77 O2 Sat by Pulse 85 90 93 Oximetry 08/02/20 08/02/20 08/02/20 01:16 01:30 01:46 Temperature Pulse Rate 128 H 124 H 125 H Respiratory 25 H 30 H 30 H Rate Blood Pressure 136/75 111/75 117/67 O2 Sat by Pulse 89 95 95 Oximetry 08/02/20 08/02/20 08/02/20 02:01 02:15 02:31 Temperature Pulse Rate 121 H 121 H 119 H Respiratory 30 H 30 H 30 H Rate Blood Pressure 111/69 111/71 109/79 O2 Sat by Pulse 95 91 Oximetry 08/02/20 08/02/20 08/02/20 02:45 03:00 03:15 Temperature Pulse Rate 118 H 117 H 115 H Respiratory 30 H 30 H 30 H Rate Blood Pressure 115/74 96/67 104/70 O2 Sat by Pulse 90 94 95 Oximetry 08/02/20 08/02/20 08/02/20 03:30 03:45 03:48 Temperature 98.9 F Pulse Rate 114 H 114 H Respiratory 30 H 30 H Rate Blood Pressure 108/70 108/70 O2 Sat by Pulse 92 95 Oximetry 08/02/20 08/02/20 08/02/20 04:00 04:15 04:30 Temperature Pulse Rate 115 H 116 H 115 H Respiratory 30 H 27 H 30 H Rate Blood Pressure 114/70 109/73 102/75 O2 Sat by Pulse 96 94 91 Oximetry 08/02/20 08/02/20 08/02/20 04:45 05:01 05:15 Temperature Pulse Rate 114 H 114 H 115 H Respiratory 30 H 30 H 30 H Rate Blood Pressure 102/75 114/70 114/70 O2 Sat by Pulse 96 93 97 Oximetry 08/02/20 08/02/20 08/02/20 05:30 05:45 06:00 Temperature Pulse Rate 114 H 115 H 115 H Respiratory 30 H 30 H 30 H Rate Blood Pressure 103/76 103/76 109/76 O2 Sat by Pulse 95 96 93 Oximetry 08/02/20 08/02/20 08/02/20 06:15 06:30 06:45 Temperature Pulse Rate 117 H 115 H 115 H Respiratory 28 H 30 H 30 H Rate Blood Pressure 109/76 112/75 112/75 O2 Sat by Pulse 95 88 96 Oximetry 08/02/20 08/02/20 07:34 11:19 Temperature Pulse Rate 115 H 116 H Respiratory Rate Blood Pressure 112/75 112/75 O2 Sat by Pulse 96 97 Oximetry Constitutional: other (orally intubated on vent) Eyes: non-icteric ENT: oropharynx moist Neck: supple Ascultation: Bilateral: diminished breath sounds, rhonchi Cardiovascular: regular rate and rhythm, other (tachycardia) Gastrointestinal: normoactive bowel sounds, soft, non-tender, non-distended Integumentary: normal Extremities: no cyanosis Neurologic: normal mental status, non-focal exam CBC and BMP: 07/31/20 23:55 08/01/20 08:30 ABG, PT/INR, D-dimer: ABG ABG pH 7.356 (7.320-7.450) 08/02/20 05:00 POC ABG pCO2 52.5 mmHg (32.0-48.0) H 08/02/20 05:00 POC ABG pO2 69.8 mmHg (83-108) L 08/02/20 05:00 POC ABG HCO3 28.7 08/02/20 05:00 PT/INR, D-dimer PT 13.7 Sec. (12.2-14.9) 07/18/20 04:31 INR 1.06 (0.87-1.13) 07/18/20 04:31 D-Dimer > 19820 ng/mlDDU (0-234) H 07/26/20 10:07 Abnormal lab findings: Abnormal Labs 07/17/20 07/17/20 07/17/20 17:30 17:30 22:48 WBC MCV MCH MCHC 35 H RDW Lymph % (Auto) 10.5 L Lymph # (Auto) 0.7 L Seg Neutrophils % 85.3 H Lymphocytes % (Manual) Seg Neutrophils # Man Lymphocytes # (Manual) D-Dimer 314.21 H POC ABG pCO2 POC ABG pO2 ABG Oxyhemoglobin ABG Sodium ABG Potassium ABG Chloride ABG Glucose Sodium Chloride Carbon Dioxide BUN 1 L Glucose 154 H POC Glucose Calcium Magnesium Ferritin Alkaline Phosphatase Lactate Dehydrogenase Total Creatine Kinase CK-MB (CK-2) C-Reactive Protein Albumin Arterial Blood Glucose Arterial Blood Ionized Calcium Coronavirus (PCR) SARS-CoV-2 IgG Ab 07/17/20 07/17/20 07/18/20 22:48 22:48 04:31 WBC MCV MCH 33 H MCHC 35 H RDW 13.1 L Lymph % (Auto) Lymph # (Auto) Seg Neutrophils % Lymphocytes % (Manual) 5.0 L Seg Neutrophils # Man 8.1 H Lymphocytes # (Manual) 0.4 L D-Dimer POC ABG pCO2 POC ABG pO2 ABG Oxyhemoglobin ABG Sodium ABG Potassium ABG Chloride ABG Glucose Sodium Chloride Carbon Dioxide BUN Glucose 124 H POC Glucose Calcium Magnesium Ferritin 889.3 H Alkaline Phosphatase Lactate Dehydrogenase 832 H Total Creatine Kinase CK-MB (CK-2) C-Reactive Protein 17.70 H Albumin Arterial Blood Glucose Arterial Blood Ionized Calcium Coronavirus (PCR) SARS-CoV-2 IgG Ab 07/18/20 07/18/20 07/18/20 04:31 08:50 18:48 WBC MCV MCH MCHC RDW Lymph % (Auto) Lymph # (Auto) Seg Neutrophils % Lymphocytes % (Manual) Seg Neutrophils # Man Lymphocytes # (Manual) D-Dimer 275.27 H POC ABG pCO2 POC ABG pO2 ABG Oxyhemoglobin ABG Sodium ABG Potassium ABG Chloride ABG Glucose Sodium Chloride Carbon Dioxide 31 H D BUN 23 H Glucose 143 H POC Glucose Calcium Magnesium Ferritin Alkaline Phosphatase Lactate Dehydrogenase Total Creatine Kinase CK-MB (CK-2) C-Reactive Protein Albumin Arterial Blood Glucose Arterial Blood Ionized Calcium Coronavirus (PCR) Positive A SARS-CoV-2 IgG Ab 07/18/20 07/18/20 07/20/20 18:48 18:48 08:56 WBC MCV MCH MCHC RDW Lymph % (Auto) Lymph # (Auto) Seg Neutrophils % Lymphocytes % (Manual) Seg Neutrophils # Man Lymphocytes # (Manual) D-Dimer POC ABG pCO2 POC ABG pO2 ABG Oxyhemoglobin ABG Sodium ABG Potassium ABG Chloride ABG Glucose Sodium Chloride Carbon Dioxide BUN 22 H Glucose 219 H POC Glucose Calcium Magnesium Ferritin 1164.0 H Alkaline Phosphatase Lactate Dehydrogenase 560 H 739 H Total Creatine Kinase CK-MB (CK-2) C-Reactive Protein 18.00 H 17.50 H Albumin 3.0 L Arterial Blood Glucose Arterial Blood Ionized Calcium Coronavirus (PCR) SARS-CoV-2 IgG Ab 07/20/20 07/20/20 07/21/20 08:56 08:56 05:24 WBC MCV MCH MCHC RDW Lymph % (Auto) Lymph # (Auto) Seg Neutrophils % Lymphocytes % (Manual) Seg Neutrophils # Man Lymphocytes # (Manual) D-Dimer 9523.70 H POC ABG pCO2 POC ABG pO2 ABG Oxyhemoglobin ABG Sodium ABG Potassium ABG Chloride ABG Glucose Sodium Chloride Carbon Dioxide BUN Glucose POC Glucose Calcium Magnesium Ferritin 1581.0 H Alkaline Phosphatase Lactate Dehydrogenase Total Creatine Kinase CK-MB (CK-2) C-Reactive Protein Albumin Arterial Blood Glucose Arterial Blood Ionized Calcium Coronavirus (PCR) SARS-CoV-2 IgG Ab Reactive A 07/22/20 07/24/20 07/26/20 04:31 13:26 10:07 WBC MCV MCH MCHC RDW Lymph % (Auto) Lymph # (Auto) Seg Neutrophils % Lymphocytes % (Manual) Seg Neutrophils # Man Lymphocytes # (Manual) D-Dimer > 62060 H POC ABG pCO2 POC ABG pO2 ABG Oxyhemoglobin ABG Sodium ABG Potassium ABG Chloride ABG Glucose Sodium 146 H Chloride Carbon Dioxide 32 H BUN 28 H 26 H Glucose 144 H 116 H POC Glucose Calcium 8.3 L Magnesium Ferritin Alkaline Phosphatase Lactate Dehydrogenase Total Creatine Kinase CK-MB (CK-2) C-Reactive Protein Albumin 3.3 L Arterial Blood Glucose Arterial Blood Ionized Calcium Coronavirus (PCR) SARS-CoV-2 IgG Ab 07/26/20 07/26/20 07/27/20 10:07 10:07 19:45 WBC MCV MCH MCHC RDW Lymph % (Auto) Lymph # (Auto) Seg Neutrophils % Lymphocytes % (Manual) Seg Neutrophils # Man Lymphocytes # (Manual) D-Dimer POC ABG pCO2 POC ABG pO2 ABG Oxyhemoglobin ABG Sodium ABG Potassium ABG Chloride ABG Glucose Sodium Chloride 97.4 L Carbon Dioxide 33 H BUN 27 H Glucose 175 H POC Glucose Calcium Magnesium Ferritin 1079.0 H Alkaline Phosphatase Lactate Dehydrogenase 708 H Total Creatine Kinase CK-MB (CK-2) C-Reactive Protein 6.10 H Albumin Arterial Blood Glucose Arterial Blood Ionized Calcium Coronavirus (PCR) SARS-CoV-2 IgG Ab 07/29/20 07/30/20 07/30/20 02:09 10:33 11:54 WBC MCV MCH MCHC RDW Lymph % (Auto) Lymph # (Auto) Seg Neutrophils % Lymphocytes % (Manual) Seg Neutrophils # Man Lymphocytes # (Manual) D-Dimer POC ABG pCO2 POC ABG pO2 ABG Oxyhemoglobin ABG Sodium ABG Potassium ABG Chloride ABG Glucose Sodium Chloride Carbon Dioxide BUN Glucose POC Glucose 183 H Calcium Magnesium 3.00 H Ferritin Alkaline Phosphatase Lactate Dehydrogenase Total Creatine Kinase 174 H CK-MB (CK-2) 4.5 H C-Reactive Protein Albumin Arterial Blood Glucose Arterial Blood Ionized Calcium Coronavirus (PCR) SARS-CoV-2 IgG Ab 07/30/20 07/30/20 07/31/20 17:30 23:08 11:04 WBC MCV MCH MCHC RDW Lymph % (Auto) Lymph # (Auto) Seg Neutrophils % Lymphocytes % (Manual) Seg Neutrophils # Man Lymphocytes # (Manual) D-Dimer POC ABG pCO2 POC ABG pO2 ABG Oxyhemoglobin ABG Sodium ABG Potassium ABG Chloride ABG Glucose Sodium 151 H D Chloride 109.2 H Carbon Dioxide 32 H BUN 48 H Glucose 165 H POC Glucose 199 H 194 H Calcium Magnesium Ferritin Alkaline Phosphatase 168 H Lactate Dehydrogenase Total Creatine Kinase CK-MB (CK-2) C-Reactive Protein Albumin 3.1 L Arterial Blood Glucose Arterial Blood Ionized Calcium Coronavirus (PCR) SARS-CoV-2 IgG Ab 07/31/20 07/31/20 07/31/20 11:18 11:23 17:47 WBC MCV MCH MCHC RDW Lymph % (Auto) Lymph # (Auto) Seg Neutrophils % Lymphocytes % (Manual) Seg Neutrophils # Man Lymphocytes # (Manual) D-Dimer POC ABG pCO2 56.6 H POC ABG pO2 73.1 L ABG Oxyhemoglobin 92.1 L ABG Sodium ABG Potassium ABG Chloride 108.0 H ABG Glucose 169 H Sodium Chloride Carbon Dioxide BUN Glucose POC Glucose 156 H 169 H Calcium Magnesium Ferritin Alkaline Phosphatase Lactate Dehydrogenase Total Creatine Kinase CK-MB (CK-2) C-Reactive Protein Albumin Arterial Blood Glucose 169 H Arterial Blood Ionized Calcium Coronavirus (PCR) SARS-CoV-2 IgG Ab 07/31/20 07/31/20 07/31/20 20:58 23:18 23:55 WBC 19.8 H MCV 95 H MCH MCHC RDW 13.0 L Lymph % (Auto) Lymph # (Auto) Seg Neutrophils % Lymphocytes % (Manual) Seg Neutrophils # Man Lymphocytes # (Manual) D-Dimer POC ABG pCO2 POC ABG pO2 ABG Oxyhemoglobin ABG Sodium ABG Potassium ABG Chloride ABG Glucose Sodium Chloride Carbon Dioxide BUN Glucose POC Glucose 293 H 211 H Calcium Magnesium Ferritin Alkaline Phosphatase Lactate Dehydrogenase Total Creatine Kinase CK-MB (CK-2) C-Reactive Protein Albumin Arterial Blood Glucose Arterial Blood Ionized Calcium Coronavirus (PCR) SARS-CoV-2 IgG Ab 08/01/20 08/01/20 08/01/20 03:47 08:30 12:27 WBC MCV MCH MCHC RDW Lymph % (Auto) Lymph # (Auto) Seg Neutrophils % Lymphocytes % (Manual) Seg Neutrophils # Man Lymphocytes # (Manual) D-Dimer POC ABG pCO2 49.8 H POC ABG pO2 123.4 H ABG Oxyhemoglobin ABG Sodium ABG Potassium 4.6 H ABG Chloride 111.0 H ABG Glucose 130 H Sodium 154 H Chloride 115.1 H Carbon Dioxide 32 H BUN 49 H Glucose 492 H POC Glucose 161 H Calcium 7.2 L D Magnesium Ferritin Alkaline Phosphatase Lactate Dehydrogenase Total Creatine Kinase CK-MB (CK-2) C-Reactive Protein Albumin Arterial Blood Glucose 130 H Arterial Blood Ionized Calcium 4.5 L Coronavirus (PCR) SARS-CoV-2 IgG Ab 08/01/20 08/01/20 08/02/20 16:55 23:06 05:00 WBC MCV MCH MCHC RDW Lymph % (Auto) Lymph # (Auto) Seg Neutrophils % Lymphocytes % (Manual) Seg Neutrophils # Man Lymphocytes # (Manual) D-Dimer POC ABG pCO2 52.5 H POC ABG pO2 69.8 L ABG Oxyhemoglobin ABG Sodium 147.2 H ABG Potassium ABG Chloride 110.0 H ABG Glucose 177 H Sodium Chloride Carbon Dioxide BUN Glucose POC Glucose 195 H 162 H Calcium Magnesium Ferritin Alkaline Phosphatase Lactate Dehydrogenase Total Creatine Kinase CK-MB (CK-2) C-Reactive Protein Albumin Arterial Blood Glucose 177 H Arterial Blood Ionized Calcium Coronavirus (PCR) SARS-CoV-2 IgG Ab 08/02/20 05:01 WBC MCV MCH MCHC RDW Lymph % (Auto) Lymph # (Auto) Seg Neutrophils % Lymphocytes % (Manual) Seg Neutrophils # Man Lymphocytes # (Manual) D-Dimer POC ABG pCO2 POC ABG pO2 ABG Oxyhemoglobin ABG Sodium ABG Potassium ABG Chloride ABG Glucose Sodium Chloride Carbon Dioxide BUN Glucose POC Glucose 146 H Calcium Magnesium Ferritin Alkaline Phosphatase Lactate Dehydrogenase Total Creatine Kinase CK-MB (CK-2) C-Reactive Protein Albumin Arterial Blood Glucose Arterial Blood Ionized Calcium Coronavirus (PCR) SARS-CoV-2 IgG Ab
[2020-08-02 12:23] LABS: Bilirubin,Urine NEG (Negative); Blood,Urine NEG (Negative); Color,Urine Yellow (Yellow); Granular Casts,Urine 1 /LPF; Hyaline Casts,Urine 1 /LPF; Mucus,Urine FEW /HPF; Protein,Urine <15 mg/dL mg/dL (Negative); Urobilinogen,Urine < 2.0 mg/dL (<2.0)
[2020-08-02] MEDS: traZODone 50 MG TAB PO SCH (21:52)
[2020-08-02] MEDS: ENOXAPARIN 40 MG/0.4 ML INJ SUB-Q SCH (21:52)
--- NOTE | 2020-08-02 23:48 | Progress Note ---
Assessment and Plan Critical care statement The high probability OF a clinically significant sudden or life-threatening deterioration of the cardiorespiratory system and endocrine system required my full and direct attention, intervention and postoperative management. The aggregate critical care time was 35 minutes. The time is in addition to time spent performing reported procedures but includes the followin: Data review and interpretation 2: Patient assessment and monitoring of vital signs 3: Documentation 4:: Medication orders and management Assessment and Plan Patient with acute hypoxemic respiratory failure on high flow oxygen COVID-19 pneumonia, persistent hypoxemia, remains on high flow oxygen 40 L/100%/O2 sats 91+ nonrebreather, critically ill with poor prognosis, patient and family aware --Acute hypoxc respiratory failure; on high flow oxygen Current Visit: Yes Status: Acute Plan to address problem: 40 L /100% /O2 sats 95% 07/20/2020 35L/95% /O2 sat 94% 07/21/2020 40 L/100%/91 O2 sats 07/23/20 40 L/100%/97 O2 sats 07/24/2020 Mild improvement, titrate O2 sats to more than 90% Due to the underlying COVID-19 pneumonia. Treat the underlying cause Prone position as tolerated Home O2 evaluation Acute hypoxic respiratory failure -rapid response 07/24/2020 Patient has removed the oxygen, and went into severe hypoxemia Code met was called, respiratory be adjusted oxygen settings Patient feels better, updated --COVID-19 positive Continue contact and droplet isolation, IV dexamethasone for total 4/9 days IV remdesivir per ID 2/4 Patient is already on high flow oxygen Prone position as tolerated, inflammatory markers Anticoagulation per protocol, and supportive care Patient is critically ill, poor prognosis SARS to Covid IgG antibodies positive, no indication for convalescent --Elevated D-dimers; CTA chest negative for PE, mild pulmonary edema, I will add Lasix 40 mg IV 1 dose now, and daily thereafter lower extremity venous Doppler, negative for DVT -- Pneumonia Current Visit: Yes Status: Acute Plan to address problem: Continue empiric IV antibiotics. Procalcitonin is elevated In view of patient's pneumonia and severe hypoxia Elevated D-dimers will get CTA chest to rule out PE -- DVT prophylaxis Current Visit: Yes Status: Acute Plan to address problem: Patient placed on subcutaneous Lovenox. -- Full code status Current Visit: Yes Status: Acute Plan to address problem: Patient is a full code. Subjective Date of service: 08/02/20 Principal diagnosis: Acute respiratory failure with hypoxia, Covid pneumonia Interval history: History Interval history: I have seen and examined the patient at the bedside Isolation precautions PPE protocol strictly followed Patient remains critically ill Requiring high flow oxygen Shortness of breath Vital signs reviewed Patient continues to be on high levels of oxygen Closely monitor the patient and adjust management as needed Follow CTA chest, and inflammatory markers Consults recommendations noted and appreciated Plan of care reviewed with the patient and his nurse 07/20; patient is severely hypoxemic, on high flow oxygen 40 L/100%/O2 sats 95 Elevated D-dimers, patient is severely hypoxemic, will check CTA chest to rule out PE Also consider lower extremity venous Doppler to rule out DVT 07/21: Patient remains on high flow oxygen however mild improvement from 40 L to 35 l Tolerating prone position, continue steroids remdesivir CTA chest negative for PE, lower extremity venous Doppler negative for DVT Consults recommendations noted and appreciated Poor prognosis, patient is aware 07/22/2020; patient feels slightly better remains on high flow oxygen however lower than yesterday 35 L/95% /O2 sat 94% 07/21/2020 advised the patient to rest in prone position as tolerated Home oxygen evaluation 07/23/2020; remains on high flow oxygen, continue steroids remdesivir, prone position and comfort care Patient is critically ill with very poor prognosis and prolonged hypoxemia on high flow oxygen Plan of care reviewed with the patient and his nurse 07/24/2020; patient was severely hypoxemic rapid response called oxygen settings adjusted patient is currently better, requiring high flow oxygen right from the day he was admitted, poor prognosis, discussed with patient's 07/25/2020; patient remains on high flow oxygen in mild distress, overall prognosis poor I discussed with , and family friend physician extensively yesterday Poor prognosis continue current management 07/26/2020; patient remains on high flow oxygen 40 L/100%/95% O2 sat +100% nonrebreather Patient is critically ill, poor prognosis, ID pulmonary following 07/27/2020; patient remains on high flow oxygen 40 L/100%/[address] 100% nonrebreather Very poor prognosis, patient and family aware Pulmonary recommendations noted and appreciated 07/28/2020; patient remains critically ill, remains dependent on high flow oxygen 40 L +100% nonrebreather Very poor prognosis. 07/29/2020 Remains critically ill On high flow oxygen 07/30/2020 On high flow oxygen Is critically ill 07/31/2020 On high flow oxygen Critically ill 08/01/2020 on high flow oxygen Critically ill 08/02/2020 Critically ill Objective - Constitutional Vitals: Vital Signs - 12hr 08/02/20 08/02/20 08/02/20 12:00 12:15 12:30 Temperature 98.4 F Pulse Rate 102 H 103 H 103 H Pulse Rate [ 118 H From Monitor] Respiratory 30 H 30 H 30 H Rate Blood Pressure 110/77 110/77 112/72 O2 Sat by Pulse 85 93 Oximetry 08/02/20 08/02/20 08/02/20 12:45 13:00 13:15 Temperature Pulse Rate 102 H 106 H 107 H Pulse Rate [ From Monitor] Respiratory 30 H 30 H 30 H Rate Blood Pressure 112/72 111/76 111/76 O2 Sat by Pulse 94 93 94 Oximetry 08/02/20 08/02/20 08/02/20 13:30 13:45 14:00 Temperature Pulse Rate 105 H 106 H 107 H Pulse Rate [ From Monitor] Respiratory 30 H 30 H 30 H Rate Blood Pressure 111/77 111/77 119/79 O2 Sat by Pulse 92 93 89 Oximetry 08/02/20 08/02/20 08/02/20 14:15 14:30 14:45 Temperature Pulse Rate 110 H 109 H 107 H Pulse Rate [ From Monitor] Respiratory 33 H 30 H 30 H Rate Blood Pressure 119/79 120/81 119/79 O2 Sat by Pulse 86 85 93 Oximetry 08/02/20 08/02/20 08/02/20 15:00 15:15 15:30 Temperature Pulse Rate 108 H 108 H Pulse Rate [ From Monitor] Respiratory 30 H 30 H Rate Blood Pressure 129/77 134/82 117/78 O2 Sat by Pulse 89 93 93 Oximetry 08/02/20 08/02/20 08/02/20 15:31 15:45 16:00 Temperature 99.4 F Pulse Rate 106 H 110 H 110 H Pulse Rate [ 117 H From Monitor] Respiratory 30 H 30 H Rate Blood Pressure 111/76 129/77 O2 Sat by Pulse 93 95 95 Oximetry 08/02/20 08/02/20 08/02/20 16:01 16:15 16:30 Temperature Pulse Rate 111 H 109 H 110 H Pulse Rate [ From Monitor] Respiratory 30 H 30 H 30 H Rate Blood Pressure 113/67 113/67 113/70 O2 Sat by Pulse 91 96 93 Oximetry 08/02/20 08/02/20 08/02/20 16:45 17:00 17:15 Temperature Pulse Rate 109 H 108 H 111 H Pulse Rate [ From Monitor] Respiratory 30 H 30 H 30 H Rate Blood Pressure 113/67 110/69 110/69 O2 Sat by Pulse 94 95 Oximetry 08/02/20 08/02/20 08/02/20 17:30 17:45 18:00 Temperature Pulse Rate 108 H 108 H 108 H Pulse Rate [ From Monitor] Respiratory 30 H 30 H 30 H Rate Blood Pressure 110/71 113/70 111/68 O2 Sat by Pulse 94 96 Oximetry 08/02/20 08/02/20 08/02/20 18:15 18:30 18:45 Temperature Pulse Rate 107 H 105 H 105 H Pulse Rate [ From Monitor] Respiratory 30 H 30 H 30 H Rate Blood Pressure 111/68 114/72 110/71 O2 Sat by Pulse 97 96 97 Oximetry 08/02/20 08/02/20 08/02/20 19:00 19:15 19:30 Temperature Pulse Rate 108 H 105 H 104 H Pulse Rate [ From Monitor] Respiratory 30 H 30 H 30 H Rate Blood Pressure 114/72 110/70 115/70 O2 Sat by Pulse 96 97 Oximetry 08/02/20 08/02/20 08/02/20 19:45 20:00 20:10 Temperature 98.8 F Pulse Rate 103 H 105 H 104 H Pulse Rate [ 105 H From Monitor] Respiratory 30 H 30 H Rate Blood Pressure 110/70 109/70 119/71 O2 Sat by Pulse 97 96 96 Oximetry 08/02/20 08/02/20 08/02/20 20:15 20:30 20:45 Temperature Pulse Rate 104 H 104 H 106 H Pulse Rate [ From Monitor] Respiratory 30 H 30 H 30 H Rate Blood Pressure 115/70 119/71 119/71 O2 Sat by Pulse 96 93 93 Oximetry 08/02/20 08/02/20 08/02/20 21:00 21:15 21:30 Temperature Pulse Rate 107 H 106 H 107 H Pulse Rate [ From Monitor] Respiratory 30 H 30 H 30 H Rate Blood Pressure 129/75 129/75 123/77 O2 Sat by Pulse 91 96 90 Oximetry 08/02/20 08/02/20 08/02/20 21:45 22:00 22:16 Temperature Pulse Rate 109 H 110 H 111 H Pulse Rate [ From Monitor] Respiratory 30 H 30 H 27 H Rate Blood Pressure 123/77 124/75 124/75 O2 Sat by Pulse 94 95 Oximetry 08/02/20 08/02/20 08/02/20 22:30 22:46 23:00 Temperature Pulse Rate 113 H 111 H 116 H Pulse Rate [ From Monitor] Respiratory 26 H 30 H 23 Rate Blood Pressure 115/74 115/74 117/74 O2 Sat by Pulse 90 94 89 Oximetry 08/02/20 23:26 Temperature Pulse Rate 110 H Pulse Rate [ From Monitor] Respiratory Rate Blood Pressure 118/79 O2 Sat by Pulse 95 Oximetry General appearance: Present: severe distress, well-nourished - EENT Eyes: PERRL, EOM intact ENT: hearing intact, clear oral mucosa Ears: bilateral: normal - Neck Neck: supple, normal ROM - Respiratory Respiratory effort: normal Respiratory: bilateral: CTA - Breasts Breasts: normal - Cardiovascular Heart rate: 78 Rhythm: regular Heart Sounds: Present: S1 & S2. Absent: gallop, rub Extremities: pulses intact, No edema, normal color, Full ROM - Gastrointestinal General gastrointestinal: Present: soft, non-tender, non-distended, normal bowel sounds - Genitourinary Male genitourinary: normal - Integumentary Integumentary: clear, warm, dry - Musculoskeletal Musculoskeletal: 1, strength equal bilaterally - Neurologic Neurologic: moves all extremities - Psychiatric Psychiatric: memory intact, appropriate mood/affect, intact judgment & insight - Labs CBC & Chem 7: 08/06/20 08:59 08/06/20 08:59 Labs: Abnormal lab results 08/02/20 08/02/20 08/02/20 Range/Units 05:00 05:01 12:05 POC ABG pCO2 52.5 H (32.0-48.0) mmHg POC ABG pO2 69.8 L (83-108) mmHg ABG Sodium 147.2 H (136.0-145.0) mmol/L ABG Chloride 110.0 H (98-107) mmol/L ABG Glucose 177 H (65-95) mg/dL POC Glucose 146 H 166 H (70-105) mg/dL Arterial Blood Glucose 177 H (65-95) mg/dL 08/02/20 08/02/20 Range/Units 17:13 23:26 POC ABG pCO2 (32.0-48.0) mmHg POC ABG pO2 (83-108) mmHg ABG Sodium (136.0-145.0) mmol/L ABG Chloride (98-107) mmol/L ABG Glucose (65-95) mg/dL POC Glucose 209 H 157 H (70-105) mg/dL Arterial Blood Glucose (65-95) mg/dL HEART Score - HEART Score Troponin: Troponin T 0.018 ng/mL (0.00-0.029) 07/30/20 10:33
[2020-08-03] MEDS: fentaNYL DRIP Premix 2,000 MCG/100 ML BAG IV SCH ×5 (00:12→22:49)
--- NOTE | 2020-08-03 03:40 | XRay Report ---
CHEST 1 VIEW INDICATION / CLINICAL INFORMATION: follow up respiratory failure. COMPARISON: 08/02/2020 FINDINGS: SUPPORT DEVICES: Stable, satisfactory device positioning. HEART / MEDIASTINUM: No significant abnormality. LUNGS / PLEURA: Bilateral pulmonary opacities are stable in appearance. No new findings. No pneumotho rax. ADDITIONAL FINDINGS: No significant additional findings. IMPRESSION: 1. Stable appearance of the chest radiograph. Signer Name: Shelly Vasquez MD Signed: 08/03/2020 3:35 AM Workstation Name: [email or web address]
[2020-08-03] MEDS: ACETAMINOPHEN 325 MG TAB PO PRN (05:35)
[2020-08-03] MEDS: FAMOTIDINE 20 MG TAB PO SCH ×2 (09:51→21:11)
[2020-08-03] MEDS: dexAMETHasone 4 MG/ML VIAL IV SCH (09:51)
--- NOTE | 2020-08-03 10:34 | Progress Note ---
Assessment and Plan 60 y/o male with chest discomfort, shortness of breath and abnormal CXR, COVID Positive 08/03/20: Chemistry not ordered, ordered today. Follow up blood cultures. Increased PEEP to 14 and RT will attempt to wean FiO2 back down to 50's. Will continue steroids at current dosing for now. He has already completed to original 10 days. Given some improvement, would like to continue. Overall prognosis remains very guarded. 08/02/20: Check blood and urine cultures along with UA. Will check repeat CXR. Repeat Chemistry tomorrow. Hold on abx therapy for right now. Prognosis remains guarded. Continue steroids. Wean FiO2 for sats >88% 08/01/20: Overall prognosis here is very very guarded to poor. Will consider proning patient later today if not able to wean FiO2 any further this afternoon. Per CM, wants to come see patient which is very reasonable. Will continue steroids despite completing 10 days of this. 07/29/20: Supportive measures. Proning and wean as tolerated. 07/28/20: No new recommendations as of right now. When beds become available will move patient down stairs for closer monitoring. 07/27/20: Difficult situation. Patient appears to be not responding to any therapy. Steroids finished yesterday. Given the degree of inflammation will restart steroids for at least another 72-96 hours. In no improvement will stop. Not much else to do medical therapy [place]. Continue to keep patient net neg ative. Still remains high risk for intubation and if intubated given his current response to steroids, very high mortality. 07/26/20: No new recs for today. Patient really needs to try to prone as much as possible during the day and sleep prone at night. He remains a high risk for cardiac arrest and intubation. 07/25/20: very high risk for cardiac arrest from hypoxemia, but no available beds in ICU. Given COVID status, ideally would not like to use bipap but may have to in the event of continued desats. While proning does better and does not need the mask along with HFNC. Encourage to prone as long as possible. 1. Continue steroids for 10 days. 2. Continue Remdesivir. Not a candidate for Convalescent Plasma 3. Please ask patient prone as tolerated during the day and sleep prone at night. Currently doing and tolerating 4. Agree with daily lasix but will need labs to monitor renal function and electrolytes. Needs labs for today. 5. Guarded prognosis to poor now with increasing oxygen requirement. May require intubation and high risk for cardiac arrest. CCT 31 Subjective Date of service: 08/03/20 Principal diagnosis: Acute respiratory failure with hypoxia, Covid pneumonia Interval history: Continues to have fever. CXR is stable. UA was negative. Blood cultures are pending. On Fent and Diprovan. Will wake up with stimulation even on this. Remainder is negative. Still making good urine. Objective Vital Signs - 12hr 08/02/20 08/02/20 08/02/20 22:46 23:00 23:02 Temperature Pulse Rate 111 H 116 H 113 H Pulse Rate [ From Monitor] Respiratory 30 H 23 30 H Rate Blood Pressure 115/74 117/74 117/74 O2 Sat by Pulse 94 89 90 Oximetry 08/02/20 08/02/20 08/02/20 23:16 23:26 23:30 Temperature Pulse Rate 113 H 110 H 111 H Pulse Rate [ From Monitor] Respiratory 30 H 30 H Rate Blood Pressure 117/74 118/79 118/79 O2 Sat by Pulse 92 95 97 Oximetry 08/02/20 08/03/20 08/03/20 23:46 00:00 00:16 Temperature 100.8 F H Pulse Rate 108 H 110 H 110 H Pulse Rate [ 111 H From Monitor] Respiratory 30 H 30 H 30 H Rate Blood Pressure 118/79 123/76 118/79 O2 Sat by Pulse 92 90 93 Oximetry 08/03/20 08/03/20 08/03/20 00:30 00:46 01:00 Temperature Pulse Rate 110 H 112 H 112 H Pulse Rate [ From Monitor] Respiratory 20 23 30 H Rate Blood Pressure 132/80 123/76 132/80 O2 Sat by Pulse 87 93 94 Oximetry 08/03/20 08/03/20 08/03/20 01:16 01:30 01:46 Temperature Pulse Rate 110 H 110 H 111 H Pulse Rate [ From Monitor] Respiratory 27 H 30 H 30 H Rate Blood Pressure 113/73 117/72 117/72 O2 Sat by Pulse 95 90 95 Oximetry 08/03/20 08/03/20 08/03/20 02:00 02:16 02:30 Temperature Pulse Rate 110 H 111 H 108 H Pulse Rate [ From Monitor] Respiratory 29 H 30 H 29 H Rate Blood Pressure 111/75 117/72 127/75 O2 Sat by Pulse 90 95 92 Oximetry 08/03/20 08/03/20 08/03/20 02:46 03:00 03:16 Temperature Pulse Rate 108 H 110 H 109 H Pulse Rate [ From Monitor] Respiratory 30 H 29 H 30 H Rate Blood Pressure 127/75 122/72 122/72 O2 Sat by Pulse 94 88 94 Oximetry 08/03/20 08/03/20 08/03/20 03:30 03:46 04:00 Temperature 101.0 F H Pulse Rate 108 H 109 H 107 H Pulse Rate [ 107 H From Monitor] Respiratory 29 H 30 H 29 H Rate Blood Pressure 134/77 122/72 122/74 O2 Sat by Pulse 92 94 93 Oximetry 08/03/20 08/03/20 08/03/20 04:16 04:30 04:46 Temperature Pulse Rate 111 H 109 H 110 H Pulse Rate [ From Monitor] Respiratory 30 H 29 H 30 H Rate Blood Pressure 134/77 125/80 125/80 O2 Sat by Pulse 93 92 95 Oximetry 08/03/20 08/03/20 08/03/20 05:00 05:16 05:30 Temperature Pulse Rate 108 H 108 H 109 H Pulse Rate [ From Monitor] Respiratory 29 H 30 H 29 H Rate Blood Pressure 127/76 127/76 118/72 O2 Sat by Pulse 91 95 Oximetry 08/03/20 08/03/20 08/03/20 05:46 06:00 06:16 Temperature Pulse Rate 111 H 107 H 107 H Pulse Rate [ From Monitor] Respiratory 30 H 30 H 30 H Rate Blood Pressure 127/76 120/78 118/72 O2 Sat by Pulse 93 90 94 Oximetry 08/03/20 08/03/20 08/03/20 06:30 06:46 07:00 Temperature Pulse Rate 105 H 109 H 107 H Pulse Rate [ From Monitor] Respiratory 30 H 30 H 30 H Rate Blood Pressure 123/71 123/71 123/71 O2 Sat by Pulse 90 94 95 Oximetry 08/03/20 08/03/20 08/03/20 07:16 07:30 07:46 Temperature Pulse Rate 107 H 107 H 105 H Pulse Rate [ From Monitor] Respiratory 30 H 30 H 30 H Rate Blood Pressure 131/75 122/71 122/71 O2 Sat by Pulse 94 91 95 Oximetry 08/03/20 08/03/20 08/03/20 08:00 08:09 08:16 Temperature 100.6 F H Pulse Rate 107 H 108 H 111 H Pulse Rate [ 108 H From Monitor] Respiratory 30 H 30 H Rate Blood Pressure 114/71 114/71 114/71 O2 Sat by Pulse 91 95 Oximetry 08/03/20 08/03/20 08/03/20 08:30 08:46 09:00 Temperature Pulse Rate 113 H 106 H 107 H Pulse Rate [ From Monitor] Respiratory 30 H 30 H 30 H Rate Blood Pressure 119/69 119/69 119/73 O2 Sat by Pulse 94 97 93 Oximetry Constitutional: other (orally intubated on vent) Eyes: non-icteric ENT: oropharynx moist Neck: supple Ascultation: Bilateral: diminished breath sounds, rhonchi Cardiovascular: regular rate and rhythm, other (tachycardia) Gastrointestinal: normoactive bowel sounds, soft, non-tender, non-distended Integumentary: normal Extremities: no cyanosis Neurologic: normal mental status, non-focal exam CBC and BMP: 07/31/20 23:55 08/01/20 08:30 ABG, PT/INR, D-dimer: ABG ABG pH 7.379 (7.320-7.450) 08/03/20 04:06 POC ABG pCO2 55.6 mmHg (32.0-48.0) H 08/03/20 04:06 POC ABG pO2 66.1 mmHg (83-108) L 08/03/20 04:06 POC ABG HCO3 32.1 08/03/20 04:06 PT/INR, D-dimer PT 13.7 Sec. (12.2-14.9) 07/18/20 04:31 INR 1.06 (0.87-1.13) 07/18/20 04:31 D-Dimer > 51677 ng/mlDDU (0-234) H 07/26/20 10:07 Abnormal lab findings: Abnormal Labs 07/17/20 07/17/20 07/17/20 17:30 17:30 22:48 WBC MCV MCH MCHC 35 H RDW Lymph % (Auto) 10.5 L Lymph # (Auto) 0.7 L Seg Neutrophils % 85.3 H Lymphocytes % (Manual) Seg Neutrophils # Man Lymphocytes # (Manual) D-Dimer 314.21 H POC ABG pCO2 POC ABG pO2 ABG Hemoglobin ABG Oxyhemoglobin ABG Sodium ABG Potassium ABG Chloride ABG Glucose Sodium Chloride Carbon Dioxide BUN 1 L Glucose 154 H POC Glucose Calcium Magnesium Ferritin Alkaline Phosphatase Lactate Dehydrogenase Total Creatine Kinase CK-MB (CK-2) C-Reactive Protein Albumin Triglycerides Arterial Blood Glucose Arterial Blood Ionized Calcium Coronavirus (PCR) SARS-CoV-2 IgG Ab 07/17/20 07/17/20 07/18/20 22:48 22:48 04:31 WBC MCV MCH 33 H MCHC 35 H RDW 13.1 L Lymph % (Auto) Lymph # (Auto) Seg Neutrophils % Lymphocytes % (Manual) 5.0 L Seg Neutrophils # Man 8.1 H Lymphocytes # (Manual) 0.4 L D-Dimer POC ABG pCO2 POC ABG pO2 ABG Hemoglobin ABG Oxyhemoglobin ABG Sodium ABG Potassium ABG Chloride ABG Glucose Sodium Chloride Carbon Dioxide BUN Glucose 124 H POC Glucose Calcium Magnesium Ferritin 889.3 H Alkaline Phosphatase Lactate Dehydrogenase 832 H Total Creatine Kinase CK-MB (CK-2) C-Reactive Protein 17.70 H Albumin Triglycerides Arterial Blood Glucose Arterial Blood Ionized Calcium Coronavirus (PCR) SARS-CoV-2 IgG Ab 07/18/20 07/18/20 07/18/20 04:31 08:50 18:48 WBC MCV MCH MCHC RDW Lymph % (Auto) Lymph # (Auto) Seg Neutrophils % Lymphocytes % (Manual) Seg Neutrophils # Man Lymphocytes # (Manual) D-Dimer 275.27 H POC ABG pCO2 POC ABG pO2 ABG Hemoglobin ABG Oxyhemoglobin ABG Sodium ABG Potassium ABG Chloride ABG Glucose Sodium Chloride Carbon Dioxide 31 H D BUN 23 H Glucose 143 H POC Glucose Calcium Magnesium Ferritin Alkaline Phosphatase Lactate Dehydrogenase Total Creatine Kinase CK-MB (CK-2) C-Reactive Protein Albumin Triglycerides Arterial Blood Glucose Arterial Blood Ionized Calcium Coronavirus (PCR) Positive A SARS-CoV-2 IgG Ab 07/18/20 07/18/20 07/20/20 18:48 18:48 08:56 WBC MCV MCH MCHC RDW Lymph % (Auto) Lymph # (Auto) Seg Neutrophils % Lymphocytes % (Manual) Seg Neutrophils # Man Lymphocytes # (Manual) D-Dimer POC ABG pCO2 POC ABG pO2 ABG Hemoglobin ABG Oxyhemoglobin ABG Sodium ABG Potassium ABG Chloride ABG Glucose Sodium Chloride Carbon Dioxide BUN 22 H Glucose 219 H POC Glucose Calcium Magnesium Ferritin 1164.0 H Alkaline Phosphatase Lactate Dehydrogenase 560 H 739 H Total Creatine Kinase CK-MB (CK-2) C-Reactive Protein 18.00 H 17.50 H Albumin 3.0 L Triglycerides Arterial Blood Glucose Arterial Blood Ionized Calcium Coronavirus (PCR) SARS-CoV-2 IgG Ab 07/20/20 07/20/20 07/21/20 08:56 08:56 05:24 WBC MCV MCH MCHC RDW Lymph % (Auto) Lymph # (Auto) Seg Neutrophils % Lymphocytes % (Manual) Seg Neutrophils # Man Lymphocytes # (Manual) D-Dimer 9523.70 H POC ABG pCO2 POC ABG pO2 ABG Hemoglobin ABG Oxyhemoglobin ABG Sodium ABG Potassium ABG Chloride ABG Glucose Sodium Chloride Carbon Dioxide BUN Glucose POC Glucose Calcium Magnesium Ferritin 1581.0 H Alkaline Phosphatase Lactate Dehydrogenase Total Creatine Kinase CK-MB (CK-2) C-Reactive Protein Albumin Triglycerides Arterial Blood Glucose Arterial Blood Ionized Calcium Coronavirus (PCR) SARS-CoV-2 IgG Ab Reactive A 07/22/20 07/24/20 07/26/20 04:31 13:26 10:07 WBC MCV MCH MCHC RDW Lymph % (Auto) Lymph # (Auto) Seg Neutrophils % Lymphocytes % (Manual) Seg Neutrophils # Man Lymphocytes # (Manual) D-Dimer > 97938 H POC ABG pCO2 POC ABG pO2 ABG Hemoglobin ABG Oxyhemoglobin ABG Sodium ABG Potassium ABG Chloride ABG Glucose Sodium 146 H Chloride Carbon Dioxide 32 H BUN 28 H 26 H Glucose 144 H 116 H POC Glucose Calcium 8.3 L Magnesium Ferritin Alkaline Phosphatase Lactate Dehydrogenase Total Creatine Kinase CK-MB (CK-2) C-Reactive Protein Albumin 3.3 L Triglycerides Arterial Blood Glucose Arterial Blood Ionized Calcium Coronavirus (PCR) SARS-CoV-2 IgG Ab 07/26/20 07/26/20 07/27/20 10:07 10:07 19:45 WBC MCV MCH MCHC RDW Lymph % (Auto) Lymph # (Auto) Seg Neutrophils % Lymphocytes % (Manual) Seg Neutrophils # Man Lymphocytes # (Manual) D-Dimer POC ABG pCO2 POC ABG pO2 ABG Hemoglobin ABG Oxyhemoglobin ABG Sodium ABG Potassium ABG Chloride ABG Glucose Sodium Chloride 97.4 L Carbon Dioxide 33 H BUN 27 H Glucose 175 H POC Glucose Calcium Magnesium Ferritin 1079.0 H Alkaline Phosphatase Lactate Dehydrogenase 708 H Total Creatine Kinase CK-MB (CK-2) C-Reactive Protein 6.10 H Albumin Triglycerides Arterial Blood Glucose Arterial Blood Ionized Calcium Coronavirus (PCR) SARS-CoV-2 IgG Ab 07/29/20 07/30/20 07/30/20 02:09 10:33 11:54 WBC MCV MCH MCHC RDW Lymph % (Auto) Lymph # (Auto) Seg Neutrophils % Lymphocytes % (Manual) Seg Neutrophils # Man Lymphocytes # (Manual) D-Dimer POC ABG pCO2 POC ABG pO2 ABG Hemoglobin ABG Oxyhemoglobin ABG Sodium ABG Potassium ABG Chloride ABG Glucose Sodium Chloride Carbon Dioxide BUN Glucose POC Glucose 183 H Calcium Magnesium 3.00 H Ferritin Alkaline Phosphatase Lactate Dehydrogenase Total Creatine Kinase 174 H CK-MB (CK-2) 4.5 H C-Reactive Protein Albumin Triglycerides Arterial Blood Glucose Arterial Blood Ionized Calcium Coronavirus (PCR) SARS-CoV-2 IgG Ab 07/30/20 07/30/20 07/31/20 17:30 23:08 11:04 WBC MCV MCH MCHC RDW Lymph % (Auto) Lymph # (Auto) Seg Neutrophils % Lymphocytes % (Manual) Seg Neutrophils # Man Lymphocytes # (Manual) D-Dimer POC ABG pCO2 POC ABG pO2 ABG Hemoglobin ABG Oxyhemoglobin ABG Sodium ABG Potassium ABG Chloride ABG Glucose Sodium 151 H D Chloride 109.2 H Carbon Dioxide 32 H BUN 48 H Glucose 165 H POC Glucose 199 H 194 H Calcium Magnesium Ferritin Alkaline Phosphatase 168 H Lactate Dehydrogenase Total Creatine Kinase CK-MB (CK-2) C-Reactive Protein Albumin 3.1 L Triglycerides Arterial Blood Glucose Arterial Blood Ionized Calcium Coronavirus (PCR) SARS-CoV-2 IgG Ab 07/31/20 07/31/20 07/31/20 11:18 11:23 17:47 WBC MCV MCH MCHC RDW Lymph % (Auto) Lymph # (Auto) Seg Neutrophils % Lymphocytes % (Manual) Seg Neutrophils # Man Lymphocytes # (Manual) D-Dimer POC ABG pCO2 56.6 H POC ABG pO2 73.1 L ABG Hemoglobin ABG Oxyhemoglobin 92.1 L ABG Sodium ABG Potassium ABG Chloride 108.0 H ABG Glucose 169 H Sodium Chloride Carbon Dioxide BUN Glucose POC Glucose 156 H 169 H Calcium Magnesium Ferritin Alkaline Phosphatase Lactate Dehydrogenase Total Creatine Kinase CK-MB (CK-2) C-Reactive Protein Albumin Triglycerides Arterial Blood Glucose 169 H Arterial Blood Ionized Calcium Coronavirus (PCR) SARS-CoV-2 IgG Ab 07/31/20 07/31/20 07/31/20 20:58 23:18 23:55 WBC 19.8 H MCV 95 H MCH MCHC RDW 13.0 L Lymph % (Auto) Lymph # (Auto) Seg Neutrophils % Lymphocytes % (Manual) Seg Neutrophils # Man Lymphocytes # (Manual) D-Dimer POC ABG pCO2 POC ABG pO2 ABG Hemoglobin ABG Oxyhemoglobin ABG Sodium ABG Potassium ABG Chloride ABG Glucose Sodium Chloride Carbon Dioxide BUN Glucose POC Glucose 293 H 211 H Calcium Magnesium Ferritin Alkaline Phosphatase Lactate Dehydrogenase Total Creatine Kinase CK-MB (CK-2) C-Reactive Protein Albumin Triglycerides Arterial Blood Glucose Arterial Blood Ionized Calcium Coronavirus (PCR) SARS-CoV-2 IgG Ab 08/01/20 08/01/20 08/01/20 03:47 08:30 12:27 WBC MCV MCH MCHC RDW Lymph % (Auto) Lymph # (Auto) Seg Neutrophils % Lymphocytes % (Manual) Seg Neutrophils # Man Lymphocytes # (Manual) D-Dimer POC ABG pCO2 49.8 H POC ABG pO2 123.4 H ABG Hemoglobin ABG Oxyhemoglobin ABG Sodium ABG Potassium 4.6 H ABG Chloride 111.0 H ABG Glucose 130 H Sodium 154 H Chloride 115.1 H Carbon Dioxide 32 H BUN 49 H Glucose 492 H POC Glucose 161 H Calcium 7.2 L D Magnesium Ferritin Alkaline Phosphatase Lactate Dehydrogenase Total Creatine Kinase CK-MB (CK-2) C-Reactive Protein Albumin Triglycerides Arterial Blood Glucose 130 H Arterial Blood Ionized Calcium 4.5 L Coronavirus (PCR) SARS-CoV-2 IgG Ab 08/01/20 08/01/20 08/02/20 16:55 23:06 05:00 WBC MCV MCH MCHC RDW Lymph % (Auto) Lymph # (Auto) Seg Neutrophils % Lymphocytes % (Manual) Seg Neutrophils # Man Lymphocytes # (Manual) D-Dimer POC ABG pCO2 52.5 H POC ABG pO2 69.8 L ABG Hemoglobin ABG Oxyhemoglobin ABG Sodium 147.2 H ABG Potassium ABG Chloride 110.0 H ABG Glucose 177 H Sodium Chloride Carbon Dioxide BUN Glucose POC Glucose 195 H 162 H Calcium Magnesium Ferritin Alkaline Phosphatase Lactate Dehydrogenase Total Creatine Kinase CK-MB (CK-2) C-Reactive Protein Albumin Triglycerides Arterial Blood Glucose 177 H Arterial Blood Ionized Calcium Coronavirus (PCR) SARS-CoV-2 IgG Ab 08/02/20 08/02/20 08/02/20 05:01 12:05 17:13 WBC MCV MCH MCHC RDW Lymph % (Auto) Lymph # (Auto) Seg Neutrophils % Lymphocytes % (Manual) Seg Neutrophils # Man Lymphocytes # (Manual) D-Dimer POC ABG pCO2 POC ABG pO2 ABG Hemoglobin ABG Oxyhemoglobin ABG Sodium ABG Potassium ABG Chloride ABG Glucose Sodium Chloride Carbon Dioxide BUN Glucose POC Glucose 146 H 166 H 209 H Calcium Magnesium Ferritin Alkaline Phosphatase Lactate Dehydrogenase Total Creatine Kinase CK-MB (CK-2) C-Reactive Protein Albumin Triglycerides Arterial Blood Glucose Arterial Blood Ionized Calcium Coronavirus (PCR) SARS-CoV-2 IgG Ab 08/02/20 08/03/20 08/03/20 23:26 04:06 04:34 WBC MCV MCH MCHC RDW Lymph % (Auto) Lymph # (Auto) Seg Neutrophils % Lymphocytes % (Manual) Seg Neutrophils # Man Lymphocytes # (Manual) D-Dimer POC ABG pCO2 55.6 H POC ABG pO2 66.1 L ABG Hemoglobin 11.9 L ABG Oxyhemoglobin 91.1 L ABG Sodium 145.7 H ABG Potassium 4.8 H ABG Chloride 111.0 H ABG Glucose 195 H Sodium Chloride Carbon Dioxide BUN Glucose POC Glucose 157 H Calcium Magnesium Ferritin Alkaline Phosphatase Lactate Dehydrogenase Total Creatine Kinase CK-MB (CK-2) C-Reactive Protein Albumin Triglycerides 207 H Arterial Blood Glucose 195 H Arterial Blood Ionized Calcium Coronavirus (PCR) SARS-CoV-2 IgG Ab 08/03/20 05:00 WBC MCV MCH MCHC RDW Lymph % (Auto) Lymph # (Auto) Seg Neutrophils % Lymphocytes % (Manual) Seg Neutrophils # Man Lymphocytes # (Manual) D-Dimer POC ABG pCO2 POC ABG pO2 ABG Hemoglobin ABG Oxyhemoglobin ABG Sodium ABG Potassium ABG Chloride ABG Glucose Sodium Chloride Carbon Dioxide BUN Glucose POC Glucose 179 H Calcium Magnesium Ferritin Alkaline Phosphatase Lactate Dehydrogenase Total Creatine Kinase CK-MB (CK-2) C-Reactive Protein Albumin Triglycerides Arterial Blood Glucose Arterial Blood Ionized Calcium Coronavirus (PCR) SARS-CoV-2 IgG Ab
[2020-08-03] MEDS ORDERED: MIDODRINE 5 MG TAB PO SCH (11:00)
[2020-08-03] MEDS: SENNOSIDES/DOCUSATE SODIUM 8.6/50 MG TAB PO SCH ×2 (11:59→21:11)
[2020-08-03] MEDS: LORazepam 2 MG/ML VIAL IV PRN (21:10)
[2020-08-03] MEDS: ENOXAPARIN 40 MG/0.4 ML INJ SUB-Q SCH (21:11)
[2020-08-03] MEDS: traZODone 50 MG TAB PO SCH (21:11)
--- NOTE | 2020-08-03 23:46 | Progress Note ---
Assessment and Plan Critical care statement The high probability OF a clinically significant sudden or life-threatening deterioration of the cardiorespiratory system and endocrine system required my full and direct attention, intervention and postoperative management. The aggregate critical care time was 40 minutes. The time is in addition to time spent performing reported procedures but includes the followin: Data review and interpretation 2: Patient assessment and monitoring of vital signs 3: Documentation 4:: Medication orders and management Assessment and Plan Patient with acute hypoxemic respiratory failure on high flow oxygen COVID-19 pneumonia, persistent hypoxemia, remains on high flow oxygen 40 L/100%/O2 sats 91+ nonrebreather, critically ill with poor prognosis, patient and family aware --Acute hypoxc respiratory failure Current Visit: Yes Status: Acute Plan to address problem: On vent PEEP 14 Weaning in progress Hypernatremia increase water intake Acute hypoxic respiratory failure -rapid response 07/24/2020 Patient has removed the oxygen, and went into severe hypoxemia Code met was called, respiratory be adjusted oxygen settings Patient feels better, updated --COVID-19 positive Continue contact and droplet isolation, IV dexamethasone for total 4/9 days IV remdesivir per ID / Patient is already on high flow oxygen Prone position as tolerated, inflammatory markers Anticoagulation per protocol, and supportive care Patient is critically ill, poor prognosis SARS to Covid IgG antibodies positive, no indication for convalescent --Elevated D-dimers; CTA chest negative for PE, mild pulmonary edema, I will add Lasix 40 mg IV 1 dose now, and daily thereafter lower extremity venous Doppler, negative for DVT -- Pneumonia Current Visit: Yes Status: Acute Plan to address problem: Continue empiric IV antibiotics. Procalcitonin is elevated In view of patient's pneumonia and severe hypoxia Elevated D-dimers will get CTA chest to rule out PE -- DVT prophylaxis Current Visit: Yes Status: Acute Plan to address problem: Patient placed on subcutaneous Lovenox. -- Full code status Current Visit: Yes Status: Acute Plan to address problem: Patient is a full code. Subjective Date of service: 08/03/20 Principal diagnosis: Acute respiratory failure with hypoxia, Covid pneumonia Interval history: History Interval history: I have seen and examined the patient at the bedside Isolation precautions PPE protocol strictly followed Patient remains critically ill Requiring high flow oxygen Shortness of breath Vital signs reviewed Patient continues to be on high levels of oxygen Closely monitor the patient and adjust management as needed Follow CTA chest, and inflammatory markers Consults recommendations noted and appreciated Plan of care reviewed with the patient and his nurse 07/20; patient is severely hypoxemic, on high flow oxygen 40 L/100%/O2 sats 95 Elevated D-dimers, patient is severely hypoxemic, will check CTA chest to rule out PE Also consider lower extremity venous Doppler to rule out DVT 07/21: Patient remains on high flow oxygen however mild improvement from 40 L to 35 l Tolerating prone position, continue steroids remdesivir CTA chest negative for PE, lower extremity venous Doppler negative for DVT Consults recommendations noted and appreciated Poor prognosis, patient is aware 07/22/2020; patient feels slightly better remains on high flow oxygen however lower than yesterday 35 L/95% /O2 sat 94% 07/21/2020 advised the patient to rest in prone position as tolerated Home oxygen evaluation 07/23/2020; remains on high flow oxygen, continue steroids remdesivir, prone position and comfort care Patient is critically ill with very poor prognosis and prolonged hypoxemia on high flow oxygen Plan of care reviewed with the patient and his nurse 07/24/2020; patient was severely hypoxemic rapid response called oxygen settings adjusted patient is currently better, requiring high flow oxygen right from the day he was admitted, poor prognosis, discussed with patient's 07/25/2020; patient remains on high flow oxygen in mild distress, overall prognosis poor I discussed with , and family friend physician extensively yesterday Poor prognosis continue current management 07/26/2020; patient remains on high flow oxygen 40 L/100%/95% O2 sat +100% nonrebreather Patient is critically ill, poor prognosis, ID pulmonary following 07/27/2020; patient remains on high flow oxygen 40 L/100%/[address] 100% nonrebreather Very poor prognosis, patient and family aware Pulmonary recommendations noted and appreciated 07/28/2020; patient remains critically ill, remains dependent on high flow oxygen 40 L +100% nonrebreather Very poor prognosis. 07/29/2020 Remains critically ill On high flow oxygen 07/30/2020 On high flow oxygen Is critically ill 07/31/2020 On high flow oxygen Critically ill 08/01/2020 on high flow oxygen Critically ill 08/02/2020 Weaning in progress 08/03/2020 Increased PEEP to 14 and RT will attempt to wean FiO2 back down to 50's. Will continue steroids at current dosing for now. He has already completed to original 10 days. Given some improvement, would like to continue. Overall prognosis remains very guarded. Objective - Constitutional Vitals: Vital Signs - 12hr 08/03/20 08/03/20 08/03/20 11:46 12:00 12:07 Temperature Pulse Rate 108 H 107 H 110 H Pulse Rate [ 105 H From Monitor] Respiratory 30 H 12 Rate Blood Pressure 127/81 141/84 141/84 O2 Sat by Pulse 91 88 94 Oximetry 08/03/20 08/03/20 08/03/20 12:16 12:30 12:46 Temperature Pulse Rate 109 H 118 H 108 H Pulse Rate [ From Monitor] Respiratory 19 14 27 H Rate Blood Pressure 141/84 150/80 150/80 O2 Sat by Pulse 87 80 L 97 Oximetry 08/03/20 08/03/20 08/03/20 13:00 13:16 13:30 Temperature Pulse Rate 109 H 110 H 108 H Pulse Rate [ From Monitor] Respiratory 19 26 H 30 H Rate Blood Pressure 144/77 144/77 140/80 O2 Sat by Pulse 93 98 93 Oximetry 08/03/20 08/03/20 08/03/20 13:46 14:00 14:16 Temperature Pulse Rate 107 H 109 H 105 H Pulse Rate [ From Monitor] Respiratory 30 H 30 H 30 H Rate Blood Pressure 140/80 138/78 138/78 O2 Sat by Pulse 98 93 99 Oximetry 08/03/20 08/03/20 08/03/20 14:30 14:46 15:00 Temperature Pulse Rate 103 H 105 H 104 H Pulse Rate [ From Monitor] Respiratory 30 H 28 H 28 H Rate Blood Pressure 139/78 139/78 122/72 O2 Sat by Pulse 94 98 92 Oximetry 08/03/20 08/03/20 08/03/20 15:16 15:30 15:40 Temperature Pulse Rate 101 H 101 H 103 H Pulse Rate [ From Monitor] Respiratory 30 H 30 H Rate Blood Pressure 122/72 124/76 124/76 O2 Sat by Pulse 99 93 99 Oximetry 08/03/20 08/03/20 08/03/20 15:46 16:00 16:16 Temperature Pulse Rate 101 H 101 H 100 H Pulse Rate [ 103 H From Monitor] Respiratory 30 H 30 H 30 H Rate Blood Pressure 124/76 123/68 123/68 O2 Sat by Pulse 98 95 98 Oximetry 08/03/20 08/03/20 08/03/20 16:30 16:46 17:00 Temperature Pulse Rate 100 H 99 H 97 H Pulse Rate [ From Monitor] Respiratory 30 H 30 H 30 H Rate Blood Pressure 137/74 137/74 137/76 O2 Sat by Pulse 94 98 95 Oximetry 08/03/20 08/03/20 08/03/20 17:16 17:30 17:46 Temperature Pulse Rate 100 H 104 H 105 H Pulse Rate [ From Monitor] Respiratory 30 H 30 H 30 H Rate Blood Pressure 137/76 138/81 138/81 O2 Sat by Pulse 98 92 96 Oximetry 08/03/20 08/03/20 08/03/20 18:00 18:16 18:30 Temperature Pulse Rate 106 H 105 H 110 H Pulse Rate [ From Monitor] Respiratory 30 H 25 H 26 H Rate Blood Pressure 138/81 154/85 144/84 O2 Sat by Pulse 93 95 92 Oximetry 08/03/20 08/03/20 08/03/20 18:46 19:00 19:16 Temperature Pulse Rate 110 H 123 H 168 H Pulse Rate [ From Monitor] Respiratory 29 H 22 28 H Rate Blood Pressure 144/84 137/84 137/84 O2 Sat by Pulse 94 91 95 Oximetry 08/03/20 08/03/20 08/03/20 19:30 19:46 19:55 Temperature Pulse Rate 175 H 101 H 102 H Pulse Rate [ From Monitor] Respiratory 30 H 30 H 30 H Rate Blood Pressure 119/67 119/67 119/67 O2 Sat by Pulse 99 96 Oximetry 08/03/20 08/03/20 08/03/20 20:00 20:16 20:30 Temperature 99.8 F H Pulse Rate 100 H 107 H 97 H Pulse Rate [ 160 H From Monitor] Respiratory 27 H 28 H 30 H Rate Blood Pressure 124/73 124/73 128/73 O2 Sat by Pulse 92 96 92 Oximetry 08/03/20 08/03/20 08/03/20 20:46 21:00 21:16 Temperature Pulse Rate 160 H 159 H 102 H Pulse Rate [ From Monitor] Respiratory 28 H 28 H 30 H Rate Blood Pressure 128/73 128/73 128/73 O2 Sat by Pulse 93 94 95 Oximetry 08/03/20 08/03/2008/03/21 21:30 21:46 22:00 Temperature Pulse Rate 108 H 105 H 107 H Pulse Rate [ From Monitor] Respiratory 30 H 30 H 30 H Rate Blood Pressure 112/65 112/65 118/67 O2 Sat by Pulse 92 97 94 Oximetry 08/03/20 08/03/20 08/03/20 22:16 22:30 22:46 Temperature Pulse Rate 105 H 105 H 102 H Pulse Rate [ From Monitor] Respiratory 30 H 28 H 28 H Rate Blood Pressure 112/65 107/69 107/69 O2 Sat by Pulse 97 92 96 Oximetry 08/03/20 08/03/20 23:00 23:39 Temperature 99.7 F H Pulse Rate 102 H Pulse Rate [ From Monitor] Respiratory 24 Rate Blood Pressure 122/69 O2 Sat by Pulse 92 Oximetry General appearance: Present: no acute distress, well-nourished - EENT Eyes: PERRL, EOM intact ENT: hearing intact, clear oral mucosa Ears: bilateral: normal - Neck Neck: supple, normal ROM - Respiratory Respiratory effort: normal Respiratory: bilateral: CTA - Breasts Breasts: normal - Cardiovascular Rhythm: regular Heart Sounds: Present: S1 & S2. Absent: gallop, rub Extremities: pulses intact, No edema, normal color, Full ROM - Gastrointestinal General gastrointestinal: Present: soft, non-tender, non-distended, normal bowel sounds - Genitourinary Male genitourinary: normal - Integumentary Integumentary: clear, warm, dry - Musculoskeletal Musculoskeletal: 1, strength equal bilaterally - Neurologic Neurologic: moves all extremities - Psychiatric Psychiatric: memory intact, appropriate mood/affect, intact judgment & insight - Labs CBC & Chem 7: 08/06/20 08:59 08/06/20 08:59 Labs: Abnormal lab results 08/03/20 08/03/20 08/03/20 Range/Units 04:06 04:34 05:00 POC ABG pCO2 55.6 H (32.0-48.0) mmHg POC ABG pO2 66.1 L (83-108) mmHg ABG Hemoglobin 11.9 L (12.0-17.5) ABG Oxyhemoglobin 91.1 L (94-98) ABG Sodium 145.7 H (136.0-145.0) mmol/L ABG Potassium 4.8 H (3.40-4.50) mmol/L ABG Chloride 111.0 H (98-107) mmol/L ABG Glucose 195 H (65-95) mg/dL POC Glucose 179 H (70-105) mg/dL Triglycerides 207 H (2-149) mg/dL Arterial Blood Glucose 195 H (65-95) mg/dL 08/03/20 08/03/20 08/03/20 Range/Units 11:55 17:15 23:01 POC ABG pCO2 (32.0-48.0) mmHg POC ABG pO2 (83-108) mmHg ABG Hemoglobin (12.0-17.5) ABG Oxyhemoglobin (94-98) ABG Sodium (136.0-145.0) mmol/L ABG Potassium (3.40-4.50) mmol/L ABG Chloride (98-107) mmol/L ABG Glucose (65-95) mg/dL POC Glucose 173 H 217 H 222 H (70-105) mg/dL Triglycerides (2-149) mg/dL Arterial Blood Glucose (65-95) mg/dL HEART Score - HEART Score Troponin: Troponin T 0.018 ng/mL (0.00-0.029) 07/30/20 10:33
[2020-08-04] MEDS: fentaNYL DRIP Premix 2,000 MCG/100 ML BAG IV SCH ×4 (04:28→21:37)
[2020-08-04 07:52] LABS: BUN/Creatinine Ratio 40; Blood Urea Nitrogen 32 mg/dL (9-20); Calcium 8.2 mg/dL (8.4-10.2); Hemolysis Index 1
[2020-08-04] MEDS: FAMOTIDINE 20 MG TAB PO SCH ×2 (10:30→21:34)
[2020-08-04] MEDS: dexAMETHasone 4 MG/ML VIAL IV SCH (10:30)
[2020-08-04] MEDS: SENNOSIDES/DOCUSATE SODIUM 8.6/50 MG TAB PO SCH ×2 (10:30→21:34)
--- NOTE | 2020-08-04 10:54 | Progress Note ---
Assessment and Plan 60 y/o male with chest discomfort, shortness of breath and abnormal CXR, COVID Positive 08/04/20: Will increase PEEP to 16 today. If no improvement in the next 24 hours then will start proning patient tomorrow night. Continue steroids. Overall prognosis remains very guarded. 08/03/20: Chemistry not ordered, ordered today. Follow up blood cultures. Increased PEEP to 14 and RT will attempt to wean FiO2 back down to 50's. Will continue steroids at current dosing for now. He has already completed to original 10 days. Given some improvement, would like to continue. Overall prognosis remains very guarded. 08/02/20: Check blood and urine cultures along with UA. Will check repeat CXR. Repeat Chemistry tomorrow. Hold on abx therapy for right now. Prognosis remains guarded. Continue steroids. Wean FiO2 for sats >88% 08/01/20: Overall prognosis here is very very guarded to poor. Will consider proning patient later today if not able to wean FiO2 any further this afternoon. Per CM, wants to come see patient which is very reasonable. Will continue steroids despite completing 10 days of this. 07/29/20: Supportive measures. Proning and wean as tolerated. 07/28/20: No new recommendations as of right now. When beds become available will move patient down stairs for closer monitoring. 07/27/20: Difficult situation. Patient appears to be not responding to any therapy. Steroids finished yesterday. Given the degree of inflammation will restart steroids for at least another 72-96 hours. In no improvement will stop. Not much else to do medical therapy [place]. Continue to keep patient net negative. Still remains high risk for intubation and if intubated given his current response to steroids, very high mortality. 07/26/20: No new recs for today. Patient really needs to try to prone as much as possible during the day and sleep prone at night. He remains a high risk for cardiac arrest and intubation. 07/25/20: very high risk for cardiac arrest from hypoxemia, but no available beds in ICU. Given COVID status, ideally would not like to use bipap but may have to in the event of continued desats. While proning does better and does not need the mask along with HFNC. Encourage to prone as long as possible. 1. Continue steroids for 10 days. 2. Continue Remdesivir. Not a candidate for Convalescent Plasma 3. Please ask patient prone as tolerated during the day and sleep prone at night. Currently doing and tolerating 4. Agree with daily lasix but will need labs to monitor renal function and electrolytes. Needs labs for today. 5. Guarded prognosis to poor now with increasing oxygen requirement. May require intubation and high risk for cardiac arrest. CCT 31 Subjective Date of service: 08/04/20 Principal diagnosis: Acute respiratory failure with hypoxia, Covid pneumonia Interval history: Had HR in the 180's last night. Per nursing given ativan and that relaxed patient. Follows commands on minimal sedation. FiO2 still at 55 with sat on monitor of 90. Objective Vital Signs - 12hr 08/03/20 08/03/20 08/03/20 23:00 23:16 23:30 Temperature Pulse Rate 102 H 120 H 101 H Pulse Rate [ From Monitor] Respiratory 24 30 H 30 H Rate Blood Pressure 122/69 122/69 121/67 O2 Sat by Pulse 92 96 93 Oximetry 08/03/20 08/03/20 08/03/20 23:39 23:46 23:48 Temperature 99.7 F H Pulse Rate 99 H 101 H Pulse Rate [ From Monitor] Respiratory 30 H Rate Blood Pressure 121/67 121/67 O2 Sat by Pulse 96 96 Oximetry 08/04/20 08/04/20 08/04/20 00:00 00:16 00:30 Temperature Pulse Rate 103 H 98 H 107 H Pulse Rate [ 96 H From Monitor] Respiratory 28 H 30 H 30 H Rate Blood Pressure 122/68 122/68 118/70 O2 Sat by Pulse 92 96 94 Oximetry 08/04/20 08/04/20 08/04/20 00:46 01:00 01:16 Temperature Pulse Rate 96 H 97 H 100 H Pulse Rate [ From Monitor] Respiratory 30 H 30 H 25 H Rate Blood Pressure 118/70 119/67 119/67 O2 Sat by Pulse 96 91 96 Oximetry 08/04/20 08/04/20 08/04/20 01:30 01:46 02:00 Temperature Pulse Rate 96 H 108 H 94 H Pulse Rate [ From Monitor] Respiratory 30 H 30 H 29 H Rate Blood Pressure 123/68 123/68 123/68 O2 Sat by Pulse 94 97 96 Oximetry 08/04/20 08/04/20 08/04/20 02:16 02:30 02:46 Temperature Pulse Rate 112 H 94 H 96 H Pulse Rate [ From Monitor] Respiratory 28 H 30 H 30 H Rate Blood Pressure 133/73 127/68 127/68 O2 Sat by Pulse 96 95 96 Oximetry 08/04/20 08/04/20 08/04/20 03:10 03:16 03:30 Temperature Pulse Rate 111 H 96 H 95 H Pulse Rate [ From Monitor] Respiratory 30 H 30 H 30 H Rate Blood Pressure 118/71 O2 Sat by Pulse 96 96 93 Oximetry 08/04/20 08/04/20 08/04/20 03:46 04:00 04:16 Temperature 99.9 F H Pulse Rate 94 H 100 H 97 H Pulse Rate [ 90 From Monitor] Respiratory 30 H 24 28 H Rate Blood Pressure 118/71 109/65 109/65 O2 Sat by Pulse 96 93 95 Oximetry 08/04/20 08/04/20 08/04/20 04:30 04:46 05:00 Temperature Pulse Rate 107 H 87 89 Pulse Rate [ From Monitor] Respiratory 30 H 30 H 30 H Rate Blood Pressure 115/62 115/62 112/60 O2 Sat by Pulse 93 88 90 Oximetry 08/04/20 08/04/20 08/04/20 05:16 05:28 05:30 Temperature Pulse Rate 90 90 89 Pulse Rate [ From Monitor] Respiratory 30 H 30 H Rate Blood Pressure 112/60 116/61 116/61 O2 Sat by Pulse 93 95 95 Oximetry 08/04/20 08/04/20 08/04/20 05:46 06:00 06:16 Temperature Pulse Rate 96 H 93 H 90 Pulse Rate [ From Monitor] Respiratory 30 H 30 H 30 H Rate Blood Pressure 116/61 105/59 105/59 O2 Sat by Pulse 97 93 96 Oximetry 08/04/20 08/04/20 08/04/20 06:30 06:46 07:00 Temperature Pulse Rate 111 H 95 H 94 H Pulse Rate [ From Monitor] Respiratory 30 H 23 16 Rate Blood Pressure 98/56 98/56 111/87 O2 Sat by Pulse 95 96 95 Oximetry 08/04/20 08/04/20 08/04/20 07:16 07:30 07:46 Temperature Pulse Rate 95 H 96 H 98 H Pulse Rate [ From Monitor] Respiratory 23 24 17 Rate Blood Pressure 111/87 113/59 113/59 O2 Sat by Pulse 95 93 94 Oximetry 08/04/20 08/04/20 08/04/20 07:52 08:00 08:16 Temperature Pulse Rate 93 H 95 H 94 H Pulse Rate [ From Monitor] Respiratory 28 H 30 H Rate Blood Pressure 105/59 122/62 122/62 O2 Sat by Pulse 93 95 Oximetry 08/04/20 08/04/20 08/04/20 08:30 08:46 09:00 Temperature Pulse Rate 94 H 95 H 95 H Pulse Rate [ From Monitor] Respiratory 18 20 24 Rate Blood Pressure 110/64 110/64 120/66 O2 Sat by Pulse 93 95 95 Oximetry 08/04/20 08/04/20 08/04/20 09:16 09:30 09:46 Temperature Pulse Rate 99 H 97 H 98 H Pulse Rate [ From Monitor] Respiratory 19 21 30 H Rate Blood Pressure 120/66 116/64 116/64 O2 Sat by Pulse 95 93 96 Oximetry 08/04/20 08/04/20 10:00 10:16 Temperature Pulse Rate 94 H 107 H Pulse Rate [ From Monitor] Respiratory 30 H 30 H Rate Blood Pressure 115/70 115/70 O2 Sat by Pulse 91 95 Oximetry Constitutional: other (orally intubated on vent) Eyes: non-icteric ENT: oropharynx moist Neck: supple Ascultation: Bilateral: diminished breath sounds, rhonchi Cardiovascular: regular rate and rhythm, other (tachycardia) Gastrointestinal: normoactive bowel sounds, soft, non-tender, non-distended Integumentary: normal Extremities: no cyanosis Neurologic: normal mental status, non-focal exam CBC and BMP: 07/31/20 23:55 08/04/20 06:57 ABG, PT/INR, D-dimer: ABG ABG pH 7.394 (7.320-7.450) 08/04/20 03:59 POC ABG pCO2 54.6 mmHg (32.0-48.0) H 08/04/20 03:59 POC ABG pO2 66.2 mmHg (83-108) L 08/04/20 03:59 POC ABG HCO3 32.6 08/04/20 03:59 PT/INR, D-dimer PT 13.7 Sec. (12.2-14.9) 07/18/20 04:31 INR 1.06 (0.87-1.13) 07/18/20 04:31 D-Dimer > 99188 ng/mlDDU (0-234) H 07/26/20 10:07 Abnormal lab findings: Abnormal Labs 07/17/20 07/17/20 07/17/20 17:30 17:30 22:48 WBC MCV MCH MCHC 35 H RDW Lymph % (Auto) 10.5 L Lymph # (Auto) 0.7 L Seg Neutrophils % 85.3 H Lymphocytes % (Manual) Seg Neutrophils # Man Lymphocytes # (Manual) D-Dimer 314.21 H POC ABG pCO2 POC ABG pO2 ABG Hemoglobin ABG Oxyhemoglobin ABG Sodium ABG Potassium ABG Chloride ABG Glucose Sodium Chloride Carbon Dioxide BUN 1 L Glucose 154 H POC Glucose Calcium Magnesium Ferritin Alkaline Phosphatase Lactate Dehydrogenase Total Creatine Kinase CK-MB (CK-2) C-Reactive Protein Albumin Triglycerides Arterial Blood Glucose Arterial Blood Ionized Calcium Coronavirus (PCR) SARS-CoV-2 IgG Ab 07/17/20 07/17/20 07/18/20 22:48 22:48 04:31 WBC MCV MCH 33 H MCHC 35 H RDW 13.1 L Lymph % (Auto) Lymph # (Auto) Seg Neutrophils % Lymphocytes % (Manual) 5.0 L Seg Neutrophils # Man 8.1 H Lymphocytes # (Manual) 0.4 L D-Dimer POC ABG pCO2 POC ABG pO2 ABG Hemoglobin ABG Oxyhemoglobin ABG Sodium ABG Potassium ABG Chloride ABG Glucose Sodium Chloride Carbon Dioxide BUN Glucose 124 H POC Glucose Calcium Magnesium Ferritin 889.3 H Alkaline Phosphatase Lactate Dehydrogenase 832 H Total Creatine Kinase CK-MB (CK-2) C-Reactive Protein 17.70 H Albumin Triglycerides Arterial Blood Glucose Arterial Blood Ionized Calcium Coronavirus (PCR) SARS-CoV-2 IgG Ab 07/18/20 07/18/20 07/18/20 04:31 08:50 18:48 WBC MCV MCH MCHC RDW Lymph % (Auto) Lymph # (Auto) Seg Neutrophils % Lymphocytes % (Manual) Seg Neutrophils # Man Lymphocytes # (Manual) D-Dimer 275.27 H POC ABG pCO2 POC ABG pO2 ABG Hemoglobin ABG Oxyhemoglobin ABG Sodium ABG Potassium ABG Chloride ABG Glucose Sodium Chloride Carbon Dioxide 31 H D BUN 23 H Glucose 143 H POC Glucose Calcium Magnesium Ferritin Alkaline Phosphatase Lactate Dehydrogenase Total Creatine Kinase CK-MB (CK-2) C-Reactive Protein Albumin Triglycerides Arterial Blood Glucose Arterial Blood Ionized Calcium Coronavirus (PCR) Positive A SARS-CoV-2 IgG Ab 07/18/20 07/18/20 07/20/20 18:48 18:48 08:56 WBC MCV MCH MCHC RDW Lymph % (Auto) Lymph # (Auto) Seg Neutrophils % Lymphocytes % (Manual) Seg Neutrophils # Man Lymphocytes # (Manual) D-Dimer POC ABG pCO2 POC ABG pO2 ABG Hemoglobin ABG Oxyhemoglobin ABG Sodium ABG Potassium ABG Chloride ABG Glucose Sodium Chloride Carbon Dioxide BUN 22 H Glucose 219 H POC Glucose Calcium Magnesium Ferritin 1164.0 H Alkaline Phosphatase Lactate Dehydrogenase 560 H 739 H Total Creatine Kinase CK-MB (CK-2) C-Reactive Protein 18.00 H 17.50 H Albumin 3.0 L Triglycerides Arterial Blood Glucose Arterial Blood Ionized Calcium Coronavirus (PCR) SARS-CoV-2 IgG Ab 07/20/20 07/20/20 07/21/20 08:56 08:56 05:24 WBC MCV MCH MCHC RDW Lymph % (Auto) Lymph # (Auto) Seg Neutrophils % Lymphocytes % (Manual) Seg Neutrophils # Man Lymphocytes # (Manual) D-Dimer 9523.70 H POC ABG pCO2 POC ABG pO2 ABG Hemoglobin ABG Oxyhemoglobin ABG Sodium ABG Potassium ABG Chloride ABG Glucose Sodium Chloride Carbon Dioxide BUN Glucose POC Glucose Calcium Magnesium Ferritin 1581.0 H Alkaline Phosphatase Lactate Dehydrogenase Total Creatine Kinase CK-MB (CK-2) C-Reactive Protein Albumin Triglycerides Arterial Blood Glucose Arterial Blood Ionized Calcium Coronavirus (PCR) SARS-CoV-2 IgG Ab Reactive A 07/22/20 07/24/20 07/26/20 04:31 13:26 10:07 WBC MCV MCH MCHC RDW Lymph % (Auto) Lymph # (Auto) Seg Neutrophils % Lymphocytes % (Manual) Seg Neutrophils # Man Lymphocytes # (Manual) D-Dimer > 62689 H POC ABG pCO2 POC ABG pO2 ABG Hemoglobin ABG Oxyhemoglobin ABG Sodium ABG Potassium ABG Chloride ABG Glucose Sodium 146 H Chloride Carbon Dioxide 32 H BUN 28 H 26 H Glucose 144 H 116 H POC Glucose Calcium 8.3 L Magnesium Ferritin Alkaline Phosphatase Lactate Dehydrogenase Total Creatine Kinase CK-MB (CK-2) C-Reactive Protein Albumin 3.3 L Triglycerides Arterial Blood Glucose Arterial Blood Ionized Calcium Coronavirus (PCR) SARS-CoV-2 IgG Ab 07/26/20 07/26/20 07/27/20 10:07 10:07 19:45 WBC MCV MCH MCHC RDW Lymph % (Auto) Lymph # (Auto) Seg Neutrophils % Lymphocytes % (Manual) Seg Neutrophils # Man Lymphocytes # (Manual) D-Dimer POC ABG pCO2 POC ABG pO2 ABG Hemoglobin ABG Oxyhemoglobin ABG Sodium ABG Potassium ABG Chloride ABG Glucose Sodium Chloride 97.4 L Carbon Dioxide 33 H BUN 27 H Glucose 175 H POC Glucose Calcium Magnesium Ferritin 1079.0 H Alkaline Phosphatase Lactate Dehydrogenase 708 H Total Creatine Kinase CK-MB (CK-2) C-Reactive Protein 6.10 H Albumin Triglycerides Arterial Blood Glucose Arterial Blood Ionized Calcium Coronavirus (PCR) SARS-CoV-2 IgG Ab 07/29/20 07/30/20 07/30/20 02:09 10:33 11:54 WBC MCV MCH MCHC RDW Lymph % (Auto) Lymph # (Auto) Seg Neutrophils % Lymphocytes % (Manual) Seg Neutrophils # Man Lymphocytes # (Manual) D-Dimer POC ABG pCO2 POC ABG pO2 ABG Hemoglobin ABG Oxyhemoglobin ABG Sodium ABG Potassium ABG Chloride ABG Glucose Sodium Chloride Carbon Dioxide BUN Glucose POC Glucose 183 H Calcium Magnesium 3.00 H Ferritin Alkaline Phosphatase Lactate Dehydrogenase Total Creatine Kinase 174 H CK-MB (CK-2) 4.5 H C-Reactive Protein Albumin Triglycerides Arterial Blood Glucose Arterial Blood Ionized Calcium Coronavirus (PCR) SARS-CoV-2 IgG Ab 07/30/20 07/30/20 07/31/20 17:30 23:08 11:04 WBC MCV MCH MCHC RDW Lymph % (Auto) Lymph # (Auto) Seg Neutrophils % Lymphocytes % (Manual) Seg Neutrophils # Man Lymphocytes # (Manual) D-Dimer POC ABG pCO2 POC ABG pO2 ABG Hemoglobin ABG Oxyhemoglobin ABG Sodium ABG Potassium ABG Chloride ABG Glucose Sodium 151 H D Chloride 109.2 H Carbon Dioxide 32 H BUN 48 H Glucose 165 H POC Glucose 199 H 194 H Calcium Magnesium Ferritin Alkaline Phosphatase 168 H Lactate Dehydrogenase Total Creatine Kinase CK-MB (CK-2) C-Reactive Protein Albumin 3.1 L Triglycerides Arterial Blood Glucose Arterial Blood Ionized Calcium Coronavirus (PCR) SARS-CoV-2 IgG Ab 07/31/20 07/31/20 07/31/20 11:18 11:23 17:47 WBC MCV MCH MCHC RDW Lymph % (Auto) Lymph # (Auto) Seg Neutrophils % Lymphocytes % (Manual) Seg Neutrophils # Man Lymphocytes # (Manual) D-Dimer POC ABG pCO2 56.6 H POC ABG pO2 73.1 L ABG Hemoglobin ABG Oxyhemoglobin 92.1 L ABG Sodium ABG Potassium ABG Chloride 108.0 H ABG Glucose 169 H Sodium Chloride Carbon Dioxide BUN Glucose POC Glucose 156 H 169 H Calcium Magnesium Ferritin Alkaline Phosphatase Lactate Dehydrogenase Total Creatine Kinase CK-MB (CK-2) C-Reactive Protein Albumin Triglycerides Arterial Blood Glucose 169 H Arterial Blood Ionized Calcium Coronavirus (PCR) SARS-CoV-2 IgG Ab 07/31/20 07/31/20 07/31/20 20:58 23:18 23:55 WBC 19.8 H MCV 95 H MCH MCHC RDW 13.0 L Lymph % (Auto) Lymph # (Auto) Seg Neutrophils % Lymphocytes % (Manual) Seg Neutrophils # Man Lymphocytes # (Manual) D-Dimer POC ABG pCO2 POC ABG pO2 ABG Hemoglobin ABG Oxyhemoglobin ABG Sodium ABG Potassium ABG Chloride ABG Glucose Sodium Chloride Carbon Dioxide BUN Glucose POC Glucose 293 H 211 H Calcium Magnesium Ferritin Alkaline Phosphatase Lactate Dehydrogenase Total Creatine Kinase CK-MB (CK-2) C-Reactive Protein Albumin Triglycerides Arterial Blood Glucose Arterial Blood Ionized Calcium Coronavirus (PCR) SARS-CoV-2 IgG Ab 08/01/20 08/01/20 08/01/20 03:47 08:30 12:27 WBC MCV MCH MCHC RDW Lymph % (Auto) Lymph # (Auto) Seg Neutrophils % Lymphocytes % (Manual) Seg Neutrophils # Man Lymphocytes # (Manual) D-Dimer POC ABG pCO2 49.8 H POC ABG pO2 123.4 H ABG Hemoglobin ABG Oxyhemoglobin ABG Sodium ABG Potassium 4.6 H ABG Chloride 111.0 H ABG Glucose 130 H Sodium 154 H Chloride 115.1 H Carbon Dioxide 32 H BUN 49 H Glucose 492 H POC Glucose 161 H Calcium 7.2 L D Magnesium Ferritin Alkaline Phosphatase Lactate Dehydrogenase Total Creatine Kinase CK-MB (CK-2) C-Reactive Protein Albumin Triglycerides Arterial Blood Glucose 130 H Arterial Blood Ionized Calcium 4.5 L Coronavirus (PCR) SARS-CoV-2 IgG Ab 08/01/20 08/01/20 08/02/20 16:55 23:06 05:00 WBC MCV MCH MCHC RDW Lymph % (Auto) Lymph # (Auto) Seg Neutrophils % Lymphocytes % (Manual) Seg Neutrophils # Man Lymphocytes # (Manual) D-Dimer POC ABG pCO2 52.5 H POC ABG pO2 69.8 L ABG Hemoglobin ABG Oxyhemoglobin ABG Sodium 147.2 H ABG Potassium ABG Chloride 110.0 H ABG Glucose 177 H Sodium Chloride Carbon Dioxide BUN Glucose POC Glucose 195 H 162 H Calcium Magnesium Ferritin Alkaline Phosphatase Lactate Dehydrogenase Total Creatine Kinase CK-MB (CK-2) C-Reactive Protein Albumin Triglycerides Arterial Blood Glucose 177 H Arterial Blood Ionized Calcium Coronavirus (PCR) SARS-CoV-2 IgG Ab 08/02/20 08/02/20 08/02/20 05:01 12:05 17:13 WBC MCV MCH MCHC RDW Lymph % (Auto) Lymph # (Auto) Seg Neutrophils % Lymphocytes % (Manual) Seg Neutrophils # Man Lymphocytes # (Manual) D-Dimer POC ABG pCO2 POC ABG pO2 ABG Hemoglobin ABG Oxyhemoglobin ABG Sodium ABG Potassium ABG Chloride ABG Glucose Sodium Chloride Carbon Dioxide BUN Glucose POC Glucose 146 H 166 H 209 H Calcium Magnesium Ferritin Alkaline Phosphatase Lactate Dehydrogenase Total Creatine Kinase CK-MB (CK-2) C-Reactive Protein Albumin Triglycerides Arterial Blood Glucose Arterial Blood Ionized Calcium Coronavirus (PCR) SARS-CoV-2 IgG Ab 08/02/20 08/03/20 08/03/20 23:26 04:06 04:34 WBC MCV MCH MCHC RDW Lymph % (Auto) Lymph # (Auto) Seg Neutrophils % Lymphocytes % (Manual) Seg Neutrophils # Man Lymphocytes # (Manual) D-Dimer POC ABG pCO2 55.6 H POC ABG pO2 66.1 L ABG Hemoglobin 11.9 L ABG Oxyhemoglobin 91.1 L ABG Sodium 145.7 H ABG Potassium 4.8 H ABG Chloride 111.0 H ABG Glucose 195 H Sodium Chloride Carbon Dioxide BUN Glucose POC Glucose 157 H Calcium Magnesium Ferritin Alkaline Phosphatase Lactate Dehydrogenase Total Creatine Kinase CK-MB (CK-2) C-Reactive Protein Albumin Triglycerides 207 H Arterial Blood Glucose 195 H Arterial Blood Ionized Calcium Coronavirus (PCR) SARS-CoV-2 IgG Ab 08/03/20 08/03/20 08/03/20 05:00 11:55 17:15 WBC MCV MCH MCHC RDW Lymph % (Auto) Lymph # (Auto) Seg Neutrophils % Lymphocytes % (Manual) Seg Neutrophils # Man Lymphocytes # (Manual) D-Dimer POC ABG pCO2 POC ABG pO2 ABG Hemoglobin ABG Oxyhemoglobin ABG Sodium ABG Potassium ABG Chloride ABG Glucose Sodium Chloride Carbon Dioxide BUN Glucose POC Glucose 179 H 173 H 217 H Calcium Magnesium Ferritin Alkaline Phosphatase Lactate Dehydrogenase Total Creatine Kinase CK-MB (CK-2) C-Reactive Protein Albumin Triglycerides Arterial Blood Glucose Arterial Blood Ionized Calcium Coronavirus (PCR) SARS-CoV-2 IgG Ab 08/03/20 08/04/20 08/04/20 23:01 03:59 05:30 WBC MCV MCH MCHC RDW Lymph % (Auto) Lymph # (Auto) Seg Neutrophils % Lymphocytes % (Manual) Seg Neutrophils # Man Lymphocytes # (Manual) D-Dimer POC ABG pCO2 54.6 H POC ABG pO2 66.2 L ABG Hemoglobin 10.8 L ABG Oxyhemoglobin 91.5 L ABG Sodium ABG Potassium ABG Chloride 110.0 H ABG Glucose 201 H Sodium Chloride Carbon Dioxide BUN Glucose POC Glucose 222 H 137 H Calcium Magnesium Ferritin Alkaline Phosphatase Lactate Dehydrogenase Total Creatine Kinase CK-MB (CK-2) C-Reactive Protein Albumin Triglycerides Arterial Blood Glucose 201 H Arterial Blood Ionized Calcium Coronavirus (PCR) SARS-CoV-2 IgG Ab 08/04/20 06:57 WBC MCV MCH MCHC RDW Lymph % (Auto) Lymph # (Auto) Seg Neutrophils % Lymphocytes % (Manual) Seg Neutrophils # Man Lymphocytes # (Manual) D-Dimer POC ABG pCO2 POC ABG pO2 ABG Hemoglobin ABG Oxyhemoglobin ABG Sodium ABG Potassium ABG Chloride ABG Glucose Sodium 151 H Chloride 111.3 H Carbon Dioxide 36 H BUN 32 H Glucose 160 H POC Glucose Calcium 8.2 L Magnesium 2.60 H Ferritin Alkaline Phosphatase Lactate Dehydrogenase Total Creatine Kinase CK-MB (CK-2) C-Reactive Protein Albumin Triglycerides Arterial Blood Glucose Arterial Blood Ionized Calcium Coronavirus (PCR) SARS-CoV-2 IgG Ab
[2020-08-04] MEDS: traZODone 50 MG TAB PO SCH (21:34)
[2020-08-04] MEDS: ENOXAPARIN 40 MG/0.4 ML INJ SUB-Q SCH (21:34)
[2020-08-05] MEDS: LORazepam 2 MG/ML VIAL IV PRN ×2 (02:33→18:30)
[2020-08-05] MEDS: fentaNYL DRIP Premix 2,000 MCG/100 ML BAG IV SCH ×4 (02:33→18:29)
--- NOTE | 2020-08-05 06:03 | Progress Note ---
Assessment and Plan Critical care statement The high probability OF a clinically significant sudden or life-threatening deterioration of the cardiorespiratory system and endocrine system required my full and direct attention, intervention and postoperative management. The aggregate critical care time was 40 minutes. The time is in addition to time spent performing reported procedures but includes the followin: Data review and interpretation 2: Patient assessment and monitoring of vital signs 3: Documentation 4:: Medication orders and management Assessment and Plan Patient with acute hypoxemic respiratory failure on high flow oxygen COVID-19 pneumonia, persistent hypoxemia, remains on high flow oxygen 40 L/100%/O2 sats 91+ nonrebreather, critically ill with poor prognosis, patient and family aware --SARS Covid 2 IgG antibodies positive; no indication for convalescent plasma On 07/24/2020 I spoke with patient's spouse Ms. Cecilia Suarez and a family friend who is a physician patient's condition treatment plan tests and reports Consultants recommendations and prognosis, I answered all their questions we wi ll closely monitor the patient and adjust management as needed. I also discussed with patient's nurse as well as nursing supervisor properties Critical care time 35 minutes --Acute hypoxc respiratory failure; on high flow oxygen Current Visit: Yes Status: Acute Plan to address problem: 40 L /100% /O2 sats 95% 07/20/2020 35L/95% /O2 sat 94% 07/21/2020 40 L/100%/91 O2 sats 07/23/20 40 L/100%/97 O2 sats 07/24/2020 Mild improvement, titrate O2 sats to more than 90% Due to the underlying COVID-19 pneumonia. Treat the underlying cause Prone position as tolerated Home O2 evaluation Hypernatremia increase water intake Acute hypoxic respiratory failure -rapid response 07/24/2020 Patient has removed the oxygen, and went into severe hypoxemia Code met was called, respiratory be adjusted oxygen settings Patient feels better, updated --COVID-19 positive Continue contact and droplet isolation, IV dexamethasone for total 4/9 days IV remdesivir per ID 08/25 Patient is already on high flow oxygen Prone position as tolerated, inflammatory markers Anticoagulation per protocol, and supportive care Patient is critically ill, poor prognosis SARS to Covid IgG antibodies positive, no indication for convalescent --Elevated D-dimers; CTA chest negative for PE, mild pulmonary edema, I will add Lasix 40 mg IV 1 dose now, and daily thereafter lower extremity venous Doppler, negative for DVT -- Pneumonia Current Visit: Yes Status: Acute Plan to address problem: Continue empiric IV antibiotics. Procalcitonin is elevated In view of patient's pneumonia and severe hypoxia Elevated D-dimers will get CTA chest to rule out PE -- DVT prophylaxis Current Visit: Yes Status: Acute Plan to address problem: Patient placed on subcutaneous Lovenox. -- Full code status Current Visit: Yes Status: Acute Plan to address problem: Patient is a full code. Subjective Date of service: 08/04/20 Principal diagnosis: Acute respiratory failure with hypoxia, Covid pneumonia Interval history: History Interval history: I have seen and examined the patient at the bedside Isolation precautions PPE protocol strictly followed Patient remains critically ill Requiring high flow oxygen Shortness of breath Vital signs reviewed Patient continues to be on high levels of oxygen Closely monitor the patient and adjust management as needed Follow CTA chest, and inflammatory markers Consults recommendations noted and appreciated Plan of care reviewed with the patient and his nurse 07/20; patient is severely hypoxemic, on high flow oxygen 40 L/100%/O2 sats 95 Elevated D-dimers, patient is severely hypoxemic, will check CTA chest to rule out PE Also consider lower extremity venous Doppler to rule out DVT 07/21: Patient remains on high flow oxygen however mild improvement from 40 L to 35 l Tolerating prone position, continue steroids remdesivir CTA chest negative for PE, lower extremity venous Doppler negative for DVT Consults recommendations noted and appreciated Poor prognosis, patient is aware 07/22/2020; patient feels slightly better remains on high flow oxygen however lower than yesterday 35 L/95% /O2 sat 94% 07/21/2020 advised the patient to rest in prone position as tolerated Home oxygen evaluation 07/23/2020; remains on high flow oxygen, continue steroids remdesivir, prone position and comfort care Patient is critically ill with very poor prognosis and prolonged hypoxemia on high flow oxygen Plan of care reviewed with the patient and his nurse 07/24/2020; patient was severely hypoxemic rapid response called oxygen settings adjusted patient is currently better, requiring high flow oxygen right from the day he was admitted, poor prognosis, discussed with patient's 07/25/2020; patient remains on high flow oxygen in mild distress, overall prognosis poor I discussed with , and family friend physician Dr.Mundo extensively yesterday Poor prognosis continue current management 07/26/2020; patient remains on high flow oxygen 40 L/100%/95% O2 sat +100% nonrebreather Patient is critically ill, poor prognosis, ID pulmonary following 07/27/2020; patient remains on high flow oxygen 40 L/100%/[address] 100% nonrebreather Very poor prognosis, patient and family aware Pulmonary recommendations noted and appreciated 07/28/2020; patient remains critically ill, remains dependent on high flow oxygen 40 L +100% nonrebreather Very poor prognosis. 07/29/2020 Remains critically ill On high flow oxygen 07/30/2020 On high flow oxygen Is critically ill 07/31/2020 On high flow oxygen Critically ill 08/01/2020 on high flow oxygen Critically ill 08/02/2020 On Vent Weaning in progress 08/03/20 On Vent Weaning in progress 08/04/20 On vent Weaning in progrerss Objective - Constitutional Vitals: Vital Signs - 12hr 08/04/20 08/04/20 08/04/20 18:14 18:16 18:30 Temperature Pulse Rate 107 H 107 H 104 H Pulse Rate [ From Monitor] Respiratory 22 22 Rate Blood Pressure 140/80 140/80 138/79 O2 Sat by Pulse 92 96 94 Oximetry 08/04/20 08/04/20 08/04/20 18:46 19:00 19:16 Temperature Pulse Rate 106 H 107 H 109 H Pulse Rate [ From Monitor] Respiratory 28 H 25 H 25 H Rate Blood Pressure 138/79 126/84 126/84 O2 Sat by Pulse 97 93 97 Oximetry 08/04/20 08/04/20 08/04/20 19:30 19:31 19:40 Temperature 99 F Pulse Rate 104 H 104 H Pulse Rate [ From Monitor] Respiratory 27 H Rate Blood Pressure 125/80 125/80 O2 Sat by Pulse 94 97 Oximetry 08/04/20 08/04/20 08/04/20 19:46 20:00 20:16 Temperature Pulse Rate 103 H 103 H 101 H Pulse Rate [ 89 From Monitor] Respiratory 26 H 27 H 30 H Rate Blood Pressure 125/80 116/76 116/76 O2 Sat by Pulse 97 96 98 Oximetry 08/04/20 08/04/20 08/04/20 20:30 20:46 21:00 Temperature Pulse Rate 102 H 113 H 101 H Pulse Rate [ From Monitor] Respiratory 23 25 H 22 Rate Blood Pressure 132/74 132/74 120/78 O2 Sat by Pulse 96 98 95 Oximetry 08/04/20 08/04/20 08/04/20 21:16 21:23 21:30 Temperature Pulse Rate 121 H 103 H 101 H Pulse Rate [ From Monitor] Respiratory 22 30 H 23 Rate Blood Pressure 120/78 120/78 141/76 O2 Sat by Pulse 97 98 95 Oximetry 08/04/20 08/04/20 08/04/20 21:34 21:46 22:00 Temperature Pulse Rate 102 H 103 H 113 H Pulse Rate [ From Monitor] Respiratory 26 H 24 25 H Rate Blood Pressure 141/76 141/76 137/69 O2 Sat by Pulse 97 97 95 Oximetry 08/04/20 08/04/20 08/04/20 22:16 22:30 22:46 Temperature Pulse Rate 112 H 110 H 111 H Pulse Rate [ From Monitor] Respiratory 20 30 H 26 H Rate Blood Pressure 137/69 145/68 145/68 O2 Sat by Pulse 95 95 94 Oximetry 08/04/20 08/04/20 08/04/20 23:00 23:16 23:30 Temperature Pulse Rate 114 H 114 H 105 H Pulse Rate [ From Monitor] Respiratory 16 22 30 H Rate Blood Pressure 134/73 134/73 130/80 O2 Sat by Pulse 94 94 92 Oximetry 08/04/20 08/04/20 08/05/20 23:44 23:46 00:00 Temperature 99.4 F Pulse Rate 105 H 99 H Pulse Rate [ 115 H From Monitor] Respiratory 21 20 Rate Blood Pressure 130/80 129/60 O2 Sat by Pulse 95 96 Oximetry 08/05/20 08/05/20 08/05/20 00:16 00:30 00:46 Temperature Pulse Rate 120 H 104 H 103 H Pulse Rate [ From Monitor] Respiratory 30 H 28 H 21 Rate Blood Pressure 151/76 133/76 133/76 O2 Sat by Pulse 94 93 96 Oximetry 08/05/20 08/05/20 08/05/20 01:00 01:16 01:30 Temperature Pulse Rate 105 H 110 H 119 H Pulse Rate [ From Monitor] Respiratory 24 26 H 24 Rate Blood Pressure 136/79 136/79 126/69 O2 Sat by Pulse 93 95 89 Oximetry 08/05/20 08/05/2021 01:46 02:00 02:16 Temperature Pulse Rate 120 H 109 H 141 H Pulse Rate [ From Monitor] Respiratory 14 24 15 Rate Blood Pressure 126/69 142/80 142/80 O2 Sat by Pulse 94 93 93 Oximetry 08/05/20 08/05/20 08/05/20 02:30 02:46 03:00 Temperature Pulse Rate 118 H 114 H 115 H Pulse Rate [ From Monitor] Respiratory 30 H 30 H 21 Rate Blood Pressure 114/54 114/54 118/72 O2 Sat by Pulse 92 95 94 Oximetry 08/05/20 08/05/20 08/05/20 03:16 03:30 03:33 Temperature 100.2 F H Pulse Rate 118 H 116 H Pulse Rate [ From Monitor] Respiratory 30 H 30 H Rate Blood Pressure 114/54 122/68 O2 Sat by Pulse 95 93 Oximetry 08/05/20 08/05/20 08/05/20 03:46 04:00 04:16 Temperature Pulse Rate 113 H 115 H 111 H Pulse Rate [ From Monitor] Respiratory 24 20 30 H Rate Blood Pressure 118/72 121/67 121/67 O2 Sat by Pulse 96 93 95 Oximetry 08/05/20 08/05/20 08/05/20 04:30 04:46 05:00 Temperature Pulse Rate 110 H 127 H 116 H Pulse Rate [ From Monitor] Respiratory 30 H 30 H 30 H Rate Blood Pressure 120/67 121/67 121/64 O2 Sat by Pulse 93 96 94 Oximetry 08/05/20 08/05/20 08/05/20 05:16 05:30 05:46 Temperature Pulse Rate 113 H 113 H 115 H Pulse Rate [ From Monitor] Respiratory 20 20 18 Rate Blood Pressure 120/67 131/66 131/66 O2 Sat by Pulse 96 93 96 Oximetry General appearance: Present: severe distress, well-nourished - EENT Eyes: PERRL, EOM intact ENT: hearing intact, clear oral mucosa Ears: bilateral: normal - Neck Neck: supple, normal ROM - Respiratory Respiratory effort: normal Respiratory: bilateral: CTA - Breasts Breasts: normal - Cardiovascular Heart rate: 88 Rhythm: regular Heart Sounds: Present: S1 & S2. Absent: gallop, rub Extremities: pulses intact, No edema, normal color, Full ROM - Gastrointestinal General gastrointestinal: Present: soft, non-tender, non-distended, normal bowel sounds - Genitourinary Male genitourinary: normal - Integumentary Integumentary: clear, warm, dry - Musculoskeletal Musculoskeletal: 1, strength equal bilaterally - Neurologic Neurologic: CNII-XII intact, moves all extremities - Psychiatric Psychiatric: memory intact, appropriate mood/affect, intact judgment & insight - Labs CBC & Chem 7: 08/06/20 08:59 08/06/20 08:59 Labs: Abnormal lab results 08/04/20 08/04/20 08/04/20 Range/Units 06:57 11:50 17:29 POC ABG pCO2 (32.0-48.0) mmHg POC ABG pO2 (83-108) mmHg ABG Hemoglobin (12.0-17.5) ABG Sodium (136.0-145.0) mmol/L ABG Chloride (98-107) mmol/L ABG Glucose (65-95) mg/dL Sodium 151 H (137-145) mmol/L Chloride 111.3 H (98-107) mmol/L Carbon Dioxide 36 H (22-30) mmol/L BUN 32 H (9-20) mg/dL Glucose 160 H (75-100) mg/dL POC Glucose 158 H 180 H (70-105) mg/dL Calcium 8.2 L (8.4-10.2) mg/dL Magnesium 2.60 H (1.7-2.3) mg/dL Arterial Blood Glucose (65-95) mg/dL 08/04/20 08/05/20 08/05/20 Range/Units 23:01 04:49 05:11 POC ABG pCO2 56.7 H (32.0-48.0) mmHg POC ABG pO2 80.6 L (83-108) mmHg ABG Hemoglobin 10.9 L (12.0-17.5) ABG Sodium 145.9 H (136.0-145.0) mmol/L ABG Chloride 109.0 H (98-107) mmol/L ABG Glucose 160 H (65-95) mg/dL Sodium (137-145) mmol/L Chloride (98-107) mmol/L Carbon Dioxide (22-30) mmol/L BUN (9-20) mg/dL Glucose (75-100) mg/dL POC Glucose 160 H 134 H (70-105) mg/dL Calcium (8.4-10.2) mg/dL Magnesium (1.7-2.3) mg/dL Arterial Blood Glucose 160 H (65-95) mg/dL HEART Score - HEART Score Troponin: Troponin T 0.018 ng/mL (0.00-0.029) 07/30/20 10:33
--- NOTE | 2020-08-05 07:24 | Progress Note ---
Assessment and Plan 60 y/o male with chest discomfort, shortness of breath and abnormal CXR, COVID Positive 08/05/20: Did not increase PEEP yesterday. PaO2 improved on own. Will wean FiO2 down today for sats >88%. Hold on proning for now. Continue steroids. Needs better rate control. Most likely sinus tach from hypoxemia, but needs 12 lead if not done yet. Needs labs checked to assess electrolytes. Prognosis remains guarded to poor. Will attempt to reach today, if not today tomorrow. 08/04/20: Will increase PEEP to 16 today. If no improvement in the next 24 hours then will start proning patient tomorrow night. Continue steroids. Ove rall prognosis remains very guarded. 08/03/20: Chemistry not ordered, ordered today. Follow up blood cultures. Increased PEEP to 14 and RT will attempt to wean FiO2 back down to 50's. Will continue steroids at current dosing for now. He has already completed to original 10 days. Given some improvement, would like to continue. Overall prognosis remains very guarded. 08/02/20: Check blood and urine cultures along with UA. Will check repeat CXR. Repeat Chemistry tomorrow. Hold on abx therapy for right now. Prognosis remains guarded. Continue steroids. Wean FiO2 for sats >88% 08/01/20: Overall prognosis here is very very guarded to poor. Will consider proning patient later today if not able to wean FiO2 any further this afternoon. Per CM, wants to come see patient which is very reasonable. Will continue steroids despite completing 10 days of this. 07/29/20: Supportive measures. Proning and wean as tolerated. 07/28/20: No new recommendations as of right now. When beds become available will move patient down stairs for closer monitoring. 07/27/20: Difficult situation. Patient appears to be not responding to any therapy. Steroids finished yesterday. Given the degree of inflammation will restart steroids for at least another 72-96 hours. In no improvement will stop. Not much else to do medical therapy [place]. Continue to keep patient net negative. Still remains high risk for intubation and if intubated given his current response to steroids, very high mortality. 07/26/20: No new recs for today. Patient really needs to try to prone as much as possible during the day and sleep prone at night. He remains a high risk for cardiac arrest and intubation. 07/25/20: very high risk for cardiac arrest from hypoxemia, but no available beds in ICU. Given COVID status, ideally would not like to use bipap but may have to in the event of continued desats. While proning does better and does not need the mask along with HFNC. Encourage to prone as long as possible. 1. Continue steroids for 10 days. 2. Continue Remdesivir. Not a candidate for Convalescent Plasma 3. Please ask patient prone as tolerated during the day and sleep prone at night. Currently doing and tolerating 4. Agree with daily lasix but will need labs to monitor renal function and electrolytes. Needs labs for today. 5. Guarded prognosis to poor now with increasing oxygen requirement. May require intubation and high risk for cardiac arrest. CCT 31 Subjective Date of service: 08/05/20 Principal diagnosis: Acute respiratory failure with hypoxia, Covid pneumonia Interval history: Remains Tachycardic but PaO2 is better today. Still with low grade temps. So far cultures have been negative. Nursing asked yesterday about changing picc to a midline. Objective Vital Signs - 12hr 08/04/20 08/04/20 08/04/20 19:30 19:31 19:40 Temperature 99 F Pulse Rate 104 H 104 H Pulse Rate [ From Monitor] Respiratory 27 H Rate Blood Pressure 125/80 125/80 O2 Sat by Pulse 94 97 Oximetry 08/04/20 08/04/20 08/04/20 19:46 20:00 20:16 Temperature Pulse Rate 103 H 106 H 101 H Pulse Rate [ 89 From Monitor] Respiratory 26 H 27 H 30 H Rate Blood Pressure 125/80 116/76 116/76 O2 Sat by Pulse 97 96 98 Oximetry 08/04/20 08/04/20 08/04/20 20:30 20:46 21:00 Temperature Pulse Rate 102 H 113 H 101 H Pulse Rate [ From Monitor] Respiratory 23 25 H 22 Rate Blood Pressure 132/74 132/74 120/78 O2 Sat by Pulse 96 98 95 Oximetry 08/04/20 08/04/20 08/04/20 21:16 21:23 21:30 Temperature Pulse Rate 121 H 103 H 101 H Pulse Rate [ From Monitor] Respiratory 22 30 H 23 Rate Blood Pressure 120/78 120/78 141/76 O2 Sat by Pulse 97 98 95 Oximetry 08/04/20 08/04/20 08/04/20 21:34 21:46 22:00 Temperature Pulse Rate 102 H 103 H 113 H Pulse Rate [ From Monitor] Respiratory 26 H 24 25 H Rate Blood Pressure 141/76 141/76 137/69 O2 Sat by Pulse 97 97 95 Oximetry 08/04/20 08/04/20 08/04/20 22:16 22:30 22:46 Temperature Pulse Rate 112 H 110 H 111 H Pulse Rate [ From Monitor] Respiratory 20 30 H 26 H Rate Blood Pressure 137/69 145/68 145/68 O2 Sat by Pulse 95 95 94 Oximetry 08/04/20 08/04/20 08/04/20 23:00 23:16 23:30 Temperature Pulse Rate 114 H 114 H 105 H Pulse Rate [ From Monitor] Respiratory 16 22 30 H Rate Blood Pressure 134/73 134/73 130/80 O2 Sat by Pulse 94 94 92 Oximetry 08/04/20 08/04/20 08/05/20 23:44 23:46 00:00 Temperature 99.4 F Pulse Rate 105 H 104 H Pulse Rate [ 115 H From Monitor] Respiratory 21 20 Rate Blood Pressure 130/80 129/60 O2 Sat by Pulse 95 96 Oximetry 08/05/20 08/05/20 08/05/20 00:16 00:30 00:46 Temperature Pulse Rate 120 H 104 H 103 H Pulse Rate [ From Monitor] Respiratory 30 H 28 H 21 Rate Blood Pressure 151/76 133/76 133/76 O2 Sat by Pulse 94 93 96 Oximetry 08/05/20 08/05/20 08/05/20 01:00 01:16 01:30 Temperature Pulse Rate 105 H 110 H 119 H Pulse Rate [ From Monitor] Respiratory 24 26 H 24 Rate Blood Pressure 136/79 136/79 126/69 O2 Sat by Pulse 93 95 89 Oximetry 08/05/20 08/05/20 08/05/20 01:46 02:00 02:16 Temperature Pulse Rate 120 H 109 H 141 H Pulse Rate [ From Monitor] Respiratory 14 24 15 Rate Blood Pressure 126/69 142/80 142/80 O2 Sat by Pulse 94 93 93 Oximetry 08/05/20 08/05/20 08/05/20 02:30 02:46 03:00 Temperature Pulse Rate 118 H 114 H 115 H Pulse Rate [ From Monitor] Respiratory 30 H 30 H 21 Rate Blood Pressure 114/54 114/54 118/72 O2 Sat by Pulse 92 95 94 Oximetry 08/05/20 08/05/20 08/05/20 03:16 03:30 03:33 Temperature 100.2 F H Pulse Rate 118 H 116 H Pulse Rate [ From Monitor] Respiratory 30 H 30 H Rate Blood Pressure 114/54 122/68 O2 Sat by Pulse 95 93 Oximetry 08/05/20 08/05/20 08/05/20 03:46 04:00 04:16 Temperature Pulse Rate 113 H 115 H 111 H Pulse Rate [ 114 H From Monitor] Respiratory 24 20 30 H Rate Blood Pressure 118/72 121/67 121/67 O2 Sat by Pulse 96 93 95 Oximetry 08/05/20 08/05/20 08/05/20 04:30 04:46 05:00 Temperature Pulse Rate 110 H 127 H 116 H Pulse Rate [ From Monitor] Respiratory 30 H 30 H 30 H Rate Blood Pressure 120/67 121/67 121/64 O2 Sat by Pulse 93 96 94 Oximetry 08/05/20 08/05/20 08/05/20 05:16 05:30 05:46 Temperature Pulse Rate 113 H 113 H 115 H Pulse Rate [ From Monitor] Respiratory 20 20 18 Rate Blood Pressure 120/67 131/66 131/66 O2 Sat by Pulse 96 93 96 Oximetry 08/05/20 06:00 Temperature Pulse Rate 120 H Pulse Rate [ From Monitor] Respiratory 16 Rate Blood Pressure 135/62 O2 Sat by Pulse 94 Oximetry Constitutional: other (orally intubated on vent) Eyes: non-icteric ENT: oropharynx moist Neck: supple Ascultation: Bilateral: diminished breath sounds, rhonchi Cardiovascular: regular rate and rhythm, other (tachycardia) Gastrointestinal: normoactive bowel sounds, soft, non-tender, non-distended Integumentary: normal Extremities: no cyanosis Neurologic: normal mental status, non-focal exam CBC and BMP: 07/31/20 23:55 08/04/20 06:57 ABG, PT/INR, D-dimer: ABG ABG pH 7.367 (7.320-7.450) 08/05/20 04:49 POC ABG pCO2 56.7 mmHg (32.0-48.0) H 08/05/20 04:49 POC ABG pO2 80.6 mmHg (83-108) L 08/05/20 04:49 POC ABG HCO3 31.8 08/05/20 04:49 PT/INR, D-dimer PT 13.7 Sec. (12.2-14.9) 07/18/20 04:31 INR 1.06 (0.87-1.13) 07/18/20 04:31 D-Dimer > 69572 ng/mlDDU (0-234) H 07/26/20 10:07 Abnormal lab findings: Abnormal Labs 07/17/20 07/17/20 07/17/20 17:30 17:30 22:48 WBC MCV MCH MCHC 35 H RDW Lymph % (Auto) 10.5 L Lymph # (Auto) 0.7 L Seg Neutrophils % 85.3 H Lymphocytes % (Manual) Seg Neutrophils # Man Lymphocytes # (Manual) D-Dimer 314.21 H POC ABG pCO2 POC ABG pO2 ABG Hemoglobin ABG Oxyhemoglobin ABG Sodium ABG Potassium ABG Chloride ABG Glucose Sodium Chloride Carbon Dioxide BUN 1 L Glucose 154 H POC Glucose Calcium Magnesium Ferritin Alkaline Phosphatase Lactate Dehydrogenase Total Creatine Kinase CK-MB (CK-2) C-Reactive Protein Albumin Triglycerides Arterial Blood Glucose Arterial Blood Ionized Calcium Coronavirus (PCR) SARS-CoV-2 IgG Ab 07/17/20 07/17/20 07/18/20 22:48 22:48 04:31 WBC MCV MCH 33 H MCHC 35 H RDW 13.1 L Lymph % (Auto) Lymph # (Auto) Seg Neutrophils % Lymphocytes % (Manual) 5.0 L Seg Neutrophils # Man 8.1 H Lymphocytes # (Manual) 0.4 L D-Dimer POC ABG pCO2 POC ABG pO2 ABG Hemoglobin ABG Oxyhemoglobin ABG Sodium ABG Potassium ABG Chloride ABG Glucose Sodium Chloride Carbon Dioxide BUN Glucose 124 H POC Glucose Calcium Magnesium Ferritin 889.3 H Alkaline Phosphatase Lactate Dehydrogenase 832 H Total Creatine Kinase CK-MB (CK-2) C-Reactive Protein 17.70 H Albumin Triglycerides Arterial Blood Glucose Arterial Blood Ionized Calcium Coronavirus (PCR) SARS-CoV-2 IgG Ab 07/18/20 07/18/20 07/18/20 04:31 08:50 18:48 WBC MCV MCH MCHC RDW Lymph % (Auto) Lymph # (Auto) Seg Neutrophils % Lymphocytes % (Manual) Seg Neutrophils # Man Lymphocytes # (Manual) D-Dimer 275.27 H POC ABG pCO2 POC ABG pO2 ABG Hemoglobin ABG Oxyhemoglobin ABG Sodium ABG Potassium ABG Chloride ABG Glucose Sodium Chloride Carbon Dioxide 31 H D BUN 23 H Glucose 143 H POC Glucose Calcium Magnesium Ferritin Alkaline Phosphatase Lactate Dehydrogenase Total Creatine Kinase CK-MB (CK-2) C-Reactive Protein Albumin Triglycerides Arterial Blood Glucose Arterial Blood Ionized Calcium Coronavirus (PCR) Positive A SARS-CoV-2 IgG Ab 07/18/20 07/18/20 07/20/20 18:48 18:48 08:56 WBC MCV MCH MCHC RDW Lymph % (Auto) Lymph # (Auto) Seg Neutrophils % Lymphocytes % (Manual) Seg Neutrophils # Man Lymphocytes # (Manual) D-Dimer POC ABG pCO2 POC ABG pO2 ABG Hemoglobin ABG Oxyhemoglobin ABG Sodium ABG Potassium ABG Chloride ABG Glucose Sodium Chloride Carbon Dioxide BUN 22 H Glucose 219 H POC Glucose Calcium Magnesium Ferritin 1164.0 H Alkaline Phosphatase Lactate Dehydrogenase 560 H 739 H Total Creatine Kinase CK-MB (CK-2) C-Reactive Protein 18.00 H 17.50 H Albumin 3.0 L Triglycerides Arterial Blood Glucose Arterial Blood Ionized Calcium Coronavirus (PCR) SARS-CoV-2 IgG Ab 07/20/20 07/20/20 07/21/20 08:56 08:56 05:24 WBC MCV MCH MCHC RDW Lymph % (Auto) Lymph # (Auto) Seg Neutrophils % Lymphocytes % (Manual) Seg Neutrophils # Man Lymphocytes # (Manual) D-Dimer 9523.70 H POC ABG pCO2 POC ABG pO2 ABG Hemoglobin ABG Oxyhemoglobin ABG Sodium ABG Potassium ABG Chloride ABG Glucose Sodium Chloride Carbon Dioxide BUN Glucose POC Glucose Calcium Magnesium Ferritin 1581.0 H Alkaline Phosphatase Lactate Dehydrogenase Total Creatine Kinase CK-MB (CK-2) C-Reactive Protein Albumin Triglycerides Arterial Blood Glucose Arterial Blood Ionized Calcium Coronavirus (PCR) SARS-CoV-2 IgG Ab Reactive A 07/22/20 07/24/20 07/26/20 04:31 13:26 10:07 WBC MCV MCH MCHC RDW Lymph % (Auto) Lymph # (Auto) Seg Neutrophils % Lymphocytes % (Manual) Seg Neutrophils # Man Lymphocytes # (Manual) D-Dimer > 14283 H POC ABG pCO2 POC ABG pO2 ABG Hemoglobin ABG Oxyhemoglobin ABG Sodium ABG Potassium ABG Chloride ABG Glucose Sodium 146 H Chloride Carbon Dioxide 32 H BUN 28 H 26 H Glucose 144 H 116 H POC Glucose Calcium 8.3 L Magnesium Ferritin Alkaline Phosphatase Lactate Dehydrogenase Total Creatine Kinase CK-MB (CK-2) C-Reactive Protein Albumin 3.3 L Triglycerides Arterial Blood Glucose Arterial Blood Ionized Calcium Coronavirus (PCR) SARS-CoV-2 IgG Ab 07/26/20 07/26/20 07/27/20 10:07 10:07 19:45 WBC MCV MCH MCHC RDW Lymph % (Auto) Lymph # (Auto) Seg Neutrophils % Lymphocytes % (Manual) Seg Neutrophils # Man Lymphocytes # (Manual) D-Dimer POC ABG pCO2 POC ABG pO2 ABG Hemoglobin ABG Oxyhemoglobin ABG Sodium ABG Potassium ABG Chloride ABG Glucose Sodium Chloride 97.4 L Carbon Dioxide 33 H BUN 27 H Glucose 175 H POC Glucose Calcium Magnesium Ferritin 1079.0 H Alkaline Phosphatase Lactate Dehydrogenase 708 H Total Creatine Kinase CK-MB (CK-2) C-Reactive Protein 6.10 H Albumin Triglycerides Arterial Blood Glucose Arterial Blood Ionized Calcium Coronavirus (PCR) SARS-CoV-2 IgG Ab 07/29/20 07/30/20 07/30/20 02:09 10:33 11:54 WBC MCV MCH MCHC RDW Lymph % (Auto) Lymph # (Auto) Seg Neutrophils % Lymphocytes % (Manual) Seg Neutrophils # Man Lymphocytes # (Manual) D-Dimer POC ABG pCO2 POC ABG pO2 ABG Hemoglobin ABG Oxyhemoglobin ABG Sodium ABG Potassium ABG Chloride ABG Glucose Sodium Chloride Carbon Dioxide BUN Glucose POC Glucose 183 H Calcium Magnesium 3.00 H Ferritin Alkaline Phosphatase Lactate Dehydrogenase Total Creatine Kinase 174 H CK-MB (CK-2) 4.5 H C-Reactive Protein Albumin Triglycerides Arterial Blood Glucose Arterial Blood Ionized Calcium Coronavirus (PCR) SARS-CoV-2 IgG Ab 07/30/20 07/30/20 07/31/20 17:30 23:08 11:04 WBC MCV MCH MCHC RDW Lymph % (Auto) Lymph # (Auto) Seg Neutrophils % Lymphocytes % (Manual) Seg Neutrophils # Man Lymphocytes # (Manual) D-Dimer POC ABG pCO2 POC ABG pO2 ABG Hemoglobin ABG Oxyhemoglobin ABG Sodium ABG Potassium ABG Chloride ABG Glucose Sodium 151 H D Chloride 109.2 H Carbon Dioxide 32 H BUN 48 H Glucose 165 H POC Glucose 199 H 194 H Calcium Magnesium Ferritin Alkaline Phosphatase 168 H Lactate Dehydrogenase Total Creatine Kinase CK-MB (CK-2) C-Reactive Protein Albumin 3.1 L Triglycerides Arterial Blood Glucose Arterial Blood Ionized Calcium Coronavirus (PCR) SARS-CoV-2 IgG Ab 07/31/20 07/31/20 07/31/20 11:18 11:23 17:47 WBC MCV MCH MCHC RDW Lymph % (Auto) Lymph # (Auto) Seg Neutrophils % Lymphocytes % (Manual) Seg Neutrophils # Man Lymphocytes # (Manual) D-Dimer POC ABG pCO2 56.6 H POC ABG pO2 73.1 L ABG Hemoglobin ABG Oxyhemoglobin 92.1 L ABG Sodium ABG Potassium ABG Chloride 108.0 H ABG Glucose 169 H Sodium Chloride Carbon Dioxide BUN Glucose POC Glucose 156 H 169 H Calcium Magnesium Ferritin Alkaline Phosphatase Lactate Dehydrogenase Total Creatine Kinase CK-MB (CK-2) C-Reactive Protein Albumin Triglycerides Arterial Blood Glucose 169 H Arterial Blood Ionized Calcium Coronavirus (PCR) SARS-CoV-2 IgG Ab 07/31/20 07/31/20 07/31/20 20:58 23:18 23:55 WBC 19.8 H MCV 95 H MCH MCHC RDW 13.0 L Lymph % (Auto) Lymph # (Auto) Seg Neutrophils % Lymphocytes % (Manual) Seg Neutrophils # Man Lymphocytes # (Manual) D-Dimer POC ABG pCO2 POC ABG pO2 ABG Hemoglobin ABG Oxyhemoglobin ABG Sodium ABG Potassium ABG Chloride ABG Glucose Sodium Chloride Carbon Dioxide BUN Glucose POC Glucose 293 H 211 H Calcium Magnesium Ferritin Alkaline Phosphatase Lactate Dehydrogenase Total Creatine Kinase CK-MB (CK-2) C-Reactive Protein Albumin Triglycerides Arterial Blood Glucose Arterial Blood Ionized Calcium Coronavirus (PCR) SARS-CoV-2 IgG Ab 08/01/20 08/01/20 08/01/20 03:47 08:30 12:27 WBC MCV MCH MCHC RDW Lymph % (Auto) Lymph # (Auto) Seg Neutrophils % Lymphocytes % (Manual) Seg Neutrophils # Man Lymphocytes # (Manual) D-Dimer POC ABG pCO2 49.8 H POC ABG pO2 123.4 H ABG Hemoglobin ABG Oxyhemoglobin ABG Sodium ABG Potassium 4.6 H ABG Chloride 111.0 H ABG Glucose 130 H Sodium 154 H Chloride 115.1 H Carbon Dioxide 32 H BUN 49 H Glucose 492 H POC Glucose 161 H Calcium 7.2 L D Magnesium Ferritin Alkaline Phosphatase Lactate Dehydrogenase Total Creatine Kinase CK-MB (CK-2) C-Reactive Protein Albumin Triglycerides Arterial Blood Glucose 130 H Arterial Blood Ionized Calcium 4.5 L Coronavirus (PCR) SARS-CoV-2 IgG Ab 08/01/20 08/01/20 08/02/20 16:55 23:06 05:00 WBC MCV MCH MCHC RDW Lymph % (Auto) Lymph # (Auto) Seg Neutrophils % Lymphocytes % (Manual) Seg Neutrophils # Man Lymphocytes # (Manual) D-Dimer POC ABG pCO2 52.5 H POC ABG pO2 69.8 L ABG Hemoglobin ABG Oxyhemoglobin ABG Sodium 147.2 H ABG Potassium ABG Chloride 110.0 H ABG Glucose 177 H Sodium Chloride Carbon Dioxide BUN Glucose POC Glucose 195 H 162 H Calcium Magnesium Ferritin Alkaline Phosphatase Lactate Dehydrogenase Total Creatine Kinase CK-MB (CK-2) C-Reactive Protein Albumin Triglycerides Arterial Blood Glucose 177 H Arterial Blood Ionized Calcium Coronavirus (PCR) SARS-CoV-2 IgG Ab 08/02/20 08/02/20 08/02/20 05:01 12:05 17:13 WBC MCV MCH MCHC RDW Lymph % (Auto) Lymph # (Auto) Seg Neutrophils % Lymphocytes % (Manual) Seg Neutrophils # Man Lymphocytes # (Manual) D-Dimer POC ABG pCO2 POC ABG pO2 ABG Hemoglobin ABG Oxyhemoglobin ABG Sodium ABG Potassium ABG Chloride ABG Glucose Sodium Chloride Carbon Dioxide BUN Glucose POC Glucose 146 H 166 H 209 H Calcium Magnesium Ferritin Alkaline Phosphatase Lactate Dehydrogenase Total Creatine Kinase CK-MB (CK-2) C-Reactive Protein Albumin Triglycerides Arterial Blood Glucose Arterial Blood Ionized Calcium Coronavirus (PCR) SARS-CoV-2 IgG Ab 08/02/20 08/03/20 08/03/20 23:26 04:06 04:34 WBC MCV MCH MCHC RDW Lymph % (Auto) Lymph # (Auto) Seg Neutrophils % Lymphocytes % (Manual) Seg Neutrophils # Man Lymphocytes # (Manual) D-Dimer POC ABG pCO2 55.6 H POC ABG pO2 66.1 L ABG Hemoglobin 11.9 L ABG Oxyhemoglobin 91.1 L ABG Sodium 145.7 H ABG Potassium 4.8 H ABG Chloride 111.0 H ABG Glucose 195 H Sodium Chloride Carbon Dioxide BUN Glucose POC Glucose 157 H Calcium Magnesium Ferritin Alkaline Phosphatase Lactate Dehydrogenase Total Creatine Kinase CK-MB (CK-2) C-Reactive Protein Albumin Triglycerides 207 H Arterial Blood Glucose 195 H Arterial Blood Ionized Calcium Coronavirus (PCR) SARS-CoV-2 IgG Ab 08/03/20 08/03/20 08/03/20 05:00 11:55 17:15 WBC MCV MCH MCHC RDW Lymph % (Auto) Lymph # (Auto) Seg Neutrophils % Lymphocytes % (Manual) Seg Neutrophils # Man Lymphocytes # (Manual) D-Dimer POC ABG pCO2 POC ABG pO2 ABG Hemoglobin ABG Oxyhemoglobin ABG Sodium ABG Potassium ABG Chloride ABG Glucose Sodium Chloride Carbon Dioxide BUN Glucose POC Glucose 179 H 173 H 217 H Calcium Magnesium Ferritin Alkaline Phosphatase Lactate Dehydrogenase Total Creatine Kinase CK-MB (CK-2) C-Reactive Protein Albumin Triglycerides Arterial Blood Glucose Arterial Blood Ionized Calcium Coronavirus (PCR) SARS-CoV-2 IgG Ab 08/03/20 08/04/20 08/04/20 23:01 03:59 05:30 WBC MCV MCH MCHC RDW Lymph % (Auto) Lymph # (Auto) Seg Neutrophils % Lymphocytes % (Manual) Seg Neutrophils # Man Lymphocytes # (Manual) D-Dimer POC ABG pCO2 54.6 H POC ABG pO2 66.2 L ABG Hemoglobin 10.8 L ABG Oxyhemoglobin 91.5 L ABG Sodium ABG Potassium ABG Chloride 110.0 H ABG Glucose 201 H Sodium Chloride Carbon Dioxide BUN Glucose POC Glucose 222 H 137 H Calcium Magnesium Ferritin Alkaline Phosphatase Lactate Dehydrogenase Total Creatine Kinase CK-MB (CK-2) C-Reactive Protein Albumin Triglycerides Arterial Blood Glucose 201 H Arterial Blood Ionized Calcium Coronavirus (PCR) SARS-CoV-2 IgG Ab 08/04/20 08/04/20 08/04/20 06:57 11:50 17:29 WBC MCV MCH MCHC RDW Lymph % (Auto) Lymph # (Auto) Seg Neutrophils % Lymphocytes % (Manual) Seg Neutrophils # Man Lymphocytes # (Manual) D-Dimer POC ABG pCO2 POC ABG pO2 ABG Hemoglobin ABG Oxyhemoglobin ABG Sodium ABG Potassium ABG Chloride ABG Glucose Sodium 151 H Chloride 111.3 H Carbon Dioxide 36 H BUN 32 H Glucose 160 H POC Glucose 158 H 180 H Calcium 8.2 L Magnesium 2.60 H Ferritin Alkaline Phosphatase Lactate Dehydrogenase Total Creatine Kinase CK-MB (CK-2) C-Reactive Protein Albumin Triglycerides Arterial Blood Glucose Arterial Blood Ionized Calcium Coronavirus (PCR) SARS-CoV-2 IgG Ab 08/04/20 08/05/20 08/05/20 23:01 04:49 05:11 WBC MCV MCH MCHC RDW Lymph % (Auto) Lymph # (Auto) Seg Neutrophils % Lymphocytes % (Manual) Seg Neutrophils # Man Lymphocytes # (Manual) D-Dimer POC ABG pCO2 56.7 H POC ABG pO2 80.6 L ABG Hemoglobin 10.9 L ABG Oxyhemoglobin ABG Sodium 145.9 H ABG Potassium ABG Chloride 109.0 H ABG Glucose 160 H Sodium Chloride Carbon Dioxide BUN Glucose POC Glucose 160 H 134 H Calcium Magnesium Ferritin Alkaline Phosphatase Lactate Dehydrogenase Total Creatine Kinase CK-MB (CK-2) C-Reactive Protein Albumin Triglycerides Arterial Blood Glucose 160 H Arterial Blood Ionized Calcium Coronavirus (PCR) SARS-CoV-2 IgG Ab
[2020-08-05] MEDS: ACETAMINOPHEN 325 MG TAB PO PRN (11:09)
[2020-08-05] MEDS: dexAMETHasone 4 MG/ML VIAL IV SCH (11:09)
[2020-08-05] MEDS: FAMOTIDINE 20 MG TAB PO SCH ×2 (11:09→20:59)
[2020-08-05] MEDS: SENNOSIDES/DOCUSATE SODIUM 8.6/50 MG TAB PO SCH ×2 (11:09→20:59)
[2020-08-05] MEDS: ENOXAPARIN 40 MG/0.4 ML INJ SUB-Q SCH (20:59)
[2020-08-05] MEDS: traZODone 50 MG TAB PO SCH (20:59)
--- NOTE | 2020-08-06 03:17 | Progress Note ---
Assessment and Plan Critical care statement The high probability OF a clinically significant sudden or life-threatening deterioration of the cardiorespiratory system and endocrine system required my full and direct attention, intervention and postoperative management. The aggregate critical care time was 32 minutes. The time is in addition to time spent performing reported procedures but includes the followin: Data review and interpretation 2: Patient assessment and monitoring of vital signs 3: Documentation 4:: Medication orders and management Assessment and Plan Patient with acute hypoxemic respiratory failure on high flow oxygen COVID-19 pneumonia, persistent hypoxemia, remains on high flow oxygen 40 L/100%/O2 sats 91+ nonrebreather, critically ill with poor prognosis, patient and family aware --Acute hypoxc respiratory failure on Vent Current Visit: Yes Status: Acute Plan to address problem: Weaning in progress Hypernatremia increase water intake --COVID-19 positive Continue contact and droplet isolation, --Elevated D-dimers; CTA chest negative for PE, mild pulmonary edema, -- Pneumonia Current Visit: Yes Status: Acute Plan to address problem: Off antibiotics -- DVT prophylaxis Current Visit: Yes Status: Acute Plan to address problem: Patient placed on subcutaneous Lovenox. -- Full code status Current Visit: Yes Status: Acute Plan to address problem: Patient is a full code. Subjective Date of service: 08/05/20 Principal diagnosis: Acute respiratory failure with hypoxia, Covid pneumonia Interval history: History Interval history: I have seen and examined the patient at the bedside Isolation precautions PPE protocol strictly followed Patient remains critically ill Requiring high flow oxygen Shortness of breath Vital signs reviewed Patient continues to be on high levels of oxygen Closely monitor the patient and adjust management as needed Follow CTA chest, and inflammatory markers Consults recommendations noted and appreciated Plan of care reviewed with the patient and his nurse 07/20; patient is severely hypoxemic, on high flow oxygen 40 L/100%/O2 sats 95 Elevated D-dimers, patient is severely hypoxemic, will check CTA chest to rule out PE Also consider lower extremity venous Doppler to rule out DVT 07/21: Patient remains on high flow oxygen however mild improvement from 40 L to 35 l Tolerating prone position, continue steroids remdesivir CTA chest negative for PE, lower extremity venous Doppler negative for DVT Consults recommendations noted and appreciated Poor prognosis, patient is aware 07/22/2020; patient feels slightly better remains on high flow oxygen however lower than yesterday 35 L/95% /O2 sat 94% 07/21/2020 advised the patient to rest in prone position as tolerated Home oxygen evaluation 07/23/2020; remains on high flow oxygen, continue steroids remdesivir, prone position and comfort care Patient is critically ill with very poor prognosis and prolonged hypoxemia on high flow oxygen Plan of care reviewed with the patient and his nurse 07/24/2020; patient was severely hypoxemic rapid response called oxygen settings adjusted patient is currently better, requiring high flow oxygen right from the day he was admitted, poor prognosis, discussed with patient's 07/25/2020; patient remains on high flow oxygen in mild distress, overall prognosis poor I discussed with , and family friend physician extensively yesterday Poor prognosis continue current management 07/26/2020; patient remains on high flow oxygen 40 L/100%/95% O2 sat +100% nonrebreather Patient is critically ill, poor prognosis, ID pulmonary following 07/27/2020; patient remains on high flow oxygen 40 L/100%/[address] 100% nonrebreather Very poor prognosis, patient and family aware Pulmonary recommendations noted and appreciated 07/28/2020; patient remains critically ill, remains dependent on high flow oxygen 40 L +100% nonrebreather Very poor prognosis. 07/29/2020 Remains critically ill On high flow oxygen 07/30/2020 On high flow oxygen Is critically ill 07/31/2020 On high flow oxygen Critically ill 08/01/2020 on high flow oxygen Critically ill 08/02/2020 On Vent Weaning in progress 08/03/20 On Vent Weaning in progress 08/04/20 On vent Weaning in progress 08/05/20 Did not increase PEEP yesterday. PaO2 improved on own. Will wean FiO2 down today for sats >88%. Hold on proning for now. Continue steroids. Needs better rate control. Most likely sinus tach from hypoxemia, 1 Objective - Constitutional Vitals: Vital Signs - 12hr 08/05/20 08/05/20 08/05/20 15:22 15:30 15:46 Temperature Pulse Rate 121 H 107 H 114 H Pulse Rate [ From Monitor] Respiratory 18 13 Rate Blood Pressure 141/74 158/95 158/95 O2 Sat by Pulse 85 89 94 Oximetry 08/05/20 08/05/20 08/05/20 16:00 16:16 16:30 Temperature 98.1 F Pulse Rate 122 H 109 H 111 H Pulse Rate [ From Monitor] Respiratory 25 H 14 15 Rate Blood Pressure 150/85 150/85 135/70 O2 Sat by Pulse 93 91 91 Oximetry 08/05/20 08/05/20 08/05/20 16:46 17:00 17:16 Temperature Pulse Rate 117 H 115 H 116 H Pulse Rate [ From Monitor] Respiratory 15 28 H 19 Rate Blood Pressure 150/85 139/50 139/50 O2 Sat by Pulse 94 93 95 Oximetry 08/05/20 08/05/20 08/05/20 17:30 17:46 18:00 Temperature Pulse Rate 123 H 124 H 154 H Pulse Rate [ From Monitor] Respiratory 22 24 17 Rate Blood Pressure 140/57 140/57 128/58 O2 Sat by Pulse 93 94 93 Oximetry 08/05/20 08/05/20 08/05/20 18:16 18:30 18:46 Temperature Pulse Rate 115 H 114 H 133 H Pulse Rate [ From Monitor] Respiratory 25 H 21 30 H Rate Blood Pressure 128/58 117/57 117/57 O2 Sat by Pulse 94 93 94 Oximetry 08/05/20 08/05/20 08/05/20 19:00 19:01 19:16 Temperature Pulse Rate 110 H 99 H 102 H Pulse Rate [ From Monitor] Respiratory 30 H 28 H Rate Blood Pressure 126/55 126/55 126/55 O2 Sat by Pulse 94 95 92 Oximetry 08/05/20 08/05/20 08/05/20 19:30 19:46 20:00 Temperature 100.4 F H Pulse Rate 98 H 96 H 100 H Pulse Rate [ 97 H From Monitor] Respiratory 18 19 24 Rate Blood Pressure 117/56 117/56 120/62 O2 Sat by Pulse 93 94 93 Oximetry 08/05/20 08/05/20 08/05/20 20:16 20:30 20:31 Temperature 98.5 F Pulse Rate 99 H 107 H Pulse Rate [ From Monitor] Respiratory 16 14 Rate Blood Pressure 120/62 120/53 O2 Sat by Pulse 94 93 Oximetry 08/05/20 08/05/20 08/05/20 20:46 21:00 21:16 Temperature Pulse Rate 104 H 107 H 98 H Pulse Rate [ From Monitor] Respiratory 26 H 15 16 Rate Blood Pressure 120/53 108/63 108/63 O2 Sat by Pulse 93 91 89 Oximetry 08/05/20 08/05/20 08/05/20 21:30 21:46 22:00 Temperature Pulse Rate 95 H 99 H 97 H Pulse Rate [ From Monitor] Respiratory 13 17 15 Rate Blood Pressure 108/63 94/55 144/73 O2 Sat by Pulse 91 91 91 Oximetry 08/05/20 08/05/20 08/05/20 22:16 22:30 22:46 Temperature Pulse Rate 99 H 102 H 102 H Pulse Rate [ From Monitor] Respiratory 16 18 16 Rate Blood Pressure 144/73 133/62 133/62 O2 Sat by Pulse 93 94 Oximetry 08/05/20 08/05/20 08/05/20 23:00 23:16 23:30 Temperature Pulse Rate 117 H 129 H 110 H Pulse Rate [ From Monitor] Respiratory 16 14 17 Rate Blood Pressure 128/71 128/71 147/69 O2 Sat by Pulse 94 94 93 Oximetry 08/05/20 08/05/20 08/05/20 23:33 23:46 23:50 Temperature 97.4 F L Pulse Rate 134 H 115 H Pulse Rate [ From Monitor] Respiratory 21 Rate Blood Pressure 147/69 147/69 O2 Sat by Pulse 93 93 Oximetry 08/06/20 08/06/20 08/06/20 00:00 00:04 00:16 Temperature Pulse Rate 97 H 123 H 102 H Pulse Rate [ 112 H From Monitor] Respiratory 20 19 20 Rate Blood Pressure 141/65 141/65 141/65 O2 Sat by Pulse 93 92 92 Oximetry 08/06/20 08/06/20 08/06/20 00:30 00:46 01:00 Temperature Pulse Rate 117 H 107 H 102 H Pulse Rate [ From Monitor] Respiratory 28 H 25 H 18 Rate Blood Pressure 141/65 152/77 146/74 O2 Sat by Pulse 93 93 92 Oximetry 08/06/20 08/06/20 08/06/20 01:16 01:30 01:46 Temperature Pulse Rate 106 H 120 H 99 H Pulse Rate [ From Monitor] Respiratory 20 18 18 Rate Blood Pressure 146/74 129/60 146/74 O2 Sat by Pulse 93 93 92 Oximetry 08/06/20 02:00 Temperature Pulse Rate 126 H Pulse Rate [ From Monitor] Respiratory 17 Rate Blood Pressure 133/65 O2 Sat by Pulse 93 Oximetry General appearance: Present: no acute distress, well-nourished - EENT Eyes: PERRL, EOM intact ENT: hearing intact, clear oral mucosa Ears: bilateral: normal - Neck Neck: supple, normal ROM - Respiratory Respiratory effort: normal Respiratory: bilateral: CTA - Breasts Breasts: normal - Cardiovascular Rhythm: regular Heart Sounds: Present: S1 & S2. Absent: gallop, rub Extremities: pulses intact, No edema, normal color, Full ROM - Gastrointestinal General gastrointestinal: Present: soft, non-tender, non-distended, normal bowel sounds - Genitourinary Male genitourinary: normal - Integumentary Integumentary: clear, warm, dry - Musculoskeletal Musculoskeletal: 1, strength equal bilaterally - Neurologic Neurologic: moves all extremities - Psychiatric Psychiatric: memory intact, appropriate mood/affect, intact judgment & insight - Labs CBC & Chem 7: 08/06/20 08:59 08/06/20 08:59 Labs: Abnormal lab results 08/05/20 08/05/20 08/05/20 Range/Units 04:49 05:11 11:40 POC ABG pCO2 56.7 H (32.0-48.0) mmHg POC ABG pO2 80.6 L (83-108) mmHg ABG Hemoglobin 10.9 L (12.0-17.5) ABG Sodium 145.9 H (136.0-145.0) mmol/L ABG Chloride 109.0 H (98-107) mmol/L ABG Glucose 160 H (65-95) mg/dL POC Glucose 134 H 137 H (70-105) mg/dL Arterial Blood Glucose 160 H (65-95) mg/dL 08/05/20 08/05/20 Range/Units 16:54 23:29 POC ABG pCO2 (32.0-48.0) mmHg POC ABG pO2 (83-108) mmHg ABG Hemoglobin (12.0-17.5) ABG Sodium (136.0-145.0) mmol/L ABG Chloride (98-107) mmol/L ABG Glucose (65-95) mg/dL POC Glucose 243 H 154 H (70-105) mg/dL Arterial Blood Glucose (65-95) mg/dL HEART Score - HEART Score Troponin: Troponin T 0.018 ng/mL (0.00-0.029) 07/30/20 10:33
[2020-08-06] MEDS: fentaNYL DRIP Premix 2,000 MCG/100 ML BAG IV SCH ×2 (04:21→15:48)
--- NOTE | 2020-08-06 09:03 | Progress Note ---
Assessment and Plan 60 y/o male with chest discomfort, shortness of breath and abnormal CXR, COVID Positive 08/06/20: Increase PEEP today to 16. Repeat gas tomorrow morning. Wean FiO2 today for sats >88%. Spoke with RT and PaO2 of 55 and greater are ok. will prone tonight for 12 hours at least. Remains in sinus tach. No labs drawn this am will order for stat this morning including BMP and Mag and Phos, CBC. Spoke with this am to update her. She is upset and asks to do everything for him that we can which I told her we would. I was also very honest about the severity of the disease which made her even more sad. 08/05/20: Did not increase PEEP yesterday. PaO2 improved on own. Will wean FiO2 down today for sats >88%. Hold on proning for now. Continue steroids. Needs better rate control. Most likely sinus tach from hypoxemia, but needs 12 lead if not done yet. Needs labs checked to assess electrolytes. Prognosis remains guarded to poor. Will attempt to reach today, if not today tomorrow. 08/04/20: Will increase PEEP to 16 today. If no improvement in the next 24 hours then will start proning patient tomorrow night. Continue steroids. Overall prognosis remains very guarded. 08/03/20: Chemistry not ordered, ordered today. Follow up blood cultures. Increased PEEP to 14 and RT will attempt to wean FiO2 back down to 50's. Will continue steroids at current dosing for now. He has already completed to origi nal 10 days. Given some improvement, would like to continue. Overall prognosis remains very guarded. 08/02/20: Check blood and urine cultures along with UA. Will check repeat CXR. Repeat Chemistry tomorrow. Hold on abx therapy for right now. Prognosis remains guarded. Continue steroids. Wean FiO2 for sats >88% 08/01/20: Overall prognosis here is very very guarded to poor. Will consider proning patient later today if not able to wean FiO2 any further this afternoon. Per CM, wants to come see patient which is very reasonable. Will continue steroids despite completing 10 days of this. 07/29/20: Supportive measures. Proning and wean as tolerated. 07/28/20: No new recommendations as of right now. When beds become available will move patient down stairs for closer monitoring. 07/27/20: Difficult situation. Patient appears to be not responding to any therapy. Steroids finished yesterday. Given the degree of inflammation will restart steroids for at least another 72-96 hours. In no improvement will stop. Not much else to do medical therapy [place]. Continue to keep patient net negative. Still remains high risk for intubation and if intubated given his current response to steroids, very high mortality. 07/26/20: No new recs for today. Patient really needs to try to prone as much as possible during the day and sleep prone at night. He remains a high risk for cardiac arrest and intubation. 07/25/20: very high risk for cardiac arrest from hypoxemia, but no available beds in ICU. Given COVID status, ideally would not like to use bipap but may have to in the event of continued desats. While proning does better and does not need the mask along with HFNC. Encourage to prone as long as possible. 1. Continue steroids for 10 days. 2. Continue Remdesivir. Not a candidate for Convalescent Plasma 3. Please ask patient prone as tolerated during the day and sleep prone at night. Currently doing and tolerating 4. Agree with daily lasix but will need labs to monitor renal function and electrolytes. Needs labs for today. 5. Guarded prognosis to poor now with increasing oxygen requirement. May require intubation and high risk for cardiac arrest. CCT 31 Subjective Date of service: 08/06/20 Principal diagnosis: Acute respiratory failure with hypoxia, Covid pneumonia Interval history: PaO2 was 53 on 50% this am. Now back up to 65% Assuming there were some desaturations. Spoke with over the phone to update her. Had a temp yesterday afternoon of 101. All cultures to date have been negative. Objective Vital Signs - 12hr 08/05/20 08/05/20 08/05/20 21:00 21:16 21:30 Temperature Pulse Rate 107 H 98 H 95 H Pulse Rate [ From Monitor] Respiratory 15 16 13 Rate Blood Pressure 108/63 108/63 108/63 O2 Sat by Pulse 91 89 91 Oximetry 08/05/20 08/05/20 08/05/20 21:46 22:00 22:16 Temperature Pulse Rate 99 H 97 H 99 H Pulse Rate [ From Monitor] Respiratory 17 15 16 Rate Blood Pressure 94/55 144/73 144/73 O2 Sat by Pulse 91 91 Oximetry 08/05/20 08/05/20 08/05/20 22:30 22:46 23:00 Temperature Pulse Rate 102 H 102 H 117 H Pulse Rate [ From Monitor] Respiratory 18 16 16 Rate Blood Pressure 133/62 133/62 128/71 O2 Sat by Pulse 93 94 94 Oximetry 08/05/20 08/05/20 08/05/20 23:16 23:30 23:33 Temperature Pulse Rate 129 H 110 H 134 H Pulse Rate [ From Monitor] Respiratory 14 17 Rate Blood Pressure 128/71 147/69 147/69 O2 Sat by Pulse 94 93 93 Oximetry 08/05/20 08/05/20 08/06/20 23:46 23:50 00:00 Temperature 97.4 F L Pulse Rate 115 H 97 H Pulse Rate [ 112 H From Monitor] Respiratory 21 20 Rate Blood Pressure 147/69 141/65 O2 Sat by Pulse 93 93 Oximetry 08/06/20 08/06/20 08/06/20 00:04 00:16 00:30 Temperature Pulse Rate 123 H 102 H 117 H Pulse Rate [ From Monitor] Respiratory 19 20 28 H Rate Blood Pressure 141/65 141/65 141/65 O2 Sat by Pulse 92 92 93 Oximetry 08/06/20 08/06/20 08/06/20 00:46 01:00 01:16 Temperature Pulse Rate 107 H 102 H 106 H Pulse Rate [ From Monitor] Respiratory 25 H 18 20 Rate Blood Pressure 152/77 146/74 146/74 O2 Sat by Pulse 93 92 93 Oximetry 08/06/20 08/06/20 08/06/20 01:30 01:46 02:00 Temperature Pulse Rate 120 H 99 H 126 H Pulse Rate [ From Monitor] Respiratory 18 18 17 Rate Blood Pressure 129/60 146/74 133/65 O2 Sat by Pulse 93 92 93 Oximetry 08/06/20 08/06/20 08/06/20 02:16 02:30 02:46 Temperature Pulse Rate 97 H 103 H 105 H Pulse Rate [ From Monitor] Respiratory 17 16 16 Rate Blood Pressure 133/65 119/74 119/74 O2 Sat by Pulse 93 93 93 Oximetry 08/06/20 08/06/20 08/06/20 03:00 03:16 03:23 Temperature 100.1 F H Pulse Rate 103 H 110 H Pulse Rate [ From Monitor] Respiratory 16 15 Rate Blood Pressure 129/64 129/64 O2 Sat by Pulse 92 92 Oximetry 08/06/20 08/06/20 08/06/20 03:30 03:46 04:00 Temperature 99.9 F H Pulse Rate 104 H 106 H 104 H Pulse Rate [ 103 H From Monitor] Respiratory 16 15 16 Rate Blood Pressure 122/59 122/59 126/59 O2 Sat by Pulse 92 92 91 Oximetry 08/06/20 08/06/20 08/06/20 04:16 04:30 04:46 Temperature Pulse Rate 108 H 119 H 131 H Pulse Rate [ From Monitor] Respiratory 29 H 16 21 Rate Blood Pressure 126/59 119/62 119/62 O2 Sat by Pulse 89 90 89 Oximetry 08/06/20 08/06/20 08/06/20 04:49 05:00 05:16 Temperature Pulse Rate 110 H 102 H 115 H Pulse Rate [ From Monitor] Respiratory 27 H 31 H Rate Blood Pressure 119/62 119/62 139/64 O2 Sat by Pulse 90 89 87 Oximetry 08/06/20 08/06/20 08/06/20 05:30 05:54 06:00 Temperature Pulse Rate 136 H 128 H 122 H Pulse Rate [ From Monitor] Respiratory 30 H 15 16 Rate Blood Pressure 123/66 131/65 O2 Sat by Pulse 97 99 99 Oximetry 08/06/20 07:58 Temperature Pulse Rate 129 H Pulse Rate [ From Monitor] Respiratory Rate Blood Pressure 152/79 O2 Sat by Pulse 94 Oximetry Constitutional: other (orally intubated on vent) Eyes: non-icteric ENT: oropharynx moist Neck: supple Ascultation: Bilateral: diminished breath sounds, rhonchi Cardiovascular: regular rate and rhythm, other (tachycardia) Gastrointestinal: normoactive bowel sounds, soft, non-tender, non-distended Integumentary: normal Extremities: no cyanosis Neurologic: normal mental status, non-focal exam CBC and BMP: 07/31/20 23:55 08/04/20 06:57 ABG, PT/INR, D-dimer: ABG ABG pH 7.402 (7.320-7.450) 08/06/20 06:00 POC ABG pCO2 58.9 mmHg (32.0-48.0) H 08/06/20 06:00 POC ABG pO2 53.0 mmHg (83-108) L 08/06/20 06:00 POC ABG HCO3 35.8 08/06/20 06:00 PT/INR, D-dimer PT 13.7 Sec. (12.2-14.9) 07/18/20 04:31 INR 1.06 (0.87-1.13) 07/18/20 04:31 D-Dimer > 12740 ng/mlDDU (0-234) H 07/26/20 10:07 Abnormal lab findings: Abnormal Labs 07/17/20 07/17/20 07/17/20 17:30 17:30 22:48 WBC MCV MCH MCHC 35 H RDW Lymph % (Auto) 10.5 L Lymph # (Auto) 0.7 L Seg Neutrophils % 85.3 H Lymphocytes % (Manual) Seg Neutrophils # Man Lymphocytes # (Manual) D-Dimer 314.21 H POC ABG pCO2 POC ABG pO2 ABG Hemoglobin ABG Oxyhemoglobin ABG Sodium ABG Potassium ABG Chloride ABG Glucose Sodium Chloride Carbon Dioxide BUN 1 L Glucose 154 H POC Glucose Calcium Magnesium Ferritin Alkaline Phosphatase Lactate Dehydrogenase Total Creatine Kinase CK-MB (CK-2) C-Reactive Protein Albumin Triglycerides Arterial Blood Glucose Arterial Blood Ionized Calcium Coronavirus (PCR) SARS-CoV-2 IgG Ab 07/17/20 07/17/20 07/18/20 22:48 22:48 04:31 WBC MCV MCH 33 H MCHC 35 H RDW 13.1 L Lymph % (Auto) Lymph # (Auto) Seg Neutrophils % Lymphocytes % (Manual) 5.0 L Seg Neutrophils # Man 8.1 H Lymphocytes # (Manual) 0.4 L D-Dimer POC ABG pCO2 POC ABG pO2 ABG Hemoglobin ABG Oxyhemoglobin ABG Sodium ABG Potassium ABG Chloride ABG Glucose Sodium Chloride Carbon Dioxide BUN Glucose 124 H POC Glucose Calcium Magnesium Ferritin 889.3 H Alkaline Phosphatase Lactate Dehydrogenase 832 H Total Creatine Kinase CK-MB (CK-2) C-Reactive Protein 17.70 H Albumin Triglycerides Arterial Blood Glucose Arterial Blood Ionized Calcium Coronavirus (PCR) SARS-CoV-2 IgG Ab 07/18/20 07/18/20 07/18/20 04:31 08:50 18:48 WBC MCV MCH MCHC RDW Lymph % (Auto) Lymph # (Auto) Seg Neutrophils % Lymphocytes % (Manual) Seg Neutrophils # Man Lymphocytes # (Manual) D-Dimer 275.27 H POC ABG pCO2 POC ABG pO2 ABG Hemoglobin ABG Oxyhemoglobin ABG Sodium ABG Potassium ABG Chloride ABG Glucose Sodium Chloride Carbon Dioxide 31 H D BUN 23 H Glucose 143 H POC Glucose Calcium Magnesium Ferritin Alkaline Phosphatase Lactate Dehydrogenase Total Creatine Kinase CK-MB (CK-2) C-Reactive Protein Albumin Triglycerides Arterial Blood Glucose Arterial Blood Ionized Calcium Coronavirus (PCR) Positive A SARS-CoV-2 IgG Ab 07/18/20 07/18/20 07/20/20 18:48 18:48 08:56 WBC MCV MCH MCHC RDW Lymph % (Auto) Lymph # (Auto) Seg Neutrophils % Lymphocytes % (Manual) Seg Neutrophils # Man Lymphocytes # (Manual) D-Dimer POC ABG pCO2 POC ABG pO2 ABG Hemoglobin ABG Oxyhemoglobin ABG Sodium ABG Potassium ABG Chloride ABG Glucose Sodium Chloride Carbon Dioxide BUN 22 H Glucose 219 H POC Glucose Calcium Magnesium Ferritin 1164.0 H Alkaline Phosphatase Lactate Dehydrogenase 560 H 739 H Total Creatine Kinase CK-MB (CK-2) C-Reactive Protein 18.00 H 17.50 H Albumin 3.0 L Triglycerides Arterial Blood Glucose Arterial Blood Ionized Calcium Coronavirus (PCR) SARS-CoV-2 IgG Ab 07/20/20 07/20/20 07/21/20 08:56 08:56 05:24 WBC MCV MCH MCHC RDW Lymph % (Auto) Lymph # (Auto) Seg Neutrophils % Lymphocytes % (Manual) Seg Neutrophils # Man Lymphocytes # (Manual) D-Dimer 9523.70 H POC ABG pCO2 POC ABG pO2 ABG Hemoglobin ABG Oxyhemoglobin ABG Sodium ABG Potassium ABG Chloride ABG Glucose Sodium Chloride Carbon Dioxide BUN Glucose POC Glucose Calcium Magnesium Ferritin 1581.0 H Alkaline Phosphatase Lactate Dehydrogenase Total Creatine Kinase CK-MB (CK-2) C-Reactive Protein Albumin Triglycerides Arterial Blood Glucose Arterial Blood Ionized Calcium Coronavirus (PCR) SARS-CoV-2 IgG Ab Reactive A 07/22/20 07/24/20 07/26/20 04:31 13:26 10:07 WBC MCV MCH MCHC RDW Lymph % (Auto) Lymph # (Auto) Seg Neutrophils % Lymphocytes % (Manual) Seg Neutrophils # Man Lymphocytes # (Manual) D-Dimer > 40831 H POC ABG pCO2 POC ABG pO2 ABG Hemoglobin ABG Oxyhemoglobin ABG Sodium ABG Potassium ABG Chloride ABG Glucose Sodium 146 H Chloride Carbon Dioxide 32 H BUN 28 H 26 H Glucose 144 H 116 H POC Glucose Calcium 8.3 L Magnesium Ferritin Alkaline Phosphatase Lactate Dehydrogenase Total Creatine Kinase CK-MB (CK-2) C-Reactive Protein Albumin 3.3 L Triglycerides Arterial Blood Glucose Arterial Blood Ionized Calcium Coronavirus (PCR) SARS-CoV-2 IgG Ab 07/26/20 07/26/20 07/27/20 10:07 10:07 19:45 WBC MCV MCH MCHC RDW Lymph % (Auto) Lymph # (Auto) Seg Neutrophils % Lymphocytes % (Manual) Seg Neutrophils # Man Lymphocytes # (Manual) D-Dimer POC ABG pCO2 POC ABG pO2 ABG Hemoglobin ABG Oxyhemoglobin ABG Sodium ABG Potassium ABG Chloride ABG Glucose Sodium Chloride 97.4 L Carbon Dioxide 33 H BUN 27 H Glucose 175 H POC Glucose Calcium Magnesium Ferritin 1079.0 H Alkaline Phosphatase Lactate Dehydrogenase 708 H Total Creatine Kinase CK-MB (CK-2) C-Reactive Protein 6.10 H Albumin Triglycerides Arterial Blood Glucose Arterial Blood Ionized Calcium Coronavirus (PCR) SARS-CoV-2 IgG Ab 07/29/20 07/30/20 07/30/20 02:09 10:33 11:54 WBC MCV MCH MCHC RDW Lymph % (Auto) Lymph # (Auto) Seg Neutrophils % Lymphocytes % (Manual) Seg Neutrophils # Man Lymphocytes # (Manual) D-Dimer POC ABG pCO2 POC ABG pO2 ABG Hemoglobin ABG Oxyhemoglobin ABG Sodium ABG Potassium ABG Chloride ABG Glucose Sodium Chloride Carbon Dioxide BUN Glucose POC Glucose 183 H Calcium Magnesium 3.00 H Ferritin Alkaline Phosphatase Lactate Dehydrogenase Total Creatine Kinase 174 H CK-MB (CK-2) 4.5 H C-Reactive Protein Albumin Triglycerides Arterial Blood Glucose Arterial Blood Ionized Calcium Coronavirus (PCR) SARS-CoV-2 IgG Ab 07/30/20 07/30/20 07/31/20 17:30 23:08 11:04 WBC MCV MCH MCHC RDW Lymph % (Auto) Lymph # (Auto) Seg Neutrophils % Lymphocytes % (Manual) Seg Neutrophils # Man Lymphocytes # (Manual) D-Dimer POC ABG pCO2 POC ABG pO2 ABG Hemoglobin ABG Oxyhemoglobin ABG Sodium ABG Potassium ABG Chloride ABG Glucose Sodium 151 H D Chloride 109.2 H Carbon Dioxide 32 H BUN 48 H Glucose 165 H POC Glucose 199 H 194 H Calcium Magnesium Ferritin Alkaline Phosphatase 168 H Lactate Dehydrogenase Total Creatine Kinase CK-MB (CK-2) C-Reactive Protein Albumin 3.1 L Triglycerides Arterial Blood Glucose Arterial Blood Ionized Calcium Coronavirus (PCR) SARS-CoV-2 IgG Ab 07/31/20 07/31/20 07/31/20 11:18 11:23 17:47 WBC MCV MCH MCHC RDW Lymph % (Auto) Lymph # (Auto) Seg Neutrophils % Lymphocytes % (Manual) Seg Neutrophils # Man Lymphocytes # (Manual) D-Dimer POC ABG pCO2 56.6 H POC ABG pO2 73.1 L ABG Hemoglobin ABG Oxyhemoglobin 92.1 L ABG Sodium ABG Potassium ABG Chloride 108.0 H ABG Glucose 169 H Sodium Chloride Carbon Dioxide BUN Glucose POC Glucose 156 H 169 H Calcium Magnesium Ferritin Alkaline Phosphatase Lactate Dehydrogenase Total Creatine Kinase CK-MB (CK-2) C-Reactive Protein Albumin Triglycerides Arterial Blood Glucose 169 H Arterial Blood Ionized Calcium Coronavirus (PCR) SARS-CoV-2 IgG Ab 07/31/20 07/31/20 07/31/20 20:58 23:18 23:55 WBC 19.8 H MCV 95 H MCH MCHC RDW 13.0 L Lymph % (Auto) Lymph # (Auto) Seg Neutrophils % Lymphocytes % (Manual) Seg Neutrophils # Man Lymphocytes # (Manual) D-Dimer POC ABG pCO2 POC ABG pO2 ABG Hemoglobin ABG Oxyhemoglobin ABG Sodium ABG Potassium ABG Chloride ABG Glucose Sodium Chloride Carbon Dioxide BUN Glucose POC Glucose 293 H 211 H Calcium Magnesium Ferritin Alkaline Phosphatase Lactate Dehydrogenase Total Creatine Kinase CK-MB (CK-2) C-Reactive Protein Albumin Triglycerides Arterial Blood Glucose Arterial Blood Ionized Calcium Coronavirus (PCR) SARS-CoV-2 IgG Ab 08/01/20 08/01/20 08/01/20 03:47 08:30 12:27 WBC MCV MCH MCHC RDW Lymph % (Auto) Lymph # (Auto) Seg Neutrophils % Lymphocytes % (Manual) Seg Neutrophils # Man Lymphocytes # (Manual) D-Dimer POC ABG pCO2 49.8 H POC ABG pO2 123.4 H ABG Hemoglobin ABG Oxyhemoglobin ABG Sodium ABG Potassium 4.6 H ABG Chloride 111.0 H ABG Glucose 130 H Sodium 154 H Chloride 115.1 H Carbon Dioxide 32 H BUN 49 H Glucose 492 H POC Glucose 161 H Calcium 7.2 L D Magnesium Ferritin Alkaline Phosphatase Lactate Dehydrogenase Total Creatine Kinase CK-MB (CK-2) C-Reactive Protein Albumin Triglycerides Arterial Blood Glucose 130 H Arterial Blood Ionized Calcium 4.5 L Coronavirus (PCR) SARS-CoV-2 IgG Ab 08/01/20 08/01/20 08/02/20 16:55 23:06 05:00 WBC MCV MCH MCHC RDW Lymph % (Auto) Lymph # (Auto) Seg Neutrophils % Lymphocytes % (Manual) Seg Neutrophils # Man Lymphocytes # (Manual) D-Dimer POC ABG pCO2 52.5 H POC ABG pO2 69.8 L ABG Hemoglobin ABG Oxyhemoglobin ABG Sodium 147.2 H ABG Potassium ABG Chloride 110.0 H ABG Glucose 177 H Sodium Chloride Carbon Dioxide BUN Glucose POC Glucose 195 H 162 H Calcium Magnesium Ferritin Alkaline Phosphatase Lactate Dehydrogenase Total Creatine Kinase CK-MB (CK-2) C-Reactive Protein Albumin Triglycerides Arterial Blood Glucose 177 H Arterial Blood Ionized Calcium Coronavirus (PCR) SARS-CoV-2 IgG Ab 08/02/20 08/02/20 08/02/20 05:01 12:05 17:13 WBC MCV MCH MCHC RDW Lymph % (Auto) Lymph # (Auto) Seg Neutrophils % Lymphocytes % (Manual) Seg Neutrophils # Man Lymphocytes # (Manual) D-Dimer POC ABG pCO2 POC ABG pO2 ABG Hemoglobin ABG Oxyhemoglobin ABG Sodium ABG Potassium ABG Chloride ABG Glucose Sodium Chloride Carbon Dioxide BUN Glucose POC Glucose 146 H 166 H 209 H Calcium Magnesium Ferritin Alkaline Phosphatase Lactate Dehydrogenase Total Creatine Kinase CK-MB (CK-2) C-Reactive Protein Albumin Triglycerides Arterial Blood Glucose Arterial Blood Ionized Calcium Coronavirus (PCR) SARS-CoV-2 IgG Ab 08/02/20 08/03/20 08/03/20 23:26 04:06 04:34 WBC MCV MCH MCHC RDW Lymph % (Auto) Lymph # (Auto) Seg Neutrophils % Lymphocytes % (Manual) Seg Neutrophils # Man Lymphocytes # (Manual) D-Dimer POC ABG pCO2 55.6 H POC ABG pO2 66.1 L ABG Hemoglobin 11.9 L ABG Oxyhemoglobin 91.1 L ABG Sodium 145.7 H ABG Potassium 4.8 H ABG Chloride 111.0 H ABG Glucose 195 H Sodium Chloride Carbon Dioxide BUN Glucose POC Glucose 157 H Calcium Magnesium Ferritin Alkaline Phosphatase Lactate Dehydrogenase Total Creatine Kinase CK-MB (CK-2) C-Reactive Protein Albumin Triglycerides 207 H Arterial Blood Glucose 195 H Arterial Blood Ionized Calcium Coronavirus (PCR) SARS-CoV-2 IgG Ab 08/03/20 08/03/20 08/03/20 05:00 11:55 17:15 WBC MCV MCH MCHC RDW Lymph % (Auto) Lymph # (Auto) Seg Neutrophils % Lymphocytes % (Manual) Seg Neutrophils # Man Lymphocytes # (Manual) D-Dimer POC ABG pCO2 POC ABG pO2 ABG Hemoglobin ABG Oxyhemoglobin ABG Sodium ABG Potassium ABG Chloride ABG Glucose Sodium Chloride Carbon Dioxide BUN Glucose POC Glucose 179 H 173 H 217 H Calcium Magnesium Ferritin Alkaline Phosphatase Lactate Dehydrogenase Total Creatine Kinase CK-MB (CK-2) C-Reactive Protein Albumin Triglycerides Arterial Blood Glucose Arterial Blood Ionized Calcium Coronavirus (PCR) SARS-CoV-2 IgG Ab 08/03/20 08/04/20 08/04/20 23:01 03:59 05:30 WBC MCV MCH MCHC RDW Lymph % (Auto) Lymph # (Auto) Seg Neutrophils % Lymphocytes % (Manual) Seg Neutrophils # Man Lymphocytes # (Manual) D-Dimer POC ABG pCO2 54.6 H POC ABG pO2 66.2 L ABG Hemoglobin 10.8 L ABG Oxyhemoglobin 91.5 L ABG Sodium ABG Potassium ABG Chloride 110.0 H ABG Glucose 201 H Sodium Chloride Carbon Dioxide BUN Glucose POC Glucose 222 H 137 H Calcium Magnesium Ferritin Alkaline Phosphatase Lactate Dehydrogenase Total Creatine Kinase CK-MB (CK-2) C-Reactive Protein Albumin Triglycerides Arterial Blood Glucose 201 H Arterial Blood Ionized Calcium Coronavirus (PCR) SARS-CoV-2 IgG Ab 08/04/20 08/04/20 08/04/20 06:57 11:50 17:29 WBC MCV MCH MCHC RDW Lymph % (Auto) Lymph # (Auto) Seg Neutrophils % Lymphocytes % (Manual) Seg Neutrophils # Man Lymphocytes # (Manual) D-Dimer POC ABG pCO2 POC ABG pO2 ABG Hemoglobin ABG Oxyhemoglobin ABG Sodium ABG Potassium ABG Chloride ABG Glucose Sodium 151 H Chloride 111.3 H Carbon Dioxide 36 H BUN 32 H Glucose 160 H POC Glucose 158 H 180 H Calcium 8.2 L Magnesium 2.60 H Ferritin Alkaline Phosphatase Lactate Dehydrogenase Total Creatine Kinase CK-MB (CK-2) C-Reactive Protein Albumin Triglycerides Arterial Blood Glucose Arterial Blood Ionized Calcium Coronavirus (PCR) SARS-CoV-2 IgG Ab 08/04/20 08/05/20 08/05/20 23:01 04:49 05:11 WBC MCV MCH MCHC RDW Lymph % (Auto) Lymph # (Auto) Seg Neutrophils % Lymphocytes % (Manual) Seg Neutrophils # Man Lymphocytes # (Manual) D-Dimer POC ABG pCO2 56.7 H POC ABG pO2 80.6 L ABG Hemoglobin 10.9 L ABG Oxyhemoglobin ABG Sodium 145.9 H ABG Potassium ABG Chloride 109.0 H ABG Glucose 160 H Sodium Chloride Carbon Dioxide BUN Glucose POC Glucose 160 H 134 H Calcium Magnesium Ferritin Alkaline Phosphatase Lactate Dehydrogenase Total Creatine Kinase CK-MB (CK-2) C-Reactive Protein Albumin Triglycerides Arterial Blood Glucose 160 H Arterial Blood Ionized Calcium Coronavirus (PCR) SARS-CoV-2 IgG Ab 08/05/20 08/05/20 08/05/20 11:40 16:54 23:29 WBC MCV MCH MCHC RDW Lymph % (Auto) Lymph # (Auto) Seg Neutrophils % Lymphocytes % (Manual) Seg Neutrophils # Man Lymphocytes # (Manual) D-Dimer POC ABG pCO2 POC ABG pO2 ABG Hemoglobin ABG Oxyhemoglobin ABG Sodium ABG Potassium ABG Chloride ABG Glucose Sodium Chloride Carbon Dioxide BUN Glucose POC Glucose 137 H 243 H 154 H Calcium Magnesium Ferritin Alkaline Phosphatase Lactate Dehydrogenase Total Creatine Kinase CK-MB (CK-2) C-Reactive Protein Albumin Triglycerides Arterial Blood Glucose Arterial Blood Ionized Calcium Coronavirus (PCR) SARS-CoV-2 IgG Ab 08/06/20 08/06/20 05:24 06:00 WBC MCV MCH MCHC RDW Lymph % (Auto) Lymph # (Auto) Seg Neutrophils % Lymphocytes % (Manual) Seg Neutrophils # Man Lymphocytes # (Manual) D-Dimer POC ABG pCO2 58.9 H POC ABG pO2 53.0 L ABG Hemoglobin ABG Oxyhemoglobin 85.7 L ABG Sodium 148.4 H ABG Potassium 4.7 H ABG Chloride 109.0 H ABG Glucose 125 H Sodium Chloride Carbon Dioxide BUN Glucose POC Glucose 122 H Calcium Magnesium Ferritin Alkaline Phosphatase Lactate Dehydrogenase Total Creatine Kinase CK-MB (CK-2) C-Reactive Protein Albumin Triglycerides Arterial Blood Glucose 125 H Arterial Blood Ionized Calcium Coronavirus (PCR) SARS-CoV-2 IgG Ab
[2020-08-06 09:21] LABS: Hematocrit 35.9 % (35.5-45.6); Hemoglobin 11.5 gm/dl (11.8-15.2); Mean Corpuscular HGB Conc 32 % (32-34); Mean Corpuscular Volume 98 fl (84-94); Platelet Count 107 K/mm3 (140-440); Red Blood Count 3.68 M/mm3 (3.65-5.03); Red Cell Distribution Width 13.7 % (13.2-15.2)
[2020-08-06] MEDS: FAMOTIDINE 20 MG TAB PO SCH ×2 (09:35→23:02)
[2020-08-06] MEDS: dexAMETHasone 4 MG/ML VIAL IV SCH (09:35)
[2020-08-06] MEDS: SENNOSIDES/DOCUSATE SODIUM 8.6/50 MG TAB PO SCH ×2 (09:35→23:01)
[2020-08-06 09:44] LABS: Blood Urea Nitrogen 29 mg/dL (9-20); Calcium 8.4 mg/dL (8.4-10.2); Hemolysis Index 3
[2020-08-06 09:57] LABS: BUN/Creatinine Ratio 41
--- NOTE | 2020-08-06 11:30 | Progress Note ---
Assessment and Plan - Patient Problems (1) Acute respiratory failure with hypoxia Current Visit: Yes Status: Acute (2) COVID-19 Current Visit: Yes Status: Acute Plan to address problem: Patient is currently intubated and on ventilatory support. Wean vent as tolerated, daily ABG, daily spontaneous breathing trial, sedation holiday daily, critical care team consulted. The high probability of a clinically significant, sudden or life threatening deterioration of the [cardiac, pulmonary, neuro] system(s) required my full and direct attention, intervention and personal management. The aggregate critical care time was [65] minutes. This time is in addition to time spent performing reported procedures but includes the following: [x] Data Review and interpretation [x] Patient assessment and monitoring of vital signs [x] Documentation [x] Medication orders and management (3) Pneumonia Current Visit: Yes Status: Acute Plan to address problem: Pneumonia protocol: Full course IV antibiotic therapy, supplemental oxygen, supportive care. (4) DVT prophylaxis Current Visit: Yes Status: Acute Plan to address problem: SCD to bilateral lower extremities while in bed, prophylactic anticoagulation (5) Advance care planning Current Visit: Yes Status: Acute Plan to address problem: Disease education conducted, patient is full code, patient has poor prognosis. Prognosis discussed. +30 minutes. History Interval history: 60 YO Male HD #21 with acute hypoxemic respiratory failure, bilateral pneumonia secondary to coronavirus infection, cough who is currently intubated and on ventilatory support. Patient has poor prognosis. Patient currently unable to be weaned from ventilatory support. Patient has poor prognosis. No acute decompensation overnight. Hospitalist Physical - Constitutional Vitals: Temp Pulse Resp BP Pulse Ox 99.9 F H 129 H 16 142/77 95 08/06/20 04:00 08/06/20 07:58 08/06/20 06:00 08/06/20 10:10 08/06/20 10:10 General appearance: Present: no acute distress, well-nourished - EENT Eyes: Present: miosis ENT: hearing decreased - Neck Neck: Present: supple - Respiratory Respiratory effort: labored Respiratory: bilateral: diminished, rhonchi - Cardiovascular Rhythm: regular Heart Sounds: Present: S1 & S2 - Extremities Extremities: no ischemia Extremity abnormal: edema Peripheral Pulses: within normal limits - Abdominal General gastrointestinal: soft, non-tender, non-distended - Integumentary Integumentary: Present: dry - Psychiatric Psychiatric: no appropriate mood/affect, no intact judgment & insight, no memory intact - Neurologic Neurologic: CNII-XII intact, no gait normal HEART Score - HEART Score Troponin: Troponin T 0.018 ng/mL (0.00-0.029) 07/30/20 10:33 Results - Labs CBC & Chem 7: 08/06/20 08:59 08/06/20 08:59 Labs: Laboratory Last Values WBC 14.1 K/mm3 (4.5-11.0) H 08/06/20 08:59 RBC 3.68 M/mm3 (3.65-5.03) 08/06/20 08:59 Hgb 11.5 gm/dl (11.8-15.2) L 08/06/20 08:59 Hct 35.9 % (35.5-45.6) 08/06/20 08:59 MCV 98 fl (84-94) H 08/06/20 08:59 MCH 31 pg (28-32) 08/06/20 08:59 MCHC 32 % (32-34) 08/06/20 08:59 RDW 13.7 % (13.2-15.2) 08/06/20 08:59 Plt Count 107 K/mm3 (140-440) L 08/06/20 08:59 Lymph % (Auto) 10.5 % (13.4-35.0) L 07/17/20 17:30 [place] % (Auto) 4.0 % (0.0-7.3) 07/17/20 17:30 Eos % (Auto) 0.0 % (0.0-4.3) 07/17/20 17:30 Baso % (Auto) 0.2 % (0.0-1.8) 07/17/20 17:30 Lymph # (Auto) 0.7 K/mm3 (1.2-5.4) L 07/17/20 17:30 [place] # (Auto) 0.3 K/mm3 (0.0-0.8) 07/17/20 17:30 Eos # (Auto) 0.0 K/mm3 (0.0-0.4) 07/17/20 17:30 Baso # (Auto) 0.0 K/mm3 (0.0-0.1) 07/17/20 17:30 Add Manual Diff Complete 07/18/20 04:31 Total Counted 100 07/18/20 04:31 Seg Neutrophils % Shell Grader 07/18/20 04:31 Lymphocytes % (Manual) 5.0 % (13.4-35.0) L 07/18/20 04:31 Monocytes % (Manual) 3.0 % (0.0-7.3) 07/18/20 04:31 Nucleated RBC % Not Reportable 07/18/20 04:31 Seg Neutrophils # 5.4 K/mm3 (1.8-7.7) 07/17/20 17:30 Seg Neutrophils # Man 8.1 K/mm3 (1.8-7.7) H 07/18/20 04:31 Band Neutrophils # 0.0 K/mm3 07/18/20 04:31 Lymphocytes # (Manual) 0.4 K/mm3 (1.2-5.4) L 07/18/20 04:31 Abs React Lymphs (Man) 0.0 K/mm3 07/18/20 04:31 Monocytes # (Manual) 0.3 K/mm3 (0.0-0.8) 07/18/20 04:31 Eosinophils # (Manual) 0.0 K/mm3 (0.0-0.4) 07/18/20 04:31 Basophils # (Manual) 0.0 K/mm3 (0.0-0.1) 07/18/20 04:31 Metamyelocytes # 0.0 K/mm3 07/18/20 04:31 Myelocytes # 0.0 K/mm3 07/18/20 04:31 Promyelocytes # 0.0 K/mm3 07/18/20 04:31 Blast Cells # 0.0 K/mm3 07/18/20 04:31 WBC Morphology Not Reportable 07/18/20 04:31 Hypersegmented Neuts Not Reportable 07/18/20 04:31 Hyposegmented Neuts Not Reportable 07/18/20 04:31 Hypogranular Neuts Not Reportable 07/18/20 04:31 Smudge Cells Not Reportable 07/18/20 04:31 Toxic Granulation Not Reportable 07/18/20 04:31 Toxic Vacuolation Not Reportable 07/18/20 04:31 Dohle Bodies Not Reportable 07/18/20 04:31 Pelger-Huet Anomaly Not Reportable 07/18/20 04:31 Cheri Rods Not Reportable 07/18/20 04:31 Platelet Estimate Consistent w auto 07/18/20 04:31 Clumped Platelets Not Reportable 07/18/20 04:31 Plt Clumps, EDTA Not Reportable 07/18/20 04:31 Large Platelets Not Reportable 07/18/20 04:31 Giant Platelets Not Reportable 07/18/20 04:31 Platelet Satelliting Not Reportable 07/18/20 04:31 Plt Morphology Comment Not Reportable 07/18/20 04:31 RBC Morphology Not Reportable 07/18/20 04:31 Dimorphic RBCs Not Reportable 07/18/20 04:31 Polychromasia Not Reportable 07/18/20 04:31 Hypochromasia Not Reportable 07/18/20 04:31 Poikilocytosis Not Reportable 07/18/20 04:31 Anisocytosis 1+ 07/18/20 04:31 Microcytosis Not Reportable 07/18/20 04:31 Macrocytosis Not Reportable 07/18/20 04:31 Spherocytes Not Reportable 07/18/20 04:31 Pappenheimer Bodies Not Reportable 07/18/20 04:31 Sickle Cells Not Reportable 07/18/20 04:31 Target Cells Not Reportable 07/18/20 04:31 Tear Drop Cells Not Reportable 07/18/20 04:31 Ovalocytes Not Reportable 07/18/20 04:31 Helmet Cells Not Reportable 07/18/20 04:31 [place] Bodies Not Reportable 07/18/20 04:31 [place] Rings Not Reportable 07/18/20 04:31 [place] Cells Not Reportable 07/18/20 04:31 Bite Cells Not Reportable 07/18/20 04:31 Crenated Cell Not Reportable 07/18/20 04:31 Elliptocytes Not Reportable 07/18/20 04:31 Acanthocytes (Spur) Not Reportable 07/18/20 04:31 Rouleaux Not Reportable 07/18/20 04:31 Hemoglobin C Crystals Not Reportable 07/18/20 04:31 Schistocytes Not Reportable 07/18/20 04:31 Malaria parasites Not Reportable 07/18/20 04:31 Wilfredo Bodies Not Reportable 07/18/20 04:31 Hem Pathologist Commnt No 07/18/20 04:31 PT 13.7 Sec. (12.2-14.9) 07/18/20 04:31 INR 1.06 (0.87-1.13) 07/18/20 04:31 D-Dimer > 20262 ng/mlDDU (0-234) H 07/26/20 10:07 ABG pH 7.402 (7.320-7.450) 08/06/20 06:00 POC ABG pCO2 58.9 mmHg (32.0-48.0) H 08/06/20 06:00 POC ABG pO2 53.0 mmHg (83-108) L 08/06/20 06:00 POC ABG HCO3 35.8 08/06/20 06:00 POC ABG Base Excess 9.2 08/06/20 06:00 ABG Hemoglobin 12.3 (12.0-17.5) 08/06/20 06:00 ABG Oxyhemoglobin 85.7 (94-98) L 08/06/20 06:00 ABG Methemoglobin 0.3 (0.0-1.5) 08/06/20 06:00 ABG Sodium 148.4 mmol/L (136.0-145.0) H 08/06/20 06:00 ABG Potassium 4.7 mmol/L (3.40-4.50) H 08/06/20 06:00 ABG Chloride 109.0 mmol/L (98-107) H 08/06/20 06:00 ABG Glucose 125 mg/dL (65-95) H 08/06/20 06:00 Carboxyhemoglobin 1.3 (0.5-1.5) 08/06/20 06:00 FiO2 50.0 08/06/20 06:00 Sodium 151 mmol/L (137-145) H 08/06/20 08:59 Potassium 4.8 mmol/L (3.6-5.0) 08/06/20 08:59 Chloride 110.7 mmol/L (98-107) H 08/06/20 08:59 Carbon Dioxide 36 mmol/L (22-30) H 08/06/20 08:59 Anion Gap 9 mmol/L 08/06/20 08:59 BUN 29 mg/dL (9-20) H 08/06/20 08:59 Creatinine 0.7 mg/dL (0.8-1.3) L 08/06/20 08:59 Estimated GFR > 60 ml/min 08/06/20 08:59 BUN/Creatinine Ratio 41 % 08/06/20 08:59 Glucose 194 mg/dL (75-100) H 08/06/20 08:59 POC Glucose 122 mg/dL (70-105) H 08/06/20 05:24 Calcium 8.4 mg/dL (8.4-10.2) 08/06/20 08:59 Phosphorus 3.10 mg/dL (2.5-4.5) 08/06/20 08:59 Magnesium 2.30 mg/dL (1.7-2.3) 08/06/20 08:59 Ferritin 1079.0 ng/mL (30.0-300.0) H 07/26/20 10:07 Total Bilirubin 0.40 mg/dL (0.1-1.2) 07/31/20 11:04 Direct Bilirubin < 0.2 mg/dL (0-0.2) 07/22/20 04:31 Indirect Bilirubin 0.0 mg/dL 07/22/20 04:31 AST 21 units/L (5-40) 07/31/20 11:04 ALT 22 units/L (7-56) 07/31/20 11:04 Alkaline Phosphatase 168 units/L (35-129) H 07/31/20 11:04 Lactate Dehydrogenase 708 units/L (91-180) H 07/26/20 10:07 Total Creatine Kinase 174 units/L (55-170) H 07/30/20 10:33 CK-MB (CK-2) 4.5 ng/mL (0.0-4.0) H 07/30/20 10:33 CK-MB (CK-2) Rel Index 2.5 (0-4) 07/30/20 10:33 Troponin T 0.018 ng/mL (0.00-0.029) 07/30/20 10:33 C-Reactive Protein 6.10 mg/dL (0.00-1.30) H 07/26/20 10:07 NT-Pro-B Natriuret Pep 290.3 pg/mL (0-900) 07/18/20 16:33 Total Protein 7.2 g/dL (6.3-8.2) 07/31/20 11:04 Albumin 3.1 g/dL (3.9-5) L 07/31/20 11:04 Albumin/Globulin Ratio 0.8 % 07/31/20 11:04 Triglycerides 207 mg/dL (2-149) H 08/03/20 04:34 Procalcitonin 0.94 ng/mL (<0.15) 07/17/20 22:48 Arterial Blood Glucose 125 mg/dL (65-95) H 08/06/20 06:00 Arterial Blood Ionized Calcium 4.7 mg/dL (4.6-5.3) 08/06/20 06:00 Urine Color Yellow (Yellow) 08/02/20 11:30 Urine Turbidity Clear (Clear) 08/02/20 11:30 Urine pH 5.0 (5.0-7.0) 08/02/20 11:30 Ur Specific [place] 1.027 (1.003-1.030) 08/02/20 11:30 Urine Protein <15 mg/dl mg/dL (Negative) 08/02/20 11:30 Urine Glucose (UA) Neg mg/dL (Negative) 08/02/20 11:30 Urine Ketones Neg mg/dL (Negative) 08/02/20 11:30 Urine Blood Neg (Negative) 08/02/20 11:30 Urine Nitrite Neg (Negative) 08/02/20 11:30 Urine Bilirubin Neg (Negative) 08/02/20 11:30 Urine Urobilinogen < 2.0 mg/dL (<2.0) 08/02/20 11:30 Ur Leukocyte Esterase Neg (Negative) 08/02/20 11:30 Urine WBC (Auto) 1.0 /HPF (0.0-6.0) 08/02/20 11:30 Urine RBC (Auto) 3.0 /HPF (0.0-6.0) 08/02/20 11:30 Hyaline Casts 1 /LPF 08/02/20 11:30 Granular Casts 1 /LPF 08/02/20 11:30 Urine Mucus Few /HPF 08/02/20 11:30 Coronavirus (PCR) Positive (Negative) A 07/18/20 08:50 SARS-CoV-2 IgG Ab Reactive (NonReactive) A 07/21/20 05:24 Microbiology: Microbiology 08/02/20 13:32 Peripheral/Venous Blood Culture - Preliminary NO GROWTH AFTER 72 HOURS 08/02/20 13:32 Peripheral/Venous Blood Culture - Preliminary NO GROWTH AFTER 72 HOURS Cabrera/IV: Voiding Method Condom Catheter IV Catheter Type [Left Upper PICC Line arm] IV Catheter Type [Left Hand] INT / Saline Lock IV Catheter Type [Left Wrist] INT / Saline Lock IV Catheter Type [Left INT / Saline Lock Antecubital] IV Catheter Type [Right Distal INT / Saline Lock Port Hand] Active Medications - Current Medications Current Medications: Generic Name Dose Route Start Last Admin Trade Name Freq PRN Reason Stop Dose Admin Acetaminophen 650 mg 07/17/20 22:21 08/05/20 11:09 Acetaminophen 325 Mg Tab PO 650 mg Q4H PRN Administration Pain MILD(1-3)/Fever >100.5/AWAD Albuterol 2.5 mg 07/18/20 16:14 07/18/20 19:45 Albuterol 2.5 Mg/3 Ml Nebu IH 2.5 mg Q4HRT PRN Administration Shortness Of Breath Lipase/Protease/Amylase 1 each 07/31/20 12:23 Lipase 10,500/Protease 25,000/Amylase 43,750 (Units) Dr Olson FEEDTUBE PRN PRN For Clogged Feeding Tube Dexamethasone 6 mg 07/31/20 11:00 08/05/20 11:09 Dexamethasone 4 Mg/Ml Vial IV 6 mg Q24HR SHERON Administration Enoxaparin Sodium 40 mg 07/18/20 22:00 08/05/20 20:59 Enoxaparin 40 Mg/0.4 Ml Inj SUB-Q 40 mg QDAY@2200 SHERON Administration Protocol Famotidine 20 mg 08/01/20 10:00 08/05/20 20:59 Famotidine 20 Mg Tab PO 20 mg BID SHERON Administration Fentanyl 50 mcg 07/31/20 11:00 08/01/20 21:22 Fentanyl 100 Mcg/2 Ml Inj IV 50 mcg Q10MIN PRN Administration ANALGESIA Hydrophilic Ointment 1 applic 07/31/20 11:00 Lip Therapy Vaseline TP Q2H PRN Dry Lips Propofol 1,000 mg in 100 mls @ 2.658 mls/hr 07/31/20 08:00 08/06/20 10:45 Diprivan 10 Mg/Ml IV 25 mcg/kg/min TITR SHERON 13.29 mls/hr Administration Protocol 5 MCG/KG/MIN Norepinephrine 4 mg in 250 mls @ 7.5 mls/hr 07/31/20 09:00 08/01/20 02:37 Levophed Drip 4 Mg/Ns 250 Ml IV 0 mcg/min TITR SHERON 0 mls/hr Titration Protocol 2 MCG/MIN Fentanyl Citrate 2,000 mcg in 100 mls @ 4.43 mls/hr 07/31/20 11:00 08/06/20 04:21 Fentanyl Drip Premix IV 2 mcg/kg/hr TITR SHERON 8.86 mls/hr Administration Protocol 1 MCG/KG/HR Lorazepam 1 mg 08/01/20 10:17 08/05/20 18:30 Lorazepam 2 Mg/Ml Vial IV 1 mg Q4H PRN Administration Agitation Magnesium Hydroxide 30 ml 07/17/20 22:21 08/05/20 11:11 Magnesium Hydroxide (Mom) Oral Liqd Udc PO 30 ml Q4H PRN Administration Constipation Multi-Ingred Cream/Lotion/Oil/Oint 1 applic 07/31/20 10:55 Mineral Oil/Petrolatum, White Ophth Oint 3.5 Gm OU Q4H PRN Dry Eye(s) Ondansetron HCl 4 mg 07/17/20 22:21 07/20/20 02:21 Ondansetron 4 Mg/2 Ml Inj IV 4 mg Q8H PRN Administration Nausea And Vomiting Senna/Docusate Sodium 2 tab 08/03/20 11:00 08/05/20 20:59 Sennosides/Docusate Sodium 8.6/50 Mg Tab PO 2 tab BID SHERON Administration Simple Syrup 15 ml 07/31/20 12:23 Simple Syrup 15 Ml FEEDTUBE PRN PRN Hypoglycemia Simple Syrup 30 ml 07/31/20 12:23 Simple Syrup 15 Ml FEEDTUBE PRN PRN Hypoglycemia Sodium Bicarbonate 325 mg 07/31/20 12:23 Sodium Bicarbonate 325 Mg Tab FEEDTUBE PRN PRN For Clogged Feeding Tube Sodium Chloride 10 ml 07/17/20 22:01 07/17/20 22:13 Sodium Chloride 0.9% 10 Ml Flush Syringe IV 10 ml PRN PRN Administration LINE FLUSH Sodium Chloride 10 ml 12/28/20 10:00 08/05/20 21:00 Sodium Chloride 0.9% 10 Ml Flush Syringe IV 10 ml BID SHERON Administration Trazodone HCl 50 mg 07/30/20 22:00 08/05/20 20:59 Trazodone 50 Mg Tab PO 50 mg QHS SHERON Administration Nutrition/Malnutrition Assess - Dietary Evaluation Nutrition/Malnutrition Findings: Nutrition Notes Start: 07/23/20 13:19 Freq: Status: Active Protocol: Document 08/06/20 10:06 (Rec: 08/06/20 10:13 [id number]) Nutrition Notes Need for Assessment generated from: MD Order Initial or Follow up Reassessment Current Diagnosis Respiratory Failure Other Pertinent Diagnosis COVID-19 (+), pneu, prerenal azotemia Current Diet Vital AF 1.2 at 70ml/hr Labs/Tests Na 151 BUN 29 Cr 0.7 BG 194 Pertinent Medications Reviewed Height 5 ft 11 in Weight 89.7 kg [place] Body Weight (kg) 78.18 BMI 27.6 Weight Status Overweight Subjective/Other Information MD order for TF. Pt to be proned. Pt without BM noted in chart. Percent of energy/protein needs met: 97%/100% Burn Absent Trauma Absent Current % PO Negligible Minimum of two criteria No Energy Intake (severe) < or equal to 50% Estimated Energy Requirement > or equal to 5 days #1 Nutrition Diagnosis Inadequate oral intake Diagnosis Progress(for reassessment Continues documentation) Is patient on ventilator? Yes Is Patient Ambulatory and/or Out of Bed No REE-([facility]-confined to bed) 6588.680 Calculation Used for Recommendations [facility] Additional Notes Pro needs 1.2-2g/k-176g/ day Fluid needs 1ml/kcal Nutrition Intervention Change Diet Order: Continue TF Nutrition Support: Vital AF 1.2 at 70ml/hr with 300ml water flush q4h until hypernatremia resolved; then 115ml q4h. When pronin hr proned: Vital AF 1.2 at 20 ml/hr, flush 100 ml q4h for hypernatremia, or per MD; then 50 ml q4h once resolved. 12 hr supine: Vital AF 1.2 at 120 ml/hr, flush 350 ml q4h for hypernatremia, or per MD; then 180 q4h once resolved. Kcal 2,016 Protein (gm) 126 Carbohydrates (gm) 186 Fat (gm) 91 Fluid (mL) 1,362 Goal #1 TF tolerance Goal #2 TF to meet at least 75% energy and pro needs Anticipated Discharge Needs: Unable to determine at this time Follow-Up By: 08/09/20 Additional Comments FU for TF tolerance, Na labs
[2020-08-06] MEDS: ACETAMINOPHEN 325 MG TAB PO PRN (13:14)
[2020-08-06] MEDS ORDERED: DEXTROSE 50% IN WATER (25GM) 50 ML SYRINGE IV PRN (13:14)
[2020-08-06] MEDS ORDERED: INSULIN LISPRO 100 UNIT/ML VIAL 3 mL SUB-Q SCH (14:00)
[2020-08-06] MEDS: ENOXAPARIN 40 MG/0.4 ML INJ SUB-Q SCH (23:02)
[2020-08-06] MEDS: traZODone 50 MG TAB PO SCH (23:02)
[2020-08-07] MEDS: fentaNYL DRIP Premix 2,000 MCG/100 ML BAG IV SCH ×3 (04:33→18:56)
[2020-08-07] MEDS: INSULIN LISPRO 100 UNIT/ML VIAL 3 mL SUB-Q SCH ×4 (05:28→17:54)
[2020-08-07 06:08] LABS: Basophils % (Auto) 0.3 % (0.0-1.8); Eosinophils # (Auto) 0.2 K/mm3 (0.0-0.4); Eosinophils % (Auto) 2.1 % (0.0-4.3); Hemoglobin 11.3 gm/dl (11.8-15.2); Lymphocytes # (Auto) 1.3 K/mm3 (1.2-5.4); Lymphocytes % (Auto) 11.5 % (13.4-35.0); Mean Corpuscular HGB Conc 32 % (32-34); Mean Corpuscular Volume 97 fl (84-94); Monocytes # (Auto) 0.3 K/mm3 (0.0-0.8); Monocytes % (Auto) 3.2 % (0.0-7.3); Platelet Count 103 K/mm3 (140-440); Red Blood Count 3.59 M/mm3 (3.65-5.03); Red Cell Distribution Width 13.5 % (13.2-15.2)
[2020-08-07 06:16] LABS: Alanine Aminotransferase 44 units/L (7-56); Albumin 2.8 g/dL (3.9-5); Blood Urea Nitrogen 29 mg/dL (9-20); Calcium 8.4 mg/dL (8.4-10.2); Hemolysis Index 8
[2020-08-07 06:17] LABS: BUN/Creatinine Ratio 58
[2020-08-07] MEDS: FAMOTIDINE 20 MG TAB PO SCH ×2 (09:07→21:57)
[2020-08-07] MEDS: dexAMETHasone 4 MG/ML VIAL IV SCH (09:07)
[2020-08-07] MEDS: SENNOSIDES/DOCUSATE SODIUM 8.6/50 MG TAB PO SCH ×2 (09:07→21:57)
--- NOTE | 2020-08-07 09:16 | Progress Note ---
Assessment and Plan 60 y/o male with chest discomfort, shortness of breath and abnormal CXR, COVID Positive 08/07/20: Will prone again today. Wean FiO2 for sats >88% and PaO2 >55. Continue to monitor daily urine function and output. I again today explained the severity of the Mr. Suarez's clinical state as best I could using laymen terms. The other family member on the phone says that the communication has not bee consistent. The patient received Remdesivir while he was on the floor. He did get all 5 doses. I explained to the family that there is no indication for longer therapy or ID would have recommended. I also explained to them that I loja ve extended the steroids to see if this would help beyond the current clinical recommendations. I also explained again that there is no cure for COVID 19 and that all measures are experimental as well as supportive. I also explained why he needs sedation while intubated and especially when proning. I am still not sure that they fully understand the extent of his illness but will continue to speak with them. Guarded prognosis. 08/06/20: Increase PEEP today to 16. Repeat gas tomorrow morning. Wean FiO2 today for sats >88%. Spoke with RT and PaO2 of 55 and greater are ok. will prone tonight for 12 hours at least. Remains in sinus tach. No labs drawn this am will order for stat this morning including BMP and Mag and Phos, CBC. Spoke with this am to update her. She is upset and asks to do everything for him that we can which I told her we would. I was also very honest about the severity of the disease which made her even more sad. 08/05/20: Did not increase PEEP yesterday. PaO2 improved on own. Will wean FiO2 down today for sats >88%. Hold on proning for now. Continue steroids. Needs better rate control. Most likely sinus tach from hypoxemia, but needs 12 lead if not done yet. Needs labs checked to assess electrolytes. Prognosis remains guarded to poor. Will attempt to reach today, if not today tomorrow. 08/04/20: Will increase PEEP to 16 today. If no improvement in the next 24 hours then will start proning patient tomorrow night. Continue steroids. Overall prognosis remains very guarded. 08/03/20: Chemistry not ordered, ordered today. Follow up blood cultures. Increased PEEP to 14 and RT will attempt to wean FiO2 back down to 50's. Will continue steroids at current dosing for now. He has already completed to original 10 days. Given some improvement, would like to continue. Overall prognosis remains very guarded. 08/02/20: Check blood and urine cultures along with UA. Will check repeat CXR. Repeat Chemistry tomorrow. Hold on abx therapy for right now. Prognosis remains guarded. Continue steroids. Wean FiO2 for sats >88% 08/01/20: Overall prognosis here is very very guarded to poor. Will consider proning patient later today if not able to wean FiO2 any further this afternoon. Per CM, wants to come see patient which is very reasonable. Will continue steroids despite completing 10 days of this. 07/29/20: Supportive measures. Proning and wean as tolerated. 07/28/20: No new recommendations as of right now. When beds become available will move patient down stairs for closer monitoring. 07/27/20: Difficult situation. Patient appears to be not responding to any therapy. Steroids finished yesterday. Given the degree of inflammation will restart steroids for at least another 72-96 hours. In no improvement will stop. Not much else to do medical therapy [place]. Continue to keep patient net ne gative. Still remains high risk for intubation and if intubated given his current response to steroids, very high mortality. 07/26/20: No new recs for today. Patient really needs to try to prone as much as possible during the day and sleep prone at night. He remains a high risk for cardiac arrest and intubation. 07/25/20: very high risk for cardiac arrest from hypoxemia, but no available beds in ICU. Given COVID status, ideally would not like to use bipap but may have to in the event of continued desats. While proning does better and does not need the mask along with HFNC. Encourage to prone as long as possible. 1. Continue steroids for 10 days. 2. Continue Remdesivir. Not a candidate for Convalescent Plasma 3. Please ask patient prone as tolerated during the day and sleep prone at night. Currently doing and tolerating 4. Agree with daily lasix but will need labs to monitor renal function and electrolytes. Needs labs for today. 5. Guarded prognosis to poor now with increasing oxygen requirement. May require intubation and high risk for cardiac arrest. CCT 31 Subjective Date of service: 08/07/20 Principal diagnosis: Acute respiratory failure with hypoxia, Covid pneumonia Interval history: Tolerated proning on yesterday. Nursing asking for [place] which is not unreasonable. Spoke with and another family member over the phone this morning. Per the , I have not been explaining things to her in a way that she could understand so she ask that her family member tell her after I speak with her. Objective Vital Signs - 12hr 08/06/20 08/06/20 08/06/20 21:16 21:30 21:46 Temperature Pulse Rate 91 H 88 89 Respiratory 31 H 30 H 30 H Rate Blood Pressure 114/73 120/69 120/69 O2 Sat by Pulse 99 98 99 Oximetry 08/06/20 08/06/20 08/06/20 22:00 22:16 22:30 Temperature Pulse Rate 87 88 89 Respiratory 30 H 30 H 30 H Rate Blood Pressure 115/66 115/66 110/61 O2 Sat by Pulse 98 100 98 Oximetry 08/06/20 08/06/20 08/06/20 22:46 23:00 23:16 Temperature Pulse Rate 90 92 H 77 Respiratory 30 H 29 H 32 H Rate Blood Pressure 110/61 108/69 159/80 O2 Sat by Pulse 99 98 97 Oximetry 08/06/20 08/06/20 08/06/20 23:30 23:37 23:45 Temperature Pulse Rate 89 97 H 90 Respiratory 22 19 Rate Blood Pressure 158/74 156/74 164/83 O2 Sat by Pulse 97 98 96 Oximetry 08/06/20 08/07/20 08/07/20 23:48 00:00 00:15 Temperature 98.9 F Pulse Rate 98 H 99 H Respiratory 28 H 31 H Rate Blood Pressure 142/71 132/81 O2 Sat by Pulse 97 96 Oximetry 08/07/20 08/07/20 08/07/20 00:30 00:45 01:00 Temperature Pulse Rate 94 H 99 H 104 H Respiratory 21 20 21 Rate Blood Pressure 158/83 131/72 131/72 O2 Sat by Pulse 96 96 99 Oximetry 08/07/20 08/07/20 08/07/20 01:16 01:30 01:46 Temperature Pulse Rate 107 H 102 H 102 H Respiratory 28 H 18 31 H Rate Blood Pressure 157/113 157/113 131/72 O2 Sat by Pulse 97 98 98 Oximetry 08/07/20 08/07/20 08/07/20 02:00 02:15 02:30 Temperature Pulse Rate 112 H 99 H 96 H Respiratory 24 20 29 H Rate Blood Pressure 131/72 143/83 145/79 O2 Sat by Pulse 97 98 98 Oximetry 08/07/20 08/07/20 08/07/20 02:45 03:00 03:15 Temperature Pulse Rate 97 H 94 H 94 H Respiratory 40 H 18 22 Rate Blood Pressure 132/75 142/75 125/76 O2 Sat by Pulse 98 97 97 Oximetry 08/07/20 08/07/20 08/07/20 03:18 03:30 03:46 Temperature 98.4 F Pulse Rate 96 H 94 H Respiratory 32 H 15 Rate Blood Pressure 134/80 154/82 O2 Sat by Pulse 98 99 Oximetry 08/07/20 08/07/20 08/07/20 04:00 04:15 04:30 Temperature Pulse Rate 105 H 101 H 101 H Respiratory 22 20 17 Rate Blood Pressure 124/81 143/81 137/83 O2 Sat by Pulse 98 98 98 Oximetry 08/07/20 08/07/20 08/07/20 04:45 05:00 05:15 Temperature Pulse Rate 104 H 111 H 106 H Respiratory 33 H 28 H 20 Rate Blood Pressure 154/92 162/96 139/83 O2 Sat by Pulse 97 96 96 Oximetry 08/07/20 08/07/20 08/07/20 05:25 05:30 05:45 Temperature Pulse Rate 102 H 107 H 107 H Respiratory 27 H 20 Rate Blood Pressure 162/96 164/80 159/87 O2 Sat by Pulse 97 96 95 Oximetry 08/07/20 08/07/20 08/07/20 06:00 06:15 06:30 Temperature Pulse Rate 107 H 111 H 108 H Respiratory 22 27 H 25 H Rate Blood Pressure 164/80 169/78 157/79 O2 Sat by Pulse 96 95 95 Oximetry 08/07/20 08/07/20 06:45 07:29 Temperature Pulse Rate 103 H 122 H Respiratory 22 Rate Blood Pressure 141/78 188/94 O2 Sat by Pulse 95 94 Oximetry Constitutional: other (orally intubated on vent) Eyes: non-icteric ENT: oropharynx moist Neck: supple Ascultation: Bilateral: diminished breath sounds, rhonchi Cardiovascular: regular rate and rhythm, other (tachycardia) Gastrointestinal: normoactive bowel sounds, soft, non-tender, non-distended Integumentary: normal Extremities: no cyanosis Neurologic: normal mental status, non-focal exam CBC and BMP: 08/07/20 04:00 08/07/20 04:00 ABG, PT/INR, D-dimer: ABG ABG pH 7.377 (7.320-7.450) 08/07/20 05:16 POC ABG pCO2 62.8 mmHg (32.0-48.0) H 08/07/20 05:16 POC ABG pO2 75.0 mmHg (83-108) L 08/07/20 05:16 POC ABG HCO3 36.1 08/07/20 05:16 PT/INR, D-dimer PT 13.7 Sec. (12.2-14.9) 07/18/20 04:31 INR 1.06 (0.87-1.13) 07/18/20 04:31 D-Dimer > 39042 ng/mlDDU (0-234) H 07/26/20 10:07 Abnormal lab findings: Abnormal Labs 07/17/20 07/17/20 07/17/20 17:30 17:30 22:48 WBC RBC Hgb Hct MCV MCH MCHC 35 H RDW Plt Count Lymph % (Auto) 10.5 L Lymph # (Auto) 0.7 L Seg Neutrophils % 85.3 H Lymphocytes % (Manual) Seg Neutrophils # Seg Neutrophils # Man Lymphocytes # (Manual) D-Dimer 314.21 H POC ABG pCO2 POC ABG pO2 ABG Hemoglobin ABG Oxyhemoglobin ABG Sodium ABG Potassium ABG Chloride ABG Glucose Sodium Chloride Carbon Dioxide BUN 1 L Creatinine Glucose 154 H POC Glucose Calcium Magnesium Ferritin Alkaline Phosphatase Lactate Dehydrogenase Total Creatine Kinase CK-MB (CK-2) C-Reactive Protein Total Protein Albumin Triglycerides Arterial Blood Glucose Arterial Blood Ionized Calcium Coronavirus (PCR) SARS-CoV-2 IgG Ab 07/17/20 07/17/20 07/18/20 22:48 22:48 04:31 WBC RBC Hgb Hct MCV MCH 33 H MCHC 35 H RDW 13.1 L Plt Count Lymph % (Auto) Lymph # (Auto) Seg Neutrophils % Lymphocytes % (Manual) 5.0 L Seg Neutrophils # Seg Neutrophils # Man 8.1 H Lymphocytes # (Manual) 0.4 L D-Dimer POC ABG pCO2 POC ABG pO2 ABG Hemoglobin ABG Oxyhemoglobin ABG Sodium ABG Potassium ABG Chloride ABG Glucose Sodium Chloride Carbon Dioxide BUN Creatinine Glucose 124 H POC Glucose Calcium Magnesium Ferritin 889.3 H Alkaline Phosphatase Lactate Dehydrogenase 832 H Total Creatine Kinase CK-MB (CK-2) C-Reactive Protein 17.70 H Total Protein Albumin Triglycerides Arterial Blood Glucose Arterial Blood Ionized Calcium Coronavirus (PCR) SARS-CoV-2 IgG Ab 07/18/20 07/18/20 07/18/20 04:31 08:50 18:48 WBC RBC Hgb Hct MCV MCH MCHC RDW Plt Count Lymph % (Auto) Lymph # (Auto) Seg Neutrophils % Lymphocytes % (Manual) Seg Neutrophils # Seg Neutrophils # Man Lymphocytes # (Manual) D-Dimer 275.27 H POC ABG pCO2 POC ABG pO2 ABG Hemoglobin ABG Oxyhemoglobin ABG Sodium ABG Potassium ABG Chloride ABG Glucose Sodium Chloride Carbon Dioxide 31 H D BUN 23 H Creatinine Glucose 143 H POC Glucose Calcium Magnesium Ferritin Alkaline Phosphatase Lactate Dehydrogenase Total Creatine Kinase CK-MB (CK-2) C-Reactive Protein Total Protein Albumin Triglycerides Arterial Blood Glucose Arterial Blood Ionized Calcium Coronavirus (PCR) Positive A SARS-CoV-2 IgG Ab 07/18/20 07/18/20 07/20/20 18:48 18:48 08:56 WBC RBC Hgb Hct MCV MCH MCHC RDW Plt Count Lymph % (Auto) Lymph # (Auto) Seg Neutrophils % Lymphocytes % (Manual) Seg Neutrophils # Seg Neutrophils # Man Lymphocytes # (Manual) D-Dimer POC ABG pCO2 POC ABG pO2 ABG Hemoglobin ABG Oxyhemoglobin ABG Sodium ABG Potassium ABG Chloride ABG Glucose Sodium Chloride Carbon Dioxide BUN 22 H Creatinine Glucose 219 H POC Glucose Calcium Magnesium Ferritin 1164.0 H Alkaline Phosphatase Lactate Dehydrogenase 560 H 739 H Total Creatine Kinase CK-MB (CK-2) C-Reactive Protein 18.00 H 17.50 H Total Protein Albumin 3.0 L Triglycerides Arterial Blood Glucose Arterial Blood Ionized Calcium Coronavirus (PCR) SARS-CoV-2 IgG Ab 07/20/20 07/20/20 07/21/20 08:56 08:56 05:24 WBC RBC Hgb Hct MCV MCH MCHC RDW Plt Count Lymph % (Auto) Lymph # (Auto) Seg Neutrophils % Lymphocytes % (Manual) Seg Neutrophils # Seg Neutrophils # Man Lymphocytes # (Manual) D-Dimer 9523.70 H POC ABG pCO2 POC ABG pO2 ABG Hemoglobin ABG Oxyhemoglobin ABG Sodium ABG Potassium ABG Chloride ABG Glucose Sodium Chloride Carbon Dioxide BUN Creatinine Glucose POC Glucose Calcium Magnesium Ferritin 1581.0 H Alkaline Phosphatase Lactate Dehydrogenase Total Creatine Kinase CK-MB (CK-2) C-Reactive Protein Total Protein Albumin Triglycerides Arterial Blood Glucose Arterial Blood Ionized Calcium Coronavirus (PCR) SARS-CoV-2 IgG Ab Reactive A 07/22/20 07/24/20 07/26/20 04:31 13:26 10:07 WBC RBC Hgb Hct MCV MCH MCHC RDW Plt Count Lymph % (Auto) Lymph # (Auto) Seg Neutrophils % Lymphocytes % (Manual) Seg Neutrophils # Seg Neutrophils # Man Lymphocytes # (Manual) D-Dimer > 77837 H POC ABG pCO2 POC ABG pO2 ABG Hemoglobin ABG Oxyhemoglobin ABG Sodium ABG Potassium ABG Chloride ABG Glucose Sodium 146 H Chloride Carbon Dioxide 32 H BUN 28 H 26 H Creatinine Glucose 144 H 116 H POC Glucose Calcium 8.3 L Magnesium Ferritin Alkaline Phosphatase Lactate Dehydrogenase Total Creatine Kinase CK-MB (CK-2) C-Reactive Protein Total Protein Albumin 3.3 L Triglycerides Arterial Blood Glucose Arterial Blood Ionized Calcium Coronavirus (PCR) SARS-CoV-2 IgG Ab 07/26/20 07/26/20 07/27/20 10:07 10:07 19:45 WBC RBC Hgb Hct MCV MCH MCHC RDW Plt Count Lymph % (Auto) Lymph # (Auto) Seg Neutrophils % Lymphocytes % (Manual) Seg Neutrophils # Seg Neutrophils # Man Lymphocytes # (Manual) D-Dimer POC ABG pCO2 POC ABG pO2 ABG Hemoglobin ABG Oxyhemoglobin ABG Sodium ABG Potassium ABG Chloride ABG Glucose Sodium Chloride 97.4 L Carbon Dioxide 33 H BUN 27 H Creatinine Glucose 175 H POC Glucose Calcium Magnesium Ferritin 1079.0 H Alkaline Phosphatase Lactate Dehydrogenase 708 H Total Creatine Kinase CK-MB (CK-2) C-Reactive Protein 6.10 H Total Protein Albumin Triglycerides Arterial Blood Glucose Arterial Blood Ionized Calcium Coronavirus (PCR) SARS-CoV-2 IgG Ab 07/29/20 07/30/20 07/30/20 02:09 10:33 11:54 WBC RBC Hgb Hct MCV MCH MCHC RDW Plt Count Lymph % (Auto) Lymph # (Auto) Seg Neutrophils % Lymphocytes % (Manual) Seg Neutrophils # Seg Neutrophils # Man Lymphocytes # (Manual) D-Dimer POC ABG pCO2 POC ABG pO2 ABG Hemoglobin ABG Oxyhemoglobin ABG Sodium ABG Potassium ABG Chloride ABG Glucose Sodium Chloride Carbon Dioxide BUN Creatinine Glucose POC Glucose 183 H Calcium Magnesium 3.00 H Ferritin Alkaline Phosphatase Lactate Dehydrogenase Total Creatine Kinase 174 H CK-MB (CK-2) 4.5 H C-Reactive Protein Total Protein Albumin Triglycerides Arterial Blood Glucose Arterial Blood Ionized Calcium Coronavirus (PCR) SARS-CoV-2 IgG Ab 07/30/20 07/30/20 07/31/20 17:30 23:08 11:04 WBC RBC Hgb Hct MCV MCH MCHC RDW Plt Count Lymph % (Auto) Lymph # (Auto) Seg Neutrophils % Lymphocytes % (Manual) Seg Neutrophils # Seg Neutrophils # Man Lymphocytes # (Manual) D-Dimer POC ABG pCO2 POC ABG pO2 ABG Hemoglobin ABG Oxyhemoglobin ABG Sodium ABG Potassium ABG Chloride ABG Glucose Sodium 151 H D Chloride 109.2 H Carbon Dioxide 32 H BUN 48 H Creatinine Glucose 165 H POC Glucose 199 H 194 H Calcium Magnesium Ferritin Alkaline Phosphatase 168 H Lactate Dehydrogenase Total Creatine Kinase CK-MB (CK-2) C-Reactive Protein Total Protein Albumin 3.1 L Triglycerides Arterial Blood Glucose Arterial Blood Ionized Calcium Coronavirus (PCR) SARS-CoV-2 IgG Ab 07/31/20 07/31/20 07/31/20 11:18 11:23 17:47 WBC RBC Hgb Hct MCV MCH MCHC RDW Plt Count Lymph % (Auto) Lymph # (Auto) Seg Neutrophils % Lymphocytes % (Manual) Seg Neutrophils # Seg Neutrophils # Man Lymphocytes # (Manual) D-Dimer POC ABG pCO2 56.6 H POC ABG pO2 73.1 L ABG Hemoglobin ABG Oxyhemoglobin 92.1 L ABG Sodium ABG Potassium ABG Chloride 108.0 H ABG Glucose 169 H Sodium Chloride Carbon Dioxide BUN Creatinine Glucose POC Glucose 156 H 169 H Calcium Magnesium Ferritin Alkaline Phosphatase Lactate Dehydrogenase Total Creatine Kinase CK-MB (CK-2) C-Reactive Protein Total Protein Albumin Triglycerides Arterial Blood Glucose 169 H Arterial Blood Ionized Calcium Coronavirus (PCR) SARS-CoV-2 IgG Ab 01/10/21 01/10/21 01/10/21 20:58 23:18 23:55 WBC 19.8 H RBC Hgb Hct MCV 95 H MCH MCHC RDW 13.0 L Plt Count Lymph % (Auto) Lymph # (Auto) Seg Neutrophils % Lymphocytes % (Manual) Seg Neutrophils # Seg Neutrophils # Man Lymphocytes # (Manual) D-Dimer POC ABG pCO2 POC ABG pO2 ABG Hemoglobin ABG Oxyhemoglobin ABG Sodium ABG Potassium ABG Chloride ABG Glucose Sodium Chloride Carbon Dioxide BUN Creatinine Glucose POC Glucose 293 H 211 H Calcium Magnesium Ferritin Alkaline Phosphatase Lactate Dehydrogenase Total Creatine Kinase CK-MB (CK-2) C-Reactive Protein Total Protein Albumin Triglycerides Arterial Blood Glucose Arterial Blood Ionized Calcium Coronavirus (PCR) SARS-CoV-2 IgG Ab 08/01/20 08/01/20 08/01/20 03:47 08:30 12:27 WBC RBC Hgb Hct MCV MCH MCHC RDW Plt Count Lymph % (Auto) Lymph # (Auto) Seg Neutrophils % Lymphocytes % (Manual) Seg Neutrophils # Seg Neutrophils # Man Lymphocytes # (Manual) D-Dimer POC ABG pCO2 49.8 H POC ABG pO2 123.4 H ABG Hemoglobin ABG Oxyhemoglobin ABG Sodium ABG Potassium 4.6 H ABG Chloride 111.0 H ABG Glucose 130 H Sodium 154 H Chloride 115.1 H Carbon Dioxide 32 H BUN 49 H Creatinine Glucose 492 H POC Glucose 161 H Calcium 7.2 L D Magnesium Ferritin Alkaline Phosphatase Lactate Dehydrogenase Total Creatine Kinase CK-MB (CK-2) C-Reactive Protein Total Protein Albumin Triglycerides Arterial Blood Glucose 130 H Arterial Blood Ionized Calcium 4.5 L Coronavirus (PCR) SARS-CoV-2 IgG Ab 08/01/20 08/01/20 08/02/20 16:55 23:06 05:00 WBC RBC Hgb Hct MCV MCH MCHC RDW Plt Count Lymph % (Auto) Lymph # (Auto) Seg Neutrophils % Lymphocytes % (Manual) Seg Neutrophils # Seg Neutrophils # Man Lymphocytes # (Manual) D-Dimer POC ABG pCO2 52.5 H POC ABG pO2 69.8 L ABG Hemoglobin ABG Oxyhemoglobin ABG Sodium 147.2 H ABG Potassium ABG Chloride 110.0 H ABG Glucose 177 H Sodium Chloride Carbon Dioxide BUN Creatinine Glucose POC Glucose 195 H 162 H Calcium Magnesium Ferritin Alkaline Phosphatase Lactate Dehydrogenase Total Creatine Kinase CK-MB (CK-2) C-Reactive Protein Total Protein Albumin Triglycerides Arterial Blood Glucose 177 H Arterial Blood Ionized Calcium Coronavirus (PCR) SARS-CoV-2 IgG Ab 08/02/20 08/02/20 08/02/20 05:01 12:05 17:13 WBC RBC Hgb Hct MCV MCH MCHC RDW Plt Count Lymph % (Auto) Lymph # (Auto) Seg Neutrophils % Lymphocytes % (Manual) Seg Neutrophils # Seg Neutrophils # Man Lymphocytes # (Manual) D-Dimer POC ABG pCO2 POC ABG pO2 ABG Hemoglobin ABG Oxyhemoglobin ABG Sodium ABG Potassium ABG Chloride ABG Glucose Sodium Chloride Carbon Dioxide BUN Creatinine Glucose POC Glucose 146 H 166 H 209 H Calcium Magnesium Ferritin Alkaline Phosphatase Lactate Dehydrogenase Total Creatine Kinase CK-MB (CK-2) C-Reactive Protein Total Protein Albumin Triglycerides Arterial Blood Glucose Arterial Blood Ionized Calcium Coronavirus (PCR) SARS-CoV-2 IgG Ab 08/02/20 08/03/20 08/03/20 23:26 04:06 04:34 WBC RBC Hgb Hct MCV MCH MCHC RDW Plt Count Lymph % (Auto) Lymph # (Auto) Seg Neutrophils % Lymphocytes % (Manual) Seg Neutrophils # Seg Neutrophils # Man Lymphocytes # (Manual) D-Dimer POC ABG pCO2 55.6 H POC ABG pO2 66.1 L ABG Hemoglobin 11.9 L ABG Oxyhemoglobin 91.1 L ABG Sodium 145.7 H ABG Potassium 4.8 H ABG Chloride 111.0 H ABG Glucose 195 H Sodium Chloride Carbon Dioxide BUN Creatinine Glucose POC Glucose 157 H Calcium Magnesium Ferritin Alkaline Phosphatase Lactate Dehydrogenase Total Creatine Kinase CK-MB (CK-2) C-Reactive Protein Total Protein Albumin Triglycerides 207 H Arterial Blood Glucose 195 H Arterial Blood Ionized Calcium Coronavirus (PCR) SARS-CoV-2 IgG Ab 08/03/20 08/03/20 08/03/20 05:00 11:55 17:15 WBC RBC Hgb Hct MCV MCH MCHC RDW Plt Count Lymph % (Auto) Lymph # (Auto) Seg Neutrophils % Lymphocytes % (Manual) Seg Neutrophils # Seg Neutrophils # Man Lymphocytes # (Manual) D-Dimer POC ABG pCO2 POC ABG pO2 ABG Hemoglobin ABG Oxyhemoglobin ABG Sodium ABG Potassium ABG Chloride ABG Glucose Sodium Chloride Carbon Dioxide BUN Creatinine Glucose POC Glucose 179 H 173 H 217 H Calcium Magnesium Ferritin Alkaline Phosphatase Lactate Dehydrogenase Total Creatine Kinase CK-MB (CK-2) C-Reactive Protein Total Protein Albumin Triglycerides Arterial Blood Glucose Arterial Blood Ionized Calcium Coronavirus (PCR) SARS-CoV-2 IgG Ab 08/03/20 08/04/20 08/04/20 23:01 03:59 05:30 WBC RBC Hgb Hct MCV MCH MCHC RDW Plt Count Lymph % (Auto) Lymph # (Auto) Seg Neutrophils % Lymphocytes % (Manual) Seg Neutrophils # Seg Neutrophils # Man Lymphocytes # (Manual) D-Dimer POC ABG pCO2 54.6 H POC ABG pO2 66.2 L ABG Hemoglobin 10.8 L ABG Oxyhemoglobin 91.5 L ABG Sodium ABG Potassium ABG Chloride 110.0 H ABG Glucose 201 H Sodium Chloride Carbon Dioxide BUN Creatinine Glucose POC Glucose 222 H 137 H Calcium Magnesium Ferritin Alkaline Phosphatase Lactate Dehydrogenase Total Creatine Kinase CK-MB (CK-2) C-Reactive Protein Total Protein Albumin Triglycerides Arterial Blood Glucose 201 H Arterial Blood Ionized Calcium Coronavirus (PCR) SARS-CoV-2 IgG Ab 08/04/20 08/04/20 08/04/20 06:57 11:50 17:29 WBC RBC Hgb Hct MCV MCH MCHC RDW Plt Count Lymph % (Auto) Lymph # (Auto) Seg Neutrophils % Lymphocytes % (Manual) Seg Neutrophils # Seg Neutrophils # Man Lymphocytes # (Manual) D-Dimer POC ABG pCO2 POC ABG pO2 ABG Hemoglobin ABG Oxyhemoglobin ABG Sodium ABG Potassium ABG Chloride ABG Glucose Sodium 151 H Chloride 111.3 H Carbon Dioxide 36 H BUN 32 H Creatinine Glucose 160 H POC Glucose 158 H 180 H Calcium 8.2 L Magnesium 2.60 H Ferritin Alkaline Phosphatase Lactate Dehydrogenase Total Creatine Kinase CK-MB (CK-2) C-Reactive Protein Total Protein Albumin Triglycerides Arterial Blood Glucose Arterial Blood Ionized Calcium Coronavirus (PCR) SARS-CoV-2 IgG Ab 08/04/20 08/05/20 08/05/20 23:01 04:49 05:11 WBC RBC Hgb Hct MCV MCH MCHC RDW Plt Count Lymph % (Auto) Lymph # (Auto) Seg Neutrophils % Lymphocytes % (Manual) Seg Neutrophils # Seg Neutrophils # Man Lymphocytes # (Manual) D-Dimer POC ABG pCO2 56.7 H POC ABG pO2 80.6 L ABG Hemoglobin 10.9 L ABG Oxyhemoglobin ABG Sodium 145.9 H ABG Potassium ABG Chloride 109.0 H ABG Glucose 160 H Sodium Chloride Carbon Dioxide BUN Creatinine Glucose POC Glucose 160 H 134 H Calcium Magnesium Ferritin Alkaline Phosphatase Lactate Dehydrogenase Total Creatine Kinase CK-MB (CK-2) C-Reactive Protein Total Protein Albumin Triglycerides Arterial Blood Glucose 160 H Arterial Blood Ionized Calcium Coronavirus (PCR) SARS-CoV-2 IgG Ab 08/05/20 08/05/20 08/05/20 11:40 16:54 23:29 WBC RBC Hgb Hct MCV MCH MCHC RDW Plt Count Lymph % (Auto) Lymph # (Auto) Seg Neutrophils % Lymphocytes % (Manual) Seg Neutrophils # Seg Neutrophils # Man Lymphocytes # (Manual) D-Dimer POC ABG pCO2 POC ABG pO2 ABG Hemoglobin ABG Oxyhemoglobin ABG Sodium ABG Potassium ABG Chloride ABG Glucose Sodium Chloride Carbon Dioxide BUN Creatinine Glucose POC Glucose 137 H 243 H 154 H Calcium Magnesium Ferritin Alkaline Phosphatase Lactate Dehydrogenase Total Creatine Kinase CK-MB (CK-2) C-Reactive Protein Total Protein Albumin Triglycerides Arterial Blood Glucose Arterial Blood Ionized Calcium Coronavirus (PCR) SARS-CoV-2 IgG Ab 08/06/20 08/06/20 08/06/20 05:24 06:00 08:59 WBC 14.1 H RBC Hgb 11.5 L Hct MCV 98 H MCH MCHC RDW Plt Count 107 L Lymph % (Auto) Lymph # (Auto) Seg Neutrophils % Lymphocytes % (Manual) Seg Neutrophils # Seg Neutrophils # Man Lymphocytes # (Manual) D-Dimer POC ABG pCO2 58.9 H POC ABG pO2 53.0 L ABG Hemoglobin ABG Oxyhemoglobin 85.7 L ABG Sodium 148.4 H ABG Potassium 4.7 H ABG Chloride 109.0 H ABG Glucose 125 H Sodium Chloride Carbon Dioxide BUN Creatinine Glucose POC Glucose 122 H Calcium Magnesium Ferritin Alkaline Phosphatase Lactate Dehydrogenase Total Creatine Kinase CK-MB (CK-2) C-Reactive Protein Total Protein Albumin Triglycerides Arterial Blood Glucose 125 H Arterial Blood Ionized Calcium Coronavirus (PCR) SARS-CoV-2 IgG Ab 08/06/20 08/06/20 08/06/20 08:59 12:34 17:43 WBC RBC Hgb Hct MCV MCH MCHC RDW Plt Count Lymph % (Auto) Lymph # (Auto) Seg Neutrophils % Lymphocytes % (Manual) Seg Neutrophils # Seg Neutrophils # Man Lymphocytes # (Manual) D-Dimer POC ABG pCO2 POC ABG pO2 ABG Hemoglobin ABG Oxyhemoglobin ABG Sodium ABG Potassium ABG Chloride ABG Glucose Sodium 151 H Chloride 110.7 H Carbon Dioxide 36 H BUN 29 H Creatinine 0.7 L Glucose 194 H POC Glucose 193 H 204 H Calcium Magnesium Ferritin Alkaline Phosphatase Lactate Dehydrogenase Total Creatine Kinase CK-MB (CK-2) C-Reactive Protein Total Protein Albumin Triglycerides Arterial Blood Glucose Arterial Blood Ionized Calcium Coronavirus (PCR) SARS-CoV-2 IgG Ab 08/06/20 08/07/20 08/07/20 23:25 04:00 04:00 WBC RBC 3.59 L Hgb 11.3 L Hct 35.0 L MCV 97 H MCH MCHC RDW Plt Count 103 L Lymph % (Auto) 11.5 L Lymph # (Auto) Seg Neutrophils % 82.9 H Lymphocytes % (Manual) Seg Neutrophils # 9.0 H Seg Neutrophils # Man Lymphocytes # (Manual) D-Dimer POC ABG pCO2 POC ABG pO2 ABG Hemoglobin ABG Oxyhemoglobin ABG Sodium ABG Potassium ABG Chloride ABG Glucose Sodium 151 H Chloride 109.6 H Carbon Dioxide 34 H BUN 29 H Creatinine 0.5 L Glucose 134 H POC Glucose 150 H Calcium Magnesium Ferritin Alkaline Phosphatase Lactate Dehydrogenase Total Creatine Kinase CK-MB (CK-2) C-Reactive Protein Total Protein 5.4 L Albumin 2.8 L Triglycerides Arterial Blood Glucose Arterial Blood Ionized Calcium Coronavirus (PCR) SARS-CoV-2 IgG Ab 08/07/20 08/07/20 04:55 05:16 WBC RBC Hgb Hct MCV MCH MCHC RDW Plt Count Lymph % (Auto) Lymph # (Auto) Seg Neutrophils % Lymphocytes % (Manual) Seg Neutrophils # Seg Neutrophils # Man Lymphocytes # (Manual) D-Dimer POC ABG pCO2 62.8 H POC ABG pO2 75.0 L ABG Hemoglobin 11.9 L ABG Oxyhemoglobin 93.2 L ABG Sodium 148.2 H ABG Potassium ABG Chloride 108.0 H ABG Glucose 150 H Sodium Chloride Carbon Dioxide BUN Creatinine Glucose POC Glucose 116 H Calcium Magnesium Ferritin Alkaline Phosphatase Lactate Dehydrogenase Total Creatine Kinase CK-MB (CK-2) C-Reactive Protein Total Protein Albumin Triglycerides Arterial Blood Glucose 150 H Arterial Blood Ionized Calcium Coronavirus (PCR) SARS-CoV-2 IgG Ab
--- NOTE | 2020-08-07 12:00 | Progress Note ---
Assessment and Plan - Patient Problems (1) Acute respiratory failure with hypoxia Current Visit: Yes Status: Acute Plan to address problem: Patient is currently intubated and on ventilatory support. Wean vent as tolerated, daily ABG, daily spontaneous breathing trial, sedation holiday daily, critical care team consulted. The high probability of a clinically significant, sudden or life threatening deterioration of the [cardiac, pulmonary, neuro] system(s) required my full and direct attention, intervention and personal management. The aggregate critical care time was [65] minutes. This time is in addition to time spent performing reported procedures but includes the following: [x] Data Review and interpretation [x] Patient assessment and monitoring of vital signs [x] Documentation [x] Medication orders and management (2) COVID-19 Current Visit: Yes Status: Acute Plan to address problem: Contact precautions, isolation precaution, IV steroid therapy, IV antibiotic therapy, supportive care. (3) Pneumonia Current Visit: Yes Status: Acute Plan to address problem: Pneumonia protocol: Full course IV antibiotic therapy, supplemental oxygen, supportive care. (4) DVT prophylaxis Current Visit: Yes Status: Acute Plan to address problem: SCD to bilateral lower extremities while in bed, prophylactic anticoagulation (5) Advance care planning Current Visit: Yes Status: Acute Plan to address problem: Disease education conducted, patient is full code, patient has poor prognosis. Prognosis discussed. +30 minutes. History Interval history: 60 YO Male HD #22 with acute hypoxemic respiratory failure, bilateral pneumonia secondary to coronavirus infection, cough who is currently intubated and on ventilatory support. Patient has poor prognosis. Patient currently unable to be weaned from ventilatory support. Patient has poor prognosis. No acute decompensation overnight. Hospitalist Physical - Constitutional Vitals: Temp Pulse Resp BP Pulse Ox 99.4 F 108 H 20 106/73 97 08/07/20 08:00 08/07/20 11:45 08/07/20 11:45 08/07/20 11:45 08/07/20 11:45 General appearance: Present: no acute distress, well-nourished - EENT Eyes: Present: miosis ENT: hearing decreased - Neck Neck: Present: supple - Respiratory Respiratory effort: labored Respiratory: bilateral: diminished, rhonchi - Cardiovascular Rhythm: regular Heart Sounds: Present: S1 & S2 - Extremities Extremities: no ischemia Peripheral Pulses: within normal limits - Abdominal General gastrointestinal: soft, non-tender, non-distended - Integumentary Integumentary: Present: clear, dry - Psychiatric Psychiatric: no appropriate mood/affect, no intact judgment & insight, no memory intact - Neurologic Neurologic: CNII-XII intact, no gait normal HEART Score - HEART Score Troponin: Troponin T 0.018 ng/mL (0.00-0.029) 07/30/20 10:33 Results - Labs CBC & Chem 7: 08/07/20 04:00 08/07/20 04:00 Labs: Laboratory Last Values WBC 10.9 K/mm3 (4.5-11.0) 08/07/20 04:00 RBC 3.59 M/mm3 (3.65-5.03) L 08/07/20 04:00 Hgb 11.3 gm/dl (11.8-15.2) L 08/07/20 04:00 Hct 35.0 % (35.5-45.6) L 08/07/20 04:00 MCV 97 fl (84-94) H 08/07/20 04:00 MCH 32 pg (28-32) 08/07/20 04:00 MCHC 32 % (32-34) 08/07/20 04:00 RDW 13.5 % (13.2-15.2) 08/07/20 04:00 Plt Count 103 K/mm3 (140-440) L 08/07/20 04:00 Lymph % (Auto) 11.5 % (13.4-35.0) L 08/07/20 04:00 [place] % (Auto) 3.2 % (0.0-7.3) 08/07/20 04:00 Eos % (Auto) 2.1 % (0.0-4.3) 08/07/20 04:00 Baso % (Auto) 0.3 % (0.0-1.8) 08/07/20 04:00 Lymph # (Auto) 1.3 K/mm3 (1.2-5.4) 08/07/20 04:00 [place] # (Auto) 0.3 K/mm3 (0.0-0.8) 08/07/20 04:00 Eos # (Auto) 0.2 K/mm3 (0.0-0.4) 08/07/20 04:00 Baso # (Auto) 0.0 K/mm3 (0.0-0.1) 08/07/20 04:00 Add Manual Diff Complete 07/18/20 04:31 Total Counted 100 07/18/20 04:31 Seg Neutrophils % 82.9 % (40.0-70.0) H 08/07/20 04:00 Lymphocytes % (Manual) 5.0 % (13.4-35.0) L 07/18/20 04:31 Monocytes % (Manual) 3.0 % (0.0-7.3) 07/18/20 04:31 Nucleated RBC % Not Reportable 07/18/20 04:31 Seg Neutrophils # 9.0 K/mm3 (1.8-7.7) H 08/07/20 04:00 Seg Neutrophils # Man 8.1 K/mm3 (1.8-7.7) H 07/18/20 04:31 Band Neutrophils # 0.0 K/mm3 07/18/20 04:31 Lymphocytes # (Manual) 0.4 K/mm3 (1.2-5.4) L 07/18/20 04:31 Abs React Lymphs (Man) 0.0 K/mm3 07/18/20 04:31 Monocytes # (Manual) 0.3 K/mm3 (0.0-0.8) 07/18/20 04:31 Eosinophils # (Manual) 0.0 K/mm3 (0.0-0.4) 07/18/20 04:31 Basophils # (Manual) 0.0 K/mm3 (0.0-0.1) 07/18/20 04:31 Metamyelocytes # 0.0 K/mm3 07/18/20 04:31 Myelocytes # 0.0 K/mm3 07/18/20 04:31 Promyelocytes # 0.0 K/mm3 07/18/20 04:31 Blast Cells # 0.0 K/mm3 07/18/20 04:31 WBC Morphology Not Reportable 07/18/20 04:31 Hypersegmented Neuts Not Reportable 07/18/20 04:31 Hyposegmented Neuts Not Reportable 07/18/20 04:31 Hypogranular Neuts Not Reportable 07/18/20 04:31 Smudge Cells Not Reportable 07/18/20 04:31 Toxic Granulation Not Reportable 07/18/20 04:31 Toxic Vacuolation Not Reportable 07/18/20 04:31 Dohle Bodies Not Reportable 07/18/20 04:31 Pelger-Huet Anomaly Not Reportable 07/18/20 04:31 Cheri Rods Not Reportable 07/18/20 04:31 Platelet Estimate Consistent w auto 07/18/20 04:31 Clumped Platelets Not Reportable 07/18/20 04:31 Plt Clumps, EDTA Not Reportable 07/18/20 04:31 Large Platelets Not Reportable 07/18/20 04:31 Giant Platelets Not Reportable 07/18/20 04:31 Platelet Satelliting Not Reportable 07/18/20 04:31 Plt Morphology Comment Not Reportable 07/18/20 04:31 RBC Morphology Not Reportable 07/18/20 04:31 Dimorphic RBCs Not Reportable 07/18/20 04:31 Polychromasia Not Reportable 07/18/20 04:31 Hypochromasia Not Reportable 07/18/20 04:31 Poikilocytosis Not Reportable 07/18/20 04:31 Anisocytosis 1+ 07/18/20 04:31 Microcytosis Not Reportable 07/18/20 04:31 Macrocytosis Not Reportable 07/18/20 04:31 Spherocytes Not Reportable 07/18/20 04:31 Pappenheimer Bodies Not Reportable 07/18/20 04:31 Sickle Cells Not Reportable 07/18/20 04:31 Target Cells Not Reportable 07/18/20 04:31 Tear Drop Cells Not Reportable 07/18/20 04:31 Ovalocytes Not Reportable 07/18/20 04:31 Helmet Cells Not Reportable 07/18/20 04:31 Siu-[place] Bodies Not Reportable 07/18/20 04:31 [place] Rings Not Reportable 07/18/20 04:31 [place] Cells Not Reportable 07/18/20 04:31 Bite Cells Not Reportable 07/18/20 04:31 Crenated Cell Not Reportable 07/18/20 04:31 Elliptocytes Not Reportable 07/18/20 04:31 Acanthocytes (Spur) Not Reportable 07/18/20 04:31 Rouleaux Not Reportable 07/18/20 04:31 Hemoglobin C Crystals Not Reportable 07/18/20 04:31 Schistocytes Not Reportable 07/18/20 04:31 Malaria parasites Not Reportable 07/18/20 04:31 Wilfredo Bodies Not Reportable 07/18/20 04:31 Hem Pathologist Commnt No 07/18/20 04:31 PT 13.7 Sec. (12.2-14.9) 07/18/20 04:31 INR 1.06 (0.87-1.13) 07/18/20 04:31 D-Dimer > 46300 ng/mlDDU (0-234) H 07/26/20 10:07 ABG pH 7.377 (7.320-7.450) 08/07/20 05:16 POC ABG pCO2 62.8 mmHg (32.0-48.0) H 08/07/20 05:16 POC ABG pO2 75.0 mmHg (83-108) L 08/07/20 05:16 POC ABG HCO3 36.1 08/07/20 05:16 POC ABG Base Excess 8.9 08/07/20 05:16 ABG Hemoglobin 11.9 (12.0-17.5) L 08/07/20 05:16 ABG Oxyhemoglobin 93.2 (94-98) L 08/07/20 05:16 ABG Methemoglobin 0.3 (0.0-1.5) 08/07/20 05:16 ABG Sodium 148.2 mmol/L (136.0-145.0) H 08/07/20 05:16 ABG Potassium 4.1 mmol/L (3.40-4.50) 08/07/20 05:16 ABG Chloride 108.0 mmol/L (98-107) H 08/07/20 05:16 ABG Glucose 150 mg/dL (65-95) H 08/07/20 05:16 Carboxyhemoglobin 0.9 (0.5-1.5) 08/07/20 05:16 FiO2 60 08/07/20 05:16 Sodium 151 mmol/L (137-145) H 08/07/20 04:00 Potassium 4.3 mmol/L (3.6-5.0) 08/07/20 04:00 Chloride 109.6 mmol/L (98-107) H 08/07/20 04:00 Carbon Dioxide 34 mmol/L (22-30) H 08/07/20 04:00 Anion Gap 12 mmol/L 08/07/20 04:00 BUN 29 mg/dL (9-20) H 08/07/20 04:00 Creatinine 0.5 mg/dL (0.8-1.3) L 08/07/20 04:00 Estimated GFR > 60 ml/min 08/07/20 04:00 BUN/Creatinine Ratio 58 % 08/07/20 04:00 Glucose 134 mg/dL (75-100) H 08/07/20 04:00 POC Glucose 116 mg/dL (70-105) H 08/07/20 04:55 Calcium 8.4 mg/dL (8.4-10.2) 08/07/20 04:00 Phosphorus 3.10 mg/dL (2.5-4.5) 08/06/20 08:59 Magnesium 2.30 mg/dL (1.7-2.3) 08/06/20 08:59 Ferritin 1079.0 ng/mL (30.0-300.0) H 07/26/20 10:07 Total Bilirubin 0.40 mg/dL (0.1-1.2) 08/07/20 04:00 Direct Bilirubin < 0.2 mg/dL (0-0.2) 07/22/20 04:31 Indirect Bilirubin 0.0 mg/dL 07/22/20 04:31 AST 21 units/L (5-40) 08/07/20 04:00 ALT 44 units/L (7-56) 08/07/20 04:00 Alkaline Phosphatase 99 units/L (35-129) 08/07/20 04:00 Lactate Dehydrogenase 708 units/L (91-180) H 07/26/20 10:07 Total Creatine Kinase 174 units/L (55-170) H 07/30/20 10:33 CK-MB (CK-2) 4.5 ng/mL (0.0-4.0) H 07/30/20 10:33 CK-MB (CK-2) Rel Index 2.5 (0-4) 07/30/20 10:33 Troponin T 0.018 ng/mL (0.00-0.029) 07/30/20 10:33 C-Reactive Protein 6.10 mg/dL (0.00-1.30) H 07/26/20 10:07 NT-Pro-B Natriuret Pep 290.3 pg/mL (0-900) 07/18/20 16:33 Total Protein 5.4 g/dL (6.3-8.2) L 08/07/20 04:00 Albumin 2.8 g/dL (3.9-5) L 08/07/20 04:00 Albumin/Globulin Ratio 1.1 % 08/07/20 04:00 Triglycerides 207 mg/dL (2-149) H 08/03/20 04:34 Procalcitonin 0.94 ng/mL (<0.15) 07/17/20 22:48 Arterial Blood Glucose 150 mg/dL (65-95) H 08/07/20 05:16 Arterial Blood Ionized Calcium 4.9 mg/dL (4.6-5.3) 08/07/20 05:16 Urine Color Yellow (Yellow) 08/02/20 11:30 Urine Turbidity Clear (Clear) 08/02/20 11:30 Urine pH 5.0 (5.0-7.0) 08/02/20 11:30 Ur Specific Manning 1.027 (1.003-1.030) 08/02/20 11:30 Urine Protein <15 mg/dl mg/dL (Negative) 08/02/20 11:30 Urine Glucose (UA) Neg mg/dL (Negative) 08/02/20 11:30 Urine Ketones Neg mg/dL (Negative) 08/02/20 11:30 Urine Blood Neg (Negative) 08/02/20 11:30 Urine Nitrite Neg (Negative) 08/02/20 11:30 Urine Bilirubin Neg (Negative) 08/02/20 11:30 Urine Urobilinogen < 2.0 mg/dL (<2.0) 08/02/20 11:30 Ur Leukocyte Esterase Neg (Negative) 08/02/20 11:30 Urine WBC (Auto) 1.0 /HPF (0.0-6.0) 08/02/20 11:30 Urine RBC (Auto) 3.0 /HPF (0.0-6.0) 08/02/20 11:30 Hyaline Casts 1 /LPF 08/02/20 11:30 Granular Casts 1 /LPF 08/02/20 11:30 Urine Mucus Few /HPF 08/02/20 11:30 Coronavirus (PCR) Positive (Negative) A 07/18/20 08:50 SARS-CoV-2 IgG Ab Reactive (NonReactive) A 07/21/20 05:24 Microbiology: Microbiology 08/02/20 13:32 Peripheral/Venous Blood Culture - Preliminary NO GROWTH AFTER 4 DAYS 08/02/20 13:32 Peripheral/Venous Blood Culture - Preliminary NO GROWTH AFTER 4 DAYS Cabrera/IV: Voiding Method Condom Catheter IV Catheter Type [Left Upper PICC Line arm] IV Catheter Type [Left Hand] INT / Saline Lock IV Catheter Type [Left Wrist] INT / Saline Lock IV Catheter Type [Left INT / Saline Lock Antecubital] IV Catheter Type [Right Distal INT / Saline Lock Port Hand] Active Medications - Current Medications Current Medications: Generic Name Dose Route Start Last Admin Trade Name Freq PRN Reason Stop Dose Admin Acetaminophen 650 mg 07/17/20 22:21 08/06/20 13:14 Acetaminophen 325 Mg Tab PO 650 mg Q4H PRN Administration Pain MILD(1-3)/Fever >100.5/AWAD Albuterol 2.5 mg 07/18/20 16:14 07/18/20 19:45 Albuterol 2.5 Mg/3 Ml Nebu IH 2.5 mg Q4HRT PRN Administration Shortness Of Breath Lipase/Protease/Amylase 1 each 07/31/20 12:23 Lipase 10,500/Protease 25,000/Amylase 43,750 (Units) Dr Olson FEEDTUBE PRN PRN For Clogged Feeding Tube Dexamethasone 6 mg 07/31/20 11:00 08/07/20 09:07 Dexamethasone 4 Mg/Ml Vial IV 6 mg Q24HR SHERON Administration Dextrose 50 ml 08/06/20 13:14 Dextrose 50% In Water (25gm) 50 Ml Syringe IV Q30MIN PRN Hypoglycemia Protocol Enoxaparin Sodium 40 mg 07/18/20 22:00 08/06/20 23:02 Enoxaparin 40 Mg/0.4 Ml Inj SUB-Q 40 mg QDAY@2200 SHERON Administration Protocol Famotidine 20 mg 08/01/20 10:00 08/07/20 09:07 Famotidine 20 Mg Tab PO 20 mg BID SHERON Administration Fentanyl 50 mcg 07/31/20 11:00 08/01/20 21:22 Fentanyl 100 Mcg/2 Ml Inj IV 50 mcg Q10MIN PRN Administration ANALGESIA Hydrophilic Ointment 1 applic 07/31/20 11:00 Lip Therapy Vaseline TP Q2H PRN Dry Lips Propofol 1,000 mg in 100 mls @ 2.658 mls/hr 07/31/20 08:00 08/07/20 07:10 Diprivan 10 Mg/Ml IV 30 mcg/kg/min TITR SHERON 15.948 mls/hr Administration Protocol 5 MCG/KG/MIN Norepinephrine 4 mg in 250 mls @ 7.5 mls/hr 07/31/20 09:00 08/01/20 02:37 Levophed Drip 4 Mg/Ns 250 Ml IV 0 mcg/min TITR SHERON 0 mls/hr Titration Protocol 2 MCG/MIN Fentanyl Citrate 2,000 mcg in 100 mls @ 4.43 mls/hr 07/31/20 11:00 08/07/20 06:20 Fentanyl Drip Premix IV 3 mcg/kg/hr TITR SHERON 13.29 mls/hr Titration Protocol 1 MCG/KG/HR Insulin Human Lispro 0 unit 08/07/20 00:00 08/07/20 05:28 Insulin Lispro 100 Unit/Ml Vial 3 Ml SUB-Q Not Given Q6HR [facility] Protocol Lorazepam 1 mg 08/01/20 10:17 08/05/20 18:30 Lorazepam 2 Mg/Ml Vial IV 1 mg Q4H PRN Administration Agitation Magnesium Hydroxide 30 ml 07/17/20 22:21 08/05/20 11:11 Magnesium Hydroxide (Mom) Oral Liqd Udc PO 30 ml Q4H PRN Administration Constipation Multi-Ingred Cream/Lotion/Oil/Oint 1 applic 07/31/20 10:55 Mineral Oil/Petrolatum, White Ophth Oint 3.5 Gm OU Q4H PRN Dry Eye(s) Ondansetron HCl 4 mg 07/17/20 22:21 07/20/20 02:21 Ondansetron 4 Mg/2 Ml Inj IV 4 mg Q8H PRN Administration Nausea And Vomiting Senna/Docusate Sodium 2 tab 08/03/20 11:00 08/07/20 09:07 Sennosides/Docusate Sodium 8.6/50 Mg Tab PO 2 tab BID SHERON Administration Simple Syrup 15 ml 07/31/20 12:23 Simple Syrup 15 Ml FEEDTUBE PRN PRN Hypoglycemia Simple Syrup 30 ml 07/31/20 12:23 Simple Syrup 15 Ml FEEDTUBE PRN PRN Hypoglycemia Sodium Bicarbonate 325 mg 07/31/20 12:23 Sodium Bicarbonate 325 Mg Tab FEEDTUBE PRN PRN For Clogged Feeding Tube Sodium Chloride 10 ml 07/17/20 22:01 07/17/20 22:13 Sodium Chloride 0.9% 10 Ml Flush Syringe IV 10 ml PRN PRN Administration LINE FLUSH Sodium Chloride 10 ml 07/18/20 10:00 08/07/20 11:47 Sodium Chloride 0.9% 10 Ml Flush Syringe IV 10 ml BID SHERON Administration Trazodone HCl 50 mg 07/30/20 22:00 08/06/20 23:02 Trazodone 50 Mg Tab PO 50 mg QHS SHERON Administration Nutrition/Malnutrition Assess - Dietary Evaluation Nutrition/Malnutrition Findings: Nutrition Notes Start: 07/23/20 13:19 Freq: Status: Active Protocol: Document 08/06/20 10:06 (Rec: 08/06/20 10:13 [id number]) Nutrition Notes Need for Assessment generated from: MD Order Initial or Follow up Reassessment Current Diagnosis Respiratory Failure Other Pertinent Diagnosis COVID-19 (+), pneu, prerenal azotemia Current Diet Vital AF 1.2 at 70ml/hr Labs/Tests Na 151 BUN 29 Cr 0.7 BG 194 Pertinent Medications Reviewed Height 5 ft 11 in Weight 89.7 kg [place] Body Weight (kg) 78.18 BMI 27.6 Weight Status Overweight Subjective/Other Information MD order for TF. Pt to be proned. Pt without BM noted in chart. Percent of energy/protein needs met: 97%/100% Burn Absent Trauma Absent Current % PO Negligible Minimum of two criteria No Energy Intake (severe) < or equal to 50% Estimated Energy Requirement > or equal to 5 days #1 Nutrition Diagnosis Inadequate oral intake Diagnosis Progress(for reassessment Continues documentation) Is patient on ventilator? Yes Is Patient Ambulatory and/or Out of Bed No REE-([place]-St. Jeor-confined to bed) [phone] Calculation Used for Recommendations [facility] Additional Notes Pro needs 1.2-2g/k-176g/ day Fluid needs 1ml/kcal Nutrition Intervention Change Diet Order: Continue TF Nutrition Support: Vital AF 1.2 at 70ml/hr with 300ml water flush q4h until hypernatremia resolved; then 115ml q4h. When pronin hr proned: Vital AF 1.2 at 20 ml/hr, flush 100 ml q4h for hypernatremia, or per MD; then 50 ml q4h once resolved. 12 hr supine: Vital AF 1.2 at 120 ml/hr, flush 350 ml q4h for hypernatremia, or per MD; then 180 q4h once resolved. Kcal 2,016 Protein (gm) 126 Carbohydrates (gm) 186 Fat (gm) 91 Fluid (mL) 1,362 Goal #1 TF tolerance Goal #2 TF to meet at least 75% energy and pro needs Anticipated Discharge Needs: Unable to determine at this time Follow-Up By: 08/09/20 Additional Comments FU for TF tolerance, Na labs
[2020-08-07] MEDS: ENOXAPARIN 40 MG/0.4 ML INJ SUB-Q SCH (21:58)
[2020-08-07] MEDS: traZODone 50 MG TAB PO SCH (21:58)
[2020-08-08] MEDS: INSULIN LISPRO 100 UNIT/ML VIAL 3 mL SUB-Q SCH ×4 (00:23→17:18)
[2020-08-08] MEDS: fentaNYL DRIP Premix 2,000 MCG/100 ML BAG IV SCH ×4 (02:40→23:16)
[2020-08-08] MEDS: LORazepam 2 MG/ML VIAL IV PRN ×2 (05:35→12:00)
--- NOTE | 2020-08-08 09:37 | Progress Note ---
Assessment and Plan 60 y/o male with chest discomfort, shortness of breath and abnormal CXR, COVID Positive 08/08/20: Prone again today. Same weaning parameters as yesterday. Will order labs for am. Calling now and see if she needs the other the family on the phone to update her. Prognosis still remains very guarded to poor. Asked RT to be as aggressive as possible with weaning FiO2. The unfortunately is not understanding how sick the patient is. I am trying my best to explain to her on a daily basis about this. But she does not accept when I tell her that he has remained stable. 08/07/20: Will prone again today. Wean FiO2 for sats >88% and PaO2 >55. Continue to monitor daily urine function and output. I again today explained the severity of the Mr. Suarez's clinical state as best I could using laymen terms. The other family member on the phone says that the communication has not bee consistent. The patient received Remdesivir while he was on the floor. He did get all 5 doses. I explained to the family that there is no indication for longer therapy or ID would have recommended. I also explained to them that I have extended the steroids to see if this would help beyond the current clinical recommendations. I also explained again that there is no cure for COVID 19 and that all measures are experimental as well as supportive. I also explained why he needs sedation while intubated and especially when proning. I am still not sure that they fully understand the extent of his illness but will continue to s peak with them. Guarded prognosis. 08/06/20: Increase PEEP today to 16. Repeat gas tomorrow morning. Wean FiO2 today for sats >88%. Spoke with RT and PaO2 of 55 and greater are ok. will prone tonight for 12 hours at least. Remains in sinus tach. No labs drawn this am will order for stat this morning including BMP and Mag and Phos, CBC. Spoke with this am to update her. She is upset and asks to do everything for him that we can which I told her we would. I was also very honest about the severity of the disease which made her even more sad. 08/05/20: Did not increase PEEP yesterday. PaO2 improved on own. Will wean FiO2 down today for sats >88%. Hold on proning for now. Continue steroids. Needs better rate control. Most likely sinus tach from hypoxemia, but needs 12 lead if not done yet. Needs labs checked to assess electrolytes. Prognosis remains guarded to poor. Will attempt to reach today, if not today tomorrow. 08/04/20: Will increase PEEP to 16 today. If no improvement in the next 24 hours then will start proning patient tomorrow night. Continue steroids. Overall prognosis remains very guarded. 08/03/20: Chemistry not ordered, ordered today. Follow up blood cultures. Increased PEEP to 14 and RT will attempt to wean FiO2 back down to 50's. Will continue steroids at current dosing for now. He has already completed to original 10 days. Given some improvement, would like to continue. Overall prognosis remains very guarded. 08/02/20: Check blood and urine cultures along with UA. Will check repeat CXR. Repeat Chemistry tomorrow. Hold on abx therapy for right now. Prognosis remains guarded. Continue steroids. Wean FiO2 for sats >88% 08/01/20: Overall prognosis here is very very guarded to poor. Will consider proning patient later today if not able to wean FiO2 any further this afternoon. Per CM, wants to come see patient which is very reasonable. Will continue steroids despite completing 10 days of this. 07/29/20: Supportive measures. Proning and wean as tolerated. 07/28/20: No new recommendations as of right now. When beds become available will move patient down stairs for closer monitoring. 07/27/20: Difficult situation. Patient appears to be not responding to any therapy. Steroids finished yesterday. Given the degree of inflammation will restart steroids for at least another 72-96 hours. In no improvement will stop. Not much else to do medical therapy [place]. Continue to keep patient net negative. Still remains high risk for intubation and if intubated given his current response to steroids, very high mortality. 07/26/20: No new recs for today. Patient really needs to try to prone as much as possible during the day and sleep prone at night. He remains a high risk for cardiac arrest and intubation. 07/25/20: very high risk for cardiac arrest from hypoxemia, but no available beds in ICU. Given COVID status, ideally would not like to use bipap but may have to in the event of continued desats. While proning does better and does not need the mask along with HFNC. Encourage to prone as long as possible. 1. Continue steroids for 10 days. 2. Continue Remdesivir. Not a candidate for Convalescent Plasma 3. Please ask patient prone as tolerated during the day and sleep prone at night. Currently doing and tolerating 4. Agree with daily lasix but will need labs to monitor renal function and electrolytes. Needs labs for today. 5. Guarded prognosis to poor now with increasing oxygen requirement. May require intubation and high risk for cardiac arrest. CCT 31 Subjective Date of service: 08/08/20 Principal diagnosis: Acute respiratory failure with hypoxia, Covid pneumonia Interval history: Proned again last night and PaO2 is 70 this am on 60% however not been weaned yet. BP stable. No labs this am. Still making urine. Objective Vital Signs - 12hr 08/07/20 08/07/20 08/07/20 21:30 21:45 22:00 Temperature Pulse Rate 96 H 97 H 92 H Pulse Rate [ From Monitor] Respiratory 30 H 30 H 30 H Rate Blood Pressure 100/64 110/66 106/65 O2 Sat by Pulse 98 98 Oximetry 08/07/20 08/07/20 08/07/20 22:15 22:30 22:45 Temperature Pulse Rate 94 H 95 H 93 H Pulse Rate [ From Monitor] Respiratory 30 H 29 H 30 H Rate Blood Pressure 107/60 100/63 101/64 O2 Sat by Pulse 98 Oximetry 08/07/20 08/07/20 08/07/20 23:00 23:15 23:20 Temperature Pulse Rate 93 H 92 H 93 H Pulse Rate [ From Monitor] Respiratory 30 H 30 H 30 H Rate Blood Pressure 101/63 101/65 101/65 O2 Sat by Pulse 99 99 99 Oximetry 08/07/20 08/07/20 08/07/20 23:30 23:43 23:45 Temperature 98.5 F Pulse Rate 93 H 93 H Pulse Rate [ From Monitor] Respiratory 30 H 30 H Rate Blood Pressure 104/64 100/63 O2 Sat by Pulse 99 Oximetry 08/08/20 08/08/20 08/08/20 00:00 00:15 00:30 Temperature Pulse Rate 84 91 H 90 Pulse Rate [ 92 H From Monitor] Respiratory 30 H 30 H 30 H Rate Blood Pressure 106/61 104/64 106/61 O2 Sat by Pulse 100 100 Oximetry 08/08/20 08/08/20 08/08/20 00:45 01:00 01:15 Temperature Pulse Rate 80 82 92 H Pulse Rate [ From Monitor] Respiratory 30 H 30 H 30 H Rate Blood Pressure 111/66 102/66 95/58 O2 Sat by Pulse 99 99 99 Oximetry 08/08/20 08/08/20 08/08/20 01:30 01:45 02:00 Temperature Pulse Rate 86 86 83 Pulse Rate [ From Monitor] Respiratory 30 H 30 H 30 H Rate Blood Pressure 97/62 99/60 97/61 O2 Sat by Pulse Oximetry 08/08/20 08/08/20 08/08/20 02:15 02:30 02:45 Temperature Pulse Rate 83 88 81 Pulse Rate [ From Monitor] Respiratory 30 H 30 H 30 H Rate Blood Pressure 101/61 103/60 106/66 O2 Sat by Pulse 100 99 Oximetry 08/08/20 08/08/20 08/08/20 03:00 03:15 03:30 Temperature 97.5 F L Pulse Rate 60 79 92 H Pulse Rate [ From Monitor] Respiratory 21 30 H 32 H Rate Blood Pressure 115/67 134/76 139/75 O2 Sat by Pulse 90 97 96 Oximetry 08/08/20 08/08/20 08/08/20 03:45 04:00 04:15 Temperature Pulse Rate 83 109 H 77 Pulse Rate [ 87 From Monitor] Respiratory 30 H 30 H 30 H Rate Blood Pressure 137/77 146/65 133/70 O2 Sat by Pulse 95 94 94 Oximetry 08/08/20 08/08/20 08/08/20 04:30 04:45 05:00 Temperature Pulse Rate 99 H 98 H 113 H Pulse Rate [ From Monitor] Respiratory 28 H 22 27 H Rate Blood Pressure 132/73 146/68 146/68 O2 Sat by Pulse 94 95 95 Oximetry 08/08/20 08/08/20 08/08/20 05:15 05:30 05:46 Temperature Pulse Rate 120 H 118 H 114 H Pulse Rate [ From Monitor] Respiratory 31 H 33 H 22 Rate Blood Pressure 163/77 163/73 136/64 O2 Sat by Pulse 94 92 93 Oximetry 08/08/20 08/08/20 08/08/20 06:00 06:15 07:49 Temperature Pulse Rate 112 H 105 H 114 H Pulse Rate [ From Monitor] Respiratory 19 16 Rate Blood Pressure 125/71 137/69 117/63 O2 Sat by Pulse 93 92 94 Oximetry Constitutional: other (orally intubated on vent) Eyes: non-icteric ENT: oropharynx moist Neck: supple Ascultation: Bilateral: diminished breath sounds, rhonchi Cardiovascular: regular rate and rhythm, other (tachycardia) Gastrointestinal: normoactive bowel sounds, soft, non-tender, non-distended Integumentary: normal Extremities: no cyanosis Neurologic: normal mental status, non-focal exam CBC and BMP: 08/07/20 04:00 08/07/20 04:00 ABG, PT/INR, D-dimer: ABG ABG pH 7.374 (7.320-7.450) 08/08/20 04:41 POC ABG pCO2 63.1 mmHg (32.0-48.0) H 08/08/20 04:41 POC ABG pO2 70.7 mmHg (83-108) L 08/08/20 04:41 POC ABG HCO3 36.0 08/08/20 04:41 PT/INR, D-dimer PT 13.7 Sec. (12.2-14.9) 07/18/20 04:31 INR 1.06 (0.87-1.13) 07/18/20 04:31 D-Dimer > 61567 ng/mlDDU (0-234) H 07/26/20 10:07 Abnormal lab findings: Abnormal Labs 07/17/20 07/17/20 07/17/20 17:30 17:30 22:48 WBC RBC Hgb Hct MCV MCH MCHC 35 H RDW Plt Count Lymph % (Auto) 10.5 L Lymph # (Auto) 0.7 L Seg Neutrophils % 85.3 H Lymphocytes % (Manual) Seg Neutrophils # Seg Neutrophils # Man Lymphocytes # (Manual) D-Dimer 314.21 H POC ABG pCO2 POC ABG pO2 ABG Hemoglobin ABG Oxyhemoglobin ABG Sodium ABG Potassium ABG Chloride ABG Glucose Sodium Chloride Carbon Dioxide BUN 1 L Creatinine Glucose 154 H POC Glucose Calcium Magnesium Ferritin Alkaline Phosphatase Lactate Dehydrogenase Total Creatine Kinase CK-MB (CK-2) C-Reactive Protein Total Protein Albumin Triglycerides Arterial Blood Glucose Arterial Blood Ionized Calcium Coronavirus (PCR) SARS-CoV-2 IgG Ab 12/27/20 12/27/20 12/28/20 22:48 22:48 04:31 WBC RBC Hgb Hct MCV MCH 33 H MCHC 35 H RDW 13.1 L Plt Count Lymph % (Auto) Lymph # (Auto) Seg Neutrophils % Lymphocytes % (Manual) 5.0 L Seg Neutrophils # Seg Neutrophils # Man 8.1 H Lymphocytes # (Manual) 0.4 L D-Dimer POC ABG pCO2 POC ABG pO2 ABG Hemoglobin ABG Oxyhemoglobin ABG Sodium ABG Potassium ABG Chloride ABG Glucose Sodium Chloride Carbon Dioxide BUN Creatinine Glucose 124 H POC Glucose Calcium Magnesium Ferritin 889.3 H Alkaline Phosphatase Lactate Dehydrogenase 832 H Total Creatine Kinase CK-MB (CK-2) C-Reactive Protein 17.70 H Total Protein Albumin Triglycerides Arterial Blood Glucose Arterial Blood Ionized Calcium Coronavirus (PCR) SARS-CoV-2 IgG Ab 07/18/20 07/18/20 07/18/20 04:31 08:50 18:48 WBC RBC Hgb Hct MCV MCH MCHC RDW Plt Count Lymph % (Auto) Lymph # (Auto) Seg Neutrophils % Lymphocytes % (Manual) Seg Neutrophils # Seg Neutrophils # Man Lymphocytes # (Manual) D-Dimer 275.27 H POC ABG pCO2 POC ABG pO2 ABG Hemoglobin ABG Oxyhemoglobin ABG Sodium ABG Potassium ABG Chloride ABG Glucose Sodium Chloride Carbon Dioxide 31 H D BUN 23 H Creatinine Glucose 143 H POC Glucose Calcium Magnesium Ferritin Alkaline Phosphatase Lactate Dehydrogenase Total Creatine Kinase CK-MB (CK-2) C-Reactive Protein Total Protein Albumin Triglycerides Arterial Blood Glucose Arterial Blood Ionized Calcium Coronavirus (PCR) Positive A SARS-CoV-2 IgG Ab 07/18/20 07/18/20 07/20/20 18:48 18:48 08:56 WBC RBC Hgb Hct MCV MCH MCHC RDW Plt Count Lymph % (Auto) Lymph # (Auto) Seg Neutrophils % Lymphocytes % (Manual) Seg Neutrophils # Seg Neutrophils # Man Lymphocytes # (Manual) D-Dimer POC ABG pCO2 POC ABG pO2 ABG Hemoglobin ABG Oxyhemoglobin ABG Sodium ABG Potassium ABG Chloride ABG Glucose Sodium Chloride Carbon Dioxide BUN 22 H Creatinine Glucose 219 H POC Glucose Calcium Magnesium Ferritin 1164.0 H Alkaline Phosphatase Lactate Dehydrogenase 560 H 739 H Total Creatine Kinase CK-MB (CK-2) C-Reactive Protein 18.00 H 17.50 H Total Protein Albumin 3.0 L Triglycerides Arterial Blood Glucose Arterial Blood Ionized Calcium Coronavirus (PCR) SARS-CoV-2 IgG Ab 07/20/20 07/20/20 07/21/20 08:56 08:56 05:24 WBC RBC Hgb Hct MCV MCH MCHC RDW Plt Count Lymph % (Auto) Lymph # (Auto) Seg Neutrophils % Lymphocytes % (Manual) Seg Neutrophils # Seg Neutrophils # Man Lymphocytes # (Manual) D-Dimer 9523.70 H POC ABG pCO2 POC ABG pO2 ABG Hemoglobin ABG Oxyhemoglobin ABG Sodium ABG Potassium ABG Chloride ABG Glucose Sodium Chloride Carbon Dioxide BUN Creatinine Glucose POC Glucose Calcium Magnesium Ferritin 1581.0 H Alkaline Phosphatase Lactate Dehydrogenase Total Creatine Kinase CK-MB (CK-2) C-Reactive Protein Total Protein Albumin Triglycerides Arterial Blood Glucose Arterial Blood Ionized Calcium Coronavirus (PCR) SARS-CoV-2 IgG Ab Reactive A 07/22/20 07/24/20 07/26/20 04:31 13:26 10:07 WBC RBC Hgb Hct MCV MCH MCHC RDW Plt Count Lymph % (Auto) Lymph # (Auto) Seg Neutrophils % Lymphocytes % (Manual) Seg Neutrophils # Seg Neutrophils # Man Lymphocytes # (Manual) D-Dimer > 50075 H POC ABG pCO2 POC ABG pO2 ABG Hemoglobin ABG Oxyhemoglobin ABG Sodium ABG Potassium ABG Chloride ABG Glucose Sodium 146 H Chloride Carbon Dioxide 32 H BUN 28 H 26 H Creatinine Glucose 144 H 116 H POC Glucose Calcium 8.3 L Magnesium Ferritin Alkaline Phosphatase Lactate Dehydrogenase Total Creatine Kinase CK-MB (CK-2) C-Reactive Protein Total Protein Albumin 3.3 L Triglycerides Arterial Blood Glucose Arterial Blood Ionized Calcium Coronavirus (PCR) SARS-CoV-2 IgG Ab 07/26/20 07/26/20 07/27/20 10:07 10:07 19:45 WBC RBC Hgb Hct MCV MCH MCHC RDW Plt Count Lymph % (Auto) Lymph # (Auto) Seg Neutrophils % Lymphocytes % (Manual) Seg Neutrophils # Seg Neutrophils # Man Lymphocytes # (Manual) D-Dimer POC ABG pCO2 POC ABG pO2 ABG Hemoglobin ABG Oxyhemoglobin ABG Sodium ABG Potassium ABG Chloride ABG Glucose Sodium Chloride 97.4 L Carbon Dioxide 33 H BUN 27 H Creatinine Glucose 175 H POC Glucose Calcium Magnesium Ferritin 1079.0 H Alkaline Phosphatase Lactate Dehydrogenase 708 H Total Creatine Kinase CK-MB (CK-2) C-Reactive Protein 6.10 H Total Protein Albumin Triglycerides Arterial Blood Glucose Arterial Blood Ionized Calcium Coronavirus (PCR) SARS-CoV-2 IgG Ab 07/29/20 07/30/20 07/30/20 02:09 10:33 11:54 WBC RBC Hgb Hct MCV MCH MCHC RDW Plt Count Lymph % (Auto) Lymph # (Auto) Seg Neutrophils % Lymphocytes % (Manual) Seg Neutrophils # Seg Neutrophils # Man Lymphocytes # (Manual) D-Dimer POC ABG pCO2 POC ABG pO2 ABG Hemoglobin ABG Oxyhemoglobin ABG Sodium ABG Potassium ABG Chloride ABG Glucose Sodium Chloride Carbon Dioxide BUN Creatinine Glucose POC Glucose 183 H Calcium Magnesium 3.00 H Ferritin Alkaline Phosphatase Lactate Dehydrogenase Total Creatine Kinase 174 H CK-MB (CK-2) 4.5 H C-Reactive Protein Total Protein Albumin Triglycerides Arterial Blood Glucose Arterial Blood Ionized Calcium Coronavirus (PCR) SARS-CoV-2 IgG Ab 07/30/20 07/30/20 07/31/20 17:30 23:08 11:04 WBC RBC Hgb Hct MCV MCH MCHC RDW Plt Count Lymph % (Auto) Lymph # (Auto) Seg Neutrophils % Lymphocytes % (Manual) Seg Neutrophils # Seg Neutrophils # Man Lymphocytes # (Manual) D-Dimer POC ABG pCO2 POC ABG pO2 ABG Hemoglobin ABG Oxyhemoglobin ABG Sodium ABG Potassium ABG Chloride ABG Glucose Sodium 151 H D Chloride 109.2 H Carbon Dioxide 32 H BUN 48 H Creatinine Glucose 165 H POC Glucose 199 H 194 H Calcium Magnesium Ferritin Alkaline Phosphatase 168 H Lactate Dehydrogenase Total Creatine Kinase CK-MB (CK-2) C-Reactive Protein Total Protein Albumin 3.1 L Triglycerides Arterial Blood Glucose Arterial Blood Ionized Calcium Coronavirus (PCR) SARS-CoV-2 IgG Ab 07/31/20 07/31/20 07/31/20 11:18 11:23 17:47 WBC RBC Hgb Hct MCV MCH MCHC RDW Plt Count Lymph % (Auto) Lymph # (Auto) Seg Neutrophils % Lymphocytes % (Manual) Seg Neutrophils # Seg Neutrophils # Man Lymphocytes # (Manual) D-Dimer POC ABG pCO2 56.6 H POC ABG pO2 73.1 L ABG Hemoglobin ABG Oxyhemoglobin 92.1 L ABG Sodium ABG Potassium ABG Chloride 108.0 H ABG Glucose 169 H Sodium Chloride Carbon Dioxide BUN Creatinine Glucose POC Glucose 156 H 169 H Calcium Magnesium Ferritin Alkaline Phosphatase Lactate Dehydrogenase Total Creatine Kinase CK-MB (CK-2) C-Reactive Protein Total Protein Albumin Triglycerides Arterial Blood Glucose 169 H Arterial Blood Ionized Calcium Coronavirus (PCR) SARS-CoV-2 IgG Ab 07/31/20 07/31/20 07/31/20 20:58 23:18 23:55 WBC 19.8 H RBC Hgb Hct MCV 95 H MCH MCHC RDW 13.0 L Plt Count Lymph % (Auto) Lymph # (Auto) Seg Neutrophils % Lymphocytes % (Manual) Seg Neutrophils # Seg Neutrophils # Man Lymphocytes # (Manual) D-Dimer POC ABG pCO2 POC ABG pO2 ABG Hemoglobin ABG Oxyhemoglobin ABG Sodium ABG Potassium ABG Chloride ABG Glucose Sodium Chloride Carbon Dioxide BUN Creatinine Glucose POC Glucose 293 H 211 H Calcium Magnesium Ferritin Alkaline Phosphatase Lactate Dehydrogenase Total Creatine Kinase CK-MB (CK-2) C-Reactive Protein Total Protein Albumin Triglycerides Arterial Blood Glucose Arterial Blood Ionized Calcium Coronavirus (PCR) SARS-CoV-2 IgG Ab 08/01/20 08/01/20 08/01/20 03:47 08:30 12:27 WBC RBC Hgb Hct MCV MCH MCHC RDW Plt Count Lymph % (Auto) Lymph # (Auto) Seg Neutrophils % Lymphocytes % (Manual) Seg Neutrophils # Seg Neutrophils # Man Lymphocytes # (Manual) D-Dimer POC ABG pCO2 49.8 H POC ABG pO2 123.4 H ABG Hemoglobin ABG Oxyhemoglobin ABG Sodium ABG Potassium 4.6 H ABG Chloride 111.0 H ABG Glucose 130 H Sodium 154 H Chloride 115.1 H Carbon Dioxide 32 H BUN 49 H Creatinine Glucose 492 H POC Glucose 161 H Calcium 7.2 L D Magnesium Ferritin Alkaline Phosphatase Lactate Dehydrogenase Total Creatine Kinase CK-MB (CK-2) C-Reactive Protein Total Protein Albumin Triglycerides Arterial Blood Glucose 130 H Arterial Blood Ionized Calcium 4.5 L Coronavirus (PCR) SARS-CoV-2 IgG Ab 08/01/20 08/01/20 08/02/20 16:55 23:06 05:00 WBC RBC Hgb Hct MCV MCH MCHC RDW Plt Count Lymph % (Auto) Lymph # (Auto) Seg Neutrophils % Lymphocytes % (Manual) Seg Neutrophils # Seg Neutrophils # Man Lymphocytes # (Manual) D-Dimer POC ABG pCO2 52.5 H POC ABG pO2 69.8 L ABG Hemoglobin ABG Oxyhemoglobin ABG Sodium 147.2 H ABG Potassium ABG Chloride 110.0 H ABG Glucose 177 H Sodium Chloride Carbon Dioxide BUN Creatinine Glucose POC Glucose 195 H 162 H Calcium Magnesium Ferritin Alkaline Phosphatase Lactate Dehydrogenase Total Creatine Kinase CK-MB (CK-2) C-Reactive Protein Total Protein Albumin Triglycerides Arterial Blood Glucose 177 H Arterial Blood Ionized Calcium Coronavirus (PCR) SARS-CoV-2 IgG Ab 08/02/20 08/02/20 08/02/20 05:01 12:05 17:13 WBC RBC Hgb Hct MCV MCH MCHC RDW Plt Count Lymph % (Auto) Lymph # (Auto) Seg Neutrophils % Lymphocytes % (Manual) Seg Neutrophils # Seg Neutrophils # Man Lymphocytes # (Manual) D-Dimer POC ABG pCO2 POC ABG pO2 ABG Hemoglobin ABG Oxyhemoglobin ABG Sodium ABG Potassium ABG Chloride ABG Glucose Sodium Chloride Carbon Dioxide BUN Creatinine Glucose POC Glucose 146 H 166 H 209 H Calcium Magnesium Ferritin Alkaline Phosphatase Lactate Dehydrogenase Total Creatine Kinase CK-MB (CK-2) C-Reactive Protein Total Protein Albumin Triglycerides Arterial Blood Glucose Arterial Blood Ionized Calcium Coronavirus (PCR) SARS-CoV-2 IgG Ab 08/02/20 08/03/20 08/03/20 23:26 04:06 04:34 WBC RBC Hgb Hct MCV MCH MCHC RDW Plt Count Lymph % (Auto) Lymph # (Auto) Seg Neutrophils % Lymphocytes % (Manual) Seg Neutrophils # Seg Neutrophils # Man Lymphocytes # (Manual) D-Dimer POC ABG pCO2 55.6 H POC ABG pO2 66.1 L ABG Hemoglobin 11.9 L ABG Oxyhemoglobin 91.1 L ABG Sodium 145.7 H ABG Potassium 4.8 H ABG Chloride 111.0 H ABG Glucose 195 H Sodium Chloride Carbon Dioxide BUN Creatinine Glucose POC Glucose 157 H Calcium Magnesium Ferritin Alkaline Phosphatase Lactate Dehydrogenase Total Creatine Kinase CK-MB (CK-2) C-Reactive Protein Total Protein Albumin Triglycerides 207 H Arterial Blood Glucose 195 H Arterial Blood Ionized Calcium Coronavirus (PCR) SARS-CoV-2 IgG Ab 08/03/20 08/03/20 08/03/20 05:00 11:55 17:15 WBC RBC Hgb Hct MCV MCH MCHC RDW Plt Count Lymph % (Auto) Lymph # (Auto) Seg Neutrophils % Lymphocytes % (Manual) Seg Neutrophils # Seg Neutrophils # Man Lymphocytes # (Manual) D-Dimer POC ABG pCO2 POC ABG pO2 ABG Hemoglobin ABG Oxyhemoglobin ABG Sodium ABG Potassium ABG Chloride ABG Glucose Sodium Chloride Carbon Dioxide BUN Creatinine Glucose POC Glucose 179 H 173 H 217 H Calcium Magnesium Ferritin Alkaline Phosphatase Lactate Dehydrogenase Total Creatine Kinase CK-MB (CK-2) C-Reactive Protein Total Protein Albumin Triglycerides Arterial Blood Glucose Arterial Blood Ionized Calcium Coronavirus (PCR) SARS-CoV-2 IgG Ab 08/03/20 08/04/20 08/04/20 23:01 03:59 05:30 WBC RBC Hgb Hct MCV MCH MCHC RDW Plt Count Lymph % (Auto) Lymph # (Auto) Seg Neutrophils % Lymphocytes % (Manual) Seg Neutrophils # Seg Neutrophils # Man Lymphocytes # (Manual) D-Dimer POC ABG pCO2 54.6 H POC ABG pO2 66.2 L ABG Hemoglobin 10.8 L ABG Oxyhemoglobin 91.5 L ABG Sodium ABG Potassium ABG Chloride 110.0 H ABG Glucose 201 H Sodium Chloride Carbon Dioxide BUN Creatinine Glucose POC Glucose 222 H 137 H Calcium Magnesium Ferritin Alkaline Phosphatase Lactate Dehydrogenase Total Creatine Kinase CK-MB (CK-2) C-Reactive Protein Total Protein Albumin Triglycerides Arterial Blood Glucose 201 H Arterial Blood Ionized Calcium Coronavirus (PCR) SARS-CoV-2 IgG Ab 08/04/20 08/04/20 08/04/20 06:57 11:50 17:29 WBC RBC Hgb Hct MCV MCH MCHC RDW Plt Count Lymph % (Auto) Lymph # (Auto) Seg Neutrophils % Lymphocytes % (Manual) Seg Neutrophils # Seg Neutrophils # Man Lymphocytes # (Manual) D-Dimer POC ABG pCO2 POC ABG pO2 ABG Hemoglobin ABG Oxyhemoglobin ABG Sodium ABG Potassium ABG Chloride ABG Glucose Sodium 151 H Chloride 111.3 H Carbon Dioxide 36 H BUN 32 H Creatinine Glucose 160 H POC Glucose 158 H 180 H Calcium 8.2 L Magnesium 2.60 H Ferritin Alkaline Phosphatase Lactate Dehydrogenase Total Creatine Kinase CK-MB (CK-2) C-Reactive Protein Total Protein Albumin Triglycerides Arterial Blood Glucose Arterial Blood Ionized Calcium Coronavirus (PCR) SARS-CoV-2 IgG Ab 08/04/20 08/05/20 08/05/20 23:01 04:49 05:11 WBC RBC Hgb Hct MCV MCH MCHC RDW Plt Count Lymph % (Auto) Lymph # (Auto) Seg Neutrophils % Lymphocytes % (Manual) Seg Neutrophils # Seg Neutrophils # Man Lymphocytes # (Manual) D-Dimer POC ABG pCO2 56.7 H POC ABG pO2 80.6 L ABG Hemoglobin 10.9 L ABG Oxyhemoglobin ABG Sodium 145.9 H ABG Potassium ABG Chloride 109.0 H ABG Glucose 160 H Sodium Chloride Carbon Dioxide BUN Creatinine Glucose POC Glucose 160 H 134 H Calcium Magnesium Ferritin Alkaline Phosphatase Lactate Dehydrogenase Total Creatine Kinase CK-MB (CK-2) C-Reactive Protein Total Protein Albumin Triglycerides Arterial Blood Glucose 160 H Arterial Blood Ionized Calcium Coronavirus (PCR) SARS-CoV-2 IgG Ab 08/05/20 08/05/20 08/05/20 11:40 16:54 23:29 WBC RBC Hgb Hct MCV MCH MCHC RDW Plt Count Lymph % (Auto) Lymph # (Auto) Seg Neutrophils % Lymphocytes % (Manual) Seg Neutrophils # Seg Neutrophils # Man Lymphocytes # (Manual) D-Dimer POC ABG pCO2 POC ABG pO2 ABG Hemoglobin ABG Oxyhemoglobin ABG Sodium ABG Potassium ABG Chloride ABG Glucose Sodium Chloride Carbon Dioxide BUN Creatinine Glucose POC Glucose 137 H 243 H 154 H Calcium Magnesium Ferritin Alkaline Phosphatase Lactate Dehydrogenase Total Creatine Kinase CK-MB (CK-2) C-Reactive Protein Total Protein Albumin Triglycerides Arterial Blood Glucose Arterial Blood Ionized Calcium Coronavirus (PCR) SARS-CoV-2 IgG Ab 08/06/20 08/06/20 08/06/20 05:24 06:00 08:59 WBC 14.1 H RBC Hgb 11.5 L Hct MCV 98 H MCH MCHC RDW Plt Count 107 L Lymph % (Auto) Lymph # (Auto) Seg Neutrophils % Lymphocytes % (Manual) Seg Neutrophils # Seg Neutrophils # Man Lymphocytes # (Manual) D-Dimer POC ABG pCO2 58.9 H POC ABG pO2 53.0 L ABG Hemoglobin ABG Oxyhemoglobin 85.7 L ABG Sodium 148.4 H ABG Potassium 4.7 H ABG Chloride 109.0 H ABG Glucose 125 H Sodium Chloride Carbon Dioxide BUN Creatinine Glucose POC Glucose 122 H Calcium Magnesium Ferritin Alkaline Phosphatase Lactate Dehydrogenase Total Creatine Kinase CK-MB (CK-2) C-Reactive Protein Total Protein Albumin Triglycerides Arterial Blood Glucose 125 H Arterial Blood Ionized Calcium Coronavirus (PCR) SARS-CoV-2 IgG Ab 08/06/20 08/06/20 08/06/20 08:59 12:34 17:43 WBC RBC Hgb Hct MCV MCH MCHC RDW Plt Count Lymph % (Auto) Lymph # (Auto) Seg Neutrophils % Lymphocytes % (Manual) Seg Neutrophils # Seg Neutrophils # Man Lymphocytes # (Manual) D-Dimer POC ABG pCO2 POC ABG pO2 ABG Hemoglobin ABG Oxyhemoglobin ABG Sodium ABG Potassium ABG Chloride ABG Glucose Sodium 151 H Chloride 110.7 H Carbon Dioxide 36 H BUN 29 H Creatinine 0.7 L Glucose 194 H POC Glucose 193 H 204 H Calcium Magnesium Ferritin Alkaline Phosphatase Lactate Dehydrogenase Total Creatine Kinase CK-MB (CK-2) C-Reactive Protein Total Protein Albumin Triglycerides Arterial Blood Glucose Arterial Blood Ionized Calcium Coronavirus (PCR) SARS-CoV-2 IgG Ab 08/06/20 08/07/20 08/07/20 23:25 04:00 04:00 WBC RBC 3.59 L Hgb 11.3 L Hct 35.0 L MCV 97 H MCH MCHC RDW Plt Count 103 L Lymph % (Auto) 11.5 L Lymph # (Auto) Seg Neutrophils % 82.9 H Lymphocytes % (Manual) Seg Neutrophils # 9.0 H Seg Neutrophils # Man Lymphocytes # (Manual) D-Dimer POC ABG pCO2 POC ABG pO2 ABG Hemoglobin ABG Oxyhemoglobin ABG Sodium ABG Potassium ABG Chloride ABG Glucose Sodium 151 H Chloride 109.6 H Carbon Dioxide 34 H BUN 29 H Creatinine 0.5 L Glucose 134 H POC Glucose 150 H Calcium Magnesium Ferritin Alkaline Phosphatase Lactate Dehydrogenase Total Creatine Kinase CK-MB (CK-2) C-Reactive Protein Total Protein 5.4 L Albumin 2.8 L Triglycerides Arterial Blood Glucose Arterial Blood Ionized Calcium Coronavirus (PCR) SARS-CoV-2 IgG Ab 08/07/20 08/07/20 08/07/20 04:00 04:55 05:16 WBC RBC Hgb Hct MCV MCH MCHC RDW Plt Count Lymph % (Auto) Lymph # (Auto) Seg Neutrophils % Lymphocytes % (Manual) Seg Neutrophils # Seg Neutrophils # Man Lymphocytes # (Manual) D-Dimer POC ABG pCO2 62.8 H POC ABG pO2 75.0 L ABG Hemoglobin 11.9 L ABG Oxyhemoglobin 93.2 L ABG Sodium 148.2 H ABG Potassium ABG Chloride 108.0 H ABG Glucose 150 H Sodium Chloride Carbon Dioxide BUN Creatinine Glucose POC Glucose 116 H Calcium Magnesium Ferritin Alkaline Phosphatase Lactate Dehydrogenase Total Creatine Kinase CK-MB (CK-2) C-Reactive Protein Total Protein Albumin Triglycerides 250 H Arterial Blood Glucose 150 H Arterial Blood Ionized Calcium Coronavirus (PCR) SARS-CoV-2 IgG Ab 08/07/20 08/07/20 08/07/20 12:36 17:46 23:09 WBC RBC Hgb Hct MCV MCH MCHC RDW Plt Count Lymph % (Auto) Lymph # (Auto) Seg Neutrophils % Lymphocytes % (Manual) Seg Neutrophils # Seg Neutrophils # Man Lymphocytes # (Manual) D-Dimer POC ABG pCO2 POC ABG pO2 ABG Hemoglobin ABG Oxyhemoglobin ABG Sodium ABG Potassium ABG Chloride ABG Glucose Sodium Chloride Carbon Dioxide BUN Creatinine Glucose POC Glucose 160 H 168 H 111 H Calcium Magnesium Ferritin Alkaline Phosphatase Lactate Dehydrogenase Total Creatine Kinase CK-MB (CK-2) C-Reactive Protein Total Protein Albumin Triglycerides Arterial Blood Glucose Arterial Blood Ionized Calcium Coronavirus (PCR) SARS-CoV-2 IgG Ab 08/08/20 08/08/20 04:41 05:13 WBC RBC Hgb Hct MCV MCH MCHC RDW Plt Count Lymph % (Auto) Lymph # (Auto) Seg Neutrophils % Lymphocytes % (Manual) Seg Neutrophils # Seg Neutrophils # Man Lymphocytes # (Manual) D-Dimer POC ABG pCO2 63.1 H POC ABG pO2 70.7 L ABG Hemoglobin 11.5 L ABG Oxyhemoglobin 91.0 L ABG Sodium 148.5 H ABG Potassium ABG Chloride 108.0 H ABG Glucose 102 H Sodium Chloride Carbon Dioxide BUN Creatinine Glucose POC Glucose 122 H Calcium Magnesium Ferritin Alkaline Phosphatase Lactate Dehydrogenase Total Creatine Kinase CK-MB (CK-2) C-Reactive Protein Total Protein Albumin Triglycerides Arterial Blood Glucose 102 H Arterial Blood Ionized Calcium Coronavirus (PCR) SARS-CoV-2 IgG Ab
[2020-08-08] MEDS: dexAMETHasone 4 MG/ML VIAL IV SCH (09:40)
[2020-08-08] MEDS: SENNOSIDES/DOCUSATE SODIUM 8.6/50 MG TAB PO SCH ×2 (09:40→21:00)
[2020-08-08] MEDS: FAMOTIDINE 20 MG TAB PO SCH ×2 (09:41→21:00)
--- NOTE | 2020-08-08 11:07 | Event Note ---
Date: 08/08/20 Received a call from the patient's sister in law (patients 's sister). She states that the feels that I have given up on her because of the way I explain the clinical scenario to her. She states that I lack compassion and that I always provide negative information. I explained to the sister in law, that I am sorry that her sister feels this way but I can only tell her the facts about what is going on with her . The continues to ask me about having hope for her . I have explained to her that as a medical professional, I cannot speak in terms of hope but I can only update her on the facts that are occurring. I have never told her to not have hope nor have I told her that anyone was giving up. The sister in law then asked me to only give updates and not speak about anything else. I explained to the sister in law that this is what I have been doing but her sister (patient's ) then asks questions about prognosis and current level of severity so I answer them. I explained to the sister in law, that she is was asking me to not answer the 's question and as a part of her care team I could not do as that would essentially be lying to her. The sister in law then told me that I do not understand their culture and she stated that I was being to blunt with her sister. I then expressed my apologies and I told the sister in law that it sounds like I should not speak with the anymore and I will defer all updates to other care members on her team. I will rely my medical opinion through the chart and with direct contact with the other physicians involved in his care.
--- NOTE | 2020-08-08 16:00 | Progress Note ---
Assessment and Plan Assessment and plan: 60 YO Male HD #23 with acute hypoxemic respiratory failure, bilateral pneumonia secondary to coronavirus infection, cough who is currently intubated and on ventilatory support. Patient has poor prognosis. Patient currently unable to be weaned from ventilatory support. Patient has poor prognosis. No acute decompensation overnight. Closely monitor the patient and adjust management as needed Follow CTA chest, and inflammatory markers Consults recommendations noted and appreciated Plan of care reviewed with the patient and his nurse 07/20; patient is severely hypoxemic, on high flow oxygen 40 L/100%/O2 sats 95 Elevated D-dimers, patient is severely hypoxemic, will check CTA chest to rule out PE Also consider lower extremity venous Doppler to rule out DVT 07/21: Patient remains on high flow oxygen however mild improvement from 40 L to 35 l Tolerating prone position, continue steroids remdesivir CTA chest negative for PE, lower extremity venous Doppler negative for DVT Consults recommendations noted and appreciated Poor prognosis, patient is aware 07/22/2020; patient feels slightly better remains on high flow oxygen however lower than yesterday 35 L/95% /O2 sat 94% 07/21/2020 advised the patient to rest in prone position as tolerated Home oxygen evaluation 07/23/2020; remains on high flow oxygen, continue steroids remdesivir, prone position and comfort care Patient is critically ill with very poor prognosis and prolonged hypoxemia on high flow oxygen Plan of care reviewed with the patient and his nurse 07/24/2020; patient was severely hypoxemic rapid response called oxygen settings adjusted patient is currently better, requiring high flow oxygen right from the day he was admitted, poor prognosis, discussed with patient's 07/25/2020; patient remains on high flow oxygen in mild distress, overall prognosis poor I discussed with , and family friend physician extensively yesterday Poor prognosis continue current management 07/26/2020; patient remains on high flow oxygen 40 L/100%/95% O2 sat +100% nonrebreather Patient is critically ill, poor prognosis, ID pulmonary following 07/27/2020; patient remains on high flow oxygen 40 L/100%/[address] 100% nonrebreather Very poor prognosis, patient and family aware Pulmonary recommendations noted and appreciated 07/28/2020; patient remains critically ill, remains dependent on high flow oxygen 40 L +100% nonrebreather Very poor prognosis. 07/29/2020 Remains critically ill On high flow oxygen 07/30/2020 On high flow oxygen Is critically ill 07/31/2020 On high flow oxygen Critically ill 08/01/2020 on high flow oxygen Critically ill 08/02/2020 On Vent Weaning in progress 08/03/20 On Vent Weaning in progress 08/04/20 On vent Weaning in progress 08/05/20 Did not increase PEEP yesterday. PaO2 improved on own. Will wean FiO2 down today for sats >88%. Hold on proning for now. Continue steroids. Needs better rate control. Most likely sinus tach from hypoxemia, 08/08: Patient remains on full ventilatory support, critically ill, Proninng per Fishing Captain. Down to 60% oxygen FIO2. PEEP Lasix 20mg IV x 1 today, Consider changing to full dose anticoagulation. Discussed with Fishing Captain. Check Osmolality. Monitor Plt considering Lovenox Spoke with extensively and sister. --Acute hypoxc respiratory failure on Vent Current Visit: Yes Status: Acute Plan to address problem: Weaning in progress -- Hypernatremia increase water intake --COVID-19 positive Continue contact and droplet isolation, --Elevated D-dimers; CTA chest negative for PE, mild pulmonary edema, -- Pneumonia Current Visit: Yes Status: Acute Plan to address problem: Off antibiotics --Severe protein calorie Malnutrition Mailroom Associate consult -- Throbocytopenia -- Acute Metabolic Encephalopathy ---DVT prophylaxis Current Visit: Yes Status: Acute Plan to address problem: Patient placed on subcutaneous Lovenox. -- Full code status Current Visit: Yes Status: Acute Plan to address problem: Patient is a full code. Advance care planning Current Visit: Yes Status: Acute Plan to address problem: Disease education conducted, patient is full code, patient has poor prognosis. Prognosis discussed. +30 minutes. The high probability of a clinically significant, sudden or life threatening deterioration of the [cardiac, pulmonary, neuro] system(s) required my full and direct attention, intervention and personal management. The aggregate critical care time was [45] minutes. This time is in addition to time spent performing reported procedures but includes the following: [x] Data Review and interpretation [x] Patient assessment and monitoring of vital signs [x] Documentation [x] Medication orders and management History Interval history: Patient seen and examined, unfortunately no improvement, prognosis remains poor Hospitalist Physical - Physical exam Narrative exam: General appearance: Present:on full ventilatory support - EENT Eyes: Present: miosis ENT: Not following commands - Neck Neck: Present: supple - Respiratory Respiratory effort: labored Respiratory: bilateral: diminished, rhonchi - Cardiovascular Rhythm: regular Heart Sounds: Present: S1 & S2 - Extremities Extremities: no ischemia Peripheral Pulses: within normal limits - Abdominal General gastrointestinal: soft, non-tender, non-distended - Integumentary Integumentary: Present: dry - Psychiatric Psychiatric: no appropriate mood/affect, no intact judgment & insight, no memory intact - Neurologic Neurologic: CNII-XII intact, no gait normal - Constitutional Vitals: Temp Pulse Resp BP Pulse Ox 97.5 F L 129 H 30 H 138/72 92 08/08/20 03:30 08/08/20 14:28 08/08/20 13:30 08/08/20 14:28 08/08/20 14:28 General appearance: Present: no acute distress, well-nourished HEART Score - HEART Score Troponin: Troponin T 0.018 ng/mL (0.00-0.029) 07/30/20 10:33 Results - Labs CBC & Chem 7: 08/07/20 04:00 08/07/20 04:00 Labs: Laboratory Last Values WBC 10.9 K/mm3 (4.5-11.0) 08/07/20 04:00 RBC 3.59 M/mm3 (3.65-5.03) L 08/07/20 04:00 Hgb 11.3 gm/dl (11.8-15.2) L 08/07/20 04:00 Hct 35.0 % (35.5-45.6) L 08/07/20 04:00 MCV 97 fl (84-94) H 08/07/20 04:00 MCH 32 pg (28-32) 08/07/20 04:00 MCHC 32 % (32-34) 08/07/20 04:00 RDW 13.5 % (13.2-15.2) 08/07/20 04:00 Plt Count 103 K/mm3 (140-440) L 08/07/20 04:00 Lymph % (Auto) 11.5 % (13.4-35.0) L 08/07/20 04:00 [place] % (Auto) 3.2 % (0.0-7.3) 08/07/20 04:00 Eos % (Auto) 2.1 % (0.0-4.3) 08/07/20 04:00 Baso % (Auto) 0.3 % (0.0-1.8) 08/07/20 04:00 Lymph # (Auto) 1.3 K/mm3 (1.2-5.4) 08/07/20 04:00 [place] # (Auto) 0.3 K/mm3 (0.0-0.8) 08/07/20 04:00 Eos # (Auto) 0.2 K/mm3 (0.0-0.4) 08/07/20 04:00 Baso # (Auto) 0.0 K/mm3 (0.0-0.1) 08/07/20 04:00 Add Manual Diff Complete 07/18/20 04:31 Total Counted 100 07/18/20 04:31 Seg Neutrophils % 82.9 % (40.0-70.0) H 08/07/20 04:00 Lymphocytes % (Manual) 5.0 % (13.4-35.0) L 07/18/20 04:31 Monocytes % (Manual) 3.0 % (0.0-7.3) 07/18/20 04:31 Nucleated RBC % Not Reportable 07/18/20 04:31 Seg Neutrophils # 9.0 K/mm3 (1.8-7.7) H 08/07/20 04:00 Seg Neutrophils # Man 8.1 K/mm3 (1.8-7.7) H 07/18/20 04:31 Band Neutrophils # 0.0 K/mm3 07/18/20 04:31 Lymphocytes # (Manual) 0.4 K/mm3 (1.2-5.4) L 07/18/20 04:31 Abs React Lymphs (Man) 0.0 K/mm3 07/18/20 04:31 Monocytes # (Manual) 0.3 K/mm3 (0.0-0.8) 07/18/20 04:31 Eosinophils # (Manual) 0.0 K/mm3 (0.0-0.4) 07/18/20 04:31 Basophils # (Manual) 0.0 K/mm3 (0.0-0.1) 07/18/20 04:31 Metamyelocytes # 0.0 K/mm3 07/18/20 04:31 Myelocytes # 0.0 K/mm3 07/18/20 04:31 Promyelocytes # 0.0 K/mm3 07/18/20 04:31 Blast Cells # 0.0 K/mm3 07/18/20 04:31 WBC Morphology Not Reportable 07/18/20 04:31 Hypersegmented Neuts Not Reportable 07/18/20 04:31 Hyposegmented Neuts Not Reportable 07/18/20 04:31 Hypogranular Neuts Not Reportable 07/18/20 04:31 Smudge Cells Not Reportable 07/18/20 04:31 Toxic Granulation Not Reportable 07/18/20 04:31 Toxic Vacuolation Not Reportable 07/18/20 04:31 Dohle Bodies Not Reportable 07/18/20 04:31 Pelger-Huet Anomaly Not Reportable 07/18/20 04:31 Cheri Rods Not Reportable 07/18/20 04:31 Platelet Estimate Consistent w auto 07/18/20 04:31 Clumped Platelets Not Reportable 07/18/20 04:31 Plt Clumps, EDTA Not Reportable 07/18/20 04:31 Large Platelets Not Reportable 07/18/20 04:31 Giant Platelets Not Reportable 07/18/20 04:31 Platelet Satelliting Not Reportable 07/18/20 04:31 Plt Morphology Comment Not Reportable 07/18/20 04:31 RBC Morphology Not Reportable 07/18/20 04:31 Dimorphic RBCs Not Reportable 07/18/20 04:31 Polychromasia Not Reportable 07/18/20 04:31 Hypochromasia Not Reportable 07/18/20 04:31 Poikilocytosis Not Reportable 07/18/20 04:31 Anisocytosis 1+ 07/18/20 04:31 Microcytosis Not Reportable 07/18/20 04:31 Macrocytosis Not Reportable 07/18/20 04:31 Spherocytes Not Reportable 07/18/20 04:31 Pappenheimer Bodies Not Reportable 07/18/20 04:31 Sickle Cells Not Reportable 07/18/20 04:31 Target Cells Not Reportable 07/18/20 04:31 Tear Drop Cells Not Reportable 07/18/20 04:31 Ovalocytes Not Reportable 07/18/20 04:31 Helmet Cells Not Reportable 07/18/20 04:31 [place] Bodies Not Reportable 07/18/20 04:31 [place] Rings Not Reportable 07/18/20 04:31 Jose Enrique Cells Not Reportable 07/18/20 04:31 Bite Cells Not Reportable 07/18/20 04:31 Crenated Cell Not Reportable 07/18/20 04:31 Elliptocytes Not Reportable 07/18/20 04:31 Acanthocytes (Spur) Not Reportable 07/18/20 04:31 Rouleaux Not Reportable 07/18/20 04:31 Hemoglobin C Crystals Not Reportable 07/18/20 04:31 Schistocytes Not Reportable 07/18/20 04:31 Malaria parasites Not Reportable 07/18/20 04:31 Wilfredo Bodies Not Reportable 07/18/20 04:31 Hem Pathologist Commnt No 07/18/20 04:31 PT 13.7 Sec. (12.2-14.9) 07/18/20 04:31 INR 1.06 (0.87-1.13) 07/18/20 04:31 D-Dimer > 94729 ng/mlDDU (0-234) H 07/26/20 10:07 ABG pH 7.374 (7.320-7.450) 08/08/20 04:41 POC ABG pCO2 63.1 mmHg (32.0-48.0) H 08/08/20 04:41 POC ABG pO2 70.7 mmHg (83-108) L 08/08/20 04:41 POC ABG HCO3 36.0 08/08/20 04:41 POC ABG Base Excess 8.9 08/08/20 04:41 ABG Hemoglobin 11.5 (12.0-17.5) L 08/08/20 04:41 ABG Oxyhemoglobin 91.0 (94-98) L 08/08/20 04:41 ABG Methemoglobin 0.3 (0.0-1.5) 08/08/20 04:41 ABG Sodium 148.5 mmol/L (136.0-145.0) H 08/08/20 04:41 ABG Potassium 4.0 mmol/L (3.40-4.50) 08/08/20 04:41 ABG Chloride 108.0 mmol/L (98-107) H 08/08/20 04:41 ABG Glucose 102 mg/dL (65-95) H 08/08/20 04:41 Carboxyhemoglobin 0.9 (0.5-1.5) 08/08/20 04:41 FiO2 60.0 08/08/20 04:41 Sodium 151 mmol/L (137-145) H 08/07/20 04:00 Potassium 4.3 mmol/L (3.6-5.0) 08/07/20 04:00 Chloride 109.6 mmol/L (98-107) H 08/07/20 04:00 Carbon Dioxide 34 mmol/L (22-30) H 08/07/20 04:00 Anion Gap 12 mmol/L 08/07/20 04:00 BUN 29 mg/dL (9-20) H 08/07/20 04:00 Creatinine 0.5 mg/dL (0.8-1.3) L 08/07/20 04:00 Estimated GFR > 60 ml/min 08/07/20 04:00 BUN/Creatinine Ratio 58 % 08/07/20 04:00 Glucose 134 mg/dL (75-100) H 08/07/20 04:00 POC Glucose 225 mg/dL (70-105) H 08/08/20 11:57 Calcium 8.4 mg/dL (8.4-10.2) 08/07/20 04:00 Phosphorus 2.60 mg/dL (2.5-4.5) 08/08/20 12:40 Magnesium 2.20 mg/dL (1.7-2.3) 08/08/20 12:40 Ferritin 1079.0 ng/mL (30.0-300.0) H 07/26/20 10:07 Total Bilirubin 0.40 mg/dL (0.1-1.2) 08/07/20 04:00 Direct Bilirubin < 0.2 mg/dL (0-0.2) 07/22/20 04:31 Indirect Bilirubin 0.0 mg/dL 07/22/20 04:31 AST 21 units/L (5-40) 08/07/20 04:00 ALT 44 units/L (7-56) 08/07/20 04:00 Alkaline Phosphatase 99 units/L (35-129) 08/07/20 04:00 Lactate Dehydrogenase 708 units/L (91-180) H 07/26/20 10:07 Total Creatine Kinase 174 units/L (55-170) H 07/30/20 10:33 CK-MB (CK-2) 4.5 ng/mL (0.0-4.0) H 07/30/20 10:33 CK-MB (CK-2) Rel Index 2.5 (0-4) 07/30/20 10:33 Troponin T 0.018 ng/mL (0.00-0.029) 07/30/20 10:33 C-Reactive Protein 6.10 mg/dL (0.00-1.30) H 07/26/20 10:07 NT-Pro-B Natriuret Pep 290.3 pg/mL (0-900) 07/18/20 16:33 Total Protein 5.4 g/dL (6.3-8.2) L 08/07/20 04:00 Albumin 2.8 g/dL (3.9-5) L 08/07/20 04:00 Albumin/Globulin Ratio 1.1 % 08/07/20 04:00 Triglycerides 250 mg/dL (2-149) H 08/07/20 04:00 Procalcitonin 0.94 ng/mL (<0.15) 07/17/20 22:48 Arterial Blood Glucose 102 mg/dL (65-95) H 08/08/20 04:41 Arterial Blood Ionized Calcium 4.8 mg/dL (4.6-5.3) 08/08/20 04:41 Urine Color Yellow (Yellow) 08/02/20 11:30 Urine Turbidity Clear (Clear) 08/02/20 11:30 Urine pH 5.0 (5.0-7.0) 08/02/20 11:30 Ur Specific [place] 1.027 (1.003-1.030) 08/02/20 11:30 Urine Protein <15 mg/dl mg/dL (Negative) 08/02/20 11:30 Urine Glucose (UA) Neg mg/dL (Negative) 08/02/20 11:30 Urine Ketones Neg mg/dL (Negative) 08/02/20 11:30 Urine Blood Neg (Negative) 08/02/20 11:30 Urine Nitrite Neg (Negative) 08/02/20 11:30 Urine Bilirubin Neg (Negative) 08/02/20 11:30 Urine Urobilinogen < 2.0 mg/dL (<2.0) 08/02/20 11:30 Ur Leukocyte Esterase Neg (Negative) 08/02/20 11:30 Urine WBC (Auto) 1.0 /HPF (0.0-6.0) 08/02/20 11:30 Urine RBC (Auto) 3.0 /HPF (0.0-6.0) 08/02/20 11:30 Hyaline Casts 1 /LPF 08/02/20 11:30 Granular Casts 1 /LPF 08/02/20 11:30 Urine Mucus Few /HPF 08/02/20 11:30 Coronavirus (PCR) Positive (Negative) A 07/18/20 08:50 SARS-CoV-2 IgG Ab Reactive (NonReactive) A 07/21/20 05:24 Microbiology: Microbiology 08/02/20 13:32 Peripheral/Venous Blood Culture - Final NO GROWTH AFTER 5 DAYS 08/02/20 13:32 Peripheral/Venous Blood Culture - Final NO GROWTH AFTER 5 DAYS [place]/IV: Voiding Method Indwelling Catheter IV Catheter Type [Left Upper PICC Line arm] IV Catheter Type [Left Hand] INT / Saline Lock IV Catheter Type [Left Wrist] INT / Saline Lock IV Catheter Type [Left INT / Saline Lock Antecubital] IV Catheter Type [Right Distal INT / Saline Lock Port Hand] Active Medications - Current Medications Current Medications: Generic Name Dose Route Start Last Admin Trade Name Freq PRN Reason Stop Dose Admin Acetaminophen 650 mg 07/17/20 22:21 08/06/20 13:14 Acetaminophen 325 Mg Tab PO 650 mg Q4H PRN Administration Pain MILD(1-3)/Fever >100.5/AWAD Albuterol 2.5 mg 07/18/20 16:14 07/18/20 19:45 Albuterol 2.5 Mg/3 Ml Nebu IH 2.5 mg Q4HRT PRN Administration Shortness Of Breath Lipase/Protease/Amylase 1 each 07/31/20 12:23 Lipase 10,500/Protease 25,000/Amylase 43,750 (Units) Dr Olson FEEDTUBE PRN PRN For Clogged Feeding Tube Dexamethasone 6 mg 07/31/20 11:00 08/08/20 09:40 Dexamethasone 4 Mg/Ml Vial IV 6 mg Q24HR SHERON Administration Dextrose 50 ml 08/06/20 13:14 Dextrose 50% In Water (25gm) 50 Ml Syringe IV Q30MIN PRN Hypoglycemia Protocol Enoxaparin Sodium 40 mg 07/18/20 22:00 08/07/20 21:58 Enoxaparin 40 Mg/0.4 Ml Inj SUB-Q 40 mg QDAY@2200 [facility] Administration Protocol Famotidine 20 mg 08/01/20 10:00 08/08/20 09:41 Famotidine 20 Mg Tab PO 20 mg BID SHERON Administration Fentanyl 50 mcg 07/31/20 11:00 08/01/20 21:22 Fentanyl 100 Mcg/2 Ml Inj IV 50 mcg Q10MIN PRN Administration ANALGESIA Hydrophilic Ointment 1 applic 07/31/20 11:00 Lip Therapy Vaseline TP Q2H PRN Dry Lips Propofol 1,000 mg in 100 mls @ 2.658 mls/hr 07/31/20 08:00 08/08/20 12:28 Diprivan 10 Mg/Ml IV 35 mcg/kg/min TITR SHERON 18.606 mls/hr Administration Protocol 5 MCG/KG/MIN Norepinephrine 4 mg in 250 mls @ 7.5 mls/hr 07/31/20 09:00 08/01/20 02:37 Levophed Drip 4 Mg/Ns 250 Ml IV 0 mcg/min TITR SHERON 0 mls/hr Titration Protocol 2 MCG/MIN Fentanyl Citrate 2,000 mcg in 100 mls @ 4.43 mls/hr 07/31/20 11:00 08/08/20 11:30 Fentanyl Drip Premix IV 4 mcg/kg/hr TITR SHERON 17.72 mls/hr Titration Protocol 1 MCG/KG/HR Insulin Human Lispro 0 unit 08/07/20 00:00 08/08/20 12:29 Insulin Lispro 100 Unit/Ml Vial 3 Ml SUB-Q 3 unit Q6HR [facility] Administration Protocol Lorazepam 2 mg 08/08/20 11:36 08/08/20 12:00 Lorazepam 2 Mg/Ml Vial IV 2 mg Q4H PRN Administration Agitation Magnesium Hydroxide 30 ml 07/17/20 22:21 08/05/20 11:11 Magnesium Hydroxide (Mom) Oral Liqd Udc PO 30 ml Q4H PRN Administration Constipation Multi-Ingred Cream/Lotion/Oil/Oint 1 applic 07/31/20 10:55 Mineral Oil/Petrolatum, White Ophth Oint 3.5 Gm OU Q4H PRN Dry Eye(s) Ondansetron HCl 4 mg 07/17/20 22:21 07/20/20 02:21 Ondansetron 4 Mg/2 Ml Inj IV 4 mg Q8H PRN Administration Nausea And Vomiting Senna/Docusate Sodium 2 tab 08/03/20 11:00 08/08/20 09:40 Sennosides/Docusate Sodium 8.6/50 Mg Tab PO 2 tab BID SHERON Administration Simple Syrup 15 ml 07/31/20 12:23 Simple Syrup 15 Ml FEEDTUBE PRN PRN Hypoglycemia Simple Syrup 30 ml 07/31/20 12:23 Simple Syrup 15 Ml FEEDTUBE PRN PRN Hypoglycemia Sodium Bicarbonate 325 mg 07/31/20 12:23 Sodium Bicarbonate 325 Mg Tab FEEDTUBE PRN PRN For Clogged Feeding Tube Sodium Chloride 10 ml 07/17/20 22:01 07/17/20 22:13 Sodium Chloride 0.9% 10 Ml Flush Syringe IV 10 ml PRN PRN Administration LINE FLUSH Sodium Chloride 10 ml 07/18/20 10:00 08/08/20 09:41 Sodium Chloride 0.9% 10 Ml Flush Syringe IV 10 ml BID SHERON Administration Trazodone HCl 50 mg 07/30/20 22:00 08/07/20 21:58 Trazodone 50 Mg Tab PO 50 mg QHS SHERON Administration Nutrition/Malnutrition Assess - Dietary Evaluation Nutrition/Malnutrition Findings: Nutrition Notes Start: 07/23/20 13:19 Freq: Status: Active Protocol: Document 08/06/20 10:06 (Rec: 08/06/20 10:13 [id number]) Nutrition Notes Need for Assessment generated from: MD Order Initial or Follow up Reassessment Current Diagnosis Respiratory Failure Other Pertinent Diagnosis COVID-19 (+), pneu, prerenal azotemia Current Diet Vital AF 1.2 at 70ml/hr Labs/Tests Na 151 BUN 29 Cr 0.7 BG 194 Pertinent Medications Reviewed Height 5 ft 11 in Weight 89.7 kg [place] Body Weight (kg) 78.18 BMI 27.6 Weight Status Overweight Subjective/Other Information MD order for TF. Pt to be proned. Pt without BM noted in chart. Percent of energy/protein needs met: 97%/100% Burn Absent Trauma Absent Current % PO Negligible Minimum of two criteria No Energy Intake (severe) < or equal to 50% Estimated Energy Requirement > or equal to 5 days #1 Nutrition Diagnosis Inadequate oral intake Diagnosis Progress(for reassessment Continues documentation) Is patient on ventilator? Yes Is Patient Ambulatory and/or Out of Bed No REE-([facility]-confined to bed) 4.310 Calculation Used for Recommendations [facility] Additional Notes Pro needs 1.2-2g/k-176g/ day Fluid needs 1ml/kcal Nutrition Intervention Change Diet Order: Continue TF Nutrition Support: Vital AF 1.2 at 70ml/hr with 300ml water flush q4h until hypernatremia resolved; then 115ml q4h. When pronin hr proned: Vital AF 1.2 at 20 ml/hr, flush 100 ml q4h for hypernatremia, or per MD; then 50 ml q4h once resolved. 12 hr supine: Vital AF 1.2 at 120 ml/hr, flush 350 ml q4h for hypernatremia, or per MD; then 180 q4h once resolved. Kcal 2,016 Protein (gm) 126 Carbohydrates (gm) 186 Fat (gm) 91 Fluid (mL) 1,362 Goal #1 TF tolerance Goal #2 TF to meet at least 75% energy and pro needs Anticipated Discharge Needs: Unable to determine at this time Follow-Up By: 08/09/20 Additional Comments FU for TF tolerance, Na labs
[2020-08-08] MEDS ORDERED: FUROSEMIDE 40 MG/4 ML INJ IV NR (18:47)
[2020-08-08] MEDS: ZINC SULFATE 220 MG CAP PO SCH (19:29)
[2020-08-08] MEDS: CHOLECALCIFEROL (VIT D3) 5,000 UNIT TAB PO SCH (20:32)
[2020-08-08] MEDS: ENOXAPARIN 100 MG/1 ML INJ SUB-Q SCH (21:00)
[2020-08-08] MEDS: ASCORBIC ACID 500 MG TAB PO SCH (21:00)
[2020-08-08] MEDS: traZODone 50 MG TAB PO SCH (21:00)
[2020-08-09] MEDS: INSULIN LISPRO 100 UNIT/ML VIAL 3 mL SUB-Q SCH ×4 (01:14→17:29)
[2020-08-09] MEDS: fentaNYL DRIP Premix 2,000 MCG/100 ML BAG IV SCH ×3 (04:48→22:32)
[2020-08-09 08:21] LABS: Blood Urea Nitrogen 32 mg/dL (9-20); Calcium 8.1 mg/dL (8.4-10.2); Hemolysis Index 7
[2020-08-09 08:40] LABS: BUN/Creatinine Ratio 53
[2020-08-09] MEDS: SENNOSIDES/DOCUSATE SODIUM 8.6/50 MG TAB PO SCH ×2 (09:21→22:33)
[2020-08-09] MEDS: dexAMETHasone 4 MG/ML VIAL IV SCH (09:21)
[2020-08-09] MEDS: ENOXAPARIN 100 MG/1 ML INJ SUB-Q SCH ×2 (09:22→22:32)
[2020-08-09] MEDS: ZINC SULFATE 220 MG CAP PO SCH (09:22)
[2020-08-09] MEDS: ASCORBIC ACID 500 MG TAB PO SCH ×2 (09:22→22:32)
[2020-08-09] MEDS: FAMOTIDINE 20 MG TAB PO SCH ×2 (09:24→22:32)
[2020-08-09] MEDS: CHOLECALCIFEROL (VIT D3) 5,000 UNIT TAB PO SCH (09:30)
[2020-08-09] MEDS: fentaNYL 100 MCG/2 ML INJ IV PRN (10:30)
[2020-08-09] MEDS: DEXTROSE 5% IN WATER 1,000 ML IV SCH (13:26)
--- NOTE | 2020-08-09 14:39 | Progress Note ---
Assessment and Plan 60 y/o male with chest discomfort, shortness of breath and abnormal CXR, COVID Positive 08/09/20: Day 8 of intubation. Continue proning as patient is tolerating this and making slow improvement. Continue PEEP at current settings. IMS will update family and I will discuss with IMS my medical opinion to be conveyed to them. 08/08/20: Prone again today. Same weaning parameters as yesterday. Will order labs for am. Calling now and see if she needs the other the family on the phone to update her. Prognosis still remains very guarded to poor. Asked RT to be as aggressive as possible with weaning FiO2. The unfortunately is not understanding how sick the patient is. I am trying my best to explain to her on a daily basis about this. But she does not accept when I tell her that he has remained stable. 08/07/20: Will prone again today. Wean FiO2 for sats >88% and PaO2 >55. Continue to monitor daily urine function and output. I again today explained the severity of the Mr. Suarez's clinical state as best I could using laymen terms. The other family member on the phone says that the communication has not bee consistent. The patient received Remdesivir while he was on the floor. He did get all 5 doses. I explained to the family that there is no indication for longer therapy or ID would have recommended. I also explained to them that I have extended the steroids to see if this would help beyond the current clinical recommendations. I also explained again that there is no cure for COVID 19 and that all measures are experimental as well as supportive. I also explained why he needs sedation while intubated and especially when proning. I am still not sure that they fully understand the extent of his illness but will continue to speak with them. Guarded prognosis. 08/06/20: Increase PEEP today to 16. Repeat gas tomorrow morning. Wean FiO2 today for sats >88%. Spoke with RT and PaO2 of 55 and greater are ok. will prone tonight for 12 hours at least. Remains in sinus tach. No labs drawn this am will order for stat this morning including BMP and Mag and Phos, CBC. Spoke with this am to update her. She is upset and asks to do everything for him that we can which I told her we would. I was also very honest about the severity of the disease which made her even more sad. 08/05/20: Did not increase PEEP yesterday. PaO2 improved on own. Will wean FiO2 down today for sats >88%. Hold on proning for now. Continue steroids. Needs better rate control. Most likely sinus tach from hypoxemia, but needs 12 lead if not done yet. Needs labs checked to assess electrolytes. Prognosis remains guarded to poor. Will attempt to reach today, if not today tomorrow. 08/04/20: Will increase PEEP to 16 today. If no improvement in the next 24 hours then will start proning patient tomorrow night. Continue steroids. Overall prognosis remains very guarded. 08/03/20: Chemistry not ordered, ordered today. Follow up blood cultures. Increased PEEP to 14 and RT will attempt to wean FiO2 back down to 50's. Will continue steroids at current dosing for now. He has already completed to original 10 days. Given some improvement, would like to continue. Overall pr ognosis remains very guarded. 08/02/20: Check blood and urine cultures along with UA. Will check repeat CXR. Repeat Chemistry tomorrow. Hold on abx therapy for right now. Prognosis remains guarded. Continue steroids. Wean FiO2 for sats >88% 08/01/20: Overall prognosis here is very very guarded to poor. Will consider proning patient later today if not able to wean FiO2 any further this afternoon. Per CM, wants to come see patient which is very reasonable. Will continue steroids despite completing 10 days of this. 07/29/20: Supportive measures. Proning and wean as tolerated. 07/28/20: No new recommendations as of right now. When beds become available will move patient down stairs for closer monitoring. 07/27/20: Difficult situation. Patient appears to be not responding to any therapy. Steroids finished yesterday. Given the degree of inflammation will restart steroids for at least another 72-96 hours. In no improvement will stop. Not much else to do medical therapy [place]. Continue to keep patient net negative. Still remains high risk for intubation and if intubated given his current response to steroids, very high mortality. 07/26/20: No new recs for today. Patient really needs to try to prone as much as possible during the day and sleep prone at night. He remains a high risk for cardiac arrest and intubation. 07/25/20: very high risk for cardiac arrest from hypoxemia, but no available beds in ICU. Given COVID status, ideally would not like to use bipap but may have to in the event of continued desats. While proning does better and does not need the mask along with HFNC. Encourage to prone as long as possible. 1. Continue steroids for 10 days. 2. Continue Remdesivir. Not a candidate for Convalescent Plasma 3. Please ask patient prone as tolerated during the day and sleep prone at night. Currently doing and tolerating 4. Agree with daily lasix but will need labs to monitor renal function and electrolytes. Needs labs for today. 5. Guarded prognosis to poor now with increasing oxygen requirement. May require intubation and high risk for cardiac arrest. CCT 31 Subjective Date of service: 08/09/20 Principal diagnosis: Acute respiratory failure with hypoxia, Covid pneumonia Interval history: No acute events. While proned was able to get down to 55% but had to increase back up to 60 once supine. PEEP remains at 16. Was given lasix yesterday. Renal function remains stable. Objective Vital Signs - 12hr 08/09/20 08/09/20 08/09/20 02:46 03:00 03:16 Temperature Pulse Rate 90 89 87 Pulse Rate [ From Monitor] Respiratory 30 H 30 H 30 H Rate Blood Pressure 120/65 97/55 97/55 O2 Sat by Pulse 97 97 98 Oximetry 08/09/20 08/09/20 08/09/20 03:30 03:38 03:46 Temperature 97.6 F Pulse Rate 90 87 Pulse Rate [ From Monitor] Respiratory 30 H 30 H Rate Blood Pressure 113/64 113/64 O2 Sat by Pulse 98 97 Oximetry 08/09/20 08/09/20 08/09/20 04:00 04:15 04:31 Temperature Pulse Rate 86 97 H 74 Pulse Rate [ 84 From Monitor] Respiratory 30 H 30 H 30 H Rate Blood Pressure 121/62 113/64 122/69 O2 Sat by Pulse 97 98 93 Oximetry 08/09/20 08/09/20 08/09/20 04:45 05:00 05:15 Temperature Pulse Rate 91 H 89 92 H Pulse Rate [ From Monitor] Respiratory 30 H 30 H 30 H Rate Blood Pressure 122/69 106/59 121/62 O2 Sat by Pulse 96 98 98 Oximetry 08/09/20 08/09/20 08/09/20 05:30 05:45 06:00 Temperature Pulse Rate 94 H 88 97 H Pulse Rate [ From Monitor] Respiratory 30 H 28 H 24 Rate Blood Pressure 98/59 98/59 125/59 O2 Sat by Pulse 97 96 94 Oximetry 08/09/20 08/09/20 08/09/20 06:15 06:30 06:45 Temperature Pulse Rate 95 H 96 H 97 H Pulse Rate [ From Monitor] Respiratory 20 23 26 H Rate Blood Pressure 125/59 129/63 129/63 O2 Sat by Pulse 94 95 93 Oximetry 08/09/20 08/09/20 08/09/20 07:00 07:15 07:30 Temperature Pulse Rate 98 H 98 H 110 H Pulse Rate [ From Monitor] Respiratory 20 16 19 Rate Blood Pressure 136/67 136/67 136/65 O2 Sat by Pulse 94 93 94 Oximetry 08/09/20 08/09/20 08/09/20 07:45 07:55 08:00 Temperature Pulse Rate 103 H 99 H 123 H Pulse Rate [ 113 H From Monitor] Respiratory 12 30 H Rate Blood Pressure 136/65 136/65 123/68 O2 Sat by Pulse 93 93 99 Oximetry 08/09/20 08/09/20 08/09/20 08:15 08:30 08:45 Temperature Pulse Rate 106 H 113 H 114 H Pulse Rate [ From Monitor] Respiratory 30 H 17 16 Rate Blood Pressure 123/68 138/66 138/66 O2 Sat by Pulse 93 91 91 Oximetry 08/09/20 08/09/20 08/09/20 09:00 09:15 09:31 Temperature Pulse Rate 110 H 113 H 117 H Pulse Rate [ From Monitor] Respiratory 20 17 22 Rate Blood Pressure 137/72 137/72 141/71 O2 Sat by Pulse 91 92 90 Oximetry 08/09/20 08/09/20 08/09/20 09:45 10:00 10:15 Temperature Pulse Rate 115 H 114 H 120 H Pulse Rate [ From Monitor] Respiratory 13 16 17 Rate Blood Pressure 141/71 154/82 154/82 O2 Sat by Pulse 91 89 89 Oximetry 08/09/20 08/09/20 08/09/20 10:30 10:45 10:59 Temperature Pulse Rate 122 H 122 H 134 H Pulse Rate [ From Monitor] Respiratory 25 H 30 H Rate Blood Pressure 152/70 152/70 152/70 O2 Sat by Pulse 87 90 97 Oximetry 08/09/20 08/09/20 08/09/20 11:00 11:15 11:30 Temperature Pulse Rate 134 H 122 H 122 H Pulse Rate [ From Monitor] Respiratory 31 H 27 H 30 H Rate Blood Pressure 148/71 148/71 144/73 O2 Sat by Pulse 97 91 91 Oximetry 08/09/20 08/09/20 08/09/20 11:45 12:00 12:15 Temperature Pulse Rate 120 H 122 H 120 H Pulse Rate [ 113 H From Monitor] Respiratory 30 H 30 H 28 H Rate Blood Pressure 144/73 136/67 136/67 O2 Sat by Pulse 91 91 91 Oximetry 08/09/20 08/09/20 08/09/20 12:30 12:45 13:00 Temperature Pulse Rate 121 H 120 H 121 H Pulse Rate [ From Monitor] Respiratory 30 H 31 H 30 H Rate Blood Pressure 139/74 139/74 141/73 O2 Sat by Pulse 93 93 94 Oximetry Constitutional: other (orally intubated on vent) Eyes: non-icteric ENT: oropharynx moist Neck: supple Ascultation: Bilateral: diminished breath sounds, rhonchi Cardiovascular: regular rate and rhythm, other (tachycardia) Gastrointestinal: normoactive bowel sounds, soft, non-tender, non-distended Integumentary: normal Extremities: no cyanosis Neurologic: normal mental status, non-focal exam CBC and BMP: 08/07/20 04:00 08/09/20 06:49 ABG, PT/INR, D-dimer: ABG ABG pH 7.358 (7.320-7.450) 08/09/20 05:44 POC ABG pCO2 67.9 mmHg (32.0-48.0) H 08/09/20 05:44 POC ABG pO2 73.4 mmHg (83-108) L 08/09/20 05:44 POC ABG HCO3 37.3 08/09/20 05:44 PT/INR, D-dimer PT 13.7 Sec. (12.2-14.9) 07/18/20 04:31 INR 1.06 (0.87-1.13) 07/18/20 04:31 D-Dimer > 11351 ng/mlDDU (0-234) H 01/05/21 10:07 Abnormal lab findings: Abnormal Labs 07/17/20 07/17/20 07/17/20 17:30 17:30 22:48 WBC RBC Hgb Hct MCV MCH MCHC 35 H RDW Plt Count Lymph % (Auto) 10.5 L Lymph # (Auto) 0.7 L Seg Neutrophils % 85.3 H Lymphocytes % (Manual) Seg Neutrophils # Seg Neutrophils # Man Lymphocytes # (Manual) D-Dimer 314.21 H POC ABG pCO2 POC ABG pO2 ABG Hemoglobin ABG Oxyhemoglobin ABG Sodium ABG Potassium ABG Chloride ABG Glucose Sodium Chloride Carbon Dioxide BUN 1 L Creatinine Glucose 154 H POC Glucose Calcium Magnesium Ferritin Alkaline Phosphatase Lactate Dehydrogenase Total Creatine Kinase CK-MB (CK-2) C-Reactive Protein Total Protein Albumin Triglycerides Arterial Blood Glucose Arterial Blood Ionized Calcium Coronavirus (PCR) SARS-CoV-2 IgG Ab 07/17/20 07/17/20 07/18/20 22:48 22:48 04:31 WBC RBC Hgb Hct MCV MCH 33 H MCHC 35 H RDW 13.1 L Plt Count Lymph % (Auto) Lymph # (Auto) Seg Neutrophils % Lymphocytes % (Manual) 5.0 L Seg Neutrophils # Seg Neutrophils # Man 8.1 H Lymphocytes # (Manual) 0.4 L D-Dimer POC ABG pCO2 POC ABG pO2 ABG Hemoglobin ABG Oxyhemoglobin ABG Sodium ABG Potassium ABG Chloride ABG Glucose Sodium Chloride Carbon Dioxide BUN Creatinine Glucose 124 H POC Glucose Calcium Magnesium Ferritin 889.3 H Alkaline Phosphatase Lactate Dehydrogenase 832 H Total Creatine Kinase CK-MB (CK-2) C-Reactive Protein 17.70 H Total Protein Albumin Triglycerides Arterial Blood Glucose Arterial Blood Ionized Calcium Coronavirus (PCR) SARS-CoV-2 IgG Ab 07/18/20 07/18/20 07/18/20 04:31 08:50 18:48 WBC RBC Hgb Hct MCV MCH MCHC RDW Plt Count Lymph % (Auto) Lymph # (Auto) Seg Neutrophils % Lymphocytes % (Manual) Seg Neutrophils # Seg Neutrophils # Man Lymphocytes # (Manual) D-Dimer 275.27 H POC ABG pCO2 POC ABG pO2 ABG Hemoglobin ABG Oxyhemoglobin ABG Sodium ABG Potassium ABG Chloride ABG Glucose Sodium Chloride Carbon Dioxide 31 H D BUN 23 H Creatinine Glucose 143 H POC Glucose Calcium Magnesium Ferritin Alkaline Phosphatase Lactate Dehydrogenase Total Creatine Kinase CK-MB (CK-2) C-Reactive Protein Total Protein Albumin Triglycerides Arterial Blood Glucose Arterial Blood Ionized Calcium Coronavirus (PCR) Positive A SARS-CoV-2 IgG Ab 07/18/20 07/18/20 07/20/20 18:48 18:48 08:56 WBC RBC Hgb Hct MCV MCH MCHC RDW Plt Count Lymph % (Auto) Lymph # (Auto) Seg Neutrophils % Lymphocytes % (Manual) Seg Neutrophils # Seg Neutrophils # Man Lymphocytes # (Manual) D-Dimer POC ABG pCO2 POC ABG pO2 ABG Hemoglobin ABG Oxyhemoglobin ABG Sodium ABG Potassium ABG Chloride ABG Glucose Sodium Chloride Carbon Dioxide BUN 22 H Creatinine Glucose 219 H POC Glucose Calcium Magnesium Ferritin 1164.0 H Alkaline Phosphatase Lactate Dehydrogenase 560 H 739 H Total Creatine Kinase CK-MB (CK-2) C-Reactive Protein 18.00 H 17.50 H Total Protein Albumin 3.0 L Triglycerides Arterial Blood Glucose Arterial Blood Ionized Calcium Coronavirus (PCR) SARS-CoV-2 IgG Ab 07/20/20 07/20/20 07/21/20 08:56 08:56 05:24 WBC RBC Hgb Hct MCV MCH MCHC RDW Plt Count Lymph % (Auto) Lymph # (Auto) Seg Neutrophils % Lymphocytes % (Manual) Seg Neutrophils # Seg Neutrophils # Man Lymphocytes # (Manual) D-Dimer 9523.70 H POC ABG pCO2 POC ABG pO2 ABG Hemoglobin ABG Oxyhemoglobin ABG Sodium ABG Potassium ABG Chloride ABG Glucose Sodium Chloride Carbon Dioxide BUN Creatinine Glucose POC Glucose Calcium Magnesium Ferritin 1581.0 H Alkaline Phosphatase Lactate Dehydrogenase Total Creatine Kinase CK-MB (CK-2) C-Reactive Protein Total Protein Albumin Triglycerides Arterial Blood Glucose Arterial Blood Ionized Calcium Coronavirus (PCR) SARS-CoV-2 IgG Ab Reactive A 07/22/20 07/24/20 07/26/20 04:31 13:26 10:07 WBC RBC Hgb Hct MCV MCH MCHC RDW Plt Count Lymph % (Auto) Lymph # (Auto) Seg Neutrophils % Lymphocytes % (Manual) Seg Neutrophils # Seg Neutrophils # Man Lymphocytes # (Manual) D-Dimer > 48233 H POC ABG pCO2 POC ABG pO2 ABG Hemoglobin ABG Oxyhemoglobin ABG Sodium ABG Potassium ABG Chloride ABG Glucose Sodium 146 H Chloride Carbon Dioxide 32 H BUN 28 H 26 H Creatinine Glucose 144 H 116 H POC Glucose Calcium 8.3 L Magnesium Ferritin Alkaline Phosphatase Lactate Dehydrogenase Total Creatine Kinase CK-MB (CK-2) C-Reactive Protein Total Protein Albumin 3.3 L Triglycerides Arterial Blood Glucose Arterial Blood Ionized Calcium Coronavirus (PCR) SARS-CoV-2 IgG Ab 07/26/20 07/26/20 07/27/20 10:07 10:07 19:45 WBC RBC Hgb Hct MCV MCH MCHC RDW Plt Count Lymph % (Auto) Lymph # (Auto) Seg Neutrophils % Lymphocytes % (Manual) Seg Neutrophils # Seg Neutrophils # Man Lymphocytes # (Manual) D-Dimer POC ABG pCO2 POC ABG pO2 ABG Hemoglobin ABG Oxyhemoglobin ABG Sodium ABG Potassium ABG Chloride ABG Glucose Sodium Chloride 97.4 L Carbon Dioxide 33 H BUN 27 H Creatinine Glucose 175 H POC Glucose Calcium Magnesium Ferritin 1079.0 H Alkaline Phosphatase Lactate Dehydrogenase 708 H Total Creatine Kinase CK-MB (CK-2) C-Reactive Protein 6.10 H Total Protein Albumin Triglycerides Arterial Blood Glucose Arterial Blood Ionized Calcium Coronavirus (PCR) SARS-CoV-2 IgG Ab 07/29/20 07/30/20 07/30/20 02:09 10:33 11:54 WBC RBC Hgb Hct MCV MCH MCHC RDW Plt Count Lymph % (Auto) Lymph # (Auto) Seg Neutrophils % Lymphocytes % (Manual) Seg Neutrophils # Seg Neutrophils # Man Lymphocytes # (Manual) D-Dimer POC ABG pCO2 POC ABG pO2 ABG Hemoglobin ABG Oxyhemoglobin ABG Sodium ABG Potassium ABG Chloride ABG Glucose Sodium Chloride Carbon Dioxide BUN Creatinine Glucose POC Glucose 183 H Calcium Magnesium 3.00 H Ferritin Alkaline Phosphatase Lactate Dehydrogenase Total Creatine Kinase 174 H CK-MB (CK-2) 4.5 H C-Reactive Protein Total Protein Albumin Triglycerides Arterial Blood Glucose Arterial Blood Ionized Calcium Coronavirus (PCR) SARS-CoV-2 IgG Ab 07/30/20 07/30/20 07/31/20 17:30 23:08 11:04 WBC RBC Hgb Hct MCV MCH MCHC RDW Plt Count Lymph % (Auto) Lymph # (Auto) Seg Neutrophils % Lymphocytes % (Manual) Seg Neutrophils # Seg Neutrophils # Man Lymphocytes # (Manual) D-Dimer POC ABG pCO2 POC ABG pO2 ABG Hemoglobin ABG Oxyhemoglobin ABG Sodium ABG Potassium ABG Chloride ABG Glucose Sodium 151 H D Chloride 109.2 H Carbon Dioxide 32 H BUN 48 H Creatinine Glucose 165 H POC Glucose 199 H 194 H Calcium Magnesium Ferritin Alkaline Phosphatase 168 H Lactate Dehydrogenase Total Creatine Kinase CK-MB (CK-2) C-Reactive Protein Total Protein Albumin 3.1 L Triglycerides Arterial Blood Glucose Arterial Blood Ionized Calcium Coronavirus (PCR) SARS-CoV-2 IgG Ab 07/31/20 07/31/20 07/31/20 11:18 11:23 17:47 WBC RBC Hgb Hct MCV MCH MCHC RDW Plt Count Lymph % (Auto) Lymph # (Auto) Seg Neutrophils % Lymphocytes % (Manual) Seg Neutrophils # Seg Neutrophils # Man Lymphocytes # (Manual) D-Dimer POC ABG pCO2 56.6 H POC ABG pO2 73.1 L ABG Hemoglobin ABG Oxyhemoglobin 92.1 L ABG Sodium ABG Potassium ABG Chloride 108.0 H ABG Glucose 169 H Sodium Chloride Carbon Dioxide BUN Creatinine Glucose POC Glucose 156 H 169 H Calcium Magnesium Ferritin Alkaline Phosphatase Lactate Dehydrogenase Total Creatine Kinase CK-MB (CK-2) C-Reactive Protein Total Protein Albumin Triglycerides Arterial Blood Glucose 169 H Arterial Blood Ionized Calcium Coronavirus (PCR) SARS-CoV-2 IgG Ab 07/31/20 07/31/20 07/31/20 20:58 23:18 23:55 WBC 19.8 H RBC Hgb Hct MCV 95 H MCH MCHC RDW 13.0 L Plt Count Lymph % (Auto) Lymph # (Auto) Seg Neutrophils % Lymphocytes % (Manual) Seg Neutrophils # Seg Neutrophils # Man Lymphocytes # (Manual) D-Dimer POC ABG pCO2 POC ABG pO2 ABG Hemoglobin ABG Oxyhemoglobin ABG Sodium ABG Potassium ABG Chloride ABG Glucose Sodium Chloride Carbon Dioxide BUN Creatinine Glucose POC Glucose 293 H 211 H Calcium Magnesium Ferritin Alkaline Phosphatase Lactate Dehydrogenase Total Creatine Kinase CK-MB (CK-2) C-Reactive Protein Total Protein Albumin Triglycerides Arterial Blood Glucose Arterial Blood Ionized Calcium Coronavirus (PCR) SARS-CoV-2 IgG Ab 08/01/20 08/01/20 08/01/20 03:47 08:30 12:27 WBC RBC Hgb Hct MCV MCH MCHC RDW Plt Count Lymph % (Auto) Lymph # (Auto) Seg Neutrophils % Lymphocytes % (Manual) Seg Neutrophils # Seg Neutrophils # Man Lymphocytes # (Manual) D-Dimer POC ABG pCO2 49.8 H POC ABG pO2 123.4 H ABG Hemoglobin ABG Oxyhemoglobin ABG Sodium ABG Potassium 4.6 H ABG Chloride 111.0 H ABG Glucose 130 H Sodium 154 H Chloride 115.1 H Carbon Dioxide 32 H BUN 49 H Creatinine Glucose 492 H POC Glucose 161 H Calcium 7.2 L D Magnesium Ferritin Alkaline Phosphatase Lactate Dehydrogenase Total Creatine Kinase CK-MB (CK-2) C-Reactive Protein Total Protein Albumin Triglycerides Arterial Blood Glucose 130 H Arterial Blood Ionized Calcium 4.5 L Coronavirus (PCR) SARS-CoV-2 IgG Ab 08/01/20 08/01/20 08/02/20 16:55 23:06 05:00 WBC RBC Hgb Hct MCV MCH MCHC RDW Plt Count Lymph % (Auto) Lymph # (Auto) Seg Neutrophils % Lymphocytes % (Manual) Seg Neutrophils # Seg Neutrophils # Man Lymphocytes # (Manual) D-Dimer POC ABG pCO2 52.5 H POC ABG pO2 69.8 L ABG Hemoglobin ABG Oxyhemoglobin ABG Sodium 147.2 H ABG Potassium ABG Chloride 110.0 H ABG Glucose 177 H Sodium Chloride Carbon Dioxide BUN Creatinine Glucose POC Glucose 195 H 162 H Calcium Magnesium Ferritin Alkaline Phosphatase Lactate Dehydrogenase Total Creatine Kinase CK-MB (CK-2) C-Reactive Protein Total Protein Albumin Triglycerides Arterial Blood Glucose 177 H Arterial Blood Ionized Calcium Coronavirus (PCR) SARS-CoV-2 IgG Ab 08/02/20 08/02/20 08/02/20 05:01 12:05 17:13 WBC RBC Hgb Hct MCV MCH MCHC RDW Plt Count Lymph % (Auto) Lymph # (Auto) Seg Neutrophils % Lymphocytes % (Manual) Seg Neutrophils # Seg Neutrophils # Man Lymphocytes # (Manual) D-Dimer POC ABG pCO2 POC ABG pO2 ABG Hemoglobin ABG Oxyhemoglobin ABG Sodium ABG Potassium ABG Chloride ABG Glucose Sodium Chloride Carbon Dioxide BUN Creatinine Glucose POC Glucose 146 H 166 H 209 H Calcium Magnesium Ferritin Alkaline Phosphatase Lactate Dehydrogenase Total Creatine Kinase CK-MB (CK-2) C-Reactive Protein Total Protein Albumin Triglycerides Arterial Blood Glucose Arterial Blood Ionized Calcium Coronavirus (PCR) SARS-CoV-2 IgG Ab 08/02/20 08/03/20 08/03/20 23:26 04:06 04:34 WBC RBC Hgb Hct MCV MCH MCHC RDW Plt Count Lymph % (Auto) Lymph # (Auto) Seg Neutrophils % Lymphocytes % (Manual) Seg Neutrophils # Seg Neutrophils # Man Lymphocytes # (Manual) D-Dimer POC ABG pCO2 55.6 H POC ABG pO2 66.1 L ABG Hemoglobin 11.9 L ABG Oxyhemoglobin 91.1 L ABG Sodium 145.7 H ABG Potassium 4.8 H ABG Chloride 111.0 H ABG Glucose 195 H Sodium Chloride Carbon Dioxide BUN Creatinine Glucose POC Glucose 157 H Calcium Magnesium Ferritin Alkaline Phosphatase Lactate Dehydrogenase Total Creatine Kinase CK-MB (CK-2) C-Reactive Protein Total Protein Albumin Triglycerides 207 H Arterial Blood Glucose 195 H Arterial Blood Ionized Calcium Coronavirus (PCR) SARS-CoV-2 IgG Ab 08/03/20 08/03/20 08/03/20 05:00 11:55 17:15 WBC RBC Hgb Hct MCV MCH MCHC RDW Plt Count Lymph % (Auto) Lymph # (Auto) Seg Neutrophils % Lymphocytes % (Manual) Seg Neutrophils # Seg Neutrophils # Man Lymphocytes # (Manual) D-Dimer POC ABG pCO2 POC ABG pO2 ABG Hemoglobin ABG Oxyhemoglobin ABG Sodium ABG Potassium ABG Chloride ABG Glucose Sodium Chloride Carbon Dioxide BUN Creatinine Glucose POC Glucose 179 H 173 H 217 H Calcium Magnesium Ferritin Alkaline Phosphatase Lactate Dehydrogenase Total Creatine Kinase CK-MB (CK-2) C-Reactive Protein Total Protein Albumin Triglycerides Arterial Blood Glucose Arterial Blood Ionized Calcium Coronavirus (PCR) SARS-CoV-2 IgG Ab 08/03/20 08/04/20 08/04/20 23:01 03:59 05:30 WBC RBC Hgb Hct MCV MCH MCHC RDW Plt Count Lymph % (Auto) Lymph # (Auto) Seg Neutrophils % Lymphocytes % (Manual) Seg Neutrophils # Seg Neutrophils # Man Lymphocytes # (Manual) D-Dimer POC ABG pCO2 54.6 H POC ABG pO2 66.2 L ABG Hemoglobin 10.8 L ABG Oxyhemoglobin 91.5 L ABG Sodium ABG Potassium ABG Chloride 110.0 H ABG Glucose 201 H Sodium Chloride Carbon Dioxide BUN Creatinine Glucose POC Glucose 222 H 137 H Calcium Magnesium Ferritin Alkaline Phosphatase Lactate Dehydrogenase Total Creatine Kinase CK-MB (CK-2) C-Reactive Protein Total Protein Albumin Triglycerides Arterial Blood Glucose 201 H Arterial Blood Ionized Calcium Coronavirus (PCR) SARS-CoV-2 IgG Ab 08/04/20 08/04/20 08/04/20 06:57 11:50 17:29 WBC RBC Hgb Hct MCV MCH MCHC RDW Plt Count Lymph % (Auto) Lymph # (Auto) Seg Neutrophils % Lymphocytes % (Manual) Seg Neutrophils # Seg Neutrophils # Man Lymphocytes # (Manual) D-Dimer POC ABG pCO2 POC ABG pO2 ABG Hemoglobin ABG Oxyhemoglobin ABG Sodium ABG Potassium ABG Chloride ABG Glucose Sodium 151 H Chloride 111.3 H Carbon Dioxide 36 H BUN 32 H Creatinine Glucose 160 H POC Glucose 158 H 180 H Calcium 8.2 L Magnesium 2.60 H Ferritin Alkaline Phosphatase Lactate Dehydrogenase Total Creatine Kinase CK-MB (CK-2) C-Reactive Protein Total Protein Albumin Triglycerides Arterial Blood Glucose Arterial Blood Ionized Calcium Coronavirus (PCR) SARS-CoV-2 IgG Ab 08/04/20 08/05/20 08/05/20 23:01 04:49 05:11 WBC RBC Hgb Hct MCV MCH MCHC RDW Plt Count Lymph % (Auto) Lymph # (Auto) Seg Neutrophils % Lymphocytes % (Manual) Seg Neutrophils # Seg Neutrophils # Man Lymphocytes # (Manual) D-Dimer POC ABG pCO2 56.7 H POC ABG pO2 80.6 L ABG Hemoglobin 10.9 L ABG Oxyhemoglobin ABG Sodium 145.9 H ABG Potassium ABG Chloride 109.0 H ABG Glucose 160 H Sodium Chloride Carbon Dioxide BUN Creatinine Glucose POC Glucose 160 H 134 H Calcium Magnesium Ferritin Alkaline Phosphatase Lactate Dehydrogenase Total Creatine Kinase CK-MB (CK-2) C-Reactive Protein Total Protein Albumin Triglycerides Arterial Blood Glucose 160 H Arterial Blood Ionized Calcium Coronavirus (PCR) SARS-CoV-2 IgG Ab 08/05/20 08/05/20 08/05/20 11:40 16:54 23:29 WBC RBC Hgb Hct MCV MCH MCHC RDW Plt Count Lymph % (Auto) Lymph # (Auto) Seg Neutrophils % Lymphocytes % (Manual) Seg Neutrophils # Seg Neutrophils # Man Lymphocytes # (Manual) D-Dimer POC ABG pCO2 POC ABG pO2 ABG Hemoglobin ABG Oxyhemoglobin ABG Sodium ABG Potassium ABG Chloride ABG Glucose Sodium Chloride Carbon Dioxide BUN Creatinine Glucose POC Glucose 137 H 243 H 154 H Calcium Magnesium Ferritin Alkaline Phosphatase Lactate Dehydrogenase Total Creatine Kinase CK-MB (CK-2) C-Reactive Protein Total Protein Albumin Triglycerides Arterial Blood Glucose Arterial Blood Ionized Calcium Coronavirus (PCR) SARS-CoV-2 IgG Ab 08/06/20 08/06/20 08/06/20 05:24 06:00 08:59 WBC 14.1 H RBC Hgb 11.5 L Hct MCV 98 H MCH MCHC RDW Plt Count 107 L Lymph % (Auto) Lymph # (Auto) Seg Neutrophils % Lymphocytes % (Manual) Seg Neutrophils # Seg Neutrophils # Man Lymphocytes # (Manual) D-Dimer POC ABG pCO2 58.9 H POC ABG pO2 53.0 L ABG Hemoglobin ABG Oxyhemoglobin 85.7 L ABG Sodium 148.4 H ABG Potassium 4.7 H ABG Chloride 109.0 H ABG Glucose 125 H Sodium Chloride Carbon Dioxide BUN Creatinine Glucose POC Glucose 122 H Calcium Magnesium Ferritin Alkaline Phosphatase Lactate Dehydrogenase Total Creatine Kinase CK-MB (CK-2) C-Reactive Protein Total Protein Albumin Triglycerides Arterial Blood Glucose 125 H Arterial Blood Ionized Calcium Coronavirus (PCR) SARS-CoV-2 IgG Ab 08/06/20 08/06/20 08/06/20 08:59 12:34 17:43 WBC RBC Hgb Hct MCV MCH MCHC RDW Plt Count Lymph % (Auto) Lymph # (Auto) Seg Neutrophils % Lymphocytes % (Manual) Seg Neutrophils # Seg Neutrophils # Man Lymphocytes # (Manual) D-Dimer POC ABG pCO2 POC ABG pO2 ABG Hemoglobin ABG Oxyhemoglobin ABG Sodium ABG Potassium ABG Chloride ABG Glucose Sodium 151 H Chloride 110.7 H Carbon Dioxide 36 H BUN 29 H Creatinine 0.7 L Glucose 194 H POC Glucose 193 H 204 H Calcium Magnesium Ferritin Alkaline Phosphatase Lactate Dehydrogenase Total Creatine Kinase CK-MB (CK-2) C-Reactive Protein Total Protein Albumin Triglycerides Arterial Blood Glucose Arterial Blood Ionized Calcium Coronavirus (PCR) SARS-CoV-2 IgG Ab 08/06/20 08/07/20 08/07/20 23:25 04:00 04:00 WBC RBC 3.59 L Hgb 11.3 L Hct 35.0 L MCV 97 H MCH MCHC RDW Plt Count 103 L Lymph % (Auto) 11.5 L Lymph # (Auto) Seg Neutrophils % 82.9 H Lymphocytes % (Manual) Seg Neutrophils # 9.0 H Seg Neutrophils # Man Lymphocytes # (Manual) D-Dimer POC ABG pCO2 POC ABG pO2 ABG Hemoglobin ABG Oxyhemoglobin ABG Sodium ABG Potassium ABG Chloride ABG Glucose Sodium 151 H Chloride 109.6 H Carbon Dioxide 34 H BUN 29 H Creatinine 0.5 L Glucose 134 H POC Glucose 150 H Calcium Magnesium Ferritin Alkaline Phosphatase Lactate Dehydrogenase Total Creatine Kinase CK-MB (CK-2) C-Reactive Protein Total Protein 5.4 L Albumin 2.8 L Triglycerides Arterial Blood Glucose Arterial Blood Ionized Calcium Coronavirus (PCR) SARS-CoV-2 IgG Ab 08/07/20 08/07/20 08/07/20 04:00 04:55 05:16 WBC RBC Hgb Hct MCV MCH MCHC RDW Plt Count Lymph % (Auto) Lymph # (Auto) Seg Neutrophils % Lymphocytes % (Manual) Seg Neutrophils # Seg Neutrophils # Man Lymphocytes # (Manual) D-Dimer POC ABG pCO2 62.8 H POC ABG pO2 75.0 L ABG Hemoglobin 11.9 L ABG Oxyhemoglobin 93.2 L ABG Sodium 148.2 H ABG Potassium ABG Chloride 108.0 H ABG Glucose 150 H Sodium Chloride Carbon Dioxide BUN Creatinine Glucose POC Glucose 116 H Calcium Magnesium Ferritin Alkaline Phosphatase Lactate Dehydrogenase Total Creatine Kinase CK-MB (CK-2) C-Reactive Protein Total Protein Albumin Triglycerides 250 H Arterial Blood Glucose 150 H Arterial Blood Ionized Calcium Coronavirus (PCR) SARS-CoV-2 IgG Ab 08/07/20 08/07/20 08/07/20 12:36 17:46 23:09 WBC RBC Hgb Hct MCV MCH MCHC RDW Plt Count Lymph % (Auto) Lymph # (Auto) Seg Neutrophils % Lymphocytes % (Manual) Seg Neutrophils # Seg Neutrophils # Man Lymphocytes # (Manual) D-Dimer POC ABG pCO2 POC ABG pO2 ABG Hemoglobin ABG Oxyhemoglobin ABG Sodium ABG Potassium ABG Chloride ABG Glucose Sodium Chloride Carbon Dioxide BUN Creatinine Glucose POC Glucose 160 H 168 H 111 H Calcium Magnesium Ferritin Alkaline Phosphatase Lactate Dehydrogenase Total Creatine Kinase CK-MB (CK-2) C-Reactive Protein Total Protein Albumin Triglycerides Arterial Blood Glucose Arterial Blood Ionized Calcium Coronavirus (PCR) SARS-CoV-2 IgG Ab 08/08/20 08/08/20 08/08/20 04:41 05:13 11:57 WBC RBC Hgb Hct MCV MCH MCHC RDW Plt Count Lymph % (Auto) Lymph # (Auto) Seg Neutrophils % Lymphocytes % (Manual) Seg Neutrophils # Seg Neutrophils # Man Lymphocytes # (Manual) D-Dimer POC ABG pCO2 63.1 H POC ABG pO2 70.7 L ABG Hemoglobin 11.5 L ABG Oxyhemoglobin 91.0 L ABG Sodium 148.5 H ABG Potassium ABG Chloride 108.0 H ABG Glucose 102 H Sodium Chloride Carbon Dioxide BUN Creatinine Glucose POC Glucose 122 H 225 H Calcium Magnesium Ferritin Alkaline Phosphatase Lactate Dehydrogenase Total Creatine Kinase CK-MB (CK-2) C-Reactive Protein Total Protein Albumin Triglycerides Arterial Blood Glucose 102 H Arterial Blood Ionized Calcium Coronavirus (PCR) SARS-CoV-2 IgG Ab 08/08/20 08/08/20 08/09/20 17:16 23:06 05:22 WBC RBC Hgb Hct MCV MCH MCHC RDW Plt Count Lymph % (Auto) Lymph # (Auto) Seg Neutrophils % Lymphocytes % (Manual) Seg Neutrophils # Seg Neutrophils # Man Lymphocytes # (Manual) D-Dimer POC ABG pCO2 POC ABG pO2 ABG Hemoglobin ABG Oxyhemoglobin ABG Sodium ABG Potassium ABG Chloride ABG Glucose Sodium Chloride Carbon Dioxide BUN Creatinine Glucose POC Glucose 188 H 129 H 112 H Calcium Magnesium Ferritin Alkaline Phosphatase Lactate Dehydrogenase Total Creatine Kinase CK-MB (CK-2) C-Reactive Protein Total Protein Albumin Triglycerides Arterial Blood Glucose Arterial Blood Ionized Calcium Coronavirus (PCR) SARS-CoV-2 IgG Ab 08/09/20 08/09/20 08/09/20 05:44 06:49 11:56 WBC RBC Hgb Hct MCV MCH MCHC RDW Plt Count Lymph % (Auto) Lymph # (Auto) Seg Neutrophils % Lymphocytes % (Manual) Seg Neutrophils # Seg Neutrophils # Man Lymphocytes # (Manual) D-Dimer POC ABG pCO2 67.9 H POC ABG pO2 73.4 L ABG Hemoglobin 10.8 L ABG Oxyhemoglobin 92.7 L ABG Sodium 146.4 H ABG Potassium ABG Chloride ABG Glucose 165 H Sodium 151 H Chloride 108.8 H Carbon Dioxide 39 H BUN 32 H Creatinine 0.6 L Glucose 189 H POC Glucose 217 H Calcium 8.1 L Magnesium Ferritin Alkaline Phosphatase Lactate Dehydrogenase Total Creatine Kinase CK-MB (CK-2) C-Reactive Protein Total Protein Albumin Triglycerides Arterial Blood Glucose 165 H Arterial Blood Ionized Calcium Coronavirus (PCR) SARS-CoV-2 IgG Ab
--- NOTE | 2020-08-09 16:01 | Progress Note ---
Assessment and Plan Assessment and plan: 60 YO Male HD #23 with acute hypoxemic respiratory failure, bilateral pneumonia secondary to coronavirus infection, cough who is currently intubated and on ventilatory support. Patient has poor prognosis. Patient currently unable to be weaned from ventilatory support. Patient has poor prognosis. No acute decompensation overnight. Closely monitor the patient and adjust management as needed Follow CTA chest, and inflammatory markers Consults recommendations noted and appreciated Plan of care reviewed with the patient and his nurse 07/20; patient is severely hypoxemic, on high flow oxygen 40 L/100%/O2 sats 95 Elevated D-dimers, patient is severely hypoxemic, will check CTA chest to rule out PE Also consider lower extremity venous Doppler to rule out DVT 07/21: Patient remains on high flow oxygen however mild improvement from 40 L to 35 l Tolerating prone position, continue steroids remdesivir CTA chest negative for PE, lower extremity venous Doppler negative for DVT Consults recommendations noted and appreciated Poor prognosis, patient is aware 07/22/2020; patient feels slightly better remains on high flow oxygen however lower than yesterday 35 L/95% /O2 sat 94% 07/21/2020 advised the patient to rest in prone position as tolerated Home oxygen evaluation 07/23/2020; remains on high flow oxygen, continue steroids remdesivir, prone position and comfort care Patient is critically ill with very poor prognosis and prolonged hypoxemia on high flow oxygen Plan of care reviewed with the patient and his nurse 07/24/2020; patient was severely hypoxemic rapid response called oxygen settings adjusted patient is currently better, requiring high flow oxygen right from the day he was admitted, poor prognosis, discussed with patient's 07/25/2020; patient remains on high flow oxygen in mild distress, overall prognosis poor I discussed with , and family friend physician extensively yesterday Poor prognosis continue current management 07/26/2020; patient remains on high flow oxygen 40 L/100%/95% O2 sat +100% nonrebreather Patient is critically ill, poor prognosis, ID pulmonary following 07/27/2020; patient remains on high flow oxygen 40 L/100%/[address] 100% nonrebreather Very poor prognosis, patient and family aware Pulmonary recommendations noted and appreciated 07/28/2020; patient remains critically ill, remains dependent on high flow oxygen 40 L +100% nonrebreather Very poor prognosis. 07/29/2020 Remains critically ill On high flow oxygen 07/30/2020 On high flow oxygen Is critically ill 07/31/2020 On high flow oxygen Critically ill 08/01/2020 on high flow oxygen Critically ill 08/02/2020 On Vent Weaning in progress 08/03/20 On Vent Weaning in progress 08/04/20 On vent Weaning in progress 08/05/20 Did not increase PEEP yesterday. PaO2 improved on own. Will wean FiO2 down today for sats >88%. Hold on proning for now. Continue steroids. Needs better rate control. Most likely sinus tach from hypoxemia, 08/08: Patient remains on full ventilatory support, critically ill, Proninng per Russian Language Professor. Down to 60% oxygen FIO2. PEEP Lasix 20mg IV x 1 today, Consider changing to full dose anticoagulation. Discussed with Russian Language Professor. Check Osmolality. Monitor Plt considering Lovenox Spoke with extensively and sister. 08/09; Continue supportive care, No significant clinical change, monitor for fever, continue pronining. --Acute hypoxc respiratory failure on Vent Current Visit: Yes Status: Acute Plan to address problem: Weaning in progress -- Hypernatremia increase water intake --COVID-19 positive Continue contact and droplet isolation, --Elevated D-dimers; CTA chest negative for PE, mild pulmonary edema, -- Pneumonia Current Visit: Yes Status: Acute Plan to address problem: Off antibiotics --Severe protein calorie Malnutrition Lead Recreation Assistant consult -- Throbocytopenia -- Acute Metabolic Encephalopathy ---DVT prophylaxis Current Visit: Yes Status: Acute Plan to address problem: Patient placed on subcutaneous Lovenox. -- Full code status Current Visit: Yes Status: Acute Plan to address problem: Patient is a full code. Advance care planning Current Visit: Yes Status: Acute Plan to address problem: Disease education conducted, patient is full code, patient has poor prognosis. Prognosis discussed. +30 minutes. The high probability of a clinically significant, sudden or life threatening deterioration of the [cardiac, pulmonary, neuro] system(s) required my full and direct attention, intervention and personal management. The aggregate critical care time was [45] minutes. This time is in addition to time spent performing reported procedures but includes the following: [x] Data Review and interpretation [x] Patient assessment and monitoring of vital signs [x] Documentation [x] Medication orders and management History Interval history: Patient seen and examined, FIO2 down to 55%, prognosis remains poor Hospitalist Physical - Physical exam Narrative exam: General appearance: Present:on full ventilatory support - EENT Eyes: Present: miosis ENT: Not following commands - Neck Neck: Present: supple - Respiratory Respiratory effort: labored Respiratory: bilateral: diminished, rhonchi - Cardiovascular Rhythm: regular Heart Sounds: Present: S1 & S2 - Extremities Extremities: no ischemia Peripheral Pulses: within normal limits - Abdominal General gastrointestinal: soft, non-tender, non-distended - Integumentary Integumentary: Present: dry - Psychiatric Psychiatric: no appropriate mood/affect, no intact judgment & insight, no memory intact - Neurologic Neurologic: CNII-XII intact, no gait normal - Constitutional Vitals: Temp Pulse Resp BP Pulse Ox 97.6 F 102 H 30 H 136/74 96 08/09/20 03:38 08/09/20 15:18 08/09/20 13:00 08/09/20 15:18 08/09/20 15:18 General appearance: Present: no acute distress, well-nourished HEART Score - HEART Score Troponin: Troponin T 0.018 ng/mL (0.00-0.029) 07/30/20 10:33 Results - Labs CBC & Chem 7: 08/07/20 04:00 08/10/20 05:00 Labs: Laboratory Last Values WBC 10.9 K/mm3 (4.5-11.0) 08/07/20 04:00 RBC 3.59 M/mm3 (3.65-5.03) L 08/07/20 04:00 Hgb 11.3 gm/dl (11.8-15.2) L 08/07/20 04:00 Hct 35.0 % (35.5-45.6) L 08/07/20 04:00 MCV 97 fl (84-94) H 08/07/20 04:00 MCH 32 pg (28-32) 08/07/20 04:00 MCHC 32 % (32-34) 08/07/20 04:00 RDW 13.5 % (13.2-15.2) 08/07/20 04:00 Plt Count 103 K/mm3 (140-440) L 08/07/20 04:00 Lymph % (Auto) 11.5 % (13.4-35.0) L 08/07/20 04:00 [place] % (Auto) 3.2 % (0.0-7.3) 08/07/20 04:00 Eos % (Auto) 2.1 % (0.0-4.3) 08/07/20 04:00 Baso % (Auto) 0.3 % (0.0-1.8) 08/07/20 04:00 Lymph # (Auto) 1.3 K/mm3 (1.2-5.4) 08/07/20 04:00 [place] # (Auto) 0.3 K/mm3 (0.0-0.8) 08/07/20 04:00 Eos # (Auto) 0.2 K/mm3 (0.0-0.4) 08/07/20 04:00 Baso # (Auto) 0.0 K/mm3 (0.0-0.1) 08/07/20 04:00 Add Manual Diff Complete 07/18/20 04:31 Total Counted 100 07/18/20 04:31 Seg Neutrophils % 82.9 % (40.0-70.0) H 08/07/20 04:00 Lymphocytes % (Manual) 5.0 % (13.4-35.0) L 07/18/20 04:31 Monocytes % (Manual) 3.0 % (0.0-7.3) 07/18/20 04:31 Nucleated RBC % Not Reportable 07/18/20 04:31 Seg Neutrophils # 9.0 K/mm3 (1.8-7.7) H 08/07/20 04:00 Seg Neutrophils # Man 8.1 K/mm3 (1.8-7.7) H 07/18/20 04:31 Band Neutrophils # 0.0 K/mm3 07/18/20 04:31 Lymphocytes # (Manual) 0.4 K/mm3 (1.2-5.4) L 07/18/20 04:31 Abs React Lymphs (Man) 0.0 K/mm3 07/18/20 04:31 Monocytes # (Manual) 0.3 K/mm3 (0.0-0.8) 07/18/20 04:31 Eosinophils # (Manual) 0.0 K/mm3 (0.0-0.4) 07/18/20 04:31 Basophils # (Manual) 0.0 K/mm3 (0.0-0.1) 07/18/20 04:31 Metamyelocytes # 0.0 K/mm3 07/18/20 04:31 Myelocytes # 0.0 K/mm3 07/18/20 04:31 Promyelocytes # 0.0 K/mm3 07/18/20 04:31 Blast Cells # 0.0 K/mm3 07/18/20 04:31 WBC Morphology Not Reportable 07/18/20 04:31 Hypersegmented Neuts Not Reportable 07/18/20 04:31 Hyposegmented Neuts Not Reportable 07/18/20 04:31 Hypogranular Neuts Not Reportable 07/18/20 04:31 Smudge Cells Not Reportable 07/18/20 04:31 Toxic Granulation Not Reportable 07/18/20 04:31 Toxic Vacuolation Not Reportable 07/18/20 04:31 Dohle Bodies Not Reportable 07/18/20 04:31 Pelger-Huet Anomaly Not Reportable 07/18/20 04:31 Cheri Rods Not Reportable 07/18/20 04:31 Platelet Estimate Consistent w auto 07/18/20 04:31 Clumped Platelets Not Reportable 07/18/20 04:31 Plt Clumps, EDTA Not Reportable 07/18/20 04:31 Large Platelets Not Reportable 07/18/20 04:31 Giant Platelets Not Reportable 07/18/20 04:31 Platelet Satelliting Not Reportable 07/18/20 04:31 Plt Morphology Comment Not Reportable 07/18/20 04:31 RBC Morphology Not Reportable 07/18/20 04:31 Dimorphic RBCs Not Reportable 07/18/20 04:31 Polychromasia Not Reportable 07/18/20 04:31 Hypochromasia Not Reportable 07/18/20 04:31 Poikilocytosis Not Reportable 07/18/20 04:31 Anisocytosis 1+ 07/18/20 04:31 Microcytosis Not Reportable 07/18/20 04:31 Macrocytosis Not Reportable 07/18/20 04:31 Spherocytes Not Reportable 07/18/20 04:31 Pappenheimer Bodies Not Reportable 07/18/20 04:31 Sickle Cells Not Reportable 07/18/20 04:31 Target Cells Not Reportable 07/18/20 04:31 Tear Drop Cells Not Reportable 07/18/20 04:31 Ovalocytes Not Reportable 07/18/20 04:31 Helmet Cells Not Reportable 07/18/20 04:31 [place] Bodies Not Reportable 07/18/20 04:31 Delong Rings Not Reportable 07/18/20 04:31 Jose Enrique Cells Not Reportable 07/18/20 04:31 Bite Cells Not Reportable 07/18/20 04:31 Crenated Cell Not Reportable 07/18/20 04:31 Elliptocytes Not Reportable 07/18/20 04:31 Acanthocytes (Spur) Not Reportable 07/18/20 04:31 Rouleaux Not Reportable 07/18/20 04:31 Hemoglobin C Crystals Not Reportable 07/18/20 04:31 Schistocytes Not Reportable 07/18/20 04:31 Malaria parasites Not Reportable 07/18/20 04:31 Wilfredo Bodies Not Reportable 07/18/20 04:31 Hem Pathologist Commnt No 07/18/20 04:31 PT 13.7 Sec. (12.2-14.9) 07/18/20 04:31 INR 1.06 (0.87-1.13) 07/18/20 04:31 D-Dimer > 12781 ng/mlDDU (0-234) H 07/26/20 10:07 ABG pH 7.358 (7.320-7.450) 08/09/20 05:44 POC ABG pCO2 67.9 mmHg (32.0-48.0) H 08/09/20 05:44 POC ABG pO2 73.4 mmHg (83-108) L 08/09/20 05:44 POC ABG HCO3 37.3 08/09/20 05:44 POC ABG Base Excess 9.8 08/09/20 05:44 ABG Hemoglobin 10.8 (12.0-17.5) L 08/09/20 05:44 ABG Oxyhemoglobin 92.7 (94-98) L 08/09/20 05:44 ABG Methemoglobin 0.3 (0.0-1.5) 08/09/20 05:44 ABG Sodium 146.4 mmol/L (136.0-145.0) H 08/09/20 05:44 ABG Potassium 3.6 mmol/L (3.40-4.50) 08/09/20 05:44 ABG Chloride 107.0 mmol/L (98-107) 08/09/20 05:44 ABG Glucose 165 mg/dL (65-95) H 08/09/20 05:44 Carboxyhemoglobin 1 (0.5-1.5) 08/09/20 05:44 FiO2 55 08/09/20 05:44 Sodium 151 mmol/L (137-145) H 08/09/20 06:49 Potassium 4.0 mmol/L (3.6-5.0) 08/09/20 06:49 Chloride 108.8 mmol/L (98-107) H 08/09/20 06:49 Carbon Dioxide 39 mmol/L (22-30) H 08/09/20 06:49 Anion Gap 7 mmol/L 08/09/20 06:49 BUN 32 mg/dL (9-20) H 08/09/20 06:49 Creatinine 0.6 mg/dL (0.8-1.3) L 08/09/20 06:49 Estimated GFR > 60 ml/min 08/09/20 06:49 BUN/Creatinine Ratio 53 % 08/09/20 06:49 Glucose 189 mg/dL (75-100) H 08/09/20 06:49 POC Glucose 217 mg/dL (70-105) H 08/09/20 11:56 Osmolality 332 Mosm/kg 08/08/20 19:14 Calcium 8.1 mg/dL (8.4-10.2) L 08/09/20 06:49 Phosphorus 2.60 mg/dL (2.5-4.5) 08/08/20 12:40 Magnesium 2.20 mg/dL (1.7-2.3) 08/08/20 12:40 Ferritin 1079.0 ng/mL (30.0-300.0) H 07/26/20 10:07 Total Bilirubin 0.40 mg/dL (0.1-1.2) 08/07/20 04:00 Direct Bilirubin < 0.2 mg/dL (0-0.2) 07/22/20 04:31 Indirect Bilirubin 0.0 mg/dL 07/22/20 04:31 AST 21 units/L (5-40) 08/07/20 04:00 ALT 44 units/L (7-56) 08/07/20 04:00 Alkaline Phosphatase 99 units/L (35-129) 08/07/20 04:00 Lactate Dehydrogenase 708 units/L (91-180) H 07/26/20 10:07 Total Creatine Kinase 174 units/L (55-170) H 07/30/20 10:33 CK-MB (CK-2) 4.5 ng/mL (0.0-4.0) H 07/30/20 10:33 CK-MB (CK-2) Rel Index 2.5 (0-4) 07/30/20 10:33 Troponin T 0.018 ng/mL (0.00-0.029) 07/30/20 10:33 C-Reactive Protein 6.10 mg/dL (0.00-1.30) H 07/26/20 10:07 NT-Pro-B Natriuret Pep 290.3 pg/mL (0-900) 07/18/20 16:33 Total Protein 5.4 g/dL (6.3-8.2) L 08/07/20 04:00 Albumin 2.8 g/dL (3.9-5) L 08/07/20 04:00 Albumin/Globulin Ratio 1.1 % 08/07/20 04:00 Triglycerides 250 mg/dL (2-149) H 08/07/20 04:00 Procalcitonin 0.94 ng/mL (<0.15) 07/17/20 22:48 Arterial Blood Glucose 165 mg/dL (65-95) H 08/09/20 05:44 Arterial Blood Ionized Calcium 4.7 mg/dL (4.6-5.3) 08/09/20 05:44 Urine Color Yellow (Yellow) 08/02/20 11:30 Urine Turbidity Clear (Clear) 08/02/20 11:30 Urine pH 5.0 (5.0-7.0) 08/02/20 11:30 Ur Specific [place] 1.027 (1.003-1.030) 08/02/20 11:30 Urine Protein <15 mg/dl mg/dL (Negative) 08/02/20 11:30 Urine Glucose (UA) Neg mg/dL (Negative) 08/02/20 11:30 Urine Ketones Neg mg/dL (Negative) 08/02/20 11:30 Urine Blood Neg (Negative) 08/02/20 11:30 Urine Nitrite Neg (Negative) 08/02/20 11:30 Urine Bilirubin Neg (Negative) 08/02/20 11:30 Urine Urobilinogen < 2.0 mg/dL (<2.0) 08/02/20 11:30 Ur Leukocyte Esterase Neg (Negative) 08/02/20 11:30 Urine WBC (Auto) 1.0 /HPF (0.0-6.0) 08/02/20 11:30 Urine RBC (Auto) 3.0 /HPF (0.0-6.0) 08/02/20 11:30 Hyaline Casts 1 /LPF 08/02/20 11:30 Granular Casts 1 /LPF 08/02/20 11:30 Urine Mucus Few /HPF 08/02/20 11:30 Coronavirus (PCR) Positive (Negative) A 07/18/20 08:50 SARS-CoV-2 IgG Ab Reactive (NonReactive) A 07/21/20 05:24 [place]/IV: Voiding Method Indwelling Catheter IV Catheter Type [Left Upper PICC Line arm] IV Catheter Type [Left Hand] INT / Saline Lock IV Catheter Type [Left Wrist] INT / Saline Lock IV Catheter Type [Left INT / Saline Lock Antecubital] IV Catheter Type [Right Distal INT / Saline Lock Port Hand] Active Medications - Current Medications Current Medications: Generic Name Dose Route Start Last Admin Trade Name Freq PRN Reason Stop Dose Admin Acetaminophen 650 mg 07/17/20 22:21 08/06/20 13:14 Acetaminophen 325 Mg Tab PO 650 mg Q4H PRN Administration Pain MILD(1-3)/Fever >100.5/AWAD Albuterol 2.5 mg 07/18/20 16:14 07/18/20 19:45 Albuterol 2.5 Mg/3 Ml Nebu IH 2.5 mg Q4HRT PRN Administration Shortness Of Breath Lipase/Protease/Amylase 1 each 07/31/20 12:23 Lipase 10,500/Protease 25,000/Amylase 43,750 (Units) Dr Olson FEEDTUBE PRN PRN For Clogged Feeding Tube Ascorbic Acid 1,000 mg 08/08/20 22:00 08/09/20 09:22 Ascorbic Acid 500 Mg Tab PO 1,000 mg BID SHERON Administration Cholecalciferol 5,000 unit 08/08/20 19:00 08/09/20 09:30 Cholecalciferol (Vit D3) 5,000 Unit Tab PO 5,000 unit DAILY SHERON Administration Dexamethasone 6 mg 07/31/20 11:00 08/09/20 09:21 Dexamethasone 4 Mg/Ml Vial IV 6 mg Q24HR SHERON Administration Dextrose 50 ml 08/06/20 13:14 Dextrose 50% In Water (25gm) 50 Ml Syringe IV Q30MIN PRN Hypoglycemia Protocol Enoxaparin Sodium 90 mg 08/08/20 22:00 08/09/20 09:22 Enoxaparin 100 Mg/1 Ml Inj 1 mg/kg (90 mg) 90 mg SUB-Q Administration Q12HR SHERON Protocol Famotidine 20 mg 08/01/20 10:00 08/09/20 09:24 Famotidine 20 Mg Tab PO 20 mg BID SHERON Administration Fentanyl 50 mcg 07/31/20 11:00 08/09/20 10:30 Fentanyl 100 Mcg/2 Ml Inj IV 50 mcg Q10MIN PRN Administration ANALGESIA Hydrophilic Ointment 1 applic 07/31/20 11:00 Lip Therapy Vaseline TP Q2H PRN Dry Lips Propofol 1,000 mg in 100 mls @ 2.658 mls/hr 07/31/20 08:00 08/09/20 13:24 Diprivan 10 Mg/Ml IV 35 mcg/kg/min TITR SHERON 18.606 mls/hr Administration Protocol 5 MCG/KG/MIN Norepinephrine 4 mg in 250 mls @ 7.5 mls/hr 07/31/20 09:00 08/01/20 02:37 Levophed Drip 4 Mg/Ns 250 Ml IV 0 mcg/min TITR SHERON 0 mls/hr Titration Protocol 2 MCG/MIN Fentanyl Citrate 2,000 mcg in 100 mls @ 4.43 mls/hr 07/31/20 11:00 08/09/20 13:22 Fentanyl Drip Premix IV 4 mcg/kg/hr TITR SHERON 17.72 mls/hr Administration Protocol 1 MCG/KG/HR Dextrose 1,000 mls @ 50 mls/hr 08/09/20 13:00 08/09/20 13:26 D5w IV 50 mls/hr DIRECT SHERON Administration Insulin Human Lispro 0 unit 08/07/20 00:00 08/09/20 12:34 Insulin Lispro 100 Unit/Ml Vial 3 Ml SUB-Q 3 unit Q6HR SHERON Administration Protocol Lorazepam 2 mg 08/08/20 11:36 08/08/20 12:00 Lorazepam 2 Mg/Ml Vial IV 2 mg Q4H PRN Administration Agitation Magnesium Hydroxide 30 ml 07/17/20 22:21 08/05/20 11:11 Magnesium Hydroxide (Mom) Oral Liqd Udc PO 30 ml Q4H PRN Administration Constipation Multi-Ingred Cream/Lotion/Oil/Oint 1 applic 07/31/20 10:55 Mineral Oil/Petrolatum, White Ophth Oint 3.5 Gm OU Q4H PRN Dry Eye(s) Ondansetron HCl 4 mg 07/17/20 22:21 07/20/20 02:21 Ondansetron 4 Mg/2 Ml Inj IV 4 mg Q8H PRN Administration Nausea And Vomiting Senna/Docusate Sodium 2 tab 08/03/20 11:00 08/09/20 09:21 Sennosides/Docusate Sodium 8.6/50 Mg Tab PO 2 tab BID SHEORN Administration Simple Syrup 15 ml 07/31/20 12:23 Simple Syrup 15 Ml FEEDTUBE PRN PRN Hypoglycemia Simple Syrup 30 ml 07/31/20 12:23 Simple Syrup 15 Ml FEEDTUBE PRN PRN Hypoglycemia Sodium Bicarbonate 325 mg 07/31/20 12:23 Sodium Bicarbonate 325 Mg Tab FEEDTUBE PRN PRN For Clogged Feeding Tube Sodium Chloride 10 ml 07/17/20 22:01 07/17/20 22:13 Sodium Chloride 0.9% 10 Ml Flush Syringe IV 10 ml PRN PRN Administration LINE FLUSH Sodium Chloride 10 ml 07/18/20 10:00 08/09/20 09:25 Sodium Chloride 0.9% 10 Ml Flush Syringe IV 10 ml BID SHERON Administration Trazodone HCl 50 mg 07/30/20 22:00 08/08/20 21:00 Trazodone 50 Mg Tab PO 50 mg QHS SHERON Administration Zinc Sulfate 220 mg 08/08/20 19:00 08/09/20 09:22 Zinc Sulfate 220 Mg Cap PO 220 mg QDAY SHERON Administration Nutrition/Malnutrition Assess - Dietary Evaluation Nutrition/Malnutrition Findings: Nutrition Notes Start: 07/23/20 13:19 Freq: Status: Active Protocol: Document 08/09/20 13:07 AT (Rec: 08/09/20 13:53 AT [email or web address]) Co-Sign 08/09/20 13:07 NHALL Nutrition Notes Initial or Follow up Reassessment Current Diagnosis Respiratory Failure Other Pertinent Diagnosis COVID-19 (+), pneu, prerenal azotemia Current Diet Vital AF 1.2 at 70 mL/hr Labs/Tests Na 151 BUN 32 Cr 0.6 BG 189 Pertinent Medications Vit C Vit D3 Decadron Levophed Propofol at 2.658 mL/hr (70 kcal) D5W started today Height 5 ft 11 in Weight 87.1 kg [place] Body Weight (kg) 78.18 BMI 26.7 Weight change and time frame Wt change noted (2.89% wt loss x 3 days. Weight Status Overweight Subjective/Other Information Follow-up for TF tolerance and Na labs. Per RN, pt is tolerating TF without issue. Pt remains on vent. Percent of energy/protein needs met: 97%/86% Burn Absent Trauma Absent Difficulty In Swallowing Current % PO Negligible Minimum of two criteria Yes Energy Intake (severe) < or equal to 50% Estimated Energy Requirement > or equal to 5 days Fluid Accumulation Mild (non-severe) Reduced Biological Engineer Strength Measurably Reduced (severe) #2 Nutrition Diagnosis Malnutrition Etiology chronic illness As Evidenced by Signs and Symptoms facial fluid accumulation and measurably reduced rivet maker strength. #1 Nutrition Diagnosis Inadequate oral intake Diagnosis Progress(for reassessment Continues documentation) Is patient on ventilator? Yes Is Patient Ambulatory and/or Out of Bed No REE-([facility]-confined to bed) 2053.364 Calculation Used for Recommendations [facility] Additional Notes Pro needs 1.2-2g/k-174g/ day Fluid needs 1ml/kcal Nutrition Intervention Change Diet Order: Continue TF Nutrition Support: Vital AF 1.2 at 70ml/hr with 300ml water flush q4h until hypernatremia resolved; then 115ml q4h. When pronin hr proned: Vital AF 1.2 at 20 ml/hr, flush 100 ml q4h for hypernatremia, or per MD; then 50 ml q4h once resolved. 12 hr supine: Vital AF 1.2 at 120 ml/hr, flush 350 ml q4h for hypernatremia, or per MD; then 180 q4h once resolved. Kcal 2,016 Protein (gm) 126 Fluid (mL) 1,362 Goal #1 Continued TF tolerance Goal #2 Continue to meet at least 75% of estimated energy and protein needs via TF. Anticipated Discharge Needs: Unable to determine at this time Follow-Up By: 08/12/20 Additional Comments F/U for Na labs, water flush, prone status, and TF tolerance
[2020-08-09] MEDS: traZODone 50 MG TAB PO SCH (22:32)
[2020-08-10] MEDS: INSULIN LISPRO 100 UNIT/ML VIAL 3 mL SUB-Q SCH ×4 (00:16→18:10)
[2020-08-10] MEDS: fentaNYL DRIP Premix 2,000 MCG/100 ML BAG IV SCH ×4 (03:59→22:29)
[2020-08-10 05:19] LABS: Blood Urea Nitrogen 25 mg/dL (9-20); Calcium 6.3 mg/dL (8.4-10.2); Hemolysis Index 22
[2020-08-10 05:29] LABS: BUN/Creatinine Ratio 50
[2020-08-10] MEDS: DEXTROSE 5% IN WATER 1,000 ML IV SCH (06:06)
[2020-08-10 08:44] LABS: Blood Urea Nitrogen 28 mg/dL (9-20); Calcium 6.6 mg/dL (8.4-10.2); Hemolysis Index 20
[2020-08-10 08:46] LABS: BUN/Creatinine Ratio 47
[2020-08-10] MEDS: FAMOTIDINE 20 MG TAB PO SCH ×2 (09:31→22:21)
[2020-08-10] MEDS: dexAMETHasone 4 MG/ML VIAL IV SCH (09:32)
[2020-08-10] MEDS: CHOLECALCIFEROL (VIT D3) 5,000 UNIT TAB PO SCH (09:32)
[2020-08-10] MEDS: SENNOSIDES/DOCUSATE SODIUM 8.6/50 MG TAB PO SCH ×2 (09:32→22:22)
[2020-08-10] MEDS: ZINC SULFATE 220 MG CAP PO SCH (09:32)
[2020-08-10] MEDS: ASCORBIC ACID 500 MG TAB PO SCH ×2 (09:32→22:22)
[2020-08-10] MEDS: ENOXAPARIN 100 MG/1 ML INJ SUB-Q SCH ×2 (09:32→22:21)
[2020-08-10] MEDS: fentaNYL 100 MCG/2 ML INJ IV PRN ×2 (09:58→18:08)
[2020-08-10] MEDS: MIDAZOLAM 100 MG in SODIUM CHLORIDE 0.9% 80 ML IV SCH (11:13)
--- NOTE | 2020-08-10 11:22 | Progress Note ---
Assessment and Plan 60 y/o male with chest discomfort, shortness of breath and abnormal CXR, COVID Positive 08/10/20: Day 9 of intubation. Unfortunately we must stop diprovan. Will place patient on Versed drip along with Fentanyl drip. Needs daily chemistries to assess renal function so that medication does not build up in patient system. All free water drips as well as flushes have been stopped. Will repeat Chemistry again today at 1400. Prone again today as well. Wean FiO2 for sats >88%. If able to speak with family, would I would tell them is that patient remains critically ill and we will continue to prone on a daily basis to help with oxygenation. I would also tell them we changed the sedation to prevent complications from higher levels. His renal function so far has remained stable which is a good thing but we will monitor it daily. Overall prognosis is still guarded to poor. 08/09/20: Day 8 of intubation. Continue proning as patient is tolerating this and making slow improvement. Continue PEEP at current settings. IMS will update family and I will discuss with IMS my medical opinion to be conveyed to them. 08/08/20: Prone again today. Same weaning parameters as yesterday. Will order labs for am. Calling now and see if she needs the other the family on the phone to update her. Prognosis still remains very guarded to poor. Asked RT to be as aggressive as possible with weaning FiO2. The unfortunately is not understanding how sick the patient is. I am trying my best to explain to her on a daily basis about this. But she does not accept when I tell her that he has remained stable. 08/07/20: Will prone again today. Wean FiO2 for sats >88% and PaO2 >55. Continue to monitor daily urine function and output. I again today explained the severity of the Mr. Suarez's clinical state as best I could using laymen terms. The other family member on the phone says that the communication has not bee consistent. The patient received Remdesivir while he was on the floor. He did get all 5 doses. I explained to the family that there is no indication for longer therapy or ID would have recommended. I also explained to them that I have extended the steroids to see if this would help beyond the current clinical recommendations. I also explained again that there is no cure for COVID 19 and that all measures are experimental as well as supportive. I also explained why he needs sedation while intubated and especially when proning. I am still not sure that they fully understand the extent of his illness but will continue to speak with them. Guarded prognosis. 08/06/20: Increase PEEP today to 16. Repeat gas tomorrow morning. Wean FiO2 today for sats >88%. Spoke with RT and PaO2 of 55 and greater are ok. will prone tonight for 12 hours at least. Remains in sinus tach. No labs drawn this am will order for stat this morning including BMP and Mag and Phos, CBC. Spoke with this am to update her. She is upset and asks to do everything for him that we can which I told her we would. I was also very honest about the severity of the disease which made her even more sad. 08/05/20: Did not increase PEEP yesterday. PaO2 improved on own. Will wean FiO2 down today for sats >88%. Hold on proning for now. Continue steroids. Needs better rate control. Most likely sinus tach from hypoxemia, but needs 12 lead if not done yet. Needs labs checked to assess electrolytes. Prognosis remains guarded to poor. Will attempt to reach today, if not today tomorrow. 08/04/20: Will increase PEEP to 16 today. If no improvement in the next 24 hours then will start proning patient tomorrow night. Continue steroids. Overall prognosis remains very guarded. 08/03/20: Chemistry not ordered, ordered today. Follow up blood cultures. Increased PEEP to 14 and RT will attempt to wean FiO2 back down to 50's. Will continue steroids at current dosing for now. He has already completed to original 10 days. Given some improvement, would like to continue. Overall prog nosis remains very guarded. 08/02/20: Check blood and urine cultures along with UA. Will check repeat CXR. Repeat Chemistry tomorrow. Hold on abx therapy for right now. Prognosis remains guarded. Continue steroids. Wean FiO2 for sats >88% 08/01/20: Overall prognosis here is very very guarded to poor. Will consider proning patient later today if not able to wean FiO2 any further this afternoon. Per CM, wants to come see patient which is very reasonable. Will continue steroids despite completing 10 days of this. 07/29/20: Supportive measures. Proning and wean as tolerated. 07/28/20: No new recommendations as of right now. When beds become available will move patient down stairs for closer monitoring. 07/27/20: Difficult situation. Patient appears to be not responding to any therapy. Steroids finished yesterday. Given the degree of inflammation will restart steroids for at least another 72-96 hours. In no improvement will stop. Not much else to do medical therapy [place]. Continue to keep patient net negative. Still remains high risk for intubation and if intubated given his current response to steroids, very high mortality. 07/26/20: No new recs for today. Patient really needs to try to prone as much as possible during the day and sleep prone at night. He remains a high risk for cardiac arrest and intubation. 07/25/20: very high risk for cardiac arrest from hypoxemia, but no available beds in ICU. Given COVID status, ideally would not like to use bipap but may have to in the event of continued desats. While proning does better and does not need t he mask along with HFNC. Encourage to prone as long as possible. 1. Continue steroids for 10 days. 2. Continue Remdesivir. Not a candidate for Convalescent Plasma 3. Please ask patient prone as tolerated during the day and sleep prone at night. Currently doing and tolerating 4. Agree with daily lasix but will need labs to monitor renal function and electrolytes. Needs labs for today. 5. Guarded prognosis to poor now with increasing oxygen requirement. May require intubation and high risk for cardiac arrest. CCT 31 Subjective Date of service: 08/10/20 Principal diagnosis: Acute respiratory failure with hypoxia, Covid pneumonia Interval history: No acute events. Tolerated proning last night but FiO2 is still the same. urine output continues to be adequate. Repeat labs were slightly better but still a large drop in Na. No evidence of cerebral edema clinically. Triglycerides are elevated so diprovan must be stopped. Objective Vital Signs - 12hr 08/09/20 08/09/20 08/09/20 23:30 23:31 23:45 Temperature Pulse Rate 107 H 107 H 108 H Pulse Rate [ From Monitor] Respiratory 21 26 H Rate Blood Pressure 108/67 108/67 108/67 O2 Sat by Pulse 97 96 97 Oximetry 08/10/20 08/10/20 08/10/20 00:00 00:15 00:30 Temperature 99.8 F H Pulse Rate 104 H 104 H 104 H Pulse Rate [ 108 H From Monitor] Respiratory 20 20 16 Rate Blood Pressure 119/65 119/65 111/66 O2 Sat by Pulse 96 97 97 Oximetry 08/10/20 08/10/20 08/10/20 00:45 01:00 01:15 Temperature Pulse Rate 99 H 100 H 105 H Pulse Rate [ From Monitor] Respiratory 21 21 21 Rate Blood Pressure 111/66 112/68 112/68 O2 Sat by Pulse 97 97 97 Oximetry 08/10/20 08/10/20 08/10/20 01:30 01:45 02:00 Temperature Pulse Rate 103 H 105 H 94 H Pulse Rate [ From Monitor] Respiratory 18 16 13 Rate Blood Pressure 117/66 117/66 115/72 O2 Sat by Pulse 98 97 97 Oximetry 08/10/20 08/10/20 08/10/20 02:15 02:31 02:45 Temperature Pulse Rate 86 89 97 H Pulse Rate [ From Monitor] Respiratory 27 H 17 17 Rate Blood Pressure 115/72 181/100 181/100 O2 Sat by Pulse 97 95 95 Oximetry 08/10/20 08/10/20 08/10/20 03:00 03:15 03:30 Temperature Pulse Rate 101 H 101 H 97 H Pulse Rate [ From Monitor] Respiratory 15 24 20 Rate Blood Pressure 145/73 145/73 125/70 O2 Sat by Pulse 95 96 95 Oximetry 08/10/20 08/10/20 08/10/20 03:45 04:00 04:03 Temperature 99.3 F Pulse Rate 105 H 95 H Pulse Rate [ 108 H From Monitor] Respiratory 27 H 30 H Rate Blood Pressure 125/70 112/64 O2 Sat by Pulse 96 95 Oximetry 08/10/20 08/10/20 08/10/20 04:15 04:16 04:30 Temperature Pulse Rate 93 H 97 H 99 H Pulse Rate [ From Monitor] Respiratory 30 H 30 H Rate Blood Pressure 112/64 112/64 115/63 O2 Sat by Pulse 96 97 97 Oximetry 08/10/20 08/10/20 08/10/20 04:45 05:00 05:15 Temperature Pulse Rate 93 H 89 93 H Pulse Rate [ From Monitor] Respiratory 30 H 29 H 20 Rate Blood Pressure 115/63 131/68 131/68 O2 Sat by Pulse 97 97 96 Oximetry 08/10/20 08/10/20 08/10/20 05:30 05:45 06:00 Temperature Pulse Rate 91 H 94 H 96 H Pulse Rate [ From Monitor] Respiratory 25 H 26 H 29 H Rate Blood Pressure 138/73 138/73 132/65 O2 Sat by Pulse 96 96 96 Oximetry 08/10/20 08/10/20 08/10/20 06:15 06:30 06:45 Temperature Pulse Rate 92 H 100 H 108 H Pulse Rate [ From Monitor] Respiratory 14 25 H 25 H Rate Blood Pressure 132/65 133/70 133/70 O2 Sat by Pulse 96 96 95 Oximetry 08/10/20 08/10/20 08/10/20 07:00 07:02 07:15 Temperature Pulse Rate 103 H 92 H 101 H Pulse Rate [ From Monitor] Respiratory 17 30 H Rate Blood Pressure 137/68 132/65 137/68 O2 Sat by Pulse 96 96 95 Oximetry 08/10/20 08/10/20 08/10/20 07:31 07:45 08:00 Temperature Pulse Rate 93 H 107 H 117 H Pulse Rate [ 108 H From Monitor] Respiratory 24 24 29 H Rate Blood Pressure 165/80 165/80 121/63 O2 Sat by Pulse 95 92 91 Oximetry 08/10/20 08/10/20 08:15 08:30 Temperature Pulse Rate 107 H 101 H Pulse Rate [ From Monitor] Respiratory 31 H 25 H Rate Blood Pressure 121/63 144/71 O2 Sat by Pulse 95 94 Oximetry Constitutional: other (orally intubated on vent) Eyes: non-icteric ENT: oropharynx moist Neck: supple Ascultation: Bilateral: diminished breath sounds, rhonchi Cardiovascular: regular rate and rhythm, other (tachycardia) Gastrointestinal: normoactive bowel sounds, soft, non-tender, non-distended Integumentary: normal Extremities: no cyanosis Neurologic: normal mental status, non-focal exam CBC and BMP: 08/07/20 04:00 08/10/20 08:00 ABG, PT/INR, D-dimer: ABG ABG pH 7.306 (7.320-7.450) L 08/10/20 05:09 POC ABG pCO2 75.1 mmHg (32.0-48.0) H 08/10/20 05:09 POC ABG pO2 76.1 mmHg (83-108) L 08/10/20 05:09 POC ABG HCO3 36.6 08/10/20 05:09 PT/INR, D-dimer PT 13.7 Sec. (12.2-14.9) 07/18/20 04:31 INR 1.06 (0.87-1.13) 07/18/20 04:31 D-Dimer > 26856 ng/mlDDU (0-234) H 07/26/20 10:07 Abnormal lab findings: Abnormal Labs 07/17/20 07/17/20 07/17/20 17:30 17:30 22:48 WBC RBC Hgb Hct MCV MCH MCHC 35 H RDW Plt Count Lymph % (Auto) 10.5 L Lymph # (Auto) 0.7 L Seg Neutrophils % 85.3 H Lymphocytes % (Manual) Seg Neutrophils # Seg Neutrophils # Man Lymphocytes # (Manual) D-Dimer 314.21 H ABG pH POC ABG pCO2 POC ABG pO2 ABG Hemoglobin ABG Oxyhemoglobin ABG Sodium ABG Potassium ABG Chloride ABG Glucose Sodium Potassium Chloride Carbon Dioxide BUN 1 L Creatinine Glucose 154 H POC Glucose Calcium Magnesium Ferritin Alkaline Phosphatase Lactate Dehydrogenase Total Creatine Kinase CK-MB (CK-2) C-Reactive Protein Total Protein Albumin Triglycerides Arterial Blood Glucose Arterial Blood Ionized Calcium Coronavirus (PCR) SARS-CoV-2 IgG Ab 07/17/20 07/17/20 07/18/20 22:48 22:48 04:31 WBC RBC Hgb Hct MCV MCH 33 H MCHC 35 H RDW 13.1 L Plt Count Lymph % (Auto) Lymph # (Auto) Seg Neutrophils % Lymphocytes % (Manual) 5.0 L Seg Neutrophils # Seg Neutrophils # Man 8.1 H Lymphocytes # (Manual) 0.4 L D-Dimer ABG pH POC ABG pCO2 POC ABG pO2 ABG Hemoglobin ABG Oxyhemoglobin ABG Sodium ABG Potassium ABG Chloride ABG Glucose Sodium Potassium Chloride Carbon Dioxide BUN Creatinine Glucose 124 H POC Glucose Calcium Magnesium Ferritin 889.3 H Alkaline Phosphatase Lactate Dehydrogenase 832 H Total Creatine Kinase CK-MB (CK-2) C-Reactive Protein 17.70 H Total Protein Albumin Triglycerides Arterial Blood Glucose Arterial Blood Ionized Calcium Coronavirus (PCR) SARS-CoV-2 IgG Ab 07/18/20 07/18/20 07/18/20 04:31 08:50 18:48 WBC RBC Hgb Hct MCV MCH MCHC RDW Plt Count Lymph % (Auto) Lymph # (Auto) Seg Neutrophils % Lymphocytes % (Manual) Seg Neutrophils # Seg Neutrophils # Man Lymphocytes # (Manual) D-Dimer 275.27 H ABG pH POC ABG pCO2 POC ABG pO2 ABG Hemoglobin ABG Oxyhemoglobin ABG Sodium ABG Potassium ABG Chloride ABG Glucose Sodium Potassium Chloride Carbon Dioxide 31 H D BUN 23 H Creatinine Glucose 143 H POC Glucose Calcium Magnesium Ferritin Alkaline Phosphatase Lactate Dehydrogenase Total Creatine Kinase CK-MB (CK-2) C-Reactive Protein Total Protein Albumin Triglycerides Arterial Blood Glucose Arterial Blood Ionized Calcium Coronavirus (PCR) Positive A SARS-CoV-2 IgG Ab 07/18/20 07/18/20 07/20/20 18:48 18:48 08:56 WBC RBC Hgb Hct MCV MCH MCHC RDW Plt Count Lymph % (Auto) Lymph # (Auto) Seg Neutrophils % Lymphocytes % (Manual) Seg Neutrophils # Seg Neutrophils # Man Lymphocytes # (Manual) D-Dimer ABG pH POC ABG pCO2 POC ABG pO2 ABG Hemoglobin ABG Oxyhemoglobin ABG Sodium ABG Potassium ABG Chloride ABG Glucose Sodium Potassium Chloride Carbon Dioxide BUN 22 H Creatinine Glucose 219 H POC Glucose Calcium Magnesium Ferritin 1164.0 H Alkaline Phosphatase Lactate Dehydrogenase 560 H 739 H Total Creatine Kinase CK-MB (CK-2) C-Reactive Protein 18.00 H 17.50 H Total Protein Albumin 3.0 L Triglycerides Arterial Blood Glucose Arterial Blood Ionized Calcium Coronavirus (PCR) SARS-CoV-2 IgG Ab 07/20/20 07/20/20 07/21/20 08:56 08:56 05:24 WBC RBC Hgb Hct MCV MCH MCHC RDW Plt Count Lymph % (Auto) Lymph # (Auto) Seg Neutrophils % Lymphocytes % (Manual) Seg Neutrophils # Seg Neutrophils # Man Lymphocytes # (Manual) D-Dimer 9523.70 H ABG pH POC ABG pCO2 POC ABG pO2 ABG Hemoglobin ABG Oxyhemoglobin ABG Sodium ABG Potassium ABG Chloride ABG Glucose Sodium Potassium Chloride Carbon Dioxide BUN Creatinine Glucose POC Glucose Calcium Magnesium Ferritin 1581.0 H Alkaline Phosphatase Lactate Dehydrogenase Total Creatine Kinase CK-MB (CK-2) C-Reactive Protein Total Protein Albumin Triglycerides Arterial Blood Glucose Arterial Blood Ionized Calcium Coronavirus (PCR) SARS-CoV-2 IgG Ab Reactive A 07/22/20 07/24/20 07/26/20 04:31 13:26 10:07 WBC RBC Hgb Hct MCV MCH MCHC RDW Plt Count Lymph % (Auto) Lymph # (Auto) Seg Neutrophils % Lymphocytes % (Manual) Seg Neutrophils # Seg Neutrophils # Man Lymphocytes # (Manual) D-Dimer > 16248 H ABG pH POC ABG pCO2 POC ABG pO2 ABG Hemoglobin ABG Oxyhemoglobin ABG Sodium ABG Potassium ABG Chloride ABG Glucose Sodium 146 H Potassium Chloride Carbon Dioxide 32 H BUN 28 H 26 H Creatinine Glucose 144 H 116 H POC Glucose Calcium 8.3 L Magnesium Ferritin Alkaline Phosphatase Lactate Dehydrogenase Total Creatine Kinase CK-MB (CK-2) C-Reactive Protein Total Protein Albumin 3.3 L Triglycerides Arterial Blood Glucose Arterial Blood Ionized Calcium Coronavirus (PCR) SARS-CoV-2 IgG Ab 07/26/20 07/26/20 07/27/20 10:07 10:07 19:45 WBC RBC Hgb Hct MCV MCH MCHC RDW Plt Count Lymph % (Auto) Lymph # (Auto) Seg Neutrophils % Lymphocytes % (Manual) Seg Neutrophils # Seg Neutrophils # Man Lymphocytes # (Manual) D-Dimer ABG pH POC ABG pCO2 POC ABG pO2 ABG Hemoglobin ABG Oxyhemoglobin ABG Sodium ABG Potassium ABG Chloride ABG Glucose Sodium Potassium Chloride 97.4 L Carbon Dioxide 33 H BUN 27 H Creatinine Glucose 175 H POC Glucose Calcium Magnesium Ferritin 1079.0 H Alkaline Phosphatase Lactate Dehydrogenase 708 H Total Creatine Kinase CK-MB (CK-2) C-Reactive Protein 6.10 H Total Protein Albumin Triglycerides Arterial Blood Glucose Arterial Blood Ionized Calcium Coronavirus (PCR) SARS-CoV-2 IgG Ab 07/29/20 07/30/20 07/30/20 02:09 10:33 11:54 WBC RBC Hgb Hct MCV MCH MCHC RDW Plt Count Lymph % (Auto) Lymph # (Auto) Seg Neutrophils % Lymphocytes % (Manual) Seg Neutrophils # Seg Neutrophils # Man Lymphocytes # (Manual) D-Dimer ABG pH POC ABG pCO2 POC ABG pO2 ABG Hemoglobin ABG Oxyhemoglobin ABG Sodium ABG Potassium ABG Chloride ABG Glucose Sodium Potassium Chloride Carbon Dioxide BUN Creatinine Glucose POC Glucose 183 H Calcium Magnesium 3.00 H Ferritin Alkaline Phosphatase Lactate Dehydrogenase Total Creatine Kinase 174 H CK-MB (CK-2) 4.5 H C-Reactive Protein Total Protein Albumin Triglycerides Arterial Blood Glucose Arterial Blood Ionized Calcium Coronavirus (PCR) SARS-CoV-2 IgG Ab 07/30/20 07/30/20 07/31/20 17:30 23:08 11:04 WBC RBC Hgb Hct MCV MCH MCHC RDW Plt Count Lymph % (Auto) Lymph # (Auto) Seg Neutrophils % Lymphocytes % (Manual) Seg Neutrophils # Seg Neutrophils # Man Lymphocytes # (Manual) D-Dimer ABG pH POC ABG pCO2 POC ABG pO2 ABG Hemoglobin ABG Oxyhemoglobin ABG Sodium ABG Potassium ABG Chloride ABG Glucose Sodium 151 H D Potassium Chloride 109.2 H Carbon Dioxide 32 H BUN 48 H Creatinine Glucose 165 H POC Glucose 199 H 194 H Calcium Magnesium Ferritin Alkaline Phosphatase 168 H Lactate Dehydrogenase Total Creatine Kinase CK-MB (CK-2) C-Reactive Protein Total Protein Albumin 3.1 L Triglycerides Arterial Blood Glucose Arterial Blood Ionized Calcium Coronavirus (PCR) SARS-CoV-2 IgG Ab 07/31/20 07/31/20 07/31/20 11:18 11:23 17:47 WBC RBC Hgb Hct MCV MCH MCHC RDW Plt Count Lymph % (Auto) Lymph # (Auto) Seg Neutrophils % Lymphocytes % (Manual) Seg Neutrophils # Seg Neutrophils # Man Lymphocytes # (Manual) D-Dimer ABG pH POC ABG pCO2 56.6 H POC ABG pO2 73.1 L ABG Hemoglobin ABG Oxyhemoglobin 92.1 L ABG Sodium ABG Potassium ABG Chloride 108.0 H ABG Glucose 169 H Sodium Potassium Chloride Carbon Dioxide BUN Creatinine Glucose POC Glucose 156 H 169 H Calcium Magnesium Ferritin Alkaline Phosphatase Lactate Dehydrogenase Total Creatine Kinase CK-MB (CK-2) C-Reactive Protein Total Protein Albumin Triglycerides Arterial Blood Glucose 169 H Arterial Blood Ionized Calcium Coronavirus (PCR) SARS-CoV-2 IgG Ab 07/31/20 07/31/20 07/31/20 20:58 23:18 23:55 WBC 19.8 H RBC Hgb Hct MCV 95 H MCH MCHC RDW 13.0 L Plt Count Lymph % (Auto) Lymph # (Auto) Seg Neutrophils % Lymphocytes % (Manual) Seg Neutrophils # Seg Neutrophils # Man Lymphocytes # (Manual) D-Dimer ABG pH POC ABG pCO2 POC ABG pO2 ABG Hemoglobin ABG Oxyhemoglobin ABG Sodium ABG Potassium ABG Chloride ABG Glucose Sodium Potassium Chloride Carbon Dioxide BUN Creatinine Glucose POC Glucose 293 H 211 H Calcium Magnesium Ferritin Alkaline Phosphatase Lactate Dehydrogenase Total Creatine Kinase CK-MB (CK-2) C-Reactive Protein Total Protein Albumin Triglycerides Arterial Blood Glucose Arterial Blood Ionized Calcium Coronavirus (PCR) SARS-CoV-2 IgG Ab 08/01/20 08/01/20 08/01/20 03:47 08:30 12:27 WBC RBC Hgb Hct MCV MCH MCHC RDW Plt Count Lymph % (Auto) Lymph # (Auto) Seg Neutrophils % Lymphocytes % (Manual) Seg Neutrophils # Seg Neutrophils # Man Lymphocytes # (Manual) D-Dimer ABG pH POC ABG pCO2 49.8 H POC ABG pO2 123.4 H ABG Hemoglobin ABG Oxyhemoglobin ABG Sodium ABG Potassium 4.6 H ABG Chloride 111.0 H ABG Glucose 130 H Sodium 154 H Potassium Chloride 115.1 H Carbon Dioxide 32 H BUN 49 H Creatinine Glucose 492 H POC Glucose 161 H Calcium 7.2 L D Magnesium Ferritin Alkaline Phosphatase Lactate Dehydrogenase Total Creatine Kinase CK-MB (CK-2) C-Reactive Protein Total Protein Albumin Triglycerides Arterial Blood Glucose 130 H Arterial Blood Ionized Calcium 4.5 L Coronavirus (PCR) SARS-CoV-2 IgG Ab 08/01/20 08/01/20 08/02/20 16:55 23:06 05:00 WBC RBC Hgb Hct MCV MCH MCHC RDW Plt Count Lymph % (Auto) Lymph # (Auto) Seg Neutrophils % Lymphocytes % (Manual) Seg Neutrophils # Seg Neutrophils # Man Lymphocytes # (Manual) D-Dimer ABG pH POC ABG pCO2 52.5 H POC ABG pO2 69.8 L ABG Hemoglobin ABG Oxyhemoglobin ABG Sodium 147.2 H ABG Potassium ABG Chloride 110.0 H ABG Glucose 177 H Sodium Potassium Chloride Carbon Dioxide BUN Creatinine Glucose POC Glucose 195 H 162 H Calcium Magnesium Ferritin Alkaline Phosphatase Lactate Dehydrogenase Total Creatine Kinase CK-MB (CK-2) C-Reactive Protein Total Protein Albumin Triglycerides Arterial Blood Glucose 177 H Arterial Blood Ionized Calcium Coronavirus (PCR) SARS-CoV-2 IgG Ab 08/02/20 08/02/20 08/02/20 05:01 12:05 17:13 WBC RBC Hgb Hct MCV MCH MCHC RDW Plt Count Lymph % (Auto) Lymph # (Auto) Seg Neutrophils % Lymphocytes % (Manual) Seg Neutrophils # Seg Neutrophils # Man Lymphocytes # (Manual) D-Dimer ABG pH POC ABG pCO2 POC ABG pO2 ABG Hemoglobin ABG Oxyhemoglobin ABG Sodium ABG Potassium ABG Chloride ABG Glucose Sodium Potassium Chloride Carbon Dioxide BUN Creatinine Glucose POC Glucose 146 H 166 H 209 H Calcium Magnesium Ferritin Alkaline Phosphatase Lactate Dehydrogenase Total Creatine Kinase CK-MB (CK-2) C-Reactive Protein Total Protein Albumin Triglycerides Arterial Blood Glucose Arterial Blood Ionized Calcium Coronavirus (PCR) SARS-CoV-2 IgG Ab 08/02/20 08/03/20 08/03/20 23:26 04:06 04:34 WBC RBC Hgb Hct MCV MCH MCHC RDW Plt Count Lymph % (Auto) Lymph # (Auto) Seg Neutrophils % Lymphocytes % (Manual) Seg Neutrophils # Seg Neutrophils # Man Lymphocytes # (Manual) D-Dimer ABG pH POC ABG pCO2 55.6 H POC ABG pO2 66.1 L ABG Hemoglobin 11.9 L ABG Oxyhemoglobin 91.1 L ABG Sodium 145.7 H ABG Potassium 4.8 H ABG Chloride 111.0 H ABG Glucose 195 H Sodium Potassium Chloride Carbon Dioxide BUN Creatinine Glucose POC Glucose 157 H Calcium Magnesium Ferritin Alkaline Phosphatase Lactate Dehydrogenase Total Creatine Kinase CK-MB (CK-2) C-Reactive Protein Total Protein Albumin Triglycerides 207 H Arterial Blood Glucose 195 H Arterial Blood Ionized Calcium Coronavirus (PCR) SARS-CoV-2 IgG Ab 08/03/20 08/03/20 08/03/20 05:00 11:55 17:15 WBC RBC Hgb Hct MCV MCH MCHC RDW Plt Count Lymph % (Auto) Lymph # (Auto) Seg Neutrophils % Lymphocytes % (Manual) Seg Neutrophils # Seg Neutrophils # Man Lymphocytes # (Manual) D-Dimer ABG pH POC ABG pCO2 POC ABG pO2 ABG Hemoglobin ABG Oxyhemoglobin ABG Sodium ABG Potassium ABG Chloride ABG Glucose Sodium Potassium Chloride Carbon Dioxide BUN Creatinine Glucose POC Glucose 179 H 173 H 217 H Calcium Magnesium Ferritin Alkaline Phosphatase Lactate Dehydrogenase Total Creatine Kinase CK-MB (CK-2) C-Reactive Protein Total Protein Albumin Triglycerides Arterial Blood Glucose Arterial Blood Ionized Calcium Coronavirus (PCR) SARS-CoV-2 IgG Ab 08/03/20 08/04/20 08/04/20 23:01 03:59 05:30 WBC RBC Hgb Hct MCV MCH MCHC RDW Plt Count Lymph % (Auto) Lymph # (Auto) Seg Neutrophils % Lymphocytes % (Manual) Seg Neutrophils # Seg Neutrophils # Man Lymphocytes # (Manual) D-Dimer ABG pH POC ABG pCO2 54.6 H POC ABG pO2 66.2 L ABG Hemoglobin 10.8 L ABG Oxyhemoglobin 91.5 L ABG Sodium ABG Potassium ABG Chloride 110.0 H ABG Glucose 201 H Sodium Potassium Chloride Carbon Dioxide BUN Creatinine Glucose POC Glucose 222 H 137 H Calcium Magnesium Ferritin Alkaline Phosphatase Lactate Dehydrogenase Total Creatine Kinase CK-MB (CK-2) C-Reactive Protein Total Protein Albumin Triglycerides Arterial Blood Glucose 201 H Arterial Blood Ionized Calcium Coronavirus (PCR) SARS-CoV-2 IgG Ab 08/04/20 08/04/20 08/04/20 06:57 11:50 17:29 WBC RBC Hgb Hct MCV MCH MCHC RDW Plt Count Lymph % (Auto) Lymph # (Auto) Seg Neutrophils % Lymphocytes % (Manual) Seg Neutrophils # Seg Neutrophils # Man Lymphocytes # (Manual) D-Dimer ABG pH POC ABG pCO2 POC ABG pO2 ABG Hemoglobin ABG Oxyhemoglobin ABG Sodium ABG Potassium ABG Chloride ABG Glucose Sodium 151 H Potassium Chloride 111.3 H Carbon Dioxide 36 H BUN 32 H Creatinine Glucose 160 H POC Glucose 158 H 180 H Calcium 8.2 L Magnesium 2.60 H Ferritin Alkaline Phosphatase Lactate Dehydrogenase Total Creatine Kinase CK-MB (CK-2) C-Reactive Protein Total Protein Albumin Triglycerides Arterial Blood Glucose Arterial Blood Ionized Calcium Coronavirus (PCR) SARS-CoV-2 IgG Ab 08/04/20 08/05/20 08/05/20 23:01 04:49 05:11 WBC RBC Hgb Hct MCV MCH MCHC RDW Plt Count Lymph % (Auto) Lymph # (Auto) Seg Neutrophils % Lymphocytes % (Manual) Seg Neutrophils # Seg Neutrophils # Man Lymphocytes # (Manual) D-Dimer ABG pH POC ABG pCO2 56.7 H POC ABG pO2 80.6 L ABG Hemoglobin 10.9 L ABG Oxyhemoglobin ABG Sodium 145.9 H ABG Potassium ABG Chloride 109.0 H ABG Glucose 160 H Sodium Potassium Chloride Carbon Dioxide BUN Creatinine Glucose POC Glucose 160 H 134 H Calcium Magnesium Ferritin Alkaline Phosphatase Lactate Dehydrogenase Total Creatine Kinase CK-MB (CK-2) C-Reactive Protein Total Protein Albumin Triglycerides Arterial Blood Glucose 160 H Arterial Blood Ionized Calcium Coronavirus (PCR) SARS-CoV-2 IgG Ab 08/05/20 08/05/2008/05/21 11:40 16:54 23:29 WBC RBC Hgb Hct MCV MCH MCHC RDW Plt Count Lymph % (Auto) Lymph # (Auto) Seg Neutrophils % Lymphocytes % (Manual) Seg Neutrophils # Seg Neutrophils # Man Lymphocytes # (Manual) D-Dimer ABG pH POC ABG pCO2 POC ABG pO2 ABG Hemoglobin ABG Oxyhemoglobin ABG Sodium ABG Potassium ABG Chloride ABG Glucose Sodium Potassium Chloride Carbon Dioxide BUN Creatinine Glucose POC Glucose 137 H 243 H 154 H Calcium Magnesium Ferritin Alkaline Phosphatase Lactate Dehydrogenase Total Creatine Kinase CK-MB (CK-2) C-Reactive Protein Total Protein Albumin Triglycerides Arterial Blood Glucose Arterial Blood Ionized Calcium Coronavirus (PCR) SARS-CoV-2 IgG Ab 08/06/20 08/06/20 08/06/20 05:24 06:00 08:59 WBC 14.1 H RBC Hgb 11.5 L Hct MCV 98 H MCH MCHC RDW Plt Count 107 L Lymph % (Auto) Lymph # (Auto) Seg Neutrophils % Lymphocytes % (Manual) Seg Neutrophils # Seg Neutrophils # Man Lymphocytes # (Manual) D-Dimer ABG pH POC ABG pCO2 58.9 H POC ABG pO2 53.0 L ABG Hemoglobin ABG Oxyhemoglobin 85.7 L ABG Sodium 148.4 H ABG Potassium 4.7 H ABG Chloride 109.0 H ABG Glucose 125 H Sodium Potassium Chloride Carbon Dioxide BUN Creatinine Glucose POC Glucose 122 H Calcium Magnesium Ferritin Alkaline Phosphatase Lactate Dehydrogenase Total Creatine Kinase CK-MB (CK-2) C-Reactive Protein Total Protein Albumin Triglycerides Arterial Blood Glucose 125 H Arterial Blood Ionized Calcium Coronavirus (PCR) SARS-CoV-2 IgG Ab 08/06/20 08/06/20 08/06/20 08:59 12:34 17:43 WBC RBC Hgb Hct MCV MCH MCHC RDW Plt Count Lymph % (Auto) Lymph # (Auto) Seg Neutrophils % Lymphocytes % (Manual) Seg Neutrophils # Seg Neutrophils # Man Lymphocytes # (Manual) D-Dimer ABG pH POC ABG pCO2 POC ABG pO2 ABG Hemoglobin ABG Oxyhemoglobin ABG Sodium ABG Potassium ABG Chloride ABG Glucose Sodium 151 H Potassium Chloride 110.7 H Carbon Dioxide 36 H BUN 29 H Creatinine 0.7 L Glucose 194 H POC Glucose 193 H 204 H Calcium Magnesium Ferritin Alkaline Phosphatase Lactate Dehydrogenase Total Creatine Kinase CK-MB (CK-2) C-Reactive Protein Total Protein Albumin Triglycerides Arterial Blood Glucose Arterial Blood Ionized Calcium Coronavirus (PCR) SARS-CoV-2 IgG Ab 08/06/20 08/07/20 08/07/20 23:25 04:00 04:00 WBC RBC 3.59 L Hgb 11.3 L Hct 35.0 L MCV 97 H MCH MCHC RDW Plt Count 103 L Lymph % (Auto) 11.5 L Lymph # (Auto) Seg Neutrophils % 82.9 H Lymphocytes % (Manual) Seg Neutrophils # 9.0 H Seg Neutrophils # Man Lymphocytes # (Manual) D-Dimer ABG pH POC ABG pCO2 POC ABG pO2 ABG Hemoglobin ABG Oxyhemoglobin ABG Sodium ABG Potassium ABG Chloride ABG Glucose Sodium 151 H Potassium Chloride 109.6 H Carbon Dioxide 34 H BUN 29 H Creatinine 0.5 L Glucose 134 H POC Glucose 150 H Calcium Magnesium Ferritin Alkaline Phosphatase Lactate Dehydrogenase Total Creatine Kinase CK-MB (CK-2) C-Reactive Protein Total Protein 5.4 L Albumin 2.8 L Triglycerides Arterial Blood Glucose Arterial Blood Ionized Calcium Coronavirus (PCR) SARS-CoV-2 IgG Ab 08/07/20 08/07/20 08/07/20 04:00 04:55 05:16 WBC RBC Hgb Hct MCV MCH MCHC RDW Plt Count Lymph % (Auto) Lymph # (Auto) Seg Neutrophils % Lymphocytes % (Manual) Seg Neutrophils # Seg Neutrophils # Man Lymphocytes # (Manual) D-Dimer ABG pH POC ABG pCO2 62.8 H POC ABG pO2 75.0 L ABG Hemoglobin 11.9 L ABG Oxyhemoglobin 93.2 L ABG Sodium 148.2 H ABG Potassium ABG Chloride 108.0 H ABG Glucose 150 H Sodium Potassium Chloride Carbon Dioxide BUN Creatinine Glucose POC Glucose 116 H Calcium Magnesium Ferritin Alkaline Phosphatase Lactate Dehydrogenase Total Creatine Kinase CK-MB (CK-2) C-Reactive Protein Total Protein Albumin Triglycerides 250 H Arterial Blood Glucose 150 H Arterial Blood Ionized Calcium Coronavirus (PCR) SARS-CoV-2 IgG Ab 08/07/20 08/07/20 08/07/20 12:36 17:46 23:09 WBC RBC Hgb Hct MCV MCH MCHC RDW Plt Count Lymph % (Auto) Lymph # (Auto) Seg Neutrophils % Lymphocytes % (Manual) Seg Neutrophils # Seg Neutrophils # Man Lymphocytes # (Manual) D-Dimer ABG pH POC ABG pCO2 POC ABG pO2 ABG Hemoglobin ABG Oxyhemoglobin ABG Sodium ABG Potassium ABG Chloride ABG Glucose Sodium Potassium Chloride Carbon Dioxide BUN Creatinine Glucose POC Glucose 160 H 168 H 111 H Calcium Magnesium Ferritin Alkaline Phosphatase Lactate Dehydrogenase Total Creatine Kinase CK-MB (CK-2) C-Reactive Protein Total Protein Albumin Triglycerides Arterial Blood Glucose Arterial Blood Ionized Calcium Coronavirus (PCR) SARS-CoV-2 IgG Ab 08/08/20 08/08/20 08/08/20 04:41 05:13 11:57 WBC RBC Hgb Hct MCV MCH MCHC RDW Plt Count Lymph % (Auto) Lymph # (Auto) Seg Neutrophils % Lymphocytes % (Manual) Seg Neutrophils # Seg Neutrophils # Man Lymphocytes # (Manual) D-Dimer ABG pH POC ABG pCO2 63.1 H POC ABG pO2 70.7 L ABG Hemoglobin 11.5 L ABG Oxyhemoglobin 91.0 L ABG Sodium 148.5 H ABG Potassium ABG Chloride 108.0 H ABG Glucose 102 H Sodium Potassium Chloride Carbon Dioxide BUN Creatinine Glucose POC Glucose 122 H 225 H Calcium Magnesium Ferritin Alkaline Phosphatase Lactate Dehydrogenase Total Creatine Kinase CK-MB (CK-2) C-Reactive Protein Total Protein Albumin Triglycerides Arterial Blood Glucose 102 H Arterial Blood Ionized Calcium Coronavirus (PCR) SARS-CoV-2 IgG Ab 08/08/20 08/08/20 08/09/20 17:16 23:06 05:22 WBC RBC Hgb Hct MCV MCH MCHC RDW Plt Count Lymph % (Auto) Lymph # (Auto) Seg Neutrophils % Lymphocytes % (Manual) Seg Neutrophils # Seg Neutrophils # Man Lymphocytes # (Manual) D-Dimer ABG pH POC ABG pCO2 POC ABG pO2 ABG Hemoglobin ABG Oxyhemoglobin ABG Sodium ABG Potassium ABG Chloride ABG Glucose Sodium Potassium Chloride Carbon Dioxide BUN Creatinine Glucose POC Glucose 188 H 129 H 112 H Calcium Magnesium Ferritin Alkaline Phosphatase Lactate Dehydrogenase Total Creatine Kinase CK-MB (CK-2) C-Reactive Protein Total Protein Albumin Triglycerides Arterial Blood Glucose Arterial Blood Ionized Calcium Coronavirus (PCR) SARS-CoV-2 IgG Ab 08/09/20 08/09/20 08/09/20 05:44 06:49 11:56 WBC RBC Hgb Hct MCV MCH MCHC RDW Plt Count Lymph % (Auto) Lymph # (Auto) Seg Neutrophils % Lymphocytes % (Manual) Seg Neutrophils # Seg Neutrophils # Man Lymphocytes # (Manual) D-Dimer ABG pH POC ABG pCO2 67.9 H POC ABG pO2 73.4 L ABG Hemoglobin 10.8 L ABG Oxyhemoglobin 92.7 L ABG Sodium 146.4 H ABG Potassium ABG Chloride ABG Glucose 165 H Sodium 151 H Potassium Chloride 108.8 H Carbon Dioxide 39 H BUN 32 H Creatinine 0.6 L Glucose 189 H POC Glucose 217 H Calcium 8.1 L Magnesium Ferritin Alkaline Phosphatase Lactate Dehydrogenase Total Creatine Kinase CK-MB (CK-2) C-Reactive Protein Total Protein Albumin Triglycerides Arterial Blood Glucose 165 H Arterial Blood Ionized Calcium Coronavirus (PCR) SARS-CoV-2 IgG Ab 08/09/20 08/09/20 08/10/20 17:01 23:35 05:00 WBC RBC Hgb Hct MCV MCH MCHC RDW Plt Count Lymph % (Auto) Lymph # (Auto) Seg Neutrophils % Lymphocytes % (Manual) Seg Neutrophils # Seg Neutrophils # Man Lymphocytes # (Manual) D-Dimer ABG pH POC ABG pCO2 POC ABG pO2 ABG Hemoglobin ABG Oxyhemoglobin ABG Sodium ABG Potassium ABG Chloride ABG Glucose Sodium 125 L D Potassium 3.5 L Chloride 88.7 L Carbon Dioxide 35 H BUN 25 H Creatinine 0.5 L Glucose 465 H POC Glucose 172 H 125 H Calcium 6.3 L D Magnesium Ferritin Alkaline Phosphatase Lactate Dehydrogenase Total Creatine Kinase CK-MB (CK-2) C-Reactive Protein Total Protein Albumin Triglycerides 1175 H Arterial Blood Glucose Arterial Blood Ionized Calcium Coronavirus (PCR) SARS-CoV-2 IgG Ab 08/10/20 08/10/20 08/10/20 05:09 05:24 08:00 WBC RBC Hgb Hct MCV MCH MCHC RDW Plt Count Lymph % (Auto) Lymph # (Auto) Seg Neutrophils % Lymphocytes % (Manual) Seg Neutrophils # Seg Neutrophils # Man Lymphocytes # (Manual) D-Dimer ABG pH 7.306 L POC ABG pCO2 75.1 H POC ABG pO2 76.1 L ABG Hemoglobin 10.7 L ABG Oxyhemoglobin ABG Sodium ABG Potassium ABG Chloride ABG Glucose 177 H Sodium 131 L Potassium Chloride 93.0 L Carbon Dioxide 35 H BUN 28 H Creatinine 0.6 L Glucose 433 H POC Glucose 161 H Calcium 6.6 L Magnesium Ferritin Alkaline Phosphatase Lactate Dehydrogenase Total Creatine Kinase CK-MB (CK-2) C-Reactive Protein Total Protein Albumin Triglycerides 869 H Arterial Blood Glucose 177 H Arterial Blood Ionized Calcium Coronavirus (PCR) SARS-CoV-2 IgG Ab
--- NOTE | 2020-08-10 12:09 | Progress Note ---
Assessment and Plan Assessment and plan: 60 YO Male HD #23 with acute hypoxemic respiratory failure, bilateral pneumonia secondary to coronavirus infection, cough who is currently intubated and on ventilatory support. Patient has poor prognosis. Patient currently unable to be weaned from ventilatory support. Patient has poor prognosis. No acute decompensation overnight. Closely monitor the patient and adjust management as needed Follow CTA chest, and inflammatory markers Consults recommendations noted and appreciated Plan of care reviewed with the patient and his nurse 07/20; patient is severely hypoxemic, on high flow oxygen 40 L/100%/O2 sats 95 Elevated D-dimers, patient is severely hypoxemic, will check CTA chest to rule out PE Also consider lower extremity venous Doppler to rule out DVT 07/21: Patient remains on high flow oxygen however mild improvement from 40 L to 35 l Tolerating prone position, continue steroids remdesivir CTA chest negative for PE, lower extremity venous Doppler negative for DVT Consults recommendations noted and appreciated Poor prognosis, patient is aware 07/22/2020; patient feels slightly better remains on high flow oxygen however lower than yesterday 35 L/95% /O2 sat 94% 07/21/2020 advised the patient to rest in prone position as tolerated Home oxygen evaluation 07/23/2020; remains on high flow oxygen, continue steroids remdesivir, prone position and comfort care Patient is critically ill with very poor prognosis and prolonged hypoxemia on high flow oxygen Plan of care reviewed with the patient and his nurse 07/24/2020; patient was severely hypoxemic rapid response called oxygen settings adjusted patient is currently better, requiring high flow oxygen right from the day he was admitted, poor prognosis, discussed with patient's 07/25/2020; patient remains on high flow oxygen in mild distress, overall prognosis poor I discussed with , and family friend physician extensively yesterday Poor prognosis continue current management 07/26/2020; patient remains on high flow oxygen 40 L/100%/95% O2 sat +100% nonrebreather Patient is critically ill, poor prognosis, ID pulmonary following 07/27/2020; patient remains on high flow oxygen 40 L/100%/[address] 100% nonrebreather Very poor prognosis, patient and family aware Pulmonary recommendations noted and appreciated 07/28/2020; patient remains critically ill, remains dependent on high flow oxygen 40 L +100% nonrebreather Very poor prognosis. 07/29/2020 Remains critically ill On high flow oxygen 07/30/2020 On high flow oxygen Is critically ill 07/31/2020 On high flow oxygen Critically ill 08/01/2020 on high flow oxygen Critically ill 08/02/2020 On Vent Weaning in progress 08/03/20 On Vent Weaning in progress 08/04/20 On vent Weaning in progress 08/05/20 Did not increase PEEP yesterday. PaO2 improved on own. Will wean FiO2 down today for sats >88%. Hold on proning for now. Continue steroids. Needs better rate control. Most likely sinus tach from hypoxemia, 08/08: Patient remains on full ventilatory support, critically ill, Proninng per Custodian Supervisor. Down to 60% oxygen FIO2. PEEP Lasix 20mg IV x 1 today, Consider changing to full dose anticoagulation. Discussed with Custodian Supervisor. Check Osmolality. Monitor Plt considering Lovenox Spoke with extensively and sister. 08/09; Continue supportive care, No significant clinical change, monitor for fever, continue pronining if tolerated. Being changed to Versed due to worsening triglycerides propofol has been stopped. Will discuss with critical care physician if some additional Lasix trial will be done as well monitoring patient's renal function. I have called and left a message for the family. 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 -- Full code status Current Visit: Yes Status: Acute Plan to address problem: Patient is a full code. Advance care planning Current Visit: Yes Status: Acute Plan to address problem: Disease education conducted, patient is full code, patient has poor prognosis. Prognosis discussed. +30 minutes. The high probability of a clinically significant, sudden or life threatening deterioration of the [cardiac, pulmonary, neuro] system(s) required my full and direct attention, intervention and personal management. The aggregate critical c are time was [45] minutes. This time is in addition to time spent performing reported procedures but includes the following: [x] Data Review and interpretation [x] Patient assessment and monitoring of vital signs [x] Documentation [x] Medication orders and management History Interval history: Patient seen and examined, unfortunately remains critically ill. Hospitalist Physical - Physical exam Narrative exam: General appearance: Present:on full ventilatory support, sedated - EENT Eyes: Present: miosis ENT: Not following commands - Neck Neck: Present: supple - Respiratory Respiratory effort: labored still mildly increased wob Respiratory: bilateral: diminished, rhonchi - Cardiovascular Rhythm: Regular but tachycardic Heart Sounds: Present: S1 & S2 - Extremities Extremities: no ischemia Peripheral Pulses: within normal limits - Abdominal General gastrointestinal: soft, non-tender, non-distended - Integumentary Integumentary: Present: dry - Psychiatric Psychiatric: no appropriate mood/affect, no intact judgment & insight, no memory intact - Neurologic Neurologic: CNII-XII intact, no gait normal - Constitutional Vitals: Temp Pulse Resp BP Pulse Ox 99.3 F 101 H 25 H 144/71 94 08/10/20 04:03 08/10/20 11:49 08/10/20 08:30 08/10/20 11:49 08/10/20 11:49 General appearance: Present: no acute distress, well-nourished HEART Score - HEART Score Troponin: Troponin T 0.018 ng/mL (0.00-0.029) 07/30/20 10:33 Results - Labs CBC & Chem 7: 08/07/20 04:00 08/10/20 08:00 Labs: Laboratory Last Values WBC 10.9 K/mm3 (4.5-11.0) 08/07/20 04:00 RBC 3.59 M/mm3 (3.65-5.03) L 08/07/20 04:00 Hgb 11.3 gm/dl (11.8-15.2) L 08/07/20 04:00 Hct 35.0 % (35.5-45.6) L 08/07/20 04:00 MCV 97 fl (84-94) H 08/07/20 04:00 MCH 32 pg (28-32) 08/07/20 04:00 MCHC 32 % (32-34) 08/07/20 04:00 RDW 13.5 % (13.2-15.2) 08/07/20 04:00 Plt Count 103 K/mm3 (140-440) L 08/07/20 04:00 Lymph % (Auto) 11.5 % (13.4-35.0) L 08/07/20 04:00 [place] % (Auto) 3.2 % (0.0-7.3) 08/07/20 04:00 Eos % (Auto) 2.1 % (0.0-4.3) 08/07/20 04:00 Baso % (Auto) 0.3 % (0.0-1.8) 08/07/20 04:00 Lymph # (Auto) 1.3 K/mm3 (1.2-5.4) 08/07/20 04:00 [place] # (Auto) 0.3 K/mm3 (0.0-0.8) 08/07/20 04:00 Eos # (Auto) 0.2 K/mm3 (0.0-0.4) 08/07/20 04:00 Baso # (Auto) 0.0 K/mm3 (0.0-0.1) 08/07/20 04:00 Add Manual Diff Complete 07/18/20 04:31 Total Counted 100 07/18/20 04:31 Seg Neutrophils % 82.9 % (40.0-70.0) H 08/07/20 04:00 Lymphocytes % (Manual) 5.0 % (13.4-35.0) L 07/18/20 04:31 Monocytes % (Manual) 3.0 % (0.0-7.3) 07/18/20 04:31 Nucleated RBC % Not Reportable 07/18/20 04:31 Seg Neutrophils # 9.0 K/mm3 (1.8-7.7) H 08/07/20 04:00 Seg Neutrophils # Man 8.1 K/mm3 (1.8-7.7) H 07/18/20 04:31 Band Neutrophils # 0.0 K/mm3 07/18/20 04:31 Lymphocytes # (Manual) 0.4 K/mm3 (1.2-5.4) L 07/18/20 04:31 Abs React Lymphs (Man) 0.0 K/mm3 07/18/20 04:31 Monocytes # (Manual) 0.3 K/mm3 (0.0-0.8) 07/18/20 04:31 Eosinophils # (Manual) 0.0 K/mm3 (0.0-0.4) 07/18/20 04:31 Basophils # (Manual) 0.0 K/mm3 (0.0-0.1) 07/18/20 04:31 Metamyelocytes # 0.0 K/mm3 07/18/20 04:31 Myelocytes # 0.0 K/mm3 07/18/20 04:31 Promyelocytes # 0.0 K/mm3 07/18/20 04:31 Blast Cells # 0.0 K/mm3 07/18/20 04:31 WBC Morphology Not Reportable 07/18/20 04:31 Hypersegmented Neuts Not Reportable 07/18/20 04:31 Hyposegmented Neuts Not Reportable 07/18/20 04:31 Hypogranular Neuts Not Reportable 07/18/20 04:31 Smudge Cells Not Reportable 07/18/20 04:31 Toxic Granulation Not Reportable 07/18/20 04:31 Toxic Vacuolation Not Reportable 07/18/20 04:31 Dohle Bodies Not Reportable 07/18/20 04:31 Pelger-Huet Anomaly Not Reportable 07/18/20 04:31 Cheri Rods Not Reportable 07/18/20 04:31 Platelet Estimate Consistent w auto 07/18/20 04:31 Clumped Platelets Not Reportable 07/18/20 04:31 Plt Clumps, EDTA Not Reportable 07/18/20 04:31 Large Platelets Not Reportable 07/18/20 04:31 Giant Platelets Not Reportable 07/18/20 04:31 Platelet Satelliting Not Reportable 07/18/20 04:31 Plt Morphology Comment Not Reportable 07/18/20 04:31 RBC Morphology Not Reportable 07/18/20 04:31 Dimorphic RBCs Not Reportable 07/18/20 04:31 Polychromasia Not Reportable 07/18/20 04:31 Hypochromasia Not Reportable 07/18/20 04:31 Poikilocytosis Not Reportable 07/18/20 04:31 Anisocytosis 1+ 07/18/20 04:31 Microcytosis Not Reportable 07/18/20 04:31 Macrocytosis Not Reportable 07/18/20 04:31 Spherocytes Not Reportable 07/18/20 04:31 Pappenheimer Bodies Not Reportable 07/18/20 04:31 Sickle Cells Not Reportable 07/18/20 04:31 Target Cells Not Reportable 07/18/20 04:31 Tear Drop Cells Not Reportable 07/18/20 04:31 Ovalocytes Not Reportable 07/18/20 04:31 Helmet Cells Not Reportable 07/18/20 04:31 [place] Bodies Not Reportable 07/18/20 04:31 [place] Rings Not Reportable 07/18/20 04:31 Jose Enrique Cells Not Reportable 07/18/20 04:31 Bite Cells Not Reportable 07/18/20 04:31 Crenated Cell Not Reportable 07/18/20 04:31 Elliptocytes Not Reportable 07/18/20 04:31 Acanthocytes (Spur) Not Reportable 07/18/20 04:31 Rouleaux Not Reportable 07/18/20 04:31 Hemoglobin C Crystals Not Reportable 07/18/20 04:31 Schistocytes Not Reportable 07/18/20 04:31 Malaria parasites Not Reportable 07/18/20 04:31 Wilfredo Bodies Not Reportable 07/18/20 04:31 Hem Pathologist Commnt No 07/18/20 04:31 PT 13.7 Sec. (12.2-14.9) 07/18/20 04:31 INR 1.06 (0.87-1.13) 07/18/20 04:31 D-Dimer > 30512 ng/mlDDU (0-234) H 07/26/20 10:07 ABG pH 7.306 (7.320-7.450) L 08/10/20 05:09 POC ABG pCO2 75.1 mmHg (32.0-48.0) H 08/10/20 05:09 POC ABG pO2 76.1 mmHg (83-108) L 08/10/20 05:09 POC ABG HCO3 36.6 08/10/20 05:09 POC ABG Base Excess 8.2 08/10/20 05:09 ABG Hemoglobin 10.7 (12.0-17.5) L 08/10/20 05:09 ABG Oxyhemoglobin 94.3 (94-98) 08/10/20 05:09 ABG Methemoglobin 0.3 (0.0-1.5) 08/10/20 05:09 ABG Sodium 142.0 mmol/L (136.0-145.0) 08/10/20 05:09 ABG Potassium 3.8 mmol/L (3.40-4.50) 08/10/20 05:09 ABG Chloride 103.0 mmol/L (98-107) 08/10/20 05:09 ABG Glucose 177 mg/dL (65-95) H 08/10/20 05:09 Carboxyhemoglobin 1.1 (0.5-1.5) 08/10/20 05:09 FiO2 60.0 08/10/20 05:09 Sodium 131 mmol/L (137-145) L 08/10/20 08:00 Potassium 3.9 mmol/L (3.6-5.0) 08/10/20 08:00 Chloride 93.0 mmol/L (98-107) L 08/10/20 08:00 Carbon Dioxide 35 mmol/L (22-30) H 08/10/20 08:00 Anion Gap 7 mmol/L 08/10/20 08:00 BUN 28 mg/dL (9-20) H 08/10/20 08:00 Creatinine 0.6 mg/dL (0.8-1.3) L 08/10/20 08:00 Estimated GFR > 60 ml/min 08/10/20 08:00 BUN/Creatinine Ratio 47 % 08/10/20 08:00 Glucose 433 mg/dL (75-100) H 08/10/20 08:00 POC Glucose 246 mg/dL (70-105) H 08/10/20 11:15 Osmolality 332 Mosm/kg 08/08/20 19:14 Calcium 6.6 mg/dL (8.4-10.2) L 08/10/20 08:00 Phosphorus 2.60 mg/dL (2.5-4.5) 08/08/20 12:40 Magnesium 2.20 mg/dL (1.7-2.3) 08/08/20 12:40 Ferritin 1079.0 ng/mL (30.0-300.0) H 07/26/20 10:07 Total Bilirubin 0.40 mg/dL (0.1-1.2) 08/07/20 04:00 Direct Bilirubin < 0.2 mg/dL (0-0.2) 07/22/20 04:31 Indirect Bilirubin 0.0 mg/dL 07/22/20 04:31 AST 21 units/L (5-40) 08/07/20 04:00 ALT 44 units/L (7-56) 08/07/20 04:00 Alkaline Phosphatase 99 units/L (35-129) 08/07/20 04:00 Lactate Dehydrogenase 708 units/L (91-180) H 07/26/20 10:07 Total Creatine Kinase 174 units/L (55-170) H 07/30/20 10:33 CK-MB (CK-2) 4.5 ng/mL (0.0-4.0) H 07/30/20 10:33 CK-MB (CK-2) Rel Index 2.5 (0-4) 07/30/20 10:33 Troponin T 0.018 ng/mL (0.00-0.029) 07/30/20 10:33 C-Reactive Protein 6.10 mg/dL (0.00-1.30) H 07/26/20 10:07 NT-Pro-B Natriuret Pep 290.3 pg/mL (0-900) 07/18/20 16:33 Total Protein 5.4 g/dL (6.3-8.2) L 08/07/20 04:00 Albumin 2.8 g/dL (3.9-5) L 08/07/20 04:00 Albumin/Globulin Ratio 1.1 % 08/07/20 04:00 Triglycerides 869 mg/dL (2-149) H 08/10/20 08:00 Procalcitonin 0.94 ng/mL (<0.15) 07/17/20 22:48 Arterial Blood Glucose 177 mg/dL (65-95) H 08/10/20 05:09 Arterial Blood Ionized Calcium 4.7 mg/dL (4.6-5.3) 08/10/20 05:09 Urine Color Yellow (Yellow) 08/02/20 11:30 Urine Turbidity Clear (Clear) 08/02/20 11:30 Urine pH 5.0 (5.0-7.0) 08/02/20 11:30 Ur Specific [place] 1.027 (1.003-1.030) 08/02/20 11:30 Urine Protein <15 mg/dl mg/dL (Negative) 08/02/20 11:30 Urine Glucose (UA) Neg mg/dL (Negative) 08/02/20 11:30 Urine Ketones Neg mg/dL (Negative) 08/02/20 11:30 Urine Blood Neg (Negative) 08/02/20 11:30 Urine Nitrite Neg (Negative) 08/02/20 11:30 Urine Bilirubin Neg (Negative) 08/02/20 11:30 Urine Urobilinogen < 2.0 mg/dL (<2.0) 08/02/20 11:30 Ur Leukocyte Esterase Neg (Negative) 08/02/20 11:30 Urine WBC (Auto) 1.0 /HPF (0.0-6.0) 08/02/20 11:30 Urine RBC (Auto) 3.0 /HPF (0.0-6.0) 08/02/20 11:30 Hyaline Casts 1 /LPF 08/02/20 11:30 Granular Casts 1 /LPF 08/02/20 11:30 Urine Mucus Few /HPF 08/02/20 11:30 Coronavirus (PCR) Positive (Negative) A 07/18/20 08:50 SARS-CoV-2 IgG Ab Reactive (NonReactive) A 07/21/20 05:24 [place]/IV: Voiding Method Indwelling Catheter IV Catheter Type [Left Upper PICC Line arm] IV Catheter Type [Left Hand] INT / Saline Lock IV Catheter Type [Left Wrist] INT / Saline Lock IV Catheter Type [Left INT / Saline Lock Antecubital] IV Catheter Type [Right Distal INT / Saline Lock Port Hand] Active Medications - Current Medications Current Medications: Generic Name Dose Route Start Last Admin Trade Name Freq PRN Reason Stop Dose Admin Acetaminophen 650 mg 07/17/20 22:21 08/06/20 13:14 Acetaminophen 325 Mg Tab PO 650 mg Q4H PRN Administration Pain MILD(1-3)/Fever >100.5/AWDA Albuterol 2.5 mg 07/18/20 16:14 07/18/20 19:45 Albuterol 2.5 Mg/3 Ml Nebu IH 2.5 mg Q4HRT PRN Administration Shortness Of Breath Lipase/Protease/Amylase 1 each 07/31/20 12:23 Lipase 10,500/Protease 25,000/Amylase 43,750 (Units) Dr Cap FEEDTUBE PRN PRN For Clogged Feeding Tube Ascorbic Acid 1,000 mg 08/08/20 22:00 08/10/20 09:32 Ascorbic Acid 500 Mg Tab PO 1,000 mg BID SHERON Administration Cholecalciferol 5,000 unit 08/08/20 19:00 08/10/20 09:32 Cholecalciferol (Vit D3) 5,000 Unit Tab PO 5,000 unit DAILY SHERON Administration Dexamethasone 6 mg 07/31/20 11:00 08/10/20 09:32 Dexamethasone 4 Mg/Ml Vial IV 6 mg Q24HR SHERON Administration Dextrose 50 ml 08/06/20 13:14 Dextrose 50% In Water (25gm) 50 Ml Syringe IV Q30MIN PRN Hypoglycemia Protocol Enoxaparin Sodium 90 mg 08/08/20 22:00 08/10/20 09:32 Enoxaparin 100 Mg/1 Ml Inj 1 mg/kg (90 mg) 90 mg SUB-Q Administration Q12HR [facility] Protocol Famotidine 20 mg 08/01/20 10:00 08/10/20 09:31 Famotidine 20 Mg Tab PO 20 mg BID SHERON Administration Fentanyl 50 mcg 07/31/20 11:00 08/10/20 09:58 Fentanyl 100 Mcg/2 Ml Inj IV 50 mcg Q10MIN PRN Administration ANALGESIA Hydrophilic Ointment 1 applic 07/31/20 11:00 Lip Therapy Vaseline TP Q2H PRN Dry Lips Norepinephrine 4 mg in 250 mls @ 7.5 mls/hr 07/31/20 09:00 08/01/20 02:37 Levophed Drip 4 Mg/Ns 250 Ml IV 0 mcg/min TITR SHERON 0 mls/hr Titration Protocol 2 MCG/MIN Fentanyl Citrate 2,000 mcg in 100 mls @ 4.43 mls/hr 07/31/20 11:00 08/10/20 09:31 Fentanyl Drip Premix IV 4 mcg/kg/hr TITR SHERON 17.72 mls/hr Administration Protocol 1 MCG/KG/HR Midazolam HCl 100 mg/ Sodium 100 mls @ 2 mls/hr 08/10/20 11:00 08/10/20 11:13 Chloride IV 1 mg/hr TITR SHERON 1 mls/hr Administration Protocol 2 MG/HR Insulin Human Lispro 0 unit 08/07/20 00:00 08/10/20 11:16 Insulin Lispro 100 Unit/Ml Vial 3 Ml SUB-Q 3 unit Q6HR SHERON Administration Protocol Lorazepam 2 mg 08/08/20 11:36 08/08/20 12:00 Lorazepam 2 Mg/Ml Vial IV 2 mg Q4H PRN Administration Agitation Magnesium Hydroxide 30 ml 07/17/20 22:21 08/05/20 11:11 Magnesium Hydroxide (Mom) Oral Liqd Udc PO 30 ml Q4H PRN Administration Constipation Midazolam HCl 2 mg 08/10/20 10:21 Midazolam 2 Mg/2 Ml Inj IV Q10MIN PRN Sedation Multi-Ingred Cream/Lotion/Oil/Oint 1 applic 07/31/20 10:55 Mineral Oil/Petrolatum, White Ophth Oint 3.5 Gm OU Q4H PRN Dry Eye(s) Ondansetron HCl 4 mg 07/17/20 22:21 07/20/20 02:21 Ondansetron 4 Mg/2 Ml Inj IV 4 mg Q8H PRN Administration Nausea And Vomiting Senna/Docusate Sodium 2 tab 08/03/20 11:00 08/10/20 09:32 Sennosides/Docusate Sodium 8.6/50 Mg Tab PO 2 tab BID SHERON Administration Simple Syrup 15 ml 07/31/20 12:23 Simple Syrup 15 Ml FEEDTUBE PRN PRN Hypoglycemia Simple Syrup 30 ml 07/31/20 12:23 Simple Syrup 15 Ml FEEDTUBE PRN PRN Hypoglycemia Sodium Bicarbonate 325 mg 07/31/20 12:23 Sodium Bicarbonate 325 Mg Tab FEEDTUBE PRN PRN For Clogged Feeding Tube Sodium Chloride 10 ml 07/17/20 22:01 07/17/20 22:13 Sodium Chloride 0.9% 10 Ml Flush Syringe IV 10 ml PRN PRN Administration LINE FLUSH Sodium Chloride 10 ml 07/18/20 10:00 08/10/20 09:33 Sodium Chloride 0.9% 10 Ml Flush Syringe IV 10 ml BID SHERON Administration Trazodone HCl 50 mg 07/30/20 22:00 08/09/20 22:32 Trazodone 50 Mg Tab PO 50 mg QHS SHERON Administration Zinc Sulfate 220 mg 08/08/20 19:00 08/10/20 09:32 Zinc Sulfate 220 Mg Cap PO 220 mg QDAY SHERON Administration Nutrition/Malnutrition Assess - Dietary Evaluation Nutrition/Malnutrition Findings: Nutrition Notes Start: 07/23/20 13:19 Freq: Status: Active Protocol: Document 08/09/20 13:07 AT (Rec: 08/09/20 13:53 AT [email or web address]) Co-Sign 08/09/20 13:07 NHALL Nutrition Notes Initial or Follow up Reassessment Current Diagnosis Respiratory Failure Other Pertinent Diagnosis COVID-19 (+), pneu, prerenal azotemia Current Diet Vital AF 1.2 at 70 mL/hr Labs/Tests Na 151 BUN 32 Cr 0.6 BG 189 Pertinent Medications Vit C Vit D3 Decadron Levophed Propofol at 2.658 mL/hr (70 kcal) D5W started today Height 5 ft 11 in Weight 87.1 kg [place] Body Weight (kg) 78.18 BMI 26.7 Weight change and time frame Wt change noted (2.89% wt loss x 3 days. Weight Status Overweight Subjective/Other Information Follow-up for TF tolerance and Na labs. Per RN, pt is tolerating TF without issue. Pt remains on vent. 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 #1 Nutrition Diagnosis Inadequate oral intake Diagnosis Progress(for reassessment Continues documentation) Is patient on ventilator? Yes Is Patient Ambulatory and/or Out of Bed No REE-([place]-St. Jeor-confined to bed) 2053. Calculation Used for Recommendations [place]-St Jeor Additional Notes Pro needs 1.2-2g/k-174g/ day Fluid needs 1ml/kcal Nutrition Intervention Change Diet Order: Continue TF Nutrition Support: Vital AF 1.2 at 70ml/hr with 300ml water flush q4h until hypernatremia resolved; then 115ml q4h. When pronin hr proned: Vital AF 1.2 at 20 ml/hr, flush 100 ml q4h for hypernatremia, or per MD; then 50 ml q4h once resolved. 12 hr supine: Vital AF 1.2 at 120 ml/hr, flush 350 ml q4h for hypernatremia, or per MD; then 180 q4h once resolved. Kcal 2,016 Protein (gm) 126 Fluid (mL) 1,362 Goal #1 Continued TF tolerance Goal #2 Continue to meet at least 75% of estimated energy and protein needs via TF. Anticipated Discharge Needs: Unable to determine at this time Follow-Up By: 08/12/20 Additional Comments F/U for Na labs, water flush, prone status, and TF tolerance
[2020-08-10] MEDS: LORazepam 2 MG/ML VIAL IV PRN (12:17)
[2020-08-10] MEDS: MIDAZOLAM 2 MG/2 ML INJ IV PRN ×3 (13:16→18:09)
[2020-08-10 13:48] LABS: Hematocrit 31.3 % (35.5-45.6); Hemoglobin 10.1 gm/dl (11.8-15.2); Mean Corpuscular HGB Conc 32 % (32-34); Mean Corpuscular Volume 98 fl (84-94); Platelet Count 123 K/mm3 (140-440); Red Blood Count 3.18 M/mm3 (3.65-5.03); Red Cell Distribution Width 13.6 % (13.2-15.2)
[2020-08-10 14:07] LABS: Blood Urea Nitrogen 29 mg/dL (9-20); Calcium 7.4 mg/dL (8.4-10.2); Hemolysis Index 6
[2020-08-10 14:09] LABS: BUN/Creatinine Ratio 48
[2020-08-10 14:10] LABS: Erythrocyte Sedimentation Rate > 140.0 mm/Hr (0-20)
[2020-08-10] MEDS: traZODone 50 MG TAB PO SCH (22:22)
[2020-08-11] MEDS: INSULIN LISPRO 100 UNIT/ML VIAL 3 mL SUB-Q SCH ×4 (03:08→17:59)
[2020-08-11] MEDS: fentaNYL DRIP Premix 2,000 MCG/100 ML BAG IV SCH ×4 (03:35→22:14)
[2020-08-11] MEDS: MIDAZOLAM 100 MG in SODIUM CHLORIDE 0.9% 80 ML IV SCH (04:19)
--- NOTE | 2020-08-11 08:04 | Progress Note ---
Assessment and Plan Assessment and plan: 60 YO Male HD #23 with acute hypoxemic respiratory failure, bilateral pneumonia secondary to coronavirus infection, cough who is currently intubated and on ventilatory support. Patient has poor prognosis. Patient currently unable to be weaned from ventilatory support. Patient has poor prognosis. No acute decompensation overnight. Closely monitor the patient and adjust management as needed Follow CTA chest, and inflammatory markers Consults recommendations noted and appreciated Plan of care reviewed with the patient and his nurse 07/20; patient is severely hypoxemic, on high flow oxygen 40 L/100%/O2 sats 95 Elevated D-dimers, patient is severely hypoxemic, will check CTA chest to rule out PE Also consider lower extremity venous Doppler to rule out DVT 07/21: Patient remains on high flow oxygen however mild improvement from 40 L to 35 l Tolerating prone position, continue steroids remdesivir CTA chest negative for PE, lower extremity venous Doppler negative for DVT Consults recommendations noted and appreciated Poor prognosis, patient is aware 07/22/2020; patient feels slightly better remains on high flow oxygen however lower than yesterday 35 L/95% /O2 sat 94% 07/21/2020 advised the patient to rest in prone position as tolerated Home oxygen evaluation 07/23/2020; remains on high flow oxygen, continue steroids remdesivir, prone position and comfort care Patient is critically ill with very poor prognosis and prolonged hypoxemia on high flow oxygen Plan of care reviewed with the patient and his nurse 07/24/2020; patient was severely hypoxemic rapid response called oxygen settings adjusted patient is currently better, requiring high flow oxygen right from the day he was admitted, poor prognosis, discussed with patient's 07/25/2020; patient remains on high flow oxygen in mild distress, overall prognosis poor I discussed with , and family friend physician extensively yesterday Poor prognosis continue current management 07/26/2020; patient remains on high flow oxygen 40 L/100%/95% O2 sat +100% nonrebreather Patient is critically ill, poor prognosis, ID pulmonary following 07/27/2020; patient remains on high flow oxygen 40 L/100%/[address] 100% nonrebreather Very poor prognosis, patient and family aware Pulmonary recommendations noted and appreciated 07/28/2020; patient remains critically ill, remains dependent on high flow oxygen 40 L +100% nonrebreather Very poor prognosis. 07/29/2020 Remains critically ill On high flow oxygen 07/30/2020 On high flow oxygen Is critically ill 07/31/2020 On high flow oxygen Critically ill 08/01/2020 on high flow oxygen Critically ill 08/02/2020 On Vent Weaning in progress 08/03/20 On Vent Weaning in progress 08/04/20 On vent Weaning in progress 08/05/20 Did not increase PEEP yesterday. PaO2 improved on own. Will wean FiO2 down today for sats >88%. Hold on proning for now. Continue steroids. Needs better rate control. Most likely sinus tach from hypoxemia, 08/08: Patient remains on full ventilatory support, critically ill, Proninng per [employer] String Winder. Down to 60% oxygen FIO2. PEEP Lasix 20mg IV x 1 today, Consider changing to full dose anticoagulation. Discussed with Bass String Winder. Check Osmolality. Monitor Plt considering Lovenox Spoke with extensively and sister. 08/10; Continue supportive care, No significant clinical change, monitor for fever, continue pronining if tolerated. Being changed to Versed due to worsening triglycerides propofol has been stopped. Will discuss with critical care physician if some additional Lasix trial will be done as well monitoring patient's renal function. I have called and left a message for the family. 08/11: Continues with persistent hypoxia and hypercapnia. Intermittent fever. No elevated leukocytosis. Will reconsult ID to assist with management of this. Continue on full dose anticoagulation while monitoring H&H. We will hold off any further Lasix due to noted elevated bicarb. We will continue to monitor --Acute hypoxc respiratory failure on Vent Current Visit: Yes Status: Acute Plan to address problem: Weaning in progress -- Hypernatremia increase water intake --COVID-19 positive Continue contact and droplet isolation, --Elevated D-dimers; CTA chest negative for PE, mild pulmonary edema, -- Pneumonia Current Visit: Yes Status: Acute Plan to address problem: Off antibiotics --Severe protein calorie Malnutrition Coding And Reimbursement Specialist consult -- Throbocytopenia -- Acute Metabolic Encephalopathy ---DVT prophylaxis Current Visit: Yes Status: Acute Plan to address problem: Patient placed on subcutaneous Lovenox. -- Full code status Current Visit: Yes Status: Acute Plan to address problem: Patient is a full code. Advance care planning Current Visit: Yes Status: Acute Plan to address problem: Disease education conducted, patient is full code, patient has poor prognosis. Prognosis discussed. +30 minutes. The high probability of a clinically significant, sudden or life threatening deterioration of the [cardiac, pulmonary, neuro] system(s) required my full and direct attention, intervention and personal management. The aggregate critical care time was [45] minutes. This time is in addition to time spent performing reported procedures but includes the following: [x] Data Review and interpretation [x] Patient assessment and monitoring of vital signs [x] Documentation [x] Medication orders and management History Interval history: Patient seen and examined, unfortunately remains critically ill. Hospitalist Physical - Physical exam Narrative exam: General appearance: Present:on full ventilatory support, sedated - EENT Eyes: Present: miosis ENT: Not following commands - Neck Neck: Present: supple - Respiratory Respiratory effort: labored still mildly increased wob Respiratory: bilateral: diminished, rhonchi - Cardiovascular Rhythm: Regular but tachycardic Heart Sounds: Present: S1 & S2 - Extremities Extremities: no ischemia Peripheral Pulses: within normal limits - Abdominal General gastrointestinal: soft, non-tender, non-distended - Integumentary Integumentary: Present: dry - Psychiatric Psychiatric: no appropriate mood/affect, no intact judgment & insight, no memory intact - Neurologic Neurologic: CNII-XII intact, no gait normal - Constitutional Vitals: Temp Pulse Resp BP Pulse Ox 100.1 F H 103 H 30 H 113/65 95 08/11/20 03:16 08/11/20 06:45 08/11/20 06:45 08/11/20 06:45 08/11/20 06:45 General appearance: Present: no acute distress, well-nourished HEART Score - HEART Score Troponin: Troponin T 0.018 ng/mL (0.00-0.029) 07/30/20 10:33 Results - Labs CBC & Chem 7: 08/11/20 09:00 08/11/20 09:00 Labs: Laboratory Last Values WBC 7.3 K/mm3 (4.5-11.0) 08/10/20 13:23 RBC 3.18 M/mm3 (3.65-5.03) L 08/10/20 13:23 Hgb 10.1 gm/dl (11.8-15.2) L 08/10/20 13:23 Hct 31.3 % (35.5-45.6) L 08/10/20 13:23 MCV 98 fl (84-94) H 08/10/20 13:23 MCH 32 pg (28-32) 08/10/20 13:23 MCHC 32 % (32-34) 08/10/20 13:23 RDW 13.6 % (13.2-15.2) 08/10/20 13:23 Plt Count 123 K/mm3 (140-440) L 08/10/20 13:23 Lymph % (Auto) 11.5 % (13.4-35.0) L 08/07/20 04:00 Teller % (Auto) 3.2 % (0.0-7.3) 08/07/20 04:00 Eos % (Auto) 2.1 % (0.0-4.3) 08/07/20 04:00 Baso % (Auto) 0.3 % (0.0-1.8) 08/07/20 04:00 Lymph # (Auto) 1.3 K/mm3 (1.2-5.4) 08/07/20 04:00 Teller # (Auto) 0.3 K/mm3 (0.0-0.8) 08/07/20 04:00 Eos # (Auto) 0.2 K/mm3 (0.0-0.4) 08/07/20 04:00 Baso # (Auto) 0.0 K/mm3 (0.0-0.1) 08/07/20 04:00 Add Manual Diff Complete 07/18/20 04:31 Total Counted 100 07/18/20 04:31 Seg Neutrophils % 82.9 % (40.0-70.0) H 08/07/20 04:00 Lymphocytes % (Manual) 5.0 % (13.4-35.0) L 07/18/20 04:31 Monocytes % (Manual) 3.0 % (0.0-7.3) 07/18/20 04:31 Nucleated RBC % Not Reportable 07/18/20 04:31 Seg Neutrophils # 9.0 K/mm3 (1.8-7.7) H 08/07/20 04:00 Seg Neutrophils # Man 8.1 K/mm3 (1.8-7.7) H 07/18/20 04:31 Band Neutrophils # 0.0 K/mm3 07/18/20 04:31 Lymphocytes # (Manual) 0.4 K/mm3 (1.2-5.4) L 07/18/20 04:31 Abs React Lymphs (Man) 0.0 K/mm3 07/18/20 04:31 Monocytes # (Manual) 0.3 K/mm3 (0.0-0.8) 07/18/20 04:31 Eosinophils # (Manual) 0.0 K/mm3 (0.0-0.4) 07/18/20 04:31 Basophils # (Manual) 0.0 K/mm3 (0.0-0.1) 07/18/20 04:31 Metamyelocytes # 0.0 K/mm3 07/18/20 04:31 Myelocytes # 0.0 K/mm3 07/18/20 04:31 Promyelocytes # 0.0 K/mm3 07/18/20 04:31 Blast Cells # 0.0 K/mm3 07/18/20 04:31 WBC Morphology Not Reportable 07/18/20 04:31 Hypersegmented Neuts Not Reportable 07/18/20 04:31 Hyposegmented Neuts Not Reportable 07/18/20 04:31 Hypogranular Neuts Not Reportable 07/18/20 04:31 Smudge Cells Not Reportable 07/18/20 04:31 Toxic Granulation Not Reportable 07/18/20 04:31 Toxic Vacuolation Not Reportable 07/18/20 04:31 Dohle Bodies Not Reportable 07/18/20 04:31 Pelger-Huet Anomaly Not Reportable 07/18/20 04:31 Cheri Rods Not Reportable 07/18/20 04:31 Platelet Estimate Consistent w auto 07/18/20 04:31 Clumped Platelets Not Reportable 07/18/20 04:31 Plt Clumps, EDTA Not Reportable 07/18/20 04:31 Large Platelets Not Reportable 07/18/20 04:31 Giant Platelets Not Reportable 07/18/20 04:31 Platelet Satelliting Not Reportable 07/18/20 04:31 Plt Morphology Comment Not Reportable 07/18/20 04:31 RBC Morphology Not Reportable 07/18/20 04:31 Dimorphic RBCs Not Reportable 07/18/20 04:31 Polychromasia Not Reportable 07/18/20 04:31 Hypochromasia Not Reportable 07/18/20 04:31 Poikilocytosis Not Reportable 07/18/20 04:31 Anisocytosis 1+ 07/18/20 04:31 Microcytosis Not Reportable 07/18/20 04:31 Macrocytosis Not Reportable 07/18/20 04:31 Spherocytes Not Reportable 07/18/20 04:31 Pappenheimer Bodies Not Reportable 07/18/20 04:31 Sickle Cells Not Reportable 07/18/20 04:31 Target Cells Not Reportable 07/18/20 04:31 Tear Drop Cells Not Reportable 07/18/20 04:31 Ovalocytes Not Reportable 07/18/20 04:31 Helmet Cells Not Reportable 07/18/20 04:31 Siu-[place]um[place] Bodies Not Reportable 07/18/20 04:31 Colome Rings Not Reportable 07/18/20 04:31 Jose Enrique Cells Not Reportable 07/18/20 04:31 Bite Cells Not Reportable 07/18/20 04:31 Crenated Cell Not Reportable 07/18/20 04:31 Elliptocytes Not Reportable 07/18/20 04:31 Acanthocytes (Spur) Not Reportable 07/18/20 04:31 Rouleaux Not Reportable 07/18/20 04:31 Hemoglobin C Crystals Not Reportable 07/18/20 04:31 Schistocytes Not Reportable 07/18/20 04:31 Malaria parasites Not Reportable 07/18/20 04:31 ESR > 140.0 mm/Hr (0-20) 08/10/20 13:23 Wilfredo Bodies Not Reportable 07/18/20 04:31 Hem Pathologist Commnt No 07/18/20 04:31 PT 13.7 Sec. (12.2-14.9) 07/18/20 04:31 INR 1.06 (0.87-1.13) 07/18/20 04:31 D-Dimer > 82347 ng/mlDDU (0-234) H 07/26/20 10:07 ABG pH 7.421 (7.320-7.450) 08/11/20 04:33 POC ABG pCO2 66.9 mmHg (32.0-48.0) H 08/11/20 04:33 POC ABG pO2 65.2 mmHg (83-108) L 08/11/20 04:33 POC ABG HCO3 42.5 08/11/20 04:33 POC ABG Base Excess 15.5 08/11/20 04:33 ABG Hemoglobin 10.5 (12.0-17.5) L 08/11/20 04:33 ABG Oxyhemoglobin 91.7 (94-98) L 08/11/20 04:33 ABG Methemoglobin 0.3 (0.0-1.5) 08/11/20 04:33 ABG Sodium 144.8 mmol/L (136.0-145.0) 08/11/20 04:33 ABG Potassium 4.3 mmol/L (3.40-4.50) 08/11/20 04:33 ABG Chloride 105.0 mmol/L (98-107) 08/11/20 04:33 ABG Glucose 124 mg/dL (65-95) H 08/11/20 04:33 Carboxyhemoglobin 1.3 (0.5-1.5) 08/11/20 04:33 FiO2 60 08/11/20 04:33 Sodium 141 mmol/L (137-145) D 08/10/20 13:23 Potassium 4.9 mmol/L (3.6-5.0) D 08/10/20 13:23 Chloride 100.8 mmol/L (98-107) 08/10/20 13:23 Carbon Dioxide 37 mmol/L (22-30) H 08/10/20 13:23 Anion Gap 8 mmol/L 08/10/20 13:23 BUN 29 mg/dL (9-20) H 08/10/20 13:23 Creatinine 0.6 mg/dL (0.8-1.3) L 08/10/20 13:23 Estimated GFR > 60 ml/min 08/10/20 13:23 BUN/Creatinine Ratio 48 % 08/10/20 13:23 Glucose 313 mg/dL (75-100) H 08/10/20 13:23 POC Glucose 106 mg/dL (70-105) H 08/11/20 05:19 Osmolality 332 Mosm/kg 08/08/20 19:14 Lactic Acid 1.30 mmol/L (0.7-2.0) 08/10/20 13:23 Calcium 7.4 mg/dL (8.4-10.2) L 08/10/20 13:23 Phosphorus 2.60 mg/dL (2.5-4.5) 08/08/20 12:40 Magnesium 2.20 mg/dL (1.7-2.3) 08/08/20 12:40 Ferritin 1079.0 ng/mL (30.0-300.0) H 07/26/20 10:07 Total Bilirubin 0.40 mg/dL (0.1-1.2) 08/07/20 04:00 Direct Bilirubin < 0.2 mg/dL (0-0.2) 07/22/20 04:31 Indirect Bilirubin 0.0 mg/dL 07/22/20 04:31 AST 21 units/L (5-40) 08/07/20 04:00 ALT 44 units/L (7-56) 08/07/20 04:00 Alkaline Phosphatase 99 units/L (35-129) 08/07/20 04:00 Lactate Dehydrogenase 708 units/L (91-180) H 07/26/20 10:07 Total Creatine Kinase 174 units/L (55-170) H 07/30/20 10:33 CK-MB (CK-2) 4.5 ng/mL (0.0-4.0) H 07/30/20 10:33 CK-MB (CK-2) Rel Index 2.5 (0-4) 07/30/20 10:33 Troponin T 0.018 ng/mL (0.00-0.029) 07/30/20 10:33 C-Reactive Protein 22.70 mg/dL (0.00-1.30) H 08/10/20 13:23 NT-Pro-B Natriuret Pep 290.3 pg/mL (0-900) 07/18/20 16:33 Total Protein 5.4 g/dL (6.3-8.2) L 08/07/20 04:00 Albumin 2.8 g/dL (3.9-5) L 08/07/20 04:00 Albumin/Globulin Ratio 1.1 % 08/07/20 04:00 Triglycerides 869 mg/dL (2-149) H 08/10/20 08:00 Procalcitonin 0.94 ng/mL (<0.15) 07/17/20 22:48 Arterial Blood Glucose 124 mg/dL (65-95) H 08/11/20 04:33 Arterial Blood Ionized Calcium 4.5 mg/dL (4.6-5.3) L 08/11/20 04:33 Urine Color Yellow (Yellow) 08/02/20 11:30 Urine Turbidity Clear (Clear) 08/02/20 11:30 Urine pH 5.0 (5.0-7.0) 08/02/20 11:30 Ur Specific [place] 1.027 (1.003-1.030) 08/02/20 11:30 Urine Protein <15 mg/dl mg/dL (Negative) 08/02/20 11:30 Urine Glucose (UA) Neg mg/dL (Negative) 08/02/20 11:30 Urine Ketones Neg mg/dL (Negative) 08/02/20 11:30 Urine Blood Neg (Negative) 08/02/20 11:30 Urine Nitrite Neg (Negative) 08/02/20 11:30 Urine Bilirubin Neg (Negative) 08/02/20 11:30 Urine Urobilinogen < 2.0 mg/dL (<2.0) 08/02/20 11:30 Ur Leukocyte Esterase Neg (Negative) 08/02/20 11:30 Urine WBC (Auto) 1.0 /HPF (0.0-6.0) 08/02/20 11:30 Urine RBC (Auto) 3.0 /HPF (0.0-6.0) 08/02/20 11:30 Hyaline Casts 1 /LPF 08/02/20 11:30 Granular Casts 1 /LPF 08/02/20 11:30 Urine Mucus Few /HPF 08/02/20 11:30 Coronavirus (PCR) Positive (Negative) A 07/18/20 08:50 SARS-CoV-2 IgG Ab Reactive (NonReactive) A 07/21/20 05:24 Microbiology: Microbiology 08/10/20 13:23 Peripheral/Venous Blood Culture - Preliminary Culture in Progress 08/10/20 13:23 Peripheral/Venous Blood Culture - Preliminary Culture in Progress Cabrera/IV: Voiding Method Indwelling Catheter IV Catheter Type [Left Upper PICC Line arm] IV Catheter Type [Left Hand] INT / Saline Lock IV Catheter Type [Left Wrist] INT / Saline Lock IV Catheter Type [Left INT / Saline Lock Antecubital] IV Catheter Type [Right Distal INT / Saline Lock Port Hand] Active Medications - Current Medications Current Medications: Generic Name Dose Route Start Last Admin Trade Name Freq PRN Reason Stop Dose Admin Acetaminophen 650 mg 07/17/20 22:21 08/06/20 13:14 Acetaminophen 325 Mg Tab PO 650 mg Q4H PRN Administration Pain MILD(1-3)/Fever >100.5/AWAD Albuterol 2.5 mg 07/18/20 16:14 07/18/20 19:45 Albuterol 2.5 Mg/3 Ml Nebu IH 2.5 mg Q4HRT PRN Administration Shortness Of Breath Lipase/Protease/Amylase 1 each 07/31/20 12:23 Lipase 10,500/Protease 25,000/Amylase 43,750 (Units) Dr Olson FEEDTUBE PRN PRN For Clogged Feeding Tube Ascorbic Acid 1,000 mg 08/08/20 22:00 08/10/20 22:22 Ascorbic Acid 500 Mg Tab PO 1,000 mg BID SHERON Administration Cholecalciferol 5,000 unit 08/08/20 19:00 08/10/20 09:32 Cholecalciferol (Vit D3) 5,000 Unit Tab PO 5,000 unit DAILY SHERON Administration Dexamethasone 6 mg 07/31/20 11:00 08/10/20 09:32 Dexamethasone 4 Mg/Ml Vial IV 6 mg Q24HR SHERON Administration Dextrose 50 ml 08/06/20 13:14 Dextrose 50% In Water (25gm) 50 Ml Syringe IV Q30MIN PRN Hypoglycemia Protocol Enoxaparin Sodium 90 mg 08/08/20 22:00 08/10/20 22:21 Enoxaparin 100 Mg/1 Ml Inj 1 mg/kg (90 mg) 90 mg SUB-Q Administration Q12HR SHERON Protocol Famotidine 20 mg 08/01/20 10:00 08/10/20 22:21 Famotidine 20 Mg Tab PO 20 mg BID SHERON Administration Fentanyl 50 mcg 07/31/20 11:00 08/10/20 18:08 Fentanyl 100 Mcg/2 Ml Inj IV 50 mcg Q10MIN PRN Administration ANALGESIA Hydrophilic Ointment 1 applic 07/31/20 11:00 Lip Therapy Vaseline TP Q2H PRN Dry Lips Norepinephrine 4 mg in 250 mls @ 7.5 mls/hr 07/31/20 09:00 08/01/20 02:37 Levophed Drip 4 Mg/Ns 250 Ml IV 0 mcg/min TITR SHERON 0 mls/hr Titration Protocol 2 MCG/MIN Fentanyl Citrate 2,000 mcg in 100 mls @ 4.43 mls/hr 07/31/20 11:00 08/11/20 03:35 Fentanyl Drip Premix IV 4 mcg/kg/hr TITR SHERON 17.72 mls/hr Administration Protocol 1 MCG/KG/HR Midazolam HCl 100 mg/ Sodium 100 mls @ 2 mls/hr 08/10/20 11:00 08/11/20 04:19 Chloride IV 4 mg/hr TITR SHERON 4 mls/hr Administration Protocol 2 MG/HR Insulin Human Lispro 0 unit 08/07/20 00:00 08/11/20 06:55 Insulin Lispro 100 Unit/Ml Vial 3 Ml SUB-Q Not Given Q6HR SHERON Protocol Lorazepam 2 mg 08/08/20 11:36 08/10/20 12:17 Lorazepam 2 Mg/Ml Vial IV 2 mg Q4H PRN Administration Agitation Magnesium Hydroxide 30 ml 07/17/20 22:21 08/05/20 11:11 Magnesium Hydroxide (Mom) Oral Liqd Udc PO 30 ml Q4H PRN Administration Constipation Midazolam HCl 2 mg 08/10/20 10:21 08/10/20 18:09 Midazolam 2 Mg/2 Ml Inj IV 2 mg Q10MIN PRN Administration Sedation Multi-Ingred Cream/Lotion/Oil/Oint 1 applic 07/31/20 10:55 Mineral Oil/Petrolatum, White Ophth Oint 3.5 Gm OU Q4H PRN Dry Eye(s) Ondansetron HCl 4 mg 07/17/20 22:21 07/20/20 02:21 Ondansetron 4 Mg/2 Ml Inj IV 4 mg Q8H PRN Administration Nausea And Vomiting Senna/Docusate Sodium 2 tab 08/03/20 11:00 08/10/20 22:22 Sennosides/Docusate Sodium 8.6/50 Mg Tab PO 2 tab BID SHERON Administration Simple Syrup 15 ml 07/31/20 12:23 Simple Syrup 15 Ml FEEDTUBE PRN PRN Hypoglycemia Simple Syrup 30 ml 07/31/20 12:23 Simple Syrup 15 Ml FEEDTUBE PRN PRN Hypoglycemia Sodium Bicarbonate 325 mg 07/31/20 12:23 Sodium Bicarbonate 325 Mg Tab FEEDTUBE PRN PRN For Clogged Feeding Tube Sodium Chloride 10 ml 07/17/20 22:01 07/17/20 22:13 Sodium Chloride 0.9% 10 Ml Flush Syringe IV 10 ml PRN PRN Administration LINE FLUSH Sodium Chloride 10 ml 07/18/20 10:00 08/10/20 22:22 Sodium Chloride 0.9% 10 Ml Flush Syringe IV 10 ml BID SHERON Administration Trazodone HCl 50 mg 07/30/20 22:00 08/10/20 22:22 Trazodone 50 Mg Tab PO 50 mg QHS SHERON Administration Zinc Sulfate 220 mg 08/08/20 19:00 08/10/20 09:32 Zinc Sulfate 220 Mg Cap PO 220 mg QDAY SHERON Administration Nutrition/Malnutrition Assess - Dietary Evaluation Nutrition/Malnutrition Findings: Nutrition Notes Start: 07/23/20 13 :19 Freq: Status: Active Protocol: Document 08/09/20 13:07 AT (Rec: 08/09/20 13:53 AT [email or web address]) Co-Sign 08/09/20 13:07 NHALL Nutrition Notes Initial or Follow up Reassessment Current Diagnosis Respiratory Failure Other Pertinent Diagnosis COVID-19 (+), pneu, prerenal azotemia Current Diet Vital AF 1.2 at 70 mL/hr Labs/Tests Na 151 BUN 32 Cr 0.6 BG 189 Pertinent Medications Vit C Vit D3 Decadron Levophed Propofol at 2.658 mL/hr (70 kcal) D5W started today Height 5 ft 11 in Weight 87.1 kg [place] Body Weight (kg) 78.18 BMI 26.7 Weight change and time frame Wt change noted (2.89% wt loss x 3 days. Weight Status Overweight Subjective/Other Information Follow-up for TF tolerance and Na labs. Per RN, pt is tolerating TF without issue. Pt remains on vent. 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 #1 Nutrition Diagnosis Inadequate oral intake Diagnosis Progress(for reassessment Continues documentation) Is patient on ventilator? Yes Is Patient Ambulatory and/or Out of Bed No REE-([facility]-confined to bed) 2053.364 Calculation Used for Recommendations [facility] Additional Notes Pro needs 1.2-2g/k-174g/ day Fluid needs 1ml/kcal Nutrition Intervention Change Diet Order: Continue TF Nutrition Support: Vital AF 1.2 at 70ml/hr with 300ml water flush q4h until hypernatremia resolved; then 115ml q4h. When pronin hr proned: Vital AF 1.2 at 20 ml/hr, flush 100 ml q4h for hypernatremia, or per MD; then 50 ml q4h once resolved. 12 hr supine: Vital AF 1.2 at 120 ml/hr, flush 350 ml q4h for hypernatremia, or per MD; then 180 q4h once resolved. Kcal 2,016 Protein (gm) 126 Fluid (mL) 1,362 Goal #1 Continued TF tolerance Goal #2 Continue to meet at least 75% of estimated energy and protein needs via TF. Anticipated Discharge Needs: Unable to determine at this time Follow-Up By: 08/12/20 Additional Comments F/U for Na labs, water flush, prone status, and TF tolerance
--- NOTE | 2020-08-11 08:59 | XRay Report ---
CHEST 1 VIEW INDICATION: RESPIRATORY FAILURE. COMPARISON: 08/03/2020 FINDINGS: Support devices: Endotracheal tube, left arm PICC and nasogastric tube remain in adequate position. Heart: Within normal limits. Lungs/Pleura: Hazy bibasilar infiltrates have decreased slightly. No pleural effusion or pneumothorax . Additional findings: None. IMPRESSION: Mild improvement in the lower lobe infiltrates. Signer Name: Edgar Sylvester Jr, MD Signed: 08/11/2020 8:55 AM Workstation Name: [id number]
[2020-08-11] MEDS: SENNOSIDES/DOCUSATE SODIUM 8.6/50 MG TAB PO SCH ×2 (10:19→21:00)
[2020-08-11] MEDS: FAMOTIDINE 20 MG TAB PO SCH ×2 (10:19→21:00)
[2020-08-11] MEDS: fentaNYL 100 MCG/2 ML INJ IV PRN (10:20)
[2020-08-11] MEDS: MIDAZOLAM 2 MG/2 ML INJ IV PRN ×2 (10:20→16:29)
[2020-08-11] MEDS: ENOXAPARIN 100 MG/1 ML INJ SUB-Q SCH ×2 (10:20→21:00)
[2020-08-11 10:21] LABS: Hematocrit 29.2 % (35.5-45.6); Hemoglobin 9.6 gm/dl (11.8-15.2); Mean Corpuscular HGB Conc 33 % (32-34); Mean Corpuscular Volume 97 fl (84-94); Platelet Count 142 K/mm3 (140-440); Red Blood Count 3.01 M/mm3 (3.65-5.03); Red Cell Distribution Width 13.9 % (13.2-15.2)
[2020-08-11] MEDS: CHOLECALCIFEROL (VIT D3) 5,000 UNIT TAB PO SCH (10:21)
[2020-08-11] MEDS: dexAMETHasone 4 MG/ML VIAL IV SCH (10:22)
[2020-08-11] MEDS: ZINC SULFATE 220 MG CAP PO SCH (10:22)
[2020-08-11] MEDS: ASCORBIC ACID 500 MG TAB PO SCH ×2 (10:28→21:00)
[2020-08-11 10:35] LABS: Blood Urea Nitrogen 30 mg/dL (9-20); Calcium 8.1 mg/dL (8.4-10.2); Hemolysis Index 0
[2020-08-11 10:39] LABS: BUN/Creatinine Ratio 60
--- NOTE | 2020-08-11 12:07 | Progress Note ---
Assessment and Plan 60 y/o male with chest discomfort, shortness of breath and abnormal CXR, COVID Positive 08/11/20: Day 10 of intubation. Most likely elevated bicarb is from Steroids (has been on them 25 days). No need to treat at the moment. If his serum bicarb gets about 45-46 will treat with diamox therapy. This will remove bicarb and help with volume. Hold on any further lasix therapy for now also. Will repeat Trigylcerides over the weekend. NO diprovan at this time. If more sedation is needed, can look at pentobarb or phenobarbital coma to assist with sedation. Daily labs to monitor renal function. Prognosis remains very guarded. Wean FiO2 for sats>88% 08/10/20: Day 9 of intubation. Unfortunately we must stop diprovan. Will place patient on Versed drip along with Fentanyl drip. Needs daily chemistries to assess renal function so that medication does not build up in patient system. All free water drips as well as flushes have been stopped. Will repeat Chemistry again today at 1400. Prone again today as well. Wean FiO2 for sats >88%. If able to speak with family, would I would tell them is that patient remains critically ill and we will continue to prone on a daily basis to help with oxygenation. I would also tell them we changed the sedation to prevent complications from higher levels. His renal function so far has remained stable which is a good thing but we will monitor it daily. Overall prognosis is still guarded to poor. 08/09/20: Day 8 of intubation. Continue proning as patient is tolerating this and making slow improvement. Continue PEEP at current settings. IMS will update family and I will discuss with IMS my medical opinion to be conveyed to them. 08/08/20: Prone again today. Same weaning parameters as yesterday. Will order labs for am. Calling now and see if she needs the other the family on the phone to update her. Prognosis still remains very guarded to poor. Asked RT to be as aggressive as possible with weaning FiO2. The unfortunately is not understanding how sick the patient is. I am trying my best to explain to her on a daily basis about this. But she does not accept when I tell her that he has remained stable. 08/07/20: Will prone again today. Wean FiO2 for sats >88% and PaO2 >55. Continue to monitor daily urine function and output. I again today explained the severity of the Mr. Suarez's clinical state as best I could using laymen terms. The other family member on the phone says that the communication has not bee consistent. The patient received Remdesivir while he was on the floor. He did get all 5 doses. I explained to the family that there is no indication for longer therapy or ID would have recommended. I also explained to them that I have extended the steroids to see if this would help beyond the current clinical recommendations. I also explained again that there is no cure for COVID 19 and that all measures are experimental as well as supportive. I also explained why he needs sedation while intubated and especially when proning. I am still not sure that they fully understand the extent of his illness but will continue to speak with them. Guarded prognosis. 08/06/20: Increase PEEP today to 16. Repeat gas tomorrow morning. Wean FiO2 today for sats >88%. Spoke with RT and PaO2 of 55 and greater are ok. will prone tonight for 12 hours at least. Remains in sinus tach. No labs drawn this am will order for stat this morning including BMP and Mag and Phos, CBC. Spoke with this am to update her. She is upset and asks to do everything for him that we can which I told her we would. I was also very honest about the severity of the disease which made her even more sad. 08/05/20: Did not increase PEEP yesterday. PaO2 improved on own. Will wean FiO2 down today for sats >88%. Hold on proning for now. Continue steroids. Needs better rate control. Most likely sinus tach from hypoxemia, but needs 12 lead if not done yet. Needs labs checked to assess electrolytes. Prognosis remains guarded to poor. Will attempt to reach today, if not today tomorrow. 08/04/20: Will increase PEEP to 16 today. If no improvement in the next 24 hours then will start proning patient tomorrow night. Continue steroids. Overall prognosis remains very guarded. 08/03/20: Chemistry not ordered, ordered today. Follow up blood cultures. Increased PEEP to 14 and RT will attempt to wean FiO2 back down to 50's. Will continue steroids at current dosing for now. He has already completed to origin al 10 days. Given some improvement, would like to continue. Overall prognosis remains very guarded. 08/02/20: Check blood and urine cultures along with UA. Will check repeat CXR. Repeat Chemistry tomorrow. Hold on abx therapy for right now. Prognosis remains guarded. Continue steroids. Wean FiO2 for sats >88% 08/01/20: Overall prognosis here is very very guarded to poor. Will consider proning patient later today if not able to wean FiO2 any further this afternoon. Per CM, wants to come see patient which is very reasonable. Will continue steroids despite completing 10 days of this. 07/29/20: Supportive measures. Proning and wean as tolerated. 07/28/20: No new recommendations as of right now. When beds become available will move patient down stairs for closer monitoring. 07/27/20: Difficult situation. Patient appears to be not responding to any therapy. Steroids finished yesterday. Given the degree of inflammation will restart steroids for at least another 72-96 hours. In no improvement will stop. Not much else to do medical therapy [place]. Continue to keep patient net negative. Still remains high risk for intubation and if intubated given his current response to steroids, very high mortality. 07/26/20: No new recs for today. Patient really needs to try to prone as much as possible during the day and sleep prone at night. He remains a high risk for cardiac arrest and intubation. 07/25/20: very high risk for cardiac arrest from hypoxemia, but no available beds in ICU. Given COVID status, ideally would not like to use bipap but may have to in the event of continued desats. While proning does better and does not need the mask along with HFNC. Encourage to prone as long as possible. 1. Continue steroids for 10 days. 2. Continue Remdesivir. Not a candidate for Convalescent Plasma 3. Please ask patient prone as tolerated during the day and sleep prone at night. Currently doing and tolerating 4. Agree with daily lasix but will need labs to monitor renal function and electrolytes. Needs labs for today. 5. Guarded prognosis to poor now with increasing oxygen requirement. May require intubation and high risk for cardiac arrest. CCT 31 Subjective Date of service: 08/11/20 Principal diagnosis: Acute respiratory failure with hypoxia, Covid pneumonia Interval history: No acute events. Currently on 4 of Versed and 4 of Fentanyl. Tolerated proning on yesterday. ABG stable on 60%. Urine output still good and renal function is normal. Bicarb at 41 today. Objective Vital Signs - 12hr 08/11/20 08/11/20 08/11/20 00:15 00:30 00:45 Temperature Pulse Rate 107 H 105 H 105 H Pulse Rate [ From Monitor] Respiratory 30 H 30 H 30 H Rate Blood Pressure 130/69 120/67 120/67 O2 Sat by Pulse 97 97 97 Oximetry 08/11/20 08/11/20 08/11/20 01:00 01:15 01:30 Temperature Pulse Rate 109 H 108 H 108 H Pulse Rate [ From Monitor] Respiratory 30 H 30 H 30 H Rate Blood Pressure 123/69 123/69 115/70 O2 Sat by Pulse 96 97 Oximetry 08/11/20 08/11/20 08/11/20 01:45 02:00 02:15 Temperature Pulse Rate 102 H 103 H 103 H Pulse Rate [ From Monitor] Respiratory 30 H 29 H 30 H Rate Blood Pressure 115/70 125/57 125/57 O2 Sat by Pulse 96 97 97 Oximetry 08/11/20 08/11/20 08/11/20 02:30 02:45 03:00 Temperature Pulse Rate 103 H 104 H 105 H Pulse Rate [ From Monitor] Respiratory 30 H 30 H 30 H Rate Blood Pressure 119/65 119/65 106/64 O2 Sat by Pulse 96 97 97 Oximetry 08/11/20 08/11/20 08/11/20 03:15 03:16 03:30 Temperature 100.1 F H Pulse Rate 103 H 99 H Pulse Rate [ From Monitor] Respiratory 30 H 28 H Rate Blood Pressure 106/64 100/67 O2 Sat by Pulse 97 97 Oximetry 08/11/20 08/11/20 08/11/20 03:45 04:00 04:15 Temperature Pulse Rate 109 H 92 H 101 H Pulse Rate [ 92 H From Monitor] Respiratory 30 H 30 H 30 H Rate Blood Pressure 130/64 124/68 100/67 O2 Sat by Pulse 100 95 95 Oximetry 08/11/20 08/11/20 08/11/20 04:30 04:45 05:00 Temperature Pulse Rate 103 H 103 H 107 H Pulse Rate [ From Monitor] Respiratory 30 H 30 H 30 H Rate Blood Pressure 124/68 135/69 135/65 O2 Sat by Pulse 95 95 94 Oximetry 08/11/20 08/11/20 08/11/20 05:15 05:30 05:45 Temperature Pulse Rate 99 H 100 H 106 H Pulse Rate [ From Monitor] Respiratory 30 H 30 H 30 H Rate Blood Pressure 135/65 124/68 124/68 O2 Sat by Pulse 95 94 94 Oximetry 08/11/20 08/11/20 08/11/20 06:00 06:15 06:30 Temperature Pulse Rate 101 H 105 H 104 H Pulse Rate [ From Monitor] Respiratory 30 H 30 H 30 H Rate Blood Pressure 113/65 124/68 112/70 O2 Sat by Pulse 95 95 94 Oximetry 08/11/20 08/11/20 08/11/20 06:45 07:00 07:15 Temperature Pulse Rate 103 H 102 H 105 H Pulse Rate [ From Monitor] Respiratory 30 H 30 H 30 H Rate Blood Pressure 113/65 120/69 120/69 O2 Sat by Pulse 95 95 94 Oximetry 08/11/20 08/11/20 08/11/20 07:30 07:45 08:00 Temperature Pulse Rate 104 H 109 H 102 H Pulse Rate [ 107 H From Monitor] Respiratory 30 H 30 H 31 H Rate Blood Pressure 121/69 121/69 119/74 O2 Sat by Pulse 94 94 94 Oximetry 08/11/20 08/11/20 08/11/20 08:15 08:30 08:45 Temperature Pulse Rate 105 H 93 H 114 H Pulse Rate [ From Monitor] Respiratory 30 H 30 H 30 H Rate Blood Pressure 119/74 125/80 125/80 O2 Sat by Pulse 94 94 93 Oximetry 08/11/20 08/11/20 08/11/20 08:47 09:00 09:15 Temperature Pulse Rate 101 H 110 H 110 H Pulse Rate [ From Monitor] Respiratory 31 H 26 H Rate Blood Pressure 125/80 125/80 125/74 O2 Sat by Pulse 92 92 93 Oximetry 08/11/20 08/11/20 08/11/20 09:30 09:45 10:00 Temperature Pulse Rate 113 H 110 H 112 H Pulse Rate [ From Monitor] Respiratory 28 H 30 H 30 H Rate Blood Pressure 151/76 151/76 162/75 O2 Sat by Pulse 93 93 94 Oximetry 08/11/20 08/11/20 08/11/20 10:15 10:30 10:45 Temperature Pulse Rate 112 H 114 H 113 H Pulse Rate [ From Monitor] Respiratory 25 H 30 H 18 Rate Blood Pressure 162/75 153/76 153/76 O2 Sat by Pulse 93 93 93 Oximetry 08/11/20 11:00 Temperature Pulse Rate 117 H Pulse Rate [ From Monitor] Respiratory 18 Rate Blood Pressure 145/76 O2 Sat by Pulse 93 Oximetry Constitutional: other (orally intubated on vent) Eyes: non-icteric ENT: oropharynx moist Neck: supple Ascultation: Bilateral: diminished breath sounds, rhonchi Cardiovascular: regular rate and rhythm, other (tachycardia) Gastrointestinal: normoactive bowel sounds, soft, non-tender, non-distended Integumentary: normal Extremities: no cyanosis Neurologic: normal mental status, non-focal exam CBC and BMP: 08/11/20 09:00 08/11/20 09:00 ABG, PT/INR, D-dimer: ABG ABG pH 7.421 (7.320-7.450) 08/11/20 04:33 POC ABG pCO2 66.9 mmHg (32.0-48.0) H 08/11/20 04:33 POC ABG pO2 65.2 mmHg (83-108) L 08/11/20 04:33 POC ABG HCO3 42.5 08/11/20 04:33 PT/INR, D-dimer PT 13.7 Sec. (12.2-14.9) 07/18/20 04:31 INR 1.06 (0.87-1.13) 07/18/20 04:31 D-Dimer > 04249 ng/mlDDU (0-234) H 07/26/20 10:07 Abnormal lab findings: Abnormal Labs 07/17/20 07/17/20 07/17/20 17:30 17:30 22:48 WBC RBC Hgb Hct MCV MCH MCHC 35 H RDW Plt Count Lymph % (Auto) 10.5 L Lymph # (Auto) 0.7 L Seg Neutrophils % 85.3 H Lymphocytes % (Manual) Seg Neutrophils # Seg Neutrophils # Man Lymphocytes # (Manual) D-Dimer 314.21 H ABG pH POC ABG pCO2 POC ABG pO2 ABG Hemoglobin ABG Oxyhemoglobin ABG Sodium ABG Potassium ABG Chloride ABG Glucose Sodium Potassium Chloride Carbon Dioxide BUN 1 L Creatinine Glucose 154 H POC Glucose Calcium Magnesium Ferritin Alkaline Phosphatase Lactate Dehydrogenase Total Creatine Kinase CK-MB (CK-2) C-Reactive Protein Total Protein Albumin Triglycerides Arterial Blood Glucose Arterial Blood Ionized Calcium Coronavirus (PCR) SARS-CoV-2 IgG Ab 07/17/20 07/17/20 07/18/20 22:48 22:48 04:31 WBC RBC Hgb Hct MCV MCH 33 H MCHC 35 H RDW 13.1 L Plt Count Lymph % (Auto) Lymph # (Auto) Seg Neutrophils % Lymphocytes % (Manual) 5.0 L Seg Neutrophils # Seg Neutrophils # Man 8.1 H Lymphocytes # (Manual) 0.4 L D-Dimer ABG pH POC ABG pCO2 POC ABG pO2 ABG Hemoglobin ABG Oxyhemoglobin ABG Sodium ABG Potassium ABG Chloride ABG Glucose Sodium Potassium Chloride Carbon Dioxide BUN Creatinine Glucose 124 H POC Glucose Calcium Magnesium Ferritin 889.3 H Alkaline Phosphatase Lactate Dehydrogenase 832 H Total Creatine Kinase CK-MB (CK-2) C-Reactive Protein 17.70 H Total Protein Albumin Triglycerides Arterial Blood Glucose Arterial Blood Ionized Calcium Coronavirus (PCR) SARS-CoV-2 IgG Ab 07/18/20 07/18/20 07/18/20 04:31 08:50 18:48 WBC RBC Hgb Hct MCV MCH MCHC RDW Plt Count Lymph % (Auto) Lymph # (Auto) Seg Neutrophils % Lymphocytes % (Manual) Seg Neutrophils # Seg Neutrophils # Man Lymphocytes # (Manual) D-Dimer 275.27 H ABG pH POC ABG pCO2 POC ABG pO2 ABG Hemoglobin ABG Oxyhemoglobin ABG Sodium ABG Potassium ABG Chloride ABG Glucose Sodium Potassium Chloride Carbon Dioxide 31 H D BUN 23 H Creatinine Glucose 143 H POC Glucose Calcium Magnesium Ferritin Alkaline Phosphatase Lactate Dehydrogenase Total Creatine Kinase CK-MB (CK-2) C-Reactive Protein Total Protein Albumin Triglycerides Arterial Blood Glucose Arterial Blood Ionized Calcium Coronavirus (PCR) Positive A SARS-CoV-2 IgG Ab 07/18/20 07/18/20 07/20/20 18:48 18:48 08:56 WBC RBC Hgb Hct MCV MCH MCHC RDW Plt Count Lymph % (Auto) Lymph # (Auto) Seg Neutrophils % Lymphocytes % (Manual) Seg Neutrophils # Seg Neutrophils # Man Lymphocytes # (Manual) D-Dimer ABG pH POC ABG pCO2 POC ABG pO2 ABG Hemoglobin ABG Oxyhemoglobin ABG Sodium ABG Potassium ABG Chloride ABG Glucose Sodium Potassium Chloride Carbon Dioxide BUN 22 H Creatinine Glucose 219 H POC Glucose Calcium Magnesium Ferritin 1164.0 H Alkaline Phosphatase Lactate Dehydrogenase 560 H 739 H Total Creatine Kinase CK-MB (CK-2) C-Reactive Protein 18.00 H 17.50 H Total Protein Albumin 3.0 L Triglycerides Arterial Blood Glucose Arterial Blood Ionized Calcium Coronavirus (PCR) SARS-CoV-2 IgG Ab 07/20/20 07/20/20 07/21/20 08:56 08:56 05:24 WBC RBC Hgb Hct MCV MCH MCHC RDW Plt Count Lymph % (Auto) Lymph # (Auto) Seg Neutrophils % Lymphocytes % (Manual) Seg Neutrophils # Seg Neutrophils # Man Lymphocytes # (Manual) D-Dimer 9523.70 H ABG pH POC ABG pCO2 POC ABG pO2 ABG Hemoglobin ABG Oxyhemoglobin ABG Sodium ABG Potassium ABG Chloride ABG Glucose Sodium Potassium Chloride Carbon Dioxide BUN Creatinine Glucose POC Glucose Calcium Magnesium Ferritin 1581.0 H Alkaline Phosphatase Lactate Dehydrogenase Total Creatine Kinase CK-MB (CK-2) C-Reactive Protein Total Protein Albumin Triglycerides Arterial Blood Glucose Arterial Blood Ionized Calcium Coronavirus (PCR) SARS-CoV-2 IgG Ab Reactive A 07/22/20 07/24/20 07/26/20 04:31 13:26 10:07 WBC RBC Hgb Hct MCV MCH MCHC RDW Plt Count Lymph % (Auto) Lymph # (Auto) Seg Neutrophils % Lymphocytes % (Manual) Seg Neutrophils # Seg Neutrophils # Man Lymphocytes # (Manual) D-Dimer > 04176 H ABG pH POC ABG pCO2 POC ABG pO2 ABG Hemoglobin ABG Oxyhemoglobin ABG Sodium ABG Potassium ABG Chloride ABG Glucose Sodium 146 H Potassium Chloride Carbon Dioxide 32 H BUN 28 H 26 H Creatinine Glucose 144 H 116 H POC Glucose Calcium 8.3 L Magnesium Ferritin Alkaline Phosphatase Lactate Dehydrogenase Total Creatine Kinase CK-MB (CK-2) C-Reactive Protein Total Protein Albumin 3.3 L Triglycerides Arterial Blood Glucose Arterial Blood Ionized Calcium Coronavirus (PCR) SARS-CoV-2 IgG Ab 07/26/20 07/26/20 07/27/20 10:07 10:07 19:45 WBC RBC Hgb Hct MCV MCH MCHC RDW Plt Count Lymph % (Auto) Lymph # (Auto) Seg Neutrophils % Lymphocytes % (Manual) Seg Neutrophils # Seg Neutrophils # Man Lymphocytes # (Manual) D-Dimer ABG pH POC ABG pCO2 POC ABG pO2 ABG Hemoglobin ABG Oxyhemoglobin ABG Sodium ABG Potassium ABG Chloride ABG Glucose Sodium Potassium Chloride 97.4 L Carbon Dioxide 33 H BUN 27 H Creatinine Glucose 175 H POC Glucose Calcium Magnesium Ferritin 1079.0 H Alkaline Phosphatase Lactate Dehydrogenase 708 H Total Creatine Kinase CK-MB (CK-2) C-Reactive Protein 6.10 H Total Protein Albumin Triglycerides Arterial Blood Glucose Arterial Blood Ionized Calcium Coronavirus (PCR) SARS-CoV-2 IgG Ab 07/29/20 07/30/20 07/30/20 02:09 10:33 11:54 WBC RBC Hgb Hct MCV MCH MCHC RDW Plt Count Lymph % (Auto) Lymph # (Auto) Seg Neutrophils % Lymphocytes % (Manual) Seg Neutrophils # Seg Neutrophils # Man Lymphocytes # (Manual) D-Dimer ABG pH POC ABG pCO2 POC ABG pO2 ABG Hemoglobin ABG Oxyhemoglobin ABG Sodium ABG Potassium ABG Chloride ABG Glucose Sodium Potassium Chloride Carbon Dioxide BUN Creatinine Glucose POC Glucose 183 H Calcium Magnesium 3.00 H Ferritin Alkaline Phosphatase Lactate Dehydrogenase Total Creatine Kinase 174 H CK-MB (CK-2) 4.5 H C-Reactive Protein Total Protein Albumin Triglycerides Arterial Blood Glucose Arterial Blood Ionized Calcium Coronavirus (PCR) SARS-CoV-2 IgG Ab 07/30/20 07/30/20 07/31/20 17:30 23:08 11:04 WBC RBC Hgb Hct MCV MCH MCHC RDW Plt Count Lymph % (Auto) Lymph # (Auto) Seg Neutrophils % Lymphocytes % (Manual) Seg Neutrophils # Seg Neutrophils # Man Lymphocytes # (Manual) D-Dimer ABG pH POC ABG pCO2 POC ABG pO2 ABG Hemoglobin ABG Oxyhemoglobin ABG Sodium ABG Potassium ABG Chloride ABG Glucose Sodium 151 H D Potassium Chloride 109.2 H Carbon Dioxide 32 H BUN 48 H Creatinine Glucose 165 H POC Glucose 199 H 194 H Calcium Magnesium Ferritin Alkaline Phosphatase 168 H Lactate Dehydrogenase Total Creatine Kinase CK-MB (CK-2) C-Reactive Protein Total Protein Albumin 3.1 L Triglycerides Arterial Blood Glucose Arterial Blood Ionized Calcium Coronavirus (PCR) SARS-CoV-2 IgG Ab 07/31/20 07/31/20 07/31/20 11:18 11:23 17:47 WBC RBC Hgb Hct MCV MCH MCHC RDW Plt Count Lymph % (Auto) Lymph # (Auto) Seg Neutrophils % Lymphocytes % (Manual) Seg Neutrophils # Seg Neutrophils # Man Lymphocytes # (Manual) D-Dimer ABG pH POC ABG pCO2 56.6 H POC ABG pO2 73.1 L ABG Hemoglobin ABG Oxyhemoglobin 92.1 L ABG Sodium ABG Potassium ABG Chloride 108.0 H ABG Glucose 169 H Sodium Potassium Chloride Carbon Dioxide BUN Creatinine Glucose POC Glucose 156 H 169 H Calcium Magnesium Ferritin Alkaline Phosphatase Lactate Dehydrogenase Total Creatine Kinase CK-MB (CK-2) C-Reactive Protein Total Protein Albumin Triglycerides Arterial Blood Glucose 169 H Arterial Blood Ionized Calcium Coronavirus (PCR) SARS-CoV-2 IgG Ab 07/31/20 07/31/20 07/31/20 20:58 23:18 23:55 WBC 19.8 H RBC Hgb Hct MCV 95 H MCH MCHC RDW 13.0 L Plt Count Lymph % (Auto) Lymph # (Auto) Seg Neutrophils % Lymphocytes % (Manual) Seg Neutrophils # Seg Neutrophils # Man Lymphocytes # (Manual) D-Dimer ABG pH POC ABG pCO2 POC ABG pO2 ABG Hemoglobin ABG Oxyhemoglobin ABG Sodium ABG Potassium ABG Chloride ABG Glucose Sodium Potassium Chloride Carbon Dioxide BUN Creatinine Glucose POC Glucose 293 H 211 H Calcium Magnesium Ferritin Alkaline Phosphatase Lactate Dehydrogenase Total Creatine Kinase CK-MB (CK-2) C-Reactive Protein Total Protein Albumin Triglycerides Arterial Blood Glucose Arterial Blood Ionized Calcium Coronavirus (PCR) SARS-CoV-2 IgG Ab 08/01/20 08/01/20 08/01/20 03:47 08:30 12:27 WBC RBC Hgb Hct MCV MCH MCHC RDW Plt Count Lymph % (Auto) Lymph # (Auto) Seg Neutrophils % Lymphocytes % (Manual) Seg Neutrophils # Seg Neutrophils # Man Lymphocytes # (Manual) D-Dimer ABG pH POC ABG pCO2 49.8 H POC ABG pO2 123.4 H ABG Hemoglobin ABG Oxyhemoglobin ABG Sodium ABG Potassium 4.6 H ABG Chloride 111.0 H ABG Glucose 130 H Sodium 154 H Potassium Chloride 115.1 H Carbon Dioxide 32 H BUN 49 H Creatinine Glucose 492 H POC Glucose 161 H Calcium 7.2 L D Magnesium Ferritin Alkaline Phosphatase Lactate Dehydrogenase Total Creatine Kinase CK-MB (CK-2) C-Reactive Protein Total Protein Albumin Triglycerides Arterial Blood Glucose 130 H Arterial Blood Ionized Calcium 4.5 L Coronavirus (PCR) SARS-CoV-2 IgG Ab 08/01/20 08/01/20 08/02/20 16:55 23:06 05:00 WBC RBC Hgb Hct MCV MCH MCHC RDW Plt Count Lymph % (Auto) Lymph # (Auto) Seg Neutrophils % Lymphocytes % (Manual) Seg Neutrophils # Seg Neutrophils # Man Lymphocytes # (Manual) D-Dimer ABG pH POC ABG pCO2 52.5 H POC ABG pO2 69.8 L ABG Hemoglobin ABG Oxyhemoglobin ABG Sodium 147.2 H ABG Potassium ABG Chloride 110.0 H ABG Glucose 177 H Sodium Potassium Chloride Carbon Dioxide BUN Creatinine Glucose POC Glucose 195 H 162 H Calcium Magnesium Ferritin Alkaline Phosphatase Lactate Dehydrogenase Total Creatine Kinase CK-MB (CK-2) C-Reactive Protein Total Protein Albumin Triglycerides Arterial Blood Glucose 177 H Arterial Blood Ionized Calcium Coronavirus (PCR) SARS-CoV-2 IgG Ab 08/02/20 08/02/20 08/02/20 05:01 12:05 17:13 WBC RBC Hgb Hct MCV MCH MCHC RDW Plt Count Lymph % (Auto) Lymph # (Auto) Seg Neutrophils % Lymphocytes % (Manual) Seg Neutrophils # Seg Neutrophils # Man Lymphocytes # (Manual) D-Dimer ABG pH POC ABG pCO2 POC ABG pO2 ABG Hemoglobin ABG Oxyhemoglobin ABG Sodium ABG Potassium ABG Chloride ABG Glucose Sodium Potassium Chloride Carbon Dioxide BUN Creatinine Glucose POC Glucose 146 H 166 H 209 H Calcium Magnesium Ferritin Alkaline Phosphatase Lactate Dehydrogenase Total Creatine Kinase CK-MB (CK-2) C-Reactive Protein Total Protein Albumin Triglycerides Arterial Blood Glucose Arterial Blood Ionized Calcium Coronavirus (PCR) SARS-CoV-2 IgG Ab 08/02/20 08/03/20 08/03/20 23:26 04:06 04:34 WBC RBC Hgb Hct MCV MCH MCHC RDW Plt Count Lymph % (Auto) Lymph # (Auto) Seg Neutrophils % Lymphocytes % (Manual) Seg Neutrophils # Seg Neutrophils # Man Lymphocytes # (Manual) D-Dimer ABG pH POC ABG pCO2 55.6 H POC ABG pO2 66.1 L ABG Hemoglobin 11.9 L ABG Oxyhemoglobin 91.1 L ABG Sodium 145.7 H ABG Potassium 4.8 H ABG Chloride 111.0 H ABG Glucose 195 H Sodium Potassium Chloride Carbon Dioxide BUN Creatinine Glucose POC Glucose 157 H Calcium Magnesium Ferritin Alkaline Phosphatase Lactate Dehydrogenase Total Creatine Kinase CK-MB (CK-2) C-Reactive Protein Total Protein Albumin Triglycerides 207 H Arterial Blood Glucose 195 H Arterial Blood Ionized Calcium Coronavirus (PCR) SARS-CoV-2 IgG Ab 08/03/20 08/03/20 08/03/20 05:00 11:55 17:15 WBC RBC Hgb Hct MCV MCH MCHC RDW Plt Count Lymph % (Auto) Lymph # (Auto) Seg Neutrophils % Lymphocytes % (Manual) Seg Neutrophils # Seg Neutrophils # Man Lymphocytes # (Manual) D-Dimer ABG pH POC ABG pCO2 POC ABG pO2 ABG Hemoglobin ABG Oxyhemoglobin ABG Sodium ABG Potassium ABG Chloride ABG Glucose Sodium Potassium Chloride Carbon Dioxide BUN Creatinine Glucose POC Glucose 179 H 173 H 217 H Calcium Magnesium Ferritin Alkaline Phosphatase Lactate Dehydrogenase Total Creatine Kinase CK-MB (CK-2) C-Reactive Protein Total Protein Albumin Triglycerides Arterial Blood Glucose Arterial Blood Ionized Calcium Coronavirus (PCR) SARS-CoV-2 IgG Ab 08/03/20 08/04/20 08/04/20 23:01 03:59 05:30 WBC RBC Hgb Hct MCV MCH MCHC RDW Plt Count Lymph % (Auto) Lymph # (Auto) Seg Neutrophils % Lymphocytes % (Manual) Seg Neutrophils # Seg Neutrophils # Man Lymphocytes # (Manual) D-Dimer ABG pH POC ABG pCO2 54.6 H POC ABG pO2 66.2 L ABG Hemoglobin 10.8 L ABG Oxyhemoglobin 91.5 L ABG Sodium ABG Potassium ABG Chloride 110.0 H ABG Glucose 201 H Sodium Potassium Chloride Carbon Dioxide BUN Creatinine Glucose POC Glucose 222 H 137 H Calcium Magnesium Ferritin Alkaline Phosphatase Lactate Dehydrogenase Total Creatine Kinase CK-MB (CK-2) C-Reactive Protein Total Protein Albumin Triglycerides Arterial Blood Glucose 201 H Arterial Blood Ionized Calcium Coronavirus (PCR) SARS-CoV-2 IgG Ab 08/04/20 08/04/20 08/04/20 06:57 11:50 17:29 WBC RBC Hgb Hct MCV MCH MCHC RDW Plt Count Lymph % (Auto) Lymph # (Auto) Seg Neutrophils % Lymphocytes % (Manual) Seg Neutrophils # Seg Neutrophils # Man Lymphocytes # (Manual) D-Dimer ABG pH POC ABG pCO2 POC ABG pO2 ABG Hemoglobin ABG Oxyhemoglobin ABG Sodium ABG Potassium ABG Chloride ABG Glucose Sodium 151 H Potassium Chloride 111.3 H Carbon Dioxide 36 H BUN 32 H Creatinine Glucose 160 H POC Glucose 158 H 180 H Calcium 8.2 L Magnesium 2.60 H Ferritin Alkaline Phosphatase Lactate Dehydrogenase Total Creatine Kinase CK-MB (CK-2) C-Reactive Protein Total Protein Albumin Triglycerides Arterial Blood Glucose Arterial Blood Ionized Calcium Coronavirus (PCR) SARS-CoV-2 IgG Ab 08/04/20 08/05/20 08/05/20 23:01 04:49 05:11 WBC RBC Hgb Hct MCV MCH MCHC RDW Plt Count Lymph % (Auto) Lymph # (Auto) Seg Neutrophils % Lymphocytes % (Manual) Seg Neutrophils # Seg Neutrophils # Man Lymphocytes # (Manual) D-Dimer ABG pH POC ABG pCO2 56.7 H POC ABG pO2 80.6 L ABG Hemoglobin 10.9 L ABG Oxyhemoglobin ABG Sodium 145.9 H ABG Potassium ABG Chloride 109.0 H ABG Glucose 160 H Sodium Potassium Chloride Carbon Dioxide BUN Creatinine Glucose POC Glucose 160 H 134 H Calcium Magnesium Ferritin Alkaline Phosphatase Lactate Dehydrogenase Total Creatine Kinase CK-MB (CK-2) C-Reactive Protein Total Protein Albumin Triglycerides Arterial Blood Glucose 160 H Arterial Blood Ionized Calcium Coronavirus (PCR) SARS-CoV-2 IgG Ab 08/05/20 08/05/20 08/05/20 11:40 16:54 23:29 WBC RBC Hgb Hct MCV MCH MCHC RDW Plt Count Lymph % (Auto) Lymph # (Auto) Seg Neutrophils % Lymphocytes % (Manual) Seg Neutrophils # Seg Neutrophils # Man Lymphocytes # (Manual) D-Dimer ABG pH POC ABG pCO2 POC ABG pO2 ABG Hemoglobin ABG Oxyhemoglobin ABG Sodium ABG Potassium ABG Chloride ABG Glucose Sodium Potassium Chloride Carbon Dioxide BUN Creatinine Glucose POC Glucose 137 H 243 H 154 H Calcium Magnesium Ferritin Alkaline Phosphatase Lactate Dehydrogenase Total Creatine Kinase CK-MB (CK-2) C-Reactive Protein Total Protein Albumin Triglycerides Arterial Blood Glucose Arterial Blood Ionized Calcium Coronavirus (PCR) SARS-CoV-2 IgG Ab 08/06/20 08/06/20 08/06/20 05:24 06:00 08:59 WBC 14.1 H RBC Hgb 11.5 L Hct MCV 98 H MCH MCHC RDW Plt Count 107 L Lymph % (Auto) Lymph # (Auto) Seg Neutrophils % Lymphocytes % (Manual) Seg Neutrophils # Seg Neutrophils # Man Lymphocytes # (Manual) D-Dimer ABG pH POC ABG pCO2 58.9 H POC ABG pO2 53.0 L ABG Hemoglobin ABG Oxyhemoglobin 85.7 L ABG Sodium 148.4 H ABG Potassium 4.7 H ABG Chloride 109.0 H ABG Glucose 125 H Sodium Potassium Chloride Carbon Dioxide BUN Creatinine Glucose POC Glucose 122 H Calcium Magnesium Ferritin Alkaline Phosphatase Lactate Dehydrogenase Total Creatine Kinase CK-MB (CK-2) C-Reactive Protein Total Protein Albumin Triglycerides Arterial Blood Glucose 125 H Arterial Blood Ionized Calcium Coronavirus (PCR) SARS-CoV-2 IgG Ab 08/06/20 08/06/20 08/06/20 08:59 12:34 17:43 WBC RBC Hgb Hct MCV MCH MCHC RDW Plt Count Lymph % (Auto) Lymph # (Auto) Seg Neutrophils % Lymphocytes % (Manual) Seg Neutrophils # Seg Neutrophils # Man Lymphocytes # (Manual) D-Dimer ABG pH POC ABG pCO2 POC ABG pO2 ABG Hemoglobin ABG Oxyhemoglobin ABG Sodium ABG Potassium ABG Chloride ABG Glucose Sodium 151 H Potassium Chloride 110.7 H Carbon Dioxide 36 H BUN 29 H Creatinine 0.7 L Glucose 194 H POC Glucose 193 H 204 H Calcium Magnesium Ferritin Alkaline Phosphatase Lactate Dehydrogenase Total Creatine Kinase CK-MB (CK-2) C-Reactive Protein Total Protein Albumin Triglycerides Arterial Blood Glucose Arterial Blood Ionized Calcium Coronavirus (PCR) SARS-CoV-2 IgG Ab 08/06/20 08/07/20 08/07/20 23:25 04:00 04:00 WBC RBC 3.59 L Hgb 11.3 L Hct 35.0 L MCV 97 H MCH MCHC RDW Plt Count 103 L Lymph % (Auto) 11.5 L Lymph # (Auto) Seg Neutrophils % 82.9 H Lymphocytes % (Manual) Seg Neutrophils # 9.0 H Seg Neutrophils # Man Lymphocytes # (Manual) D-Dimer ABG pH POC ABG pCO2 POC ABG pO2 ABG Hemoglobin ABG Oxyhemoglobin ABG Sodium ABG Potassium ABG Chloride ABG Glucose Sodium 151 H Potassium Chloride 109.6 H Carbon Dioxide 34 H BUN 29 H Creatinine 0.5 L Glucose 134 H POC Glucose 150 H Calcium Magnesium Ferritin Alkaline Phosphatase Lactate Dehydrogenase Total Creatine Kinase CK-MB (CK-2) C-Reactive Protein Total Protein 5.4 L Albumin 2.8 L Triglycerides Arterial Blood Glucose Arterial Blood Ionized Calcium Coronavirus (PCR) SARS-CoV-2 IgG Ab 08/07/20 08/07/20 08/07/20 04:00 04:55 05:16 WBC RBC Hgb Hct MCV MCH MCHC RDW Plt Count Lymph % (Auto) Lymph # (Auto) Seg Neutrophils % Lymphocytes % (Manual) Seg Neutrophils # Seg Neutrophils # Man Lymphocytes # (Manual) D-Dimer ABG pH POC ABG pCO2 62.8 H POC ABG pO2 75.0 L ABG Hemoglobin 11.9 L ABG Oxyhemoglobin 93.2 L ABG Sodium 148.2 H ABG Potassium ABG Chloride 108.0 H ABG Glucose 150 H Sodium Potassium Chloride Carbon Dioxide BUN Creatinine Glucose POC Glucose 116 H Calcium Magnesium Ferritin Alkaline Phosphatase Lactate Dehydrogenase Total Creatine Kinase CK-MB (CK-2) C-Reactive Protein Total Protein Albumin Triglycerides 250 H Arterial Blood Glucose 150 H Arterial Blood Ionized Calcium Coronavirus (PCR) SARS-CoV-2 IgG Ab 08/07/20 08/07/20 08/07/20 12:36 17:46 23:09 WBC RBC Hgb Hct MCV MCH MCHC RDW Plt Count Lymph % (Auto) Lymph # (Auto) Seg Neutrophils % Lymphocytes % (Manual) Seg Neutrophils # Seg Neutrophils # Man Lymphocytes # (Manual) D-Dimer ABG pH POC ABG pCO2 POC ABG pO2 ABG Hemoglobin ABG Oxyhemoglobin ABG Sodium ABG Potassium ABG Chloride ABG Glucose Sodium Potassium Chloride Carbon Dioxide BUN Creatinine Glucose POC Glucose 160 H 168 H 111 H Calcium Magnesium Ferritin Alkaline Phosphatase Lactate Dehydrogenase Total Creatine Kinase CK-MB (CK-2) C-Reactive Protein Total Protein Albumin Triglycerides Arterial Blood Glucose Arterial Blood Ionized Calcium Coronavirus (PCR) SARS-CoV-2 IgG Ab 08/08/20 08/08/20 08/08/20 04:41 05:13 11:57 WBC RBC Hgb Hct MCV MCH MCHC RDW Plt Count Lymph % (Auto) Lymph # (Auto) Seg Neutrophils % Lymphocytes % (Manual) Seg Neutrophils # Seg Neutrophils # Man Lymphocytes # (Manual) D-Dimer ABG pH POC ABG pCO2 63.1 H POC ABG pO2 70.7 L ABG Hemoglobin 11.5 L ABG Oxyhemoglobin 91.0 L ABG Sodium 148.5 H ABG Potassium ABG Chloride 108.0 H ABG Glucose 102 H Sodium Potassium Chloride Carbon Dioxide BUN Creatinine Glucose POC Glucose 122 H 225 H Calcium Magnesium Ferritin Alkaline Phosphatase Lactate Dehydrogenase Total Creatine Kinase CK-MB (CK-2) C-Reactive Protein Total Protein Albumin Triglycerides Arterial Blood Glucose 102 H Arterial Blood Ionized Calcium Coronavirus (PCR) SARS-CoV-2 IgG Ab 08/08/20 08/08/20 08/09/20 17:16 23:06 05:22 WBC RBC Hgb Hct MCV MCH MCHC RDW Plt Count Lymph % (Auto) Lymph # (Auto) Seg Neutrophils % Lymphocytes % (Manual) Seg Neutrophils # Seg Neutrophils # Man Lymphocytes # (Manual) D-Dimer ABG pH POC ABG pCO2 POC ABG pO2 ABG Hemoglobin ABG Oxyhemoglobin ABG Sodium ABG Potassium ABG Chloride ABG Glucose Sodium Potassium Chloride Carbon Dioxide BUN Creatinine Glucose POC Glucose 188 H 129 H 112 H Calcium Magnesium Ferritin Alkaline Phosphatase Lactate Dehydrogenase Total Creatine Kinase CK-MB (CK-2) C-Reactive Protein Total Protein Albumin Triglycerides Arterial Blood Glucose Arterial Blood Ionized Calcium Coronavirus (PCR) SARS-CoV-2 IgG Ab 08/09/20 08/09/20 08/09/20 05:44 06:49 11:56 WBC RBC Hgb Hct MCV MCH MCHC RDW Plt Count Lymph % (Auto) Lymph # (Auto) Seg Neutrophils % Lymphocytes % (Manual) Seg Neutrophils # Seg Neutrophils # Man Lymphocytes # (Manual) D-Dimer ABG pH POC ABG pCO2 67.9 H POC ABG pO2 73.4 L ABG Hemoglobin 10.8 L ABG Oxyhemoglobin 92.7 L ABG Sodium 146.4 H ABG Potassium ABG Chloride ABG Glucose 165 H Sodium 151 H Potassium Chloride 108.8 H Carbon Dioxide 39 H BUN 32 H Creatinine 0.6 L Glucose 189 H POC Glucose 217 H Calcium 8.1 L Magnesium Ferritin Alkaline Phosphatase Lactate Dehydrogenase Total Creatine Kinase CK-MB (CK-2) C-Reactive Protein Total Protein Albumin Triglycerides Arterial Blood Glucose 165 H Arterial Blood Ionized Calcium Coronavirus (PCR) SARS-CoV-2 IgG Ab 08/09/20 08/09/20 08/10/20 17:01 23:35 05:00 WBC RBC Hgb Hct MCV MCH MCHC RDW Plt Count Lymph % (Auto) Lymph # (Auto) Seg Neutrophils % Lymphocytes % (Manual) Seg Neutrophils # Seg Neutrophils # Man Lymphocytes # (Manual) D-Dimer ABG pH POC ABG pCO2 POC ABG pO2 ABG Hemoglobin ABG Oxyhemoglobin ABG Sodium ABG Potassium ABG Chloride ABG Glucose Sodium 125 L D Potassium 3.5 L Chloride 88.7 L Carbon Dioxide 35 H BUN 25 H Creatinine 0.5 L Glucose 465 H POC Glucose 172 H 125 H Calcium 6.3 L D Magnesium Ferritin Alkaline Phosphatase Lactate Dehydrogenase Total Creatine Kinase CK-MB (CK-2) C-Reactive Protein Total Protein Albumin Triglycerides 1175 H Arterial Blood Glucose Arterial Blood Ionized Calcium Coronavirus (PCR) SARS-CoV-2 IgG Ab 08/10/20 08/10/20 08/10/20 05:09 05:24 08:00 WBC RBC Hgb Hct MCV MCH MCHC RDW Plt Count Lymph % (Auto) Lymph # (Auto) Seg Neutrophils % Lymphocytes % (Manual) Seg Neutrophils # Seg Neutrophils # Man Lymphocytes # (Manual) D-Dimer ABG pH 7.306 L POC ABG pCO2 75.1 H POC ABG pO2 76.1 L ABG Hemoglobin 10.7 L ABG Oxyhemoglobin ABG Sodium ABG Potassium ABG Chloride ABG Glucose 177 H Sodium 131 L Potassium Chloride 93.0 L Carbon Dioxide 35 H BUN 28 H Creatinine 0.6 L Glucose 433 H POC Glucose 161 H Calcium 6.6 L Magnesium Ferritin Alkaline Phosphatase Lactate Dehydrogenase Total Creatine Kinase CK-MB (CK-2) C-Reactive Protein Total Protein Albumin Triglycerides 869 H Arterial Blood Glucose 177 H Arterial Blood Ionized Calcium Coronavirus (PCR) SARS-CoV-2 IgG Ab 08/10/20 08/10/20 08/10/20 11:15 13:23 13:23 WBC RBC 3.18 L Hgb 10.1 L Hct 31.3 L MCV 98 H MCH MCHC RDW Plt Count 123 L Lymph % (Auto) Lymph # (Auto) Seg Neutrophils % Lymphocytes % (Manual) Seg Neutrophils # Seg Neutrophils # Man Lymphocytes # (Manual) D-Dimer ABG pH POC ABG pCO2 POC ABG pO2 ABG Hemoglobin ABG Oxyhemoglobin ABG Sodium ABG Potassium ABG Chloride ABG Glucose Sodium Potassium Chloride Carbon Dioxide 37 H BUN 29 H Creatinine 0.6 L Glucose 313 H POC Glucose 246 H Calcium 7.4 L Magnesium Ferritin Alkaline Phosphatase Lactate Dehydrogenase Total Creatine Kinase CK-MB (CK-2) C-Reactive Protein Total Protein Albumin Triglycerides Arterial Blood Glucose Arterial Blood Ionized Calcium Coronavirus (PCR) SARS-CoV-2 IgG Ab 08/10/20 08/10/20 08/10/20 13:23 16:43 23:20 WBC RBC Hgb Hct MCV MCH MCHC RDW Plt Count Lymph % (Auto) Lymph # (Auto) Seg Neutrophils % Lymphocytes % (Manual) Seg Neutrophils # Seg Neutrophils # Man Lymphocytes # (Manual) D-Dimer ABG pH POC ABG pCO2 POC ABG pO2 ABG Hemoglobin ABG Oxyhemoglobin ABG Sodium ABG Potassium ABG Chloride ABG Glucose Sodium Potassium Chloride Carbon Dioxide BUN Creatinine Glucose POC Glucose 238 H 111 H Calcium Magnesium Ferritin Alkaline Phosphatase Lactate Dehydrogenase Total Creatine Kinase CK-MB (CK-2) C-Reactive Protein 22.70 H Total Protein Albumin Triglycerides Arterial Blood Glucose Arterial Blood Ionized Calcium Coronavirus (PCR) SARS-CoV-2 IgG Ab 08/11/20 08/11/20 08/11/20 04:33 05:19 09:00 WBC RBC Hgb Hct MCV MCH MCHC RDW Plt Count Lymph % (Auto) Lymph # (Auto) Seg Neutrophils % Lymphocytes % (Manual) Seg Neutrophils # Seg Neutrophils # Man Lymphocytes # (Manual) D-Dimer ABG pH POC ABG pCO2 66.9 H POC ABG pO2 65.2 L ABG Hemoglobin 10.5 L ABG Oxyhemoglobin 91.7 L ABG Sodium ABG Potassium ABG Chloride ABG Glucose 124 H Sodium Potassium Chloride Carbon Dioxide 41 H* BUN 30 H Creatinine 0.5 L Glucose 204 H POC Glucose 106 H Calcium 8.1 L Magnesium Ferritin Alkaline Phosphatase Lactate Dehydrogenase Total Creatine Kinase CK-MB (CK-2) C-Reactive Protein Total Protein Albumin Triglycerides Arterial Blood Glucose 124 H Arterial Blood Ionized Calcium 4.5 L Coronavirus (PCR) SARS-CoV-2 IgG Ab 08/11/20 09:00 WBC RBC 3.01 L Hgb 9.6 L Hct 29.2 L MCV 97 H MCH MCHC RDW Plt Count Lymph % (Auto) Lymph # (Auto) Seg Neutrophils % Lymphocytes % (Manual) Seg Neutrophils # Seg Neutrophils # Man Lymphocytes # (Manual) D-Dimer ABG pH POC ABG pCO2 POC ABG pO2 ABG Hemoglobin ABG Oxyhemoglobin ABG Sodium ABG Potassium ABG Chloride ABG Glucose Sodium Potassium Chloride Carbon Dioxide BUN Creatinine Glucose POC Glucose Calcium Magnesium Ferritin Alkaline Phosphatase Lactate Dehydrogenase Total Creatine Kinase CK-MB (CK-2) C-Reactive Protein Total Protein Albumin Triglycerides Arterial Blood Glucose Arterial Blood Ionized Calcium Coronavirus (PCR) SARS-CoV-2 IgG Ab
[2020-08-11] MEDS: LORazepam 2 MG/ML VIAL IV PRN (13:45)
[2020-08-11] MEDS: traZODone 50 MG TAB PO SCH (21:00)
[2020-08-12] MEDS: INSULIN LISPRO 100 UNIT/ML VIAL 3 mL SUB-Q SCH ×4 (00:09→18:18)
[2020-08-12] MEDS: MIDAZOLAM 100 MG in SODIUM CHLORIDE 0.9% 80 ML IV SCH ×2 (02:39→22:25)
[2020-08-12] MEDS: fentaNYL DRIP Premix 2,000 MCG/100 ML BAG IV SCH ×4 (03:53→22:00)
[2020-08-12 05:25] LABS: Hematocrit 28.7 % (35.5-45.6); Hemoglobin 9.4 gm/dl (11.8-15.2); Mean Corpuscular HGB Conc 33 % (32-34); Mean Corpuscular Volume 97 fl (84-94); Platelet Count 167 K/mm3 (140-440); Red Blood Count 2.98 M/mm3 (3.65-5.03); Red Cell Distribution Width 13.8 % (13.2-15.2)
[2020-08-12 05:36] LABS: Blood Urea Nitrogen 31 mg/dL (9-20); Hemolysis Index 2
[2020-08-12 05:47] LABS: BUN/Creatinine Ratio 62
--- NOTE | 2020-08-12 07:47 | Progress Note ---
Assessment and Plan Culture: Blood culture 08/02/2020 no growth Urine culture 08/02/2020<10,000 mixed bacteria Tracheal aspirate 08/02/2020 for specimen Blood culture 08/10/2020 no growth today Assessment: 60 years old male initially admitted on 07/17/2020 secondary to 2- week history of shortness of breath and cough, found to have severe COVID-19 pneumonia, treated with Decadron and remdesivir, respiratory failure worsened intubated on 07/31/2020, remains on the ventilator since then, noted with a new intermittent fever on 08/01/2020 until yesterday: #New SIRS rule out sepsis: Not present on admission. Of unclear etiology. Possibilities: CAUTI, nosocomial pneumonia (however recent chest x-ray shows improved infiltrates), DVT/PEs?, Opportunistic infection due to prolonged steroid use (on dexamethasone for over 25 days) #Critical COVID-19 pneumonia: Inflammatory markers elevated. D-dimer was > 10,000, CT chest shows no pulmonary embolism, positive bilateral groundglass opacities. Venous ultrasound no DVT. #Acute hypoxemic respiratory failure: Patient intubated, likely secondary to COVID-19. #Right lip lesion:? Herpes labialis Recommendations: -Follow-up repeat blood cultures -Repeat tracheal aspirate -Obtain MRSA PCR -Obtain urinalysis, patient has a Cabrera -Check procalcitonin -Repeat Covid markers -Anticoagulation per protocol -Start cefepime 2 g IV every 12 hours empirically for now -Start Valtrex 2 g p.o. twice daily x1 day -Consider taper off Decadron Guarded prognosis Nola Canas MD [facility] ([facility]) Office [phone] Subjective Date of service: 08/12/20 Principal diagnosis: Acute respiratory failure with hypoxia, Covid pneumonia Interval history: Reconsult: 60 years old male initially admitted on 07/17/2020 secondary to 2- week history of shortness of breath and cough, found to have severe COVID-19 pneumonia. Seen by ID on 07/18/2020, treated with Decadron and remdesivir. Patient received empiric antibiotic for 5 days. Procalcitonin was elevated at 0.9. ID signed off on 07/21/2020. ID reconsulted due to persistent fever. Patient noted to have new fever on 08/01/2020 on and off up to 101.6 until 08/06/2020. Leukocytosis resolved. Patient has remained intubated since 07/31/2020, currently on the ventilator, intermittently prone, sedated. Noted D- dimer> 10,000. CTA chest on admission shows no pulmonary embolism, but bilateral groundglass opacities. Venous ultrasound shows no DVT. Objective - Exam Narrative Exam: General appearance: Sedated, intubated Eyes: anicteric sclerae, moist conjunctivae; no lid-lag; PERRLA HENT: Normocephalic, Atraumatic; normal external ears, nares open, oropharynx endotracheal tube in place, right leg ulcer Neck: supple, tracheal midline, no JVD Lungs: Diminished breath sound bilaterally CV: RRR no murmur Abdomen: Soft, nontender. Cabrera catheter in place Extremities: no edema, no cyanosis Skin: Right lip ulceration Psych: Sedated Neuro: Sedated - Constitutional Vitals: Vital Signs Temp Pulse Resp BP Pulse Ox 99.3 F 104 H 19 130/70 93 08/12/20 03:20 08/12/20 07:32 08/12/20 06:00 08/12/20 07:32 08/12/20 07:32 Temperature -Last 24 Hours Temperature 99.3 F Temperature 99.3 F Temperature 98.8 F Temperature 99.2 F Temperature 99.6 F Temperature 99.4 F - Labs CBC & Chem 7: 08/12/20 04:00 08/12/20 04:00 Labs: Abnormal lab results 08/11/20 08/11/20 08/11/20 Range/Units 09:00 09:00 12:08 RBC 3.01 L (3.65-5.03) M/mm3 Hgb 9.6 L (11.8-15.2) gm/dl Hct 29.2 L (35.5-45.6) % MCV 97 H (84-94) fl POC ABG pCO2 (32.0-48.0) mmHg ABG Hemoglobin (12.0-17.5) ABG Sodium (136.0-145.0) mmol/L ABG Glucose (65-95) mg/dL Sodium (137-145) mmol/L Carbon Dioxide 41 H* (22-30) mmol/L BUN 30 H (9-20) mg/dL Creatinine 0.5 L (0.8-1.3) mg/dL Glucose 204 H (75-100) mg/dL POC Glucose 201 H (70-105) mg/dL Calcium 8.1 L (8.4-10.2) mg/dL Arterial Blood Glucose (65-95) mg/dL 08/11/20 08/11/20 08/12/20 Range/Units 17:01 23:17 03:31 RBC (3.65-5.03) M/mm3 Hgb (11.8-15.2) gm/dl Hct (35.5-45.6) % MCV (84-94) fl POC ABG pCO2 65.1 H (32.0-48.0) mmHg ABG Hemoglobin 9.9 L (12.0-17.5) ABG Sodium 145.6 H (136.0-145.0) mmol/L ABG Glucose 106 H (65-95) mg/dL Sodium (137-145) mmol/L Carbon Dioxide (22-30) mmol/L BUN (9-20) mg/dL Creatinine (0.8-1.3) mg/dL Glucose (75-100) mg/dL POC Glucose 150 H 128 H (70-105) mg/dL Calcium (8.4-10.2) mg/dL Arterial Blood Glucose 106 H (65-95) mg/dL 08/12/20 08/12/20 Range/Units 04:00 04:00 RBC 2.98 L (3.65-5.03) M/mm3 Hgb 9.4 L (11.8-15.2) gm/dl Hct 28.7 L (35.5-45.6) % MCV 97 H (84-94) fl POC ABG pCO2 (32.0-48.0) mmHg ABG Hemoglobin (12.0-17.5) ABG Sodium (136.0-145.0) mmol/L ABG Glucose (65-95) mg/dL Sodium 149 H (137-145) mmol/L Carbon Dioxide 39 H (22-30) mmol/L BUN 31 H (9-20) mg/dL Creatinine 0.5 L (0.8-1.3) mg/dL Glucose (75-100) mg/dL POC Glucose (70-105) mg/dL Calcium 8.0 L (8.4-10.2) mg/dL Arterial Blood Glucose (65-95) mg/dL
[2020-08-12 08:18] LABS: BUN/Creatinine Ratio 66; Blood Urea Nitrogen 33 mg/dL (9-20); Calcium 8.1 mg/dL (8.4-10.2); Hemolysis Index 4
--- NOTE | 2020-08-12 08:36 | Progress Note ---
Assessment and Plan Assessment and plan: 60 YO Male HD #23 with acute hypoxemic respiratory failure, bilateral pneumonia secondary to coronavirus infection, cough who is currently intubated and on ventilatory support. Patient has poor prognosis. Patient currently unable to be weaned from ventilatory support. Patient has poor prognosis. No acute decompensation overnight. Closely monitor the patient and adjust management as needed Follow CTA chest, and inflammatory markers Consults recommendations noted and appreciated Plan of care reviewed with the patient and his nurse 07/20; patient is severely hypoxemic, on high flow oxygen 40 L/100%/O2 sats 95 Elevated D-dimers, patient is severely hypoxemic, will check CTA chest to rule out PE Also consider lower extremity venous Doppler to rule out DVT 07/21: Patient remains on high flow oxygen however mild improvement from 40 L to 35 l Tolerating prone position, continue steroids remdesivir CTA chest negative for PE, lower extremity venous Doppler negative for DVT Consults recommendations noted and appreciated Poor prognosis, patient is aware 07/22/2020; patient feels slightly better remains on high flow oxygen however lower than yesterday 35 L/95% /O2 sat 94% 07/21/2020 advised the patient to rest in prone position as tolerated Home oxygen evaluation 07/23/2020; remains on high flow oxygen, continue steroids remdesivir, prone position and comfort care Patient is critically ill with very poor prognosis and prolonged hypoxemia on high flow oxygen Plan of care reviewed with the patient and his nurse 07/24/2020; patient was severely hypoxemic rapid response called oxygen settings adjusted patient is currently better, requiring high flow oxygen right from the day he was admitted, poor prognosis, discussed with patient's 07/25/2020; patient remains on high flow oxygen in mild distress, overall prognosis poor I discussed with , and family friend physician extensively yesterday Poor prognosis continue current management 07/26/2020; patient remains on high flow oxygen 40 L/100%/95% O2 sat +100% nonrebreather Patient is critically ill, poor prognosis, ID pulmonary following 07/27/2020; patient remains on high flow oxygen 40 L/100%/[address] 100% nonrebreather Very poor prognosis, patient and family aware Pulmonary recommendations noted and appreciated 07/28/2020; patient remains critically ill, remains dependent on high flow oxygen 40 L +100% nonrebreather Very poor prognosis. 07/29/2020 Remains critically ill On high flow oxygen 07/30/2020 On high flow oxygen Is critically ill 07/31/2020 On high flow oxygen Critically ill 08/01/2020 on high flow oxygen Critically ill 08/02/2020 On Vent Weaning in progress 08/03/20 On Vent Weaning in progress 08/04/20 On vent Weaning in progress 08/05/20 Did not increase PEEP yesterday. PaO2 improved on own. Will wean FiO2 down today for sats >88%. Hold on proning for now. Continue steroids. Needs better rate control. Most likely sinus tach from hypoxemia, 08/08: Patient remains on full ventilatory support, critically ill, Proninng per Associate Chemist. Down to 60% oxygen FIO2. PEEP Lasix 20mg IV x 1 today, Consider changing to full dose anticoagulation. Discussed with Associate Chemist. Check Osmolality. Monitor Plt considering Lovenox Spoke with extensively and sister. 08/10; Continue supportive care, No significant clinical change, monitor for fever, continue pronining if tolerated. Being changed to Versed due to worsening triglycerides propofol has been stopped. Will discuss with critical care physician if some additional Lasix trial will be done as well monitoring patient's renal function. I have called and left a message for the family. 08/11: Continues with persistent hypoxia and hypercapnia. Intermittent fever. No elevated leukocytosis. Will reconsult ID to assist with management of this. Continue on full dose anticoagulation while monitoring H&H. We will hold off any further Lasix due to noted elevated bicarb. We will continue to monitor 08/12: Discussed with nursing staff. 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 Patient remains critically ill with no change for the better or for worse. Discussed with nursing staff patient still moves around but nonpurposeful movements not following commands. Will reevaluate during sedation vacation. We will continue to monitor hypernatremia and adjust fluids to help with improvement. I have called and update family, answered all questions. We will continue pronging --Acute hypoxc respiratory failure on Vent Current Visit: Yes Status: Acute Plan to address problem: Weaning in progress -- Hypernatremia increase water intake --COVID-19 positive Continue contact and droplet isolation, --Elevated D-dimers; CTA chest negative for PE, mild pulmonary edema, -- Pneumonia Current Visit: Yes Status: Acute Plan to address problem: Off antibiotics --Severe protein calorie Malnutrition Client Experience Consultant consult -- Throbocytopenia -- Acute Metabolic Encephalopathy ---DVT prophylaxis Current Visit: Yes Status: Acute Plan to address problem: Patient placed on subcutaneous Lovenox. -- Full code status Current Visit: Yes Status: Acute Plan to address problem: Patient is a full code. Advance care planning Current Visit: Yes Status: Acute Plan to address problem: Disease education conducted, patient is full code, patient has poor prognosis. Prognosis discussed. +30 minutes. The high probability of a clinically significant, sudden or life threatening deterioration of the [cardiac, pulmonary, neuro] system(s) required my full and direct attention, intervention and personal management. The aggregate critical care time was [45] minutes. This time is in addition to time spent performing reported procedures but includes the following: [x] Data Review and interpretation [x] Patient assessment and monitoring of vital signs [x] Documentation [x] Medication orders and management History Interval history: Patient seen and examined, unfortunately remains critically ill. Hospitalist Physical - Physical exam Narrative exam: General appearance: Present:on full ventilatory support, sedated - EENT Eyes: Present: miosis ENT: Not following commands - Neck Neck: Present: supple - Respiratory Respiratory effort: labored still mildly increased wob Respiratory: bilateral: diminished, rhonchi - Cardiovascular Rhythm: Regular but tachycardic Heart Sounds: Present: S1 & S2 - Extremities Extremities: no ischemia Peripheral Pulses: within normal limits - Abdominal General gastrointestinal: soft, non-tender, non-distended - Integumentary Integumentary: Present: dry - Psychiatric Psychiatric: no appropriate mood/affect, no intact judgment & insight, no memory intact - Neurologic Neurologic: CNII-XII intact, no gait normal - Constitutional Vitals: Temp Pulse Resp BP Pulse Ox 99.3 F 104 H 19 130/70 93 08/12/20 03:20 08/12/20 07:32 08/12/20 06:00 08/12/20 07:32 08/12/20 07:32 General appearance: Present: no acute distress, well-nourished HEART Score - HEART Score Troponin: Troponin T 0.018 ng/mL (0.00-0.029) 07/30/20 10:33 Results - Labs CBC & Chem 7: 08/12/20 04:00 08/12/20 07:14 Labs: Laboratory Last Values WBC 7.4 K/mm3 (4.5-11.0) 08/12/20 04:00 RBC 2.98 M/mm3 (3.65-5.03) L 08/12/20 04:00 Hgb 9.4 gm/dl (11.8-15.2) L 08/12/20 04:00 Hct 28.7 % (35.5-45.6) L 08/12/20 04:00 MCV 97 fl (84-94) H 08/12/20 04:00 MCH 31 pg (28-32) 08/12/20 04:00 MCHC 33 % (32-34) 08/12/20 04:00 RDW 13.8 % (13.2-15.2) 08/12/20 04:00 Plt Count 167 K/mm3 (140-440) 08/12/20 04:00 Lymph % (Auto) 11.5 % (13.4-35.0) L 08/07/20 04:00 [place] % (Auto) 3.2 % (0.0-7.3) 08/07/20 04:00 Eos % (Auto) 2.1 % (0.0-4.3) 08/07/20 04:00 Baso % (Auto) 0.3 % (0.0-1.8) 08/07/20 04:00 Lymph # (Auto) 1.3 K/mm3 (1.2-5.4) 08/07/20 04:00 [place] # (Auto) 0.3 K/mm3 (0.0-0.8) 08/07/20 04:00 Eos # (Auto) 0.2 K/mm3 (0.0-0.4) 08/07/20 04:00 Baso # (Auto) 0.0 K/mm3 (0.0-0.1) 08/07/20 04:00 Add Manual Diff Complete 07/18/20 04:31 Total Counted 100 07/18/20 04:31 Seg Neutrophils % 82.9 % (40.0-70.0) H 08/07/20 04:00 Lymphocytes % (Manual) 5.0 % (13.4-35.0) L 07/18/20 04:31 Monocytes % (Manual) 3.0 % (0.0-7.3) 07/18/20 04:31 Nucleated RBC % Not Reportable 07/18/20 04:31 Seg Neutrophils # 9.0 K/mm3 (1.8-7.7) H 08/07/20 04:00 Seg Neutrophils # Man 8.1 K/mm3 (1.8-7.7) H 07/18/20 04:31 Band Neutrophils # 0.0 K/mm3 07/18/20 04:31 Lymphocytes # (Manual) 0.4 K/mm3 (1.2-5.4) L 07/18/20 04:31 Abs React Lymphs (Man) 0.0 K/mm3 07/18/20 04:31 Monocytes # (Manual) 0.3 K/mm3 (0.0-0.8) 07/18/20 04:31 Eosinophils # (Manual) 0.0 K/mm3 (0.0-0.4) 07/18/20 04:31 Basophils # (Manual) 0.0 K/mm3 (0.0-0.1) 07/18/20 04:31 Metamyelocytes # 0.0 K/mm3 07/18/20 04:31 Myelocytes # 0.0 K/mm3 07/18/20 04:31 Promyelocytes # 0.0 K/mm3 07/18/20 04:31 Blast Cells # 0.0 K/mm3 07/18/20 04:31 WBC Morphology Not Reportable 07/18/20 04:31 Hypersegmented Neuts Not Reportable 07/18/20 04:31 Hyposegmented Neuts Not Reportable 07/18/20 04:31 Hypogranular Neuts Not Reportable 07/18/20 04:31 Smudge Cells Not Reportable 07/18/20 04:31 Toxic Granulation Not Reportable 07/18/20 04:31 Toxic Vacuolation Not Reportable 07/18/20 04:31 Dohle Bodies Not Reportable 07/18/20 04:31 Pelger-Huet Anomaly Not Reportable 07/18/20 04:31 Cheri Rods Not Reportable 07/18/20 04:31 Platelet Estimate Consistent w auto 07/18/20 04:31 Clumped Platelets Not Reportable 07/18/20 04:31 Plt Clumps, EDTA Not Reportable 07/18/20 04:31 Large Platelets Not Reportable 07/18/20 04:31 Giant Platelets Not Reportable 07/18/20 04:31 Platelet Satelliting Not Reportable 07/18/20 04:31 Plt Morphology Comment Not Reportable 07/18/20 04:31 RBC Morphology Not Reportable 07/18/20 04:31 Dimorphic RBCs Not Reportable 07/18/20 04:31 Polychromasia Not Reportable 07/18/20 04:31 Hypochromasia Not Reportable 07/18/20 04:31 Poikilocytosis Not Reportable 07/18/20 04:31 Anisocytosis 1+ 07/18/20 04:31 Microcytosis Not Reportable 07/18/20 04:31 Macrocytosis Not Reportable 07/18/20 04:31 Spherocytes Not Reportable 07/18/20 04:31 Pappenheimer Bodies Not Reportable 07/18/20 04:31 Sickle Cells Not Reportable 07/18/20 04:31 Target Cells Not Reportable 07/18/20 04:31 Tear Drop Cells Not Reportable 07/18/20 04:31 Ovalocytes Not Reportable 07/18/20 04:31 Helmet Cells Not Reportable 07/18/20 04:31 [place] Bodies Not Reportable 07/18/20 04:31 Saunemin Rings Not Reportable 07/18/20 04:31 Howes Cells Not Reportable 07/18/20 04:31 Bite Cells Not Reportable 07/18/20 04:31 Crenated Cell Not Reportable 07/18/20 04:31 Elliptocytes Not Reportable 07/18/20 04:31 Acanthocytes (Spur) Not Reportable 07/18/20 04:31 Rouleaux Not Reportable 07/18/20 04:31 Hemoglobin C Crystals Not Reportable 07/18/20 04:31 Schistocytes Not Reportable 07/18/20 04:31 Malaria parasites Not Reportable 07/18/20 04:31 ESR > 140.0 mm/Hr (0-20) 08/10/20 13:23 Wilfredo Bodies Not Reportable 07/18/20 04:31 Hem Pathologist Commnt No 07/18/20 04:31 PT 13.7 Sec. (12.2-14.9) 07/18/20 04:31 INR 1.06 (0.87-1.13) 07/18/20 04:31 D-Dimer > 76149 ng/mlDDU (0-234) H 07/26/20 10:07 ABG pH 7.385 (7.320-7.450) 08/12/20 03:31 POC ABG pCO2 65.1 mmHg (32.0-48.0) H 08/12/20 03:31 POC ABG pO2 83.8 mmHg (83-108) 08/12/20 03:31 POC ABG HCO3 38.1 08/12/20 03:31 POC ABG Base Excess 11.2 08/12/20 03:31 ABG Hemoglobin 9.9 (12.0-17.5) L 08/12/20 03:31 ABG Oxyhemoglobin 91.7 (94-98) L 08/11/20 04:33 ABG Methemoglobin 0.3 (0.0-1.5) 08/11/20 04:33 ABG Sodium 145.6 mmol/L (136.0-145.0) H 08/12/20 03:31 ABG Potassium 4.4 mmol/L (3.40-4.50) 08/12/20 03:31 ABG Chloride 105.0 mmol/L (98-107) 08/12/20 03:31 ABG Glucose 106 mg/dL (65-95) H 08/12/20 03:31 Carboxyhemoglobin 1.3 (0.5-1.5) 08/11/20 04:33 FiO2 60 08/12/20 03:31 Sodium 149 mmol/L (137-145) H 08/12/20 07:14 Potassium 4.5 mmol/L (3.6-5.0) 08/12/20 07:14 Chloride 105.3 mmol/L (98-107) 08/12/20 07:14 Carbon Dioxide 39 mmol/L (22-30) H 08/12/20 07:14 Anion Gap 9 mmol/L 08/12/20 07:14 BUN 33 mg/dL (9-20) H 08/12/20 07:14 Creatinine 0.5 mg/dL (0.8-1.3) L 08/12/20 07:14 Estimated GFR > 60 ml/min 08/12/20 07:14 BUN/Creatinine Ratio 66 % 08/12/20 07:14 Glucose 173 mg/dL (75-100) H 08/12/20 07:14 POC Glucose 90 mg/dL (70-105) 08/12/20 04:57 Osmolality 332 Mosm/kg 08/08/20 19:14 Lactic Acid 1.30 mmol/L (0.7-2.0) 08/10/20 13:23 Calcium 8.1 mg/dL (8.4-10.2) L 08/12/20 07:14 Phosphorus 2.60 mg/dL (2.5-4.5) 08/08/20 12:40 Magnesium 2.20 mg/dL (1.7-2.3) 08/08/20 12:40 Ferritin 1079.0 ng/mL (30.0-300.0) H 07/26/20 10:07 Total Bilirubin 0.40 mg/dL (0.1-1.2) 08/07/20 04:00 Direct Bilirubin < 0.2 mg/dL (0-0.2) 07/22/20 04:31 Indirect Bilirubin 0.0 mg/dL 07/22/20 04:31 AST 21 units/L (5-40) 08/07/20 04:00 ALT 44 units/L (7-56) 08/07/20 04:00 Alkaline Phosphatase 99 units/L (35-129) 08/07/20 04:00 Lactate Dehydrogenase 708 units/L (91-180) H 07/26/20 10:07 Total Creatine Kinase 174 units/L (55-170) H 07/30/20 10:33 CK-MB (CK-2) 4.5 ng/mL (0.0-4.0) H 07/30/20 10:33 CK-MB (CK-2) Rel Index 2.5 (0-4) 07/30/20 10:33 Troponin T 0.018 ng/mL (0.00-0.029) 07/30/20 10:33 C-Reactive Protein 22.70 mg/dL (0.00-1.30) H 08/10/20 13:23 NT-Pro-B Natriuret Pep 290.3 pg/mL (0-900) 07/18/20 16:33 Total Protein 5.4 g/dL (6.3-8.2) L 08/07/20 04:00 Albumin 2.8 g/dL (3.9-5) L 08/07/20 04:00 Albumin/Globulin Ratio 1.1 % 08/07/20 04:00 Triglycerides 869 mg/dL (2-149) H 08/10/20 08:00 Procalcitonin 0.94 ng/mL (<0.15) 07/17/20 22:48 Arterial Blood Glucose 106 mg/dL (65-95) H 08/12/20 03:31 Arterial Blood Ionized Calcium 4.6 mg/dL (4.6-5.3) 08/12/20 03:31 Urine Color Yellow (Yellow) 08/02/20 11:30 Urine Turbidity Clear (Clear) 08/02/20 11:30 Urine pH 5.0 (5.0-7.0) 08/02/20 11:30 Ur Specific [place] 1.027 (1.003-1.030) 08/02/20 11:30 Urine Protein <15 mg/dl mg/dL (Negative) 08/02/20 11:30 Urine Glucose (UA) Neg mg/dL (Negative) 08/02/20 11:30 Urine Ketones Neg mg/dL (Negative) 08/02/20 11:30 Urine Blood Neg (Negative) 08/02/20 11:30 Urine Nitrite Neg (Negative) 08/02/20 11:30 Urine Bilirubin Neg (Negative) 08/02/20 11:30 Urine Urobilinogen < 2.0 mg/dL (<2.0) 08/02/20 11:30 Ur Leukocyte Esterase Neg (Negative) 08/02/20 11:30 Urine WBC (Auto) 1.0 /HPF (0.0-6.0) 08/02/20 11:30 Urine RBC (Auto) 3.0 /HPF (0.0-6.0) 08/02/20 11:30 Hyaline Casts 1 /LPF 08/02/20 11:30 Granular Casts 1 /LPF 08/02/20 11:30 Urine Mucus Few /HPF 08/02/20 11:30 Coronavirus (PCR) Positive (Negative) A 07/18/20 08:50 SARS-CoV-2 IgG Ab Reactive (NonReactive) A 07/21/20 05:24 Microbiology: Microbiology 08/10/20 13:23 Peripheral/Venous Blood Culture - Preliminary NO GROWTH AFTER 24 HOURS 08/10/20 13:23 Peripheral/Venous Blood Culture - Preliminary NO GROWTH AFTER 24 HOURS Cabrera/IV: Voiding Method Indwelling Catheter IV Catheter Type [Left Upper PICC Line arm] IV Catheter Type [Left Hand] INT / Saline Lock IV Catheter Type [Left Wrist] INT / Saline Lock IV Catheter Type [Left INT / Saline Lock Antecubital] IV Catheter Type [Right Distal INT / Saline Lock Port Hand] Active Medications - Current Medications Current Medications: Generic Name Dose Route Start Last Admin Trade Name Freq PRN Reason Stop Dose Admin Acetaminophen 650 mg 07/17/20 22:21 08/06/20 13:14 Acetaminophen 325 Mg Tab PO 650 mg Q4H PRN Administration Pain MILD(1-3)/Fever >100.5/AWAD Albuterol 2.5 mg 07/18/20 16:14 07/18/20 19:45 Albuterol 2.5 Mg/3 Ml Nebu IH 2.5 mg Q4HRT PRN Administration Shortness Of Breath Lipase/Protease/Amylase 1 each 07/31/20 12:23 Lipase 10,500/Protease 25,000/Amylase 43,750 (Units) Dr Olson FEEDTUBE PRN PRN For Clogged Feeding Tube Ascorbic Acid 1,000 mg 08/08/20 22:00 08/11/20 21:00 Ascorbic Acid 500 Mg Tab PO 1,000 mg BID SHERON Administration Cholecalciferol 5,000 unit 08/08/20 19:00 08/11/20 10:21 Cholecalciferol (Vit D3) 5,000 Unit Tab PO 5,000 unit DAILY SHERON Administration Dexamethasone 6 mg 07/31/20 11:00 08/11/20 10:22 Dexamethasone 4 Mg/Ml Vial IV 6 mg Q24HR SHERON Administration Dextrose 50 ml 08/06/20 13:14 Dextrose 50% In Water (25gm) 50 Ml Syringe IV Q30MIN PRN Hypoglycemia Protocol Enoxaparin Sodium 90 mg 08/08/20 22:00 08/11/20 21:00 Enoxaparin 100 Mg/1 Ml Inj 1 mg/kg (90 mg) 90 mg SUB-Q Administration Q12HR SHERON Protocol Famotidine 20 mg 08/01/20 10:00 08/11/20 21:00 Famotidine 20 Mg Tab PO 20 mg BID SHERON Administration Hydrophilic Ointment 1 applic 07/31/20 11:00 Lip Therapy Vaseline TP Q2H PRN Dry Lips Norepinephrine 4 mg in 250 mls @ 7.5 mls/hr 07/31/20 09:00 08/01/20 02:37 Levophed Drip 4 Mg/Ns 250 Ml IV 0 mcg/min TITR SHERON 0 mls/hr Titration Protocol 2 MCG/MIN Fentanyl Citrate 2,000 mcg in 100 mls @ 4.43 mls/hr 07/31/20 11:00 08/12/20 03:53 Fentanyl Drip Premix IV 4 mcg/kg/hr TITR SHERON 17.72 mls/hr Administration Protocol 1 MCG/KG/HR Midazolam HCl 100 mg/ Sodium 100 mls @ 2 mls/hr 08/10/20 11:00 08/12/20 02:39 Chloride IV 5 mg/hr TITR SHERON 5 mls/hr Administration Protocol 2 MG/HR Cefepime HCl 2 gm in 100 mls @ 200 mls/hr 08/12/20 10:00 Cefepime/Ns 2 Gm/100 Ml IV Q12HR [facility] Protocol Insulin Human Lispro 0 unit 08/07/20 00:00 08/12/20 06:22 Insulin Lispro 100 Unit/Ml Vial 3 Ml SUB-Q Not Given Q6HR [facility] Protocol Lorazepam 2 mg 08/08/20 11:36 08/11/20 13:45 Lorazepam 2 Mg/Ml Vial IV 2 mg Q4H PRN Administration Agitation Magnesium Hydroxide 30 ml 07/17/20 22:21 08/05/20 11:11 Magnesium Hydroxide (Mom) Oral Liqd Udc PO 30 ml Q4H PRN Administration Constipation Multi-Ingred Cream/Lotion/Oil/Oint 1 applic 07/31/20 10:55 Mineral Oil/Petrolatum, White Ophth Oint 3.5 Gm OU Q4H PRN Dry Eye(s) Ondansetron HCl 4 mg 07/17/20 22:21 07/20/20 02:21 Ondansetron 4 Mg/2 Ml Inj IV 4 mg Q8H PRN Administration Nausea And Vomiting Senna/Docusate Sodium 2 tab 08/03/20 11:00 08/11/20 21:00 Sennosides/Docusate Sodium 8.6/50 Mg Tab PO 2 tab BID SHERON Administration Simple Syrup 15 ml 07/31/20 12:23 Simple Syrup 15 Ml FEEDTUBE PRN PRN Hypoglycemia Simple Syrup 30 ml 07/31/20 12:23 Simple Syrup 15 Ml FEEDTUBE PRN PRN Hypoglycemia Sodium Bicarbonate 325 mg 07/31/20 12:23 Sodium Bicarbonate 325 Mg Tab FEEDTUBE PRN PRN For Clogged Feeding Tube Sodium Chloride 10 ml 07/17/20 22:01 07/17/20 22:13 Sodium Chloride 0.9% 10 Ml Flush Syringe IV 10 ml PRN PRN Administration LINE FLUSH Sodium Chloride 10 ml 07/18/20 10:00 08/11/20 21:00 Sodium Chloride 0.9% 10 Ml Flush Syringe IV 10 ml BID SHERON Administration Trazodone HCl 50 mg 07/30/20 22:00 08/11/20 21:00 Trazodone 50 Mg Tab PO 50 mg QHS SHERON Administration Valacyclovir HCl 2,000 mg 08/12/20 10:00 Valacyclovir 500 Mg Tab PO 08/13/20 09:59 BID SHERON Zinc Sulfate 220 mg 08/08/20 19:00 08/11/20 10:22 Zinc Sulfate 220 Mg Cap PO 220 mg QDAY SHERON Administration Nutrition/Malnutrition Assess - Dietary Evaluation Nutrition/Malnutrition Findings: Nutrition Notes Start: 07/23/20 13:19 Freq: Status: Active Protocol: Document 08/09/20 13:07 AT (Rec: 08/09/20 13:53 AT [email or web address]) Co-Sign 08/09/20 13:07 NHALL Nutrition Notes Initial or Follow up Reassessment Current Diagnosis Respiratory Failure Other Pertinent Diagnosis COVID-19 (+), pneu, prerenal azotemia Current Diet Vital AF 1.2 at 70 mL/hr Labs/Tests Na 151 BUN 32 Cr 0.6 BG 189 Pertinent Medications Vit C Vit D3 Decadron Levophed Propofol at 2.658 mL/hr (70 kcal) D5W started today Height 5 ft 11 in Weight 87.1 kg [place] Body Weight (kg) 78.18 BMI 26.7 Weight change and time frame Wt change noted (2.89% wt loss x 3 days. Weight Status Overweight Subjective/Other Information Follow-up for TF tolerance and Na labs. Per RN, pt is tolerating TF without issue. Pt remains on vent. 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 #1 Nutrition Diagnosis Inadequate oral intake Diagnosis Progress(for reassessment Continues documentation) Is patient on ventilator? Yes Is Patient Ambulatory and/or Out of Bed No REE-([place]-[facility]. Jeor-confined to bed) [facility] Additional Notes Pro needs 1.2-2g/k-174g/ day Fluid needs 1ml/kcal Nutrition Intervention Change Diet Order: Continue TF Nutrition Support: Vital AF 1.2 at 70ml/hr with 300ml water flush q4h until hypernatremia resolved; then 115ml q4h. When pronin hr proned: Vital AF 1.2 at 20 ml/hr, flush 100 ml q4h for hypernatremia, or per MD; then 50 ml q4h once resolved. 12 hr supine: Vital AF 1.2 at 120 ml/hr, flush 350 ml q4h for hypernatremia, or per MD; then 180 q4h once resolved. Kcal 2,016 Protein (gm) 126 Fluid (mL) 1,362 Goal #1 Continued TF tolerance Goal #2 Continue to meet at least 75% of estimated energy and protein needs via TF. Anticipated Discharge Needs: Unable to determine at this time Follow-Up By: 08/12/20 Additional Comments F/U for Na labs, water flush, prone status, and TF tolerance
[2020-08-12 09:10] LABS: C-Reactive Protein 19.5 mg/dL (0.00-1.30)
--- NOTE | 2020-08-12 09:35 | Progress Note ---
Assessment and Plan 60 y/o male with chest discomfort, shortness of breath and abnormal CXR, COVID Positive 08/12/20: Day 11 of intubation. Bicarb is down to 39. pH is not alkalotic. Maxed on Versed at 5 and currently Fentanyl at 4. Urine output remains stable. Will continue proning although has not been responding as well as possible. Hold on diuretic therapy. Needs more free water flushes vs D5W to help with elevated sodium. Guarded prognosis. Please discuss with family that pulmonary [place] unfortunately there has been no change, however he has not gotten worse. we will continue steroid therapy as well as proning. We will wean the oxygen as best we can when his saturations will tolerate it. 08/11/20: Day 10 of intubation. Most likely elevated bicarb is from Steroids (has been on them 25 days). No need to treat at the moment. If his serum bicarb gets about 45-46 will treat with diamox therapy. This will remove bicarb and help with volume. Hold on any further lasix therapy for now also. Will repeat Trigylcerides over the weekend. No diprovan at this time. If more sedation is needed, can look at pentobarb or phenobarbital coma to assist with sedation. Daily labs to monitor renal function. Prognosis remains very guard ed. Wean FiO2 for sats>88% 08/10/20: Day 9 of intubation. Unfortunately we must stop diprovan. Will place patient on Versed drip along with Fentanyl drip. Needs daily chemistries to assess renal function so that medication does not build up in patient system. All free water drips as well as flushes have been stopped. Will repeat Chemistry again today at 1400. Prone again today as well. Wean FiO2 for sats >88%. If able to speak with family, would I would tell them is that patient remains critically ill and we will continue to prone on a daily basis to help with oxygenation. I would also tell them we changed the sedation to prevent complications from higher levels. His renal function so far has remained stable which is a good thing but we will monitor it daily. Overall prognosis is still guarded to poor. 08/09/20: Day 8 of intubation. Continue proning as patient is tolerating this and making slow improvement. Continue PEEP at current settings. [facility] will update family and I will discuss with IMS my medical opinion to be conveyed to them. 08/08/20: Prone again today. Same weaning parameters as yesterday. Will order labs for am. Calling now and see if she needs the other the family on the phone to update her. Prognosis still remains very guarded to poor. Asked RT to be as aggressive as possible with weaning FiO2. The unfortunately is not understanding how sick the patient is. I am trying my best to explain to her on a daily basis about this. But she does not accept when I tell her that he has remained stable. 08/07/20: Will prone again today. Wean FiO2 for sats >88% and PaO2 >55. Continue to monitor daily urine function and output. I again today explained the severity of the Mr. Suarez's clinical state as best I could using [employer] [place]. The other family member on the phone says that the communication has not bee consistent. The patient received Remdesivir while he was on the floor. He did get all 5 doses. I explained to the family that there is no indication for longer therapy or ID would have recommended. I also explained to them that I have extended the steroids to see if this would help beyond the current clinical recommendations. I also explained again that there is no cure for COVID 19 and that all measures are experimental as well as supportive. I also explained why he needs sedation while intubated and especially when proning. I am still not sure that they fully understand the extent of his illness but will continue to speak with them. Guarded prognosis. 08/06/20: Increase PEEP today to 16. Repeat gas tomorrow morning. Wean FiO2 today for sats >88%. Spoke with RT and PaO2 of 55 and greater are ok. will prone tonight for 12 hours at least. Remains in sinus tach. No labs drawn this am will order for stat this morning including BMP and Mag and Phos, CBC. Spoke with this am to update her. She is upset and asks to do everything for him that we can which I told her we would. I was also very honest about the severity of the disease which made her even more sad. 08/05/20: Did not increase PEEP yesterday. PaO2 improved on own. Will wean FiO2 down today for sats >88%. Hold on proning for now. Continue steroids. Needs better rate control. Most likely sinus tach from hypoxemia, but needs 12 lead if not done yet. Needs labs checked to assess electrolytes. Prognosis remains guarded to poor. Will attempt to reach today, if not today tomorrow. 08/04/20: Will increase PEEP to 16 today. If no improvement in the next 24 hours then will start proning patient tomorrow night. Continue steroids. Overall prognosis remains very guarded. 08/03/20: Chemistry not ordered, ordered today. Follow up blood cultures. Increased PEEP to 14 and RT will attempt to wean FiO2 back down to 50's. Will continue steroids at current dosing for now. He has already completed to o riginal 10 days. Given some improvement, would like to continue. Overall prognosis remains very guarded. 08/02/20: Check blood and urine cultures along with UA. Will check repeat CXR. Repeat Chemistry tomorrow. Hold on abx therapy for right now. Prognosis remains guarded. Continue steroids. Wean FiO2 for sats >88% 08/01/20: Overall prognosis here is very very guarded to poor. Will consider proning patient later today if not able to wean FiO2 any further this afternoon. Per CM, wants to come see patient which is very reasonable. Will continue steroids despite completing 10 days of this. 07/29/20: Supportive measures. Proning and wean as tolerated. 07/28/20: No new recommendations as of right now. When beds become available will move patient down stairs for closer monitoring. 07/27/20: Difficult situation. Patient appears to be not responding to any therapy. Steroids finished yesterday. Given the degree of inflammation will restart steroids for at least another 72-96 hours. In no improvement will stop. Not much else to do medical therapy [place]. Continue to keep patient net negative. Still remains high risk for intubation and if intubated given his current response to steroids, very high mortality. 07/26/20: No new recs for today. Patient really needs to try to prone as much as possible during the day and sleep prone at night. He remains a high risk for cardiac arrest and intubation. 07/25/20: very high risk for cardiac arrest from hypoxemia, but no available beds in ICU. Given COVID status, ideally would not like to use bipap but may have to in the event of continued desats. While proning does better and does not need the mask along with HFNC. Encourage to prone as long as possible. 1. Continue steroids for 10 days. 2. Continue Remdesivir. Not a candidate for Convalescent Plasma 3. Please ask patient prone as tolerated during the day and sleep prone at night. Currently doing and tolerating 4. Agree with daily lasix but will need labs to monitor renal function and electrolytes. Needs labs for today. 5. Guarded prognosis to poor now with increasing oxygen requirement. May require intubation and high risk for cardiac arrest. CCT 31 Subjective Date of service: 08/12/20 Principal diagnosis: Acute respiratory failure with hypoxia, Covid pneumonia Interval history: No acute events. Tolerated proning. Still on 60% and 16 of PEEP. Objective Vital Signs - 12hr 08/11/20 08/11/20 08/11/20 21:30 21:45 22:00 Temperature Pulse Rate 100 H 98 H 100 H Pulse Rate [ From Monitor] Respiratory 31 H 31 H 31 H Rate Blood Pressure 139/74 139/74 141/77 O2 Sat by Pulse 94 97 94 Oximetry 08/11/20 08/11/20 08/11/20 22:15 22:30 22:45 Temperature Pulse Rate 100 H 100 H 101 H Pulse Rate [ From Monitor] Respiratory 31 H 31 H 25 H Rate Blood Pressure 141/77 143/76 143/76 O2 Sat by Pulse 96 94 96 Oximetry 08/11/20 08/11/20 08/11/20 23:00 23:15 23:30 Temperature Pulse Rate 101 H 98 H 98 H Pulse Rate [ From Monitor] Respiratory 30 H 30 H 32 H Rate Blood Pressure 136/76 136/76 152/81 O2 Sat by Pulse 94 96 94 Oximetry 08/11/20 08/11/20 08/12/20 23:43 23:45 00:00 Temperature 99.3 F Pulse Rate 101 H 100 H Pulse Rate [ 100 H From Monitor] Respiratory 30 H 31 H Rate Blood Pressure 152/81 147/77 O2 Sat by Pulse 96 96 Oximetry 08/12/20 08/12/20 08/12/20 00:03 00:15 00:30 Temperature Pulse Rate 101 H 103 H 102 H Pulse Rate [ From Monitor] Respiratory 30 H 30 H 30 H Rate Blood Pressure 147/77 147/77 147/77 O2 Sat by Pulse 96 96 96 Oximetry 08/12/20 08/12/20 08/12/20 00:46 01:00 01:16 Temperature Pulse Rate 103 H 103 H 105 H Pulse Rate [ From Monitor] Respiratory 30 H 31 H 31 H Rate Blood Pressure 142/81 137/77 137/77 O2 Sat by Pulse 96 94 97 Oximetry 08/12/20 08/12/20 08/12/20 01:30 01:46 02:00 Temperature Pulse Rate 99 H 104 H 98 H Pulse Rate [ From Monitor] Respiratory 31 H 30 H 30 H Rate Blood Pressure 125/81 125/81 147/79 O2 Sat by Pulse 94 97 98 Oximetry 08/12/20 08/12/20 08/12/20 02:16 02:30 02:46 Temperature Pulse Rate 102 H 96 H 101 H Pulse Rate [ From Monitor] Respiratory 30 H 30 H 26 H Rate Blood Pressure 147/79 123/76 123/76 O2 Sat by Pulse 97 98 96 Oximetry 08/12/20 08/12/20 08/12/20 03:00 03:16 03:20 Temperature 99.3 F Pulse Rate 100 H 99 H Pulse Rate [ From Monitor] Respiratory 18 15 Rate Blood Pressure 120/69 120/69 O2 Sat by Pulse 96 96 Oximetry 08/12/20 08/12/20 08/12/20 03:30 03:46 04:00 Temperature Pulse Rate 101 H 100 H 101 H Pulse Rate [ 102 H From Monitor] Respiratory 15 15 20 Rate Blood Pressure 127/67 127/67 118/69 O2 Sat by Pulse 95 95 95 Oximetry 08/12/20 08/12/20 08/12/20 04:16 04:30 04:46 Temperature Pulse Rate 100 H 99 H 102 H Pulse Rate [ From Monitor] Respiratory 14 16 16 Rate Blood Pressure 118/69 121/75 121/75 O2 Sat by Pulse 95 94 95 Oximetry 08/12/20 08/12/20 08/12/20 05:00 05:16 05:30 Temperature Pulse Rate 101 H 101 H 101 H Pulse Rate [ From Monitor] Respiratory 15 16 16 Rate Blood Pressure 131/66 131/66 130/70 O2 Sat by Pulse 94 94 94 Oximetry 08/12/20 08/12/20 08/12/20 05:46 06:00 07:32 Temperature Pulse Rate 102 H 104 H 104 H Pulse Rate [ From Monitor] Respiratory 16 19 Rate Blood Pressure 130/70 130/70 130/70 O2 Sat by Pulse 94 93 93 Oximetry 08/12/20 08:00 Temperature 99.3 F Pulse Rate Pulse Rate [ From Monitor] Respiratory Rate Blood Pressure O2 Sat by Pulse Oximetry Constitutional: other (orally intubated on vent) Eyes: non-icteric ENT: oropharynx moist Neck: supple Ascultation: Bilateral: diminished breath sounds, rhonchi Cardiovascular: regular rate and rhythm, other (tachycardia) Gastrointestinal: normoactive bowel sounds, soft, non-tender, non-distended Integumentary: normal Extremities: no cyanosis Neurologic: normal mental status, non-focal exam CBC and BMP: 08/12/20 04:00 08/12/20 07:14 ABG, PT/INR, D-dimer: ABG ABG pH 7.385 (7.320-7.450) 08/12/20 03:31 POC ABG pCO2 65.1 mmHg (32.0-48.0) H 08/12/20 03:31 POC ABG pO2 83.8 mmHg (83-108) 08/12/20 03:31 POC ABG HCO3 38.1 08/12/20 03:31 PT/INR, D-dimer PT 13.7 Sec. (12.2-14.9) 07/18/20 04:31 INR 1.06 (0.87-1.13) 07/18/20 04:31 D-Dimer > 73130 ng/mlDDU (0-234) H 07/26/20 10:07 Abnormal lab findings: Abnormal Labs 07/17/20 07/17/20 07/17/20 17:30 17:30 22:48 WBC RBC Hgb Hct MCV MCH MCHC 35 H RDW Plt Count Lymph % (Auto) 10.5 L Lymph # (Auto) 0.7 L Seg Neutrophils % 85.3 H Lymphocytes % (Manual) Seg Neutrophils # Seg Neutrophils # Man Lymphocytes # (Manual) D-Dimer 314.21 H ABG pH POC ABG pCO2 POC ABG pO2 ABG Hemoglobin ABG Oxyhemoglobin ABG Sodium ABG Potassium ABG Chloride ABG Glucose Sodium Potassium Chloride Carbon Dioxide BUN 1 L Creatinine Glucose 154 H POC Glucose Calcium Magnesium Ferritin Alkaline Phosphatase Lactate Dehydrogenase Total Creatine Kinase CK-MB (CK-2) C-Reactive Protein Total Protein Albumin Triglycerides Arterial Blood Glucose Arterial Blood Ionized Calcium Coronavirus (PCR) SARS-CoV-2 IgG Ab 12/07/17/20 07/18/20 22:48 22:48 04:31 WBC RBC Hgb Hct MCV MCH 33 H MCHC 35 H RDW 13.1 L Plt Count Lymph % (Auto) Lymph # (Auto) Seg Neutrophils % Lymphocytes % (Manual) 5.0 L Seg Neutrophils # Seg Neutrophils # Man 8.1 H Lymphocytes # (Manual) 0.4 L D-Dimer ABG pH POC ABG pCO2 POC ABG pO2 ABG Hemoglobin ABG Oxyhemoglobin ABG Sodium ABG Potassium ABG Chloride ABG Glucose Sodium Potassium Chloride Carbon Dioxide BUN Creatinine Glucose 124 H POC Glucose Calcium Magnesium Ferritin 889.3 H Alkaline Phosphatase Lactate Dehydrogenase 832 H Total Creatine Kinase CK-MB (CK-2) C-Reactive Protein 17.70 H Total Protein Albumin Triglycerides Arterial Blood Glucose Arterial Blood Ionized Calcium Coronavirus (PCR) SARS-CoV-2 IgG Ab 07/18/20 07/18/20 07/18/20 04:31 08:50 18:48 WBC RBC Hgb Hct MCV MCH MCHC RDW Plt Count Lymph % (Auto) Lymph # (Auto) Seg Neutrophils % Lymphocytes % (Manual) Seg Neutrophils # Seg Neutrophils # Man Lymphocytes # (Manual) D-Dimer 275.27 H ABG pH POC ABG pCO2 POC ABG pO2 ABG Hemoglobin ABG Oxyhemoglobin ABG Sodium ABG Potassium ABG Chloride ABG Glucose Sodium Potassium Chloride Carbon Dioxide 31 H D BUN 23 H Creatinine Glucose 143 H POC Glucose Calcium Magnesium Ferritin Alkaline Phosphatase Lactate Dehydrogenase Total Creatine Kinase CK-MB (CK-2) C-Reactive Protein Total Protein Albumin Triglycerides Arterial Blood Glucose Arterial Blood Ionized Calcium Coronavirus (PCR) Positive A SARS-CoV-2 IgG Ab 07/18/20 07/18/20 07/20/20 18:48 18:48 08:56 WBC RBC Hgb Hct MCV MCH MCHC RDW Plt Count Lymph % (Auto) Lymph # (Auto) Seg Neutrophils % Lymphocytes % (Manual) Seg Neutrophils # Seg Neutrophils # Man Lymphocytes # (Manual) D-Dimer ABG pH POC ABG pCO2 POC ABG pO2 ABG Hemoglobin ABG Oxyhemoglobin ABG Sodium ABG Potassium ABG Chloride ABG Glucose Sodium Potassium Chloride Carbon Dioxide BUN 22 H Creatinine Glucose 219 H POC Glucose Calcium Magnesium Ferritin 1164.0 H Alkaline Phosphatase Lactate Dehydrogenase 560 H 739 H Total Creatine Kinase CK-MB (CK-2) C-Reactive Protein 18.00 H 17.50 H Total Protein Albumin 3.0 L Triglycerides Arterial Blood Glucose Arterial Blood Ionized Calcium Coronavirus (PCR) SARS-CoV-2 IgG Ab 07/20/20 07/20/20 07/21/20 08:56 08:56 05:24 WBC RBC Hgb Hct MCV MCH MCHC RDW Plt Count Lymph % (Auto) Lymph # (Auto) Seg Neutrophils % Lymphocytes % (Manual) Seg Neutrophils # Seg Neutrophils # Man Lymphocytes # (Manual) D-Dimer 9523.70 H ABG pH POC ABG pCO2 POC ABG pO2 ABG Hemoglobin ABG Oxyhemoglobin ABG Sodium ABG Potassium ABG Chloride ABG Glucose Sodium Potassium Chloride Carbon Dioxide BUN Creatinine Glucose POC Glucose Calcium Magnesium Ferritin 1581.0 H Alkaline Phosphatase Lactate Dehydrogenase Total Creatine Kinase CK-MB (CK-2) C-Reactive Protein Total Protein Albumin Triglycerides Arterial Blood Glucose Arterial Blood Ionized Calcium Coronavirus (PCR) SARS-CoV-2 IgG Ab Reactive A 07/22/20 07/24/20 07/26/20 04:31 13:26 10:07 WBC RBC Hgb Hct MCV MCH MCHC RDW Plt Count Lymph % (Auto) Lymph # (Auto) Seg Neutrophils % Lymphocytes % (Manual) Seg Neutrophils # Seg Neutrophils # Man Lymphocytes # (Manual) D-Dimer > 30399 H ABG pH POC ABG pCO2 POC ABG pO2 ABG Hemoglobin ABG Oxyhemoglobin ABG Sodium ABG Potassium ABG Chloride ABG Glucose Sodium 146 H Potassium Chloride Carbon Dioxide 32 H BUN 28 H 26 H Creatinine Glucose 144 H 116 H POC Glucose Calcium 8.3 L Magnesium Ferritin Alkaline Phosphatase Lactate Dehydrogenase Total Creatine Kinase CK-MB (CK-2) C-Reactive Protein Total Protein Albumin 3.3 L Triglycerides Arterial Blood Glucose Arterial Blood Ionized Calcium Coronavirus (PCR) SARS-CoV-2 IgG Ab 07/26/20 07/26/20 07/27/20 10:07 10:07 19:45 WBC RBC Hgb Hct MCV MCH MCHC RDW Plt Count Lymph % (Auto) Lymph # (Auto) Seg Neutrophils % Lymphocytes % (Manual) Seg Neutrophils # Seg Neutrophils # Man Lymphocytes # (Manual) D-Dimer ABG pH POC ABG pCO2 POC ABG pO2 ABG Hemoglobin ABG Oxyhemoglobin ABG Sodium ABG Potassium ABG Chloride ABG Glucose Sodium Potassium Chloride 97.4 L Carbon Dioxide 33 H BUN 27 H Creatinine Glucose 175 H POC Glucose Calcium Magnesium Ferritin 1079.0 H Alkaline Phosphatase Lactate Dehydrogenase 708 H Total Creatine Kinase CK-MB (CK-2) C-Reactive Protein 6.10 H Total Protein Albumin Triglycerides Arterial Blood Glucose Arterial Blood Ionized Calcium Coronavirus (PCR) SARS-CoV-2 IgG Ab 07/29/20 07/30/20 07/30/20 02:09 10:33 11:54 WBC RBC Hgb Hct MCV MCH MCHC RDW Plt Count Lymph % (Auto) Lymph # (Auto) Seg Neutrophils % Lymphocytes % (Manual) Seg Neutrophils # Seg Neutrophils # Man Lymphocytes # (Manual) D-Dimer ABG pH POC ABG pCO2 POC ABG pO2 ABG Hemoglobin ABG Oxyhemoglobin ABG Sodium ABG Potassium ABG Chloride ABG Glucose Sodium Potassium Chloride Carbon Dioxide BUN Creatinine Glucose POC Glucose 183 H Calcium Magnesium 3.00 H Ferritin Alkaline Phosphatase Lactate Dehydrogenase Total Creatine Kinase 174 H CK-MB (CK-2) 4.5 H C-Reactive Protein Total Protein Albumin Triglycerides Arterial Blood Glucose Arterial Blood Ionized Calcium Coronavirus (PCR) SARS-CoV-2 IgG Ab 07/30/20 07/30/20 07/31/20 17:30 23:08 11:04 WBC RBC Hgb Hct MCV MCH MCHC RDW Plt Count Lymph % (Auto) Lymph # (Auto) Seg Neutrophils % Lymphocytes % (Manual) Seg Neutrophils # Seg Neutrophils # Man Lymphocytes # (Manual) D-Dimer ABG pH POC ABG pCO2 POC ABG pO2 ABG Hemoglobin ABG Oxyhemoglobin ABG Sodium ABG Potassium ABG Chloride ABG Glucose Sodium 151 H D Potassium Chloride 109.2 H Carbon Dioxide 32 H BUN 48 H Creatinine Glucose 165 H POC Glucose 199 H 194 H Calcium Magnesium Ferritin Alkaline Phosphatase 168 H Lactate Dehydrogenase Total Creatine Kinase CK-MB (CK-2) C-Reactive Protein Total Protein Albumin 3.1 L Triglycerides Arterial Blood Glucose Arterial Blood Ionized Calcium Coronavirus (PCR) SARS-CoV-2 IgG Ab 07/31/20 07/31/20 07/31/20 11:18 11:23 17:47 WBC RBC Hgb Hct MCV MCH MCHC RDW Plt Count Lymph % (Auto) Lymph # (Auto) Seg Neutrophils % Lymphocytes % (Manual) Seg Neutrophils # Seg Neutrophils # Man Lymphocytes # (Manual) D-Dimer ABG pH POC ABG pCO2 56.6 H POC ABG pO2 73.1 L ABG Hemoglobin ABG Oxyhemoglobin 92.1 L ABG Sodium ABG Potassium ABG Chloride 108.0 H ABG Glucose 169 H Sodium Potassium Chloride Carbon Dioxide BUN Creatinine Glucose POC Glucose 156 H 169 H Calcium Magnesium Ferritin Alkaline Phosphatase Lactate Dehydrogenase Total Creatine Kinase CK-MB (CK-2) C-Reactive Protein Total Protein Albumin Triglycerides Arterial Blood Glucose 169 H Arterial Blood Ionized Calcium Coronavirus (PCR) SARS-CoV-2 IgG Ab 07/31/20 07/31/20 07/31/20 20:58 23:18 23:55 WBC 19.8 H RBC Hgb Hct MCV 95 H MCH MCHC RDW 13.0 L Plt Count Lymph % (Auto) Lymph # (Auto) Seg Neutrophils % Lymphocytes % (Manual) Seg Neutrophils # Seg Neutrophils # Man Lymphocytes # (Manual) D-Dimer ABG pH POC ABG pCO2 POC ABG pO2 ABG Hemoglobin ABG Oxyhemoglobin ABG Sodium ABG Potassium ABG Chloride ABG Glucose Sodium Potassium Chloride Carbon Dioxide BUN Creatinine Glucose POC Glucose 293 H 211 H Calcium Magnesium Ferritin Alkaline Phosphatase Lactate Dehydrogenase Total Creatine Kinase CK-MB (CK-2) C-Reactive Protein Total Protein Albumin Triglycerides Arterial Blood Glucose Arterial Blood Ionized Calcium Coronavirus (PCR) SARS-CoV-2 IgG Ab 08/01/20 08/01/20 08/01/20 03:47 08:30 12:27 WBC RBC Hgb Hct MCV MCH MCHC RDW Plt Count Lymph % (Auto) Lymph # (Auto) Seg Neutrophils % Lymphocytes % (Manual) Seg Neutrophils # Seg Neutrophils # Man Lymphocytes # (Manual) D-Dimer ABG pH POC ABG pCO2 49.8 H POC ABG pO2 123.4 H ABG Hemoglobin ABG Oxyhemoglobin ABG Sodium ABG Potassium 4.6 H ABG Chloride 111.0 H ABG Glucose 130 H Sodium 154 H Potassium Chloride 115.1 H Carbon Dioxide 32 H BUN 49 H Creatinine Glucose 492 H POC Glucose 161 H Calcium 7.2 L D Magnesium Ferritin Alkaline Phosphatase Lactate Dehydrogenase Total Creatine Kinase CK-MB (CK-2) C-Reactive Protein Total Protein Albumin Triglycerides Arterial Blood Glucose 130 H Arterial Blood Ionized Calcium 4.5 L Coronavirus (PCR) SARS-CoV-2 IgG Ab 08/01/20 08/01/20 08/02/20 16:55 23:06 05:00 WBC RBC Hgb Hct MCV MCH MCHC RDW Plt Count Lymph % (Auto) Lymph # (Auto) Seg Neutrophils % Lymphocytes % (Manual) Seg Neutrophils # Seg Neutrophils # Man Lymphocytes # (Manual) D-Dimer ABG pH POC ABG pCO2 52.5 H POC ABG pO2 69.8 L ABG Hemoglobin ABG Oxyhemoglobin ABG Sodium 147.2 H ABG Potassium ABG Chloride 110.0 H ABG Glucose 177 H Sodium Potassium Chloride Carbon Dioxide BUN Creatinine Glucose POC Glucose 195 H 162 H Calcium Magnesium Ferritin Alkaline Phosphatase Lactate Dehydrogenase Total Creatine Kinase CK-MB (CK-2) C-Reactive Protein Total Protein Albumin Triglycerides Arterial Blood Glucose 177 H Arterial Blood Ionized Calcium Coronavirus (PCR) SARS-CoV-2 IgG Ab 08/02/20 08/02/20 08/02/20 05:01 12:05 17:13 WBC RBC Hgb Hct MCV MCH MCHC RDW Plt Count Lymph % (Auto) Lymph # (Auto) Seg Neutrophils % Lymphocytes % (Manual) Seg Neutrophils # Seg Neutrophils # Man Lymphocytes # (Manual) D-Dimer ABG pH POC ABG pCO2 POC ABG pO2 ABG Hemoglobin ABG Oxyhemoglobin ABG Sodium ABG Potassium ABG Chloride ABG Glucose Sodium Potassium Chloride Carbon Dioxide BUN Creatinine Glucose POC Glucose 146 H 166 H 209 H Calcium Magnesium Ferritin Alkaline Phosphatase Lactate Dehydrogenase Total Creatine Kinase CK-MB (CK-2) C-Reactive Protein Total Protein Albumin Triglycerides Arterial Blood Glucose Arterial Blood Ionized Calcium Coronavirus (PCR) SARS-CoV-2 IgG Ab 08/02/20 08/03/20 08/03/20 23:26 04:06 04:34 WBC RBC Hgb Hct MCV MCH MCHC RDW Plt Count Lymph % (Auto) Lymph # (Auto) Seg Neutrophils % Lymphocytes % (Manual) Seg Neutrophils # Seg Neutrophils # Man Lymphocytes # (Manual) D-Dimer ABG pH POC ABG pCO2 55.6 H POC ABG pO2 66.1 L ABG Hemoglobin 11.9 L ABG Oxyhemoglobin 91.1 L ABG Sodium 145.7 H ABG Potassium 4.8 H ABG Chloride 111.0 H ABG Glucose 195 H Sodium Potassium Chloride Carbon Dioxide BUN Creatinine Glucose POC Glucose 157 H Calcium Magnesium Ferritin Alkaline Phosphatase Lactate Dehydrogenase Total Creatine Kinase CK-MB (CK-2) C-Reactive Protein Total Protein Albumin Triglycerides 207 H Arterial Blood Glucose 195 H Arterial Blood Ionized Calcium Coronavirus (PCR) SARS-CoV-2 IgG Ab 08/03/20 08/03/20 08/03/20 05:00 11:55 17:15 WBC RBC Hgb Hct MCV MCH MCHC RDW Plt Count Lymph % (Auto) Lymph # (Auto) Seg Neutrophils % Lymphocytes % (Manual) Seg Neutrophils # Seg Neutrophils # Man Lymphocytes # (Manual) D-Dimer ABG pH POC ABG pCO2 POC ABG pO2 ABG Hemoglobin ABG Oxyhemoglobin ABG Sodium ABG Potassium ABG Chloride ABG Glucose Sodium Potassium Chloride Carbon Dioxide BUN Creatinine Glucose POC Glucose 179 H 173 H 217 H Calcium Magnesium Ferritin Alkaline Phosphatase Lactate Dehydrogenase Total Creatine Kinase CK-MB (CK-2) C-Reactive Protein Total Protein Albumin Triglycerides Arterial Blood Glucose Arterial Blood Ionized Calcium Coronavirus (PCR) SARS-CoV-2 IgG Ab 08/03/20 08/04/20 08/04/20 23:01 03:59 05:30 WBC RBC Hgb Hct MCV MCH MCHC RDW Plt Count Lymph % (Auto) Lymph # (Auto) Seg Neutrophils % Lymphocytes % (Manual) Seg Neutrophils # Seg Neutrophils # Man Lymphocytes # (Manual) D-Dimer ABG pH POC ABG pCO2 54.6 H POC ABG pO2 66.2 L ABG Hemoglobin 10.8 L ABG Oxyhemoglobin 91.5 L ABG Sodium ABG Potassium ABG Chloride 110.0 H ABG Glucose 201 H Sodium Potassium Chloride Carbon Dioxide BUN Creatinine Glucose POC Glucose 222 H 137 H Calcium Magnesium Ferritin Alkaline Phosphatase Lactate Dehydrogenase Total Creatine Kinase CK-MB (CK-2) C-Reactive Protein Total Protein Albumin Triglycerides Arterial Blood Glucose 201 H Arterial Blood Ionized Calcium Coronavirus (PCR) SARS-CoV-2 IgG Ab 08/04/20 08/04/20 08/04/20 06:57 11:50 17:29 WBC RBC Hgb Hct MCV MCH MCHC RDW Plt Count Lymph % (Auto) Lymph # (Auto) Seg Neutrophils % Lymphocytes % (Manual) Seg Neutrophils # Seg Neutrophils # Man Lymphocytes # (Manual) D-Dimer ABG pH POC ABG pCO2 POC ABG pO2 ABG Hemoglobin ABG Oxyhemoglobin ABG Sodium ABG Potassium ABG Chloride ABG Glucose Sodium 151 H Potassium Chloride 111.3 H Carbon Dioxide 36 H BUN 32 H Creatinine Glucose 160 H POC Glucose 158 H 180 H Calcium 8.2 L Magnesium 2.60 H Ferritin Alkaline Phosphatase Lactate Dehydrogenase Total Creatine Kinase CK-MB (CK-2) C-Reactive Protein Total Protein Albumin Triglycerides Arterial Blood Glucose Arterial Blood Ionized Calcium Coronavirus (PCR) SARS-CoV-2 IgG Ab 08/04/20 08/05/20 08/05/20 23:01 04:49 05:11 WBC RBC Hgb Hct MCV MCH MCHC RDW Plt Count Lymph % (Auto) Lymph # (Auto) Seg Neutrophils % Lymphocytes % (Manual) Seg Neutrophils # Seg Neutrophils # Man Lymphocytes # (Manual) D-Dimer ABG pH POC ABG pCO2 56.7 H POC ABG pO2 80.6 L ABG Hemoglobin 10.9 L ABG Oxyhemoglobin ABG Sodium 145.9 H ABG Potassium ABG Chloride 109.0 H ABG Glucose 160 H Sodium Potassium Chloride Carbon Dioxide BUN Creatinine Glucose POC Glucose 160 H 134 H Calcium Magnesium Ferritin Alkaline Phosphatase Lactate Dehydrogenase Total Creatine Kinase CK-MB (CK-2) C-Reactive Protein Total Protein Albumin Triglycerides Arterial Blood Glucose 160 H Arterial Blood Ionized Calcium Coronavirus (PCR) SARS-CoV-2 IgG Ab 08/05/20 08/05/20 08/05/20 11:40 16:54 23:29 WBC RBC Hgb Hct MCV MCH MCHC RDW Plt Count Lymph % (Auto) Lymph # (Auto) Seg Neutrophils % Lymphocytes % (Manual) Seg Neutrophils # Seg Neutrophils # Man Lymphocytes # (Manual) D-Dimer ABG pH POC ABG pCO2 POC ABG pO2 ABG Hemoglobin ABG Oxyhemoglobin ABG Sodium ABG Potassium ABG Chloride ABG Glucose Sodium Potassium Chloride Carbon Dioxide BUN Creatinine Glucose POC Glucose 137 H 243 H 154 H Calcium Magnesium Ferritin Alkaline Phosphatase Lactate Dehydrogenase Total Creatine Kinase CK-MB (CK-2) C-Reactive Protein Total Protein Albumin Triglycerides Arterial Blood Glucose Arterial Blood Ionized Calcium Coronavirus (PCR) SARS-CoV-2 IgG Ab 08/06/20 08/06/20 08/06/20 05:24 06:00 08:59 WBC 14.1 H RBC Hgb 11.5 L Hct MCV 98 H MCH MCHC RDW Plt Count 107 L Lymph % (Auto) Lymph # (Auto) Seg Neutrophils % Lymphocytes % (Manual) Seg Neutrophils # Seg Neutrophils # Man Lymphocytes # (Manual) D-Dimer ABG pH POC ABG pCO2 58.9 H POC ABG pO2 53.0 L ABG Hemoglobin ABG Oxyhemoglobin 85.7 L ABG Sodium 148.4 H ABG Potassium 4.7 H ABG Chloride 109.0 H ABG Glucose 125 H Sodium Potassium Chloride Carbon Dioxide BUN Creatinine Glucose POC Glucose 122 H Calcium Magnesium Ferritin Alkaline Phosphatase Lactate Dehydrogenase Total Creatine Kinase CK-MB (CK-2) C-Reactive Protein Total Protein Albumin Triglycerides Arterial Blood Glucose 125 H Arterial Blood Ionized Calcium Coronavirus (PCR) SARS-CoV-2 IgG Ab 08/06/20 08/06/20 08/06/20 08:59 12:34 17:43 WBC RBC Hgb Hct MCV MCH MCHC RDW Plt Count Lymph % (Auto) Lymph # (Auto) Seg Neutrophils % Lymphocytes % (Manual) Seg Neutrophils # Seg Neutrophils # Man Lymphocytes # (Manual) D-Dimer ABG pH POC ABG pCO2 POC ABG pO2 ABG Hemoglobin ABG Oxyhemoglobin ABG Sodium ABG Potassium ABG Chloride ABG Glucose Sodium 151 H Potassium Chloride 110.7 H Carbon Dioxide 36 H BUN 29 H Creatinine 0.7 L Glucose 194 H POC Glucose 193 H 204 H Calcium Magnesium Ferritin Alkaline Phosphatase Lactate Dehydrogenase Total Creatine Kinase CK-MB (CK-2) C-Reactive Protein Total Protein Albumin Triglycerides Arterial Blood Glucose Arterial Blood Ionized Calcium Coronavirus (PCR) SARS-CoV-2 IgG Ab 08/06/20 08/07/20 08/07/20 23:25 04:00 04:00 WBC RBC 3.59 L Hgb 11.3 L Hct 35.0 L MCV 97 H MCH MCHC RDW Plt Count 103 L Lymph % (Auto) 11.5 L Lymph # (Auto) Seg Neutrophils % 82.9 H Lymphocytes % (Manual) Seg Neutrophils # 9.0 H Seg Neutrophils # Man Lymphocytes # (Manual) D-Dimer ABG pH POC ABG pCO2 POC ABG pO2 ABG Hemoglobin ABG Oxyhemoglobin ABG Sodium ABG Potassium ABG Chloride ABG Glucose Sodium 151 H Potassium Chloride 109.6 H Carbon Dioxide 34 H BUN 29 H Creatinine 0.5 L Glucose 134 H POC Glucose 150 H Calcium Magnesium Ferritin Alkaline Phosphatase Lactate Dehydrogenase Total Creatine Kinase CK-MB (CK-2) C-Reactive Protein Total Protein 5.4 L Albumin 2.8 L Triglycerides Arterial Blood Glucose Arterial Blood Ionized Calcium Coronavirus (PCR) SARS-CoV-2 IgG Ab 08/07/20 08/07/20 08/07/20 04:00 04:55 05:16 WBC RBC Hgb Hct MCV MCH MCHC RDW Plt Count Lymph % (Auto) Lymph # (Auto) Seg Neutrophils % Lymphocytes % (Manual) Seg Neutrophils # Seg Neutrophils # Man Lymphocytes # (Manual) D-Dimer ABG pH POC ABG pCO2 62.8 H POC ABG pO2 75.0 L ABG Hemoglobin 11.9 L ABG Oxyhemoglobin 93.2 L ABG Sodium 148.2 H ABG Potassium ABG Chloride 108.0 H ABG Glucose 150 H Sodium Potassium Chloride Carbon Dioxide BUN Creatinine Glucose POC Glucose 116 H Calcium Magnesium Ferritin Alkaline Phosphatase Lactate Dehydrogenase Total Creatine Kinase CK-MB (CK-2) C-Reactive Protein Total Protein Albumin Triglycerides 250 H Arterial Blood Glucose 150 H Arterial Blood Ionized Calcium Coronavirus (PCR) SARS-CoV-2 IgG Ab 08/07/20 08/07/20 08/07/20 12:36 17:46 23:09 WBC RBC Hgb Hct MCV MCH MCHC RDW Plt Count Lymph % (Auto) Lymph # (Auto) Seg Neutrophils % Lymphocytes % (Manual) Seg Neutrophils # Seg Neutrophils # Man Lymphocytes # (Manual) D-Dimer ABG pH POC ABG pCO2 POC ABG pO2 ABG Hemoglobin ABG Oxyhemoglobin ABG Sodium ABG Potassium ABG Chloride ABG Glucose Sodium Potassium Chloride Carbon Dioxide BUN Creatinine Glucose POC Glucose 160 H 168 H 111 H Calcium Magnesium Ferritin Alkaline Phosphatase Lactate Dehydrogenase Total Creatine Kinase CK-MB (CK-2) C-Reactive Protein Total Protein Albumin Triglycerides Arterial Blood Glucose Arterial Blood Ionized Calcium Coronavirus (PCR) SARS-CoV-2 IgG Ab 08/08/20 08/08/20 08/08/20 04:41 05:13 11:57 WBC RBC Hgb Hct MCV MCH MCHC RDW Plt Count Lymph % (Auto) Lymph # (Auto) Seg Neutrophils % Lymphocytes % (Manual) Seg Neutrophils # Seg Neutrophils # Man Lymphocytes # (Manual) D-Dimer ABG pH POC ABG pCO2 63.1 H POC ABG pO2 70.7 L ABG Hemoglobin 11.5 L ABG Oxyhemoglobin 91.0 L ABG Sodium 148.5 H ABG Potassium ABG Chloride 108.0 H ABG Glucose 102 H Sodium Potassium Chloride Carbon Dioxide BUN Creatinine Glucose POC Glucose 122 H 225 H Calcium Magnesium Ferritin Alkaline Phosphatase Lactate Dehydrogenase Total Creatine Kinase CK-MB (CK-2) C-Reactive Protein Total Protein Albumin Triglycerides Arterial Blood Glucose 102 H Arterial Blood Ionized Calcium Coronavirus (PCR) SARS-CoV-2 IgG Ab 08/08/20 08/08/20 08/09/20 17:16 23:06 05:22 WBC RBC Hgb Hct MCV MCH MCHC RDW Plt Count Lymph % (Auto) Lymph # (Auto) Seg Neutrophils % Lymphocytes % (Manual) Seg Neutrophils # Seg Neutrophils # Man Lymphocytes # (Manual) D-Dimer ABG pH POC ABG pCO2 POC ABG pO2 ABG Hemoglobin ABG Oxyhemoglobin ABG Sodium ABG Potassium ABG Chloride ABG Glucose Sodium Potassium Chloride Carbon Dioxide BUN Creatinine Glucose POC Glucose 188 H 129 H 112 H Calcium Magnesium Ferritin Alkaline Phosphatase Lactate Dehydrogenase Total Creatine Kinase CK-MB (CK-2) C-Reactive Protein Total Protein Albumin Triglycerides Arterial Blood Glucose Arterial Blood Ionized Calcium Coronavirus (PCR) SARS-CoV-2 IgG Ab 08/09/20 08/09/20 08/09/20 05:44 06:49 11:56 WBC RBC Hgb Hct MCV MCH MCHC RDW Plt Count Lymph % (Auto) Lymph # (Auto) Seg Neutrophils % Lymphocytes % (Manual) Seg Neutrophils # Seg Neutrophils # Man Lymphocytes # (Manual) D-Dimer ABG pH POC ABG pCO2 67.9 H POC ABG pO2 73.4 L ABG Hemoglobin 10.8 L ABG Oxyhemoglobin 92.7 L ABG Sodium 146.4 H ABG Potassium ABG Chloride ABG Glucose 165 H Sodium 151 H Potassium Chloride 108.8 H Carbon Dioxide 39 H BUN 32 H Creatinine 0.6 L Glucose 189 H POC Glucose 217 H Calcium 8.1 L Magnesium Ferritin Alkaline Phosphatase Lactate Dehydrogenase Total Creatine Kinase CK-MB (CK-2) C-Reactive Protein Total Protein Albumin Triglycerides Arterial Blood Glucose 165 H Arterial Blood Ionized Calcium Coronavirus (PCR) SARS-CoV-2 IgG Ab 08/09/20 08/09/20 08/10/20 17:01 23:35 05:00 WBC RBC Hgb Hct MCV MCH MCHC RDW Plt Count Lymph % (Auto) Lymph # (Auto) Seg Neutrophils % Lymphocytes % (Manual) Seg Neutrophils # Seg Neutrophils # Man Lymphocytes # (Manual) D-Dimer ABG pH POC ABG pCO2 POC ABG pO2 ABG Hemoglobin ABG Oxyhemoglobin ABG Sodium ABG Potassium ABG Chloride ABG Glucose Sodium 125 L D Potassium 3.5 L Chloride 88.7 L Carbon Dioxide 35 H BUN 25 H Creatinine 0.5 L Glucose 465 H POC Glucose 172 H 125 H Calcium 6.3 L D Magnesium Ferritin Alkaline Phosphatase Lactate Dehydrogenase Total Creatine Kinase CK-MB (CK-2) C-Reactive Protein Total Protein Albumin Triglycerides 1175 H Arterial Blood Glucose Arterial Blood Ionized Calcium Coronavirus (PCR) SARS-CoV-2 IgG Ab 08/10/20 08/10/20 08/10/20 05:09 05:24 08:00 WBC RBC Hgb Hct MCV MCH MCHC RDW Plt Count Lymph % (Auto) Lymph # (Auto) Seg Neutrophils % Lymphocytes % (Manual) Seg Neutrophils # Seg Neutrophils # Man Lymphocytes # (Manual) D-Dimer ABG pH 7.306 L POC ABG pCO2 75.1 H POC ABG pO2 76.1 L ABG Hemoglobin 10.7 L ABG Oxyhemoglobin ABG Sodium ABG Potassium ABG Chloride ABG Glucose 177 H Sodium 131 L Potassium Chloride 93.0 L Carbon Dioxide 35 H BUN 28 H Creatinine 0.6 L Glucose 433 H POC Glucose 161 H Calcium 6.6 L Magnesium Ferritin Alkaline Phosphatase Lactate Dehydrogenase Total Creatine Kinase CK-MB (CK-2) C-Reactive Protein Total Protein Albumin Triglycerides 869 H Arterial Blood Glucose 177 H Arterial Blood Ionized Calcium Coronavirus (PCR) SARS-CoV-2 IgG Ab 08/10/20 08/10/20 08/10/20 11:15 13:23 13:23 WBC RBC 3.18 L Hgb 10.1 L Hct 31.3 L MCV 98 H MCH MCHC RDW Plt Count 123 L Lymph % (Auto) Lymph # (Auto) Seg Neutrophils % Lymphocytes % (Manual) Seg Neutrophils # Seg Neutrophils # Man Lymphocytes # (Manual) D-Dimer ABG pH POC ABG pCO2 POC ABG pO2 ABG Hemoglobin ABG Oxyhemoglobin ABG Sodium ABG Potassium ABG Chloride ABG Glucose Sodium Potassium Chloride Carbon Dioxide 37 H BUN 29 H Creatinine 0.6 L Glucose 313 H POC Glucose 246 H Calcium 7.4 L Magnesium Ferritin Alkaline Phosphatase Lactate Dehydrogenase Total Creatine Kinase CK-MB (CK-2) C-Reactive Protein Total Protein Albumin Triglycerides Arterial Blood Glucose Arterial Blood Ionized Calcium Coronavirus (PCR) SARS-CoV-2 IgG Ab 08/10/20 08/10/20 08/10/20 13:23 16:43 23:20 WBC RBC Hgb Hct MCV MCH MCHC RDW Plt Count Lymph % (Auto) Lymph # (Auto) Seg Neutrophils % Lymphocytes % (Manual) Seg Neutrophils # Seg Neutrophils # Man Lymphocytes # (Manual) D-Dimer ABG pH POC ABG pCO2 POC ABG pO2 ABG Hemoglobin ABG Oxyhemoglobin ABG Sodium ABG Potassium ABG Chloride ABG Glucose Sodium Potassium Chloride Carbon Dioxide BUN Creatinine Glucose POC Glucose 238 H 111 H Calcium Magnesium Ferritin Alkaline Phosphatase Lactate Dehydrogenase Total Creatine Kinase CK-MB (CK-2) C-Reactive Protein 22.70 H Total Protein Albumin Triglycerides Arterial Blood Glucose Arterial Blood Ionized Calcium Coronavirus (PCR) SARS-CoV-2 IgG Ab 08/11/20 08/11/20 08/11/20 04:33 05:19 09:00 WBC RBC Hgb Hct MCV MCH MCHC RDW Plt Count Lymph % (Auto) Lymph # (Auto) Seg Neutrophils % Lymphocytes % (Manual) Seg Neutrophils # Seg Neutrophils # Man Lymphocytes # (Manual) D-Dimer ABG pH POC ABG pCO2 66.9 H POC ABG pO2 65.2 L ABG Hemoglobin 10.5 L ABG Oxyhemoglobin 91.7 L ABG Sodium ABG Potassium ABG Chloride ABG Glucose 124 H Sodium Potassium Chloride Carbon Dioxide 41 H* BUN 30 H Creatinine 0.5 L Glucose 204 H POC Glucose 106 H Calcium 8.1 L Magnesium Ferritin Alkaline Phosphatase Lactate Dehydrogenase Total Creatine Kinase CK-MB (CK-2) C-Reactive Protein Total Protein Albumin Triglycerides Arterial Blood Glucose 124 H Arterial Blood Ionized Calcium 4.5 L Coronavirus (PCR) SARS-CoV-2 IgG Ab 08/11/20 08/11/20 08/11/20 09:00 12:08 17:01 WBC RBC 3.01 L Hgb 9.6 L Hct 29.2 L MCV 97 H MCH MCHC RDW Plt Count Lymph % (Auto) Lymph # (Auto) Seg Neutrophils % Lymphocytes % (Manual) Seg Neutrophils # Seg Neutrophils # Man Lymphocytes # (Manual) D-Dimer ABG pH POC ABG pCO2 POC ABG pO2 ABG Hemoglobin ABG Oxyhemoglobin ABG Sodium ABG Potassium ABG Chloride ABG Glucose Sodium Potassium Chloride Carbon Dioxide BUN Creatinine Glucose POC Glucose 201 H 150 H Calcium Magnesium Ferritin Alkaline Phosphatase Lactate Dehydrogenase Total Creatine Kinase CK-MB (CK-2) C-Reactive Protein Total Protein Albumin Triglycerides Arterial Blood Glucose Arterial Blood Ionized Calcium Coronavirus (PCR) SARS-CoV-2 IgG Ab 08/11/20 08/12/20 08/12/20 23:17 03:31 04:00 WBC RBC 2.98 L Hgb 9.4 L Hct 28.7 L MCV 97 H MCH MCHC RDW Plt Count Lymph % (Auto) Lymph # (Auto) Seg Neutrophils % Lymphocytes % (Manual) Seg Neutrophils # Seg Neutrophils # Man Lymphocytes # (Manual) D-Dimer ABG pH POC ABG pCO2 65.1 H POC ABG pO2 ABG Hemoglobin 9.9 L ABG Oxyhemoglobin ABG Sodium 145.6 H ABG Potassium ABG Chloride ABG Glucose 106 H Sodium Potassium Chloride Carbon Dioxide BUN Creatinine Glucose POC Glucose 128 H Calcium Magnesium Ferritin Alkaline Phosphatase Lactate Dehydrogenase Total Creatine Kinase CK-MB (CK-2) C-Reactive Protein Total Protein Albumin Triglycerides Arterial Blood Glucose 106 H Arterial Blood Ionized Calcium Coronavirus (PCR) SARS-CoV-2 IgG Ab 08/12/20 08/12/20 08/12/20 04:00 07:14 08:32 WBC RBC Hgb Hct MCV MCH MCHC RDW Plt Count Lymph % (Auto) Lymph # (Auto) Seg Neutrophils % Lymphocytes % (Manual) Seg Neutrophils # Seg Neutrophils # Man Lymphocytes # (Manual) D-Dimer ABG pH POC ABG pCO2 POC ABG pO2 ABG Hemoglobin ABG Oxyhemoglobin ABG Sodium ABG Potassium ABG Chloride ABG Glucose Sodium 149 H 149 H Potassium Chloride Carbon Dioxide 39 H 39 H BUN 31 H 33 H Creatinine 0.5 L 0.5 L Glucose 173 H POC Glucose Calcium 8.0 L 8.1 L Magnesium Ferritin 1401.0 H Alkaline Phosphatase Lactate Dehydrogenase Total Creatine Kinase CK-MB (CK-2) C-Reactive Protein Total Protein Albumin Triglycerides Arterial Blood Glucose Arterial Blood Ionized Calcium Coronavirus (PCR) SARS-CoV-2 IgG Ab 08/12/20 08:32 WBC RBC Hgb Hct MCV MCH MCHC RDW Plt Count Lymph % (Auto) Lymph # (Auto) Seg Neutrophils % Lymphocytes % (Manual) Seg Neutrophils # Seg Neutrophils # Man Lymphocytes # (Manual) D-Dimer ABG pH POC ABG pCO2 POC ABG pO2 ABG Hemoglobin ABG Oxyhemoglobin ABG Sodium ABG Potassium ABG Chloride ABG Glucose Sodium Potassium Chloride Carbon Dioxide BUN Creatinine Glucose POC Glucose Calcium Magnesium Ferritin Alkaline Phosphatase Lactate Dehydrogenase 378 H Total Creatine Kinase CK-MB (CK-2) C-Reactive Protein 19.50 H Total Protein Albumin Triglycerides Arterial Blood Glucose Arterial Blood Ionized Calcium Coronavirus (PCR) SARS-CoV-2 IgG Ab
[2020-08-12] MEDS: ENOXAPARIN 100 MG/1 ML INJ SUB-Q SCH ×2 (09:43→22:27)
[2020-08-12] MEDS: dexAMETHasone 4 MG/ML VIAL IV SCH (09:44)
[2020-08-12] MEDS: CEFEPIME/NS 2 GM/100 ML 2 GM/100 ML BAG IV SCH ×2 (09:49→22:31)
[2020-08-12] MEDS: valACYclovir 500 MG TAB PO SCH ×2 (09:56→22:29)
[2020-08-12] MEDS: FAMOTIDINE 20 MG TAB PO SCH ×2 (09:56→22:26)
[2020-08-12] MEDS: ZINC SULFATE 220 MG CAP PO SCH (09:57)
[2020-08-12] MEDS: ASCORBIC ACID 500 MG TAB PO SCH ×2 (09:57→22:30)
[2020-08-12] MEDS: SENNOSIDES/DOCUSATE SODIUM 8.6/50 MG TAB PO SCH ×2 (09:57→22:30)
[2020-08-12 10:59] LABS: Bilirubin,Urine NEG (Negative); Blood,Urine NEG (Negative); Color,Urine Yellow (Yellow); Mucus,Urine FEW /HPF
[2020-08-12] MEDS ORDERED: SIMPLE SYRUP 15 ML FEEDTUBE PRN ×2 (11:33)
[2020-08-12] MEDS ORDERED: SODIUM BICARBONATE 325 MG TAB FEEDTUBE PRN (11:33)
[2020-08-12] MEDS ORDERED: LIPASE 10,500/PROTEASE 25,000/AMYLASE 43,750 (UNITS) DR CAP FEEDTUBE PRN (11:33)
--- NOTE | 2020-08-12 15:12 | Vascular Lab Report ---
DUPLEX DOPPLER LOWER EXTREMITY VEINS, BILATERAL INDICATION / CLINICAL INFORMATION: Hypoxia, pneumonia. TECHNIQUE: Duplex doppler imaging was performed through the veins of both lower extremities using venous wesly markos and other maneuvers. COMPARISON: None available. FINDINGS: RIGHT COMMON FEMORAL VEIN: Negative. RIGHT FEMORAL VEIN: Negative. RIGHT POPLITEAL VEIN: Negative. RIGHT CALF VEINS: Negative. LEFT COMMON FEMORAL VEIN: Negative. LEFT FEMORAL VEIN: Negative. LEFT POPLITEAL VEIN: Negative. LEFT CALF VEINS: Negative. ADDITIONAL FINDINGS: None. IMPRESSION: 1. No sonographic evidence for DVT in either lower extremity. Signer Name: Morgan Magana MD Signed: 08/12/2020 3:07 PM Workstation Name: [id number]
[2020-08-12] MEDS: CHOLECALCIFEROL (VIT D3) 5,000 UNIT TAB PO SCH (15:37)
[2020-08-12] MEDS: traZODone 50 MG TAB PO SCH (22:43)
[2020-08-13] MEDS: fentaNYL DRIP Premix 2,000 MCG/100 ML BAG IV SCH ×4 (02:53→20:54)
[2020-08-13] MEDS: INSULIN LISPRO 100 UNIT/ML VIAL 3 mL SUB-Q SCH ×4 (03:43→18:05)
[2020-08-13 07:05] LABS: Blood Urea Nitrogen 31 mg/dL (9-20); Calcium 8.2 mg/dL (8.4-10.2); Hemolysis Index 3
[2020-08-13 08:32] LABS: BUN/Creatinine Ratio 62
[2020-08-13] MEDS: FAMOTIDINE 20 MG TAB PO SCH ×2 (09:10→21:34)
[2020-08-13] MEDS: CHOLECALCIFEROL (VIT D3) 5,000 UNIT TAB PO SCH (09:10)
[2020-08-13] MEDS: ZINC SULFATE 220 MG CAP PO SCH (09:11)
[2020-08-13] MEDS: SENNOSIDES/DOCUSATE SODIUM 8.6/50 MG TAB PO SCH ×2 (09:11→21:34)
[2020-08-13] MEDS: dexAMETHasone 4 MG/ML VIAL IV SCH (09:11)
[2020-08-13] MEDS: ENOXAPARIN 100 MG/1 ML INJ SUB-Q SCH ×2 (09:11→21:33)
[2020-08-13] MEDS: ASCORBIC ACID 500 MG TAB PO SCH ×2 (09:11→21:34)
[2020-08-13] MEDS: CEFEPIME/NS 2 GM/100 ML 2 GM/100 ML BAG IV SCH (09:12)
--- NOTE | 2020-08-13 13:30 | Progress Note ---
Assessment and Plan Assessment and plan: 60 YO Male HD #23 with acute hypoxemic respiratory failure, bilateral pneumonia secondary to coronavirus infection, cough who is currently intubated and on ventilatory support. Patient has poor prognosis. Patient currently unable to be weaned from ventilatory support. Patient has poor prognosis. No acute decompensation overnight. Closely monitor the patient and adjust management as needed Follow CTA chest, and inflammatory markers Consults recommendations noted and appreciated Plan of care reviewed with the patient and his nurse 07/20; patient is severely hypoxemic, on high flow oxygen 40 L/100%/O2 sats 95 Elevated D-dimers, patient is severely hypoxemic, will check CTA chest to rule out PE Also consider lower extremity venous Doppler to rule out DVT 07/21: Patient remains on high flow oxygen however mild improvement from 40 L to 35 l Tolerating prone position, continue steroids remdesivir CTA chest negative for PE, lower extremity venous Doppler negative for DVT Consults recommendations noted and appreciated Poor prognosis, patient is aware 07/22/2020; patient feels slightly better remains on high flow oxygen however lower than yesterday 35 L/95% /O2 sat 94% 07/21/2020 advised the patient to rest in prone position as tolerated Home oxygen evaluation 07/23/2020; remains on high flow oxygen, continue steroids remdesivir, prone position and comfort care Patient is critically ill with very poor prognosis and prolonged hypoxemia on high flow oxygen Plan of care reviewed with the patient and his nurse 07/24/2020; patient was severely hypoxemic rapid response called oxygen settings adjusted patient is currently better, requiring high flow oxygen right from the day he was admitted, poor prognosis, discussed with patient's 07/25/2020; patient remains on high flow oxygen in mild distress, overall prognosis poor I discussed with , and family friend physician extensively yesterday Poor prognosis continue current management 07/26/2020; patient remains on high flow oxygen 40 L/100%/95% O2 sat +100% nonrebreather Patient is critically ill, poor prognosis, ID pulmonary following 07/27/2020; patient remains on high flow oxygen 40 L/100%/[address] 100% nonrebreather Very poor prognosis, patient and family aware Pulmonary recommendations noted and appreciated 07/28/2020; patient remains critically ill, remains dependent on high flow oxygen 40 L +100% nonrebreather Very poor prognosis. 07/29/2020 Remains critically ill On high flow oxygen 07/30/2020 On high flow oxygen Is critically ill 07/31/2020 On high flow oxygen Critically ill 08/01/2020 on high flow oxygen Critically ill 08/02/2020 On Vent Weaning in progress 08/03/20 On Vent Weaning in progress 08/04/20 On vent Weaning in progress 08/05/20 Did not increase PEEP yesterday. PaO2 improved on own. Will wean FiO2 down today for sats >88%. Hold on proning for now. Continue steroids. Needs better rate control. Most likely sinus tach from hypoxemia, 08/08: Patient remains on full ventilatory support, critically ill, Proninng per Party Plan Sales Host/Hostess. Down to 60% oxygen FIO2. PEEP Lasix 20mg IV x 1 today, Consider changing to full dose anticoagulation. Discussed with Party Plan Sales Host/Hostess. Check Osmolality. Monitor Plt considering Lovenox Spoke with extensively and sister. 08/10; Continue supportive care, No significant clinical change, monitor for fever, continue pronining if tolerated. Being changed to Versed due to worsening triglycerides propofol has been stopped. Will discuss with critical care physician if some additional Lasix trial will be done as well monitoring patient's renal function. I have called and left a message for the family. 08/11: Continues with persistent hypoxia and hypercapnia. Intermittent fever. No elevated leukocytosis. Will reconsult ID to assist with management of this. Continue on full dose anticoagulation while monitoring H&H. We will hold off any further Lasix due to noted elevated bicarb. We will continue to monitor 08/12: Discussed with nursing staff. Also reviewed retail sales associate seasonal per document ation. Patient remains critically ill with no change for the better or for worse. Discussed with nursing staff patient still moves around but nonpurposeful movements not following commands. Will reevaluate during sedation vacation. We will continue to monitor hypernatremia and adjust fluids to help with improvement. I have called and update family, answered all questions. We will continue pronging 08/13: Updated family, Unfortunately no improvement, Will discuss with Party Plan Sales Host/Hostess if Diamox should be tried. Continue monitoring and on Restraints. --Acute hypoxc respiratory failure on Vent Current Visit: Yes Status: Acute Plan to address problem: Weaning in progress -- Hypernatremia increase water intake --COVID-19 positive Continue contact and droplet isolation, --Elevated D-dimers; CTA chest negative for PE, mild pulmonary edema, -- Pneumonia Current Visit: Yes Status: Acute Plan to address problem: Off antibiotics --Severe protein calorie Malnutrition Fish Cleaner consult -- Throbocytopenia -- Acute Metabolic Encephalopathy ---DVT prophylaxis Current Visit: Yes Status: Acute Plan to address problem: Patient placed on subcutaneous Lovenox. -- Full code status Current Visit: Yes Status: Acute Plan to address problem: Patient is a full code. Advance care planning Current Visit: Yes Status: Acute Plan to address problem: Disease education conducted, patient is full code, patient has poor prognosis. Prognosis discussed. +30 minutes. The high probability of a clinically significant, sudden or life threatening deterioration of the [cardiac, pulmonary, neuro] system(s) required my full and direct attention, intervention and personal management. The aggregate critical care time was [45] minutes. This time is in addition to time spent performing reported procedures but includes the following: [x] Data Review and interpretation [x] Patient assessment and monitoring of vital signs [x] Documentation [x] Medication orders and management History Interval history: Patient seen and examined, unfortunately remains critically ill. Not following any commands per nurse during sedation vacation Hospitalist Physical - Physical exam Narrative exam: General appearance: Present:on full ventilatory support, sedated - EENT Eyes: Present: miosis ENT: Not following commands - Neck Neck: Present: supple - Respiratory Respiratory effort: labored still mildly increased wob Respiratory: bilateral: diminished, rhonchi - Cardiovascular Rhythm: Regular but tachycardic Heart Sounds: Present: S1 & S2 - Extremities Extremities: no ischemia Peripheral Pulses: within normal limits - Abdominal General gastrointestinal: soft, non-tender, non-distended - Integumentary Integumentary: Present: dry - Psychiatric Psychiatric: no appropriate mood/affect, no intact judgment & insight, no memory intact - Neurologic Neurologic: CNII-XII intact, no gait normal - Constitutional Vitals: Temp Pulse Resp BP Pulse Ox 98.3 F 122 H 21 139/84 96 08/13/20 08:00 08/13/20 13:15 08/13/20 13:15 08/13/20 13:15 08/13/20 13:15 General appearance: Present: no acute distress, well-nourished HEART Score - HEART Score Troponin: Troponin T 0.018 ng/mL (0.00-0.029) 07/30/20 10:33 Results - Labs CBC & Chem 7: 08/12/20 04:00 08/13/20 06:30 Labs: Laboratory Last Values WBC 7.4 K/mm3 (4.5-11.0) 08/12/20 04:00 RBC 2.98 M/mm3 (3.65-5.03) L 08/12/20 04:00 Hgb 9.4 gm/dl (11.8-15.2) L 08/12/20 04:00 Hct 28.7 % (35.5-45.6) L 08/12/20 04:00 MCV 97 fl (84-94) H 08/12/20 04:00 MCH 31 pg (28-32) 08/12/20 04:00 MCHC 33 % (32-34) 08/12/20 04:00 RDW 13.8 % (13.2-15.2) 08/12/20 04:00 Plt Count 167 K/mm3 (140-440) 08/12/20 04:00 Lymph % (Auto) 11.5 % (13.4-35.0) L 08/07/20 04:00 Pope % (Auto) 3.2 % (0.0-7.3) 08/07/20 04:00 Eos % (Auto) 2.1 % (0.0-4.3) 08/07/20 04:00 Baso % (Auto) 0.3 % (0.0-1.8) 08/07/20 04:00 Lymph # (Auto) 1.3 K/mm3 (1.2-5.4) 08/07/20 04:00 Pope # (Auto) 0.3 K/mm3 (0.0-0.8) 08/07/20 04:00 Eos # (Auto) 0.2 K/mm3 (0.0-0.4) 08/07/20 04:00 Baso # (Auto) 0.0 K/mm3 (0.0-0.1) 08/07/20 04:00 Add Manual Diff Complete 07/18/20 04:31 Total Counted 100 07/18/20 04:31 Seg Neutrophils % 82.9 % (40.0-70.0) H 08/07/20 04:00 Lymphocytes % (Manual) 5.0 % (13.4-35.0) L 07/18/20 04:31 Monocytes % (Manual) 3.0 % (0.0-7.3) 07/18/20 04:31 Nucleated RBC % Not Reportable 07/18/20 04:31 Seg Neutrophils # 9.0 K/mm3 (1.8-7.7) H 08/07/20 04:00 Seg Neutrophils # Man 8.1 K/mm3 (1.8-7.7) H 07/18/20 04:31 Band Neutrophils # 0.0 K/mm3 07/18/20 04:31 Lymphocytes # (Manual) 0.4 K/mm3 (1.2-5.4) L 07/18/20 04:31 Abs React Lymphs (Man) 0.0 K/mm3 07/18/20 04:31 Monocytes # (Manual) 0.3 K/mm3 (0.0-0.8) 07/18/20 04:31 Eosinophils # (Manual) 0.0 K/mm3 (0.0-0.4) 07/18/20 04:31 Basophils # (Manual) 0.0 K/mm3 (0.0-0.1) 07/18/20 04:31 Metamyelocytes # 0.0 K/mm3 07/18/20 04:31 Myelocytes # 0.0 K/mm3 07/18/20 04:31 Promyelocytes # 0.0 K/mm3 07/18/20 04:31 Blast Cells # 0.0 K/mm3 07/18/20 04:31 WBC Morphology Not Reportable 07/18/20 04:31 Hypersegmented Neuts Not Reportable 07/18/20 04:31 Hyposegmented Neuts Not Reportable 07/18/20 04:31 Hypogranular Neuts Not Reportable 07/18/20 04:31 Smudge Cells Not Reportable 07/18/20 04:31 Toxic Granulation Not Reportable 07/18/20 04:31 Toxic Vacuolation Not Reportable 07/18/20 04:31 Dohle Bodies Not Reportable 07/18/20 04:31 Pelger-Huet Anomaly Not Reportable 07/18/20 04:31 Cheri Rods Not Reportable 07/18/20 04:31 Platelet Estimate Consistent w auto 07/18/20 04:31 Clumped Platelets Not Reportable 07/18/20 04:31 Plt Clumps, EDTA Not Reportable 07/18/20 04:31 Large Platelets Not Reportable 07/18/20 04:31 Giant Platelets Not Reportable 07/18/20 04:31 Platelet Satelliting Not Reportable 07/18/20 04:31 Plt Morphology Comment Not Reportable 07/18/20 04:31 RBC Morphology Not Reportable 07/18/20 04:31 Dimorphic RBCs Not Reportable 07/18/20 04:31 Polychromasia Not Reportable 07/18/20 04:31 Hypochromasia Not Reportable 07/18/20 04:31 Poikilocytosis Not Reportable 07/18/20 04:31 Anisocytosis 1+ 07/18/20 04:31 Microcytosis Not Reportable 07/18/20 04:31 Macrocytosis Not Reportable 07/18/20 04:31 Spherocytes Not Reportable 07/18/20 04:31 Pappenheimer Bodies Not Reportable 07/18/20 04:31 Sickle Cells Not Reportable 07/18/20 04:31 Target Cells Not Reportable 07/18/20 04:31 Tear Drop Cells Not Reportable 07/18/20 04:31 Ovalocytes Not Reportable 07/18/20 04:31 Helmet Cells Not Reportable 07/18/20 04:31 [place] Bodies Not Reportable 07/18/20 04:31 [place] Rings Not Reportable 07/18/20 04:31 Jose Enrique Cells Not Reportable 07/18/20 04:31 Bite Cells Not Reportable 07/18/20 04:31 Crenated Cell Not Reportable 07/18/20 04:31 Elliptocytes Not Reportable 07/18/20 04:31 Acanthocytes (Spur) Not Reportable 07/18/20 04:31 Rouleaux Not Reportable 07/18/20 04:31 Hemoglobin C Crystals Not Reportable 07/18/20 04:31 Schistocytes Not Reportable 07/18/20 04:31 Malaria parasites Not Reportable 07/18/20 04:31 ESR > 140.0 mm/Hr (0-20) 08/10/20 13:23 Wilfredo Bodies Not Reportable 07/18/20 04:31 Hem Pathologist Commnt No 07/18/20 04:31 PT 13.7 Sec. (12.2-14.9) 07/18/20 04:31 INR 1.06 (0.87-1.13) 07/18/20 04:31 D-Dimer 5413.39 ng/mlDDU (0-234) H 08/12/20 08:32 ABG pH 7.385 (7.320-7.450) 08/12/20 03:31 POC ABG pCO2 65.1 mmHg (32.0-48.0) H 08/12/20 03:31 POC ABG pO2 83.8 mmHg (83-108) 08/12/20 03:31 POC ABG HCO3 38.1 08/12/20 03:31 POC ABG Base Excess 11.2 08/12/20 03:31 ABG Hemoglobin 9.9 (12.0-17.5) L 08/12/20 03:31 ABG Oxyhemoglobin 91.7 (94-98) L 08/11/20 04:33 ABG Methemoglobin 0.3 (0.0-1.5) 08/11/20 04:33 ABG Sodium 145.6 mmol/L (136.0-145.0) H 08/12/20 03:31 ABG Potassium 4.4 mmol/L (3.40-4.50) 08/12/20 03:31 ABG Chloride 105.0 mmol/L (98-107) 08/12/20 03:31 ABG Glucose 106 mg/dL (65-95) H 08/12/20 03:31 Carboxyhemoglobin 1.3 (0.5-1.5) 08/11/20 04:33 FiO2 60 08/12/20 03:31 Sodium 148 mmol/L (137-145) H 08/13/20 06:30 Potassium 4.6 mmol/L (3.6-5.0) 08/13/20 06:30 Chloride 105.0 mmol/L (98-107) 08/13/20 06:30 Carbon Dioxide 41 mmol/L (22-30) H* 08/13/20 06:30 Anion Gap 7 mmol/L 08/13/20 06:30 BUN 31 mg/dL (9-20) H 08/13/20 06:30 Creatinine 0.5 mg/dL (0.8-1.3) L 08/13/20 06:30 Estimated GFR > 60 ml/min 08/13/20 06:30 BUN/Creatinine Ratio 62 % 08/13/20 06:30 Glucose 145 mg/dL (75-100) H 08/13/20 06:30 POC Glucose 205 mg/dL (70-105) H 08/13/20 12:08 Osmolality 332 Mosm/kg 08/08/20 19:14 Lactic Acid 1.30 mmol/L (0.7-2.0) 08/10/20 13:23 Calcium 8.2 mg/dL (8.4-10.2) L 08/13/20 06:30 Phosphorus 2.60 mg/dL (2.5-4.5) 08/08/20 12:40 Magnesium 2.20 mg/dL (1.7-2.3) 08/08/20 12:40 Ferritin 1401.0 ng/mL (30.0-300.0) H 08/12/20 08:32 Total Bilirubin 0.40 mg/dL (0.1-1.2) 08/07/20 04:00 Direct Bilirubin < 0.2 mg/dL (0-0.2) 07/22/20 04:31 Indirect Bilirubin 0.0 mg/dL 07/22/20 04:31 AST 21 units/L (5-40) 08/07/20 04:00 ALT 44 units/L (7-56) 08/07/20 04:00 Alkaline Phosphatase 99 units/L (35-129) 08/07/20 04:00 Lactate Dehydrogenase 378 units/L (91-180) H 08/12/20 08:32 Total Creatine Kinase 174 units/L (55-170) H 07/30/20 10:33 CK-MB (CK-2) 4.5 ng/mL (0.0-4.0) H 07/30/20 10:33 CK-MB (CK-2) Rel Index 2.5 (0-4) 07/30/20 10:33 Troponin T 0.018 ng/mL (0.00-0.029) 07/30/20 10:33 C-Reactive Protein 19.50 mg/dL (0.00-1.30) H 08/12/20 08:32 NT-Pro-B Natriuret Pep 290.3 pg/mL (0-900) 07/18/20 16:33 Total Protein 5.4 g/dL (6.3-8.2) L 08/07/20 04:00 Albumin 2.8 g/dL (3.9-5) L 08/07/20 04:00 Albumin/Globulin Ratio 1.1 % 08/07/20 04:00 Triglycerides 167 mg/dL (2-149) H 08/13/20 06:30 Procalcitonin 0.57 ng/mL (<0.15) 08/12/20 08:32 Arterial Blood Glucose 106 mg/dL (65-95) H 08/12/20 03:31 Arterial Blood Ionized Calcium 4.6 mg/dL (4.6-5.3) 08/12/20 03:31 Urine Color Yellow (Yellow) 08/12/20 10:05 Urine Turbidity Clear (Clear) 08/12/20 10:05 Urine pH 6.0 (5.0-7.0) 08/12/20 10:05 Ur Specific [place] 1.023 (1.003-1.030) 08/12/20 10:05 Urine Protein 30 mg/dl mg/dL (Negative) 08/12/20 10:05 Urine Glucose (UA) Neg mg/dL (Negative) 08/12/20 10:05 Urine Ketones Neg mg/dL (Negative) 08/12/20 10:05 Urine Blood Neg (Negative) 08/12/20 10:05 Urine Nitrite Neg (Negative) 08/12/20 10:05 Urine Bilirubin Neg (Negative) 08/12/20 10:05 Urine Urobilinogen 4.0 mg/dL (<2.0) 08/12/20 10:05 Ur Leukocyte Esterase Neg (Negative) 08/12/20 10:05 Urine WBC (Auto) 5.0 /HPF (0.0-6.0) 08/12/20 10:05 Urine RBC (Auto) 13.0 /HPF (0.0-6.0) 08/12/20 10:05 U Epithel Cells (Auto) < 1.0 /HPF (0-13.0) 08/12/20 10:05 Hyaline Casts 1 /LPF 08/02/20 11:30 Granular Casts 1 /LPF 08/02/20 11:30 Urine Mucus Few /HPF 08/12/20 10:05 Nasal Screen MRSA (PCR) Negative (Negative) 08/12/20 10:05 Coronavirus (PCR) Positive (Negative) A 07/18/20 08:50 SARS-CoV-2 IgG Ab Reactive (NonReactive) A 07/21/20 05:24 Microbiology: Microbiology 08/10/20 13:23 Peripheral/Venous Blood Culture - Preliminary NO GROWTH AFTER 48 HOURS 08/10/20 13:23 Peripheral/Venous Blood Culture - Preliminary NO GROWTH AFTER 48 HOURS 08/12/20 08:24 Tracheal Aspirate Sputum Culture - Preliminary [place]/IV: Voiding Method Indwelling Catheter IV Catheter Type [Left Upper PICC Line arm] IV Catheter Type [Left Hand] INT / Saline Lock IV Catheter Type [Left Wrist] INT / Saline Lock IV Catheter Type [Left INT / Saline Lock Antecubital] IV Catheter Type [Right Distal INT / Saline Lock Port Hand] Active Medications - Current Medications Current Medications: Generic Name Dose Route Start Last Admin Trade Name Freq PRN Reason Stop Dose Admin Acetaminophen 650 mg 07/17/20 22:21 08/06/20 13:14 Acetaminophen 325 Mg Tab PO 650 mg Q4H PRN Administration Pain MILD(1-3)/Fever >100.5/AWAD Albuterol 2.5 mg 07/18/20 16:14 07/18/20 19:45 Albuterol 2.5 Mg/3 Ml Nebu IH 2.5 mg Q4HRT PRN Administration Shortness Of Breath Lipase/Protease/Amylase 1 each 07/31/20 12:23 Lipase 10,500/Protease 25,000/Amylase 43,750 (Units) Dr Olson FEEDTUBE PRN PRN For Clogged Feeding Tube Ascorbic Acid 1,000 mg 08/08/20 22:00 08/13/20 09:11 Ascorbic Acid 500 Mg Tab PO 1,000 mg BID SHERON Administration Cholecalciferol 5,000 unit 08/08/20 19:00 08/13/20 09:10 Cholecalciferol (Vit D3) 5,000 Unit Tab PO 5,000 unit DAILY SHERON Administration Dexamethasone 6 mg 07/31/20 11:00 08/13/20 09:11 Dexamethasone 4 Mg/Ml Vial IV 08/15/20 10:59 6 mg Q24HR SHERON Administration Dextrose 50 ml 08/06/20 13:14 Dextrose 50% In Water (25gm) 50 Ml Syringe IV Q30MIN PRN Hypoglycemia Protocol Enoxaparin Sodium 90 mg 08/08/20 22:00 08/13/20 09:11 Enoxaparin 100 Mg/1 Ml Inj 1 mg/kg (90 mg) 90 mg SUB-Q Administration Q12HR [facility] Protocol Famotidine 20 mg 08/01/20 10:00 08/13/20 09:10 Famotidine 20 Mg Tab PO 20 mg BID SHERON Administration Hydrophilic Ointment 1 applic 07/31/20 11:00 Lip Therapy Vaseline TP Q2H PRN Dry Lips Norepinephrine 4 mg in 250 mls @ 7.5 mls/hr 07/31/20 09:00 08/01/20 02:37 Levophed Drip 4 Mg/Ns 250 Ml IV 0 mcg/min TITR SHERON 0 mls/hr Titration Protocol 2 MCG/MIN Fentanyl Citrate 2,000 mcg in 100 mls @ 4.43 mls/hr 07/31/20 11:00 08/13/20 09:11 Fentanyl Drip Premix IV 4 mcg/kg/hr TITR SHERON 17.72 mls/hr Administration Protocol 1 MCG/KG/HR Midazolam HCl 100 mg/ Sodium 100 mls @ 2 mls/hr 08/10/20 11:00 08/12/20 22:25 Chloride IV 5 mg/hr TITR SHERON 5 mls/hr Administration Protocol 2 MG/HR Cefepime HCl 2 gm in 100 mls @ 200 mls/hr 08/12/20 10:00 08/13/20 09:12 Cefepime/Ns 2 Gm/100 Ml IV 200 mls/hr Q12HR [facility] Administration Protocol Insulin Human Lispro 0 unit 08/07/20 00:00 08/13/20 07:41 Insulin Lispro 100 Unit/Ml Vial 3 Ml SUB-Q Not Given Q6HR [facility] Protocol Lorazepam 2 mg 08/08/20 11:36 08/11/20 13:45 Lorazepam 2 Mg/Ml Vial IV 2 mg Q4H PRN Administration Agitation Magnesium Hydroxide 30 ml 07/17/20 22:21 08/05/20 11:11 Magnesium Hydroxide (Mom) Oral Liqd Udc PO 30 ml Q4H PRN Administration Constipation Multi-Ingred Cream/Lotion/Oil/Oint 1 applic 07/31/20 10:55 Mineral Oil/Petrolatum, White Ophth Oint 3.5 Gm OU Q4H PRN Dry Eye(s) Ondansetron HCl 4 mg 07/17/20 22:21 07/20/20 02:21 Ondansetron 4 Mg/2 Ml Inj IV 4 mg Q8H PRN Administration Nausea And Vomiting Senna/Docusate Sodium 2 tab 08/03/20 11:00 08/13/20 09:11 Sennosides/Docusate Sodium 8.6/50 Mg Tab PO 2 tab BID SHERON Administration Simple Syrup 15 ml 07/31/20 12:23 Simple Syrup 15 Ml FEEDTUBE PRN PRN Hypoglycemia Simple Syrup 30 ml 07/31/20 12:23 Simple Syrup 15 Ml FEEDTUBE PRN PRN Hypoglycemia Sodium Bicarbonate 325 mg 07/31/20 12:23 Sodium Bicarbonate 325 Mg Tab FEEDTUBE PRN PRN For Clogged Feeding Tube Sodium Chloride 10 ml 07/17/20 22:01 07/17/20 22:13 Sodium Chloride 0.9% 10 Ml Flush Syringe IV 10 ml PRN PRN Administration LINE FLUSH Sodium Chloride 10 ml 07/18/20 10:00 08/13/20 09:12 Sodium Chloride 0.9% 10 Ml Flush Syringe IV 10 ml BID SHERON Administration Trazodone HCl 50 mg 07/30/20 22:00 08/12/20 22:43 Trazodone 50 Mg Tab PO 50 mg QHS SHERON Administration Zinc Sulfate 220 mg 08/08/20 19:00 08/13/20 09:11 Zinc Sulfate 220 Mg Cap PO 220 mg QDAY SHERON Administration Nutrition/Malnutrition Assess - Dietary Evaluation Nutrition/Malnutrition Findings: Nutrition Notes Start: 07/23/20 13:19 Freq: Status: Active Protocol: Document 08/12/20 11:28 CW (Rec: 08/12/20 12:16 CW [id number]) Co-Sign 08/12/20 11:28 MK Nutrition Notes Need for Assessment generated from: MD Order Initial or Follow up Reassessment Current Diagnosis Respiratory Failure Other Pertinent Diagnosis COVID-19 (+), pneu, prerenal azotemia Current Diet Vital AF 1.2 at 70 mL/hr Labs/Tests Na 149 BUN 33 Cr 0.5 BG 173 Pertinent Medications Decadron Height 5 ft 11 in Weight 89.4 kg [place] Body Weight (kg) 78.18 BMI 27.4 Weight change and time frame Wt change noted, pt oliguric Weight Status Overweight Subjective/Other Information FU for Na, water flushes, prone status, and TF tolerance . Per MD consult for TF management, discussed with RN about total fluid volume given and needed flushes for hypernatremia during proning. Observed pt supine with 120ml/ hr TF running. Pt tolerating TF. Percent of energy/protein needs met: 96%/100% Burn Absent Trauma Absent GI Symptoms None Difficulty In Swallowing Current % PO Negligible Minimum of two criteria Yes Energy Intake (severe) < or equal to 50% Estimated Energy Requirement > or equal to 5 days Fluid Accumulation Mild (non-severe) Reduced Admissions Clerk Strength Measurably Reduced (severe) #2 Nutrition Diagnosis Malnutrition Diagnosis Progress(for reassessment Continues documentation) #1 Nutrition Diagnosis Inadequate oral intake Diagnosis Progress(for reassessment Continues documentation) Is patient on ventilator? Yes Is Patient Ambulatory and/or Out of Bed No [facility] [phone] Calculation Used for Recommendations [facility] Additional Notes Pro needs 1.2-2g/k-178g/ day Fluid needs 1ml/kcal Nutrition Intervention Change Diet Order: Continue TF Nutrition Support: Vital AF 1.2 at 70ml/hr with 300ml water flush q4h until hypernatremia resolved; then 115ml q4h. When pronin hr proned: Vital AF 1.2 at 20 ml/hr, flush 100 ml q4h for hypernatremia, or per MD; then 50 ml q4h once resolved. 12 hr supine: Vital AF 1.2 at 120 ml/hr, flush 350 ml q4h for hypernatremia, or per MD; then 180 q4h once resolved. Kcal 2,016 Protein (gm) 126 Fluid (mL) 1,362 Goal #1 Continued TF tolerance Goal #2 Continue to meet at least 75% of estimated energy and protein needs via TF. Anticipated Discharge Needs: Unable to determine at this time Follow-Up By: 08/16/20 Additional Comments FU for TF tolerance, prone status, hypernatremia
--- NOTE | 2020-08-13 19:39 | Progress Note ---
Assessment and Plan Imp: 1. Covid-19 2. Viral pneumonia 3. ARDS 4. Acute respiratory failure, hypoxia 5. Hypernatremia 6. Contraction alkalosis versus compensation for chronic respiratory acidosis Rec: 1. Wean FiO2 to keep sats 88% or >; wean PEEP once FiO2 to 50% or less 2. Hold proning if possible this AM due to improved oxygenation and facial skin breakdown (can do prn if worsening hypoxia ensues) 3. D5W at 50mL/hour x 24 hours; increase free water to 200mL [id number]; hold diuresis; hold off on Diamox given worsening pH today 4. Decadron 5. TFs, supportive care 6. Guarded prognosis CCt 31 minutes Subjective Date of service: 08/13/20 Principal diagnosis: Acute respiratory failure with hypoxia, Covid pneumonia Interval history: No events. Sedated on ventilator. Cannot give history. On 60% FiO2 and PEEP of 16. Active Medications Acetaminophen (Acetaminophen 325 Mg Tab) 650 mg PO Q4H PRN PRN Reason: Pain MILD(1-3)/Fever >100.5/AWAD Last Admin: 08/06/20 13:14 Dose: 650 mg Documented by: Albuterol (Albuterol 2.5 Mg/3 Ml Nebu) 2.5 mg IH Q4HRT PRN PRN Reason: Shortness Of Breath Last Admin: 07/18/20 19:45 Dose: 2.5 mg Documented by: Lipase/Protease/Amylase (Lipase 10,500/Protease 25,000/Amylase 43,750 (Units) Dr Olson) 1 each FEEDTUBE PRN PRN PRN Reason: For Clogged Feeding Tube Ascorbic Acid (Ascorbic Acid 500 Mg Tab) 1,000 mg PO BID [facility] Last Admin: 08/13/20 09:11 Dose: 1,000 mg Documented by: Cholecalciferol (Cholecalciferol (Vit D3) 5,000 Unit Tab) 5,000 unit PO DAILY [facility] Last Admin: 08/13/20 09:10 Dose: 5,000 unit Documented by: Dexamethasone (Dexamethasone 4 Mg/Ml Vial) 6 mg IV Q24HR [facility] Stop: 08/15/20 10:59 Last Admin: 08/13/20 09:11 Dose: 6 mg Documented by: Dextrose (Dextrose 50% In Water (25gm) 50 Ml Syringe) 50 ml IV Q30MIN PRN; Protocol PRN Reason: Hypoglycemia Enoxaparin Sodium (Enoxaparin 100 Mg/1 Ml Inj) 90 mg 1 mg/kg (90 mg) SUB-Q Q12HR [facility]; Protocol Last Admin: 08/13/20 09:11 Dose: 90 mg Documented by: Famotidine (Famotidine 20 Mg Tab) 20 mg PO BID [facility] Last Admin: 08/13/20 09:10 Dose: 20 mg Documented by: Hydrophilic Ointment (Lip Therapy Vaseline) 1 applic TP Q2H PRN PRN Reason: Dry Lips Norepinephrine (Levophed Drip 4 Mg/Ns 250 Ml) 4 mg in 250 mls @ 7.5 mls/hr IV TITR [facility]; Protocol Last Titration: 08/01/20 02:37 Dose: 0 mcg/min, 0 mls/hr Documented by: Fentanyl Citrate (Fentanyl Drip Premix) 2,000 mcg in 100 mls @ 4.43 mls/hr IV TITR [facility]; Protocol Last Admin: 08/13/20 15:18 Dose: 4 mcg/kg/hr, 17.72 mls/hr Documented by: Midazolam HCl 100 mg/ Sodium (Chloride) 100 mls @ 2 mls/hr IV TITR [facility]; Protocol Last Admin: 08/12/20 22:25 Dose: 5 mg/hr, 5 mls/hr Documented by: Cefepime HCl (Cefepime/Ns 2 Gm/100 Ml) 2 gm in 100 mls @ 200 mls/hr IV Q12HR [facility]; Protocol Last Admin: 08/13/20 09:12 Dose: 200 mls/hr Documented by: Dextrose (D5w) 1,000 mls @ 50 mls/hr IV DIRECT [facility] Insulin Human Lispro (Insulin Lispro 100 Unit/Ml Vial 3 Ml) 0 unit SUB-Q Q6HR [facility]; Protocol Last Admin: 08/13/20 18:05 Dose: 3 unit Documented by: Lorazepam (Lorazepam 2 Mg/Ml Vial) 2 mg IV Q4H PRN PRN Reason: Agitation Last Admin: 08/11/20 13:45 Dose: 2 mg Documented by: Magnesium Hydroxide (Magnesium Hydroxide (Mom) Oral Liqd Udc) 30 ml PO Q4H PRN PRN Reason: Constipation Last Admin: 08/05/20 11:11 Dose: 30 ml Documented by: Multi-Ingred Cream/Lotion/Oil/Oint (Mineral Oil/Petrolatum, White Ophth Oint 3.5 Gm) 1 applic OU Q4H PRN PRN Reason: Dry Eye(s) Ondansetron HCl (Ondansetron 4 Mg/2 Ml Inj) 4 mg IV Q8H PRN PRN Reason: Nausea And Vomiting Last Admin: 07/20/20 02:21 Dose: 4 mg Documented by: Senna/Docusate Sodium (Sennosides/Docusate Sodium 8.6/50 Mg Tab) 2 tab PO BID [facility] Last Admin: 08/13/20 09:11 Dose: 2 tab Documented by: Simple Syrup (Simple Syrup 15 Ml) 15 ml FEEDTUBE PRN PRN PRN Reason: Hypoglycemia Simple Syrup (Simple Syrup 15 Ml) 30 ml FEEDTUBE PRN PRN PRN Reason: Hypoglycemia Sodium Bicarbonate (Sodium Bicarbonate 325 Mg Tab) 325 mg FEEDTUBE PRN PRN PRN Reason: For Clogged Feeding Tube Sodium Chloride (Sodium Chloride 0.9% 10 Ml Flush Syringe) 10 ml IV PRN PRN PRN Reason: LINE FLUSH Last Admin: 07/17/20 22:13 Dose: 10 ml Documented by: Sodium Chloride (Sodium Chloride 0.9% 10 Ml Flush Syringe) 10 ml IV BID [facility] Last Admin: 08/13/20 09:12 Dose: 10 ml Documented by: Trazodone HCl (Trazodone 50 Mg Tab) 50 mg PO QHS [facility] Last Admin: 08/12/20 22:43 Dose: 50 mg Documented by: Zinc Sulfate (Zinc Sulfate 220 Mg Cap) 220 mg PO QDAY [facility] Last Admin: 08/13/20 09:11 Dose: 220 mg Documented by: Objective Vital Signs - 12hr 08/13/20 08/13/20 08/13/20 07:45 08:00 08:15 Temperature 98.3 F Pulse Rate 120 H 120 H 119 H Pulse Rate [ 128 H From Monitor] Respiratory 26 H 24 24 Rate Blood Pressure 134/89 158/85 158/85 O2 Sat by Pulse 90 91 91 Oximetry 08/13/20 08/13/20 08/13/20 08:27 08:30 08:45 Temperature Pulse Rate 115 H 124 H 119 H Pulse Rate [ From Monitor] Respiratory 21 22 Rate Blood Pressure 158/85 155/84 155/84 O2 Sat by Pulse 95 95 92 Oximetry 08/13/20 08/13/20 08/13/20 09:00 09:15 09:30 Temperature Pulse Rate 119 H 119 H 119 H Pulse Rate [ From Monitor] Respiratory 23 22 35 H Rate Blood Pressure 137/86 137/86 137/86 O2 Sat by Pulse 92 93 94 Oximetry 08/13/20 08/13/20 08/13/20 09:45 10:00 10:15 Temperature Pulse Rate 118 H 119 H 117 H Pulse Rate [ From Monitor] Respiratory 20 21 19 Rate Blood Pressure 137/86 137/84 137/84 O2 Sat by Pulse 94 94 95 Oximetry 08/13/20 08/13/20 08/13/20 10:30 10:45 11:00 Temperature Pulse Rate 120 H 117 H 118 H Pulse Rate [ From Monitor] Respiratory 22 19 21 Rate Blood Pressure 136/82 136/82 145/84 O2 Sat by Pulse 95 94 94 Oximetry 08/13/20 08/13/20 08/13/20 11:15 11:29 11:30 Temperature Pulse Rate 120 H 120 H 119 H Pulse Rate [ 120 H From Monitor] Respiratory 23 30 H 20 Rate Blood Pressure 145/84 139/87 O2 Sat by Pulse 95 94 95 Oximetry 08/13/20 08/13/20 08/13/20 11:45 11:58 12:00 Temperature 100.0 F H Pulse Rate 120 H 121 H 121 H Pulse Rate [ From Monitor] Respiratory 18 19 Rate Blood Pressure 139/87 139/87 143/84 O2 Sat by Pulse 95 96 95 Oximetry 08/13/20 08/13/20 08/13/20 12:15 12:30 12:45 Temperature Pulse Rate 124 H 125 H 125 H Pulse Rate [ From Monitor] Respiratory 21 18 20 Rate Blood Pressure 143/84 141/87 141/87 O2 Sat by Pulse 96 96 96 Oximetry 08/13/20 08/13/20 08/13/20 13:00 13:15 13:30 Temperature Pulse Rate 124 H 122 H 123 H Pulse Rate [ From Monitor] Respiratory 19 21 19 Rate Blood Pressure 139/84 139/84 142/85 O2 Sat by Pulse 96 96 96 Oximetry 08/13/20 08/13/20 08/13/20 13:45 14:00 14:15 Temperature Pulse Rate 125 H 124 H 125 H Pulse Rate [ From Monitor] Respiratory 19 20 17 Rate Blood Pressure 142/85 146/89 146/89 O2 Sat by Pulse 97 96 97 Oximetry 08/13/20 08/13/20 08/13/20 14:30 14:45 15:00 Temperature Pulse Rate 126 H 126 H 125 H Pulse Rate [ From Monitor] Respiratory 18 18 17 Rate Blood Pressure 147/87 147/87 141/86 O2 Sat by Pulse 96 97 96 Oximetry 08/13/20 08/13/20 08/13/20 15:15 15:30 15:45 Temperature Pulse Rate 124 H 120 H 122 H Pulse Rate [ From Monitor] Respiratory 22 21 19 Rate Blood Pressure 141/86 151/88 151/88 O2 Sat by Pulse 96 96 96 Oximetry 08/13/20 08/13/20 08/13/20 16:00 16:02 16:15 Temperature 100.1 F H Pulse Rate 124 H 125 H 125 H Pulse Rate [ 125 H From Monitor] Respiratory 20 22 Rate Blood Pressure 153/89 153/89 153/89 O2 Sat by Pulse 96 96 97 Oximetry 08/13/20 08/13/20 08/13/20 16:30 16:45 17:00 Temperature Pulse Rate 123 H 125 H 124 H Pulse Rate [ From Monitor] Respiratory 18 18 18 Rate Blood Pressure 146/86 146/86 151/86 O2 Sat by Pulse 96 97 97 Oximetry 08/13/20 08/13/20 08/13/20 17:15 17:30 17:45 Temperature Pulse Rate 124 H 119 H 121 H Pulse Rate [ From Monitor] Respiratory 18 30 H 30 H Rate Blood Pressure 146/86 130/73 130/73 O2 Sat by Pulse 96 94 97 Oximetry 08/13/20 08/13/20 08/13/20 18:00 18:15 18:30 Temperature Pulse Rate 120 H 119 H 120 H Pulse Rate [ From Monitor] Respiratory 30 H 30 H 30 H Rate Blood Pressure 137/79 137/79 142/78 O2 Sat by Pulse 98 98 98 Oximetry 08/13/20 08/13/20 08/13/20 18:45 19:00 19:15 Temperature Pulse Rate 120 H 118 H 118 H Pulse Rate [ From Monitor] Respiratory 30 H 31 H 30 H Rate Blood Pressure 142/78 134/77 134/77 O2 Sat by Pulse 97 97 97 Oximetry Constitutional: other (orally intubated on vent) Eyes: non-icteric ENT: oropharynx moist Neck: supple Ascultation: Bilateral: other (coarse BS bilaterally) Cardiovascular: regular rate and rhythm, other (tachycardia) Gastrointestinal: normoactive bowel sounds, soft, non-tender, non-distended Integumentary: normal Extremities: no cyanosis Neurologic: other (sedated) Psychiatric: other (sedated) CBC and BMP: 08/12/20 04:00 08/13/20 06:30 ABG, PT/INR, D-dimer: ABG ABG pH 7.288 (7.320-7.450) L 08/13/20 14:12 POC ABG pCO2 81.8 mmHg (32.0-48.0) H 08/13/20 14:12 POC ABG pO2 87.1 mmHg (83-108) 08/13/20 14:12 POC ABG HCO3 38.3 08/13/20 14:12 PT/INR, D-dimer PT 13.7 Sec. (12.2-14.9) 07/18/20 04:31 INR 1.06 (0.87-1.13) 07/18/20 04:31 D-Dimer 5413.39 ng/mlDDU (0-234) H 08/12/20 08:32 Abnormal lab findings: Abnormal Labs 07/17/20 07/17/20 07/17/20 17:30 17:30 22:48 WBC RBC Hgb Hct MCV MCH MCHC 35 H RDW Plt Count Lymph % (Auto) 10.5 L Lymph # (Auto) 0.7 L Seg Neutrophils % 85.3 H Lymphocytes % (Manual) Seg Neutrophils # Seg Neutrophils # Man Lymphocytes # (Manual) D-Dimer 314.21 H ABG pH POC ABG pCO2 POC ABG pO2 ABG Hemoglobin ABG Oxyhemoglobin ABG Sodium ABG Potassium ABG Chloride ABG Glucose Sodium Potassium Chloride Carbon Dioxide BUN 1 L Creatinine Glucose 154 H POC Glucose Calcium Magnesium Ferritin Alkaline Phosphatase Lactate Dehydrogenase Total Creatine Kinase CK-MB (CK-2) C-Reactive Protein Total Protein Albumin Triglycerides Arterial Blood Glucose Arterial Blood Ionized Calcium Coronavirus (PCR) SARS-CoV-2 IgG Ab 07/17/20 07/17/20 07/18/20 22:48 22:48 04:31 WBC RBC Hgb Hct MCV MCH 33 H MCHC 35 H RDW 13.1 L Plt Count Lymph % (Auto) Lymph # (Auto) Seg Neutrophils % Lymphocytes % (Manual) 5.0 L Seg Neutrophils # Seg Neutrophils # Man 8.1 H Lymphocytes # (Manual) 0.4 L D-Dimer ABG pH POC ABG pCO2 POC ABG pO2 ABG Hemoglobin ABG Oxyhemoglobin ABG Sodium ABG Potassium ABG Chloride ABG Glucose Sodium Potassium Chloride Carbon Dioxide BUN Creatinine Glucose 124 H POC Glucose Calcium Magnesium Ferritin 889.3 H Alkaline Phosphatase Lactate Dehydrogenase 832 H Total Creatine Kinase CK-MB (CK-2) C-Reactive Protein 17.70 H Total Protein Albumin Triglycerides Arterial Blood Glucose Arterial Blood Ionized Calcium Coronavirus (PCR) SARS-CoV-2 IgG Ab 07/18/20 07/18/20 07/18/20 04:31 08:50 18:48 WBC RBC Hgb Hct MCV MCH MCHC RDW Plt Count Lymph % (Auto) Lymph # (Auto) Seg Neutrophils % Lymphocytes % (Manual) Seg Neutrophils # Seg Neutrophils # Man Lymphocytes # (Manual) D-Dimer 275.27 H ABG pH POC ABG pCO2 POC ABG pO2 ABG Hemoglobin ABG Oxyhemoglobin ABG Sodium ABG Potassium ABG Chloride ABG Glucose Sodium Potassium Chloride Carbon Dioxide 31 H D BUN 23 H Creatinine Glucose 143 H POC Glucose Calcium Magnesium Ferritin Alkaline Phosphatase Lactate Dehydrogenase Total Creatine Kinase CK-MB (CK-2) C-Reactive Protein Total Protein Albumin Triglycerides Arterial Blood Glucose Arterial Blood Ionized Calcium Coronavirus (PCR) Positive A SARS-CoV-2 IgG Ab 07/18/20 07/18/20 07/20/20 18:48 18:48 08:56 WBC RBC Hgb Hct MCV MCH MCHC RDW Plt Count Lymph % (Auto) Lymph # (Auto) Seg Neutrophils % Lymphocytes % (Manual) Seg Neutrophils # Seg Neutrophils # Man Lymphocytes # (Manual) D-Dimer ABG pH POC ABG pCO2 POC ABG pO2 ABG Hemoglobin ABG Oxyhemoglobin ABG Sodium ABG Potassium ABG Chloride ABG Glucose Sodium Potassium Chloride Carbon Dioxide BUN 22 H Creatinine Glucose 219 H POC Glucose Calcium Magnesium Ferritin 1164.0 H Alkaline Phosphatase Lactate Dehydrogenase 560 H 739 H Total Creatine Kinase CK-MB (CK-2) C-Reactive Protein 18.00 H 17.50 H Total Protein Albumin 3.0 L Triglycerides Arterial Blood Glucose Arterial Blood Ionized Calcium Coronavirus (PCR) SARS-CoV-2 IgG Ab 07/20/20 07/20/20 07/21/20 08:56 08:56 05:24 WBC RBC Hgb Hct MCV MCH MCHC RDW Plt Count Lymph % (Auto) Lymph # (Auto) Seg Neutrophils % Lymphocytes % (Manual) Seg Neutrophils # Seg Neutrophils # Man Lymphocytes # (Manual) D-Dimer 9523.70 H ABG pH POC ABG pCO2 POC ABG pO2 ABG Hemoglobin ABG Oxyhemoglobin ABG Sodium ABG Potassium ABG Chloride ABG Glucose Sodium Potassium Chloride Carbon Dioxide BUN Creatinine Glucose POC Glucose Calcium Magnesium Ferritin 1581.0 H Alkaline Phosphatase Lactate Dehydrogenase Total Creatine Kinase CK-MB (CK-2) C-Reactive Protein Total Protein Albumin Triglycerides Arterial Blood Glucose Arterial Blood Ionized Calcium Coronavirus (PCR) SARS-CoV-2 IgG Ab Reactive A 07/22/20 07/24/20 07/26/20 04:31 13:26 10:07 WBC RBC Hgb Hct MCV MCH MCHC RDW Plt Count Lymph % (Auto) Lymph # (Auto) Seg Neutrophils % Lymphocytes % (Manual) Seg Neutrophils # Seg Neutrophils # Man Lymphocytes # (Manual) D-Dimer > 72779 H ABG pH POC ABG pCO2 POC ABG pO2 ABG Hemoglobin ABG Oxyhemoglobin ABG Sodium ABG Potassium ABG Chloride ABG Glucose Sodium 146 H Potassium Chloride Carbon Dioxide 32 H BUN 28 H 26 H Creatinine Glucose 144 H 116 H POC Glucose Calcium 8.3 L Magnesium Ferritin Alkaline Phosphatase Lactate Dehydrogenase Total Creatine Kinase CK-MB (CK-2) C-Reactive Protein Total Protein Albumin 3.3 L Triglycerides Arterial Blood Glucose Arterial Blood Ionized Calcium Coronavirus (PCR) SARS-CoV-2 IgG Ab 07/26/20 07/26/20 07/27/20 10:07 10:07 19:45 WBC RBC Hgb Hct MCV MCH MCHC RDW Plt Count Lymph % (Auto) Lymph # (Auto) Seg Neutrophils % Lymphocytes % (Manual) Seg Neutrophils # Seg Neutrophils # Man Lymphocytes # (Manual) D-Dimer ABG pH POC ABG pCO2 POC ABG pO2 ABG Hemoglobin ABG Oxyhemoglobin ABG Sodium ABG Potassium ABG Chloride ABG Glucose Sodium Potassium Chloride 97.4 L Carbon Dioxide 33 H BUN 27 H Creatinine Glucose 175 H POC Glucose Calcium Magnesium Ferritin 1079.0 H Alkaline Phosphatase Lactate Dehydrogenase 708 H Total Creatine Kinase CK-MB (CK-2) C-Reactive Protein 6.10 H Total Protein Albumin Triglycerides Arterial Blood Glucose Arterial Blood Ionized Calcium Coronavirus (PCR) SARS-CoV-2 IgG Ab 07/29/20 07/30/20 07/30/20 02:09 10:33 11:54 WBC RBC Hgb Hct MCV MCH MCHC RDW Plt Count Lymph % (Auto) Lymph # (Auto) Seg Neutrophils % Lymphocytes % (Manual) Seg Neutrophils # Seg Neutrophils # Man Lymphocytes # (Manual) D-Dimer ABG pH POC ABG pCO2 POC ABG pO2 ABG Hemoglobin ABG Oxyhemoglobin ABG Sodium ABG Potassium ABG Chloride ABG Glucose Sodium Potassium Chloride Carbon Dioxide BUN Creatinine Glucose POC Glucose 183 H Calcium Magnesium 3.00 H Ferritin Alkaline Phosphatase Lactate Dehydrogenase Total Creatine Kinase 174 H CK-MB (CK-2) 4.5 H C-Reactive Protein Total Protein Albumin Triglycerides Arterial Blood Glucose Arterial Blood Ionized Calcium Coronavirus (PCR) SARS-CoV-2 IgG Ab 07/30/20 07/30/20 07/31/20 17:30 23:08 11:04 WBC RBC Hgb Hct MCV MCH MCHC RDW Plt Count Lymph % (Auto) Lymph # (Auto) Seg Neutrophils % Lymphocytes % (Manual) Seg Neutrophils # Seg Neutrophils # Man Lymphocytes # (Manual) D-Dimer ABG pH POC ABG pCO2 POC ABG pO2 ABG Hemoglobin ABG Oxyhemoglobin ABG Sodium ABG Potassium ABG Chloride ABG Glucose Sodium 151 H D Potassium Chloride 109.2 H Carbon Dioxide 32 H BUN 48 H Creatinine Glucose 165 H POC Glucose 199 H 194 H Calcium Magnesium Ferritin Alkaline Phosphatase 168 H Lactate Dehydrogenase Total Creatine Kinase CK-MB (CK-2) C-Reactive Protein Total Protein Albumin 3.1 L Triglycerides Arterial Blood Glucose Arterial Blood Ionized Calcium Coronavirus (PCR) SARS-CoV-2 IgG Ab 07/31/20 07/31/20 07/31/20 11:18 11:23 17:47 WBC RBC Hgb Hct MCV MCH MCHC RDW Plt Count Lymph % (Auto) Lymph # (Auto) Seg Neutrophils % Lymphocytes % (Manual) Seg Neutrophils # Seg Neutrophils # Man Lymphocytes # (Manual) D-Dimer ABG pH POC ABG pCO2 56.6 H POC ABG pO2 73.1 L ABG Hemoglobin ABG Oxyhemoglobin 92.1 L ABG Sodium ABG Potassium ABG Chloride 108.0 H ABG Glucose 169 H Sodium Potassium Chloride Carbon Dioxide BUN Creatinine Glucose POC Glucose 156 H 169 H Calcium Magnesium Ferritin Alkaline Phosphatase Lactate Dehydrogenase Total Creatine Kinase CK-MB (CK-2) C-Reactive Protein Total Protein Albumin Triglycerides Arterial Blood Glucose 169 H Arterial Blood Ionized Calcium Coronavirus (PCR) SARS-CoV-2 IgG Ab 07/31/20 07/31/20 07/31/20 20:58 23:18 23:55 WBC 19.8 H RBC Hgb Hct MCV 95 H MCH MCHC RDW 13.0 L Plt Count Lymph % (Auto) Lymph # (Auto) Seg Neutrophils % Lymphocytes % (Manual) Seg Neutrophils # Seg Neutrophils # Man Lymphocytes # (Manual) D-Dimer ABG pH POC ABG pCO2 POC ABG pO2 ABG Hemoglobin ABG Oxyhemoglobin ABG Sodium ABG Potassium ABG Chloride ABG Glucose Sodium Potassium Chloride Carbon Dioxide BUN Creatinine Glucose POC Glucose 293 H 211 H Calcium Magnesium Ferritin Alkaline Phosphatase Lactate Dehydrogenase Total Creatine Kinase CK-MB (CK-2) C-Reactive Protein Total Protein Albumin Triglycerides Arterial Blood Glucose Arterial Blood Ionized Calcium Coronavirus (PCR) SARS-CoV-2 IgG Ab 08/01/20 08/01/20 08/01/20 03:47 08:30 12:27 WBC RBC Hgb Hct MCV MCH MCHC RDW Plt Count Lymph % (Auto) Lymph # (Auto) Seg Neutrophils % Lymphocytes % (Manual) Seg Neutrophils # Seg Neutrophils # Man Lymphocytes # (Manual) D-Dimer ABG pH POC ABG pCO2 49.8 H POC ABG pO2 123.4 H ABG Hemoglobin ABG Oxyhemoglobin ABG Sodium ABG Potassium 4.6 H ABG Chloride 111.0 H ABG Glucose 130 H Sodium 154 H Potassium Chloride 115.1 H Carbon Dioxide 32 H BUN 49 H Creatinine Glucose 492 H POC Glucose 161 H Calcium 7.2 L D Magnesium Ferritin Alkaline Phosphatase Lactate Dehydrogenase Total Creatine Kinase CK-MB (CK-2) C-Reactive Protein Total Protein Albumin Triglycerides Arterial Blood Glucose 130 H Arterial Blood Ionized Calcium 4.5 L Coronavirus (PCR) SARS-CoV-2 IgG Ab 08/01/20 08/01/20 08/02/20 16:55 23:06 05:00 WBC RBC Hgb Hct MCV MCH MCHC RDW Plt Count Lymph % (Auto) Lymph # (Auto) Seg Neutrophils % Lymphocytes % (Manual) Seg Neutrophils # Seg Neutrophils # Man Lymphocytes # (Manual) D-Dimer ABG pH POC ABG pCO2 52.5 H POC ABG pO2 69.8 L ABG Hemoglobin ABG Oxyhemoglobin ABG Sodium 147.2 H ABG Potassium ABG Chloride 110.0 H ABG Glucose 177 H Sodium Potassium Chloride Carbon Dioxide BUN Creatinine Glucose POC Glucose 195 H 162 H Calcium Magnesium Ferritin Alkaline Phosphatase Lactate Dehydrogenase Total Creatine Kinase CK-MB (CK-2) C-Reactive Protein Total Protein Albumin Triglycerides Arterial Blood Glucose 177 H Arterial Blood Ionized Calcium Coronavirus (PCR) SARS-CoV-2 IgG Ab 08/02/20 08/02/20 08/02/20 05:01 12:05 17:13 WBC RBC Hgb Hct MCV MCH MCHC RDW Plt Count Lymph % (Auto) Lymph # (Auto) Seg Neutrophils % Lymphocytes % (Manual) Seg Neutrophils # Seg Neutrophils # Man Lymphocytes # (Manual) D-Dimer ABG pH POC ABG pCO2 POC ABG pO2 ABG Hemoglobin ABG Oxyhemoglobin ABG Sodium ABG Potassium ABG Chloride ABG Glucose Sodium Potassium Chloride Carbon Dioxide BUN Creatinine Glucose POC Glucose 146 H 166 H 209 H Calcium Magnesium Ferritin Alkaline Phosphatase Lactate Dehydrogenase Total Creatine Kinase CK-MB (CK-2) C-Reactive Protein Total Protein Albumin Triglycerides Arterial Blood Glucose Arterial Blood Ionized Calcium Coronavirus (PCR) SARS-CoV-2 IgG Ab 08/02/20 08/03/20 08/03/20 23:26 04:06 04:34 WBC RBC Hgb Hct MCV MCH MCHC RDW Plt Count Lymph % (Auto) Lymph # (Auto) Seg Neutrophils % Lymphocytes % (Manual) Seg Neutrophils # Seg Neutrophils # Man Lymphocytes # (Manual) D-Dimer ABG pH POC ABG pCO2 55.6 H POC ABG pO2 66.1 L ABG Hemoglobin 11.9 L ABG Oxyhemoglobin 91.1 L ABG Sodium 145.7 H ABG Potassium 4.8 H ABG Chloride 111.0 H ABG Glucose 195 H Sodium Potassium Chloride Carbon Dioxide BUN Creatinine Glucose POC Glucose 157 H Calcium Magnesium Ferritin Alkaline Phosphatase Lactate Dehydrogenase Total Creatine Kinase CK-MB (CK-2) C-Reactive Protein Total Protein Albumin Triglycerides 207 H Arterial Blood Glucose 195 H Arterial Blood Ionized Calcium Coronavirus (PCR) SARS-CoV-2 IgG Ab 08/03/20 08/03/20 08/03/20 05:00 11:55 17:15 WBC RBC Hgb Hct MCV MCH MCHC RDW Plt Count Lymph % (Auto) Lymph # (Auto) Seg Neutrophils % Lymphocytes % (Manual) Seg Neutrophils # Seg Neutrophils # Man Lymphocytes # (Manual) D-Dimer ABG pH POC ABG pCO2 POC ABG pO2 ABG Hemoglobin ABG Oxyhemoglobin ABG Sodium ABG Potassium ABG Chloride ABG Glucose Sodium Potassium Chloride Carbon Dioxide BUN Creatinine Glucose POC Glucose 179 H 173 H 217 H Calcium Magnesium Ferritin Alkaline Phosphatase Lactate Dehydrogenase Total Creatine Kinase CK-MB (CK-2) C-Reactive Protein Total Protein Albumin Triglycerides Arterial Blood Glucose Arterial Blood Ionized Calcium Coronavirus (PCR) SARS-CoV-2 IgG Ab 08/03/20 08/04/20 08/04/20 23:01 03:59 05:30 WBC RBC Hgb Hct MCV MCH MCHC RDW Plt Count Lymph % (Auto) Lymph # (Auto) Seg Neutrophils % Lymphocytes % (Manual) Seg Neutrophils # Seg Neutrophils # Man Lymphocytes # (Manual) D-Dimer ABG pH POC ABG pCO2 54.6 H POC ABG pO2 66.2 L ABG Hemoglobin 10.8 L ABG Oxyhemoglobin 91.5 L ABG Sodium ABG Potassium ABG Chloride 110.0 H ABG Glucose 201 H Sodium Potassium Chloride Carbon Dioxide BUN Creatinine Glucose POC Glucose 222 H 137 H Calcium Magnesium Ferritin Alkaline Phosphatase Lactate Dehydrogenase Total Creatine Kinase CK-MB (CK-2) C-Reactive Protein Total Protein Albumin Triglycerides Arterial Blood Glucose 201 H Arterial Blood Ionized Calcium Coronavirus (PCR) SARS-CoV-2 IgG Ab 08/04/20 08/04/20 08/04/20 06:57 11:50 17:29 WBC RBC Hgb Hct MCV MCH MCHC RDW Plt Count Lymph % (Auto) Lymph # (Auto) Seg Neutrophils % Lymphocytes % (Manual) Seg Neutrophils # Seg Neutrophils # Man Lymphocytes # (Manual) D-Dimer ABG pH POC ABG pCO2 POC ABG pO2 ABG Hemoglobin ABG Oxyhemoglobin ABG Sodium ABG Potassium ABG Chloride ABG Glucose Sodium 151 H Potassium Chloride 111.3 H Carbon Dioxide 36 H BUN 32 H Creatinine Glucose 160 H POC Glucose 158 H 180 H Calcium 8.2 L Magnesium 2.60 H Ferritin Alkaline Phosphatase Lactate Dehydrogenase Total Creatine Kinase CK-MB (CK-2) C-Reactive Protein Total Protein Albumin Triglycerides Arterial Blood Glucose Arterial Blood Ionized Calcium Coronavirus (PCR) SARS-CoV-2 IgG Ab 08/04/20 08/05/20 08/05/20 23:01 04:49 05:11 WBC RBC Hgb Hct MCV MCH MCHC RDW Plt Count Lymph % (Auto) Lymph # (Auto) Seg Neutrophils % Lymphocytes % (Manual) Seg Neutrophils # Seg Neutrophils # Man Lymphocytes # (Manual) D-Dimer ABG pH POC ABG pCO2 56.7 H POC ABG pO2 80.6 L ABG Hemoglobin 10.9 L ABG Oxyhemoglobin ABG Sodium 145.9 H ABG Potassium ABG Chloride 109.0 H ABG Glucose 160 H Sodium Potassium Chloride Carbon Dioxide BUN Creatinine Glucose POC Glucose 160 H 134 H Calcium Magnesium Ferritin Alkaline Phosphatase Lactate Dehydrogenase Total Creatine Kinase CK-MB (CK-2) C-Reactive Protein Total Protein Albumin Triglycerides Arterial Blood Glucose 160 H Arterial Blood Ionized Calcium Coronavirus (PCR) SARS-CoV-2 IgG Ab 08/05/20 08/05/20 08/05/20 11:40 16:54 23:29 WBC RBC Hgb Hct MCV MCH MCHC RDW Plt Count Lymph % (Auto) Lymph # (Auto) Seg Neutrophils % Lymphocytes % (Manual) Seg Neutrophils # Seg Neutrophils # Man Lymphocytes # (Manual) D-Dimer ABG pH POC ABG pCO2 POC ABG pO2 ABG Hemoglobin ABG Oxyhemoglobin ABG Sodium ABG Potassium ABG Chloride ABG Glucose Sodium Potassium Chloride Carbon Dioxide BUN Creatinine Glucose POC Glucose 137 H 243 H 154 H Calcium Magnesium Ferritin Alkaline Phosphatase Lactate Dehydrogenase Total Creatine Kinase CK-MB (CK-2) C-Reactive Protein Total Protein Albumin Triglycerides Arterial Blood Glucose Arterial Blood Ionized Calcium Coronavirus (PCR) SARS-CoV-2 IgG Ab 08/06/20 08/06/20 08/06/20 05:24 06:00 08:59 WBC 14.1 H RBC Hgb 11.5 L Hct MCV 98 H MCH MCHC RDW Plt Count 107 L Lymph % (Auto) Lymph # (Auto) Seg Neutrophils % Lymphocytes % (Manual) Seg Neutrophils # Seg Neutrophils # Man Lymphocytes # (Manual) D-Dimer ABG pH POC ABG pCO2 58.9 H POC ABG pO2 53.0 L ABG Hemoglobin ABG Oxyhemoglobin 85.7 L ABG Sodium 148.4 H ABG Potassium 4.7 H ABG Chloride 109.0 H ABG Glucose 125 H Sodium Potassium Chloride Carbon Dioxide BUN Creatinine Glucose POC Glucose 122 H Calcium Magnesium Ferritin Alkaline Phosphatase Lactate Dehydrogenase Total Creatine Kinase CK-MB (CK-2) C-Reactive Protein Total Protein Albumin Triglycerides Arterial Blood Glucose 125 H Arterial Blood Ionized Calcium Coronavirus (PCR) SARS-CoV-2 IgG Ab 08/06/20 08/06/20 08/06/20 08:59 12:34 17:43 WBC RBC Hgb Hct MCV MCH MCHC RDW Plt Count Lymph % (Auto) Lymph # (Auto) Seg Neutrophils % Lymphocytes % (Manual) Seg Neutrophils # Seg Neutrophils # Man Lymphocytes # (Manual) D-Dimer ABG pH POC ABG pCO2 POC ABG pO2 ABG Hemoglobin ABG Oxyhemoglobin ABG Sodium ABG Potassium ABG Chloride ABG Glucose Sodium 151 H Potassium Chloride 110.7 H Carbon Dioxide 36 H BUN 29 H Creatinine 0.7 L Glucose 194 H POC Glucose 193 H 204 H Calcium Magnesium Ferritin Alkaline Phosphatase Lactate Dehydrogenase Total Creatine Kinase CK-MB (CK-2) C-Reactive Protein Total Protein Albumin Triglycerides Arterial Blood Glucose Arterial Blood Ionized Calcium Coronavirus (PCR) SARS-CoV-2 IgG Ab 08/06/20 08/07/20 08/07/20 23:25 04:00 04:00 WBC RBC 3.59 L Hgb 11.3 L Hct 35.0 L MCV 97 H MCH MCHC RDW Plt Count 103 L Lymph % (Auto) 11.5 L Lymph # (Auto) Seg Neutrophils % 82.9 H Lymphocytes % (Manual) Seg Neutrophils # 9.0 H Seg Neutrophils # Man Lymphocytes # (Manual) D-Dimer ABG pH POC ABG pCO2 POC ABG pO2 ABG Hemoglobin ABG Oxyhemoglobin ABG Sodium ABG Potassium ABG Chloride ABG Glucose Sodium 151 H Potassium Chloride 109.6 H Carbon Dioxide 34 H BUN 29 H Creatinine 0.5 L Glucose 134 H POC Glucose 150 H Calcium Magnesium Ferritin Alkaline Phosphatase Lactate Dehydrogenase Total Creatine Kinase CK-MB (CK-2) C-Reactive Protein Total Protein 5.4 L Albumin 2.8 L Triglycerides Arterial Blood Glucose Arterial Blood Ionized Calcium Coronavirus (PCR) SARS-CoV-2 IgG Ab 08/07/20 08/07/20 08/07/20 04:00 04:55 05:16 WBC RBC Hgb Hct MCV MCH MCHC RDW Plt Count Lymph % (Auto) Lymph # (Auto) Seg Neutrophils % Lymphocytes % (Manual) Seg Neutrophils # Seg Neutrophils # Man Lymphocytes # (Manual) D-Dimer ABG pH POC ABG pCO2 62.8 H POC ABG pO2 75.0 L ABG Hemoglobin 11.9 L ABG Oxyhemoglobin 93.2 L ABG Sodium 148.2 H ABG Potassium ABG Chloride 108.0 H ABG Glucose 150 H Sodium Potassium Chloride Carbon Dioxide BUN Creatinine Glucose POC Glucose 116 H Calcium Magnesium Ferritin Alkaline Phosphatase Lactate Dehydrogenase Total Creatine Kinase CK-MB (CK-2) C-Reactive Protein Total Protein Albumin Triglycerides 250 H Arterial Blood Glucose 150 H Arterial Blood Ionized Calcium Coronavirus (PCR) SARS-CoV-2 IgG Ab 08/07/20 08/07/20 08/07/20 12:36 17:46 23:09 WBC RBC Hgb Hct MCV MCH MCHC RDW Plt Count Lymph % (Auto) Lymph # (Auto) Seg Neutrophils % Lymphocytes % (Manual) Seg Neutrophils # Seg Neutrophils # Man Lymphocytes # (Manual) D-Dimer ABG pH POC ABG pCO2 POC ABG pO2 ABG Hemoglobin ABG Oxyhemoglobin ABG Sodium ABG Potassium ABG Chloride ABG Glucose Sodium Potassium Chloride Carbon Dioxide BUN Creatinine Glucose POC Glucose 160 H 168 H 111 H Calcium Magnesium Ferritin Alkaline Phosphatase Lactate Dehydrogenase Total Creatine Kinase CK-MB (CK-2) C-Reactive Protein Total Protein Albumin Triglycerides Arterial Blood Glucose Arterial Blood Ionized Calcium Coronavirus (PCR) SARS-CoV-2 IgG Ab 08/08/20 08/08/20 08/08/20 04:41 05:13 11:57 WBC RBC Hgb Hct MCV MCH MCHC RDW Plt Count Lymph % (Auto) Lymph # (Auto) Seg Neutrophils % Lymphocytes % (Manual) Seg Neutrophils # Seg Neutrophils # Man Lymphocytes # (Manual) D-Dimer ABG pH POC ABG pCO2 63.1 H POC ABG pO2 70.7 L ABG Hemoglobin 11.5 L ABG Oxyhemoglobin 91.0 L ABG Sodium 148.5 H ABG Potassium ABG Chloride 108.0 H ABG Glucose 102 H Sodium Potassium Chloride Carbon Dioxide BUN Creatinine Glucose POC Glucose 122 H 225 H Calcium Magnesium Ferritin Alkaline Phosphatase Lactate Dehydrogenase Total Creatine Kinase CK-MB (CK-2) C-Reactive Protein Total Protein Albumin Triglycerides Arterial Blood Glucose 102 H Arterial Blood Ionized Calcium Coronavirus (PCR) SARS-CoV-2 IgG Ab 08/08/20 08/08/20 08/09/20 17:16 23:06 05:22 WBC RBC Hgb Hct MCV MCH MCHC RDW Plt Count Lymph % (Auto) Lymph # (Auto) Seg Neutrophils % Lymphocytes % (Manual) Seg Neutrophils # Seg Neutrophils # Man Lymphocytes # (Manual) D-Dimer ABG pH POC ABG pCO2 POC ABG pO2 ABG Hemoglobin ABG Oxyhemoglobin ABG Sodium ABG Potassium ABG Chloride ABG Glucose Sodium Potassium Chloride Carbon Dioxide BUN Creatinine Glucose POC Glucose 188 H 129 H 112 H Calcium Magnesium Ferritin Alkaline Phosphatase Lactate Dehydrogenase Total Creatine Kinase CK-MB (CK-2) C-Reactive Protein Total Protein Albumin Triglycerides Arterial Blood Glucose Arterial Blood Ionized Calcium Coronavirus (PCR) SARS-CoV-2 IgG Ab 08/09/20 08/09/20 08/09/20 05:44 06:49 11:56 WBC RBC Hgb Hct MCV MCH MCHC RDW Plt Count Lymph % (Auto) Lymph # (Auto) Seg Neutrophils % Lymphocytes % (Manual) Seg Neutrophils # Seg Neutrophils # Man Lymphocytes # (Manual) D-Dimer ABG pH POC ABG pCO2 67.9 H POC ABG pO2 73.4 L ABG Hemoglobin 10.8 L ABG Oxyhemoglobin 92.7 L ABG Sodium 146.4 H ABG Potassium ABG Chloride ABG Glucose 165 H Sodium 151 H Potassium Chloride 108.8 H Carbon Dioxide 39 H BUN 32 H Creatinine 0.6 L Glucose 189 H POC Glucose 217 H Calcium 8.1 L Magnesium Ferritin Alkaline Phosphatase Lactate Dehydrogenase Total Creatine Kinase CK-MB (CK-2) C-Reactive Protein Total Protein Albumin Triglycerides Arterial Blood Glucose 165 H Arterial Blood Ionized Calcium Coronavirus (PCR) SARS-CoV-2 IgG Ab 08/09/20 08/09/20 08/10/20 17:01 23:35 05:00 WBC RBC Hgb Hct MCV MCH MCHC RDW Plt Count Lymph % (Auto) Lymph # (Auto) Seg Neutrophils % Lymphocytes % (Manual) Seg Neutrophils # Seg Neutrophils # Man Lymphocytes # (Manual) D-Dimer ABG pH POC ABG pCO2 POC ABG pO2 ABG Hemoglobin ABG Oxyhemoglobin ABG Sodium ABG Potassium ABG Chloride ABG Glucose Sodium 125 L D Potassium 3.5 L Chloride 88.7 L Carbon Dioxide 35 H BUN 25 H Creatinine 0.5 L Glucose 465 H POC Glucose 172 H 125 H Calcium 6.3 L D Magnesium Ferritin Alkaline Phosphatase Lactate Dehydrogenase Total Creatine Kinase CK-MB (CK-2) C-Reactive Protein Total Protein Albumin Triglycerides 1175 H Arterial Blood Glucose Arterial Blood Ionized Calcium Coronavirus (PCR) SARS-CoV-2 IgG Ab 08/10/20 08/10/20 08/10/20 05:09 05:24 08:00 WBC RBC Hgb Hct MCV MCH MCHC RDW Plt Count Lymph % (Auto) Lymph # (Auto) Seg Neutrophils % Lymphocytes % (Manual) Seg Neutrophils # Seg Neutrophils # Man Lymphocytes # (Manual) D-Dimer ABG pH 7.306 L POC ABG pCO2 75.1 H POC ABG pO2 76.1 L ABG Hemoglobin 10.7 L ABG Oxyhemoglobin ABG Sodium ABG Potassium ABG Chloride ABG Glucose 177 H Sodium 131 L Potassium Chloride 93.0 L Carbon Dioxide 35 H BUN 28 H Creatinine 0.6 L Glucose 433 H POC Glucose 161 H Calcium 6.6 L Magnesium Ferritin Alkaline Phosphatase Lactate Dehydrogenase Total Creatine Kinase CK-MB (CK-2) C-Reactive Protein Total Protein Albumin Triglycerides 869 H Arterial Blood Glucose 177 H Arterial Blood Ionized Calcium Coronavirus (PCR) SARS-CoV-2 IgG Ab 08/10/20 08/10/20 08/10/20 11:15 13:23 13:23 WBC RBC 3.18 L Hgb 10.1 L Hct 31.3 L MCV 98 H MCH MCHC RDW Plt Count 123 L Lymph % (Auto) Lymph # (Auto) Seg Neutrophils % Lymphocytes % (Manual) Seg Neutrophils # Seg Neutrophils # Man Lymphocytes # (Manual) D-Dimer ABG pH POC ABG pCO2 POC ABG pO2 ABG Hemoglobin ABG Oxyhemoglobin ABG Sodium ABG Potassium ABG Chloride ABG Glucose Sodium Potassium Chloride Carbon Dioxide 37 H BUN 29 H Creatinine 0.6 L Glucose 313 H POC Glucose 246 H Calcium 7.4 L Magnesium Ferritin Alkaline Phosphatase Lactate Dehydrogenase Total Creatine Kinase CK-MB (CK-2) C-Reactive Protein Total Protein Albumin Triglycerides Arterial Blood Glucose Arterial Blood Ionized Calcium Coronavirus (PCR) SARS-CoV-2 IgG Ab 08/10/20 08/10/20 08/10/20 13:23 16:43 23:20 WBC RBC Hgb Hct MCV MCH MCHC RDW Plt Count Lymph % (Auto) Lymph # (Auto) Seg Neutrophils % Lymphocytes % (Manual) Seg Neutrophils # Seg Neutrophils # Man Lymphocytes # (Manual) D-Dimer ABG pH POC ABG pCO2 POC ABG pO2 ABG Hemoglobin ABG Oxyhemoglobin ABG Sodium ABG Potassium ABG Chloride ABG Glucose Sodium Potassium Chloride Carbon Dioxide BUN Creatinine Glucose POC Glucose 238 H 111 H Calcium Magnesium Ferritin Alkaline Phosphatase Lactate Dehydrogenase Total Creatine Kinase CK-MB (CK-2) C-Reactive Protein 22.70 H Total Protein Albumin Triglycerides Arterial Blood Glucose Arterial Blood Ionized Calcium Coronavirus (PCR) SARS-CoV-2 IgG Ab 08/11/20 08/11/20 08/11/20 04:33 05:19 09:00 WBC RBC Hgb Hct MCV MCH MCHC RDW Plt Count Lymph % (Auto) Lymph # (Auto) Seg Neutrophils % Lymphocytes % (Manual) Seg Neutrophils # Seg Neutrophils # Man Lymphocytes # (Manual) D-Dimer ABG pH POC ABG pCO2 66.9 H POC ABG pO2 65.2 L ABG Hemoglobin 10.5 L ABG Oxyhemoglobin 91.7 L ABG Sodium ABG Potassium ABG Chloride ABG Glucose 124 H Sodium Potassium Chloride Carbon Dioxide 41 H* BUN 30 H Creatinine 0.5 L Glucose 204 H POC Glucose 106 H Calcium 8.1 L Magnesium Ferritin Alkaline Phosphatase Lactate Dehydrogenase Total Creatine Kinase CK-MB (CK-2) C-Reactive Protein Total Protein Albumin Triglycerides Arterial Blood Glucose 124 H Arterial Blood Ionized Calcium 4.5 L Coronavirus (PCR) SARS-CoV-2 IgG Ab 08/11/20 08/11/20 08/11/20 09:00 12:08 17:01 WBC RBC 3.01 L Hgb 9.6 L Hct 29.2 L MCV 97 H MCH MCHC RDW Plt Count Lymph % (Auto) Lymph # (Auto) Seg Neutrophils % Lymphocytes % (Manual) Seg Neutrophils # Seg Neutrophils # Man Lymphocytes # (Manual) D-Dimer ABG pH POC ABG pCO2 POC ABG pO2 ABG Hemoglobin ABG Oxyhemoglobin ABG Sodium ABG Potassium ABG Chloride ABG Glucose Sodium Potassium Chloride Carbon Dioxide BUN Creatinine Glucose POC Glucose 201 H 150 H Calcium Magnesium Ferritin Alkaline Phosphatase Lactate Dehydrogenase Total Creatine Kinase CK-MB (CK-2) C-Reactive Protein Total Protein Albumin Triglycerides Arterial Blood Glucose Arterial Blood Ionized Calcium Coronavirus (PCR) SARS-CoV-2 IgG Ab 08/11/20 08/12/20 08/12/20 23:17 03:31 04:00 WBC RBC 2.98 L Hgb 9.4 L Hct 28.7 L MCV 97 H MCH MCHC RDW Plt Count Lymph % (Auto) Lymph # (Auto) Seg Neutrophils % Lymphocytes % (Manual) Seg Neutrophils # Seg Neutrophils # Man Lymphocytes # (Manual) D-Dimer ABG pH POC ABG pCO2 65.1 H POC ABG pO2 ABG Hemoglobin 9.9 L ABG Oxyhemoglobin ABG Sodium 145.6 H ABG Potassium ABG Chloride ABG Glucose 106 H Sodium Potassium Chloride Carbon Dioxide BUN Creatinine Glucose POC Glucose 128 H Calcium Magnesium Ferritin Alkaline Phosphatase Lactate Dehydrogenase Total Creatine Kinase CK-MB (CK-2) C-Reactive Protein Total Protein Albumin Triglycerides Arterial Blood Glucose 106 H Arterial Blood Ionized Calcium Coronavirus (PCR) SARS-CoV-2 IgG Ab 08/12/20 08/12/20 08/12/20 04:00 07:14 08:32 WBC RBC Hgb Hct MCV MCH MCHC RDW Plt Count Lymph % (Auto) Lymph # (Auto) Seg Neutrophils % Lymphocytes % (Manual) Seg Neutrophils # Seg Neutrophils # Man Lymphocytes # (Manual) D-Dimer 5413.39 H ABG pH POC ABG pCO2 POC ABG pO2 ABG Hemoglobin ABG Oxyhemoglobin ABG Sodium ABG Potassium ABG Chloride ABG Glucose Sodium 149 H 149 H Potassium Chloride Carbon Dioxide 39 H 39 H BUN 31 H 33 H Creatinine 0.5 L 0.5 L Glucose 173 H POC Glucose Calcium 8.0 L 8.1 L Magnesium Ferritin Alkaline Phosphatase Lactate Dehydrogenase Total Creatine Kinase CK-MB (CK-2) C-Reactive Protein Total Protein Albumin Triglycerides Arterial Blood Glucose Arterial Blood Ionized Calcium Coronavirus (PCR) SARS-CoV-2 IgG Ab 08/12/20 08/12/20 08/12/20 08:32 08:32 12:15 WBC RBC Hgb Hct MCV MCH MCHC RDW Plt Count Lymph % (Auto) Lymph # (Auto) Seg Neutrophils % Lymphocytes % (Manual) Seg Neutrophils # Seg Neutrophils # Man Lymphocytes # (Manual) D-Dimer ABG pH POC ABG pCO2 POC ABG pO2 ABG Hemoglobin ABG Oxyhemoglobin ABG Sodium ABG Potassium ABG Chloride ABG Glucose Sodium Potassium Chloride Carbon Dioxide BUN Creatinine Glucose POC Glucose 270 H Calcium Magnesium Ferritin 1401.0 H Alkaline Phosphatase Lactate Dehydrogenase 378 H Total Creatine Kinase CK-MB (CK-2) C-Reactive Protein 19.50 H Total Protein Albumin Triglycerides Arterial Blood Glucose Arterial Blood Ionized Calcium Coronavirus (PCR) SARS-CoV-2 IgG Ab 08/12/20 08/12/20 08/13/20 17:52 23:07 05:13 WBC RBC Hgb Hct MCV MCH MCHC RDW Plt Count Lymph % (Auto) Lymph # (Auto) Seg Neutrophils % Lymphocytes % (Manual) Seg Neutrophils # Seg Neutrophils # Man Lymphocytes # (Manual) D-Dimer ABG pH POC ABG pCO2 POC ABG pO2 ABG Hemoglobin ABG Oxyhemoglobin ABG Sodium ABG Potassium ABG Chloride ABG Glucose Sodium Potassium Chloride Carbon Dioxide BUN Creatinine Glucose POC Glucose 178 H 128 H 130 H Calcium Magnesium Ferritin Alkaline Phosphatase Lactate Dehydrogenase Total Creatine Kinase CK-MB (CK-2) C-Reactive Protein Total Protein Albumin Triglycerides Arterial Blood Glucose Arterial Blood Ionized Calcium Coronavirus (PCR) SARS-CoV-2 IgG Ab 08/13/20 08/13/20 08/13/20 06:30 12:08 14:12 WBC RBC Hgb Hct MCV MCH MCHC RDW Plt Count Lymph % (Auto) Lymph # (Auto) Seg Neutrophils % Lymphocytes % (Manual) Seg Neutrophils # Seg Neutrophils # Man Lymphocytes # (Manual) D-Dimer ABG pH 7.288 L POC ABG pCO2 81.8 H POC ABG pO2 ABG Hemoglobin 10.3 L ABG Oxyhemoglobin ABG Sodium 146.7 H ABG Potassium 5.3 H ABG Chloride ABG Glucose 278 H Sodium 148 H Potassium Chloride Carbon Dioxide 41 H* BUN 31 H Creatinine 0.5 L Glucose 145 H POC Glucose 205 H Calcium 8.2 L Magnesium Ferritin Alkaline Phosphatase Lactate Dehydrogenase Total Creatine Kinase CK-MB (CK-2) C-Reactive Protein Total Protein Albumin Triglycerides 167 H Arterial Blood Glucose 278 H Arterial Blood Ionized Calcium Coronavirus (PCR) SARS-CoV-2 IgG Ab 08/13/20 17:39 WBC RBC Hgb Hct MCV MCH MCHC RDW Plt Count Lymph % (Auto) Lymph # (Auto) Seg Neutrophils % Lymphocytes % (Manual) Seg Neutrophils # Seg Neutrophils # Man Lymphocytes # (Manual) D-Dimer ABG pH POC ABG pCO2 POC ABG pO2 ABG Hemoglobin ABG Oxyhemoglobin ABG Sodium ABG Potassium ABG Chloride ABG Glucose Sodium Potassium Chloride Carbon Dioxide BUN Creatinine Glucose POC Glucose 195 H Calcium Magnesium Ferritin Alkaline Phosphatase Lactate Dehydrogenase Total Creatine Kinase CK-MB (CK-2) C-Reactive Protein Total Protein Albumin Triglycerides Arterial Blood Glucose Arterial Blood Ionized Calcium Coronavirus (PCR) SARS-CoV-2 IgG Ab Chest x-ray: report reviewed, image reviewed
[2020-08-13] MEDS: MIDAZOLAM 100 MG in SODIUM CHLORIDE 0.9% 80 ML IV SCH (20:54)
[2020-08-13] MEDS: traZODone 50 MG TAB PO SCH (21:35)
[2020-08-13] MEDS: DEXTROSE 5% IN WATER 1,000 ML IV SCH (21:37)
[2020-08-14] MEDS: fentaNYL DRIP Premix 2,000 MCG/100 ML BAG IV SCH ×4 (01:22→19:49)
[2020-08-14] MEDS: INSULIN LISPRO 100 UNIT/ML VIAL 3 mL SUB-Q SCH ×4 (01:23→17:56)
[2020-08-14] MEDS: CEFEPIME/NS 2 GM/100 ML 2 GM/100 ML BAG IV SCH ×3 (01:24→21:17)
[2020-08-14 08:47] LABS: Blood Urea Nitrogen 41 mg/dL (9-20); Calcium 7.9 mg/dL (8.4-10.2); Hemolysis Index 1
[2020-08-14 08:48] LABS: BUN/Creatinine Ratio 68
[2020-08-14 08:54] LABS: Hematocrit 26.6 % (35.5-45.6); Hemoglobin 8.5 gm/dl (11.8-15.2); Mean Corpuscular HGB Conc 32 % (32-34); Mean Corpuscular Volume 100 fl (84-94); Platelet Count 186 K/mm3 (140-440); Red Blood Count 2.67 M/mm3 (3.65-5.03); Red Cell Distribution Width 13.9 % (13.2-15.2)
--- NOTE | 2020-08-14 09:21 | Progress Note ---
Assessment and Plan Assessment and plan: 60 YO Male HD #23 with acute hypoxemic respiratory failure, bilateral pneumonia secondary to coronavirus infection, cough who is currently intubated and on ventilatory support. Patient has poor prognosis. Patient currently unable to be weaned from ventilatory support. Patient has poor prognosis. No acute decompensation overnight. Closely monitor the patient and adjust management as needed Follow CTA chest, and inflammatory markers Consults recommendations noted and appreciated Plan of care reviewed with the patient and his nurse 07/20; patient is severely hypoxemic, on high flow oxygen 40 L/100%/O2 sats 95 Elevated D-dimers, patient is severely hypoxemic, will check CTA chest to rule out PE Also consider lower extremity venous Doppler to rule out DVT 07/21: Patient remains on high flow oxygen however mild improvement from 40 L to 35 l Tolerating prone position, continue steroids remdesivir CTA chest negative for PE, lower extremity venous Doppler negative for DVT Consults recommendations noted and appreciated Poor prognosis, patient is aware 07/22/2020; patient feels slightly better remains on high flow oxygen however lower than yesterday 35 L/95% /O2 sat 94% 07/21/2020 advised the patient to rest in prone position as tolerated Home oxygen evaluation 07/23/2020; remains on high flow oxygen, continue steroids remdesivir, prone position and comfort care Patient is critically ill with very poor prognosis and prolonged hypoxemia on high flow oxygen Plan of care reviewed with the patient and his nurse 07/24/2020; patient was severely hypoxemic rapid response called oxygen settings adjusted patient is currently better, requiring high flow oxygen right from the day he was admitted, poor prognosis, discussed with patient's 07/25/2020; patient remains on high flow oxygen in mild distress, overall prognosis poor I discussed with , and family friend physician extensively yesterday Poor prognosis continue current management 07/26/2020; patient remains on high flow oxygen 40 L/100%/95% O2 sat +100% nonrebreather Patient is critically ill, poor prognosis, ID pulmonary following 07/27/2020; patient remains on high flow oxygen 40 L/100%/[address] 100% nonrebreather Very poor prognosis, patient and family aware Pulmonary recommendations noted and appreciated 07/28/2020; patient remains critically ill, remains dependent on high flow oxygen 40 L +100% nonrebreather Very poor prognosis. 07/29/2020 Remains critically ill On high flow oxygen 07/30/2020 On high flow oxygen Is critically ill 07/31/2020 On high flow oxygen Critically ill 08/01/2020 on high flow oxygen Critically ill 08/02/2020 On Vent Weaning in progress 08/03/20 On Vent Weaning in progress 08/04/20 On vent Weaning in progress 08/05/20 Did not increase PEEP yesterday. PaO2 improved on own. Will wean FiO2 down today for sats >88%. Hold on proning for now. Continue steroids. Needs better rate control. Most likely sinus tach from hypoxemia, 08/08: Patient remains on full ventilatory support, critically ill, Proninng per Supervisor [employer]. Down to 60% oxygen FIO2. PEEP Lasix 20mg IV x 1 today, Consider changing to full dose anticoagulation. Discussed with Supervisor [employer]. Check Osmolality. Monitor Plt considering Lovenox Spoke with extensively and sister. 08/10; Continue supportive care, No significant clinical change, monitor for fever, continue pronining if tolerated. Being changed to Versed due to worsening triglycerides propofol has been stopped. Will discuss with critical care physician if some additional Lasix trial will be done as well monitoring patient's renal function. I have called and left a message for the family. 08/11: Continues with persistent hypoxia and hypercapnia. Intermittent fever. No elevated leukocytosis. Will reconsult ID to assist with management of this. Continue on full dose anticoagulation while monitoring H&H. We will hold off any further Lasix due to noted elevated bicarb. We will continue to monitor 08/12: Discussed with nursing staff. Also reviewed licensed loan officer assistant per document ation. Patient remains critically ill with no change for the better or for worse. Discussed with nursing staff patient still moves around but nonpurposeful movements not following commands. Will reevaluate during sedation vacation. We will continue to monitor hypernatremia and adjust fluids to help with improvement. I have called and update family, answered all questions. We will continue pronging 08/13: Updated family, Unfortunately no improvement, Will discuss with Supervisor [employer] if Diamox should be tried. Continue monitoring and on Restraints. 08/14: Continue supportive care. Will update family tomorrow. Continue to wean oxygen as tolerated. Pulmonary input noted patient on D5W for the next 24 hours while free water has been increased no diuresis or Diamox at this time per their recommendation. Prognosis remains guarded. 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 -- Full code status Current Visit: Yes Status: Acute Plan to address problem: Patient is a full code. Advance care planning Current Visit: Yes Status: Acute Plan to address problem: Disease education conducted, patient is full code, patient has poor prognosis. Prognosis discussed. +30 minutes. The high probability of a clinically significant, sudden or life threatening deterioration of the [cardiac, pulmonary, neuro] system(s) required my full and direct attention, intervention and personal management. The aggregate critical care time was [45] minutes. This time is in addition to time spent performing reported procedures but includes the following: [x] Data Review and interpretation [x] Patient assessment and monitoring of vital signs [x] Documentation [x] Medication orders and management History Interval history: Patient seen and examined, unfortunately remains critically ill. No change in mental status but was able to decrease FiO2 this morning. Not following any commands per nurse during sedation vacation Hospitalist Physical - Physical exam Narrative exam: General appearance: Present:on full ventilatory support, sedated - EENT Eyes: Present: miosis ENT: Not following commands - Neck Neck: Present: supple - Respiratory Respiratory effort: labored still mildly increased wob Respiratory: bilateral: diminished, rhonchi - Cardiovascular Rhythm: Regular but tachycardic Heart Sounds: Present: S1 & S2 - Extremities Extremities: no ischemia Peripheral Pulses: within normal limits - Abdominal General gastrointestinal: soft, non-tender, non-distended - Integumentary Integumentary: Present: dry - Psychiatric Psychiatric: no appropriate mood/affect, no intact judgment & insight, no memory intact - Neurologic Neurologic: CNII-XII intact, no gait normal - Constitutional Vitals: Temp Pulse Resp BP Pulse Ox 100.0 F H 98 H 30 H 119/68 94 08/14/20 03:26 08/14/20 08:45 08/14/20 08:45 08/14/20 08:45 08/14/20 08:45 General appearance: Present: mild distress, well-nourished, other (Hypoxemic on high flow oxygen) HEART Score - HEART Score Troponin: Troponin T 0.018 ng/mL (0.00-0.029) 07/30/20 10:33 Results - Labs CBC & Chem 7: 08/14/20 08:50 08/14/20 05:00 Labs: Laboratory Last Values WBC 9.3 K/mm3 (4.5-11.0) 08/14/20 08:50 RBC 2.67 M/mm3 (3.65-5.03) L 08/14/20 08:50 Hgb 8.5 gm/dl (11.8-15.2) L 08/14/20 08:50 Hct 26.6 % (35.5-45.6) L 08/14/20 08:50 MCV 100 fl (84-94) H 08/14/20 08:50 MCH 32 pg (28-32) 08/14/20 08:50 MCHC 32 % (32-34) 08/14/20 08:50 RDW 13.9 % (13.2-15.2) 08/14/20 08:50 Plt Count 186 K/mm3 (140-440) 08/14/20 08:50 Lymph % (Auto) 11.5 % (13.4-35.0) L 08/07/20 04:00 [place] % (Auto) 3.2 % (0.0-7.3) 08/07/20 04:00 Eos % (Auto) 2.1 % (0.0-4.3) 08/07/20 04:00 Baso % (Auto) 0.3 % (0.0-1.8) 08/07/20 04:00 Lymph # (Auto) 1.3 K/mm3 (1.2-5.4) 08/07/20 04:00 [place] # (Auto) 0.3 K/mm3 (0.0-0.8) 08/07/20 04:00 Eos # (Auto) 0.2 K/mm3 (0.0-0.4) 08/07/20 04:00 Baso # (Auto) 0.0 K/mm3 (0.0-0.1) 08/07/20 04:00 Add Manual Diff Complete 07/18/20 04:31 Total Counted 100 07/18/20 04:31 Seg Neutrophils % 82.9 % (40.0-70.0) H 08/07/20 04:00 Lymphocytes % (Manual) 5.0 % (13.4-35.0) L 07/18/20 04:31 Monocytes % (Manual) 3.0 % (0.0-7.3) 07/18/20 04:31 Nucleated RBC % Not Reportable 07/18/20 04:31 Seg Neutrophils # 9.0 K/mm3 (1.8-7.7) H 08/07/20 04:00 Seg Neutrophils # Man 8.1 K/mm3 (1.8-7.7) H 07/18/20 04:31 Band Neutrophils # 0.0 K/mm3 07/18/20 04:31 Lymphocytes # (Manual) 0.4 K/mm3 (1.2-5.4) L 07/18/20 04:31 Abs React Lymphs (Man) 0.0 K/mm3 07/18/20 04:31 Monocytes # (Manual) 0.3 K/mm3 (0.0-0.8) 07/18/20 04:31 Eosinophils # (Manual) 0.0 K/mm3 (0.0-0.4) 07/18/20 04:31 Basophils # (Manual) 0.0 K/mm3 (0.0-0.1) 07/18/20 04:31 Metamyelocytes # 0.0 K/mm3 07/18/20 04:31 Myelocytes # 0.0 K/mm3 07/18/20 04:31 Promyelocytes # 0.0 K/mm3 07/18/20 04:31 Blast Cells # 0.0 K/mm3 07/18/20 04:31 WBC Morphology Not Reportable 07/18/20 04:31 Hypersegmented Neuts Not Reportable 07/18/20 04:31 Hyposegmented Neuts Not Reportable 07/18/20 04:31 Hypogranular Neuts Not Reportable 07/18/20 04:31 Smudge Cells Not Reportable 07/18/20 04:31 Toxic Granulation Not Reportable 07/18/20 04:31 Toxic Vacuolation Not Reportable 07/18/20 04:31 Dohle Bodies Not Reportable 07/18/20 04:31 Pelger-Huet Anomaly Not Reportable 07/18/20 04:31 Cheri Rods Not Reportable 07/18/20 04:31 Platelet Estimate Consistent w auto 07/18/20 04:31 Clumped Platelets Not Reportable 07/18/20 04:31 Plt Clumps, EDTA Not Reportable 07/18/20 04:31 Large Platelets Not Reportable 07/18/20 04:31 Giant Platelets Not Reportable 07/18/20 04:31 Platelet Satelliting Not Reportable 07/18/20 04:31 Plt Morphology Comment Not Reportable 07/18/20 04:31 RBC Morphology Not Reportable 07/18/20 04:31 Dimorphic RBCs Not Reportable 07/18/20 04:31 Polychromasia Not Reportable 07/18/20 04:31 Hypochromasia Not Reportable 07/18/20 04:31 Poikilocytosis Not Reportable 07/18/20 04:31 Anisocytosis 1+ 07/18/20 04:31 Microcytosis Not Reportable 07/18/20 04:31 Macrocytosis Not Reportable 07/18/20 04:31 Spherocytes Not Reportable 07/18/20 04:31 Pappenheimer Bodies Not Reportable 07/18/20 04:31 Sickle Cells Not Reportable 07/18/20 04:31 Target Cells Not Reportable 07/18/20 04:31 Tear Drop Cells Not Reportable 07/18/20 04:31 Ovalocytes Not Reportable 07/18/20 04:31 Helmet Cells Not Reportable 07/18/20 04:31 [place] Bodies Not Reportable 07/18/20 04:31 [place] Rings Not Reportable 07/18/20 04:31 [place] Cells Not Reportable 07/18/20 04:31 Bite Cells Not Reportable 07/18/20 04:31 Crenated Cell Not Reportable 07/18/20 04:31 Elliptocytes Not Reportable 07/18/20 04:31 Acanthocytes (Spur) Not Reportable 07/18/20 04:31 Rouleaux Not Reportable 07/18/20 04:31 Hemoglobin C Crystals Not Reportable 07/18/20 04:31 Schistocytes Not Reportable 07/18/20 04:31 Malaria parasites Not Reportable 07/18/20 04:31 ESR > 140.0 mm/Hr (0-20) 08/10/20 13:23 Wilfredo Bodies Not Reportable 07/18/20 04:31 Hem Pathologist Commnt No 07/18/20 04:31 PT 13.7 Sec. (12.2-14.9) 07/18/20 04:31 INR 1.06 (0.87-1.13) 07/18/20 04:31 D-Dimer 5413.39 ng/mlDDU (0-234) H 08/12/20 08:32 ABG pH 7.318 (7.320-7.450) L 08/14/20 04:00 POC ABG pCO2 77.2 mmHg (32.0-48.0) H 08/14/20 04:00 POC ABG pO2 82.4 mmHg (83-108) L 08/14/20 04:00 POC ABG HCO3 38.7 08/14/20 04:00 POC ABG Base Excess 10.4 08/14/20 04:00 ABG Hemoglobin 10.2 (12.0-17.5) L 08/14/20 04:00 ABG Oxyhemoglobin 94.4 (94-98) 08/13/20 14:12 ABG Methemoglobin 0.3 (0.0-1.5) 08/13/20 14:12 ABG Sodium 147.2 mmol/L (136.0-145.0) H 08/14/20 04:00 ABG Potassium 4.6 mmol/L (3.40-4.50) H 08/14/20 04:00 ABG Chloride 106.0 mmol/L (98-107) 08/14/20 04:00 ABG Glucose 212 mg/dL (65-95) H 08/14/20 04:00 Carboxyhemoglobin 1.2 (0.5-1.5) 08/13/20 14:12 FiO2 60.0 08/14/20 04:00 Sodium 151 mmol/L (137-145) H 08/14/20 05:00 Potassium 4.8 mmol/L (3.6-5.0) 08/14/20 05:00 Chloride 105.4 mmol/L (98-107) 08/14/20 05:00 Carbon Dioxide 43 mmol/L (22-30) H* 08/14/20 05:00 Anion Gap 7 mmol/L 08/14/20 05:00 BUN 41 mg/dL (9-20) H 08/14/20 05:00 Creatinine 0.6 mg/dL (0.8-1.3) L 08/14/20 05:00 Estimated GFR > 60 ml/min 08/14/20 05:00 BUN/Creatinine Ratio 68 % 08/14/20 05:00 Glucose 195 mg/dL (75-100) H 08/14/20 05:00 POC Glucose 183 mg/dL (70-105) H 08/14/20 05:13 Osmolality 332 Mosm/kg 08/08/20 19:14 Lactic Acid 1.30 mmol/L (0.7-2.0) 08/10/20 13:23 Calcium 7.9 mg/dL (8.4-10.2) L 08/14/20 05:00 Phosphorus 2.60 mg/dL (2.5-4.5) 08/08/20 12:40 Magnesium 2.20 mg/dL (1.7-2.3) 08/08/20 12:40 Ferritin 1401.0 ng/mL (30.0-300.0) H 08/12/20 08:32 Total Bilirubin 0.40 mg/dL (0.1-1.2) 08/07/20 04:00 Direct Bilirubin < 0.2 mg/dL (0-0.2) 07/22/20 04:31 Indirect Bilirubin 0.0 mg/dL 07/22/20 04:31 AST 21 units/L (5-40) 08/07/20 04:00 ALT 44 units/L (7-56) 08/07/20 04:00 Alkaline Phosphatase 99 units/L (35-129) 08/07/20 04:00 Lactate Dehydrogenase 378 units/L (91-180) H 08/12/20 08:32 Total Creatine Kinase 174 units/L (55-170) H 07/30/20 10:33 CK-MB (CK-2) 4.5 ng/mL (0.0-4.0) H 07/30/20 10:33 CK-MB (CK-2) Rel Index 2.5 (0-4) 07/30/20 10:33 Troponin T 0.018 ng/mL (0.00-0.029) 07/30/20 10:33 C-Reactive Protein 19.50 mg/dL (0.00-1.30) H 08/12/20 08:32 NT-Pro-B Natriuret Pep 290.3 pg/mL (0-900) 07/18/20 16:33 Total Protein 5.4 g/dL (6.3-8.2) L 08/07/20 04:00 Albumin 2.8 g/dL (3.9-5) L 08/07/20 04:00 Albumin/Globulin Ratio 1.1 % 08/07/20 04:00 Triglycerides 167 mg/dL (2-149) H 08/13/20 06:30 Procalcitonin 0.57 ng/mL (<0.15) 08/12/20 08:32 Arterial Blood Glucose 212 mg/dL (65-95) H 08/14/20 04:00 Arterial Blood Ionized Calcium 4.7 mg/dL (4.6-5.3) 08/14/20 04:00 Urine Color Yellow (Yellow) 08/12/20 10:05 Urine Turbidity Clear (Clear) 08/12/20 10:05 Urine pH 6.0 (5.0-7.0) 08/12/20 10:05 Ur Specific [place] 1.023 (1.003-1.030) 08/12/20 10:05 Urine Protein 30 mg/dl mg/dL (Negative) 08/12/20 10:05 Urine Glucose (UA) Neg mg/dL (Negative) 08/12/20 10:05 Urine Ketones Neg mg/dL (Negative) 08/12/20 10:05 Urine Blood Neg (Negative) 08/12/20 10:05 Urine Nitrite Neg (Negative) 08/12/20 10:05 Urine Bilirubin Neg (Negative) 08/12/20 10:05 Urine Urobilinogen 4.0 mg/dL (<2.0) 08/12/20 10:05 Ur Leukocyte Esterase Neg (Negative) 08/12/20 10:05 Urine WBC (Auto) 5.0 /HPF (0.0-6.0) 08/12/20 10:05 Urine RBC (Auto) 13.0 /HPF (0.0-6.0) 08/12/20 10:05 U Epithel Cells (Auto) < 1.0 /HPF (0-13.0) 08/12/20 10:05 Hyaline Casts 1 /LPF 08/02/20 11:30 Granular Casts 1 /LPF 08/02/20 11:30 Urine Mucus Few /HPF 08/12/20 10:05 Nasal Screen MRSA (PCR) Negative (Negative) 08/12/20 10:05 Coronavirus (PCR) Positive (Negative) A 07/18/20 08:50 SARS-CoV-2 IgG Ab Reactive (NonReactive) A 07/21/20 05:24 Microbiology: Microbiology 08/10/20 13:23 Peripheral/Venous Blood Culture - Preliminary NO GROWTH AFTER 72 HOURS 08/10/20 13:23 Peripheral/Venous Blood Culture - Preliminary NO GROWTH AFTER 72 HOURS 08/12/20 08:24 Tracheal Aspirate Sputum Culture - Preliminary 08/12/20 10:05 Urine,Catheterized - Indwelling Catheter Urine Culture - Preliminary [place]/IV: Voiding Method Indwelling Catheter IV Catheter Type [Left Upper PICC Line arm] IV Catheter Type [Left Hand] INT / Saline Lock IV Catheter Type [Left Wrist] INT / Saline Lock IV Catheter Type [Left INT / Saline Lock Antecubital] IV Catheter Type [Right Distal INT / Saline Lock Port Hand] Active Medications - Current Medications Current Medications: Generic Name Dose Route Start Last Admin Trade Name Freq PRN Reason Stop Dose Admin Acetaminophen 650 mg 07/17/20 22:21 08/06/20 13:14 Acetaminophen 325 Mg Tab PO 650 mg Q4H PRN Administration Pain MILD(1-3)/Fever >100.5/AWAD Albuterol 2.5 mg 07/18/20 16:14 07/18/20 19:45 Albuterol 2.5 Mg/3 Ml Nebu IH 2.5 mg Q4HRT PRN Administration Shortness Of Breath Lipase/Protease/Amylase 1 each 07/31/20 12:23 Lipase 10,500/Protease 25,000/Amylase 43,750 (Units) Dr Cap FEEDTUBE PRN PRN For Clogged Feeding Tube Ascorbic Acid 1,000 mg 08/08/20 22:00 08/13/20 21:34 Ascorbic Acid 500 Mg Tab PO 1,000 mg BID SHERON Administration Cholecalciferol 5,000 unit 08/08/20 19:00 08/13/20 09:10 Cholecalciferol (Vit D3) 5,000 Unit Tab PO 5,000 unit DAILY SHERON Administration Dexamethasone 6 mg 07/31/20 11:00 08/13/20 09:11 Dexamethasone 4 Mg/Ml Vial IV 08/15/20 10:59 6 mg Q24HR SHERON Administration Dextrose 50 ml 08/06/20 13:14 Dextrose 50% In Water (25gm) 50 Ml Syringe IV Q30MIN PRN Hypoglycemia Protocol Enoxaparin Sodium 90 mg 08/08/20 22:00 08/13/20 21:33 Enoxaparin 100 Mg/1 Ml Inj 1 mg/kg (90 mg) 90 mg SUB-Q Administration Q12HR SHERON Protocol Famotidine 20 mg 08/01/20 10:00 08/13/20 21:34 Famotidine 20 Mg Tab PO 20 mg BID SHERON Administration Hydrophilic Ointment 1 applic 07/31/20 11:00 Lip Therapy Vaseline TP Q2H PRN Dry Lips Norepinephrine 4 mg in 250 mls @ 7.5 mls/hr 07/31/20 09:00 08/01/20 02:37 Levophed Drip 4 Mg/Ns 250 Ml IV 0 mcg/min TITR SHERON 0 mls/hr Titration Protocol 2 MCG/MIN Fentanyl Citrate 2,000 mcg in 100 mls @ 4.43 mls/hr 07/31/20 11:00 08/14/20 01:22 Fentanyl Drip Premix IV 4 mcg/kg/hr TITR SHERON 17.72 mls/hr Administration Protocol 1 MCG/KG/HR Midazolam HCl 100 mg/ Sodium 100 mls @ 2 mls/hr 08/10/20 11:00 08/13/20 20:54 Chloride IV 5 mg/hr TITR SHERON 5 mls/hr Administration Protocol 2 MG/HR Cefepime HCl 2 gm in 100 mls @ 200 mls/hr 08/12/20 10:00 08/14/20 01:24 Cefepime/Ns 2 Gm/100 Ml IV 200 mls/hr Q12HR SHERON Administration Protocol Dextrose 1,000 mls @ 50 mls/hr 08/13/20 20:00 08/13/20 21:37 D5w IV 50 mls/hr DIRECT SHERON Administration Insulin Human Lispro 0 unit 08/07/20 00:00 08/14/20 07:17 Insulin Lispro 100 Unit/Ml Vial 3 Ml SUB-Q 2 unit Q6HR SHERON Administration Protocol Lorazepam 2 mg 08/08/20 11:36 08/11/20 13:45 Lorazepam 2 Mg/Ml Vial IV 2 mg Q4H PRN Administration Agitation Magnesium Hydroxide 30 ml 07/17/20 22:21 08/05/20 11:11 Magnesium Hydroxide (Mom) Oral Liqd Udc PO 30 ml Q4H PRN Administration Constipation Multi-Ingred Cream/Lotion/Oil/Oint 1 applic 07/31/20 10:55 Mineral Oil/Petrolatum, White Ophth Oint 3.5 Gm OU Q4H PRN Dry Eye(s) Ondansetron HCl 4 mg 07/17/20 22:21 07/20/20 02:21 Ondansetron 4 Mg/2 Ml Inj IV 4 mg Q8H PRN Administration Nausea And Vomiting Senna/Docusate Sodium 2 tab 08/03/20 11:00 08/13/20 21:34 Sennosides/Docusate Sodium 8.6/50 Mg Tab PO 2 tab BID SHERON Administration Simple Syrup 15 ml 07/31/20 12:23 Simple Syrup 15 Ml FEEDTUBE PRN PRN Hypoglycemia Simple Syrup 30 ml 07/31/20 12:23 Simple Syrup 15 Ml FEEDTUBE PRN PRN Hypoglycemia Sodium Bicarbonate 325 mg 07/31/20 12:23 Sodium Bicarbonate 325 Mg Tab FEEDTUBE PRN PRN For Clogged Feeding Tube Sodium Chloride 10 ml 07/17/20 22:01 07/17/20 22:13 Sodium Chloride 0.9% 10 Ml Flush Syringe IV 10 ml PRN PRN Administration LINE FLUSH Sodium Chloride 10 ml 07/18/20 10:00 08/13/20 21:35 Sodium Chloride 0.9% 10 Ml Flush Syringe IV 10 ml BID SHERON Administration Trazodone HCl 50 mg 07/30/20 22:00 08/13/20 21:35 Trazodone 50 Mg Tab PO 50 mg QHS SHERON Administration Zinc Sulfate 220 mg 08/08/20 19:00 08/13/20 09:11 Zinc Sulfate 220 Mg Cap PO 220 mg QDAY SHERON Administration Nutrition/Malnutrition Assess - Dietary Evaluation Nutrition/Malnutrition Findings: Nutrition Notes Start: 07/23/20 13:19 Freq: Status: Active Protocol: Document 08/12/20 11:28 CW (Rec: 08/12/20 12:16 CW [id number]) Co-Sign 08/12/20 11:28 MK Nutrition Notes Need for Assessment generated from: MD Order Initial or Follow up Reassessment Current Diagnosis Respiratory Failure Other Pertinent Diagnosis COVID-19 (+), pneu, prerenal azotemia Current Diet Vital AF 1.2 at 70 mL/hr Labs/Tests Na 149 BUN 33 Cr 0.5 BG 173 Pertinent Medications Decadron Height 5 ft 11 in Weight 89.4 kg [place] Body Weight (kg) 78.18 BMI 27.4 Weight change and time frame Wt change noted, pt oliguric Weight Status Overweight Subjective/Other Information FU for Na, water flushes, prone status, and TF tolerance . Per MD consult for TF management, discussed with RN about total fluid volume given and needed flushes for hypernatremia during proning. Observed pt supine with 120ml/ hr TF running. Pt tolerating TF. Percent of energy/protein needs met: 96%/100% Burn Absent Trauma Absent GI Symptoms None Difficulty In Swallowing Current % PO Negligible Minimum of two criteria Yes Energy Intake (severe) < or equal to 50% Estimated Energy Requirement > or equal to 5 days Fluid Accumulation Mild (non-severe) Reduced Field Mechanical Meter Tester Strength Measurably Reduced (severe) #2 Nutrition Diagnosis Malnutrition Diagnosis Progress(for reassessment Continues documentation) #1 Nutrition Diagnosis Inadequate oral intake Diagnosis Progress(for reassessment Continues documentation) Is patient on ventilator? Yes Is Patient Ambulatory and/or Out of Bed No REE-([place]-St. Jeor-confined to bed) 7579.086 Calculation Used for Recommendations [place]-St Jeor Additional Notes Pro needs 1.2-2g/k-178g/ day Fluid needs 1ml/kcal Nutrition Intervention Change Diet Order: Continue TF Nutrition Support: Vital AF 1.2 at 70ml/hr with 300ml water flush q4h until hypernatremia resolved; then 115ml q4h. When pronin hr proned: Vital AF 1.2 at 20 ml/hr, flush 100 ml q4h for hypernatremia, or per MD; then 50 ml q4h once resolved. 12 hr supine: Vital AF 1.2 at 120 ml/hr, flush 350 ml q4h for hypernatremia, or per MD; then 180 q4h once resolved. Kcal 2,016 Protein (gm) 126 Fluid (mL) 1,362 Goal #1 Continued TF tolerance Goal #2 Continue to meet at least 75% of estimated energy and protein needs via TF. Anticipated Discharge Needs: Unable to determine at this time Follow-Up By: 08/16/20 Additional Comments FU for TF tolerance, prone status, hypernatremia
[2020-08-14] MEDS: dexAMETHasone 4 MG/ML VIAL IV SCH (10:45)
[2020-08-14] MEDS: ENOXAPARIN 100 MG/1 ML INJ SUB-Q SCH ×2 (10:46→21:18)
[2020-08-14] MEDS: CHOLECALCIFEROL (VIT D3) 5,000 UNIT TAB PO SCH (10:46)
[2020-08-14] MEDS: ASCORBIC ACID 500 MG TAB PO SCH ×2 (10:47→21:18)
[2020-08-14] MEDS: FAMOTIDINE 20 MG TAB PO SCH ×2 (10:47→21:17)
[2020-08-14] MEDS: ZINC SULFATE 220 MG CAP PO SCH (10:47)
[2020-08-14] MEDS: SENNOSIDES/DOCUSATE SODIUM 8.6/50 MG TAB PO SCH ×2 (10:48→21:17)
[2020-08-14] MEDS: MIDAZOLAM 100 MG in SODIUM CHLORIDE 0.9% 80 ML IV SCH (14:03)
[2020-08-14] MEDS: DEXTROSE 5% IN WATER 1,000 ML IV SCH (17:10)
--- NOTE | 2020-08-14 19:06 | Progress Note ---
Assessment and Plan Imp: 1. Covid-19 2. Viral pneumonia 3. ARDS 4. Acute respiratory failure, hypoxia 5. Hypernatremia 6. Contraction alkalosis versus compensation for chronic respiratory acidosis Rec: 1. Wean FiO2 to keep sats 88% or >; FiO2 down to 50%; consider weaning PEEP soon 2. Hold proning if possible due to improved oxygenation and facial skin jessie kdown (can do prn if worsening hypoxia ensues) 3. D5W at 75mL/hour & recheck BMP in AM; increased free water to 200mL r4poipl; hold diuresis; hold off on Diamox for now 4. Decadron 5. TFs, supportive care 6. Guarded to poor prognosis CCt 31 minutes Subjective Date of service: 08/14/20 Principal diagnosis: Acute respiratory failure with hypoxia, Covid pneumonia Interval history: No events. Heavily sedated on Versed/Fentanyl, on ventilator. Cannot give history. On 50% FiO2 and PEEP of 16. Active Medications Acetaminophen (Acetaminophen 325 Mg Tab) 650 mg PO Q4H PRN PRN Reason: Pain MILD(1-3)/Fever >100.5/AWAD Last Admin: 08/06/20 13:14 Dose: 650 mg Documented by: Albuterol (Albuterol 2.5 Mg/3 Ml Nebu) 2.5 mg IH Q4HRT PRN PRN Reason: Shortness Of Breath Last Admin: 07/18/20 19:45 Dose: 2.5 mg Documented by: Lipase/Protease/Amylase (Lipase 10,500/Protease 25,000/Amylase 43,750 (Units) Dr Olson) 1 each FEEDTUBE PRN PRN PRN Reason: For Clogged Feeding Tube Ascorbic Acid (Ascorbic Acid 500 Mg Tab) 1,000 mg PO BID [facility] Last Admin: 08/14/20 10:47 Dose: 1,000 mg Documented by: Cholecalciferol (Cholecalciferol (Vit D3) 5,000 Unit Tab) 5,000 unit PO DAILY [facility] Last Admin: 08/14/20 10:46 Dose: 5,000 unit Documented by: Dexamethasone (Dexamethasone 4 Mg/Ml Vial) 6 mg IV Q24HR [facility] Stop: 08/15/20 10:59 Last Admin: 08/14/20 10:45 Dose: 6 mg Documented by: Dextrose (Dextrose 50% In Water (25gm) 50 Ml Syringe) 50 ml IV Q30MIN PRN; Protocol PRN Reason: Hypoglycemia Enoxaparin Sodium (Enoxaparin 100 Mg/1 Ml Inj) 90 mg 1 mg/kg (90 mg) SUB-Q Q12HR [facility]; Protocol Last Admin: 08/14/20 10:46 Dose: 90 mg Documented by: Famotidine (Famotidine 20 Mg Tab) 20 mg PO BID [facility] Last Admin: 08/14/20 10:47 Dose: 20 mg Documented by: Hydrophilic Ointment (Lip Therapy Vaseline) 1 applic TP Q2H PRN PRN Reason: Dry Lips Norepinephrine (Levophed Drip 4 Mg/Ns 250 Ml) 4 mg in 250 mls @ 7.5 mls/hr IV TITR [facility]; Protocol Last Titration: 08/01/20 02:37 Dose: 0 mcg/min, 0 mls/hr Documented by: Fentanyl Citrate (Fentanyl Drip Premix) 2,000 mcg in 100 mls @ 4.43 mls/hr IV TITR [facility]; Protocol Last Admin: 08/14/20 14:02 Dose: 4 mcg/kg/hr, 17.72 mls/hr Documented by: Midazolam HCl 100 mg/ Sodium (Chloride) 100 mls @ 2 mls/hr IV TITR [facility]ON; Protocol Last Admin: 08/14/20 14:03 Dose: 5 mg/hr, 5 mls/hr Documented by: Cefepime HCl (Cefepime/Ns 2 Gm/100 Ml) 2 gm in 100 mls @ 200 mls/hr IV Q12HR [facility]; Protocol Last Admin: 08/14/20 10:46 Dose: 200 mls/hr Documented by: Dextrose (D5w) 1,000 mls @ 75 mls/hr IV DIRECT [facility] Last Admin: 08/14/20 17:10 Dose: 50 mls/hr Documented by: Insulin Human Lispro (Insulin Lispro 100 Unit/Ml Vial 3 Ml) 0 unit SUB-Q Q6HR [facility]; Protocol Last Admin: 08/14/20 17:56 Dose: 3 unit Documented by: Lorazepam (Lorazepam 2 Mg/Ml Vial) 2 mg IV Q4H PRN PRN Reason: Agitation Last Admin: 08/11/20 13:45 Dose: 2 mg Documented by: Magnesium Hydroxide (Magnesium Hydroxide (Mom) Oral Liqd Udc) 30 ml PO Q4H PRN PRN Reason: Constipation Last Admin: 08/05/20 11:11 Dose: 30 ml Documented by: Multi-Ingred Cream/Lotion/Oil/Oint (Mineral Oil/Petrolatum, White Ophth Oint 3.5 Gm) 1 applic OU Q4H PRN PRN Reason: Dry Eye(s) Ondansetron HCl (Ondansetron 4 Mg/2 Ml Inj) 4 mg IV Q8H PRN PRN Reason: Nausea And Vomiting Last Admin: 07/20/20 02:21 Dose: 4 mg Documented by: Senna/Docusate Sodium (Sennosides/Docusate Sodium 8.6/50 Mg Tab) 2 tab PO BID [facility] Last Admin: 08/14/20 10:48 Dose: 2 tab Documented by: Simple Syrup (Simple Syrup 15 Ml) 15 ml FEEDTUBE PRN PRN PRN Reason: Hypoglycemia Simple Syrup (Simple Syrup 15 Ml) 30 ml FEEDTUBE PRN PRN PRN Reason: Hypoglycemia Sodium Bicarbonate (Sodium Bicarbonate 325 Mg Tab) 325 mg FEEDTUBE PRN PRN PRN Reason: For Clogged Feeding Tube Sodium Chloride (Sodium Chloride 0.9% 10 Ml Flush Syringe) 10 ml IV PRN PRN PRN Reason: LINE FLUSH Last Admin: 07/17/20 22:13 Dose: 10 ml Documented by: Sodium Chloride (Sodium Chloride 0.9% 10 Ml Flush Syringe) 10 ml IV BID [facility] Last Admin: 08/14/20 10:48 Dose: 10 ml Documented by: Trazodone HCl (Trazodone 50 Mg Tab) 50 mg PO QHS [facility] Last Admin: 08/13/20 21:35 Dose: 50 mg Documented by: Zinc Sulfate (Zinc Sulfate 220 Mg Cap) 220 mg PO QDAY [facility] Last Admin: 08/14/20 10:47 Dose: 220 mg Documented by: Objective Vital Signs - 12hr 08/14/20 08/14/20 08/14/20 07:15 07:30 07:45 Temperature Pulse Rate 102 H 99 H 116 H Respiratory 30 H 30 H 30 H Rate Blood Pressure 117/67 130/71 130/71 O2 Sat by Pulse 95 94 95 Oximetry 08/14/20 08/14/20 08/14/20 08:00 08:15 08:30 Temperature 99 F Pulse Rate 98 H 98 H 98 H Respiratory 30 H 30 H 30 H Rate Blood Pressure 119/68 119/68 126/71 O2 Sat by Pulse 94 94 95 Oximetry 08/14/20 08/14/20 08/14/20 08:45 09:00 09:15 Temperature Pulse Rate 98 H 96 H 93 H Respiratory 30 H 30 H 30 H Rate Blood Pressure 119/68 129/73 126/71 O2 Sat by Pulse 94 93 94 Oximetry 08/14/20 08/14/20 08/14/20 09:30 09:45 10:00 Temperature Pulse Rate 92 H 94 H 95 H Respiratory 30 H 30 H 30 H Rate Blood Pressure 124/73 124/73 121/71 O2 Sat by Pulse 94 94 94 Oximetry 08/14/20 08/14/20 08/14/20 10:15 10:30 10:45 Temperature Pulse Rate 94 H 96 H 93 H Respiratory 30 H 30 H 30 H Rate Blood Pressure 121/71 126/70 126/70 O2 Sat by Pulse 94 94 94 Oximetry 08/14/20 08/14/20 08/14/20 11:00 11:15 11:30 Temperature Pulse Rate 92 H 92 H 93 H Respiratory 30 H 30 H 30 H Rate Blood Pressure 115/71 115/71 116/71 O2 Sat by Pulse 95 95 95 Oximetry 08/14/20 08/14/20 08/14/20 11:45 11:46 12:00 Temperature 99.1 F Pulse Rate 92 H 92 H 91 H Respiratory 30 H 30 H Rate Blood Pressure 116/71 116/71 119/73 O2 Sat by Pulse 94 94 94 Oximetry 08/14/20 08/14/20 08/14/20 12:10 12:15 12:30 Temperature Pulse Rate 90 89 Respiratory 30 H 24 30 H Rate Blood Pressure 119/73 122/70 O2 Sat by Pulse 93 92 Oximetry 08/14/20 08/14/20 08/14/20 12:45 13:00 13:15 Temperature Pulse Rate 87 90 91 H Respiratory 30 H 30 H 30 H Rate Blood Pressure 122/70 120/77 120/77 O2 Sat by Pulse 92 92 91 Oximetry 08/14/20 08/14/20 08/14/20 13:30 13:45 14:00 Temperature Pulse Rate 87 88 89 Respiratory 31 H 30 H 18 Rate Blood Pressure 126/69 126/69 128/77 O2 Sat by Pulse 92 91 86 Oximetry 08/14/20 08/14/20 08/14/20 14:15 14:30 14:45 Temperature Pulse Rate 89 87 91 H Respiratory 30 H 30 H 30 H Rate Blood Pressure 128/77 139/78 139/78 O2 Sat by Pulse 92 94 94 Oximetry 08/14/20 08/14/20 08/14/20 15:00 15:15 15:25 Temperature Pulse Rate 89 88 89 Respiratory 30 H 30 H Rate Blood Pressure 132/76 132/76 132/76 O2 Sat by Pulse 94 95 94 Oximetry 08/14/20 08/14/20 08/14/20 15:30 15:45 16:00 Temperature 99 F Pulse Rate 92 H 90 91 H Respiratory 30 H 30 H 30 H Rate Blood Pressure 128/73 128/73 128/79 O2 Sat by Pulse 94 94 95 Oximetry 08/14/20 08/14/20 08/14/20 16:15 16:30 16:45 Temperature Pulse Rate 89 88 88 Respiratory 31 H 30 H 30 H Rate Blood Pressure 128/79 127/77 127/77 O2 Sat by Pulse 95 95 94 Oximetry 08/14/20 08/14/20 08/14/20 17:00 17:15 17:30 Temperature Pulse Rate 89 88 85 Respiratory 31 H 31 H 30 H Rate Blood Pressure 132/75 132/75 127/70 O2 Sat by Pulse 93 94 93 Oximetry 08/14/20 08/14/20 17:45 18:00 Temperature Pulse Rate 86 82 Respiratory 31 H 31 H Rate Blood Pressure 127/70 141/77 O2 Sat by Pulse 94 94 Oximetry Constitutional: other (orally intubated on vent) Eyes: non-icteric ENT: oropharynx moist Neck: supple Ascultation: Bilateral: other (coarse BS bilaterally) Cardiovascular: regular rate and rhythm, other (tachycardia) Gastrointestinal: normoactive bowel sounds, soft, non-tender, non-distended Integumentary: normal Extremities: no cyanosis Neurologic: other (sedated) Psychiatric: other (sedated) CBC and BMP: 08/14/20 08:50 08/14/20 05:00 ABG, PT/INR, D-dimer: ABG ABG pH 7.318 (7.320-7.450) L 08/14/20 04:00 POC ABG pCO2 77.2 mmHg (32.0-48.0) H 08/14/20 04:00 POC ABG pO2 82.4 mmHg (83-108) L 08/14/20 04:00 POC ABG HCO3 38.7 08/14/20 04:00 PT/INR, D-dimer PT 13.7 Sec. (12.2-14.9) 07/18/20 04:31 INR 1.06 (0.87-1.13) 07/18/20 04:31 D-Dimer 5413.39 ng/mlDDU (0-234) H 08/12/20 08:32 Abnormal lab findings: Abnormal Labs 07/17/20 07/17/20 07/17/20 17:30 17:30 22:48 WBC RBC Hgb Hct MCV MCH MCHC 35 H RDW Plt Count Lymph % (Auto) 10.5 L Lymph # (Auto) 0.7 L Seg Neutrophils % 85.3 H Lymphocytes % (Manual) Seg Neutrophils # Seg Neutrophils # Man Lymphocytes # (Manual) D-Dimer 314.21 H ABG pH POC ABG pCO2 POC ABG pO2 ABG Hemoglobin ABG Oxyhemoglobin ABG Sodium ABG Potassium ABG Chloride ABG Glucose Sodium Potassium Chloride Carbon Dioxide BUN 1 L Creatinine Glucose 154 H POC Glucose Calcium Magnesium Ferritin Alkaline Phosphatase Lactate Dehydrogenase Total Creatine Kinase CK-MB (CK-2) C-Reactive Protein Total Protein Albumin Triglycerides Arterial Blood Glucose Arterial Blood Ionized Calcium Coronavirus (PCR) SARS-CoV-2 IgG Ab 07/17/20 07/17/20 07/18/20 22:48 22:48 04:31 WBC RBC Hgb Hct MCV MCH 33 H MCHC 35 H RDW 13.1 L Plt Count Lymph % (Auto) Lymph # (Auto) Seg Neutrophils % Lymphocytes % (Manual) 5.0 L Seg Neutrophils # Seg Neutrophils # Man 8.1 H Lymphocytes # (Manual) 0.4 L D-Dimer ABG pH POC ABG pCO2 POC ABG pO2 ABG Hemoglobin ABG Oxyhemoglobin ABG Sodium ABG Potassium ABG Chloride ABG Glucose Sodium Potassium Chloride Carbon Dioxide BUN Creatinine Glucose 124 H POC Glucose Calcium Magnesium Ferritin 889.3 H Alkaline Phosphatase Lactate Dehydrogenase 832 H Total Creatine Kinase CK-MB (CK-2) C-Reactive Protein 17.70 H Total Protein Albumin Triglycerides Arterial Blood Glucose Arterial Blood Ionized Calcium Coronavirus (PCR) SARS-CoV-2 IgG Ab 07/18/20 07/18/20 07/18/20 04:31 08:50 18:48 WBC RBC Hgb Hct MCV MCH MCHC RDW Plt Count Lymph % (Auto) Lymph # (Auto) Seg Neutrophils % Lymphocytes % (Manual) Seg Neutrophils # Seg Neutrophils # Man Lymphocytes # (Manual) D-Dimer 275.27 H ABG pH POC ABG pCO2 POC ABG pO2 ABG Hemoglobin ABG Oxyhemoglobin ABG Sodium ABG Potassium ABG Chloride ABG Glucose Sodium Potassium Chloride Carbon Dioxide 31 H D BUN 23 H Creatinine Glucose 143 H POC Glucose Calcium Magnesium Ferritin Alkaline Phosphatase Lactate Dehydrogenase Total Creatine Kinase CK-MB (CK-2) C-Reactive Protein Total Protein Albumin Triglycerides Arterial Blood Glucose Arterial Blood Ionized Calcium Coronavirus (PCR) Positive A SARS-CoV-2 IgG Ab 07/18/20 07/18/20 07/20/20 18:48 18:48 08:56 WBC RBC Hgb Hct MCV MCH MCHC RDW Plt Count Lymph % (Auto) Lymph # (Auto) Seg Neutrophils % Lymphocytes % (Manual) Seg Neutrophils # Seg Neutrophils # Man Lymphocytes # (Manual) D-Dimer ABG pH POC ABG pCO2 POC ABG pO2 ABG Hemoglobin ABG Oxyhemoglobin ABG Sodium ABG Potassium ABG Chloride ABG Glucose Sodium Potassium Chloride Carbon Dioxide BUN 22 H Creatinine Glucose 219 H POC Glucose Calcium Magnesium Ferritin 1164.0 H Alkaline Phosphatase Lactate Dehydrogenase 560 H 739 H Total Creatine Kinase CK-MB (CK-2) C-Reactive Protein 18.00 H 17.50 H Total Protein Albumin 3.0 L Triglycerides Arterial Blood Glucose Arterial Blood Ionized Calcium Coronavirus (PCR) SARS-CoV-2 IgG Ab 07/20/20 07/20/20 07/21/20 08:56 08:56 05:24 WBC RBC Hgb Hct MCV MCH MCHC RDW Plt Count Lymph % (Auto) Lymph # (Auto) Seg Neutrophils % Lymphocytes % (Manual) Seg Neutrophils # Seg Neutrophils # Man Lymphocytes # (Manual) D-Dimer 9523.70 H ABG pH POC ABG pCO2 POC ABG pO2 ABG Hemoglobin ABG Oxyhemoglobin ABG Sodium ABG Potassium ABG Chloride ABG Glucose Sodium Potassium Chloride Carbon Dioxide BUN Creatinine Glucose POC Glucose Calcium Magnesium Ferritin 1581.0 H Alkaline Phosphatase Lactate Dehydrogenase Total Creatine Kinase CK-MB (CK-2) C-Reactive Protein Total Protein Albumin Triglycerides Arterial Blood Glucose Arterial Blood Ionized Calcium Coronavirus (PCR) SARS-CoV-2 IgG Ab Reactive A 07/22/20 07/24/20 07/26/20 04:31 13:26 10:07 WBC RBC Hgb Hct MCV MCH MCHC RDW Plt Count Lymph % (Auto) Lymph # (Auto) Seg Neutrophils % Lymphocytes % (Manual) Seg Neutrophils # Seg Neutrophils # Man Lymphocytes # (Manual) D-Dimer > 66835 H ABG pH POC ABG pCO2 POC ABG pO2 ABG Hemoglobin ABG Oxyhemoglobin ABG Sodium ABG Potassium ABG Chloride ABG Glucose Sodium 146 H Potassium Chloride Carbon Dioxide 32 H BUN 28 H 26 H Creatinine Glucose 144 H 116 H POC Glucose Calcium 8.3 L Magnesium Ferritin Alkaline Phosphatase Lactate Dehydrogenase Total Creatine Kinase CK-MB (CK-2) C-Reactive Protein Total Protein Albumin 3.3 L Triglycerides Arterial Blood Glucose Arterial Blood Ionized Calcium Coronavirus (PCR) SARS-CoV-2 IgG Ab 07/26/20 07/26/20 07/27/20 10:07 10:07 19:45 WBC RBC Hgb Hct MCV MCH MCHC RDW Plt Count Lymph % (Auto) Lymph # (Auto) Seg Neutrophils % Lymphocytes % (Manual) Seg Neutrophils # Seg Neutrophils # Man Lymphocytes # (Manual) D-Dimer ABG pH POC ABG pCO2 POC ABG pO2 ABG Hemoglobin ABG Oxyhemoglobin ABG Sodium ABG Potassium ABG Chloride ABG Glucose Sodium Potassium Chloride 97.4 L Carbon Dioxide 33 H BUN 27 H Creatinine Glucose 175 H POC Glucose Calcium Magnesium Ferritin 1079.0 H Alkaline Phosphatase Lactate Dehydrogenase 708 H Total Creatine Kinase CK-MB (CK-2) C-Reactive Protein 6.10 H Total Protein Albumin Triglycerides Arterial Blood Glucose Arterial Blood Ionized Calcium Coronavirus (PCR) SARS-CoV-2 IgG Ab 07/29/20 07/30/20 07/30/20 02:09 10:33 11:54 WBC RBC Hgb Hct MCV MCH MCHC RDW Plt Count Lymph % (Auto) Lymph # (Auto) Seg Neutrophils % Lymphocytes % (Manual) Seg Neutrophils # Seg Neutrophils # Man Lymphocytes # (Manual) D-Dimer ABG pH POC ABG pCO2 POC ABG pO2 ABG Hemoglobin ABG Oxyhemoglobin ABG Sodium ABG Potassium ABG Chloride ABG Glucose Sodium Potassium Chloride Carbon Dioxide BUN Creatinine Glucose POC Glucose 183 H Calcium Magnesium 3.00 H Ferritin Alkaline Phosphatase Lactate Dehydrogenase Total Creatine Kinase 174 H CK-MB (CK-2) 4.5 H C-Reactive Protein Total Protein Albumin Triglycerides Arterial Blood Glucose Arterial Blood Ionized Calcium Coronavirus (PCR) SARS-CoV-2 IgG Ab 07/30/20 07/30/20 07/31/20 17:30 23:08 11:04 WBC RBC Hgb Hct MCV MCH MCHC RDW Plt Count Lymph % (Auto) Lymph # (Auto) Seg Neutrophils % Lymphocytes % (Manual) Seg Neutrophils # Seg Neutrophils # Man Lymphocytes # (Manual) D-Dimer ABG pH POC ABG pCO2 POC ABG pO2 ABG Hemoglobin ABG Oxyhemoglobin ABG Sodium ABG Potassium ABG Chloride ABG Glucose Sodium 151 H D Potassium Chloride 109.2 H Carbon Dioxide 32 H BUN 48 H Creatinine Glucose 165 H POC Glucose 199 H 194 H Calcium Magnesium Ferritin Alkaline Phosphatase 168 H Lactate Dehydrogenase Total Creatine Kinase CK-MB (CK-2) C-Reactive Protein Total Protein Albumin 3.1 L Triglycerides Arterial Blood Glucose Arterial Blood Ionized Calcium Coronavirus (PCR) SARS-CoV-2 IgG Ab 07/31/20 07/31/20 07/31/20 11:18 11:23 17:47 WBC RBC Hgb Hct MCV MCH MCHC RDW Plt Count Lymph % (Auto) Lymph # (Auto) Seg Neutrophils % Lymphocytes % (Manual) Seg Neutrophils # Seg Neutrophils # Man Lymphocytes # (Manual) D-Dimer ABG pH POC ABG pCO2 56.6 H POC ABG pO2 73.1 L ABG Hemoglobin ABG Oxyhemoglobin 92.1 L ABG Sodium ABG Potassium ABG Chloride 108.0 H ABG Glucose 169 H Sodium Potassium Chloride Carbon Dioxide BUN Creatinine Glucose POC Glucose 156 H 169 H Calcium Magnesium Ferritin Alkaline Phosphatase Lactate Dehydrogenase Total Creatine Kinase CK-MB (CK-2) C-Reactive Protein Total Protein Albumin Triglycerides Arterial Blood Glucose 169 H Arterial Blood Ionized Calcium Coronavirus (PCR) SARS-CoV-2 IgG Ab 07/31/20 07/31/20 07/31/20 20:58 23:18 23:55 WBC 19.8 H RBC Hgb Hct MCV 95 H MCH MCHC RDW 13.0 L Plt Count Lymph % (Auto) Lymph # (Auto) Seg Neutrophils % Lymphocytes % (Manual) Seg Neutrophils # Seg Neutrophils # Man Lymphocytes # (Manual) D-Dimer ABG pH POC ABG pCO2 POC ABG pO2 ABG Hemoglobin ABG Oxyhemoglobin ABG Sodium ABG Potassium ABG Chloride ABG Glucose Sodium Potassium Chloride Carbon Dioxide BUN Creatinine Glucose POC Glucose 293 H 211 H Calcium Magnesium Ferritin Alkaline Phosphatase Lactate Dehydrogenase Total Creatine Kinase CK-MB (CK-2) C-Reactive Protein Total Protein Albumin Triglycerides Arterial Blood Glucose Arterial Blood Ionized Calcium Coronavirus (PCR) SARS-CoV-2 IgG Ab 08/01/20 08/01/20 08/01/20 03:47 08:30 12:27 WBC RBC Hgb Hct MCV MCH MCHC RDW Plt Count Lymph % (Auto) Lymph # (Auto) Seg Neutrophils % Lymphocytes % (Manual) Seg Neutrophils # Seg Neutrophils # Man Lymphocytes # (Manual) D-Dimer ABG pH POC ABG pCO2 49.8 H POC ABG pO2 123.4 H ABG Hemoglobin ABG Oxyhemoglobin ABG Sodium ABG Potassium 4.6 H ABG Chloride 111.0 H ABG Glucose 130 H Sodium 154 H Potassium Chloride 115.1 H Carbon Dioxide 32 H BUN 49 H Creatinine Glucose 492 H POC Glucose 161 H Calcium 7.2 L D Magnesium Ferritin Alkaline Phosphatase Lactate Dehydrogenase Total Creatine Kinase CK-MB (CK-2) C-Reactive Protein Total Protein Albumin Triglycerides Arterial Blood Glucose 130 H Arterial Blood Ionized Calcium 4.5 L Coronavirus (PCR) SARS-CoV-2 IgG Ab 08/01/20 08/01/20 08/02/20 16:55 23:06 05:00 WBC RBC Hgb Hct MCV MCH MCHC RDW Plt Count Lymph % (Auto) Lymph # (Auto) Seg Neutrophils % Lymphocytes % (Manual) Seg Neutrophils # Seg Neutrophils # Man Lymphocytes # (Manual) D-Dimer ABG pH POC ABG pCO2 52.5 H POC ABG pO2 69.8 L ABG Hemoglobin ABG Oxyhemoglobin ABG Sodium 147.2 H ABG Potassium ABG Chloride 110.0 H ABG Glucose 177 H Sodium Potassium Chloride Carbon Dioxide BUN Creatinine Glucose POC Glucose 195 H 162 H Calcium Magnesium Ferritin Alkaline Phosphatase Lactate Dehydrogenase Total Creatine Kinase CK-MB (CK-2) C-Reactive Protein Total Protein Albumin Triglycerides Arterial Blood Glucose 177 H Arterial Blood Ionized Calcium Coronavirus (PCR) SARS-CoV-2 IgG Ab 08/02/20 08/02/20 08/02/20 05:01 12:05 17:13 WBC RBC Hgb Hct MCV MCH MCHC RDW Plt Count Lymph % (Auto) Lymph # (Auto) Seg Neutrophils % Lymphocytes % (Manual) Seg Neutrophils # Seg Neutrophils # Man Lymphocytes # (Manual) D-Dimer ABG pH POC ABG pCO2 POC ABG pO2 ABG Hemoglobin ABG Oxyhemoglobin ABG Sodium ABG Potassium ABG Chloride ABG Glucose Sodium Potassium Chloride Carbon Dioxide BUN Creatinine Glucose POC Glucose 146 H 166 H 209 H Calcium Magnesium Ferritin Alkaline Phosphatase Lactate Dehydrogenase Total Creatine Kinase CK-MB (CK-2) C-Reactive Protein Total Protein Albumin Triglycerides Arterial Blood Glucose Arterial Blood Ionized Calcium Coronavirus (PCR) SARS-CoV-2 IgG Ab 08/02/20 08/03/20 08/03/20 23:26 04:06 04:34 WBC RBC Hgb Hct MCV MCH MCHC RDW Plt Count Lymph % (Auto) Lymph # (Auto) Seg Neutrophils % Lymphocytes % (Manual) Seg Neutrophils # Seg Neutrophils # Man Lymphocytes # (Manual) D-Dimer ABG pH POC ABG pCO2 55.6 H POC ABG pO2 66.1 L ABG Hemoglobin 11.9 L ABG Oxyhemoglobin 91.1 L ABG Sodium 145.7 H ABG Potassium 4.8 H ABG Chloride 111.0 H ABG Glucose 195 H Sodium Potassium Chloride Carbon Dioxide BUN Creatinine Glucose POC Glucose 157 H Calcium Magnesium Ferritin Alkaline Phosphatase Lactate Dehydrogenase Total Creatine Kinase CK-MB (CK-2) C-Reactive Protein Total Protein Albumin Triglycerides 207 H Arterial Blood Glucose 195 H Arterial Blood Ionized Calcium Coronavirus (PCR) SARS-CoV-2 IgG Ab 08/03/20 08/03/20 08/03/20 05:00 11:55 17:15 WBC RBC Hgb Hct MCV MCH MCHC RDW Plt Count Lymph % (Auto) Lymph # (Auto) Seg Neutrophils % Lymphocytes % (Manual) Seg Neutrophils # Seg Neutrophils # Man Lymphocytes # (Manual) D-Dimer ABG pH POC ABG pCO2 POC ABG pO2 ABG Hemoglobin ABG Oxyhemoglobin ABG Sodium ABG Potassium ABG Chloride ABG Glucose Sodium Potassium Chloride Carbon Dioxide BUN Creatinine Glucose POC Glucose 179 H 173 H 217 H Calcium Magnesium Ferritin Alkaline Phosphatase Lactate Dehydrogenase Total Creatine Kinase CK-MB (CK-2) C-Reactive Protein Total Protein Albumin Triglycerides Arterial Blood Glucose Arterial Blood Ionized Calcium Coronavirus (PCR) SARS-CoV-2 IgG Ab 08/03/20 08/04/20 08/04/20 23:01 03:59 05:30 WBC RBC Hgb Hct MCV MCH MCHC RDW Plt Count Lymph % (Auto) Lymph # (Auto) Seg Neutrophils % Lymphocytes % (Manual) Seg Neutrophils # Seg Neutrophils # Man Lymphocytes # (Manual) D-Dimer ABG pH POC ABG pCO2 54.6 H POC ABG pO2 66.2 L ABG Hemoglobin 10.8 L ABG Oxyhemoglobin 91.5 L ABG Sodium ABG Potassium ABG Chloride 110.0 H ABG Glucose 201 H Sodium Potassium Chloride Carbon Dioxide BUN Creatinine Glucose POC Glucose 222 H 137 H Calcium Magnesium Ferritin Alkaline Phosphatase Lactate Dehydrogenase Total Creatine Kinase CK-MB (CK-2) C-Reactive Protein Total Protein Albumin Triglycerides Arterial Blood Glucose 201 H Arterial Blood Ionized Calcium Coronavirus (PCR) SARS-CoV-2 IgG Ab 08/04/20 08/04/20 08/04/20 06:57 11:50 17:29 WBC RBC Hgb Hct MCV MCH MCHC RDW Plt Count Lymph % (Auto) Lymph # (Auto) Seg Neutrophils % Lymphocytes % (Manual) Seg Neutrophils # Seg Neutrophils # Man Lymphocytes # (Manual) D-Dimer ABG pH POC ABG pCO2 POC ABG pO2 ABG Hemoglobin ABG Oxyhemoglobin ABG Sodium ABG Potassium ABG Chloride ABG Glucose Sodium 151 H Potassium Chloride 111.3 H Carbon Dioxide 36 H BUN 32 H Creatinine Glucose 160 H POC Glucose 158 H 180 H Calcium 8.2 L Magnesium 2.60 H Ferritin Alkaline Phosphatase Lactate Dehydrogenase Total Creatine Kinase CK-MB (CK-2) C-Reactive Protein Total Protein Albumin Triglycerides Arterial Blood Glucose Arterial Blood Ionized Calcium Coronavirus (PCR) SARS-CoV-2 IgG Ab 08/04/20 08/05/20 08/05/20 23:01 04:49 05:11 WBC RBC Hgb Hct MCV MCH MCHC RDW Plt Count Lymph % (Auto) Lymph # (Auto) Seg Neutrophils % Lymphocytes % (Manual) Seg Neutrophils # Seg Neutrophils # Man Lymphocytes # (Manual) D-Dimer ABG pH POC ABG pCO2 56.7 H POC ABG pO2 80.6 L ABG Hemoglobin 10.9 L ABG Oxyhemoglobin ABG Sodium 145.9 H ABG Potassium ABG Chloride 109.0 H ABG Glucose 160 H Sodium Potassium Chloride Carbon Dioxide BUN Creatinine Glucose POC Glucose 160 H 134 H Calcium Magnesium Ferritin Alkaline Phosphatase Lactate Dehydrogenase Total Creatine Kinase CK-MB (CK-2) C-Reactive Protein Total Protein Albumin Triglycerides Arterial Blood Glucose 160 H Arterial Blood Ionized Calcium Coronavirus (PCR) SARS-CoV-2 IgG Ab 08/05/20 08/05/20 08/05/20 11:40 16:54 23:29 WBC RBC Hgb Hct MCV MCH MCHC RDW Plt Count Lymph % (Auto) Lymph # (Auto) Seg Neutrophils % Lymphocytes % (Manual) Seg Neutrophils # Seg Neutrophils # Man Lymphocytes # (Manual) D-Dimer ABG pH POC ABG pCO2 POC ABG pO2 ABG Hemoglobin ABG Oxyhemoglobin ABG Sodium ABG Potassium ABG Chloride ABG Glucose Sodium Potassium Chloride Carbon Dioxide BUN Creatinine Glucose POC Glucose 137 H 243 H 154 H Calcium Magnesium Ferritin Alkaline Phosphatase Lactate Dehydrogenase Total Creatine Kinase CK-MB (CK-2) C-Reactive Protein Total Protein Albumin Triglycerides Arterial Blood Glucose Arterial Blood Ionized Calcium Coronavirus (PCR) SARS-CoV-2 IgG Ab 08/06/20 08/06/20 08/06/20 05:24 06:00 08:59 WBC 14.1 H RBC Hgb 11.5 L Hct MCV 98 H MCH MCHC RDW Plt Count 107 L Lymph % (Auto) Lymph # (Auto) Seg Neutrophils % Lymphocytes % (Manual) Seg Neutrophils # Seg Neutrophils # Man Lymphocytes # (Manual) D-Dimer ABG pH POC ABG pCO2 58.9 H POC ABG pO2 53.0 L ABG Hemoglobin ABG Oxyhemoglobin 85.7 L ABG Sodium 148.4 H ABG Potassium 4.7 H ABG Chloride 109.0 H ABG Glucose 125 H Sodium Potassium Chloride Carbon Dioxide BUN Creatinine Glucose POC Glucose 122 H Calcium Magnesium Ferritin Alkaline Phosphatase Lactate Dehydrogenase Total Creatine Kinase CK-MB (CK-2) C-Reactive Protein Total Protein Albumin Triglycerides Arterial Blood Glucose 125 H Arterial Blood Ionized Calcium Coronavirus (PCR) SARS-CoV-2 IgG Ab 08/06/20 08/06/20 08/06/20 08:59 12:34 17:43 WBC RBC Hgb Hct MCV MCH MCHC RDW Plt Count Lymph % (Auto) Lymph # (Auto) Seg Neutrophils % Lymphocytes % (Manual) Seg Neutrophils # Seg Neutrophils # Man Lymphocytes # (Manual) D-Dimer ABG pH POC ABG pCO2 POC ABG pO2 ABG Hemoglobin ABG Oxyhemoglobin ABG Sodium ABG Potassium ABG Chloride ABG Glucose Sodium 151 H Potassium Chloride 110.7 H Carbon Dioxide 36 H BUN 29 H Creatinine 0.7 L Glucose 194 H POC Glucose 193 H 204 H Calcium Magnesium Ferritin Alkaline Phosphatase Lactate Dehydrogenase Total Creatine Kinase CK-MB (CK-2) C-Reactive Protein Total Protein Albumin Triglycerides Arterial Blood Glucose Arterial Blood Ionized Calcium Coronavirus (PCR) SARS-CoV-2 IgG Ab 08/06/20 08/07/20 08/07/20 23:25 04:00 04:00 WBC RBC 3.59 L Hgb 11.3 L Hct 35.0 L MCV 97 H MCH MCHC RDW Plt Count 103 L Lymph % (Auto) 11.5 L Lymph # (Auto) Seg Neutrophils % 82.9 H Lymphocytes % (Manual) Seg Neutrophils # 9.0 H Seg Neutrophils # Man Lymphocytes # (Manual) D-Dimer ABG pH POC ABG pCO2 POC ABG pO2 ABG Hemoglobin ABG Oxyhemoglobin ABG Sodium ABG Potassium ABG Chloride ABG Glucose Sodium 151 H Potassium Chloride 109.6 H Carbon Dioxide 34 H BUN 29 H Creatinine 0.5 L Glucose 134 H POC Glucose 150 H Calcium Magnesium Ferritin Alkaline Phosphatase Lactate Dehydrogenase Total Creatine Kinase CK-MB (CK-2) C-Reactive Protein Total Protein 5.4 L Albumin 2.8 L Triglycerides Arterial Blood Glucose Arterial Blood Ionized Calcium Coronavirus (PCR) SARS-CoV-2 IgG Ab 08/07/20 08/07/20 08/07/20 04:00 04:55 05:16 WBC RBC Hgb Hct MCV MCH MCHC RDW Plt Count Lymph % (Auto) Lymph # (Auto) Seg Neutrophils % Lymphocytes % (Manual) Seg Neutrophils # Seg Neutrophils # Man Lymphocytes # (Manual) D-Dimer ABG pH POC ABG pCO2 62.8 H POC ABG pO2 75.0 L ABG Hemoglobin 11.9 L ABG Oxyhemoglobin 93.2 L ABG Sodium 148.2 H ABG Potassium ABG Chloride 108.0 H ABG Glucose 150 H Sodium Potassium Chloride Carbon Dioxide BUN Creatinine Glucose POC Glucose 116 H Calcium Magnesium Ferritin Alkaline Phosphatase Lactate Dehydrogenase Total Creatine Kinase CK-MB (CK-2) C-Reactive Protein Total Protein Albumin Triglycerides 250 H Arterial Blood Glucose 150 H Arterial Blood Ionized Calcium Coronavirus (PCR) SARS-CoV-2 IgG Ab 08/07/20 08/07/20 08/07/20 12:36 17:46 23:09 WBC RBC Hgb Hct MCV MCH MCHC RDW Plt Count Lymph % (Auto) Lymph # (Auto) Seg Neutrophils % Lymphocytes % (Manual) Seg Neutrophils # Seg Neutrophils # Man Lymphocytes # (Manual) D-Dimer ABG pH POC ABG pCO2 POC ABG pO2 ABG Hemoglobin ABG Oxyhemoglobin ABG Sodium ABG Potassium ABG Chloride ABG Glucose Sodium Potassium Chloride Carbon Dioxide BUN Creatinine Glucose POC Glucose 160 H 168 H 111 H Calcium Magnesium Ferritin Alkaline Phosphatase Lactate Dehydrogenase Total Creatine Kinase CK-MB (CK-2) C-Reactive Protein Total Protein Albumin Triglycerides Arterial Blood Glucose Arterial Blood Ionized Calcium Coronavirus (PCR) SARS-CoV-2 IgG Ab 08/08/20 08/08/20 08/08/20 04:41 05:13 11:57 WBC RBC Hgb Hct MCV MCH MCHC RDW Plt Count Lymph % (Auto) Lymph # (Auto) Seg Neutrophils % Lymphocytes % (Manual) Seg Neutrophils # Seg Neutrophils # Man Lymphocytes # (Manual) D-Dimer ABG pH POC ABG pCO2 63.1 H POC ABG pO2 70.7 L ABG Hemoglobin 11.5 L ABG Oxyhemoglobin 91.0 L ABG Sodium 148.5 H ABG Potassium ABG Chloride 108.0 H ABG Glucose 102 H Sodium Potassium Chloride Carbon Dioxide BUN Creatinine Glucose POC Glucose 122 H 225 H Calcium Magnesium Ferritin Alkaline Phosphatase Lactate Dehydrogenase Total Creatine Kinase CK-MB (CK-2) C-Reactive Protein Total Protein Albumin Triglycerides Arterial Blood Glucose 102 H Arterial Blood Ionized Calcium Coronavirus (PCR) SARS-CoV-2 IgG Ab 08/08/20 08/08/20 08/09/20 17:16 23:06 05:22 WBC RBC Hgb Hct MCV MCH MCHC RDW Plt Count Lymph % (Auto) Lymph # (Auto) Seg Neutrophils % Lymphocytes % (Manual) Seg Neutrophils # Seg Neutrophils # Man Lymphocytes # (Manual) D-Dimer ABG pH POC ABG pCO2 POC ABG pO2 ABG Hemoglobin ABG Oxyhemoglobin ABG Sodium ABG Potassium ABG Chloride ABG Glucose Sodium Potassium Chloride Carbon Dioxide BUN Creatinine Glucose POC Glucose 188 H 129 H 112 H Calcium Magnesium Ferritin Alkaline Phosphatase Lactate Dehydrogenase Total Creatine Kinase CK-MB (CK-2) C-Reactive Protein Total Protein Albumin Triglycerides Arterial Blood Glucose Arterial Blood Ionized Calcium Coronavirus (PCR) SARS-CoV-2 IgG Ab 08/09/20 08/09/20 08/09/20 05:44 06:49 11:56 WBC RBC Hgb Hct MCV MCH MCHC RDW Plt Count Lymph % (Auto) Lymph # (Auto) Seg Neutrophils % Lymphocytes % (Manual) Seg Neutrophils # Seg Neutrophils # Man Lymphocytes # (Manual) D-Dimer ABG pH POC ABG pCO2 67.9 H POC ABG pO2 73.4 L ABG Hemoglobin 10.8 L ABG Oxyhemoglobin 92.7 L ABG Sodium 146.4 H ABG Potassium ABG Chloride ABG Glucose 165 H Sodium 151 H Potassium Chloride 108.8 H Carbon Dioxide 39 H BUN 32 H Creatinine 0.6 L Glucose 189 H POC Glucose 217 H Calcium 8.1 L Magnesium Ferritin Alkaline Phosphatase Lactate Dehydrogenase Total Creatine Kinase CK-MB (CK-2) C-Reactive Protein Total Protein Albumin Triglycerides Arterial Blood Glucose 165 H Arterial Blood Ionized Calcium Coronavirus (PCR) SARS-CoV-2 IgG Ab 08/09/20 08/09/20 08/10/20 17:01 23:35 05:00 WBC RBC Hgb Hct MCV MCH MCHC RDW Plt Count Lymph % (Auto) Lymph # (Auto) Seg Neutrophils % Lymphocytes % (Manual) Seg Neutrophils # Seg Neutrophils # Man Lymphocytes # (Manual) D-Dimer ABG pH POC ABG pCO2 POC ABG pO2 ABG Hemoglobin ABG Oxyhemoglobin ABG Sodium ABG Potassium ABG Chloride ABG Glucose Sodium 125 L D Potassium 3.5 L Chloride 88.7 L Carbon Dioxide 35 H BUN 25 H Creatinine 0.5 L Glucose 465 H POC Glucose 172 H 125 H Calcium 6.3 L D Magnesium Ferritin Alkaline Phosphatase Lactate Dehydrogenase Total Creatine Kinase CK-MB (CK-2) C-Reactive Protein Total Protein Albumin Triglycerides 1175 H Arterial Blood Glucose Arterial Blood Ionized Calcium Coronavirus (PCR) SARS-CoV-2 IgG Ab 08/10/20 08/10/20 08/10/20 05:09 05:24 08:00 WBC RBC Hgb Hct MCV MCH MCHC RDW Plt Count Lymph % (Auto) Lymph # (Auto) Seg Neutrophils % Lymphocytes % (Manual) Seg Neutrophils # Seg Neutrophils # Man Lymphocytes # (Manual) D-Dimer ABG pH 7.306 L POC ABG pCO2 75.1 H POC ABG pO2 76.1 L ABG Hemoglobin 10.7 L ABG Oxyhemoglobin ABG Sodium ABG Potassium ABG Chloride ABG Glucose 177 H Sodium 131 L Potassium Chloride 93.0 L Carbon Dioxide 35 H BUN 28 H Creatinine 0.6 L Glucose 433 H POC Glucose 161 H Calcium 6.6 L Magnesium Ferritin Alkaline Phosphatase Lactate Dehydrogenase Total Creatine Kinase CK-MB (CK-2) C-Reactive Protein Total Protein Albumin Triglycerides 869 H Arterial Blood Glucose 177 H Arterial Blood Ionized Calcium Coronavirus (PCR) SARS-CoV-2 IgG Ab 08/10/20 08/10/20 08/10/20 11:15 13:23 13:23 WBC RBC 3.18 L Hgb 10.1 L Hct 31.3 L MCV 98 H MCH MCHC RDW Plt Count 123 L Lymph % (Auto) Lymph # (Auto) Seg Neutrophils % Lymphocytes % (Manual) Seg Neutrophils # Seg Neutrophils # Man Lymphocytes # (Manual) D-Dimer ABG pH POC ABG pCO2 POC ABG pO2 ABG Hemoglobin ABG Oxyhemoglobin ABG Sodium ABG Potassium ABG Chloride ABG Glucose Sodium Potassium Chloride Carbon Dioxide 37 H BUN 29 H Creatinine 0.6 L Glucose 313 H POC Glucose 246 H Calcium 7.4 L Magnesium Ferritin Alkaline Phosphatase Lactate Dehydrogenase Total Creatine Kinase CK-MB (CK-2) C-Reactive Protein Total Protein Albumin Triglycerides Arterial Blood Glucose Arterial Blood Ionized Calcium Coronavirus (PCR) SARS-CoV-2 IgG Ab 08/10/20 08/10/20 08/10/20 13:23 16:43 23:20 WBC RBC Hgb Hct MCV MCH MCHC RDW Plt Count Lymph % (Auto) Lymph # (Auto) Seg Neutrophils % Lymphocytes % (Manual) Seg Neutrophils # Seg Neutrophils # Man Lymphocytes # (Manual) D-Dimer ABG pH POC ABG pCO2 POC ABG pO2 ABG Hemoglobin ABG Oxyhemoglobin ABG Sodium ABG Potassium ABG Chloride ABG Glucose Sodium Potassium Chloride Carbon Dioxide BUN Creatinine Glucose POC Glucose 238 H 111 H Calcium Magnesium Ferritin Alkaline Phosphatase Lactate Dehydrogenase Total Creatine Kinase CK-MB (CK-2) C-Reactive Protein 22.70 H Total Protein Albumin Triglycerides Arterial Blood Glucose Arterial Blood Ionized Calcium Coronavirus (PCR) SARS-CoV-2 IgG Ab 08/11/20 08/11/20 08/11/20 04:33 05:19 09:00 WBC RBC Hgb Hct MCV MCH MCHC RDW Plt Count Lymph % (Auto) Lymph # (Auto) Seg Neutrophils % Lymphocytes % (Manual) Seg Neutrophils # Seg Neutrophils # Man Lymphocytes # (Manual) D-Dimer ABG pH POC ABG pCO2 66.9 H POC ABG pO2 65.2 L ABG Hemoglobin 10.5 L ABG Oxyhemoglobin 91.7 L ABG Sodium ABG Potassium ABG Chloride ABG Glucose 124 H Sodium Potassium Chloride Carbon Dioxide 41 H* BUN 30 H Creatinine 0.5 L Glucose 204 H POC Glucose 106 H Calcium 8.1 L Magnesium Ferritin Alkaline Phosphatase Lactate Dehydrogenase Total Creatine Kinase CK-MB (CK-2) C-Reactive Protein Total Protein Albumin Triglycerides Arterial Blood Glucose 124 H Arterial Blood Ionized Calcium 4.5 L Coronavirus (PCR) SARS-CoV-2 IgG Ab 08/11/20 08/11/20 08/11/20 09:00 12:08 17:01 WBC RBC 3.01 L Hgb 9.6 L Hct 29.2 L MCV 97 H MCH MCHC RDW Plt Count Lymph % (Auto) Lymph # (Auto) Seg Neutrophils % Lymphocytes % (Manual) Seg Neutrophils # Seg Neutrophils # Man Lymphocytes # (Manual) D-Dimer ABG pH POC ABG pCO2 POC ABG pO2 ABG Hemoglobin ABG Oxyhemoglobin ABG Sodium ABG Potassium ABG Chloride ABG Glucose Sodium Potassium Chloride Carbon Dioxide BUN Creatinine Glucose POC Glucose 201 H 150 H Calcium Magnesium Ferritin Alkaline Phosphatase Lactate Dehydrogenase Total Creatine Kinase CK-MB (CK-2) C-Reactive Protein Total Protein Albumin Triglycerides Arterial Blood Glucose Arterial Blood Ionized Calcium Coronavirus (PCR) SARS-CoV-2 IgG Ab 08/11/20 08/12/20 08/12/20 23:17 03:31 04:00 WBC RBC 2.98 L Hgb 9.4 L Hct 28.7 L MCV 97 H MCH MCHC RDW Plt Count Lymph % (Auto) Lymph # (Auto) Seg Neutrophils % Lymphocytes % (Manual) Seg Neutrophils # Seg Neutrophils # Man Lymphocytes # (Manual) D-Dimer ABG pH POC ABG pCO2 65.1 H POC ABG pO2 ABG Hemoglobin 9.9 L ABG Oxyhemoglobin ABG Sodium 145.6 H ABG Potassium ABG Chloride ABG Glucose 106 H Sodium Potassium Chloride Carbon Dioxide BUN Creatinine Glucose POC Glucose 128 H Calcium Magnesium Ferritin Alkaline Phosphatase Lactate Dehydrogenase Total Creatine Kinase CK-MB (CK-2) C-Reactive Protein Total Protein Albumin Triglycerides Arterial Blood Glucose 106 H Arterial Blood Ionized Calcium Coronavirus (PCR) SARS-CoV-2 IgG Ab 08/12/20 08/12/20 08/12/20 04:00 07:14 08:32 WBC RBC Hgb Hct MCV MCH MCHC RDW Plt Count Lymph % (Auto) Lymph # (Auto) Seg Neutrophils % Lymphocytes % (Manual) Seg Neutrophils # Seg Neutrophils # Man Lymphocytes # (Manual) D-Dimer 5413.39 H ABG pH POC ABG pCO2 POC ABG pO2 ABG Hemoglobin ABG Oxyhemoglobin ABG Sodium ABG Potassium ABG Chloride ABG Glucose Sodium 149 H 149 H Potassium Chloride Carbon Dioxide 39 H 39 H BUN 31 H 33 H Creatinine 0.5 L 0.5 L Glucose 173 H POC Glucose Calcium 8.0 L 8.1 L Magnesium Ferritin Alkaline Phosphatase Lactate Dehydrogenase Total Creatine Kinase CK-MB (CK-2) C-Reactive Protein Total Protein Albumin Triglycerides Arterial Blood Glucose Arterial Blood Ionized Calcium Coronavirus (PCR) SARS-CoV-2 IgG Ab 08/12/20 08/12/20 08/12/20 08:32 08:32 12:15 WBC RBC Hgb Hct MCV MCH MCHC RDW Plt Count Lymph % (Auto) Lymph # (Auto) Seg Neutrophils % Lymphocytes % (Manual) Seg Neutrophils # Seg Neutrophils # Man Lymphocytes # (Manual) D-Dimer ABG pH POC ABG pCO2 POC ABG pO2 ABG Hemoglobin ABG Oxyhemoglobin ABG Sodium ABG Potassium ABG Chloride ABG Glucose Sodium Potassium Chloride Carbon Dioxide BUN Creatinine Glucose POC Glucose 270 H Calcium Magnesium Ferritin 1401.0 H Alkaline Phosphatase Lactate Dehydrogenase 378 H Total Creatine Kinase CK-MB (CK-2) C-Reactive Protein 19.50 H Total Protein Albumin Triglycerides Arterial Blood Glucose Arterial Blood Ionized Calcium Coronavirus (PCR) SARS-CoV-2 IgG Ab 08/12/20 08/12/20 08/13/20 17:52 23:07 05:13 WBC RBC Hgb Hct MCV MCH MCHC RDW Plt Count Lymph % (Auto) Lymph # (Auto) Seg Neutrophils % Lymphocytes % (Manual) Seg Neutrophils # Seg Neutrophils # Man Lymphocytes # (Manual) D-Dimer ABG pH POC ABG pCO2 POC ABG pO2 ABG Hemoglobin ABG Oxyhemoglobin ABG Sodium ABG Potassium ABG Chloride ABG Glucose Sodium Potassium Chloride Carbon Dioxide BUN Creatinine Glucose POC Glucose 178 H 128 H 130 H Calcium Magnesium Ferritin Alkaline Phosphatase Lactate Dehydrogenase Total Creatine Kinase CK-MB (CK-2) C-Reactive Protein Total Protein Albumin Triglycerides Arterial Blood Glucose Arterial Blood Ionized Calcium Coronavirus (PCR) SARS-CoV-2 IgG Ab 08/13/20 08/13/2008/13/21 06:30 12:08 14:12 WBC RBC Hgb Hct MCV MCH MCHC RDW Plt Count Lymph % (Auto) Lymph # (Auto) Seg Neutrophils % Lymphocytes % (Manual) Seg Neutrophils # Seg Neutrophils # Man Lymphocytes # (Manual) D-Dimer ABG pH 7.288 L POC ABG pCO2 81.8 H POC ABG pO2 ABG Hemoglobin 10.3 L ABG Oxyhemoglobin ABG Sodium 146.7 H ABG Potassium 5.3 H ABG Chloride ABG Glucose 278 H Sodium 148 H Potassium Chloride Carbon Dioxide 41 H* BUN 31 H Creatinine 0.5 L Glucose 145 H POC Glucose 205 H Calcium 8.2 L Magnesium Ferritin Alkaline Phosphatase Lactate Dehydrogenase Total Creatine Kinase CK-MB (CK-2) C-Reactive Protein Total Protein Albumin Triglycerides 167 H Arterial Blood Glucose 278 H Arterial Blood Ionized Calcium Coronavirus (PCR) SARS-CoV-2 IgG Ab 08/13/20 08/13/20 08/14/20 17:39 23:23 04:00 WBC RBC Hgb Hct MCV MCH MCHC RDW Plt Count Lymph % (Auto) Lymph # (Auto) Seg Neutrophils % Lymphocytes % (Manual) Seg Neutrophils # Seg Neutrophils # Man Lymphocytes # (Manual) D-Dimer ABG pH 7.318 L POC ABG pCO2 77.2 H POC ABG pO2 82.4 L ABG Hemoglobin 10.2 L ABG Oxyhemoglobin ABG Sodium 147.2 H ABG Potassium 4.6 H ABG Chloride ABG Glucose 212 H Sodium Potassium Chloride Carbon Dioxide BUN Creatinine Glucose POC Glucose 195 H 191 H Calcium Magnesium Ferritin Alkaline Phosphatase Lactate Dehydrogenase Total Creatine Kinase CK-MB (CK-2) C-Reactive Protein Total Protein Albumin Triglycerides Arterial Blood Glucose 212 H Arterial Blood Ionized Calcium Coronavirus (PCR) SARS-CoV-2 IgG Ab 08/14/20 08/14/20 08/14/20 05:00 05:13 08:50 WBC RBC 2.67 L Hgb 8.5 L Hct 26.6 L MCV 100 H MCH MCHC RDW Plt Count Lymph % (Auto) Lymph # (Auto) Seg Neutrophils % Lymphocytes % (Manual) Seg Neutrophils # Seg Neutrophils # Man Lymphocytes # (Manual) D-Dimer ABG pH POC ABG pCO2 POC ABG pO2 ABG Hemoglobin ABG Oxyhemoglobin ABG Sodium ABG Potassium ABG Chloride ABG Glucose Sodium 151 H Potassium Chloride Carbon Dioxide 43 H* BUN 41 H Creatinine 0.6 L Glucose 195 H POC Glucose 183 H Calcium 7.9 L Magnesium Ferritin Alkaline Phosphatase Lactate Dehydrogenase Total Creatine Kinase CK-MB (CK-2) C-Reactive Protein Total Protein Albumin Triglycerides Arterial Blood Glucose Arterial Blood Ionized Calcium Coronavirus (PCR) SARS-CoV-2 IgG Ab 08/14/20 08/14/20 11:32 17:50 WBC RBC Hgb Hct MCV MCH MCHC RDW Plt Count Lymph % (Auto) Lymph # (Auto) Seg Neutrophils % Lymphocytes % (Manual) Seg Neutrophils # Seg Neutrophils # Man Lymphocytes # (Manual) D-Dimer ABG pH POC ABG pCO2 POC ABG pO2 ABG Hemoglobin ABG Oxyhemoglobin ABG Sodium ABG Potassium ABG Chloride ABG Glucose Sodium Potassium Chloride Carbon Dioxide BUN Creatinine Glucose POC Glucose 147 H 244 H Calcium Magnesium Ferritin Alkaline Phosphatase Lactate Dehydrogenase Total Creatine Kinase CK-MB (CK-2) C-Reactive Protein Total Protein Albumin Triglycerides Arterial Blood Glucose Arterial Blood Ionized Calcium Coronavirus (PCR) SARS-CoV-2 IgG Ab Chest x-ray: report reviewed, image reviewed
--- NOTE | 2020-08-14 19:09 | Progress Note ---
Assessment and Plan Culture: Blood culture 08/02/2020 no growth Urine culture 08/02/2020<10,000 mixed bacteria Tracheal aspirate 08/02/2020 for specimen Blood culture 08/10/2020 no growth today Assessment: 60 years old male initially admitted on 07/17/2020 secondary to 2- week history of shortness of breath and cough, found to have severe COVID-19 pneumonia, treated with Decadron and remdesivir, respiratory failure worsened in tubated on 07/31/2020, remains on the ventilator since then, noted with a new intermittent fever on 08/01/2020 until yesterday: #New SIRS rule out sepsis: Not present on admission. Of unclear etiology. Possibilities: CAUTI, nosocomial pneumonia (however recent chest x-ray shows improved infiltrates), DVT/PEs?, Opportunistic infection due to prolonged steroid use (on dexamethasone for over 25 days). Urinalysis negative. Tracheal aspirate culture negative with no white cells. #Critical COVID-19 pneumonia: Inflammatory markers elevated. D-dimer was > 10,000, CT chest shows no pulmonary embolism, positive bilateral groundglass opacities. Venous ultrasound no DVT. Procalcitonin mildly elevated at 0.57; which is improved from previous #Acute hypoxemic respiratory failure: Patient intubated, likely secondary to COVID-19. #Right lip lesion:? Herpes labialis Recommendations: -Follow-up repeat blood cultures. They remain negative. -Obtain MRSA PCRpending -Covid markers are very high, worse then previous. -Anticoagulation per protocol -Continue cefepime 2 g IV every 12 hours empirically for now -Completed Valtrex -Consider taper off Decadron Guarded prognosis GPrasanth Light MD [facility] ([facility] O: [phone] F: [phone] Subjective Date of service: 08/14/20 Principal diagnosis: Acute respiratory failure with hypoxia, Covid pneumonia Interval history: Afebrile, normal white count. Cultures remain negative. She remains mechanically ventilated Objective - Exam Narrative Exam: General appearance: Sedated, intubated Eyes: anicteric sclerae, moist conjunctivae; no lid-lag; PERRLA HENT: Normocephalic, Atraumatic; normal external ears, nares open, oropharynx endotracheal tube in place, right leg ulcer Neck: supple, tracheal midline, no JVD Lungs: Diminished breath sound bilaterally CV: RRR no murmur Abdomen: Soft, nontender. Cabrera catheter in place Extremities: no edema, no cyanosis Skin: Right lip ulceration Psych: Sedated Neuro: Sedated - Constitutional Vitals: Vital Signs Temp Pulse Resp BP Pulse Ox 99 F 82 31 H 141/77 94 08/14/20 16:00 08/14/20 18:00 08/14/20 18:00 08/14/20 18:00 08/14/20 18:00 Temperature -Last 24 Hours Temperature 99 F Temperature 99.1 F Temperature 99 F Temperature 100.0 F Temperature 99.7 F Temperature 99.3 F - Labs CBC & Chem 7: 08/14/20 08:50 08/14/20 05:00 Labs: Abnormal lab results 08/13/20 08/14/20 08/14/20 Range/Units 23:23 04:00 05:00 RBC (3.65-5.03) M/mm3 Hgb (11.8-15.2) gm/dl Hct (35.5-45.6) % MCV (84-94) fl ABG pH 7.318 L (7.320-7.450) POC ABG pCO2 77.2 H (32.0-48.0) mmHg POC ABG pO2 82.4 L (83-108) mmHg ABG Hemoglobin 10.2 L (12.0-17.5) ABG Sodium 147.2 H (136.0-145.0) mmol/L ABG Potassium 4.6 H (3.40-4.50) mmol/L ABG Glucose 212 H (65-95) mg/dL Sodium 151 H (137-145) mmol/L Carbon Dioxide 43 H* (22-30) mmol/L BUN 41 H (9-20) mg/dL Creatinine 0.6 L (0.8-1.3) mg/dL Glucose 195 H (75-100) mg/dL POC Glucose 191 H (70-105) mg/dL Calcium 7.9 L (8.4-10.2) mg/dL Arterial Blood Glucose 212 H (65-95) mg/dL 08/14/20 08/14/20 08/14/20 Range/Units 05:13 08:50 11:32 RBC 2.67 L (3.65-5.03) M/mm3 Hgb 8.5 L (11.8-15.2) gm/dl Hct 26.6 L (35.5-45.6) % MCV 100 H (84-94) fl ABG pH (7.320-7.450) POC ABG pCO2 (32.0-48.0) mmHg POC ABG pO2 (83-108) mmHg ABG Hemoglobin (12.0-17.5) ABG Sodium (136.0-145.0) mmol/L ABG Potassium (3.40-4.50) mmol/L ABG Glucose (65-95) mg/dL Sodium (137-145) mmol/L Carbon Dioxide (22-30) mmol/L BUN (9-20) mg/dL Creatinine (0.8-1.3) mg/dL Glucose (75-100) mg/dL POC Glucose 183 H 147 H (70-105) mg/dL Calcium (8.4-10.2) mg/dL Arterial Blood Glucose (65-95) mg/dL 08/14/20 Range/Units 17:50 RBC (3.65-5.03) M/mm3 Hgb (11.8-15.2) gm/dl Hct (35.5-45.6) % MCV (84-94) fl ABG pH (7.320-7.450) POC ABG pCO2 (32.0-48.0) mmHg POC ABG pO2 (83-108) mmHg ABG Hemoglobin (12.0-17.5) ABG Sodium (136.0-145.0) mmol/L ABG Potassium (3.40-4.50) mmol/L ABG Glucose (65-95) mg/dL Sodium (137-145) mmol/L Carbon Dioxide (22-30) mmol/L BUN (9-20) mg/dL Creatinine (0.8-1.3) mg/dL Glucose (75-100) mg/dL POC Glucose 244 H (70-105) mg/dL Calcium (8.4-10.2) mg/dL Arterial Blood Glucose (65-95) mg/dL
[2020-08-14] MEDS: traZODone 50 MG TAB PO SCH (21:17)
[2020-08-15] MEDS: fentaNYL DRIP Premix 2,000 MCG/100 ML BAG IV SCH ×5 (01:19→22:32)
[2020-08-15] MEDS: INSULIN LISPRO 100 UNIT/ML VIAL 3 mL SUB-Q SCH ×4 (01:20→18:10)
[2020-08-15 05:44] LABS: Hematocrit 26.6 % (35.5-45.6); Hemoglobin 8.5 gm/dl (11.8-15.2); Mean Corpuscular HGB Conc 32 % (32-34); Mean Corpuscular Volume 99 fl (84-94); Platelet Count 206 K/mm3 (140-440); Red Cell Distribution Width 13.7 % (13.2-15.2)
[2020-08-15 06:05] LABS: Blood Urea Nitrogen 33 mg/dL (9-20); Hemolysis Index 11
[2020-08-15 06:08] LABS: BUN/Creatinine Ratio 83
[2020-08-15] MEDS ORDERED: dexAMETHasone 4 MG/ML VIAL IV SCH (08:38)
--- NOTE | 2020-08-15 08:49 | Progress Note ---
Assessment and Plan Assessment and plan: 60 YO Male HD #23 with acute hypoxemic respiratory failure, bilateral pneumonia secondary to coronavirus infection, cough who is currently intubated and on ventilatory support. Patient has poor prognosis. Patient currently unable to be weaned from ventilatory support. Patient has poor prognosis. No acute decompensation overnight. Closely monitor the patient and adjust management as needed Follow CTA chest, and inflammatory markers Consults recommendations noted and appreciated Plan of care reviewed with the patient and his nurse 07/20; patient is severely hypoxemic, on high flow oxygen 40 L/100%/O2 sats 95 Elevated D-dimers, patient is severely hypoxemic, will check CTA chest to rule out PE Also consider lower extremity venous Doppler to rule out DVT 07/21: Patient remains on high flow oxygen however mild improvement from 40 L to 35 l Tolerating prone position, continue steroids remdesivir CTA chest negative for PE, lower extremity venous Doppler negative for DVT Consults recommendations noted and appreciated Poor prognosis, patient is aware 07/22/2020; patient feels slightly better remains on high flow oxygen however lower than yesterday 35 L/95% /O2 sat 94% 07/21/2020 advised the patient to rest in prone position as tolerated Home oxygen evaluation 07/23/2020; remains on high flow oxygen, continue steroids remdesivir, prone position and comfort care Patient is critically ill with very poor prognosis and prolonged hypoxemia on high flow oxygen Plan of care reviewed with the patient and his nurse 07/24/2020; patient was severely hypoxemic rapid response called oxygen settings adjusted patient is currently better, requiring high flow oxygen right from the day he was admitted, poor prognosis, discussed with patient's 07/25/2020; patient remains on high flow oxygen in mild distress, overall prognosis poor I discussed with , and family friend physician extensively yesterday Poor prognosis continue current management 07/26/2020; patient remains on high flow oxygen 40 L/100%/95% O2 sat +100% nonrebreather Patient is critically ill, poor prognosis, ID pulmonary following 07/27/2020; patient remains on high flow oxygen 40 L/100%/[address] 100% nonrebreather Very poor prognosis, patient and family aware Pulmonary recommendations noted and appreciated 07/28/2020; patient remains critically ill, remains dependent on high flow oxygen 40 L +100% nonrebreather Very poor prognosis. 07/29/2020 Remains critically ill On high flow oxygen 07/30/2020 On high flow oxygen Is critically ill 07/31/2020 On high flow oxygen Critically ill 08/01/2020 on high flow oxygen Critically ill 08/02/2020 On Vent Weaning in progress 08/03/20 On Vent Weaning in progress 08/04/20 On vent Weaning in progress 08/05/20 Did not increase PEEP yesterday. PaO2 improved on own. Will wean FiO2 down today for sats >88%. Hold on proning for now. Continue steroids. Needs better rate control. Most likely sinus tach from hypoxemia, 08/08: Patient remains on full ventilatory support, critically ill, Proninng per Um Rn. Down to 60% oxygen FIO2. PEEP Lasix 20mg IV x 1 today, Consider changing to full dose anticoagulation. Discussed with Um Rn. Check Osmolality. Monitor Plt considering Lovenox Spoke with extensively and sister. 08/10; Continue supportive care, No significant clinical change, monitor for fever, continue pronining if tolerated. Being changed to Versed due to worsening triglycerides propofol has been stopped. Will discuss with critical care physician if some additional Lasix trial will be done as well monitoring patient's renal function. I have called and left a message for the family. 08/11: Continues with persistent hypoxia and hypercapnia. Intermittent fever. No elevated leukocytosis. Will reconsult ID to assist with management of this. Continue on full dose anticoagulation while monitoring H&H. We will hold off any further Lasix due to noted elevated bicarb. We will continue to monitor 08/12: Discussed with nursing staff. Also reviewed seo associate per document ation. Patient remains critically ill with no change for the better or for worse. Discussed with nursing staff patient still moves around but nonpurposeful movements not following commands. Will reevaluate during sedation vacation. We will continue to monitor hypernatremia and adjust fluids to help with improvement. I have called and update family, answered all questions. We will continue pronging 08/13: Updated family, Unfortunately no improvement, Will discuss with Um Rn if Diamox should be tried. Continue monitoring and on Restraints. 08/14: Continue supportive care. Will update family tomorrow. Continue to wean oxygen as tolerated. Pulmonary input noted patient on D5W for the next 24 hours while free water has been increased no diuresis or Diamox at this time per their recommendation. Prognosis remains guarded. 08/15: Continue supportive care. Await a.m. labs. Blood sugar sodium improved on D5 water. Still no clinical change. Discussed with clinical team Decadron has been discontinued. 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 -- Full code status Current Visit: Yes Status: Acute Plan to address problem: Patient is a full code. Advance care planning Current Visit: Yes Status: Acute Plan to address problem: Disease education conducted, patient is full code, patient has poor prognosis. Prognosis discussed. +30 minutes. The high probability of a clinically significant, sudden or life threatening deterioration of the [cardiac, pulmonary, neuro] system(s) required my full and direct attention, intervention and personal management. The aggregate critical care time was [45] minutes. This time is in addition to time spent performing reported procedures but includes the following: [x] Data Review and interpretation [x] Patient assessment and monitoring of vital signs [x] Documentation [x] Medication orders and management History Interval history: Patient seen and examined, unfortunately remains critically ill. No change in mental status but, FiO2 went back up to 55% due to worsening hypoxia on ABG. Not following any commands per nurse during sedation vacation Hospitalist Physical - Physical exam Narrative exam: General appearance: Present:on full ventilatory support, sedated - EENT Eyes: Present: miosis ENT: Not following commands - Neck Neck: Present: supple - Respiratory Respiratory effort: labored still mildly increased wob Respiratory: bilateral: diminished, rhonchi - Cardiovascular Rhythm: Regular but tachycardic Heart Sounds: Present: S1 & S2 - Extremities Extremities: no ischemia Peripheral Pulses: within normal limits - Abdominal General gastrointestinal: soft, non-tender, non-distended - Integumentary Integumentary: Present: dry - Psychiatric Psychiatric: no appropriate mood/affect, no intact judgment & insight, no memory intact - Neurologic Neurologic: CNII-XII intact, no gait normal - Constitutional Vitals: Temp Pulse Resp BP Pulse Ox 97.9 F 94 H 15 142/70 93 08/15/20 08:00 08/15/20 07:12 08/15/20 07:00 08/15/20 07:12 08/15/20 07:12 General appearance: Present: mild distress, well-nourished, other (Hypoxemic on high flow oxygen) HEART Score - HEART Score Troponin: Troponin T 0.018 ng/mL (0.00-0.029) 07/30/20 10:33 Results - Labs CBC & Chem 7: 08/15/20 Unknown 08/15/20 Unknown Labs: Laboratory Last Values WBC 11.9 K/mm3 (4.5-11.0) H 08/15/20 Unknown RBC 2.70 M/mm3 (3.65-5.03) L 08/15/20 Unknown Hgb 8.5 gm/dl (11.8-15.2) L 08/15/20 Unknown Hct 26.6 % (35.5-45.6) L 08/15/20 Unknown MCV 99 fl (84-94) H 08/15/20 Unknown MCH 32 pg (28-32) 08/15/20 Unknown MCHC 32 % (32-34) 08/15/20 Unknown RDW 13.7 % (13.2-15.2) 08/15/20 Unknown Plt Count 206 K/mm3 (140-440) 08/15/20 Unknown Lymph % (Auto) 11.5 % (13.4-35.0) L 08/07/20 04:00 [place] % (Auto) 3.2 % (0.0-7.3) 08/07/20 04:00 Eos % (Auto) 2.1 % (0.0-4.3) 08/07/20 04:00 Baso % (Auto) 0.3 % (0.0-1.8) 08/07/20 04:00 Lymph # (Auto) 1.3 K/mm3 (1.2-5.4) 08/07/20 04:00 [place] # (Auto) 0.3 K/mm3 (0.0-0.8) 08/07/20 04:00 Eos # (Auto) 0.2 K/mm3 (0.0-0.4) 08/07/20 04:00 Baso # (Auto) 0.0 K/mm3 (0.0-0.1) 08/07/20 04:00 Add Manual Diff Complete 07/18/20 04:31 Total Counted 100 07/18/20 04:31 Seg Neutrophils % 82.9 % (40.0-70.0) H 08/07/20 04:00 Lymphocytes % (Manual) 5.0 % (13.4-35.0) L 07/18/20 04:31 Monocytes % (Manual) 3.0 % (0.0-7.3) 07/18/20 04:31 Nucleated RBC % Not Reportable 07/18/20 04:31 Seg Neutrophils # 9.0 K/mm3 (1.8-7.7) H 08/07/20 04:00 Seg Neutrophils # Man 8.1 K/mm3 (1.8-7.7) H 07/18/20 04:31 Band Neutrophils # 0.0 K/mm3 07/18/20 04:31 Lymphocytes # (Manual) 0.4 K/mm3 (1.2-5.4) L 07/18/20 04:31 Abs React Lymphs (Man) 0.0 K/mm3 07/18/20 04:31 Monocytes # (Manual) 0.3 K/mm3 (0.0-0.8) 07/18/20 04:31 Eosinophils # (Manual) 0.0 K/mm3 (0.0-0.4) 07/18/20 04:31 Basophils # (Manual) 0.0 K/mm3 (0.0-0.1) 07/18/20 04:31 Metamyelocytes # 0.0 K/mm3 07/18/20 04:31 Myelocytes # 0.0 K/mm3 07/18/20 04:31 Promyelocytes # 0.0 K/mm3 07/18/20 04:31 Blast Cells # 0.0 K/mm3 07/18/20 04:31 WBC Morphology Not Reportable 07/18/20 04:31 Hypersegmented Neuts Not Reportable 07/18/20 04:31 Hyposegmented Neuts Not Reportable 07/18/20 04:31 Hypogranular Neuts Not Reportable 07/18/20 04:31 Smudge Cells Not Reportable 07/18/20 04:31 Toxic Granulation Not Reportable 07/18/20 04:31 Toxic Vacuolation Not Reportable 07/18/20 04:31 Dohle Bodies Not Reportable 07/18/20 04:31 Pelger-Huet Anomaly Not Reportable 07/18/20 04:31 Cheri Rods Not Reportable 07/18/20 04:31 Platelet Estimate Consistent w auto 07/18/20 04:31 Clumped Platelets Not Reportable 07/18/20 04:31 Plt Clumps, EDTA Not Reportable 07/18/20 04:31 Large Platelets Not Reportable 07/18/20 04:31 Giant Platelets Not Reportable 07/18/20 04:31 Platelet Satelliting Not Reportable 07/18/20 04:31 Plt Morphology Comment Not Reportable 07/18/20 04:31 RBC Morphology Not Reportable 07/18/20 04:31 Dimorphic RBCs Not Reportable 07/18/20 04:31 Polychromasia Not Reportable 07/18/20 04:31 Hypochromasia Not Reportable 07/18/20 04:31 Poikilocytosis Not Reportable 07/18/20 04:31 Anisocytosis 1+ 07/18/20 04:31 Microcytosis Not Reportable 07/18/20 04:31 Macrocytosis Not Reportable 07/18/20 04:31 Spherocytes Not Reportable 07/18/20 04:31 Pappenheimer Bodies Not Reportable 07/18/20 04:31 Sickle Cells Not Reportable 07/18/20 04:31 Target Cells Not Reportable 07/18/20 04:31 Tear Drop Cells Not Reportable 07/18/20 04:31 Ovalocytes Not Reportable 07/18/20 04:31 Helmet Cells Not Reportable 07/18/20 04:31 Siu-Waldorf Bodies Not Reportable 07/18/20 04:31 [place] Rings Not Reportable 07/18/20 04:31 [place] Cells Not Reportable 07/18/20 04:31 Bite Cells Not Reportable 07/18/20 04:31 Crenated Cell Not Reportable 07/18/20 04:31 Elliptocytes Not Reportable 07/18/20 04:31 Acanthocytes (Spur) Not Reportable 07/18/20 04:31 Rouleaux Not Reportable 07/18/20 04:31 Hemoglobin C Crystals Not Reportable 07/18/20 04:31 Schistocytes Not Reportable 07/18/20 04:31 Malaria parasites Not Reportable 07/18/20 04:31 ESR > 140.0 mm/Hr (0-20) 08/10/20 13:23 Wilfredo Bodies Not Reportable 07/18/20 04:31 Hem Pathologist Commnt No 07/18/20 04:31 PT 13.7 Sec. (12.2-14.9) 07/18/20 04:31 INR 1.06 (0.87-1.13) 07/18/20 04:31 D-Dimer 5413.39 ng/mlDDU (0-234) H 08/12/20 08:32 ABG pH 7.351 (7.320-7.450) 08/15/20 04:03 POC ABG pCO2 67.3 mmHg (32.0-48.0) H 08/15/20 04:03 POC ABG pO2 68.7 mmHg (83-108) L 08/15/20 04:03 POC ABG HCO3 36.4 08/15/20 04:03 POC ABG Base Excess 8.7 08/15/20 04:03 ABG Hemoglobin 11.5 (12.0-17.5) L 08/15/20 04:03 ABG Oxyhemoglobin 91.5 (94-98) L 08/15/20 04:03 ABG Methemoglobin 0.3 (0.0-1.5) 08/15/20 04:03 ABG Sodium 144.0 mmol/L (136.0-145.0) 08/15/20 04:03 ABG Potassium 4.3 mmol/L (3.40-4.50) 08/15/20 04:03 ABG Chloride 104.0 mmol/L (98-107) 08/15/20 04:03 ABG Glucose 172 mg/dL (65-95) H 08/15/20 04:03 Carboxyhemoglobin 1.3 (0.5-1.5) 08/15/20 04:03 FiO2 50 08/15/20 04:03 Sodium 144 mmol/L (137-145) 08/15/20 Unknown Potassium 4.5 mmol/L (3.6-5.0) 08/15/20 Unknown Chloride 101.6 mmol/L (98-107) 08/15/20 Unknown Carbon Dioxide 41 mmol/L (22-30) H* 08/15/20 Unknown Anion Gap 6 mmol/L 08/15/20 Unknown BUN 33 mg/dL (9-20) H 08/15/20 Unknown Creatinine 0.4 mg/dL (0.8-1.3) L 08/15/20 Unknown Estimated GFR > 60 ml/min 08/15/20 Unknown BUN/Creatinine Ratio 83 % 08/15/20 Unknown Glucose 167 mg/dL (75-100) H 08/15/20 Unknown POC Glucose 150 mg/dL (70-105) H 08/15/20 05:12 Osmolality 332 Mosm/kg 08/08/20 19:14 Lactic Acid 1.30 mmol/L (0.7-2.0) 08/10/20 13:23 Calcium 8.0 mg/dL (8.4-10.2) L 08/15/20 Unknown Phosphorus 2.60 mg/dL (2.5-4.5) 08/08/20 12:40 Magnesium 2.20 mg/dL (1.7-2.3) 08/08/20 12:40 Ferritin 1401.0 ng/mL (30.0-300.0) H 08/12/20 08:32 Total Bilirubin 0.40 mg/dL (0.1-1.2) 08/07/20 04:00 Direct Bilirubin < 0.2 mg/dL (0-0.2) 07/22/20 04:31 Indirect Bilirubin 0.0 mg/dL 07/22/20 04:31 AST 21 units/L (5-40) 08/07/20 04:00 ALT 44 units/L (7-56) 08/07/20 04:00 Alkaline Phosphatase 99 units/L (35-129) 08/07/20 04:00 Lactate Dehydrogenase 378 units/L (91-180) H 08/12/20 08:32 Total Creatine Kinase 174 units/L (55-170) H 07/30/20 10:33 CK-MB (CK-2) 4.5 ng/mL (0.0-4.0) H 07/30/20 10:33 CK-MB (CK-2) Rel Index 2.5 (0-4) 07/30/20 10:33 Troponin T 0.018 ng/mL (0.00-0.029) 07/30/20 10:33 C-Reactive Protein 19.50 mg/dL (0.00-1.30) H 08/12/20 08:32 NT-Pro-B Natriuret Pep 290.3 pg/mL (0-900) 07/18/20 16:33 Total Protein 5.4 g/dL (6.3-8.2) L 08/07/20 04:00 Albumin 2.8 g/dL (3.9-5) L 08/07/20 04:00 Albumin/Globulin Ratio 1.1 % 08/07/20 04:00 Triglycerides 167 mg/dL (2-149) H 08/13/20 06:30 Procalcitonin 0.57 ng/mL (<0.15) 08/12/20 08:32 Arterial Blood Glucose 172 mg/dL (65-95) H 08/15/20 04:03 Arterial Blood Ionized Calcium 4.7 mg/dL (4.6-5.3) 08/15/20 04:03 Urine Color Yellow (Yellow) 08/12/20 10:05 Urine Turbidity Clear (Clear) 08/12/20 10:05 Urine pH 6.0 (5.0-7.0) 08/12/20 10:05 Ur Specific Tony 1.023 (1.003-1.030) 08/12/20 10:05 Urine Protein 30 mg/dl mg/dL (Negative) 08/12/20 10:05 Urine Glucose (UA) Neg mg/dL (Negative) 08/12/20 10:05 Urine Ketones Neg mg/dL (Negative) 08/12/20 10:05 Urine Blood Neg (Negative) 08/12/20 10:05 Urine Nitrite Neg (Negative) 08/12/20 10:05 Urine Bilirubin Neg (Negative) 08/12/20 10:05 Urine Urobilinogen 4.0 mg/dL (<2.0) 08/12/20 10:05 Ur Leukocyte Esterase Neg (Negative) 08/12/20 10:05 Urine WBC (Auto) 5.0 /HPF (0.0-6.0) 08/12/20 10:05 Urine RBC (Auto) 13.0 /HPF (0.0-6.0) 08/12/20 10:05 U Epithel Cells (Auto) < 1.0 /HPF (0-13.0) 08/12/20 10:05 Hyaline Casts 1 /LPF 08/02/20 11:30 Granular Casts 1 /LPF 08/02/20 11:30 Urine Mucus Few /HPF 08/12/20 10:05 Nasal Screen MRSA (PCR) Negative (Negative) 08/12/20 10:05 Coronavirus (PCR) Positive (Negative) A 07/18/20 08:50 SARS-CoV-2 IgG Ab Reactive (NonReactive) A 07/21/20 05:24 Microbiology: Microbiology 08/10/20 13:23 Peripheral/Venous Blood Culture - Preliminary NO GROWTH AFTER 4 DAYS 08/10/20 13:23 Peripheral/Venous Blood Culture - Preliminary NO GROWTH AFTER 4 DAYS 08/12/20 08:24 Tracheal Aspirate Sputum Culture - Final 08/12/20 10:05 Urine,Catheterized - Indwelling Catheter Urine Culture - Final [place]/IV: Voiding Method Indwelling Catheter IV Catheter Type [Left Upper PICC Line arm] IV Catheter Type [Left Hand] INT / Saline Lock IV Catheter Type [Left Wrist] INT / Saline Lock IV Catheter Type [Left INT / Saline Lock Antecubital] IV Catheter Type [Right Distal INT / Saline Lock Port Hand] Active Medications - Current Medications Current Medications: Generic Name Dose Route Start Last Admin Trade Name Freq PRN Reason Stop Dose Admin Acetaminophen 650 mg 07/17/20 22:21 08/06/20 13:14 Acetaminophen 325 Mg Tab PO 650 mg Q4H PRN Administration Pain MILD(1-3)/Fever >100.5/AWAD Albuterol 2.5 mg 07/18/20 16:14 07/18/20 19:45 Albuterol 2.5 Mg/3 Ml Nebu IH 2.5 mg Q4HRT PRN Administration Shortness Of Breath Lipase/Protease/Amylase 1 each 07/31/20 12:23 Lipase 10,500/Protease 25,000/Amylase 43,750 (Units) Dr Olson FEEDTUBE PRN PRN For Clogged Feeding Tube Ascorbic Acid 1,000 mg 08/08/20 22:00 08/14/20 21:18 Ascorbic Acid 500 Mg Tab PO 1,000 mg BID SHERON Administration Cholecalciferol 5,000 unit 08/08/20 19:00 08/14/20 10:46 Cholecalciferol (Vit D3) 5,000 Unit Tab PO 5,000 unit DAILY SHERON Administration Dextrose 50 ml 08/06/20 13:14 Dextrose 50% In Water (25gm) 50 Ml Syringe IV Q30MIN PRN Hypoglycemia Protocol Enoxaparin Sodium 90 mg 08/08/20 22:00 08/14/20 21:18 Enoxaparin 100 Mg/1 Ml Inj 1 mg/kg (90 mg) 90 mg SUB-Q Administration Q12HR SHERON Protocol Famotidine 20 mg 08/01/20 10:00 08/14/20 21:17 Famotidine 20 Mg Tab PO 20 mg BID SHERON Administration Hydrophilic Ointment 1 applic 07/31/20 11:00 Lip Therapy Vaseline TP Q2H PRN Dry Lips Norepinephrine 4 mg in 250 mls @ 7.5 mls/hr 07/31/20 09:00 08/01/20 02:37 Levophed Drip 4 Mg/Ns 250 Ml IV 0 mcg/min TITR SHERON 0 mls/hr Titration Protocol 2 MCG/MIN Fentanyl Citrate 2,000 mcg in 100 mls @ 4.43 mls/hr 07/31/20 11:00 08/15/20 06:47 Fentanyl Drip Premix IV 4 mcg/kg/hr TITR SHERON 17.72 mls/hr Administration Protocol 1 MCG/KG/HR Midazolam HCl 100 mg/ Sodium 100 mls @ 2 mls/hr 08/10/20 11:00 08/15/20 08:34 Chloride IV 4 mg/hr TITR SHERON 4 mls/hr Titration Protocol 2 MG/HR Cefepime HCl 2 gm in 100 mls @ 200 mls/hr 08/12/20 10:00 08/14/20 21:17 Cefepime/Ns 2 Gm/100 Ml IV 200 mls/hr Q12HR SHERON Administration Protocol Dextrose 1,000 mls @ 75 mls/hr 08/13/20 20:00 08/14/20 17:10 D5w IV 50 mls/hr DIRECT SHERON Administration Insulin Human Lispro 0 unit 08/07/20 00:00 08/15/20 05:18 Insulin Lispro 100 Unit/Ml Vial 3 Ml SUB-Q 2 unit Q6HR SHERON Administration Protocol Lorazepam 2 mg 08/08/20 11:36 08/11/20 13:45 Lorazepam 2 Mg/Ml Vial IV 2 mg Q4H PRN Administration Agitation Magnesium Hydroxide 30 ml 07/17/20 22:21 08/05/20 11:11 Magnesium Hydroxide (Mom) Oral Liqd Udc PO 30 ml Q4H PRN Administration Constipation Multi-Ingred Cream/Lotion/Oil/Oint 1 applic 07/31/20 10:55 Mineral Oil/Petrolatum, White Ophth Oint 3.5 Gm OU Q4H PRN Dry Eye(s) Ondansetron HCl 4 mg 07/17/20 22:21 07/20/20 02:21 Ondansetron 4 Mg/2 Ml Inj IV 4 mg Q8H PRN Administration Nausea And Vomiting Senna/Docusate Sodium 2 tab 08/03/20 11:00 08/14/20 21:17 Sennosides/Docusate Sodium 8.6/50 Mg Tab PO 2 tab BID SHERON Administration Simple Syrup 15 ml 07/31/20 12:23 Simple Syrup 15 Ml FEEDTUBE PRN PRN Hypoglycemia Simple Syrup 30 ml 07/31/20 12:23 Simple Syrup 15 Ml FEEDTUBE PRN PRN Hypoglycemia Sodium Bicarbonate 325 mg 07/31/20 12:23 Sodium Bicarbonate 325 Mg Tab FEEDTUBE PRN PRN For Clogged Feeding Tube Sodium Chloride 10 ml 07/17/20 22:01 07/17/20 22:13 Sodium Chloride 0.9% 10 Ml Flush Syringe IV 10 ml PRN PRN Administration LINE FLUSH Sodium Chloride 10 ml 07/18/20 10:00 08/14/20 21:22 Sodium Chloride 0.9% 10 Ml Flush Syringe IV 10 ml BID SHERON Administration Trazodone HCl 50 mg 07/30/20 22:00 08/14/20 21:17 Trazodone 50 Mg Tab PO 50 mg QHS SHERON Administration Zinc Sulfate 220 mg 08/08/20 19:00 08/14/20 10:47 Zinc Sulfate 220 Mg Cap PO 220 mg QDAY SHERON Administration Nutrition/Malnutrition Assess - Dietary Evaluation Nutrition/Malnutrition Findings: Nutrition Notes Start: 07/23/20 13:19 Freq: Status: Active Protocol: Document 08/12/20 11:28 CW (Rec: 08/12/20 12:16 CW [id number]) Co-Sign 08/12/20 11:28 MK Nutrition Notes Need for Assessment generated from: MD Order Initial or Follow up Reassessment Current Diagnosis Respiratory Failure Other Pertinent Diagnosis COVID-19 (+), pneu, prerenal azotemia Current Diet Vital AF 1.2 at 70 mL/hr Labs/Tests Na 149 BUN 33 Cr 0.5 BG 173 Pertinent Medications Decadron Height 5 ft 11 in Weight 89.4 kg [place] Body Weight (kg) 78.18 BMI 27.4 Weight change and time frame Wt change noted, pt oliguric Weight Status Overweight Subjective/Other Information FU for Na, water flushes, prone status, and TF tolerance . Per MD consult for TF management, discussed with RN about total fluid volume given and needed flushes for hypernatremia during proning. Observed pt supine with 120ml/ hr TF running. Pt tolerating TF. Percent of energy/protein needs met: 96%/100% Burn Absent Trauma Absent GI Symptoms None Difficulty In Swallowing Current % PO Negligible Minimum of two criteria Yes Energy Intake (severe) < or equal to 50% Estimated Energy Requirement > or equal to 5 days Fluid Accumulation Mild (non-severe) Reduced Cadd Operator Strength Measurably Reduced (severe) #2 Nutrition Diagnosis Malnutrition Diagnosis Progress(for reassessment Continues documentation) #1 Nutrition Diagnosis Inadequate oral intake Diagnosis Progress(for reassessment Continues documentation) Is patient on ventilator? Yes Is Patient Ambulatory and/or Out of Bed No REE-([facility]-confined to bed) 5.402 Calculation Used for Recommendations [facility] Additional Notes Pro needs 1.2-2g/k-178g/ day Fluid needs 1ml/kcal Nutrition Intervention Change Diet Order: Continue TF Nutrition Support: Vital AF 1.2 at 70ml/hr with 300ml water flush q4h until hypernatremia resolved; then 115ml q4h. When pronin hr proned: Vital AF 1.2 at 20 ml/hr, flush 100 ml q4h for hypernatremia, or per MD; then 50 ml q4h once resolved. 12 hr supine: Vital AF 1.2 at 120 ml/hr, flush 350 ml q4h for hypernatremia, or per MD; then 180 q4h once resolved. Kcal 2,016 Protein (gm) 126 Fluid (mL) 1,362 Goal #1 Continued TF tolerance Goal #2 Continue to meet at least 75% of estimated energy and protein needs via TF. Anticipated Discharge Needs: Unable to determine at this time Follow-Up By: 08/16/20 Additional Comments FU for TF tolerance, prone status, hypernatremia
[2020-08-15] MEDS: CEFEPIME/NS 2 GM/100 ML 2 GM/100 ML BAG IV SCH ×2 (10:07→22:37)
[2020-08-15] MEDS: FAMOTIDINE 20 MG TAB PO SCH ×2 (10:07→22:38)
[2020-08-15] MEDS: CHOLECALCIFEROL (VIT D3) 5,000 UNIT TAB PO SCH (10:07)
[2020-08-15] MEDS: ENOXAPARIN 100 MG/1 ML INJ SUB-Q SCH ×2 (10:07→22:40)
[2020-08-15] MEDS: ZINC SULFATE 220 MG CAP PO SCH (10:08)
[2020-08-15] MEDS: ASCORBIC ACID 500 MG TAB PO SCH ×2 (10:08→22:38)
[2020-08-15] MEDS: SENNOSIDES/DOCUSATE SODIUM 8.6/50 MG TAB PO SCH ×2 (10:08→22:38)
[2020-08-15] MEDS: MIDAZOLAM 100 MG in SODIUM CHLORIDE 0.9% 80 ML IV SCH (10:09)
--- NOTE | 2020-08-15 11:23 | Progress Note ---
Assessment and Plan 60 y/o male with chest discomfort, shortness of breath and abnormal CXR, COVID Positive 08/15/20: Day 14 of intubation. Stopped steroids over the weekend. Last bicarb was 43 but this was yesterday. Wound care consult. Hopeful they can given us something so that we can start proning again. Hold on proning now. Agree with weaning sedation as tolerated. still making good urine. Agree with D5 but now sodium in normal range now so can discontinue. Prognosis remains guarded. Patient will most likely require a trach if able to be weaned successfully. If possible please discuss the possiblity of this with the family. I like to discuss these things early if possible so it does not come as a shock. I have not developed the best rapport with them so I am asking the [facility] physician to mention this today when they update the family. 08/12/20: Day 11 of intubation. Bicarb is down to 39. pH is not alkalotic. Maxed on Versed at 5 and currently Fentanyl at 4. Urine output remains stable. Will continue proning although has not been responding as well as possible. Hold on diuretic therapy. Needs more free water flushes vs D5W to help with elevated sodium. Guarded prognosis. Please discuss with family that pulmonary [place] unfortunately there has been no change, however he has not gotten worse. we will continue steroid therapy as well as proning. We will wean the oxygen as best we can when his saturations will tolerate it. 08/11/20: Day 10 of intubation. Most likely elevated bicarb is from Steroids (has been on them 25 days). No need to treat at the moment. If his serum bicarb gets about 45-46 will treat with diamox therapy. This will remove bicarb and help with volume. Hold on any further lasix therapy for now also. Will repeat Trigylcerides over the weekend. No diprovan at this time. If more sedation is needed, can look at pentobarb or phenobarbital coma to assist with sedation. Daily labs to monitor renal function. Prognosis remains very guarded. Wean FiO2 for sats>88% 08/10/20: Day 9 of intubation. Unfortunately we must stop diprovan. Will place patient on Versed drip along with Fentanyl drip. Needs daily chemistries to assess renal function so that medication does not build up in patient system. All free water drips as well as flushes have been stopped. Will repeat Chemistry again today at 1400. Prone again today as well. Wean FiO2 for sats > 88%. If able to speak with family, would I would tell them is that patient remains critically ill and we will continue to prone on a daily basis to help with oxygenation. I would also tell them we changed the sedation to prevent complications from higher levels. His renal function so far has remained stable which is a good thing but we will monitor it daily. Overall prognosis is still guarded to poor. 08/09/20: Day 8 of intubation. Continue proning as patient is tolerating this and making slow improvement. Continue PEEP at current settings. IMS will update family and I will discuss with IMS my medical opinion to be conveyed to them. 08/08/20: Prone again today. Same weaning parameters as yesterday. Will order labs for am. Calling now and see if she needs the other the family on the phone to update her. Prognosis still remains very guarded to poor. Asked RT to be as aggressive as possible with weaning FiO2. The unfortunately is not understanding how sick the patient is. I am trying my best to explain to her on a daily basis about this. But she does not accept when I tell her that he has remained stable. 08/07/20: Will prone again today. Wean FiO2 for sats >88% and PaO2 >55. Continue to monitor daily urine function and output. I again today explained the severity of the Mr. Suarez's clinical state as best I could using laymen terms. The other family member on the phone says that the communication has not bee consistent. The patient received Remdesivir while he was on the floor. He did get all 5 doses. I explained to the family that there is no indication for longer therapy or ID would have recommended. I also explained to them that I have extended the steroids to see if this would help beyond the current clinical recommendations. I also explained again that there is no cure for COVID 19 and that all measures are experimental as well as supportive. I also explained why he needs sedation while intubated and especially when proning. I am still not sure that they fully understand the extent of his illness but will continue to s peak with them. Guarded prognosis. 08/06/20: Increase PEEP today to 16. Repeat gas tomorrow morning. Wean FiO2 today for sats >88%. Spoke with RT and PaO2 of 55 and greater are ok. will prone tonight for 12 hours at least. Remains in sinus tach. No labs drawn this am will order for stat this morning including BMP and Mag and Phos, CBC. Spoke with this am to update her. She is upset and asks to do everything for him that we can which I told her we would. I was also very honest about the severity of the disease which made her even more sad. 08/05/20: Did not increase PEEP yesterday. PaO2 improved on own. Will wean FiO2 down today for sats >88%. Hold on proning for now. Continue steroids. Needs better rate control. Most likely sinus tach from hypoxemia, but needs 12 lead if not done yet. Needs labs checked to assess electrolytes. Prognosis remains guarded to poor. Will attempt to reach today, if not today tomorrow. 08/04/20: Will increase PEEP to 16 today. If no improvement in the next 24 hours then will start proning patient tomorrow night. Continue steroids. Overall prognosis remains very guarded. 08/03/20: Chemistry not ordered, ordered today. Follow up blood cultures. Increased PEEP to 14 and RT will attempt to wean FiO2 back down to 50's. Will continue steroids at current dosing for now. He has already completed to original 10 days. Given some improvement, would like to continue. Overall prognosis remains very guarded. 08/02/20: Check blood and urine cultures along with UA. Will check repeat CXR. Repeat Chemistry tomorrow. Hold on abx therapy for right now. Prognosis remains guarded. Continue steroids. Wean FiO2 for sats >88% 08/01/20: Overall prognosis here is very very guarded to poor. Will consider proning patient later today if not able to wean FiO2 any further this afternoon. Per CM, wants to come see patient which is very reasonable. Will continue steroids despite completing 10 days of this. 07/29/20: Supportive measures. Proning and wean as tolerated. 07/28/20: No new recommendations as of right now. When beds become available will move patient down stairs for closer monitoring. 07/27/20: Difficult situation. Patient appears to be not responding to any therapy. Steroids finished yesterday. Given the degree of inflammation will restart steroids for at least another 72-96 hours. In no improvement will stop. Not much else to do medical therapy [place]. Continue to keep patient net negative. Still remains high risk for intubation and if intubated given his current response to steroids, very high mortality. 07/26/20: No new recs for today. Patient really needs to try to prone as much as possible during the day and sleep prone at night. He remains a high risk for cardiac arrest and intubation. 07/25/20: very high risk for cardiac arrest from hypoxemia, but no available beds in ICU. Given COVID status, ideally would not like to use bipap but may have to in the event of continued desats. While proning does better and does not need the mask along with HFNC. Encourage to prone as long as possible. 1. Continue steroids for 10 days. 2. Continue Remdesivir. Not a candidate for Convalescent Plasma 3. Please ask patient prone as tolerated during the day and sleep prone at night. Currently doing and tolerating 4. Agree with daily lasix but will need labs to monitor renal function and electrolytes. Needs labs for today. 5. Guarded prognosis to poor now with increasing oxygen requirement. May require intubation and high risk for cardiac arrest. CCT 31 Subjective Date of service: 08/15/20 Principal diagnosis: Acute respiratory failure with hypoxia, Covid pneumonia Interval history: No acute events. Remains sedated. Has not been able to prone secondary to facial breakdown. Back up to 60%. PEEP still at 16. Objective Vital Signs - 12hr 08/14/20 08/14/20 08/14/20 23:15 23:30 23:45 Temperature Pulse Rate 87 85 86 Pulse Rate [ From Monitor] Respiratory 30 H 30 H 30 H Rate Blood Pressure 118/74 118/74 118/74 O2 Sat by Pulse 96 96 96 Oximetry 08/15/20 08/15/20 08/15/20 00:00 00:15 00:30 Temperature 99.8 F H Pulse Rate 84 86 72 Pulse Rate [ 72 From Monitor] Respiratory 30 H 30 H 20 Rate Blood Pressure 122/74 122/74 114/69 O2 Sat by Pulse 96 96 95 Oximetry 08/15/20 08/15/20 08/15/20 00:45 01:00 01:15 Temperature Pulse Rate 76 77 76 Pulse Rate [ From Monitor] Respiratory 30 H 30 H 30 H Rate Blood Pressure 114/69 123/71 123/71 O2 Sat by Pulse 94 94 95 Oximetry 08/15/20 08/15/20 08/15/20 01:30 01:45 02:00 Temperature Pulse Rate 74 82 81 Pulse Rate [ From Monitor] Respiratory 30 H 30 H 15 Rate Blood Pressure 127/70 127/70 114/63 O2 Sat by Pulse 95 96 94 Oximetry 08/15/20 08/15/20 08/15/20 02:15 02:30 02:45 Temperature Pulse Rate 82 82 80 Pulse Rate [ From Monitor] Respiratory 15 26 H 14 Rate Blood Pressure 114/63 116/62 116/62 O2 Sat by Pulse 95 93 93 Oximetry 08/15/20 08/15/20 08/15/20 02:55 03:00 03:15 Temperature 98.9 F Pulse Rate 80 70 Pulse Rate [ From Monitor] Respiratory 27 H 31 H Rate Blood Pressure 115/65 116/62 O2 Sat by Pulse 95 93 Oximetry 08/15/20 08/15/20 08/15/20 03:30 03:45 04:00 Temperature Pulse Rate 77 84 85 Pulse Rate [ 69 From Monitor] Respiratory 30 H 22 30 H Rate Blood Pressure 120/66 115/65 120/69 O2 Sat by Pulse 95 93 94 Oximetry 08/15/20 08/15/20 08/15/20 04:15 04:31 04:45 Temperature Pulse Rate 75 82 79 Pulse Rate [ From Monitor] Respiratory 22 16 13 Rate Blood Pressure 120/69 144/76 144/76 O2 Sat by Pulse 94 91 91 Oximetry 08/15/20 08/15/20 08/15/20 05:00 05:15 05:30 Temperature Pulse Rate 82 81 89 Pulse Rate [ From Monitor] Respiratory 14 29 H 18 Rate Blood Pressure 141/76 144/76 131/77 O2 Sat by Pulse 92 95 91 Oximetry 08/15/20 08/15/20 08/15/20 05:45 06:00 06:15 Temperature Pulse Rate 88 88 91 H Pulse Rate [ From Monitor] Respiratory 16 19 17 Rate Blood Pressure 141/76 157/74 157/74 O2 Sat by Pulse 90 88 90 Oximetry 08/15/20 08/15/20 08/15/20 06:30 06:45 07:00 Temperature Pulse Rate 92 H 91 H 89 Pulse Rate [ From Monitor] Respiratory 17 21 15 Rate Blood Pressure 150/74 150/74 142/70 O2 Sat by Pulse 88 89 91 Oximetry 08/15/20 08/15/20 08/15/20 07:12 07:15 07:30 Temperature Pulse Rate 94 H 94 H 100 H Pulse Rate [ From Monitor] Respiratory 16 29 H Rate Blood Pressure 142/70 142/70 146/73 O2 Sat by Pulse 93 89 93 Oximetry 08/15/20 08/15/20 08/15/20 07:45 08:00 08:15 Temperature 97.9 F Pulse Rate 99 H 102 H 101 H Pulse Rate [ 93 H From Monitor] Respiratory 16 17 16 Rate Blood Pressure 146/73 146/75 146/75 O2 Sat by Pulse 92 91 92 Oximetry 08/15/20 08/15/20 08/15/20 08:30 08:45 09:00 Temperature Pulse Rate 104 H 104 H 103 H Pulse Rate [ From Monitor] Respiratory 18 27 H 29 H Rate Blood Pressure 148/79 148/79 147/77 O2 Sat by Pulse 88 89 89 Oximetry 08/15/20 08/15/20 08/15/20 09:15 09:30 09:45 Temperature Pulse Rate 104 H 108 H 107 H Pulse Rate [ From Monitor] Respiratory 26 H 25 H 31 H Rate Blood Pressure 147/77 153/83 153/83 O2 Sat by Pulse 90 90 94 Oximetry 08/15/20 08/15/20 08/15/20 10:00 10:15 10:30 Temperature Pulse Rate 105 H 108 H 104 H Pulse Rate [ From Monitor] Respiratory 34 H 32 H 26 H Rate Blood Pressure 154/83 154/83 167/90 O2 Sat by Pulse 92 90 85 Oximetry 08/15/20 08/15/20 10:45 11:00 Temperature Pulse Rate 103 H 120 H Pulse Rate [ From Monitor] Respiratory 30 H 28 H Rate Blood Pressure 167/90 170/90 O2 Sat by Pulse 86 96 Oximetry Constitutional: other (orally intubated on vent) Eyes: non-icteric ENT: oropharynx moist Neck: supple Ascultation: Bilateral: diminished breath sounds, rhonchi, other (coarse BS bilaterally) Cardiovascular: regular rate and rhythm, other (tachycardia) Gastrointestinal: normoactive bowel sounds, soft, non-tender, non-distended Integumentary: normal Extremities: no cyanosis Neurologic: other (sedated) Psychiatric: other (sedated) CBC and BMP: 08/15/20 Unknown 08/15/20 Unknown ABG, PT/INR, D-dimer: ABG ABG pH 7.351 (7.320-7.450) 08/15/20 04:03 POC ABG pCO2 67.3 mmHg (32.0-48.0) H 08/15/20 04:03 POC ABG pO2 68.7 mmHg (83-108) L 08/15/20 04:03 POC ABG HCO3 36.4 08/15/20 04:03 PT/INR, D-dimer PT 13.7 Sec. (12.2-14.9) 07/18/20 04:31 INR 1.06 (0.87-1.13) 07/18/20 04:31 D-Dimer 5413.39 ng/mlDDU (0-234) H 08/12/20 08:32 Abnormal lab findings: Abnormal Labs 07/17/20 07/17/20 07/17/20 17:30 17:30 22:48 WBC RBC Hgb Hct MCV MCH MCHC 35 H RDW Plt Count Lymph % (Auto) 10.5 L Lymph # (Auto) 0.7 L Seg Neutrophils % 85.3 H Lymphocytes % (Manual) Seg Neutrophils # Seg Neutrophils # Man Lymphocytes # (Manual) D-Dimer 314.21 H ABG pH POC ABG pCO2 POC ABG pO2 ABG Hemoglobin ABG Oxyhemoglobin ABG Sodium ABG Potassium ABG Chloride ABG Glucose Sodium Potassium Chloride Carbon Dioxide BUN 1 L Creatinine Glucose 154 H POC Glucose Calcium Magnesium Ferritin Alkaline Phosphatase Lactate Dehydrogenase Total Creatine Kinase CK-MB (CK-2) C-Reactive Protein Total Protein Albumin Triglycerides Arterial Blood Glucose Arterial Blood Ionized Calcium Coronavirus (PCR) SARS-CoV-2 IgG Ab 07/17/20 07/17/20 07/18/20 22:48 22:48 04:31 WBC RBC Hgb Hct MCV MCH 33 H MCHC 35 H RDW 13.1 L Plt Count Lymph % (Auto) Lymph # (Auto) Seg Neutrophils % Lymphocytes % (Manual) 5.0 L Seg Neutrophils # Seg Neutrophils # Man 8.1 H Lymphocytes # (Manual) 0.4 L D-Dimer ABG pH POC ABG pCO2 POC ABG pO2 ABG Hemoglobin ABG Oxyhemoglobin ABG Sodium ABG Potassium ABG Chloride ABG Glucose Sodium Potassium Chloride Carbon Dioxide BUN Creatinine Glucose 124 H POC Glucose Calcium Magnesium Ferritin 889.3 H Alkaline Phosphatase Lactate Dehydrogenase 832 H Total Creatine Kinase CK-MB (CK-2) C-Reactive Protein 17.70 H Total Protein Albumin Triglycerides Arterial Blood Glucose Arterial Blood Ionized Calcium Coronavirus (PCR) SARS-CoV-2 IgG Ab 07/18/20 07/18/20 07/18/20 04:31 08:50 18:48 WBC RBC Hgb Hct MCV MCH MCHC RDW Plt Count Lymph % (Auto) Lymph # (Auto) Seg Neutrophils % Lymphocytes % (Manual) Seg Neutrophils # Seg Neutrophils # Man Lymphocytes # (Manual) D-Dimer 275.27 H ABG pH POC ABG pCO2 POC ABG pO2 ABG Hemoglobin ABG Oxyhemoglobin ABG Sodium ABG Potassium ABG Chloride ABG Glucose Sodium Potassium Chloride Carbon Dioxide 31 H D BUN 23 H Creatinine Glucose 143 H POC Glucose Calcium Magnesium Ferritin Alkaline Phosphatase Lactate Dehydrogenase Total Creatine Kinase CK-MB (CK-2) C-Reactive Protein Total Protein Albumin Triglycerides Arterial Blood Glucose Arterial Blood Ionized Calcium Coronavirus (PCR) Positive A SARS-CoV-2 IgG Ab 07/18/20 07/18/20 07/20/20 18:48 18:48 08:56 WBC RBC Hgb Hct MCV MCH MCHC RDW Plt Count Lymph % (Auto) Lymph # (Auto) Seg Neutrophils % Lymphocytes % (Manual) Seg Neutrophils # Seg Neutrophils # Man Lymphocytes # (Manual) D-Dimer ABG pH POC ABG pCO2 POC ABG pO2 ABG Hemoglobin ABG Oxyhemoglobin ABG Sodium ABG Potassium ABG Chloride ABG Glucose Sodium Potassium Chloride Carbon Dioxide BUN 22 H Creatinine Glucose 219 H POC Glucose Calcium Magnesium Ferritin 1164.0 H Alkaline Phosphatase Lactate Dehydrogenase 560 H 739 H Total Creatine Kinase CK-MB (CK-2) C-Reactive Protein 18.00 H 17.50 H Total Protein Albumin 3.0 L Triglycerides Arterial Blood Glucose Arterial Blood Ionized Calcium Coronavirus (PCR) SARS-CoV-2 IgG Ab 07/20/20 07/20/20 07/21/20 08:56 08:56 05:24 WBC RBC Hgb Hct MCV MCH MCHC RDW Plt Count Lymph % (Auto) Lymph # (Auto) Seg Neutrophils % Lymphocytes % (Manual) Seg Neutrophils # Seg Neutrophils # Man Lymphocytes # (Manual) D-Dimer 9523.70 H ABG pH POC ABG pCO2 POC ABG pO2 ABG Hemoglobin ABG Oxyhemoglobin ABG Sodium ABG Potassium ABG Chloride ABG Glucose Sodium Potassium Chloride Carbon Dioxide BUN Creatinine Glucose POC Glucose Calcium Magnesium Ferritin 1581.0 H Alkaline Phosphatase Lactate Dehydrogenase Total Creatine Kinase CK-MB (CK-2) C-Reactive Protein Total Protein Albumin Triglycerides Arterial Blood Glucose Arterial Blood Ionized Calcium Coronavirus (PCR) SARS-CoV-2 IgG Ab Reactive A 07/22/20 07/24/20 07/26/20 04:31 13:26 10:07 WBC RBC Hgb Hct MCV MCH MCHC RDW Plt Count Lymph % (Auto) Lymph # (Auto) Seg Neutrophils % Lymphocytes % (Manual) Seg Neutrophils # Seg Neutrophils # Man Lymphocytes # (Manual) D-Dimer > 42405 H ABG pH POC ABG pCO2 POC ABG pO2 ABG Hemoglobin ABG Oxyhemoglobin ABG Sodium ABG Potassium ABG Chloride ABG Glucose Sodium 146 H Potassium Chloride Carbon Dioxide 32 H BUN 28 H 26 H Creatinine Glucose 144 H 116 H POC Glucose Calcium 8.3 L Magnesium Ferritin Alkaline Phosphatase Lactate Dehydrogenase Total Creatine Kinase CK-MB (CK-2) C-Reactive Protein Total Protein Albumin 3.3 L Triglycerides Arterial Blood Glucose Arterial Blood Ionized Calcium Coronavirus (PCR) SARS-CoV-2 IgG Ab 07/26/20 07/26/20 07/27/20 10:07 10:07 19:45 WBC RBC Hgb Hct MCV MCH MCHC RDW Plt Count Lymph % (Auto) Lymph # (Auto) Seg Neutrophils % Lymphocytes % (Manual) Seg Neutrophils # Seg Neutrophils # Man Lymphocytes # (Manual) D-Dimer ABG pH POC ABG pCO2 POC ABG pO2 ABG Hemoglobin ABG Oxyhemoglobin ABG Sodium ABG Potassium ABG Chloride ABG Glucose Sodium Potassium Chloride 97.4 L Carbon Dioxide 33 H BUN 27 H Creatinine Glucose 175 H POC Glucose Calcium Magnesium Ferritin 1079.0 H Alkaline Phosphatase Lactate Dehydrogenase 708 H Total Creatine Kinase CK-MB (CK-2) C-Reactive Protein 6.10 H Total Protein Albumin Triglycerides Arterial Blood Glucose Arterial Blood Ionized Calcium Coronavirus (PCR) SARS-CoV-2 IgG Ab 07/29/20 07/30/20 07/30/20 02:09 10:33 11:54 WBC RBC Hgb Hct MCV MCH MCHC RDW Plt Count Lymph % (Auto) Lymph # (Auto) Seg Neutrophils % Lymphocytes % (Manual) Seg Neutrophils # Seg Neutrophils # Man Lymphocytes # (Manual) D-Dimer ABG pH POC ABG pCO2 POC ABG pO2 ABG Hemoglobin ABG Oxyhemoglobin ABG Sodium ABG Potassium ABG Chloride ABG Glucose Sodium Potassium Chloride Carbon Dioxide BUN Creatinine Glucose POC Glucose 183 H Calcium Magnesium 3.00 H Ferritin Alkaline Phosphatase Lactate Dehydrogenase Total Creatine Kinase 174 H CK-MB (CK-2) 4.5 H C-Reactive Protein Total Protein Albumin Triglycerides Arterial Blood Glucose Arterial Blood Ionized Calcium Coronavirus (PCR) SARS-CoV-2 IgG Ab 07/30/20 07/30/20 07/31/20 17:30 23:08 11:04 WBC RBC Hgb Hct MCV MCH MCHC RDW Plt Count Lymph % (Auto) Lymph # (Auto) Seg Neutrophils % Lymphocytes % (Manual) Seg Neutrophils # Seg Neutrophils # Man Lymphocytes # (Manual) D-Dimer ABG pH POC ABG pCO2 POC ABG pO2 ABG Hemoglobin ABG Oxyhemoglobin ABG Sodium ABG Potassium ABG Chloride ABG Glucose Sodium 151 H D Potassium Chloride 109.2 H Carbon Dioxide 32 H BUN 48 H Creatinine Glucose 165 H POC Glucose 199 H 194 H Calcium Magnesium Ferritin Alkaline Phosphatase 168 H Lactate Dehydrogenase Total Creatine Kinase CK-MB (CK-2) C-Reactive Protein Total Protein Albumin 3.1 L Triglycerides Arterial Blood Glucose Arterial Blood Ionized Calcium Coronavirus (PCR) SARS-CoV-2 IgG Ab 07/31/20 07/31/20 07/31/20 11:18 11:23 17:47 WBC RBC Hgb Hct MCV MCH MCHC RDW Plt Count Lymph % (Auto) Lymph # (Auto) Seg Neutrophils % Lymphocytes % (Manual) Seg Neutrophils # Seg Neutrophils # Man Lymphocytes # (Manual) D-Dimer ABG pH POC ABG pCO2 56.6 H POC ABG pO2 73.1 L ABG Hemoglobin ABG Oxyhemoglobin 92.1 L ABG Sodium ABG Potassium ABG Chloride 108.0 H ABG Glucose 169 H Sodium Potassium Chloride Carbon Dioxide BUN Creatinine Glucose POC Glucose 156 H 169 H Calcium Magnesium Ferritin Alkaline Phosphatase Lactate Dehydrogenase Total Creatine Kinase CK-MB (CK-2) C-Reactive Protein Total Protein Albumin Triglycerides Arterial Blood Glucose 169 H Arterial Blood Ionized Calcium Coronavirus (PCR) SARS-CoV-2 IgG Ab 07/31/20 07/31/20 07/31/20 20:58 23:18 23:55 WBC 19.8 H RBC Hgb Hct MCV 95 H MCH MCHC RDW 13.0 L Plt Count Lymph % (Auto) Lymph # (Auto) Seg Neutrophils % Lymphocytes % (Manual) Seg Neutrophils # Seg Neutrophils # Man Lymphocytes # (Manual) D-Dimer ABG pH POC ABG pCO2 POC ABG pO2 ABG Hemoglobin ABG Oxyhemoglobin ABG Sodium ABG Potassium ABG Chloride ABG Glucose Sodium Potassium Chloride Carbon Dioxide BUN Creatinine Glucose POC Glucose 293 H 211 H Calcium Magnesium Ferritin Alkaline Phosphatase Lactate Dehydrogenase Total Creatine Kinase CK-MB (CK-2) C-Reactive Protein Total Protein Albumin Triglycerides Arterial Blood Glucose Arterial Blood Ionized Calcium Coronavirus (PCR) SARS-CoV-2 IgG Ab 08/01/20 08/01/20 08/01/20 03:47 08:30 12:27 WBC RBC Hgb Hct MCV MCH MCHC RDW Plt Count Lymph % (Auto) Lymph # (Auto) Seg Neutrophils % Lymphocytes % (Manual) Seg Neutrophils # Seg Neutrophils # Man Lymphocytes # (Manual) D-Dimer ABG pH POC ABG pCO2 49.8 H POC ABG pO2 123.4 H ABG Hemoglobin ABG Oxyhemoglobin ABG Sodium ABG Potassium 4.6 H ABG Chloride 111.0 H ABG Glucose 130 H Sodium 154 H Potassium Chloride 115.1 H Carbon Dioxide 32 H BUN 49 H Creatinine Glucose 492 H POC Glucose 161 H Calcium 7.2 L D Magnesium Ferritin Alkaline Phosphatase Lactate Dehydrogenase Total Creatine Kinase CK-MB (CK-2) C-Reactive Protein Total Protein Albumin Triglycerides Arterial Blood Glucose 130 H Arterial Blood Ionized Calcium 4.5 L Coronavirus (PCR) SARS-CoV-2 IgG Ab 08/01/20 08/01/20 08/02/20 16:55 23:06 05:00 WBC RBC Hgb Hct MCV MCH MCHC RDW Plt Count Lymph % (Auto) Lymph # (Auto) Seg Neutrophils % Lymphocytes % (Manual) Seg Neutrophils # Seg Neutrophils # Man Lymphocytes # (Manual) D-Dimer ABG pH POC ABG pCO2 52.5 H POC ABG pO2 69.8 L ABG Hemoglobin ABG Oxyhemoglobin ABG Sodium 147.2 H ABG Potassium ABG Chloride 110.0 H ABG Glucose 177 H Sodium Potassium Chloride Carbon Dioxide BUN Creatinine Glucose POC Glucose 195 H 162 H Calcium Magnesium Ferritin Alkaline Phosphatase Lactate Dehydrogenase Total Creatine Kinase CK-MB (CK-2) C-Reactive Protein Total Protein Albumin Triglycerides Arterial Blood Glucose 177 H Arterial Blood Ionized Calcium Coronavirus (PCR) SARS-CoV-2 IgG Ab 08/02/20 08/02/20 08/02/20 05:01 12:05 17:13 WBC RBC Hgb Hct MCV MCH MCHC RDW Plt Count Lymph % (Auto) Lymph # (Auto) Seg Neutrophils % Lymphocytes % (Manual) Seg Neutrophils # Seg Neutrophils # Man Lymphocytes # (Manual) D-Dimer ABG pH POC ABG pCO2 POC ABG pO2 ABG Hemoglobin ABG Oxyhemoglobin ABG Sodium ABG Potassium ABG Chloride ABG Glucose Sodium Potassium Chloride Carbon Dioxide BUN Creatinine Glucose POC Glucose 146 H 166 H 209 H Calcium Magnesium Ferritin Alkaline Phosphatase Lactate Dehydrogenase Total Creatine Kinase CK-MB (CK-2) C-Reactive Protein Total Protein Albumin Triglycerides Arterial Blood Glucose Arterial Blood Ionized Calcium Coronavirus (PCR) SARS-CoV-2 IgG Ab 08/02/20 08/03/20 08/03/20 23:26 04:06 04:34 WBC RBC Hgb Hct MCV MCH MCHC RDW Plt Count Lymph % (Auto) Lymph # (Auto) Seg Neutrophils % Lymphocytes % (Manual) Seg Neutrophils # Seg Neutrophils # Man Lymphocytes # (Manual) D-Dimer ABG pH POC ABG pCO2 55.6 H POC ABG pO2 66.1 L ABG Hemoglobin 11.9 L ABG Oxyhemoglobin 91.1 L ABG Sodium 145.7 H ABG Potassium 4.8 H ABG Chloride 111.0 H ABG Glucose 195 H Sodium Potassium Chloride Carbon Dioxide BUN Creatinine Glucose POC Glucose 157 H Calcium Magnesium Ferritin Alkaline Phosphatase Lactate Dehydrogenase Total Creatine Kinase CK-MB (CK-2) C-Reactive Protein Total Protein Albumin Triglycerides 207 H Arterial Blood Glucose 195 H Arterial Blood Ionized Calcium Coronavirus (PCR) SARS-CoV-2 IgG Ab 08/03/20 08/03/20 08/03/20 05:00 11:55 17:15 WBC RBC Hgb Hct MCV MCH MCHC RDW Plt Count Lymph % (Auto) Lymph # (Auto) Seg Neutrophils % Lymphocytes % (Manual) Seg Neutrophils # Seg Neutrophils # Man Lymphocytes # (Manual) D-Dimer ABG pH POC ABG pCO2 POC ABG pO2 ABG Hemoglobin ABG Oxyhemoglobin ABG Sodium ABG Potassium ABG Chloride ABG Glucose Sodium Potassium Chloride Carbon Dioxide BUN Creatinine Glucose POC Glucose 179 H 173 H 217 H Calcium Magnesium Ferritin Alkaline Phosphatase Lactate Dehydrogenase Total Creatine Kinase CK-MB (CK-2) C-Reactive Protein Total Protein Albumin Triglycerides Arterial Blood Glucose Arterial Blood Ionized Calcium Coronavirus (PCR) SARS-CoV-2 IgG Ab 08/03/20 08/04/20 08/04/20 23:01 03:59 05:30 WBC RBC Hgb Hct MCV MCH MCHC RDW Plt Count Lymph % (Auto) Lymph # (Auto) Seg Neutrophils % Lymphocytes % (Manual) Seg Neutrophils # Seg Neutrophils # Man Lymphocytes # (Manual) D-Dimer ABG pH POC ABG pCO2 54.6 H POC ABG pO2 66.2 L ABG Hemoglobin 10.8 L ABG Oxyhemoglobin 91.5 L ABG Sodium ABG Potassium ABG Chloride 110.0 H ABG Glucose 201 H Sodium Potassium Chloride Carbon Dioxide BUN Creatinine Glucose POC Glucose 222 H 137 H Calcium Magnesium Ferritin Alkaline Phosphatase Lactate Dehydrogenase Total Creatine Kinase CK-MB (CK-2) C-Reactive Protein Total Protein Albumin Triglycerides Arterial Blood Glucose 201 H Arterial Blood Ionized Calcium Coronavirus (PCR) SARS-CoV-2 IgG Ab 08/04/20 08/04/20 08/04/20 06:57 11:50 17:29 WBC RBC Hgb Hct MCV MCH MCHC RDW Plt Count Lymph % (Auto) Lymph # (Auto) Seg Neutrophils % Lymphocytes % (Manual) Seg Neutrophils # Seg Neutrophils # Man Lymphocytes # (Manual) D-Dimer ABG pH POC ABG pCO2 POC ABG pO2 ABG Hemoglobin ABG Oxyhemoglobin ABG Sodium ABG Potassium ABG Chloride ABG Glucose Sodium 151 H Potassium Chloride 111.3 H Carbon Dioxide 36 H BUN 32 H Creatinine Glucose 160 H POC Glucose 158 H 180 H Calcium 8.2 L Magnesium 2.60 H Ferritin Alkaline Phosphatase Lactate Dehydrogenase Total Creatine Kinase CK-MB (CK-2) C-Reactive Protein Total Protein Albumin Triglycerides Arterial Blood Glucose Arterial Blood Ionized Calcium Coronavirus (PCR) SARS-CoV-2 IgG Ab 08/04/20 08/05/20 08/05/20 23:01 04:49 05:11 WBC RBC Hgb Hct MCV MCH MCHC RDW Plt Count Lymph % (Auto) Lymph # (Auto) Seg Neutrophils % Lymphocytes % (Manual) Seg Neutrophils # Seg Neutrophils # Man Lymphocytes # (Manual) D-Dimer ABG pH POC ABG pCO2 56.7 H POC ABG pO2 80.6 L ABG Hemoglobin 10.9 L ABG Oxyhemoglobin ABG Sodium 145.9 H ABG Potassium ABG Chloride 109.0 H ABG Glucose 160 H Sodium Potassium Chloride Carbon Dioxide BUN Creatinine Glucose POC Glucose 160 H 134 H Calcium Magnesium Ferritin Alkaline Phosphatase Lactate Dehydrogenase Total Creatine Kinase CK-MB (CK-2) C-Reactive Protein Total Protein Albumin Triglycerides Arterial Blood Glucose 160 H Arterial Blood Ionized Calcium Coronavirus (PCR) SARS-CoV-2 IgG Ab 08/05/20 08/05/20 08/05/20 11:40 16:54 23:29 WBC RBC Hgb Hct MCV MCH MCHC RDW Plt Count Lymph % (Auto) Lymph # (Auto) Seg Neutrophils % Lymphocytes % (Manual) Seg Neutrophils # Seg Neutrophils # Man Lymphocytes # (Manual) D-Dimer ABG pH POC ABG pCO2 POC ABG pO2 ABG Hemoglobin ABG Oxyhemoglobin ABG Sodium ABG Potassium ABG Chloride ABG Glucose Sodium Potassium Chloride Carbon Dioxide BUN Creatinine Glucose POC Glucose 137 H 243 H 154 H Calcium Magnesium Ferritin Alkaline Phosphatase Lactate Dehydrogenase Total Creatine Kinase CK-MB (CK-2) C-Reactive Protein Total Protein Albumin Triglycerides Arterial Blood Glucose Arterial Blood Ionized Calcium Coronavirus (PCR) SARS-CoV-2 IgG Ab 08/06/20 08/06/20 08/06/20 05:24 06:00 08:59 WBC 14.1 H RBC Hgb 11.5 L Hct MCV 98 H MCH MCHC RDW Plt Count 107 L Lymph % (Auto) Lymph # (Auto) Seg Neutrophils % Lymphocytes % (Manual) Seg Neutrophils # Seg Neutrophils # Man Lymphocytes # (Manual) D-Dimer ABG pH POC ABG pCO2 58.9 H POC ABG pO2 53.0 L ABG Hemoglobin ABG Oxyhemoglobin 85.7 L ABG Sodium 148.4 H ABG Potassium 4.7 H ABG Chloride 109.0 H ABG Glucose 125 H Sodium Potassium Chloride Carbon Dioxide BUN Creatinine Glucose POC Glucose 122 H Calcium Magnesium Ferritin Alkaline Phosphatase Lactate Dehydrogenase Total Creatine Kinase CK-MB (CK-2) C-Reactive Protein Total Protein Albumin Triglycerides Arterial Blood Glucose 125 H Arterial Blood Ionized Calcium Coronavirus (PCR) SARS-CoV-2 IgG Ab 08/06/20 08/06/20 08/06/20 08:59 12:34 17:43 WBC RBC Hgb Hct MCV MCH MCHC RDW Plt Count Lymph % (Auto) Lymph # (Auto) Seg Neutrophils % Lymphocytes % (Manual) Seg Neutrophils # Seg Neutrophils # Man Lymphocytes # (Manual) D-Dimer ABG pH POC ABG pCO2 POC ABG pO2 ABG Hemoglobin ABG Oxyhemoglobin ABG Sodium ABG Potassium ABG Chloride ABG Glucose Sodium 151 H Potassium Chloride 110.7 H Carbon Dioxide 36 H BUN 29 H Creatinine 0.7 L Glucose 194 H POC Glucose 193 H 204 H Calcium Magnesium Ferritin Alkaline Phosphatase Lactate Dehydrogenase Total Creatine Kinase CK-MB (CK-2) C-Reactive Protein Total Protein Albumin Triglycerides Arterial Blood Glucose Arterial Blood Ionized Calcium Coronavirus (PCR) SARS-CoV-2 IgG Ab 08/06/20 08/07/20 08/07/20 23:25 04:00 04:00 WBC RBC 3.59 L Hgb 11.3 L Hct 35.0 L MCV 97 H MCH MCHC RDW Plt Count 103 L Lymph % (Auto) 11.5 L Lymph # (Auto) Seg Neutrophils % 82.9 H Lymphocytes % (Manual) Seg Neutrophils # 9.0 H Seg Neutrophils # Man Lymphocytes # (Manual) D-Dimer ABG pH POC ABG pCO2 POC ABG pO2 ABG Hemoglobin ABG Oxyhemoglobin ABG Sodium ABG Potassium ABG Chloride ABG Glucose Sodium 151 H Potassium Chloride 109.6 H Carbon Dioxide 34 H BUN 29 H Creatinine 0.5 L Glucose 134 H POC Glucose 150 H Calcium Magnesium Ferritin Alkaline Phosphatase Lactate Dehydrogenase Total Creatine Kinase CK-MB (CK-2) C-Reactive Protein Total Protein 5.4 L Albumin 2.8 L Triglycerides Arterial Blood Glucose Arterial Blood Ionized Calcium Coronavirus (PCR) SARS-CoV-2 IgG Ab 08/07/20 08/07/20 08/07/20 04:00 04:55 05:16 WBC RBC Hgb Hct MCV MCH MCHC RDW Plt Count Lymph % (Auto) Lymph # (Auto) Seg Neutrophils % Lymphocytes % (Manual) Seg Neutrophils # Seg Neutrophils # Man Lymphocytes # (Manual) D-Dimer ABG pH POC ABG pCO2 62.8 H POC ABG pO2 75.0 L ABG Hemoglobin 11.9 L ABG Oxyhemoglobin 93.2 L ABG Sodium 148.2 H ABG Potassium ABG Chloride 108.0 H ABG Glucose 150 H Sodium Potassium Chloride Carbon Dioxide BUN Creatinine Glucose POC Glucose 116 H Calcium Magnesium Ferritin Alkaline Phosphatase Lactate Dehydrogenase Total Creatine Kinase CK-MB (CK-2) C-Reactive Protein Total Protein Albumin Triglycerides 250 H Arterial Blood Glucose 150 H Arterial Blood Ionized Calcium Coronavirus (PCR) SARS-CoV-2 IgG Ab 08/07/20 08/07/20 08/07/20 12:36 17:46 23:09 WBC RBC Hgb Hct MCV MCH MCHC RDW Plt Count Lymph % (Auto) Lymph # (Auto) Seg Neutrophils % Lymphocytes % (Manual) Seg Neutrophils # Seg Neutrophils # Man Lymphocytes # (Manual) D-Dimer ABG pH POC ABG pCO2 POC ABG pO2 ABG Hemoglobin ABG Oxyhemoglobin ABG Sodium ABG Potassium ABG Chloride ABG Glucose Sodium Potassium Chloride Carbon Dioxide BUN Creatinine Glucose POC Glucose 160 H 168 H 111 H Calcium Magnesium Ferritin Alkaline Phosphatase Lactate Dehydrogenase Total Creatine Kinase CK-MB (CK-2) C-Reactive Protein Total Protein Albumin Triglycerides Arterial Blood Glucose Arterial Blood Ionized Calcium Coronavirus (PCR) SARS-CoV-2 IgG Ab 08/08/20 08/08/20 08/08/20 04:41 05:13 11:57 WBC RBC Hgb Hct MCV MCH MCHC RDW Plt Count Lymph % (Auto) Lymph # (Auto) Seg Neutrophils % Lymphocytes % (Manual) Seg Neutrophils # Seg Neutrophils # Man Lymphocytes # (Manual) D-Dimer ABG pH POC ABG pCO2 63.1 H POC ABG pO2 70.7 L ABG Hemoglobin 11.5 L ABG Oxyhemoglobin 91.0 L ABG Sodium 148.5 H ABG Potassium ABG Chloride 108.0 H ABG Glucose 102 H Sodium Potassium Chloride Carbon Dioxide BUN Creatinine Glucose POC Glucose 122 H 225 H Calcium Magnesium Ferritin Alkaline Phosphatase Lactate Dehydrogenase Total Creatine Kinase CK-MB (CK-2) C-Reactive Protein Total Protein Albumin Triglycerides Arterial Blood Glucose 102 H Arterial Blood Ionized Calcium Coronavirus (PCR) SARS-CoV-2 IgG Ab 08/08/20 08/08/20 08/09/20 17:16 23:06 05:22 WBC RBC Hgb Hct MCV MCH MCHC RDW Plt Count Lymph % (Auto) Lymph # (Auto) Seg Neutrophils % Lymphocytes % (Manual) Seg Neutrophils # Seg Neutrophils # Man Lymphocytes # (Manual) D-Dimer ABG pH POC ABG pCO2 POC ABG pO2 ABG Hemoglobin ABG Oxyhemoglobin ABG Sodium ABG Potassium ABG Chloride ABG Glucose Sodium Potassium Chloride Carbon Dioxide BUN Creatinine Glucose POC Glucose 188 H 129 H 112 H Calcium Magnesium Ferritin Alkaline Phosphatase Lactate Dehydrogenase Total Creatine Kinase CK-MB (CK-2) C-Reactive Protein Total Protein Albumin Triglycerides Arterial Blood Glucose Arterial Blood Ionized Calcium Coronavirus (PCR) SARS-CoV-2 IgG Ab 08/09/20 08/09/20 08/09/20 05:44 06:49 11:56 WBC RBC Hgb Hct MCV MCH MCHC RDW Plt Count Lymph % (Auto) Lymph # (Auto) Seg Neutrophils % Lymphocytes % (Manual) Seg Neutrophils # Seg Neutrophils # Man Lymphocytes # (Manual) D-Dimer ABG pH POC ABG pCO2 67.9 H POC ABG pO2 73.4 L ABG Hemoglobin 10.8 L ABG Oxyhemoglobin 92.7 L ABG Sodium 146.4 H ABG Potassium ABG Chloride ABG Glucose 165 H Sodium 151 H Potassium Chloride 108.8 H Carbon Dioxide 39 H BUN 32 H Creatinine 0.6 L Glucose 189 H POC Glucose 217 H Calcium 8.1 L Magnesium Ferritin Alkaline Phosphatase Lactate Dehydrogenase Total Creatine Kinase CK-MB (CK-2) C-Reactive Protein Total Protein Albumin Triglycerides Arterial Blood Glucose 165 H Arterial Blood Ionized Calcium Coronavirus (PCR) SARS-CoV-2 IgG Ab 08/09/20 08/09/20 08/10/20 17:01 23:35 05:00 WBC RBC Hgb Hct MCV MCH MCHC RDW Plt Count Lymph % (Auto) Lymph # (Auto) Seg Neutrophils % Lymphocytes % (Manual) Seg Neutrophils # Seg Neutrophils # Man Lymphocytes # (Manual) D-Dimer ABG pH POC ABG pCO2 POC ABG pO2 ABG Hemoglobin ABG Oxyhemoglobin ABG Sodium ABG Potassium ABG Chloride ABG Glucose Sodium 125 L D Potassium 3.5 L Chloride 88.7 L Carbon Dioxide 35 H BUN 25 H Creatinine 0.5 L Glucose 465 H POC Glucose 172 H 125 H Calcium 6.3 L D Magnesium Ferritin Alkaline Phosphatase Lactate Dehydrogenase Total Creatine Kinase CK-MB (CK-2) C-Reactive Protein Total Protein Albumin Triglycerides 1175 H Arterial Blood Glucose Arterial Blood Ionized Calcium Coronavirus (PCR) SARS-CoV-2 IgG Ab 08/10/20 08/10/20 08/10/20 05:09 05:24 08:00 WBC RBC Hgb Hct MCV MCH MCHC RDW Plt Count Lymph % (Auto) Lymph # (Auto) Seg Neutrophils % Lymphocytes % (Manual) Seg Neutrophils # Seg Neutrophils # Man Lymphocytes # (Manual) D-Dimer ABG pH 7.306 L POC ABG pCO2 75.1 H POC ABG pO2 76.1 L ABG Hemoglobin 10.7 L ABG Oxyhemoglobin ABG Sodium ABG Potassium ABG Chloride ABG Glucose 177 H Sodium 131 L Potassium Chloride 93.0 L Carbon Dioxide 35 H BUN 28 H Creatinine 0.6 L Glucose 433 H POC Glucose 161 H Calcium 6.6 L Magnesium Ferritin Alkaline Phosphatase Lactate Dehydrogenase Total Creatine Kinase CK-MB (CK-2) C-Reactive Protein Total Protein Albumin Triglycerides 869 H Arterial Blood Glucose 177 H Arterial Blood Ionized Calcium Coronavirus (PCR) SARS-CoV-2 IgG Ab 08/10/20 08/10/20 08/10/20 11:15 13:23 13:23 WBC RBC 3.18 L Hgb 10.1 L Hct 31.3 L MCV 98 H MCH MCHC RDW Plt Count 123 L Lymph % (Auto) Lymph # (Auto) Seg Neutrophils % Lymphocytes % (Manual) Seg Neutrophils # Seg Neutrophils # Man Lymphocytes # (Manual) D-Dimer ABG pH POC ABG pCO2 POC ABG pO2 ABG Hemoglobin ABG Oxyhemoglobin ABG Sodium ABG Potassium ABG Chloride ABG Glucose Sodium Potassium Chloride Carbon Dioxide 37 H BUN 29 H Creatinine 0.6 L Glucose 313 H POC Glucose 246 H Calcium 7.4 L Magnesium Ferritin Alkaline Phosphatase Lactate Dehydrogenase Total Creatine Kinase CK-MB (CK-2) C-Reactive Protein Total Protein Albumin Triglycerides Arterial Blood Glucose Arterial Blood Ionized Calcium Coronavirus (PCR) SARS-CoV-2 IgG Ab 08/10/20 08/10/20 08/10/20 13:23 16:43 23:20 WBC RBC Hgb Hct MCV MCH MCHC RDW Plt Count Lymph % (Auto) Lymph # (Auto) Seg Neutrophils % Lymphocytes % (Manual) Seg Neutrophils # Seg Neutrophils # Man Lymphocytes # (Manual) D-Dimer ABG pH POC ABG pCO2 POC ABG pO2 ABG Hemoglobin ABG Oxyhemoglobin ABG Sodium ABG Potassium ABG Chloride ABG Glucose Sodium Potassium Chloride Carbon Dioxide BUN Creatinine Glucose POC Glucose 238 H 111 H Calcium Magnesium Ferritin Alkaline Phosphatase Lactate Dehydrogenase Total Creatine Kinase CK-MB (CK-2) C-Reactive Protein 22.70 H Total Protein Albumin Triglycerides Arterial Blood Glucose Arterial Blood Ionized Calcium Coronavirus (PCR) SARS-CoV-2 IgG Ab 08/11/20 08/11/20 08/11/20 04:33 05:19 09:00 WBC RBC Hgb Hct MCV MCH MCHC RDW Plt Count Lymph % (Auto) Lymph # (Auto) Seg Neutrophils % Lymphocytes % (Manual) Seg Neutrophils # Seg Neutrophils # Man Lymphocytes # (Manual) D-Dimer ABG pH POC ABG pCO2 66.9 H POC ABG pO2 65.2 L ABG Hemoglobin 10.5 L ABG Oxyhemoglobin 91.7 L ABG Sodium ABG Potassium ABG Chloride ABG Glucose 124 H Sodium Potassium Chloride Carbon Dioxide 41 H* BUN 30 H Creatinine 0.5 L Glucose 204 H POC Glucose 106 H Calcium 8.1 L Magnesium Ferritin Alkaline Phosphatase Lactate Dehydrogenase Total Creatine Kinase CK-MB (CK-2) C-Reactive Protein Total Protein Albumin Triglycerides Arterial Blood Glucose 124 H Arterial Blood Ionized Calcium 4.5 L Coronavirus (PCR) SARS-CoV-2 IgG Ab 08/11/20 08/11/20 08/11/20 09:00 12:08 17:01 WBC RBC 3.01 L Hgb 9.6 L Hct 29.2 L MCV 97 H MCH MCHC RDW Plt Count Lymph % (Auto) Lymph # (Auto) Seg Neutrophils % Lymphocytes % (Manual) Seg Neutrophils # Seg Neutrophils # Man Lymphocytes # (Manual) D-Dimer ABG pH POC ABG pCO2 POC ABG pO2 ABG Hemoglobin ABG Oxyhemoglobin ABG Sodium ABG Potassium ABG Chloride ABG Glucose Sodium Potassium Chloride Carbon Dioxide BUN Creatinine Glucose POC Glucose 201 H 150 H Calcium Magnesium Ferritin Alkaline Phosphatase Lactate Dehydrogenase Total Creatine Kinase CK-MB (CK-2) C-Reactive Protein Total Protein Albumin Triglycerides Arterial Blood Glucose Arterial Blood Ionized Calcium Coronavirus (PCR) SARS-CoV-2 IgG Ab 08/11/20 08/12/20 08/12/20 23:17 03:31 04:00 WBC RBC 2.98 L Hgb 9.4 L Hct 28.7 L MCV 97 H MCH MCHC RDW Plt Count Lymph % (Auto) Lymph # (Auto) Seg Neutrophils % Lymphocytes % (Manual) Seg Neutrophils # Seg Neutrophils # Man Lymphocytes # (Manual) D-Dimer ABG pH POC ABG pCO2 65.1 H POC ABG pO2 ABG Hemoglobin 9.9 L ABG Oxyhemoglobin ABG Sodium 145.6 H ABG Potassium ABG Chloride ABG Glucose 106 H Sodium Potassium Chloride Carbon Dioxide BUN Creatinine Glucose POC Glucose 128 H Calcium Magnesium Ferritin Alkaline Phosphatase Lactate Dehydrogenase Total Creatine Kinase CK-MB (CK-2) C-Reactive Protein Total Protein Albumin Triglycerides Arterial Blood Glucose 106 H Arterial Blood Ionized Calcium Coronavirus (PCR) SARS-CoV-2 IgG Ab 08/12/20 08/12/20 08/12/20 04:00 07:14 08:32 WBC RBC Hgb Hct MCV MCH MCHC RDW Plt Count Lymph % (Auto) Lymph # (Auto) Seg Neutrophils % Lymphocytes % (Manual) Seg Neutrophils # Seg Neutrophils # Man Lymphocytes # (Manual) D-Dimer 5413.39 H ABG pH POC ABG pCO2 POC ABG pO2 ABG Hemoglobin ABG Oxyhemoglobin ABG Sodium ABG Potassium ABG Chloride ABG Glucose Sodium 149 H 149 H Potassium Chloride Carbon Dioxide 39 H 39 H BUN 31 H 33 H Creatinine 0.5 L 0.5 L Glucose 173 H POC Glucose Calcium 8.0 L 8.1 L Magnesium Ferritin Alkaline Phosphatase Lactate Dehydrogenase Total Creatine Kinase CK-MB (CK-2) C-Reactive Protein Total Protein Albumin Triglycerides Arterial Blood Glucose Arterial Blood Ionized Calcium Coronavirus (PCR) SARS-CoV-2 IgG Ab 08/12/20 08/12/20 08/12/20 08:32 08:32 12:15 WBC RBC Hgb Hct MCV MCH MCHC RDW Plt Count Lymph % (Auto) Lymph # (Auto) Seg Neutrophils % Lymphocytes % (Manual) Seg Neutrophils # Seg Neutrophils # Man Lymphocytes # (Manual) D-Dimer ABG pH POC ABG pCO2 POC ABG pO2 ABG Hemoglobin ABG Oxyhemoglobin ABG Sodium ABG Potassium ABG Chloride ABG Glucose Sodium Potassium Chloride Carbon Dioxide BUN Creatinine Glucose POC Glucose 270 H Calcium Magnesium Ferritin 1401.0 H Alkaline Phosphatase Lactate Dehydrogenase 378 H Total Creatine Kinase CK-MB (CK-2) C-Reactive Protein 19.50 H Total Protein Albumin Triglycerides Arterial Blood Glucose Arterial Blood Ionized Calcium Coronavirus (PCR) SARS-CoV-2 IgG Ab 08/12/20 08/12/20 08/13/20 17:52 23:07 05:13 WBC RBC Hgb Hct MCV MCH MCHC RDW Plt Count Lymph % (Auto) Lymph # (Auto) Seg Neutrophils % Lymphocytes % (Manual) Seg Neutrophils # Seg Neutrophils # Man Lymphocytes # (Manual) D-Dimer ABG pH POC ABG pCO2 POC ABG pO2 ABG Hemoglobin ABG Oxyhemoglobin ABG Sodium ABG Potassium ABG Chloride ABG Glucose Sodium Potassium Chloride Carbon Dioxide BUN Creatinine Glucose POC Glucose 178 H 128 H 130 H Calcium Magnesium Ferritin Alkaline Phosphatase Lactate Dehydrogenase Total Creatine Kinase CK-MB (CK-2) C-Reactive Protein Total Protein Albumin Triglycerides Arterial Blood Glucose Arterial Blood Ionized Calcium Coronavirus (PCR) SARS-CoV-2 IgG Ab 08/13/20 08/13/20 08/13/20 06:30 12:08 14:12 WBC RBC Hgb Hct MCV MCH MCHC RDW Plt Count Lymph % (Auto) Lymph # (Auto) Seg Neutrophils % Lymphocytes % (Manual) Seg Neutrophils # Seg Neutrophils # Man Lymphocytes # (Manual) D-Dimer ABG pH 7.288 L POC ABG pCO2 81.8 H POC ABG pO2 ABG Hemoglobin 10.3 L ABG Oxyhemoglobin ABG Sodium 146.7 H ABG Potassium 5.3 H ABG Chloride ABG Glucose 278 H Sodium 148 H Potassium Chloride Carbon Dioxide 41 H* BUN 31 H Creatinine 0.5 L Glucose 145 H POC Glucose 205 H Calcium 8.2 L Magnesium Ferritin Alkaline Phosphatase Lactate Dehydrogenase Total Creatine Kinase CK-MB (CK-2) C-Reactive Protein Total Protein Albumin Triglycerides 167 H Arterial Blood Glucose 278 H Arterial Blood Ionized Calcium Coronavirus (PCR) SARS-CoV-2 IgG Ab 08/13/20 08/13/20 08/14/20 17:39 23:23 04:00 WBC RBC Hgb Hct MCV MCH MCHC RDW Plt Count Lymph % (Auto) Lymph # (Auto) Seg Neutrophils % Lymphocytes % (Manual) Seg Neutrophils # Seg Neutrophils # Man Lymphocytes # (Manual) D-Dimer ABG pH 7.318 L POC ABG pCO2 77.2 H POC ABG pO2 82.4 L ABG Hemoglobin 10.2 L ABG Oxyhemoglobin ABG Sodium 147.2 H ABG Potassium 4.6 H ABG Chloride ABG Glucose 212 H Sodium Potassium Chloride Carbon Dioxide BUN Creatinine Glucose POC Glucose 195 H 191 H Calcium Magnesium Ferritin Alkaline Phosphatase Lactate Dehydrogenase Total Creatine Kinase CK-MB (CK-2) C-Reactive Protein Total Protein Albumin Triglycerides Arterial Blood Glucose 212 H Arterial Blood Ionized Calcium Coronavirus (PCR) SARS-CoV-2 IgG Ab 08/14/20 08/14/20 08/14/20 05:00 05:13 08:50 WBC RBC 2.67 L Hgb 8.5 L Hct 26.6 L MCV 100 H MCH MCHC RDW Plt Count Lymph % (Auto) Lymph # (Auto) Seg Neutrophils % Lymphocytes % (Manual) Seg Neutrophils # Seg Neutrophils # Man Lymphocytes # (Manual) D-Dimer ABG pH POC ABG pCO2 POC ABG pO2 ABG Hemoglobin ABG Oxyhemoglobin ABG Sodium ABG Potassium ABG Chloride ABG Glucose Sodium 151 H Potassium Chloride Carbon Dioxide 43 H* BUN 41 H Creatinine 0.6 L Glucose 195 H POC Glucose 183 H Calcium 7.9 L Magnesium Ferritin Alkaline Phosphatase Lactate Dehydrogenase Total Creatine Kinase CK-MB (CK-2) C-Reactive Protein Total Protein Albumin Triglycerides Arterial Blood Glucose Arterial Blood Ionized Calcium Coronavirus (PCR) SARS-CoV-2 IgG Ab 08/14/20 08/14/20 08/14/20 11:32 17:50 23:39 WBC RBC Hgb Hct MCV MCH MCHC RDW Plt Count Lymph % (Auto) Lymph # (Auto) Seg Neutrophils % Lymphocytes % (Manual) Seg Neutrophils # Seg Neutrophils # Man Lymphocytes # (Manual) D-Dimer ABG pH POC ABG pCO2 POC ABG pO2 ABG Hemoglobin ABG Oxyhemoglobin ABG Sodium ABG Potassium ABG Chloride ABG Glucose Sodium Potassium Chloride Carbon Dioxide BUN Creatinine Glucose POC Glucose 147 H 244 H 138 H Calcium Magnesium Ferritin Alkaline Phosphatase Lactate Dehydrogenase Total Creatine Kinase CK-MB (CK-2) C-Reactive Protein Total Protein Albumin Triglycerides Arterial Blood Glucose Arterial Blood Ionized Calcium Coronavirus (PCR) SARS-CoV-2 IgG Ab 08/15/20 08/15/20 08/15/20 04:03 05:12 Unknown WBC 11.9 H RBC 2.70 L Hgb 8.5 L Hct 26.6 L MCV 99 H MCH MCHC RDW Plt Count Lymph % (Auto) Lymph # (Auto) Seg Neutrophils % Lymphocytes % (Manual) Seg Neutrophils # Seg Neutrophils # Man Lymphocytes # (Manual) D-Dimer ABG pH POC ABG pCO2 67.3 H POC ABG pO2 68.7 L ABG Hemoglobin 11.5 L ABG Oxyhemoglobin 91.5 L ABG Sodium ABG Potassium ABG Chloride ABG Glucose 172 H Sodium Potassium Chloride Carbon Dioxide BUN Creatinine Glucose POC Glucose 150 H Calcium Magnesium Ferritin Alkaline Phosphatase Lactate Dehydrogenase Total Creatine Kinase CK-MB (CK-2) C-Reactive Protein Total Protein Albumin Triglycerides Arterial Blood Glucose 172 H Arterial Blood Ionized Calcium Coronavirus (PCR) SARS-CoV-2 IgG Ab 08/15/20 Unknown WBC RBC Hgb Hct MCV MCH MCHC RDW Plt Count Lymph % (Auto) Lymph # (Auto) Seg Neutrophils % Lymphocytes % (Manual) Seg Neutrophils # Seg Neutrophils # Man Lymphocytes # (Manual) D-Dimer ABG pH POC ABG pCO2 POC ABG pO2 ABG Hemoglobin ABG Oxyhemoglobin ABG Sodium ABG Potassium ABG Chloride ABG Glucose Sodium Potassium Chloride Carbon Dioxide 41 H* BUN 33 H Creatinine 0.4 L Glucose 167 H POC Glucose Calcium 8.0 L Magnesium Ferritin Alkaline Phosphatase Lactate Dehydrogenase Total Creatine Kinase CK-MB (CK-2) C-Reactive Protein Total Protein Albumin Triglycerides Arterial Blood Glucose Arterial Blood Ionized Calcium Coronavirus (PCR) SARS-CoV-2 IgG Ab
[2020-08-15] MEDS ORDERED: INSULIN LISPRO 100 UNIT/ML SUB-Q ONE (11:31)
--- NOTE | 2020-08-15 14:17 | Progress Note ---
Assessment and Plan Culture: Blood culture 08/02/2020 no growth Urine culture 08/02/2020<10,000 mixed bacteria Tracheal aspirate 08/02/2020 poor specimen Blood culture 08/10/2020 no growth today Tracheal aspirate 08/12/2020 normal resp chasidy Urine culture 08/12/2020 mixed bacteria MRSA PCR neg Assessment: 60 years old male initially admitted on 07/17/2020 secondary to 2- week history of shortness of breath and cough, found to have severe COVID-19 pneumonia, treated with Decadron and remdesivir, respiratory failure worsened intubated on 07/31/2020, remains on the ventilator since then, noted with a new intermittent fever on 08/01/2020 until yesterday: #New SIRS rule out sepsis: Not present on admission. Of unclear etiology. Possibilities: CAUTI, nosocomial pneumonia (however recent chest x-ray shows improved infiltrates), DVT/PEs?, Opportunistic infection due to prolonged steroid use. Steroids stopped. Repeat UA neg. Procal 0.9-->0.5 #Critical COVID-19 pneumonia: Inflammatory markers elevated. D-dimer was > 10,000, CT chest shows no pulmonary embolism, positive bilateral groundglass opacities. Venous ultrasound no DVT. Markers improving. #Acute hypoxemic respiratory failure: Patient intubated, likely secondary to COVID-19. #Right lip lesion:? Herpes labialis, treated with valtrex. Recommendations: -agree with trach if unable to extubate -Anticoagulation per protocol -Continue cefepime 2 g IV every 12 hours empirically D4 of 7 -Remove/exchange orona as possible Guarded prognosis Nola Canas MD [facility] ([facility]) Office [phone] Subjective Date of service: 08/15/20 Principal diagnosis: Acute respiratory failure with hypoxia, Covid pneumonia Interval history: Remains intubated no fever x 24h, sedated, tachycardic on monitor. Objective - Exam Narrative Exam: General appearance: Sedated, intubated Eyes: anicteric sclerae, moist conjunctivae; no lid-lag; PERRLA HENT: Normocephalic, Atraumatic; normal external ears, nares open, oropharynx endotracheal tube in place, right leg ulcer Neck: supple, tracheal midline, no JVD Lungs: Diminished breath sound bilaterally CV: tachycardic Abdomen: Soft, nontender. [place] catheter in place Extremities: no edema, no cyanosis Skin: Right lip ulceration Psych: Sedated Neuro: Sedated - Constitutional Vitals: Vital Signs Temp Pulse Resp BP Pulse Ox 98.5 F 108 H 21 156/79 94 08/15/20 12:00 08/15/20 13:00 08/15/20 13:00 08/15/20 13:00 08/15/20 13:00 Temperature -Last 24 Hours Temperature 98.5 F Temperature 97.9 F Temperature 98.9 F Temperature 99.8 F Temperature 99.0 F Temperature 99 F - Labs CBC & Chem 7: 08/15/20 Unknown 08/15/20 Unknown Labs: Abnormal lab results 08/14/20 08/14/20 08/15/20 Range/Units 17:50 23:39 04:03 WBC (4.5-11.0) K/mm3 RBC (3.65-5.03) M/mm3 Hgb (11.8-15.2) gm/dl Hct (35.5-45.6) % MCV (84-94) fl POC ABG pCO2 67.3 H (32.0-48.0) mmHg POC ABG pO2 68.7 L (83-108) mmHg ABG Hemoglobin 11.5 L (12.0-17.5) ABG Oxyhemoglobin 91.5 L (94-98) ABG Glucose 172 H (65-95) mg/dL Carbon Dioxide (22-30) mmol/L BUN (9-20) mg/dL Creatinine (0.8-1.3) mg/dL Glucose (75-100) mg/dL POC Glucose 244 H 138 H (70-105) mg/dL Calcium (8.4-10.2) mg/dL Arterial Blood Glucose 172 H (65-95) mg/dL 08/15/20 08/15/20 08/15/20 Range/Units 05:12 11:26 Unknown WBC 11.9 H (4.5-11.0) K/mm3 RBC 2.70 L (3.65-5.03) M/mm3 Hgb 8.5 L (11.8-15.2) gm/dl Hct 26.6 L (35.5-45.6) % MCV 99 H (84-94) fl POC ABG pCO2 (32.0-48.0) mmHg POC ABG pO2 (83-108) mmHg ABG Hemoglobin (12.0-17.5) ABG Oxyhemoglobin (94-98) ABG Glucose (65-95) mg/dL Carbon Dioxide (22-30) mmol/L BUN (9-20) mg/dL Creatinine (0.8-1.3) mg/dL Glucose (75-100) mg/dL POC Glucose 150 H 181 H (70-105) mg/dL Calcium (8.4-10.2) mg/dL Arterial Blood Glucose (65-95) mg/dL 08/15/20 Range/Units Unknown WBC (4.5-11.0) K/mm3 RBC (3.65-5.03) M/mm3 Hgb (11.8-15.2) gm/dl Hct (35.5-45.6) % MCV (84-94) fl POC ABG pCO2 (32.0-48.0) mmHg POC ABG pO2 (83-108) mmHg ABG Hemoglobin (12.0-17.5) ABG Oxyhemoglobin (94-98) ABG Glucose (65-95) mg/dL Carbon Dioxide 41 H* (22-30) mmol/L BUN 33 H (9-20) mg/dL Creatinine 0.4 L (0.8-1.3) mg/dL Glucose 167 H (75-100) mg/dL POC Glucose (70-105) mg/dL Calcium 8.0 L (8.4-10.2) mg/dL Arterial Blood Glucose (65-95) mg/dL
[2020-08-15] MEDS: traZODone 50 MG TAB PO SCH (22:38)
[2020-08-16] MEDS: INSULIN LISPRO 100 UNIT/ML VIAL 3 mL SUB-Q SCH ×4 (00:30→18:35)
[2020-08-16] MEDS: fentaNYL DRIP Premix 2,000 MCG/100 ML BAG IV SCH ×4 (03:56→21:41)
[2020-08-16 05:01] LABS: Hematocrit 27.2 % (35.5-45.6); Hemoglobin 8.4 gm/dl (11.8-15.2); Mean Corpuscular HGB Conc 31 % (32-34); Mean Corpuscular Volume 99 fl (84-94); Platelet Count 238 K/mm3 (140-440); Red Blood Count 2.75 M/mm3 (3.65-5.03); Red Cell Distribution Width 14.5 % (13.2-15.2)
[2020-08-16 06:21] LABS: Blood Urea Nitrogen 29 mg/dL (9-20); Calcium 7.7 mg/dL (8.4-10.2); Hemolysis Index 2
[2020-08-16 06:22] LABS: BUN/Creatinine Ratio 73
--- NOTE | 2020-08-16 08:07 | Progress Note ---
Assessment and Plan Assessment and plan: 60 YO Male HD #23 with acute hypoxemic respiratory failure, bilateral pneumonia secondary to coronavirus infection, cough who is currently intubated and on ventilatory support. Patient has poor prognosis. Patient currently unable to be weaned from ventilatory support. Patient has poor prognosis. No acute decompensation overnight. Closely monitor the patient and adjust management as needed Follow CTA chest, and inflammatory markers Consults recommendations noted and appreciated Plan of care reviewed with the patient and his nurse 07/20; patient is severely hypoxemic, on high flow oxygen 40 L/100%/O2 sats 95 Elevated D-dimers, patient is severely hypoxemic, will check CTA chest to rule out PE Also consider lower extremity venous Doppler to rule out DVT 07/21: Patient remains on high flow oxygen however mild improvement from 40 L to 35 l Tolerating prone position, continue steroids remdesivir CTA chest negative for PE, lower extremity venous Doppler negative for DVT Consults recommendations noted and appreciated Poor prognosis, patient is aware 07/22/2020; patient feels slightly better remains on high flow oxygen however lower than yesterday 35 L/95% /O2 sat 94% 07/21/2020 advised the patient to rest in prone position as tolerated Home oxygen evaluation 07/23/2020; remains on high flow oxygen, continue steroids remdesivir, prone position and comfort care Patient is critically ill with very poor prognosis and prolonged hypoxemia on high flow oxygen Plan of care reviewed with the patient and his nurse 07/24/2020; patient was severely hypoxemic rapid response called oxygen settings adjusted patient is currently better, requiring high flow oxygen right from the day he was admitted, poor prognosis, discussed with patient's 07/25/2020; patient remains on high flow oxygen in mild distress, overall prognosis poor I discussed with , and family friend physician extensively yesterday Poor prognosis continue current management 07/26/2020; patient remains on high flow oxygen 40 L/100%/95% O2 sat +100% nonrebreather Patient is critically ill, poor prognosis, ID pulmonary following 07/27/2020; patient remains on high flow oxygen 40 L/100%/[address] 100% nonrebreather Very poor prognosis, patient and family aware Pulmonary recommendations noted and appreciated 07/28/2020; patient remains critically ill, remains dependent on high flow oxygen 40 L +100% nonrebreather Very poor prognosis. 07/29/2020 Remains critically ill On high flow oxygen 07/30/2020 On high flow oxygen Is critically ill 07/31/2020 On high flow oxygen Critically ill 08/01/2020 on high flow oxygen Critically ill 08/02/2020 On Vent Weaning in progress 08/03/20 On Vent Weaning in progress 08/04/20 On vent Weaning in progress 08/05/20 Did not increase PEEP yesterday. PaO2 improved on own. Will wean FiO2 down today for sats >88%. Hold on proning for now. Continue steroids. Needs better rate control. Most likely sinus tach from hypoxemia, 08/08: Patient remains on full ventilatory support, critically ill, Proninng per [facility]. Down to 60% oxygen FIO2. PEEP Lasix 20mg IV x 1 today, Consider changing to full dose anticoagulation. Discussed with [facility]. Check Osmolality. Monitor Plt considering Lovenox Spoke with extensively and sister. 08/10; Continue supportive care, No significant clinical change, monitor for fever, continue pronining if tolerated. Being changed to Versed due to worsening triglycerides propofol has been stopped. Will discuss with critical care physician if some additional Lasix trial will be done as well monitoring patient's renal function. I have called and left a message for the family. 08/11: Continues with persistent hypoxia and hypercapnia. Intermittent fever. No elevated leukocytosis. Will reconsult ID to assist with management of this. Continue on full dose anticoagulation while monitoring H&H. We will hold off any further Lasix due to noted elevated bicarb. We will continue to monitor 08/12: Discussed with nursing staff. Also reviewed wallpaper inspector per document ation. Patient remains critically ill with no change for the better or for worse. Discussed with nursing staff patient still moves around but nonpurposeful movements not following commands. Will reevaluate during sedation vacation. We will continue to monitor hypernatremia and adjust fluids to help with improvement. I have called and update family, answered all questions. We will continue pronging 08/13: Updated family, Unfortunately no improvement, Will discuss with [facility] if Diamox should be tried. Continue monitoring and on Restraints. 08/14: Continue supportive care. Will update family tomorrow. Continue to wean oxygen as tolerated. Pulmonary input noted patient on D5W for the next 24 hours while free water has been increased no diuresis or Diamox at this time per their recommendation. Prognosis remains guarded. 08/15: Continue supportive care. Await a.m. labs. Blood sugar sodium improved on D5 water. Still no clinical change. Discussed with clinical team Decadron has been discontinued. No clinical improvement 08/16: Discussing Trach and PEG with the family. Continue supportive care, Discussed with Pulmonary, will trial Lasix today, Prone as tolerated. Spoke with spouse GWEN [phone], she will come in to see him. she wants to know if he is in a coma. I have provided detailed explanation of his critical nature. Will defer to my colleagues to keep updating her. Prognosis is guarded to poor --Acute hypoxc respiratory failure on Vent Current Visit: Yes Status: Acute Plan to address problem: Weaning in progress -- Hypernatremia increase water intake --COVID-19 positive Continue contact and droplet isolation, --Elevated D-dimers; CTA chest negative for PE, mild pulmonary edema, -- Pneumonia Current Visit: Yes Status: Acute Plan to address problem: Off antibiotics --Severe protein calorie Malnutrition Protozoologist consult -- Throbocytopenia -- Acute Metabolic Encephalopathy ---DVT prophylaxis Current Visit: Yes Status: Acute Plan to address problem: Patient placed on subcutaneous Lovenox. -- Full code status Current Visit: Yes Status: Acute Plan to address problem: Patient is a full code. Advance care planning Current Visit: Yes Status: Acute Plan to address problem: Disease education conducted, patient is full code, patient has poor prognosis. Prognosis discussed. +30 minutes. The high probability of a clinically significant, sudden or life threatening deterioration of the [cardiac, pulmonary, neuro] system(s) required my full and direct attention, intervention and personal management. The aggregate critical care time was [35] minutes. This time is in addition to time spent performing reported procedures but includes the following: [x] Data Review and interpretation [x] Patient assessment and monitoring of vital signs [x] Documentation [x] Medication orders and management History Interval history: Patient seen and examined, unfortunately remains critically ill. Requiring increased oxygenation today due to worsening Hypoxia, Hospitalist Physical - Physical exam Narrative exam: General appearance: Present: on full ventilatory support, sedatedm, agitated with agonal breathing - EENT Eyes: Present: miosis ENT: Not following commands - Neck Neck: Present: supple - Respiratory Respiratory effort: labored still mildly increased wob Respiratory: bilateral: diminished, rhonchi - Cardiovascular Rhythm: Regular but tachycardic Heart Sounds: Present: S1 & S2 - Extremities Extremities: no ischemia Peripheral Pulses: within normal limits - Abdominal General gastrointestinal: soft, non-tender, non-distended - Integumentary Integumentary: Present: dry - Psychiatric Psychiatric: no appropriate mood/affect, no intact judgment & insight, no memory intact - Neurologic Neurologic: CNII-XII intact, no gait normal - Constitutional Vitals: Temp Pulse Resp BP Pulse Ox 99.8 F H 111 H 29 H 134/61 95 08/16/20 03:21 08/16/20 07:29 08/16/20 07:16 08/16/20 07:29 08/16/20 07:29 General appearance: Present: mild distress, well-nourished, other (Hypoxemic on high flow oxygen) HEART Score - HEART Score Troponin: Troponin T 0.018 ng/mL (0.00-0.029) 07/30/20 10:33 Results - Labs CBC & Chem 7: 08/16/20 04:00 08/16/20 Unknown Labs: Laboratory Last Values WBC 13.3 K/mm3 (4.5-11.0) H 08/16/20 04:00 RBC 2.75 M/mm3 (3.65-5.03) L 08/16/20 04:00 Hgb 8.4 gm/dl (11.8-15.2) L 08/16/20 04:00 Hct 27.2 % (35.5-45.6) L 08/16/20 04:00 MCV 99 fl (84-94) H 08/16/20 04:00 MCH 31 pg (28-32) 08/16/20 04:00 MCHC 31 % (32-34) L 08/16/20 04:00 RDW 14.5 % (13.2-15.2) 08/16/20 04:00 Plt Count 238 K/mm3 (140-440) 08/16/20 04:00 Lymph % (Auto) 11.5 % (13.4-35.0) L 08/07/20 04:00 [place] % (Auto) 3.2 % (0.0-7.3) 08/07/20 04:00 Eos % (Auto) 2.1 % (0.0-4.3) 08/07/20 04:00 Baso % (Auto) 0.3 % (0.0-1.8) 08/07/20 04:00 Lymph # (Auto) 1.3 K/mm3 (1.2-5.4) 08/07/20 04:00 [place] # (Auto) 0.3 K/mm3 (0.0-0.8) 08/07/20 04:00 Eos # (Auto) 0.2 K/mm3 (0.0-0.4) 08/07/20 04:00 Baso # (Auto) 0.0 K/mm3 (0.0-0.1) 08/07/20 04:00 Add Manual Diff Complete 07/18/20 04:31 Total Counted 100 07/18/20 04:31 Seg Neutrophils % 82.9 % (40.0-70.0) H 08/07/20 04:00 Lymphocytes % (Manual) 5.0 % (13.4-35.0) L 07/18/20 04:31 Monocytes % (Manual) 3.0 % (0.0-7.3) 07/18/20 04:31 Nucleated RBC % Not Reportable 07/18/20 04:31 Seg Neutrophils # 9.0 K/mm3 (1.8-7.7) H 08/07/20 04:00 Seg Neutrophils # Man 8.1 K/mm3 (1.8-7.7) H 07/18/20 04:31 Band Neutrophils # 0.0 K/mm3 07/18/20 04:31 Lymphocytes # (Manual) 0.4 K/mm3 (1.2-5.4) L 07/18/20 04:31 Abs React Lymphs (Man) 0.0 K/mm3 07/18/20 04:31 Monocytes # (Manual) 0.3 K/mm3 (0.0-0.8) 07/18/20 04:31 Eosinophils # (Manual) 0.0 K/mm3 (0.0-0.4) 07/18/20 04:31 Basophils # (Manual) 0.0 K/mm3 (0.0-0.1) 07/18/20 04:31 Metamyelocytes # 0.0 K/mm3 07/18/20 04:31 Myelocytes # 0.0 K/mm3 07/18/20 04:31 Promyelocytes # 0.0 K/mm3 07/18/20 04:31 Blast Cells # 0.0 K/mm3 07/18/20 04:31 WBC Morphology Not Reportable 07/18/20 04:31 Hypersegmented Neuts Not Reportable 07/18/20 04:31 Hyposegmented Neuts Not Reportable 07/18/20 04:31 Hypogranular Neuts Not Reportable 07/18/20 04:31 Smudge Cells Not Reportable 07/18/20 04:31 Toxic Granulation Not Reportable 07/18/20 04:31 Toxic Vacuolation Not Reportable 07/18/20 04:31 Dohle Bodies Not Reportable 07/18/20 04:31 Pelger-Huet Anomaly Not Reportable 07/18/20 04:31 Cheri Rods Not Reportable 07/18/20 04:31 Platelet Estimate Consistent w auto 07/18/20 04:31 Clumped Platelets Not Reportable 07/18/20 04:31 Plt Clumps, EDTA Not Reportable 07/18/20 04:31 Large Platelets Not Reportable 07/18/20 04:31 Giant Platelets Not Reportable 07/18/20 04:31 Platelet Satelliting Not Reportable 07/18/20 04:31 Plt Morphology Comment Not Reportable 07/18/20 04:31 RBC Morphology Not Reportable 07/18/20 04:31 Dimorphic RBCs Not Reportable 07/18/20 04:31 Polychromasia Not Reportable 07/18/20 04:31 Hypochromasia Not Reportable 07/18/20 04:31 Poikilocytosis Not Reportable 07/18/20 04:31 Anisocytosis 1+ 07/18/20 04:31 Microcytosis Not Reportable 07/18/20 04:31 Macrocytosis Not Reportable 07/18/20 04:31 Spherocytes Not Reportable 07/18/20 04:31 Pappenheimer Bodies Not Reportable 07/18/20 04:31 Sickle Cells Not Reportable 07/18/20 04:31 Target Cells Not Reportable 07/18/20 04:31 Tear Drop Cells Not Reportable 07/18/20 04:31 Ovalocytes Not Reportable 07/18/20 04:31 Helmet Cells Not Reportable 07/18/20 04:31 Siu-Glide Bodies Not Reportable 07/18/20 04:31 [place] Rings Not Reportable 07/18/20 04:31 [place] Cells Not Reportable 07/18/20 04:31 Bite Cells Not Reportable 07/18/20 04:31 Crenated Cell Not Reportable 07/18/20 04:31 Elliptocytes Not Reportable 07/18/20 04:31 Acanthocytes (Spur) Not Reportable 07/18/20 04:31 Rouleaux Not Reportable 07/18/20 04:31 Hemoglobin C Crystals Not Reportable 07/18/20 04:31 Schistocytes Not Reportable 07/18/20 04:31 Malaria parasites Not Reportable 07/18/20 04:31 ESR > 140.0 mm/Hr (0-20) 08/10/20 13:23 Wilfredo Bodies Not Reportable 07/18/20 04:31 Hem Pathologist Commnt No 07/18/20 04:31 PT 13.7 Sec. (12.2-14.9) 07/18/20 04:31 INR 1.06 (0.87-1.13) 07/18/20 04:31 D-Dimer 5413.39 ng/mlDDU (0-234) H 08/12/20 08:32 ABG pH 7.298 (7.320-7.450) L 08/16/20 01:24 POC ABG pCO2 76.5 mmHg (32.0-48.0) H 08/16/20 01:24 POC ABG pO2 65.6 mmHg (83-108) L 08/16/20 01:24 POC ABG HCO3 36.6 08/16/20 01:24 POC ABG Base Excess 8.3 08/16/20 01:24 ABG Hemoglobin 9.7 (12.0-17.5) L 08/16/20 01:24 ABG Oxyhemoglobin 89 (94-98) L 08/16/20 01:24 ABG Methemoglobin 0.3 (0.0-1.5) 08/16/20 01:24 ABG Sodium 144.4 mmol/L (136.0-145.0) 08/16/20 01:24 ABG Potassium 4.2 mmol/L (3.40-4.50) 08/16/20 01:24 ABG Chloride 103.0 mmol/L (98-107) 08/16/20 01:24 ABG Glucose 201 mg/dL (65-95) H 08/16/20 01:24 Carboxyhemoglobin 1.3 (0.5-1.5) 08/16/20 01:24 FiO2 70 08/16/20 01:24 Sodium 146 mmol/L (137-145) H 08/16/20 Unknown Potassium 4.4 mmol/L (3.6-5.0) 08/16/20 Unknown Chloride 103.6 mmol/L (98-107) 08/16/20 Unknown Carbon Dioxide 36 mmol/L (22-30) H 08/16/20 Unknown Anion Gap 11 mmol/L 08/16/20 Unknown BUN 29 mg/dL (9-20) H 08/16/20 Unknown Creatinine 0.4 mg/dL (0.8-1.3) L 08/16/20 Unknown Estimated GFR > 60 ml/min 08/16/20 Unknown BUN/Creatinine Ratio 73 % 08/16/20 Unknown Glucose 176 mg/dL (75-100) H 08/16/20 Unknown POC Glucose 161 mg/dL (70-105) H 08/16/20 05:02 Osmolality 332 Mosm/kg 08/08/20 19:14 Lactic Acid 1.30 mmol/L (0.7-2.0) 08/10/20 13:23 Calcium 7.7 mg/dL (8.4-10.2) L 08/16/20 Unknown Phosphorus 2.60 mg/dL (2.5-4.5) 08/08/20 12:40 Magnesium 2.20 mg/dL (1.7-2.3) 08/08/20 12:40 Ferritin 1401.0 ng/mL (30.0-300.0) H 08/12/20 08:32 Total Bilirubin 0.40 mg/dL (0.1-1.2) 08/07/20 04:00 Direct Bilirubin < 0.2 mg/dL (0-0.2) 07/22/20 04:31 Indirect Bilirubin 0.0 mg/dL 07/22/20 04:31 AST 21 units/L (5-40) 08/07/20 04:00 ALT 44 units/L (7-56) 08/07/20 04:00 Alkaline Phosphatase 99 units/L (35-129) 08/07/20 04:00 Lactate Dehydrogenase 378 units/L (91-180) H 08/12/20 08:32 Total Creatine Kinase 174 units/L (55-170) H 07/30/20 10:33 CK-MB (CK-2) 4.5 ng/mL (0.0-4.0) H 07/30/20 10:33 CK-MB (CK-2) Rel Index 2.5 (0-4) 07/30/20 10:33 Troponin T 0.018 ng/mL (0.00-0.029) 07/30/20 10:33 C-Reactive Protein 19.50 mg/dL (0.00-1.30) H 08/12/20 08:32 NT-Pro-B Natriuret Pep 290.3 pg/mL (0-900) 07/18/20 16:33 Total Protein 5.4 g/dL (6.3-8.2) L 08/07/20 04:00 Albumin 2.8 g/dL (3.9-5) L 08/07/20 04:00 Albumin/Globulin Ratio 1.1 % 08/07/20 04:00 Triglycerides 167 mg/dL (2-149) H 08/13/20 06:30 Procalcitonin 0.57 ng/mL (<0.15) 08/12/20 08:32 Arterial Blood Glucose 201 mg/dL (65-95) H 08/16/20 01:24 Arterial Blood Ionized Calcium 4.7 mg/dL (4.6-5.3) 08/16/20 01:24 Urine Color Yellow (Yellow) 08/12/20 10:05 Urine Turbidity Clear (Clear) 08/12/20 10:05 Urine pH 6.0 (5.0-7.0) 08/12/20 10:05 Ur Specific [place] 1.023 (1.003-1.030) 08/12/20 10:05 Urine Protein 30 mg/dl mg/dL (Negative) 08/12/20 10:05 Urine Glucose (UA) Neg mg/dL (Negative) 08/12/20 10:05 Urine Ketones Neg mg/dL (Negative) 08/12/20 10:05 Urine Blood Neg (Negative) 08/12/20 10:05 Urine Nitrite Neg (Negative) 08/12/20 10:05 Urine Bilirubin Neg (Negative) 08/12/20 10:05 Urine Urobilinogen 4.0 mg/dL (<2.0) 08/12/20 10:05 Ur Leukocyte Esterase Neg (Negative) 08/12/20 10:05 Urine WBC (Auto) 5.0 /HPF (0.0-6.0) 08/12/20 10:05 Urine RBC (Auto) 13.0 /HPF (0.0-6.0) 08/12/20 10:05 U Epithel Cells (Auto) < 1.0 /HPF (0-13.0) 08/12/20 10:05 Hyaline Casts 1 /LPF 08/02/20 11:30 Granular Casts 1 /LPF 08/02/20 11:30 Urine Mucus Few /HPF 08/12/20 10:05 Nasal Screen MRSA (PCR) Negative (Negative) 08/12/20 10:05 Coronavirus (PCR) Positive (Negative) A 07/18/20 08:50 SARS-CoV-2 IgG Ab Reactive (NonReactive) A 07/21/20 05:24 Microbiology: Microbiology 08/10/20 13:23 Peripheral/Venous Blood Culture - Final NO GROWTH AFTER 5 DAYS 08/10/20 13:23 Peripheral/Venous Blood Culture - Final NO GROWTH AFTER 5 DAYS Cabrera/IV: Voiding Method Indwelling Catheter IV Catheter Type [Left Upper PICC Line arm] IV Catheter Type [Left Hand] INT / Saline Lock IV Catheter Type [Left Wrist] INT / Saline Lock IV Catheter Type [Left INT / Saline Lock Antecubital] IV Catheter Type [Right Distal INT / Saline Lock Port Hand] Active Medications - Current Medications Current Medications: Generic Name Dose Route Start Last Admin Trade Name Freq PRN Reason Stop Dose Admin Acetaminophen 650 mg 07/17/20 22:21 08/06/20 13:14 Acetaminophen 325 Mg Tab PO 650 mg Q4H PRN Administration Pain MILD(1-3)/Fever >100.5/AWAD Albuterol 2.5 mg 07/18/20 16:14 07/18/20 19:45 Albuterol 2.5 Mg/3 Ml Nebu IH 2.5 mg Q4HRT PRN Administration Shortness Of Breath Lipase/Protease/Amylase 1 each 07/31/20 12:23 Lipase 10,500/Protease 25,000/Amylase 43,750 (Units) Dr Cap FEEDTUBE PRN PRN For Clogged Feeding Tube Ascorbic Acid 1,000 mg 08/08/20 22:00 08/15/20 22:38 Ascorbic Acid 500 Mg Tab PO 1,000 mg BID SHERON Administration Cholecalciferol 5,000 unit 08/08/20 19:00 08/15/20 10:07 Cholecalciferol (Vit D3) 5,000 Unit Tab PO 5,000 unit DAILY SHERON Administration Dextrose 50 ml 08/06/20 13:14 Dextrose 50% In Water (25gm) 50 Ml Syringe IV Q30MIN PRN Hypoglycemia Protocol Enoxaparin Sodium 90 mg 08/08/20 22:00 08/15/20 22:40 Enoxaparin 100 Mg/1 Ml Inj 1 mg/kg (90 mg) 90 mg SUB-Q Administration Q12HR SHERON Protocol Famotidine 20 mg 08/01/20 10:00 08/15/20 22:38 Famotidine 20 Mg Tab PO 20 mg BID SHERON Administration Hydrophilic Ointment 1 applic 07/31/20 11:00 Lip Therapy Vaseline TP Q2H PRN Dry Lips Norepinephrine 4 mg in 250 mls @ 7.5 mls/hr 07/31/20 09:00 08/01/20 02:37 Levophed Drip 4 Mg/Ns 250 Ml IV 0 mcg/min TITR SHERON 0 mls/hr Titration Protocol 2 MCG/MIN Fentanyl Citrate 2,000 mcg in 100 mls @ 4.43 mls/hr 07/31/20 11:00 08/16/20 03:56 Fentanyl Drip Premix IV 4 mcg/kg/hr TITR SHERON 17.72 mls/hr Administration Protocol 1 MCG/KG/HR Midazolam HCl 100 mg/ Sodium 100 mls @ 2 mls/hr 08/10/20 11:00 08/15/20 10:09 Chloride IV 4 mg/hr TITR SHERON 4 mls/hr Administration Protocol 2 MG/HR Cefepime HCl 2 gm in 100 mls @ 200 mls/hr 08/12/20 10:00 08/15/20 22:37 Cefepime/Ns 2 Gm/100 Ml IV 08/18/20 22:29 200 mls/hr Q12HR SHERON Administration Protocol Insulin Human Lispro 0 unit 08/07/20 00:00 08/16/20 07:27 Insulin Lispro 100 Unit/Ml Vial 3 Ml SUB-Q 2 unit Q6HR SHERON Administration Protocol Lorazepam 2 mg 08/08/20 11:36 08/11/20 13:45 Lorazepam 2 Mg/Ml Vial IV 2 mg Q4H PRN Administration Agitation Magnesium Hydroxide 30 ml 07/17/20 22:21 08/05/20 11:11 Magnesium Hydroxide (Mom) Oral Liqd Udc PO 30 ml Q4H PRN Administration Constipation Multi-Ingred Cream/Lotion/Oil/Oint 1 applic 07/31/20 10:55 Mineral Oil/Petrolatum, White Ophth Oint 3.5 Gm OU Q4H PRN Dry Eye(s) Ondansetron HCl 4 mg 07/17/20 22:21 07/20/20 02:21 Ondansetron 4 Mg/2 Ml Inj IV 4 mg Q8H PRN Administration Nausea And Vomiting Senna/Docusate Sodium 2 tab 08/03/20 11:00 08/15/20 22:38 Sennosides/Docusate Sodium 8.6/50 Mg Tab PO 2 tab BID SHERON Administration Simple Syrup 15 ml 07/31/20 12:23 Simple Syrup 15 Ml FEEDTUBE PRN PRN Hypoglycemia Simple Syrup 30 ml 07/31/20 12:23 Simple Syrup 15 Ml FEEDTUBE PRN PRN Hypoglycemia Sodium Bicarbonate 325 mg 07/31/20 12:23 Sodium Bicarbonate 325 Mg Tab FEEDTUBE PRN PRN For Clogged Feeding Tube Sodium Chloride 10 ml 07/17/20 22:01 07/17/20 22:13 Sodium Chloride 0.9% 10 Ml Flush Syringe IV 10 ml PRN PRN Administration LINE FLUSH Sodium Chloride 10 ml 07/18/20 10:00 08/15/20 22:39 Sodium Chloride 0.9% 10 Ml Flush Syringe IV 10 ml BID SHERON Administration Trazodone HCl 50 mg 07/30/20 22:00 08/15/20 22:38 Trazodone 50 Mg Tab PO 50 mg QHS SHERON Administration Zinc Sulfate 220 mg 08/08/20 19:00 08/15/20 10:08 Zinc Sulfate 220 Mg Cap PO 220 mg QDAY SHERON Administration Nutrition/Malnutrition Assess - Dietary Evaluation Nutrition/Malnutrition Findings: Nutrition Notes Start: 07/23/20 13: 19 Freq: Status: Active Protocol: Document 08/12/20 11:28 CW (Rec: 08/12/20 12:16 CW [id number]) Co-Sign 08/12/20 11:28 MK Nutrition Notes Need for Assessment generated from: MD Order Initial or Follow up Reassessment Current Diagnosis Respiratory Failure Other Pertinent Diagnosis COVID-19 (+), pneu, prerenal azotemia Current Diet Vital AF 1.2 at 70 mL/hr Labs/Tests Na 149 BUN 33 Cr 0.5 BG 173 Pertinent Medications Decadron Height 5 ft 11 in Weight 89.4 kg [place] Body Weight (kg) 78.18 BMI 27.4 Weight change and time frame Wt change noted, pt oliguric Weight Status Overweight Subjective/Other Information FU for Na, water flushes, prone status, and TF tolerance . Per MD consult for TF management, discussed with RN about total fluid volume given and needed flushes for hypernatremia during proning. Observed pt supine with 120ml/ hr TF running. Pt tolerating TF. Percent of energy/protein needs met: 96%/100% Burn Absent Trauma Absent GI Symptoms None Difficulty In Swallowing Current % PO Negligible Minimum of two criteria Yes Energy Intake (severe) < or equal to 50% Estimated Energy Requirement > or equal to 5 days Fluid Accumulation Mild (non-severe) Reduced Food Supervisor Strength Measurably Reduced (severe) #2 Nutrition Diagnosis Malnutrition Diagnosis Progress(for reassessment Continues documentation) #1 Nutrition Diagnosis Inadequate oral intake Diagnosis Progress(for reassessment Continues documentation) Is patient on ventilator? Yes Is Patient Ambulatory and/or Out of Bed No REE-(Ceiba-St. Jeor-confined to bed) [phone] Calculation Used for Recommendations Ceiba-St Jeor Additional Notes Pro needs 1.2-2g/k-178g/ day Fluid needs 1ml/kcal Nutrition Intervention Change Diet Order: Continue TF Nutrition Support: Vital AF 1.2 at 70ml/hr with 300ml water flush q4h until hypernatremia resolved; then 115ml q4h. When pronin hr proned: Vital AF 1.2 at 20 ml/hr, flush 100 ml q4h for hypernatremia, or per MD; then 50 ml q4h once resolved. 12 hr supine: Vital AF 1.2 at 120 ml/hr, flush 350 ml q4h for hypernatremia, or per MD; then 180 q4h once resolved. Kcal 2,016 Protein (gm) 126 Fluid (mL) 1,362 Goal #1 Continued TF tolerance Goal #2 Continue to meet at least 75% of estimated energy and protein needs via TF. Anticipated Discharge Needs: Unable to determine at this time Follow-Up By: 08/16/20 Additional Comments FU for TF tolerance, prone status, hypernatremia
[2020-08-16] MEDS: ASCORBIC ACID 500 MG TAB PO SCH ×2 (10:09→21:43)
[2020-08-16] MEDS: CEFEPIME/NS 2 GM/100 ML 2 GM/100 ML BAG IV SCH ×2 (10:09→21:42)
[2020-08-16] MEDS: SENNOSIDES/DOCUSATE SODIUM 8.6/50 MG TAB PO SCH ×2 (10:10→21:43)
[2020-08-16] MEDS: ENOXAPARIN 100 MG/1 ML INJ SUB-Q SCH ×2 (10:10→21:44)
[2020-08-16] MEDS: FAMOTIDINE 20 MG TAB PO SCH ×2 (10:10→21:43)
[2020-08-16] MEDS: CHOLECALCIFEROL (VIT D3) 5,000 UNIT TAB PO SCH (10:12)
--- NOTE | 2020-08-16 10:34 | Progress Note ---
Assessment and Plan Culture: Blood culture 08/02/2020 no growth Urine culture 08/02/2020<10,000 mixed bacteria Tracheal aspirate 08/02/2020 poor specimen Blood culture 08/10/2020 no growth today Tracheal aspirate 08/12/2020 normal resp chasidy Urine culture 08/12/2020 mixed bacteria MRSA PCR neg Assessment: 60 years old male initially admitted on 07/17/2020 secondary to 2- week history of shortness of breath and cough, found to have severe COVID-19 pneumonia, treated with Decadron and remdesivir, respiratory failure worsened intubated on 07/31/2020, remains on the ventilator since then, noted with a new intermittent fever on 08/01/2020 until yesterday: #New SIRS rule out sepsis: Not present on admission. Of unclear etiology. Possibilities: nosocomial pneumonia (however recent chest x-ray shows improved infiltrates), DVT/PEs?, Opportunistic infection due to prolonged steroid use. Steroids stopped. Repeat UA neg. Procal 0.9-->0.5 #Critical COVID-19 pneumonia: Inflammatory markers elevated. D-dimer was > 10,000, CT chest shows no pulmonary embolism, positive bilateral groundglass opacities. Venous ultrasound no DVT. Markers improving. #Acute hypoxemic respiratory failure: Patient intubated, likely secondary to COVID-19. #Right lip lesion:? Herpes labialis, treated with valtrex. Recommendations: -agree with trach if unable to extubate -Anticoagulation per protocol -Continue cefepime 2 g IV every 12 hours empirically D5 of 7 -Remove/exchange orona as possible -discussed with nursing staff Guarded prognosis Nola Canas MD [facility] ([facility]) Office [phone] Subjective Date of service: 08/16/20 Principal diagnosis: Acute respiratory failure with hypoxia, Covid pneumonia Interval history: Remains intubated FiO2 70%, PEEP 16, sedated on Versed and fentanyl, tachycardia on monitor. No fever. T-max 99.8. Objective - Exam Narrative Exam: Physical exam deferred to minimize COVID-19 transmission during pandemic. ER and internal medicine physical examination notes reviewed. - Constitutional Vitals: Vital Signs Temp Pulse Resp BP Pulse Ox 99.8 F H 106 H 29 H 146/65 95 08/16/20 03:21 08/16/20 08:46 08/16/20 08:46 08/16/20 08:46 08/16/20 08:46 Temperature -Last 24 Hours Temperature 99.8 F Temperature 98 F Temperature 98.2 F Temperature 98.8 F Temperature 98.5 F - Labs CBC & Chem 7: 08/16/20 04:00 08/16/20 Unknown Labs: Abnormal lab results 08/15/20 08/15/20 08/15/20 Range/Units 11:26 17:08 23:34 WBC (4.5-11.0) K/mm3 RBC (3.65-5.03) M/mm3 Hgb (11.8-15.2) gm/dl Hct (35.5-45.6) % MCV (84-94) fl MCHC (32-34) % ABG pH (7.320-7.450) POC ABG pCO2 (32.0-48.0) mmHg POC ABG pO2 (83-108) mmHg ABG Hemoglobin (12.0-17.5) ABG Oxyhemoglobin (94-98) ABG Glucose (65-95) mg/dL Sodium (137-145) mmol/L Carbon Dioxide (22-30) mmol/L BUN (9-20) mg/dL Creatinine (0.8-1.3) mg/dL Glucose (75-100) mg/dL POC Glucose 181 H 187 H 160 H (70-105) mg/dL Calcium (8.4-10.2) mg/dL Arterial Blood Glucose (65-95) mg/dL 08/16/20 08/16/20 08/16/20 Range/Units 01:24 04:00 05:02 WBC 13.3 H (4.5-11.0) K/mm3 RBC 2.75 L (3.65-5.03) M/mm3 Hgb 8.4 L (11.8-15.2) gm/dl Hct 27.2 L (35.5-45.6) % MCV 99 H (84-94) fl MCHC 31 L (32-34) % ABG pH 7.298 L (7.320-7.450) POC ABG pCO2 76.5 H (32.0-48.0) mmHg POC ABG pO2 65.6 L (83-108) mmHg ABG Hemoglobin 9.7 L (12.0-17.5) ABG Oxyhemoglobin 89 L (94-98) ABG Glucose 201 H (65-95) mg/dL Sodium (137-145) mmol/L Carbon Dioxide (22-30) mmol/L BUN (9-20) mg/dL Creatinine (0.8-1.3) mg/dL Glucose (75-100) mg/dL POC Glucose 161 H (70-105) mg/dL Calcium (8.4-10.2) mg/dL Arterial Blood Glucose 201 H (65-95) mg/dL 08/16/20 Range/Units Unknown WBC (4.5-11.0) K/mm3 RBC (3.65-5.03) M/mm3 Hgb (11.8-15.2) gm/dl Hct (35.5-45.6) % MCV (84-94) fl MCHC (32-34) % ABG pH (7.320-7.450) POC ABG pCO2 (32.0-48.0) mmHg POC ABG pO2 (83-108) mmHg ABG Hemoglobin (12.0-17.5) ABG Oxyhemoglobin (94-98) ABG Glucose (65-95) mg/dL Sodium 146 H (137-145) mmol/L Carbon Dioxide 36 H (22-30) mmol/L BUN 29 H (9-20) mg/dL Creatinine 0.4 L (0.8-1.3) mg/dL Glucose 176 H (75-100) mg/dL POC Glucose (70-105) mg/dL Calcium 7.7 L (8.4-10.2) mg/dL Arterial Blood Glucose (65-95) mg/dL
[2020-08-16] MEDS ORDERED: FUROSEMIDE 40 MG/4 ML INJ IV ONE (11:00)
--- NOTE | 2020-08-16 11:03 | Progress Note ---
Assessment and Plan 60 y/o male with chest discomfort, shortness of breath and abnormal CXR, COVID Positive 08/16/20: Day 15 of intubation. Agree with lasix therapy. will give 40 IV x1. Will prone today as Wound Care had not further recs in regards to wounds on lip. Will be very cautions when proning. Will also add back diprovan today to see if this helps with breathing pattern. Prognosis is guarded. IMS to speak with family again today and mentioned that they may ask the to come and visit. 08/15/20: Day 14 of intubation. Stopped steroids over the weekend. Last bicarb was 43 but this was yesterday. Wound care consult. Hopeful they can given us something so that we can start proning again. Hold on proning now. Agree with weaning sedation as tolerated. still making good urine. Agree with D5 but now sodium in normal range now so can discontinue. Prognosis remains guarded. Patient will most likely require a trach if able to be weaned successfully. If possible please discuss the possiblity of this with the family. I like to discuss these things early if possible so it does not come as a shock. I have not developed the best rapport with them so I am asking the [facility] physician to mention this today when they update the family. 08/12/20: Day 11 of intubation. Bicarb is down to 39. pH is not alkalotic. Maxed on Versed at 5 and currently Fentanyl at 4. Urine output remains stable. Will continue proning although has not been responding as well as possible. Hold on diuretic therapy. Needs more free water flushes vs D5W to help with elevated sodium. Guarded prognosis. Please discuss with family that pulmonary [place] unfortunately there has been no change, however he has not gotten worse. we will continue steroid therapy as well as proning. We will wean the oxygen as best we can when his saturations will tolerate it. 08/11/20: Day 10 of intubation. Most likely elevated bicarb is from Steroids (has been on them 25 days). No need to treat at the moment. If his serum bicarb gets about 45-46 will treat with diamox therapy. This will remove bicarb and help with volume. Hold on any further lasix therapy for now also. Will repeat Trigylcerides over the weekend. No diprovan at this time. If more sedation is needed, can look at pentobarb or phenobarbital coma to assist with sedation. Daily labs to monitor renal function. Prognosis remains very guarded. Wean FiO2 for sats>88% 08/10/20: Day 9 of intubation. Unfortunately we must stop diprovan. Will place patient on Versed drip along with Fentanyl drip. Needs daily chemistries to assess renal function so that medication does not build up in patient system. All free water drips as well as flushes have been stopped. Will repeat Chemistry again today at 1400. Prone again today as well. Wean FiO2 for sats >88%. If able to speak with family, would I would tell them is that patient remains critically ill and we will continue to prone on a daily basis to help with oxygenation. I would also tell them we changed the sedation to prevent complications from higher levels. His renal function so far has remained stable which is a good thing but we will monitor it daily. Overall prognosis is still guarded to poor. 08/09/20: Day 8 of intubation. Continue proning as patient is tolerating this and making slow improvement. Continue PEEP at current settings. IMS will update family and I will discuss with IMS my medical opinion to be conveyed to them. 08/08/20: Prone again today. Same weaning parameters as yesterday. Will order labs for am. Calling now and see if she needs the other the family on the phone to update her. Prognosis still remains very guarded to poor. Asked RT to be as aggressive as possible with weaning FiO2. The unfortunately is not understanding how sick the patient is. I am trying my best to explain to her on a daily basis about this. But she does not accept when I tell her that he has remained stable. 08/07/20: Will prone again today. Wean FiO2 for sats >88% and PaO2 >55. Continue to monitor daily urine function and output. I again today explained the severity of the Mr. Suarez's clinical state as best I could using laymen terms. The other family member on the phone says that the communication has not bee consistent. The patient received Remdesivir while he was on the floor. He did get all 5 doses. I explained to the family that there is no indication for longer therapy or ID would have recommended. I also explained to them that I have extended the steroids to see if this would help beyond the current clinical recommendations. I also explained again that there is no cure for COVID 19 and that all measures are experimental as well as supportive. I also explained why he needs sedation while intubated and especially when proning. I am still not sure that they fully understand the extent of his illness but will continue to speak with them. Guarded prognosis. 08/06/20: Increase PEEP today to 16. Repeat gas tomorrow morning. Wean FiO2 today for sats >88%. Spoke with RT and PaO2 of 55 and greater are ok. will prone tonight for 12 hours at least. Remains in sinus tach. No labs drawn this am will order for stat this morning including BMP and Mag and Phos, CBC. Spoke with this am to update her. She is upset and asks to do everything for him that we can which I told her we would. I was also very honest about the severity of the disease which made her even more sad. 08/05/20: Did not increase PEEP yesterday. PaO2 improved on own. Will wean FiO2 down today for sats >88%. Hold on proning for now. Continue steroids. Needs better rate control. Most likely sinus tach from hypoxemia, but needs 12 lead if not done yet. Needs labs checked to assess electrolytes. Prognosis remains guarded to poor. Will attempt to reach today, if not today tomorrow. 08/04/20: Will increase PEEP to 16 today. If no improvement in the next 24 hours then will start proning patient tomorrow night. Continue steroids. Overall prognosis remains very guarded. 08/03/20: Chemistry not ordered, ordered today. Follow up blood cultures. Increased PEEP to 14 and RT will attempt to wean FiO2 back down to 50's. Will continue steroids at current dosing for now. He has already completed to original 10 days. Given some improvement, would like to continue. Overall prognosis remains very guarded. 08/02/20: Check blood and urine cultures along with UA. Will check repeat CXR. Repeat Chemistry tomorrow. Hold on abx therapy for right now. Prognosis remains guarded. Continue steroids. Wean FiO2 for sats >88% 08/01/20: Overall prognosis here is very very guarded to poor. Will consider proning patient later today if not able to wean FiO2 any further this afternoon. Per CM, wants to come see patient which is very reasonable. Will continue steroids despite completing 10 days of this. 07/29/20: Supportive measures. Proning and wean as tolerated. 07/28/20: No new recommendations as of right now. When beds become available will move patient down stairs for closer monitoring. 07/27/20: Difficult situation. Patient appears to be not responding to any therapy. Steroids finished yesterday. Given the degree of inflammation will restart steroids for at least another 72-96 hours. In no improvement will stop. Not much else to do medical therapy [place]. Continue to keep patient net negative. Still remains high risk for intubation and if intubated given his current response to steroids, very high mortality. 07/26/20: No new recs for today. Patient really needs to try to prone as much as possible during the day and sleep prone at night. He remains a high risk for cardiac arrest and intubation. 07/25/20: very high risk for cardiac arrest from hypoxemia, but no available beds in ICU. Given COVID status, ideally would not like to use bipap but may have to in the event of continued desats. While proning does better and does not need the mask along with HFNC. Encourage to prone as long as possible. 1. Continue steroids for 10 days. 2. Continue Remdesivir. Not a candidate for Convalescent Plasma 3. Please ask patient prone as tolerated during the day and sleep prone at night. Currently doing and tolerating 4. Agree with daily lasix but will need labs to monitor renal function and electrolytes. Needs labs for today. 5. Guarded prognosis to poor now with increasing oxygen requirement. May require intubation and high risk for cardiac arrest. CCT 31 Subjective Date of service: 08/16/20 Principal diagnosis: Acute respiratory failure with hypoxia, Covid pneumonia Interval history: Unfortunately, oxygen requirement has gone up. Renal function is still stable and still making good urine. Objective Vital Signs - 12hr 08/15/20 08/15/20 08/15/20 23:00 23:16 23:25 Temperature Pulse Rate 109 H 106 H 107 H Pulse Rate [ From Monitor] Respiratory 30 H 19 26 H Rate Blood Pressure 147/69 147/69 147/69 O2 Sat by Pulse 94 93 93 Oximetry 08/15/20 08/15/20 08/15/20 23:30 23:37 23:46 Temperature 98 F Pulse Rate 108 H 107 H Pulse Rate [ From Monitor] Respiratory 29 H 27 H Rate Blood Pressure 146/73 146/73 O2 Sat by Pulse 93 91 Oximetry 08/15/20 08/16/20 08/16/20 23:52 00:00 00:16 Temperature Pulse Rate 110 H 103 H 108 H Pulse Rate [ 103 H From Monitor] Respiratory 24 21 Rate Blood Pressure 146/73 152/75 152/75 O2 Sat by Pulse 93 94 91 Oximetry 08/16/20 08/16/20 08/16/20 00:30 00:46 01:00 Temperature Pulse Rate 112 H 110 H 112 H Pulse Rate [ From Monitor] Respiratory 21 22 21 Rate Blood Pressure 164/84 164/84 157/71 O2 Sat by Pulse 91 92 93 Oximetry 08/16/20 08/16/20 08/16/20 01:16 01:30 01:46 Temperature Pulse Rate 107 H 111 H 108 H Pulse Rate [ From Monitor] Respiratory 24 25 H 27 H Rate Blood Pressure 157/71 152/73 152/73 O2 Sat by Pulse 93 94 94 Oximetry 08/16/20 08/16/20 08/16/20 02:00 02:16 02:30 Temperature Pulse Rate 111 H 109 H 110 H Pulse Rate [ From Monitor] Respiratory 28 H 22 27 H Rate Blood Pressure 154/75 154/75 155/73 O2 Sat by Pulse 93 94 94 Oximetry 08/16/20 08/16/20 08/16/20 02:46 03:00 03:16 Temperature Pulse Rate 110 H 111 H 111 H Pulse Rate [ From Monitor] Respiratory 31 H 29 H 30 H Rate Blood Pressure 155/73 136/72 136/72 O2 Sat by Pulse 94 95 95 Oximetry 08/16/20 08/16/20 08/16/20 03:21 03:30 03:46 Temperature 99.8 F H Pulse Rate 111 H 112 H Pulse Rate [ From Monitor] Respiratory 32 H 31 H Rate Blood Pressure 141/67 141/67 O2 Sat by Pulse 95 95 Oximetry 08/16/20 08/16/20 08/16/20 03:50 04:00 04:16 Temperature Pulse Rate 112 H 113 H 109 H Pulse Rate [ 115 H From Monitor] Respiratory 27 H 32 H Rate Blood Pressure 144/72 147/67 147/67 O2 Sat by Pulse 94 94 95 Oximetry 08/16/20 08/16/20 08/16/20 04:30 04:46 05:00 Temperature Pulse Rate 114 H 111 H 113 H Pulse Rate [ From Monitor] Respiratory 24 26 H 27 H Rate Blood Pressure 144/72 144/72 128/70 O2 Sat by Pulse 94 95 95 Oximetry 08/16/20 08/16/20 08/16/20 05:16 05:30 05:46 Temperature Pulse Rate 115 H 117 H 113 H Pulse Rate [ From Monitor] Respiratory 30 H 31 H 30 H Rate Blood Pressure 128/70 122/65 122/65 O2 Sat by Pulse 95 96 95 Oximetry 08/16/20 08/16/20 08/16/20 06:00 06:16 06:30 Temperature Pulse Rate 114 H 109 H 115 H Pulse Rate [ From Monitor] Respiratory 30 H 30 H 31 H Rate Blood Pressure 122/65 131/69 132/63 O2 Sat by Pulse 96 96 96 Oximetry 08/16/20 08/16/20 08/16/20 06:46 07:00 07:16 Temperature Pulse Rate 117 H 114 H 111 H Pulse Rate [ From Monitor] Respiratory 30 H 29 H 29 H Rate Blood Pressure 132/63 134/61 134/61 O2 Sat by Pulse 95 96 95 Oximetry 08/16/20 08/16/20 08/16/20 07:29 07:30 07:46 Temperature Pulse Rate 111 H 111 H 110 H Pulse Rate [ From Monitor] Respiratory 30 H 29 H Rate Blood Pressure 134/61 127/65 132/63 O2 Sat by Pulse 95 96 95 Oximetry 08/16/20 08/16/20 08/16/20 08:00 08:16 08:30 Temperature Pulse Rate 108 H 108 H 117 H Pulse Rate [ From Monitor] Respiratory 31 H 29 H 30 H Rate Blood Pressure 134/61 127/65 146/65 O2 Sat by Pulse 95 95 95 Oximetry 08/16/20 08:46 Temperature Pulse Rate 106 H Pulse Rate [ From Monitor] Respiratory 29 H Rate Blood Pressure 146/65 O2 Sat by Pulse 95 Oximetry Constitutional: other (orally intubated on vent) Eyes: non-icteric ENT: oropharynx moist Neck: supple Ascultation: Bilateral: diminished breath sounds, rhonchi, other (coarse BS bilaterally) Cardiovascular: regular rate and rhythm, other (tachycardia) Gastrointestinal: normoactive bowel sounds, soft, non-tender, non-distended Integumentary: normal Extremities: no cyanosis Neurologic: other (sedated) Psychiatric: other (sedated) CBC and BMP: 08/16/20 04:00 08/16/20 Unknown ABG, PT/INR, D-dimer: ABG ABG pH 7.298 (7.320-7.450) L 08/16/20 01:24 POC ABG pCO2 76.5 mmHg (32.0-48.0) H 08/16/20 01:24 POC ABG pO2 65.6 mmHg (83-108) L 08/16/20 01:24 POC ABG HCO3 36.6 08/16/20 01:24 PT/INR, D-dimer PT 13.7 Sec. (12.2-14.9) 07/18/20 04:31 INR 1.06 (0.87-1.13) 07/18/20 04:31 D-Dimer 5413.39 ng/mlDDU (0-234) H 08/12/20 08:32 Abnormal lab findings: Abnormal Labs 07/17/20 07/17/20 07/17/20 17:30 17:30 22:48 WBC RBC Hgb Hct MCV MCH MCHC 35 H RDW Plt Count Lymph % (Auto) 10.5 L Lymph # (Auto) 0.7 L Seg Neutrophils % 85.3 H Lymphocytes % (Manual) Seg Neutrophils # Seg Neutrophils # Man Lymphocytes # (Manual) D-Dimer 314.21 H ABG pH POC ABG pCO2 POC ABG pO2 ABG Hemoglobin ABG Oxyhemoglobin ABG Sodium ABG Potassium ABG Chloride ABG Glucose Sodium Potassium Chloride Carbon Dioxide BUN 1 L Creatinine Glucose 154 H POC Glucose Calcium Magnesium Ferritin Alkaline Phosphatase Lactate Dehydrogenase Total Creatine Kinase CK-MB (CK-2) C-Reactive Protein Total Protein Albumin Triglycerides Arterial Blood Glucose Arterial Blood Ionized Calcium Coronavirus (PCR) SARS-CoV-2 IgG Ab 07/17/20 07/17/20 07/18/20 22:48 22:48 04:31 WBC RBC Hgb Hct MCV MCH 33 H MCHC 35 H RDW 13.1 L Plt Count Lymph % (Auto) Lymph # (Auto) Seg Neutrophils % Lymphocytes % (Manual) 5.0 L Seg Neutrophils # Seg Neutrophils # Man 8.1 H Lymphocytes # (Manual) 0.4 L D-Dimer ABG pH POC ABG pCO2 POC ABG pO2 ABG Hemoglobin ABG Oxyhemoglobin ABG Sodium ABG Potassium ABG Chloride ABG Glucose Sodium Potassium Chloride Carbon Dioxide BUN Creatinine Glucose 124 H POC Glucose Calcium Magnesium Ferritin 889.3 H Alkaline Phosphatase Lactate Dehydrogenase 832 H Total Creatine Kinase CK-MB (CK-2) C-Reactive Protein 17.70 H Total Protein Albumin Triglycerides Arterial Blood Glucose Arterial Blood Ionized Calcium Coronavirus (PCR) SARS-CoV-2 IgG Ab 07/18/20 07/18/20 07/18/20 04:31 08:50 18:48 WBC RBC Hgb Hct MCV MCH MCHC RDW Plt Count Lymph % (Auto) Lymph # (Auto) Seg Neutrophils % Lymphocytes % (Manual) Seg Neutrophils # Seg Neutrophils # Man Lymphocytes # (Manual) D-Dimer 275.27 H ABG pH POC ABG pCO2 POC ABG pO2 ABG Hemoglobin ABG Oxyhemoglobin ABG Sodium ABG Potassium ABG Chloride ABG Glucose Sodium Potassium Chloride Carbon Dioxide 31 H D BUN 23 H Creatinine Glucose 143 H POC Glucose Calcium Magnesium Ferritin Alkaline Phosphatase Lactate Dehydrogenase Total Creatine Kinase CK-MB (CK-2) C-Reactive Protein Total Protein Albumin Triglycerides Arterial Blood Glucose Arterial Blood Ionized Calcium Coronavirus (PCR) Positive A SARS-CoV-2 IgG Ab 07/18/20 07/18/20 07/20/20 18:48 18:48 08:56 WBC RBC Hgb Hct MCV MCH MCHC RDW Plt Count Lymph % (Auto) Lymph # (Auto) Seg Neutrophils % Lymphocytes % (Manual) Seg Neutrophils # Seg Neutrophils # Man Lymphocytes # (Manual) D-Dimer ABG pH POC ABG pCO2 POC ABG pO2 ABG Hemoglobin ABG Oxyhemoglobin ABG Sodium ABG Potassium ABG Chloride ABG Glucose Sodium Potassium Chloride Carbon Dioxide BUN 22 H Creatinine Glucose 219 H POC Glucose Calcium Magnesium Ferritin 1164.0 H Alkaline Phosphatase Lactate Dehydrogenase 560 H 739 H Total Creatine Kinase CK-MB (CK-2) C-Reactive Protein 18.00 H 17.50 H Total Protein Albumin 3.0 L Triglycerides Arterial Blood Glucose Arterial Blood Ionized Calcium Coronavirus (PCR) SARS-CoV-2 IgG Ab 07/20/20 07/20/20 07/21/20 08:56 08:56 05:24 WBC RBC Hgb Hct MCV MCH MCHC RDW Plt Count Lymph % (Auto) Lymph # (Auto) Seg Neutrophils % Lymphocytes % (Manual) Seg Neutrophils # Seg Neutrophils # Man Lymphocytes # (Manual) D-Dimer 9523.70 H ABG pH POC ABG pCO2 POC ABG pO2 ABG Hemoglobin ABG Oxyhemoglobin ABG Sodium ABG Potassium ABG Chloride ABG Glucose Sodium Potassium Chloride Carbon Dioxide BUN Creatinine Glucose POC Glucose Calcium Magnesium Ferritin 1581.0 H Alkaline Phosphatase Lactate Dehydrogenase Total Creatine Kinase CK-MB (CK-2) C-Reactive Protein Total Protein Albumin Triglycerides Arterial Blood Glucose Arterial Blood Ionized Calcium Coronavirus (PCR) SARS-CoV-2 IgG Ab Reactive A 07/22/20 07/24/20 07/26/20 04:31 13:26 10:07 WBC RBC Hgb Hct MCV MCH MCHC RDW Plt Count Lymph % (Auto) Lymph # (Auto) Seg Neutrophils % Lymphocytes % (Manual) Seg Neutrophils # Seg Neutrophils # Man Lymphocytes # (Manual) D-Dimer > 43576 H ABG pH POC ABG pCO2 POC ABG pO2 ABG Hemoglobin ABG Oxyhemoglobin ABG Sodium ABG Potassium ABG Chloride ABG Glucose Sodium 146 H Potassium Chloride Carbon Dioxide 32 H BUN 28 H 26 H Creatinine Glucose 144 H 116 H POC Glucose Calcium 8.3 L Magnesium Ferritin Alkaline Phosphatase Lactate Dehydrogenase Total Creatine Kinase CK-MB (CK-2) C-Reactive Protein Total Protein Albumin 3.3 L Triglycerides Arterial Blood Glucose Arterial Blood Ionized Calcium Coronavirus (PCR) SARS-CoV-2 IgG Ab 07/26/20 07/26/20 07/27/20 10:07 10:07 19:45 WBC RBC Hgb Hct MCV MCH MCHC RDW Plt Count Lymph % (Auto) Lymph # (Auto) Seg Neutrophils % Lymphocytes % (Manual) Seg Neutrophils # Seg Neutrophils # Man Lymphocytes # (Manual) D-Dimer ABG pH POC ABG pCO2 POC ABG pO2 ABG Hemoglobin ABG Oxyhemoglobin ABG Sodium ABG Potassium ABG Chloride ABG Glucose Sodium Potassium Chloride 97.4 L Carbon Dioxide 33 H BUN 27 H Creatinine Glucose 175 H POC Glucose Calcium Magnesium Ferritin 1079.0 H Alkaline Phosphatase Lactate Dehydrogenase 708 H Total Creatine Kinase CK-MB (CK-2) C-Reactive Protein 6.10 H Total Protein Albumin Triglycerides Arterial Blood Glucose Arterial Blood Ionized Calcium Coronavirus (PCR) SARS-CoV-2 IgG Ab 07/29/20 07/30/20 07/30/20 02:09 10:33 11:54 WBC RBC Hgb Hct MCV MCH MCHC RDW Plt Count Lymph % (Auto) Lymph # (Auto) Seg Neutrophils % Lymphocytes % (Manual) Seg Neutrophils # Seg Neutrophils # Man Lymphocytes # (Manual) D-Dimer ABG pH POC ABG pCO2 POC ABG pO2 ABG Hemoglobin ABG Oxyhemoglobin ABG Sodium ABG Potassium ABG Chloride ABG Glucose Sodium Potassium Chloride Carbon Dioxide BUN Creatinine Glucose POC Glucose 183 H Calcium Magnesium 3.00 H Ferritin Alkaline Phosphatase Lactate Dehydrogenase Total Creatine Kinase 174 H CK-MB (CK-2) 4.5 H C-Reactive Protein Total Protein Albumin Triglycerides Arterial Blood Glucose Arterial Blood Ionized Calcium Coronavirus (PCR) SARS-CoV-2 IgG Ab 07/30/20 07/30/20 07/31/20 17:30 23:08 11:04 WBC RBC Hgb Hct MCV MCH MCHC RDW Plt Count Lymph % (Auto) Lymph # (Auto) Seg Neutrophils % Lymphocytes % (Manual) Seg Neutrophils # Seg Neutrophils # Man Lymphocytes # (Manual) D-Dimer ABG pH POC ABG pCO2 POC ABG pO2 ABG Hemoglobin ABG Oxyhemoglobin ABG Sodium ABG Potassium ABG Chloride ABG Glucose Sodium 151 H D Potassium Chloride 109.2 H Carbon Dioxide 32 H BUN 48 H Creatinine Glucose 165 H POC Glucose 199 H 194 H Calcium Magnesium Ferritin Alkaline Phosphatase 168 H Lactate Dehydrogenase Total Creatine Kinase CK-MB (CK-2) C-Reactive Protein Total Protein Albumin 3.1 L Triglycerides Arterial Blood Glucose Arterial Blood Ionized Calcium Coronavirus (PCR) SARS-CoV-2 IgG Ab 07/31/20 07/31/20 07/31/20 11:18 11:23 17:47 WBC RBC Hgb Hct MCV MCH MCHC RDW Plt Count Lymph % (Auto) Lymph # (Auto) Seg Neutrophils % Lymphocytes % (Manual) Seg Neutrophils # Seg Neutrophils # Man Lymphocytes # (Manual) D-Dimer ABG pH POC ABG pCO2 56.6 H POC ABG pO2 73.1 L ABG Hemoglobin ABG Oxyhemoglobin 92.1 L ABG Sodium ABG Potassium ABG Chloride 108.0 H ABG Glucose 169 H Sodium Potassium Chloride Carbon Dioxide BUN Creatinine Glucose POC Glucose 156 H 169 H Calcium Magnesium Ferritin Alkaline Phosphatase Lactate Dehydrogenase Total Creatine Kinase CK-MB (CK-2) C-Reactive Protein Total Protein Albumin Triglycerides Arterial Blood Glucose 169 H Arterial Blood Ionized Calcium Coronavirus (PCR) SARS-CoV-2 IgG Ab 07/31/20 07/31/20 07/31/20 20:58 23:18 23:55 WBC 19.8 H RBC Hgb Hct MCV 95 H MCH MCHC RDW 13.0 L Plt Count Lymph % (Auto) Lymph # (Auto) Seg Neutrophils % Lymphocytes % (Manual) Seg Neutrophils # Seg Neutrophils # Man Lymphocytes # (Manual) D-Dimer ABG pH POC ABG pCO2 POC ABG pO2 ABG Hemoglobin ABG Oxyhemoglobin ABG Sodium ABG Potassium ABG Chloride ABG Glucose Sodium Potassium Chloride Carbon Dioxide BUN Creatinine Glucose POC Glucose 293 H 211 H Calcium Magnesium Ferritin Alkaline Phosphatase Lactate Dehydrogenase Total Creatine Kinase CK-MB (CK-2) C-Reactive Protein Total Protein Albumin Triglycerides Arterial Blood Glucose Arterial Blood Ionized Calcium Coronavirus (PCR) SARS-CoV-2 IgG Ab 08/01/20 08/01/20 08/01/20 03:47 08:30 12:27 WBC RBC Hgb Hct MCV MCH MCHC RDW Plt Count Lymph % (Auto) Lymph # (Auto) Seg Neutrophils % Lymphocytes % (Manual) Seg Neutrophils # Seg Neutrophils # Man Lymphocytes # (Manual) D-Dimer ABG pH POC ABG pCO2 49.8 H POC ABG pO2 123.4 H ABG Hemoglobin ABG Oxyhemoglobin ABG Sodium ABG Potassium 4.6 H ABG Chloride 111.0 H ABG Glucose 130 H Sodium 154 H Potassium Chloride 115.1 H Carbon Dioxide 32 H BUN 49 H Creatinine Glucose 492 H POC Glucose 161 H Calcium 7.2 L D Magnesium Ferritin Alkaline Phosphatase Lactate Dehydrogenase Total Creatine Kinase CK-MB (CK-2) C-Reactive Protein Total Protein Albumin Triglycerides Arterial Blood Glucose 130 H Arterial Blood Ionized Calcium 4.5 L Coronavirus (PCR) SARS-CoV-2 IgG Ab 08/01/20 08/01/20 08/02/20 16:55 23:06 05:00 WBC RBC Hgb Hct MCV MCH MCHC RDW Plt Count Lymph % (Auto) Lymph # (Auto) Seg Neutrophils % Lymphocytes % (Manual) Seg Neutrophils # Seg Neutrophils # Man Lymphocytes # (Manual) D-Dimer ABG pH POC ABG pCO2 52.5 H POC ABG pO2 69.8 L ABG Hemoglobin ABG Oxyhemoglobin ABG Sodium 147.2 H ABG Potassium ABG Chloride 110.0 H ABG Glucose 177 H Sodium Potassium Chloride Carbon Dioxide BUN Creatinine Glucose POC Glucose 195 H 162 H Calcium Magnesium Ferritin Alkaline Phosphatase Lactate Dehydrogenase Total Creatine Kinase CK-MB (CK-2) C-Reactive Protein Total Protein Albumin Triglycerides Arterial Blood Glucose 177 H Arterial Blood Ionized Calcium Coronavirus (PCR) SARS-CoV-2 IgG Ab 08/02/20 08/02/20 08/02/20 05:01 12:05 17:13 WBC RBC Hgb Hct MCV MCH MCHC RDW Plt Count Lymph % (Auto) Lymph # (Auto) Seg Neutrophils % Lymphocytes % (Manual) Seg Neutrophils # Seg Neutrophils # Man Lymphocytes # (Manual) D-Dimer ABG pH POC ABG pCO2 POC ABG pO2 ABG Hemoglobin ABG Oxyhemoglobin ABG Sodium ABG Potassium ABG Chloride ABG Glucose Sodium Potassium Chloride Carbon Dioxide BUN Creatinine Glucose POC Glucose 146 H 166 H 209 H Calcium Magnesium Ferritin Alkaline Phosphatase Lactate Dehydrogenase Total Creatine Kinase CK-MB (CK-2) C-Reactive Protein Total Protein Albumin Triglycerides Arterial Blood Glucose Arterial Blood Ionized Calcium Coronavirus (PCR) SARS-CoV-2 IgG Ab 08/02/20 08/03/20 08/03/20 23:26 04:06 04:34 WBC RBC Hgb Hct MCV MCH MCHC RDW Plt Count Lymph % (Auto) Lymph # (Auto) Seg Neutrophils % Lymphocytes % (Manual) Seg Neutrophils # Seg Neutrophils # Man Lymphocytes # (Manual) D-Dimer ABG pH POC ABG pCO2 55.6 H POC ABG pO2 66.1 L ABG Hemoglobin 11.9 L ABG Oxyhemoglobin 91.1 L ABG Sodium 145.7 H ABG Potassium 4.8 H ABG Chloride 111.0 H ABG Glucose 195 H Sodium Potassium Chloride Carbon Dioxide BUN Creatinine Glucose POC Glucose 157 H Calcium Magnesium Ferritin Alkaline Phosphatase Lactate Dehydrogenase Total Creatine Kinase CK-MB (CK-2) C-Reactive Protein Total Protein Albumin Triglycerides 207 H Arterial Blood Glucose 195 H Arterial Blood Ionized Calcium Coronavirus (PCR) SARS-CoV-2 IgG Ab 08/03/20 08/03/20 08/03/20 05:00 11:55 17:15 WBC RBC Hgb Hct MCV MCH MCHC RDW Plt Count Lymph % (Auto) Lymph # (Auto) Seg Neutrophils % Lymphocytes % (Manual) Seg Neutrophils # Seg Neutrophils # Man Lymphocytes # (Manual) D-Dimer ABG pH POC ABG pCO2 POC ABG pO2 ABG Hemoglobin ABG Oxyhemoglobin ABG Sodium ABG Potassium ABG Chloride ABG Glucose Sodium Potassium Chloride Carbon Dioxide BUN Creatinine Glucose POC Glucose 179 H 173 H 217 H Calcium Magnesium Ferritin Alkaline Phosphatase Lactate Dehydrogenase Total Creatine Kinase CK-MB (CK-2) C-Reactive Protein Total Protein Albumin Triglycerides Arterial Blood Glucose Arterial Blood Ionized Calcium Coronavirus (PCR) SARS-CoV-2 IgG Ab 08/03/20 08/04/20 08/04/20 23:01 03:59 05:30 WBC RBC Hgb Hct MCV MCH MCHC RDW Plt Count Lymph % (Auto) Lymph # (Auto) Seg Neutrophils % Lymphocytes % (Manual) Seg Neutrophils # Seg Neutrophils # Man Lymphocytes # (Manual) D-Dimer ABG pH POC ABG pCO2 54.6 H POC ABG pO2 66.2 L ABG Hemoglobin 10.8 L ABG Oxyhemoglobin 91.5 L ABG Sodium ABG Potassium ABG Chloride 110.0 H ABG Glucose 201 H Sodium Potassium Chloride Carbon Dioxide BUN Creatinine Glucose POC Glucose 222 H 137 H Calcium Magnesium Ferritin Alkaline Phosphatase Lactate Dehydrogenase Total Creatine Kinase CK-MB (CK-2) C-Reactive Protein Total Protein Albumin Triglycerides Arterial Blood Glucose 201 H Arterial Blood Ionized Calcium Coronavirus (PCR) SARS-CoV-2 IgG Ab 08/04/20 08/04/20 08/04/20 06:57 11:50 17:29 WBC RBC Hgb Hct MCV MCH MCHC RDW Plt Count Lymph % (Auto) Lymph # (Auto) Seg Neutrophils % Lymphocytes % (Manual) Seg Neutrophils # Seg Neutrophils # Man Lymphocytes # (Manual) D-Dimer ABG pH POC ABG pCO2 POC ABG pO2 ABG Hemoglobin ABG Oxyhemoglobin ABG Sodium ABG Potassium ABG Chloride ABG Glucose Sodium 151 H Potassium Chloride 111.3 H Carbon Dioxide 36 H BUN 32 H Creatinine Glucose 160 H POC Glucose 158 H 180 H Calcium 8.2 L Magnesium 2.60 H Ferritin Alkaline Phosphatase Lactate Dehydrogenase Total Creatine Kinase CK-MB (CK-2) C-Reactive Protein Total Protein Albumin Triglycerides Arterial Blood Glucose Arterial Blood Ionized Calcium Coronavirus (PCR) SARS-CoV-2 IgG Ab 08/04/20 08/05/20 08/05/20 23:01 04:49 05:11 WBC RBC Hgb Hct MCV MCH MCHC RDW Plt Count Lymph % (Auto) Lymph # (Auto) Seg Neutrophils % Lymphocytes % (Manual) Seg Neutrophils # Seg Neutrophils # Man Lymphocytes # (Manual) D-Dimer ABG pH POC ABG pCO2 56.7 H POC ABG pO2 80.6 L ABG Hemoglobin 10.9 L ABG Oxyhemoglobin ABG Sodium 145.9 H ABG Potassium ABG Chloride 109.0 H ABG Glucose 160 H Sodium Potassium Chloride Carbon Dioxide BUN Creatinine Glucose POC Glucose 160 H 134 H Calcium Magnesium Ferritin Alkaline Phosphatase Lactate Dehydrogenase Total Creatine Kinase CK-MB (CK-2) C-Reactive Protein Total Protein Albumin Triglycerides Arterial Blood Glucose 160 H Arterial Blood Ionized Calcium Coronavirus (PCR) SARS-CoV-2 IgG Ab 08/05/20 08/05/20 08/05/20 11:40 16:54 23:29 WBC RBC Hgb Hct MCV MCH MCHC RDW Plt Count Lymph % (Auto) Lymph # (Auto) Seg Neutrophils % Lymphocytes % (Manual) Seg Neutrophils # Seg Neutrophils # Man Lymphocytes # (Manual) D-Dimer ABG pH POC ABG pCO2 POC ABG pO2 ABG Hemoglobin ABG Oxyhemoglobin ABG Sodium ABG Potassium ABG Chloride ABG Glucose Sodium Potassium Chloride Carbon Dioxide BUN Creatinine Glucose POC Glucose 137 H 243 H 154 H Calcium Magnesium Ferritin Alkaline Phosphatase Lactate Dehydrogenase Total Creatine Kinase CK-MB (CK-2) C-Reactive Protein Total Protein Albumin Triglycerides Arterial Blood Glucose Arterial Blood Ionized Calcium Coronavirus (PCR) SARS-CoV-2 IgG Ab 08/06/20 08/06/20 08/06/20 05:24 06:00 08:59 WBC 14.1 H RBC Hgb 11.5 L Hct MCV 98 H MCH MCHC RDW Plt Count 107 L Lymph % (Auto) Lymph # (Auto) Seg Neutrophils % Lymphocytes % (Manual) Seg Neutrophils # Seg Neutrophils # Man Lymphocytes # (Manual) D-Dimer ABG pH POC ABG pCO2 58.9 H POC ABG pO2 53.0 L ABG Hemoglobin ABG Oxyhemoglobin 85.7 L ABG Sodium 148.4 H ABG Potassium 4.7 H ABG Chloride 109.0 H ABG Glucose 125 H Sodium Potassium Chloride Carbon Dioxide BUN Creatinine Glucose POC Glucose 122 H Calcium Magnesium Ferritin Alkaline Phosphatase Lactate Dehydrogenase Total Creatine Kinase CK-MB (CK-2) C-Reactive Protein Total Protein Albumin Triglycerides Arterial Blood Glucose 125 H Arterial Blood Ionized Calcium Coronavirus (PCR) SARS-CoV-2 IgG Ab 08/06/20 08/06/20 08/06/20 08:59 12:34 17:43 WBC RBC Hgb Hct MCV MCH MCHC RDW Plt Count Lymph % (Auto) Lymph # (Auto) Seg Neutrophils % Lymphocytes % (Manual) Seg Neutrophils # Seg Neutrophils # Man Lymphocytes # (Manual) D-Dimer ABG pH POC ABG pCO2 POC ABG pO2 ABG Hemoglobin ABG Oxyhemoglobin ABG Sodium ABG Potassium ABG Chloride ABG Glucose Sodium 151 H Potassium Chloride 110.7 H Carbon Dioxide 36 H BUN 29 H Creatinine 0.7 L Glucose 194 H POC Glucose 193 H 204 H Calcium Magnesium Ferritin Alkaline Phosphatase Lactate Dehydrogenase Total Creatine Kinase CK-MB (CK-2) C-Reactive Protein Total Protein Albumin Triglycerides Arterial Blood Glucose Arterial Blood Ionized Calcium Coronavirus (PCR) SARS-CoV-2 IgG Ab 08/06/20 08/07/20 08/07/20 23:25 04:00 04:00 WBC RBC 3.59 L Hgb 11.3 L Hct 35.0 L MCV 97 H MCH MCHC RDW Plt Count 103 L Lymph % (Auto) 11.5 L Lymph # (Auto) Seg Neutrophils % 82.9 H Lymphocytes % (Manual) Seg Neutrophils # 9.0 H Seg Neutrophils # Man Lymphocytes # (Manual) D-Dimer ABG pH POC ABG pCO2 POC ABG pO2 ABG Hemoglobin ABG Oxyhemoglobin ABG Sodium ABG Potassium ABG Chloride ABG Glucose Sodium 151 H Potassium Chloride 109.6 H Carbon Dioxide 34 H BUN 29 H Creatinine 0.5 L Glucose 134 H POC Glucose 150 H Calcium Magnesium Ferritin Alkaline Phosphatase Lactate Dehydrogenase Total Creatine Kinase CK-MB (CK-2) C-Reactive Protein Total Protein 5.4 L Albumin 2.8 L Triglycerides Arterial Blood Glucose Arterial Blood Ionized Calcium Coronavirus (PCR) SARS-CoV-2 IgG Ab 08/07/20 08/07/20 08/07/20 04:00 04:55 05:16 WBC RBC Hgb Hct MCV MCH MCHC RDW Plt Count Lymph % (Auto) Lymph # (Auto) Seg Neutrophils % Lymphocytes % (Manual) Seg Neutrophils # Seg Neutrophils # Man Lymphocytes # (Manual) D-Dimer ABG pH POC ABG pCO2 62.8 H POC ABG pO2 75.0 L ABG Hemoglobin 11.9 L ABG Oxyhemoglobin 93.2 L ABG Sodium 148.2 H ABG Potassium ABG Chloride 108.0 H ABG Glucose 150 H Sodium Potassium Chloride Carbon Dioxide BUN Creatinine Glucose POC Glucose 116 H Calcium Magnesium Ferritin Alkaline Phosphatase Lactate Dehydrogenase Total Creatine Kinase CK-MB (CK-2) C-Reactive Protein Total Protein Albumin Triglycerides 250 H Arterial Blood Glucose 150 H Arterial Blood Ionized Calcium Coronavirus (PCR) SARS-CoV-2 IgG Ab 08/07/20 08/07/20 08/07/20 12:36 17:46 23:09 WBC RBC Hgb Hct MCV MCH MCHC RDW Plt Count Lymph % (Auto) Lymph # (Auto) Seg Neutrophils % Lymphocytes % (Manual) Seg Neutrophils # Seg Neutrophils # Man Lymphocytes # (Manual) D-Dimer ABG pH POC ABG pCO2 POC ABG pO2 ABG Hemoglobin ABG Oxyhemoglobin ABG Sodium ABG Potassium ABG Chloride ABG Glucose Sodium Potassium Chloride Carbon Dioxide BUN Creatinine Glucose POC Glucose 160 H 168 H 111 H Calcium Magnesium Ferritin Alkaline Phosphatase Lactate Dehydrogenase Total Creatine Kinase CK-MB (CK-2) C-Reactive Protein Total Protein Albumin Triglycerides Arterial Blood Glucose Arterial Blood Ionized Calcium Coronavirus (PCR) SARS-CoV-2 IgG Ab 08/08/20 08/08/20 08/08/20 04:41 05:13 11:57 WBC RBC Hgb Hct MCV MCH MCHC RDW Plt Count Lymph % (Auto) Lymph # (Auto) Seg Neutrophils % Lymphocytes % (Manual) Seg Neutrophils # Seg Neutrophils # Man Lymphocytes # (Manual) D-Dimer ABG pH POC ABG pCO2 63.1 H POC ABG pO2 70.7 L ABG Hemoglobin 11.5 L ABG Oxyhemoglobin 91.0 L ABG Sodium 148.5 H ABG Potassium ABG Chloride 108.0 H ABG Glucose 102 H Sodium Potassium Chloride Carbon Dioxide BUN Creatinine Glucose POC Glucose 122 H 225 H Calcium Magnesium Ferritin Alkaline Phosphatase Lactate Dehydrogenase Total Creatine Kinase CK-MB (CK-2) C-Reactive Protein Total Protein Albumin Triglycerides Arterial Blood Glucose 102 H Arterial Blood Ionized Calcium Coronavirus (PCR) SARS-CoV-2 IgG Ab 08/08/20 08/08/20 08/09/20 17:16 23:06 05:22 WBC RBC Hgb Hct MCV MCH MCHC RDW Plt Count Lymph % (Auto) Lymph # (Auto) Seg Neutrophils % Lymphocytes % (Manual) Seg Neutrophils # Seg Neutrophils # Man Lymphocytes # (Manual) D-Dimer ABG pH POC ABG pCO2 POC ABG pO2 ABG Hemoglobin ABG Oxyhemoglobin ABG Sodium ABG Potassium ABG Chloride ABG Glucose Sodium Potassium Chloride Carbon Dioxide BUN Creatinine Glucose POC Glucose 188 H 129 H 112 H Calcium Magnesium Ferritin Alkaline Phosphatase Lactate Dehydrogenase Total Creatine Kinase CK-MB (CK-2) C-Reactive Protein Total Protein Albumin Triglycerides Arterial Blood Glucose Arterial Blood Ionized Calcium Coronavirus (PCR) SARS-CoV-2 IgG Ab 08/09/20 08/09/20 08/09/20 05:44 06:49 11:56 WBC RBC Hgb Hct MCV MCH MCHC RDW Plt Count Lymph % (Auto) Lymph # (Auto) Seg Neutrophils % Lymphocytes % (Manual) Seg Neutrophils # Seg Neutrophils # Man Lymphocytes # (Manual) D-Dimer ABG pH POC ABG pCO2 67.9 H POC ABG pO2 73.4 L ABG Hemoglobin 10.8 L ABG Oxyhemoglobin 92.7 L ABG Sodium 146.4 H ABG Potassium ABG Chloride ABG Glucose 165 H Sodium 151 H Potassium Chloride 108.8 H Carbon Dioxide 39 H BUN 32 H Creatinine 0.6 L Glucose 189 H POC Glucose 217 H Calcium 8.1 L Magnesium Ferritin Alkaline Phosphatase Lactate Dehydrogenase Total Creatine Kinase CK-MB (CK-2) C-Reactive Protein Total Protein Albumin Triglycerides Arterial Blood Glucose 165 H Arterial Blood Ionized Calcium Coronavirus (PCR) SARS-CoV-2 IgG Ab 08/09/20 08/09/20 08/10/20 17:01 23:35 05:00 WBC RBC Hgb Hct MCV MCH MCHC RDW Plt Count Lymph % (Auto) Lymph # (Auto) Seg Neutrophils % Lymphocytes % (Manual) Seg Neutrophils # Seg Neutrophils # Man Lymphocytes # (Manual) D-Dimer ABG pH POC ABG pCO2 POC ABG pO2 ABG Hemoglobin ABG Oxyhemoglobin ABG Sodium ABG Potassium ABG Chloride ABG Glucose Sodium 125 L D Potassium 3.5 L Chloride 88.7 L Carbon Dioxide 35 H BUN 25 H Creatinine 0.5 L Glucose 465 H POC Glucose 172 H 125 H Calcium 6.3 L D Magnesium Ferritin Alkaline Phosphatase Lactate Dehydrogenase Total Creatine Kinase CK-MB (CK-2) C-Reactive Protein Total Protein Albumin Triglycerides 1175 H Arterial Blood Glucose Arterial Blood Ionized Calcium Coronavirus (PCR) SARS-CoV-2 IgG Ab 08/10/20 08/10/20 08/10/20 05:09 05:24 08:00 WBC RBC Hgb Hct MCV MCH MCHC RDW Plt Count Lymph % (Auto) Lymph # (Auto) Seg Neutrophils % Lymphocytes % (Manual) Seg Neutrophils # Seg Neutrophils # Man Lymphocytes # (Manual) D-Dimer ABG pH 7.306 L POC ABG pCO2 75.1 H POC ABG pO2 76.1 L ABG Hemoglobin 10.7 L ABG Oxyhemoglobin ABG Sodium ABG Potassium ABG Chloride ABG Glucose 177 H Sodium 131 L Potassium Chloride 93.0 L Carbon Dioxide 35 H BUN 28 H Creatinine 0.6 L Glucose 433 H POC Glucose 161 H Calcium 6.6 L Magnesium Ferritin Alkaline Phosphatase Lactate Dehydrogenase Total Creatine Kinase CK-MB (CK-2) C-Reactive Protein Total Protein Albumin Triglycerides 869 H Arterial Blood Glucose 177 H Arterial Blood Ionized Calcium Coronavirus (PCR) SARS-CoV-2 IgG Ab 08/10/20 08/10/20 08/10/20 11:15 13:23 13:23 WBC RBC 3.18 L Hgb 10.1 L Hct 31.3 L MCV 98 H MCH MCHC RDW Plt Count 123 L Lymph % (Auto) Lymph # (Auto) Seg Neutrophils % Lymphocytes % (Manual) Seg Neutrophils # Seg Neutrophils # Man Lymphocytes # (Manual) D-Dimer ABG pH POC ABG pCO2 POC ABG pO2 ABG Hemoglobin ABG Oxyhemoglobin ABG Sodium ABG Potassium ABG Chloride ABG Glucose Sodium Potassium Chloride Carbon Dioxide 37 H BUN 29 H Creatinine 0.6 L Glucose 313 H POC Glucose 246 H Calcium 7.4 L Magnesium Ferritin Alkaline Phosphatase Lactate Dehydrogenase Total Creatine Kinase CK-MB (CK-2) C-Reactive Protein Total Protein Albumin Triglycerides Arterial Blood Glucose Arterial Blood Ionized Calcium Coronavirus (PCR) SARS-CoV-2 IgG Ab 08/10/20 08/10/20 08/10/20 13:23 16:43 23:20 WBC RBC Hgb Hct MCV MCH MCHC RDW Plt Count Lymph % (Auto) Lymph # (Auto) Seg Neutrophils % Lymphocytes % (Manual) Seg Neutrophils # Seg Neutrophils # Man Lymphocytes # (Manual) D-Dimer ABG pH POC ABG pCO2 POC ABG pO2 ABG Hemoglobin ABG Oxyhemoglobin ABG Sodium ABG Potassium ABG Chloride ABG Glucose Sodium Potassium Chloride Carbon Dioxide BUN Creatinine Glucose POC Glucose 238 H 111 H Calcium Magnesium Ferritin Alkaline Phosphatase Lactate Dehydrogenase Total Creatine Kinase CK-MB (CK-2) C-Reactive Protein 22.70 H Total Protein Albumin Triglycerides Arterial Blood Glucose Arterial Blood Ionized Calcium Coronavirus (PCR) SARS-CoV-2 IgG Ab 08/11/20 08/11/2021 04:33 05:19 09:00 WBC RBC Hgb Hct MCV MCH MCHC RDW Plt Count Lymph % (Auto) Lymph # (Auto) Seg Neutrophils % Lymphocytes % (Manual) Seg Neutrophils # Seg Neutrophils # Man Lymphocytes # (Manual) D-Dimer ABG pH POC ABG pCO2 66.9 H POC ABG pO2 65.2 L ABG Hemoglobin 10.5 L ABG Oxyhemoglobin 91.7 L ABG Sodium ABG Potassium ABG Chloride ABG Glucose 124 H Sodium Potassium Chloride Carbon Dioxide 41 H* BUN 30 H Creatinine 0.5 L Glucose 204 H POC Glucose 106 H Calcium 8.1 L Magnesium Ferritin Alkaline Phosphatase Lactate Dehydrogenase Total Creatine Kinase CK-MB (CK-2) C-Reactive Protein Total Protein Albumin Triglycerides Arterial Blood Glucose 124 H Arterial Blood Ionized Calcium 4.5 L Coronavirus (PCR) SARS-CoV-2 IgG Ab 08/11/20 08/11/20 08/11/20 09:00 12:08 17:01 WBC RBC 3.01 L Hgb 9.6 L Hct 29.2 L MCV 97 H MCH MCHC RDW Plt Count Lymph % (Auto) Lymph # (Auto) Seg Neutrophils % Lymphocytes % (Manual) Seg Neutrophils # Seg Neutrophils # Man Lymphocytes # (Manual) D-Dimer ABG pH POC ABG pCO2 POC ABG pO2 ABG Hemoglobin ABG Oxyhemoglobin ABG Sodium ABG Potassium ABG Chloride ABG Glucose Sodium Potassium Chloride Carbon Dioxide BUN Creatinine Glucose POC Glucose 201 H 150 H Calcium Magnesium Ferritin Alkaline Phosphatase Lactate Dehydrogenase Total Creatine Kinase CK-MB (CK-2) C-Reactive Protein Total Protein Albumin Triglycerides Arterial Blood Glucose Arterial Blood Ionized Calcium Coronavirus (PCR) SARS-CoV-2 IgG Ab 08/11/20 08/12/20 08/12/20 23:17 03:31 04:00 WBC RBC 2.98 L Hgb 9.4 L Hct 28.7 L MCV 97 H MCH MCHC RDW Plt Count Lymph % (Auto) Lymph # (Auto) Seg Neutrophils % Lymphocytes % (Manual) Seg Neutrophils # Seg Neutrophils # Man Lymphocytes # (Manual) D-Dimer ABG pH POC ABG pCO2 65.1 H POC ABG pO2 ABG Hemoglobin 9.9 L ABG Oxyhemoglobin ABG Sodium 145.6 H ABG Potassium ABG Chloride ABG Glucose 106 H Sodium Potassium Chloride Carbon Dioxide BUN Creatinine Glucose POC Glucose 128 H Calcium Magnesium Ferritin Alkaline Phosphatase Lactate Dehydrogenase Total Creatine Kinase CK-MB (CK-2) C-Reactive Protein Total Protein Albumin Triglycerides Arterial Blood Glucose 106 H Arterial Blood Ionized Calcium Coronavirus (PCR) SARS-CoV-2 IgG Ab 08/12/20 08/12/20 08/12/20 04:00 07:14 08:32 WBC RBC Hgb Hct MCV MCH MCHC RDW Plt Count Lymph % (Auto) Lymph # (Auto) Seg Neutrophils % Lymphocytes % (Manual) Seg Neutrophils # Seg Neutrophils # Man Lymphocytes # (Manual) D-Dimer 5413.39 H ABG pH POC ABG pCO2 POC ABG pO2 ABG Hemoglobin ABG Oxyhemoglobin ABG Sodium ABG Potassium ABG Chloride ABG Glucose Sodium 149 H 149 H Potassium Chloride Carbon Dioxide 39 H 39 H BUN 31 H 33 H Creatinine 0.5 L 0.5 L Glucose 173 H POC Glucose Calcium 8.0 L 8.1 L Magnesium Ferritin Alkaline Phosphatase Lactate Dehydrogenase Total Creatine Kinase CK-MB (CK-2) C-Reactive Protein Total Protein Albumin Triglycerides Arterial Blood Glucose Arterial Blood Ionized Calcium Coronavirus (PCR) SARS-CoV-2 IgG Ab 08/12/20 08/12/20 08/12/20 08:32 08:32 12:15 WBC RBC Hgb Hct MCV MCH MCHC RDW Plt Count Lymph % (Auto) Lymph # (Auto) Seg Neutrophils % Lymphocytes % (Manual) Seg Neutrophils # Seg Neutrophils # Man Lymphocytes # (Manual) D-Dimer ABG pH POC ABG pCO2 POC ABG pO2 ABG Hemoglobin ABG Oxyhemoglobin ABG Sodium ABG Potassium ABG Chloride ABG Glucose Sodium Potassium Chloride Carbon Dioxide BUN Creatinine Glucose POC Glucose 270 H Calcium Magnesium Ferritin 1401.0 H Alkaline Phosphatase Lactate Dehydrogenase 378 H Total Creatine Kinase CK-MB (CK-2) C-Reactive Protein 19.50 H Total Protein Albumin Triglycerides Arterial Blood Glucose Arterial Blood Ionized Calcium Coronavirus (PCR) SARS-CoV-2 IgG Ab 08/12/20 08/12/20 08/13/20 17:52 23:07 05:13 WBC RBC Hgb Hct MCV MCH MCHC RDW Plt Count Lymph % (Auto) Lymph # (Auto) Seg Neutrophils % Lymphocytes % (Manual) Seg Neutrophils # Seg Neutrophils # Man Lymphocytes # (Manual) D-Dimer ABG pH POC ABG pCO2 POC ABG pO2 ABG Hemoglobin ABG Oxyhemoglobin ABG Sodium ABG Potassium ABG Chloride ABG Glucose Sodium Potassium Chloride Carbon Dioxide BUN Creatinine Glucose POC Glucose 178 H 128 H 130 H Calcium Magnesium Ferritin Alkaline Phosphatase Lactate Dehydrogenase Total Creatine Kinase CK-MB (CK-2) C-Reactive Protein Total Protein Albumin Triglycerides Arterial Blood Glucose Arterial Blood Ionized Calcium Coronavirus (PCR) SARS-CoV-2 IgG Ab 08/13/20 08/13/20 08/13/20 06:30 12:08 14:12 WBC RBC Hgb Hct MCV MCH MCHC RDW Plt Count Lymph % (Auto) Lymph # (Auto) Seg Neutrophils % Lymphocytes % (Manual) Seg Neutrophils # Seg Neutrophils # Man Lymphocytes # (Manual) D-Dimer ABG pH 7.288 L POC ABG pCO2 81.8 H POC ABG pO2 ABG Hemoglobin 10.3 L ABG Oxyhemoglobin ABG Sodium 146.7 H ABG Potassium 5.3 H ABG Chloride ABG Glucose 278 H Sodium 148 H Potassium Chloride Carbon Dioxide 41 H* BUN 31 H Creatinine 0.5 L Glucose 145 H POC Glucose 205 H Calcium 8.2 L Magnesium Ferritin Alkaline Phosphatase Lactate Dehydrogenase Total Creatine Kinase CK-MB (CK-2) C-Reactive Protein Total Protein Albumin Triglycerides 167 H Arterial Blood Glucose 278 H Arterial Blood Ionized Calcium Coronavirus (PCR) SARS-CoV-2 IgG Ab 08/13/20 08/13/20 08/14/20 17:39 23:23 04:00 WBC RBC Hgb Hct MCV MCH MCHC RDW Plt Count Lymph % (Auto) Lymph # (Auto) Seg Neutrophils % Lymphocytes % (Manual) Seg Neutrophils # Seg Neutrophils # Man Lymphocytes # (Manual) D-Dimer ABG pH 7.318 L POC ABG pCO2 77.2 H POC ABG pO2 82.4 L ABG Hemoglobin 10.2 L ABG Oxyhemoglobin ABG Sodium 147.2 H ABG Potassium 4.6 H ABG Chloride ABG Glucose 212 H Sodium Potassium Chloride Carbon Dioxide BUN Creatinine Glucose POC Glucose 195 H 191 H Calcium Magnesium Ferritin Alkaline Phosphatase Lactate Dehydrogenase Total Creatine Kinase CK-MB (CK-2) C-Reactive Protein Total Protein Albumin Triglycerides Arterial Blood Glucose 212 H Arterial Blood Ionized Calcium Coronavirus (PCR) SARS-CoV-2 IgG Ab 08/14/20 08/14/20 08/14/20 05:00 05:13 08:50 WBC RBC 2.67 L Hgb 8.5 L Hct 26.6 L MCV 100 H MCH MCHC RDW Plt Count Lymph % (Auto) Lymph # (Auto) Seg Neutrophils % Lymphocytes % (Manual) Seg Neutrophils # Seg Neutrophils # Man Lymphocytes # (Manual) D-Dimer ABG pH POC ABG pCO2 POC ABG pO2 ABG Hemoglobin ABG Oxyhemoglobin ABG Sodium ABG Potassium ABG Chloride ABG Glucose Sodium 151 H Potassium Chloride Carbon Dioxide 43 H* BUN 41 H Creatinine 0.6 L Glucose 195 H POC Glucose 183 H Calcium 7.9 L Magnesium Ferritin Alkaline Phosphatase Lactate Dehydrogenase Total Creatine Kinase CK-MB (CK-2) C-Reactive Protein Total Protein Albumin Triglycerides Arterial Blood Glucose Arterial Blood Ionized Calcium Coronavirus (PCR) SARS-CoV-2 IgG Ab 08/14/20 08/14/20 08/14/20 11:32 17:50 23:39 WBC RBC Hgb Hct MCV MCH MCHC RDW Plt Count Lymph % (Auto) Lymph # (Auto) Seg Neutrophils % Lymphocytes % (Manual) Seg Neutrophils # Seg Neutrophils # Man Lymphocytes # (Manual) D-Dimer ABG pH POC ABG pCO2 POC ABG pO2 ABG Hemoglobin ABG Oxyhemoglobin ABG Sodium ABG Potassium ABG Chloride ABG Glucose Sodium Potassium Chloride Carbon Dioxide BUN Creatinine Glucose POC Glucose 147 H 244 H 138 H Calcium Magnesium Ferritin Alkaline Phosphatase Lactate Dehydrogenase Total Creatine Kinase CK-MB (CK-2) C-Reactive Protein Total Protein Albumin Triglycerides Arterial Blood Glucose Arterial Blood Ionized Calcium Coronavirus (PCR) SARS-CoV-2 IgG Ab 08/15/20 08/15/20 08/15/20 04:03 05:12 11:26 WBC RBC Hgb Hct MCV MCH MCHC RDW Plt Count Lymph % (Auto) Lymph # (Auto) Seg Neutrophils % Lymphocytes % (Manual) Seg Neutrophils # Seg Neutrophils # Man Lymphocytes # (Manual) D-Dimer ABG pH POC ABG pCO2 67.3 H POC ABG pO2 68.7 L ABG Hemoglobin 11.5 L ABG Oxyhemoglobin 91.5 L ABG Sodium ABG Potassium ABG Chloride ABG Glucose 172 H Sodium Potassium Chloride Carbon Dioxide BUN Creatinine Glucose POC Glucose 150 H 181 H Calcium Magnesium Ferritin Alkaline Phosphatase Lactate Dehydrogenase Total Creatine Kinase CK-MB (CK-2) C-Reactive Protein Total Protein Albumin Triglycerides Arterial Blood Glucose 172 H Arterial Blood Ionized Calcium Coronavirus (PCR) SARS-CoV-2 IgG Ab 08/15/20 08/15/2008/15/21 17:08 23:34 Unknown WBC 11.9 H RBC 2.70 L Hgb 8.5 L Hct 26.6 L MCV 99 H MCH MCHC RDW Plt Count Lymph % (Auto) Lymph # (Auto) Seg Neutrophils % Lymphocytes % (Manual) Seg Neutrophils # Seg Neutrophils # Man Lymphocytes # (Manual) D-Dimer ABG pH POC ABG pCO2 POC ABG pO2 ABG Hemoglobin ABG Oxyhemoglobin ABG Sodium ABG Potassium ABG Chloride ABG Glucose Sodium Potassium Chloride Carbon Dioxide BUN Creatinine Glucose POC Glucose 187 H 160 H Calcium Magnesium Ferritin Alkaline Phosphatase Lactate Dehydrogenase Total Creatine Kinase CK-MB (CK-2) C-Reactive Protein Total Protein Albumin Triglycerides Arterial Blood Glucose Arterial Blood Ionized Calcium Coronavirus (PCR) SARS-CoV-2 IgG Ab 08/15/20 08/16/20 08/16/20 Unknown 01:24 04:00 WBC 13.3 H RBC 2.75 L Hgb 8.4 L Hct 27.2 L MCV 99 H MCH MCHC 31 L RDW Plt Count Lymph % (Auto) Lymph # (Auto) Seg Neutrophils % Lymphocytes % (Manual) Seg Neutrophils # Seg Neutrophils # Man Lymphocytes # (Manual) D-Dimer ABG pH 7.298 L POC ABG pCO2 76.5 H POC ABG pO2 65.6 L ABG Hemoglobin 9.7 L ABG Oxyhemoglobin 89 L ABG Sodium ABG Potassium ABG Chloride ABG Glucose 201 H Sodium Potassium Chloride Carbon Dioxide 41 H* BUN 33 H Creatinine 0.4 L Glucose 167 H POC Glucose Calcium 8.0 L Magnesium Ferritin Alkaline Phosphatase Lactate Dehydrogenase Total Creatine Kinase CK-MB (CK-2) C-Reactive Protein Total Protein Albumin Triglycerides Arterial Blood Glucose 201 H Arterial Blood Ionized Calcium Coronavirus (PCR) SARS-CoV-2 IgG Ab 08/16/20 08/16/20 05:02 Unknown WBC RBC Hgb Hct MCV MCH MCHC RDW Plt Count Lymph % (Auto) Lymph # (Auto) Seg Neutrophils % Lymphocytes % (Manual) Seg Neutrophils # Seg Neutrophils # Man Lymphocytes # (Manual) D-Dimer ABG pH POC ABG pCO2 POC ABG pO2 ABG Hemoglobin ABG Oxyhemoglobin ABG Sodium ABG Potassium ABG Chloride ABG Glucose Sodium 146 H Potassium Chloride Carbon Dioxide 36 H BUN 29 H Creatinine 0.4 L Glucose 176 H POC Glucose 161 H Calcium 7.7 L Magnesium Ferritin Alkaline Phosphatase Lactate Dehydrogenase Total Creatine Kinase CK-MB (CK-2) C-Reactive Protein Total Protein Albumin Triglycerides Arterial Blood Glucose Arterial Blood Ionized Calcium Coronavirus (PCR) SARS-CoV-2 IgG Ab
[2020-08-16] MEDS: ZINC SULFATE 220 MG CAP PO SCH (11:56)
[2020-08-16] MEDS: MIDAZOLAM 100 MG in SODIUM CHLORIDE 0.9% 80 ML IV SCH (11:56)
[2020-08-16] MEDS: traZODone 50 MG TAB PO SCH (21:43)
[2020-08-17] MEDS: INSULIN LISPRO 100 UNIT/ML VIAL 3 mL SUB-Q SCH ×4 (00:48→20:05)
--- NOTE | 2020-08-17 07:31 | Progress Note ---
Assessment and Plan Culture: Blood culture 08/02/2020 no growth Urine culture 08/02/2020<10,000 mixed bacteria Tracheal aspirate 08/02/2020 poor specimen Blood culture 08/10/2020 no growth today Tracheal aspirate 08/12/2020 normal resp chasidy Urine culture 08/12/2020 mixed bacteria MRSA PCR neg Assessment: 60 years old male initially admitted on 07/17/2020 secondary to 2- week history of shortness of breath and cough, found to have severe COVID-19 pneumonia, treated with Decadron and remdesivir, respiratory failure worsened intubated on 07/31/2020, remains on the ventilator since then, noted with a new intermittent fever on 08/01/2020 until yesterday: #New SIRS rule out sepsis: Not present on admission. Fever resolved, leukocytosis is up. Of unclear etiology. Possibilities: nosocomial pneumonia (however recent chest x-ray shows improved infiltrates), DVT/PEs?, Opportunistic infection due to prolonged steroid use. Steroids stopped. Repeat UA neg. Procal 0.9-->0.5 #Critical COVID-19 pneumonia: Inflammatory markers elevated. D-dimer was > 10,000, CT chest shows no pulmonary embolism, positive bilateral groundglass opacities. Venous ultrasound no DVT. Markers improving. #Acute hypoxemic respiratory failure: Patient intubated, likely secondary to COVID-19. #Right lip lesion:? Herpes labialis, treated with valtrex. Recommendations: -Anticoagulation per protocol -Continue cefepime 2 g IV every 12 hours empirically D6 of 7 -Remove/exchange orona as possible -order placed yesterday Guarded prognosis Nola Canas MD [facility] ([facility]) Office [phone] Subjective Date of service: 08/17/20 Principal diagnosis: Acute respiratory failure with hypoxia, Covid pneumonia Interval history: Remains intubated FiO2 70%, PEEP 16, sedated on Versed and fentanyl, tachycardia on monitor. No fever. Prone position overnight. Objective - Exam Narrative Exam: Physical exam deferred to minimize COVID-19 transmission during pandemic. ER and internal medicine physical examination notes reviewed. - Constitutional Vitals: Vital Signs Temp Pulse Resp BP Pulse Ox 99.3 F 99 H 37 H 94/64 95 08/17/20 04:00 08/17/20 06:45 08/17/20 06:45 08/17/20 06:45 08/17/20 06:45 Temperature -Last 24 Hours Temperature 99.3 F Temperature 99.3 F Temperature 99.1 F Temperature 99 F Temperature 98.5 F Temperature 98.7 F - Labs CBC & Chem 7: 08/16/20 04:00 08/16/20 Unknown Labs: Abnormal lab results 08/16/20 08/16/20 08/16/20 Range/Units 12:14 17:53 23:19 POC ABG pCO2 (32.0-48.0) mmHg ABG Hemoglobin (12.0-17.5) ABG Potassium (3.40-4.50) mmol/L ABG Glucose (65-95) mg/dL Carboxyhemoglobin (0.5-1.5) POC Glucose 195 H 177 H 140 H (70-105) mg/dL Arterial Blood Glucose (65-95) mg/dL 08/17/20 08/17/20 Range/Units 01:38 05:19 POC ABG pCO2 73.5 H (32.0-48.0) mmHg ABG Hemoglobin 8.9 L (12.0-17.5) ABG Potassium 4.6 H (3.40-4.50) mmol/L ABG Glucose 149 H (65-95) mg/dL Carboxyhemoglobin 1.7 H (0.5-1.5) POC Glucose 199 H (70-105) mg/dL Arterial Blood Glucose 149 H (65-95) mg/dL
[2020-08-17 08:26] LABS: Hematocrit 22.7 % (35.5-45.6); Hemoglobin 7.4 gm/dl (11.8-15.2); Mean Corpuscular HGB Conc 33 % (32-34); Mean Corpuscular Volume 99 fl (84-94); Platelet Count 225 K/mm3 (140-440); Red Blood Count 2.28 M/mm3 (3.65-5.03); Red Cell Distribution Width 14.5 % (13.2-15.2)
[2020-08-17] MEDS: fentaNYL DRIP Premix 2,000 MCG/100 ML BAG IV SCH ×3 (08:44→22:06)
[2020-08-17 08:47] LABS: Blood Urea Nitrogen 32 mg/dL (9-20); Calcium 7.9 mg/dL (8.4-10.2); Hemolysis Index 2
[2020-08-17] MEDS: FAMOTIDINE 20 MG TAB PO SCH ×2 (09:01→21:37)
[2020-08-17] MEDS: ENOXAPARIN 100 MG/1 ML INJ SUB-Q SCH ×2 (09:01→21:38)
[2020-08-17] MEDS: ASCORBIC ACID 500 MG TAB PO SCH ×2 (09:01→21:38)
[2020-08-17] MEDS: CHOLECALCIFEROL (VIT D3) 5,000 UNIT TAB PO SCH (09:02)
[2020-08-17] MEDS: ZINC SULFATE 220 MG CAP PO SCH (09:02)
[2020-08-17] MEDS: CEFEPIME/NS 2 GM/100 ML 2 GM/100 ML BAG IV SCH ×2 (09:02→21:37)
[2020-08-17] MEDS: SENNOSIDES/DOCUSATE SODIUM 8.6/50 MG TAB PO SCH ×2 (09:02→21:37)
[2020-08-17 09:24] LABS: BUN/Creatinine Ratio 64
[2020-08-17] MEDS: MIDAZOLAM 100 MG in SODIUM CHLORIDE 0.9% 80 ML IV SCH (11:10)
--- NOTE | 2020-08-17 11:30 | Progress Note ---
Assessment and Plan 60 y/o male with chest discomfort, shortness of breath and abnormal CXR, COVID Positive 08/17/20: Day 16 of intubation. Hold on lasix therapy today. Prone again today. Wean for sats greater than 88% and PaO2 greater than 55. Continue sedation with all three meds but will increase diprovan to decrease the versed as this drug tends to linger in the system. Family visited yesterday per nursing report but upset as patient was already prone when they got here. Guarded prognosis. [facility] please update in regards to current care and remind them about the fact of needing trach if we get to this point. 08/16/20: Day 15 of intubation. Agree with lasix therapy. will give 40 IV x1. Will prone today as Wound Care had not further recs in regards to wounds on lip. Will be very cautions when proning. Will also add back diprovan today to see if this helps with breathing pattern. Prognosis is guarded. IMS to speak with family again today and mentioned that they may ask the to come and visit. 08/15/20: Day 14 of intubation. Stopped steroids over the weekend. Last bicarb was 43 but this was yesterday. Wound care consult. Hopeful they can given us something so that we can start proning again. Hold on proning now. Agree with weaning sedation as tolerated. still making good urine. Agree with D5 but now sodium in normal range now so can discontinue. Prognosis remains guarded. Patient will most likely require a trach if able to be weaned successfully. If possible please discuss the possiblity of this with the family. I like to discuss these things early if possible so it does not come as a shock. I have not developed the best rapport with them so I am asking the [facility] physician to mention this today when they update the family. 08/12/20: Day 11 of intubation. Bicarb is down to 39. pH is not alkalotic. Maxed on Versed at 5 and currently Fentanyl at 4. Urine output remains stable. Will continue proning although has not been responding as well as possible. Hold on diuretic therapy. Needs more free water flushes vs D5W to help with elevated sodium. Guarded prognosis. Please discuss with family that pulmonary [place] unfortunately there has been no change, however he has not gotten worse. we will continue steroid therapy as well as proning. We will wean the oxygen as best we can when his saturations will tolerate it. 08/11/20: Day 10 of intubation. Most likely elevated bicarb is from Steroids (has been on them 25 days). No need to treat at the moment. If his serum bicarb gets about 45-46 will treat with diamox therapy. This will remove bicarb and help with volume. Hold on any further lasix therapy for now also. Will repeat Trigylcerides over the weekend. No diprovan at this time. If more sedation is needed, can look at pentobarb or phenobarbital coma to assist with sedation. Daily labs to monitor renal function. Prognosis remains very guarded. Wean FiO2 for sats>88% 08/10/20: Day 9 of intubation. Unfortunately we must stop diprovan. Will place patient on Versed drip along with Fentanyl drip. Needs daily chemistries to assess renal function so that medication does not build up in patient system. All free water drips as well as flushes have been stopped. Will repeat Chemistry again today at 1400. Prone again today as well. Wean FiO2 for sats >88%. If able to speak with family, would I would tell them is that patient remains critically ill and we will continue to prone on a daily basis to help with oxygenation. I would also tell them we changed the sedation to prevent complications from higher levels. His renal function so far has remained stable which is a good thing but we will monitor it daily. Overall prognosis is still guarded to poor. 08/09/20: Day 8 of intubation. Continue proning as patient is tolerating this and making slow improvement. Continue PEEP at current settings. IMS will update family and I will discuss with IMS my medical opinion to be conveyed to them. 08/08/20: Prone again today. Same weaning parameters as yesterday. Will order labs for am. Calling now and see if she needs the other the family on the phone to update her. Prognosis still remains very guarded to poor. Asked RT to be as aggressive as possible with weaning FiO2. The unfortunately is not understanding how sick the patient is. I am trying my best to explain to her on a daily basis about this. But she does not accept when I tell her that he has remained stable. 08/07/20: Will prone again today. Wean FiO2 for sats >88% and PaO2 >55. Continue to monitor daily urine function and output. I again today explained the severity of the Mr. Suarez's clinical state as best I could using laymen terms. The other family member on the phone says that the communication has not bee consistent. The patient received Remdesivir while he was on the floor. He did get all 5 doses. I explained to the family that there is no indication for longer therapy or ID would have recommended. I also explained to them that I have extended the steroids to see if this would help beyond the current clinical recommendations. I also explained again that there is no cure for COVID 19 and that all measures are experimental as well as supportive. I also explained why he needs sedation while intubated and especially when proning. I am still not sure that they fully understand the extent of his illness but will continue to speak with them. Guarded prognosis. 08/06/20: Increase PEEP today to 16. Repeat gas tomorrow morning. Wean FiO2 today for sats >88%. Spoke with RT and PaO2 of 55 and greater are ok. will prone tonight for 12 hours at least. Remains in sinus tach. No labs drawn this am will order for stat this morning including BMP and Mag and Phos, CBC. Spoke with this am to update her. She is upset and asks to do everything for him that we can which I told her we would. I was also very honest about the severity of the disease which made her even more sad. 08/05/20: Did not increase PEEP yesterday. PaO2 improved on own. Will wean FiO2 down today for sats >88%. Hold on proning for now. Continue steroids. Needs better rate control. Most likely sinus tach from hypoxemia, but needs 12 lead if not done yet. Needs labs checked to assess electrolytes. Prognosis remains guarded to poor. Will attempt to reach today, if not today tomorrow. 08/04/20: Will increase PEEP to 16 today. If no improvement in the next 24 hours then will start proning patient tomorrow night. Continue steroids. Overall prognosis remains very guarded. 08/03/20: Chemistry not ordered, ordered today. Follow up blood cultures. Increased PEEP to 14 and RT will attempt to wean FiO2 back down to 50's. Will continue steroids at current dosing for now. He has already completed to original 10 days. Given some improvement, would like to continue. Overall prognosis remains very guarded. 08/02/20: Check blood and urine cultures along with UA. Will check repeat CXR. Repeat Chemistry tomorrow. Hold on abx therapy for right now. Prognosis remains guarded. Continue steroids. Wean FiO2 for sats >88% 08/01/20: Overall prognosis here is very very guarded to poor. Will consider proning patient later today if not able to wean FiO2 any further this afternoon. Per CM, wants to come see patient which is very reasonable. Will continue steroids despite completing 10 days of this. 07/29/20: Supportive measures. Proning and wean as tolerated. 07/28/20: No new recommendations as of right now. When beds become available will move patient down stairs for closer monitoring. 07/27/20: Difficult situation. Patient appears to be not responding to any therapy. Steroids finished yesterday. Given the degree of inflammation will restart steroids for at least another 72-96 hours. In no improvement will stop. Not much else to do medical therapy [place]. Continue to keep patient net negative. Still remains high risk for intubation and if intubated given his current response to steroids, very high mortality. 07/26/20: No new recs for today. Patient really needs to try to prone as much as possible during the day and sleep prone at night. He remains a high risk for cardiac arrest and intubation. 07/25/20: very high risk for cardiac arrest from hypoxemia, but no available beds in ICU. Given COVID status, ideally would not like to use bipap but may have to in the event of continued desats. While proning does better and does not need the mask along with HFNC. Encourage to prone as long as possible. 1. Continue steroids for 10 days. 2. Continue Remdesivir. Not a candidate for Convalescent Plasma 3. Please ask patient prone as tolerated during the day and sleep prone at night. Currently doing and tolerating 4. Agree with daily lasix but will need labs to monitor renal function and electrolytes. Needs labs for today. 5. Guarded prognosis to poor now with increasing oxygen requirement. May require intubation and high risk for cardiac arrest. CCT 31 Subjective Date of service: 08/17/20 Principal diagnosis: Acute respiratory failure with hypoxia, Covid pneumonia Interval history: No acute events. Tolerated proning and diuretic therapy on yesterday. Did see bump in bicarb to 41 but pH is ok. PaO2 up to 103 this morning. Still on 70% and elevated levels of PEEP. Objective Vital Signs - 12hr 08/16/20 08/16/20 08/16/20 23:30 23:46 23:50 Temperature 99.3 F Pulse Rate 116 H 115 H Pulse Rate [ From Monitor] Respiratory 30 H 29 H Rate Blood Pressure 126/67 126/67 O2 Sat by Pulse 96 97 Oximetry 08/17/20 08/17/20 08/17/20 00:00 00:16 00:32 Temperature Pulse Rate 116 H 117 H 115 H Pulse Rate [ From Monitor] Respiratory 24 27 H 30 H Rate Blood Pressure 120/72 120/72 120/72 O2 Sat by Pulse 96 97 Oximetry 08/17/20 08/17/20 08/17/20 00:46 00:54 01:00 Temperature Pulse Rate 115 H 117 H 115 H Pulse Rate [ From Monitor] Respiratory 24 20 Rate Blood Pressure 120/72 120/67 110/68 O2 Sat by Pulse 96 100 97 Oximetry 08/17/20 08/17/20 08/17/20 01:16 01:36 01:45 Temperature Pulse Rate 114 H 110 H 109 H Pulse Rate [ From Monitor] Respiratory 21 30 H 29 H Rate Blood Pressure 110/68 120/72 120/72 O2 Sat by Pulse 98 99 98 Oximetry 08/17/20 08/17/20 08/17/20 02:00 02:15 02:30 Temperature Pulse Rate 110 H 110 H 109 H Pulse Rate [ From Monitor] Respiratory 25 H 20 18 Rate Blood Pressure 116/66 116/66 113/70 O2 Sat by Pulse 99 99 99 Oximetry 08/17/20 08/17/20 08/17/20 02:45 03:00 03:15 Temperature Pulse Rate 107 H 111 H 107 H Pulse Rate [ From Monitor] Respiratory 25 H 31 H 36 H Rate Blood Pressure 113/70 109/62 109/62 O2 Sat by Pulse 99 98 98 Oximetry 08/17/20 08/17/20 08/17/20 03:30 03:45 03:52 Temperature Pulse Rate 106 H 101 H 103 H Pulse Rate [ From Monitor] Respiratory 48 H 40 H Rate Blood Pressure 119/59 119/59 119/59 O2 Sat by Pulse 96 95 96 Oximetry 08/17/20 08/17/2008/17/21 04:00 04:15 04:30 Temperature 99.3 F Pulse Rate 101 H 103 H 100 H Pulse Rate [ 114 H From Monitor] Respiratory 37 H 32 H 39 H Rate Blood Pressure 125/63 125/63 111/64 O2 Sat by Pulse 97 97 97 Oximetry 08/17/20 08/17/20 08/17/20 04:45 05:00 05:15 Temperature Pulse Rate 105 H 105 H 105 H Pulse Rate [ From Monitor] Respiratory 38 H 31 H 40 H Rate Blood Pressure 111/64 116/63 116/63 O2 Sat by Pulse 97 98 98 Oximetry 08/17/20 08/17/20 08/17/20 05:30 05:45 06:00 Temperature Pulse Rate 104 H 104 H 107 H Pulse Rate [ From Monitor] Respiratory 33 H 38 H 27 H Rate Blood Pressure 106/64 106/64 100/64 O2 Sat by Pulse 98 97 97 Oximetry 08/17/20 08/17/20 08/17/20 06:15 06:30 06:45 Temperature Pulse Rate 104 H 105 H 99 H Pulse Rate [ From Monitor] Respiratory 41 H 36 H 37 H Rate Blood Pressure 100/64 94/64 94/64 O2 Sat by Pulse 96 97 95 Oximetry 08/17/20 08/17/20 08/17/20 07:00 07:15 07:31 Temperature Pulse Rate 101 H 103 H 102 H Pulse Rate [ From Monitor] Respiratory 29 H 25 H 24 Rate Blood Pressure 112/67 112/67 105/63 O2 Sat by Pulse 96 96 96 Oximetry 08/17/20 08/17/20 08/17/20 07:45 08:00 08:01 Temperature Pulse Rate 103 H 99 H 103 H Pulse Rate [ 99 H From Monitor] Respiratory 30 H 30 H 19 Rate Blood Pressure 105/63 144/65 O2 Sat by Pulse 96 96 94 Oximetry 08/17/20 08/17/20 08/17/20 08:08 08:15 08:30 Temperature Pulse Rate 100 H 100 H 101 H Pulse Rate [ From Monitor] Respiratory 30 H 31 H Rate Blood Pressure 144/65 144/65 100/67 O2 Sat by Pulse 95 95 96 Oximetry 08/17/20 08/17/20 08:45 09:01 Temperature Pulse Rate 103 H 103 H Pulse Rate [ From Monitor] Respiratory 29 H 31 H Rate Blood Pressure 100/67 115/70 O2 Sat by Pulse 96 97 Oximetry Constitutional: other (orally intubated on vent) Eyes: non-icteric ENT: oropharynx moist Neck: supple Ascultation: Bilateral: diminished breath sounds, rhonchi, other (coarse BS bilaterally) Cardiovascular: regular rate and rhythm, other (tachycardia) Gastrointestinal: normoactive bowel sounds, soft, non-tender, non-distended Integumentary: normal Extremities: no cyanosis Neurologic: other (sedated) Psychiatric: other (sedated) CBC and BMP: 08/17/20 07:57 08/17/20 07:57 ABG, PT/INR, D-dimer: ABG ABG pH 7.374 (7.320-7.450) 08/17/20 01:38 POC ABG pCO2 73.5 mmHg (32.0-48.0) H 08/17/20 01:38 POC ABG pO2 103.3 mmHg (83-108) 08/17/20 01:38 POC ABG HCO3 41.9 08/17/20 01:38 PT/INR, D-dimer PT 13.7 Sec. (12.2-14.9) 07/18/20 04:31 INR 1.06 (0.87-1.13) 07/18/20 04:31 D-Dimer 5413.39 ng/mlDDU (0-234) H 08/12/20 08:32 Abnormal lab findings: Abnormal Labs 07/17/20 07/17/20 07/17/20 17:30 17:30 22:48 WBC RBC Hgb Hct MCV MCH MCHC 35 H RDW Plt Count Lymph % (Auto) 10.5 L Lymph # (Auto) 0.7 L Seg Neutrophils % 85.3 H Lymphocytes % (Manual) Seg Neutrophils # Seg Neutrophils # Man Lymphocytes # (Manual) D-Dimer 314.21 H ABG pH POC ABG pCO2 POC ABG pO2 ABG Hemoglobin ABG Oxyhemoglobin ABG Sodium ABG Potassium ABG Chloride ABG Glucose Carboxyhemoglobin Sodium Potassium Chloride Carbon Dioxide BUN 1 L Creatinine Glucose 154 H POC Glucose Calcium Magnesium Ferritin Alkaline Phosphatase Lactate Dehydrogenase Total Creatine Kinase CK-MB (CK-2) C-Reactive Protein Total Protein Albumin Triglycerides Arterial Blood Glucose Arterial Blood Ionized Calcium Coronavirus (PCR) SARS-CoV-2 IgG Ab 07/17/20 07/17/20 07/18/20 22:48 22:48 04:31 WBC RBC Hgb Hct MCV MCH 33 H MCHC 35 H RDW 13.1 L Plt Count Lymph % (Auto) Lymph # (Auto) Seg Neutrophils % Lymphocytes % (Manual) 5.0 L Seg Neutrophils # Seg Neutrophils # Man 8.1 H Lymphocytes # (Manual) 0.4 L D-Dimer ABG pH POC ABG pCO2 POC ABG pO2 ABG Hemoglobin ABG Oxyhemoglobin ABG Sodium ABG Potassium ABG Chloride ABG Glucose Carboxyhemoglobin Sodium Potassium Chloride Carbon Dioxide BUN Creatinine Glucose 124 H POC Glucose Calcium Magnesium Ferritin 889.3 H Alkaline Phosphatase Lactate Dehydrogenase 832 H Total Creatine Kinase CK-MB (CK-2) C-Reactive Protein 17.70 H Total Protein Albumin Triglycerides Arterial Blood Glucose Arterial Blood Ionized Calcium Coronavirus (PCR) SARS-CoV-2 IgG Ab 07/18/20 07/18/20 07/18/20 04:31 08:50 18:48 WBC RBC Hgb Hct MCV MCH MCHC RDW Plt Count Lymph % (Auto) Lymph # (Auto) Seg Neutrophils % Lymphocytes % (Manual) Seg Neutrophils # Seg Neutrophils # Man Lymphocytes # (Manual) D-Dimer 275.27 H ABG pH POC ABG pCO2 POC ABG pO2 ABG Hemoglobin ABG Oxyhemoglobin ABG Sodium ABG Potassium ABG Chloride ABG Glucose Carboxyhemoglobin Sodium Potassium Chloride Carbon Dioxide 31 H D BUN 23 H Creatinine Glucose 143 H POC Glucose Calcium Magnesium Ferritin Alkaline Phosphatase Lactate Dehydrogenase Total Creatine Kinase CK-MB (CK-2) C-Reactive Protein Total Protein Albumin Triglycerides Arterial Blood Glucose Arterial Blood Ionized Calcium Coronavirus (PCR) Positive A SARS-CoV-2 IgG Ab 07/18/20 07/18/20 07/20/20 18:48 18:48 08:56 WBC RBC Hgb Hct MCV MCH MCHC RDW Plt Count Lymph % (Auto) Lymph # (Auto) Seg Neutrophils % Lymphocytes % (Manual) Seg Neutrophils # Seg Neutrophils # Man Lymphocytes # (Manual) D-Dimer ABG pH POC ABG pCO2 POC ABG pO2 ABG Hemoglobin ABG Oxyhemoglobin ABG Sodium ABG Potassium ABG Chloride ABG Glucose Carboxyhemoglobin Sodium Potassium Chloride Carbon Dioxide BUN 22 H Creatinine Glucose 219 H POC Glucose Calcium Magnesium Ferritin 1164.0 H Alkaline Phosphatase Lactate Dehydrogenase 560 H 739 H Total Creatine Kinase CK-MB (CK-2) C-Reactive Protein 18.00 H 17.50 H Total Protein Albumin 3.0 L Triglycerides Arterial Blood Glucose Arterial Blood Ionized Calcium Coronavirus (PCR) SARS-CoV-2 IgG Ab 07/20/20 07/20/20 07/21/20 08:56 08:56 05:24 WBC RBC Hgb Hct MCV MCH MCHC RDW Plt Count Lymph % (Auto) Lymph # (Auto) Seg Neutrophils % Lymphocytes % (Manual) Seg Neutrophils # Seg Neutrophils # Man Lymphocytes # (Manual) D-Dimer 9523.70 H ABG pH POC ABG pCO2 POC ABG pO2 ABG Hemoglobin ABG Oxyhemoglobin ABG Sodium ABG Potassium ABG Chloride ABG Glucose Carboxyhemoglobin Sodium Potassium Chloride Carbon Dioxide BUN Creatinine Glucose POC Glucose Calcium Magnesium Ferritin 1581.0 H Alkaline Phosphatase Lactate Dehydrogenase Total Creatine Kinase CK-MB (CK-2) C-Reactive Protein Total Protein Albumin Triglycerides Arterial Blood Glucose Arterial Blood Ionized Calcium Coronavirus (PCR) SARS-CoV-2 IgG Ab Reactive A 07/22/20 07/24/20 07/26/20 04:31 13:26 10:07 WBC RBC Hgb Hct MCV MCH MCHC RDW Plt Count Lymph % (Auto) Lymph # (Auto) Seg Neutrophils % Lymphocytes % (Manual) Seg Neutrophils # Seg Neutrophils # Man Lymphocytes # (Manual) D-Dimer > 69423 H ABG pH POC ABG pCO2 POC ABG pO2 ABG Hemoglobin ABG Oxyhemoglobin ABG Sodium ABG Potassium ABG Chloride ABG Glucose Carboxyhemoglobin Sodium 146 H Potassium Chloride Carbon Dioxide 32 H BUN 28 H 26 H Creatinine Glucose 144 H 116 H POC Glucose Calcium 8.3 L Magnesium Ferritin Alkaline Phosphatase Lactate Dehydrogenase Total Creatine Kinase CK-MB (CK-2) C-Reactive Protein Total Protein Albumin 3.3 L Triglycerides Arterial Blood Glucose Arterial Blood Ionized Calcium Coronavirus (PCR) SARS-CoV-2 IgG Ab 07/26/20 07/26/20 07/27/20 10:07 10:07 19:45 WBC RBC Hgb Hct MCV MCH MCHC RDW Plt Count Lymph % (Auto) Lymph # (Auto) Seg Neutrophils % Lymphocytes % (Manual) Seg Neutrophils # Seg Neutrophils # Man Lymphocytes # (Manual) D-Dimer ABG pH POC ABG pCO2 POC ABG pO2 ABG Hemoglobin ABG Oxyhemoglobin ABG Sodium ABG Potassium ABG Chloride ABG Glucose Carboxyhemoglobin Sodium Potassium Chloride 97.4 L Carbon Dioxide 33 H BUN 27 H Creatinine Glucose 175 H POC Glucose Calcium Magnesium Ferritin 1079.0 H Alkaline Phosphatase Lactate Dehydrogenase 708 H Total Creatine Kinase CK-MB (CK-2) C-Reactive Protein 6.10 H Total Protein Albumin Triglycerides Arterial Blood Glucose Arterial Blood Ionized Calcium Coronavirus (PCR) SARS-CoV-2 IgG Ab 07/29/20 07/30/20 07/30/20 02:09 10:33 11:54 WBC RBC Hgb Hct MCV MCH MCHC RDW Plt Count Lymph % (Auto) Lymph # (Auto) Seg Neutrophils % Lymphocytes % (Manual) Seg Neutrophils # Seg Neutrophils # Man Lymphocytes # (Manual) D-Dimer ABG pH POC ABG pCO2 POC ABG pO2 ABG Hemoglobin ABG Oxyhemoglobin ABG Sodium ABG Potassium ABG Chloride ABG Glucose Carboxyhemoglobin Sodium Potassium Chloride Carbon Dioxide BUN Creatinine Glucose POC Glucose 183 H Calcium Magnesium 3.00 H Ferritin Alkaline Phosphatase Lactate Dehydrogenase Total Creatine Kinase 174 H CK-MB (CK-2) 4.5 H C-Reactive Protein Total Protein Albumin Triglycerides Arterial Blood Glucose Arterial Blood Ionized Calcium Coronavirus (PCR) SARS-CoV-2 IgG Ab 07/30/20 07/30/20 07/31/20 17:30 23:08 11:04 WBC RBC Hgb Hct MCV MCH MCHC RDW Plt Count Lymph % (Auto) Lymph # (Auto) Seg Neutrophils % Lymphocytes % (Manual) Seg Neutrophils # Seg Neutrophils # Man Lymphocytes # (Manual) D-Dimer ABG pH POC ABG pCO2 POC ABG pO2 ABG Hemoglobin ABG Oxyhemoglobin ABG Sodium ABG Potassium ABG Chloride ABG Glucose Carboxyhemoglobin Sodium 151 H D Potassium Chloride 109.2 H Carbon Dioxide 32 H BUN 48 H Creatinine Glucose 165 H POC Glucose 199 H 194 H Calcium Magnesium Ferritin Alkaline Phosphatase 168 H Lactate Dehydrogenase Total Creatine Kinase CK-MB (CK-2) C-Reactive Protein Total Protein Albumin 3.1 L Triglycerides Arterial Blood Glucose Arterial Blood Ionized Calcium Coronavirus (PCR) SARS-CoV-2 IgG Ab 07/31/20 07/31/20 07/31/20 11:18 11:23 17:47 WBC RBC Hgb Hct MCV MCH MCHC RDW Plt Count Lymph % (Auto) Lymph # (Auto) Seg Neutrophils % Lymphocytes % (Manual) Seg Neutrophils # Seg Neutrophils # Man Lymphocytes # (Manual) D-Dimer ABG pH POC ABG pCO2 56.6 H POC ABG pO2 73.1 L ABG Hemoglobin ABG Oxyhemoglobin 92.1 L ABG Sodium ABG Potassium ABG Chloride 108.0 H ABG Glucose 169 H Carboxyhemoglobin Sodium Potassium Chloride Carbon Dioxide BUN Creatinine Glucose POC Glucose 156 H 169 H Calcium Magnesium Ferritin Alkaline Phosphatase Lactate Dehydrogenase Total Creatine Kinase CK-MB (CK-2) C-Reactive Protein Total Protein Albumin Triglycerides Arterial Blood Glucose 169 H Arterial Blood Ionized Calcium Coronavirus (PCR) SARS-CoV-2 IgG Ab 07/31/20 07/31/20 07/31/20 20:58 23:18 23:55 WBC 19.8 H RBC Hgb Hct MCV 95 H MCH MCHC RDW 13.0 L Plt Count Lymph % (Auto) Lymph # (Auto) Seg Neutrophils % Lymphocytes % (Manual) Seg Neutrophils # Seg Neutrophils # Man Lymphocytes # (Manual) D-Dimer ABG pH POC ABG pCO2 POC ABG pO2 ABG Hemoglobin ABG Oxyhemoglobin ABG Sodium ABG Potassium ABG Chloride ABG Glucose Carboxyhemoglobin Sodium Potassium Chloride Carbon Dioxide BUN Creatinine Glucose POC Glucose 293 H 211 H Calcium Magnesium Ferritin Alkaline Phosphatase Lactate Dehydrogenase Total Creatine Kinase CK-MB (CK-2) C-Reactive Protein Total Protein Albumin Triglycerides Arterial Blood Glucose Arterial Blood Ionized Calcium Coronavirus (PCR) SARS-CoV-2 IgG Ab 08/01/20 08/01/20 08/01/20 03:47 08:30 12:27 WBC RBC Hgb Hct MCV MCH MCHC RDW Plt Count Lymph % (Auto) Lymph # (Auto) Seg Neutrophils % Lymphocytes % (Manual) Seg Neutrophils # Seg Neutrophils # Man Lymphocytes # (Manual) D-Dimer ABG pH POC ABG pCO2 49.8 H POC ABG pO2 123.4 H ABG Hemoglobin ABG Oxyhemoglobin ABG Sodium ABG Potassium 4.6 H ABG Chloride 111.0 H ABG Glucose 130 H Carboxyhemoglobin Sodium 154 H Potassium Chloride 115.1 H Carbon Dioxide 32 H BUN 49 H Creatinine Glucose 492 H POC Glucose 161 H Calcium 7.2 L D Magnesium Ferritin Alkaline Phosphatase Lactate Dehydrogenase Total Creatine Kinase CK-MB (CK-2) C-Reactive Protein Total Protein Albumin Triglycerides Arterial Blood Glucose 130 H Arterial Blood Ionized Calcium 4.5 L Coronavirus (PCR) SARS-CoV-2 IgG Ab 08/01/20 08/01/20 08/02/20 16:55 23:06 05:00 WBC RBC Hgb Hct MCV MCH MCHC RDW Plt Count Lymph % (Auto) Lymph # (Auto) Seg Neutrophils % Lymphocytes % (Manual) Seg Neutrophils # Seg Neutrophils # Man Lymphocytes # (Manual) D-Dimer ABG pH POC ABG pCO2 52.5 H POC ABG pO2 69.8 L ABG Hemoglobin ABG Oxyhemoglobin ABG Sodium 147.2 H ABG Potassium ABG Chloride 110.0 H ABG Glucose 177 H Carboxyhemoglobin Sodium Potassium Chloride Carbon Dioxide BUN Creatinine Glucose POC Glucose 195 H 162 H Calcium Magnesium Ferritin Alkaline Phosphatase Lactate Dehydrogenase Total Creatine Kinase CK-MB (CK-2) C-Reactive Protein Total Protein Albumin Triglycerides Arterial Blood Glucose 177 H Arterial Blood Ionized Calcium Coronavirus (PCR) SARS-CoV-2 IgG Ab 08/02/20 08/02/20 08/02/20 05:01 12:05 17:13 WBC RBC Hgb Hct MCV MCH MCHC RDW Plt Count Lymph % (Auto) Lymph # (Auto) Seg Neutrophils % Lymphocytes % (Manual) Seg Neutrophils # Seg Neutrophils # Man Lymphocytes # (Manual) D-Dimer ABG pH POC ABG pCO2 POC ABG pO2 ABG Hemoglobin ABG Oxyhemoglobin ABG Sodium ABG Potassium ABG Chloride ABG Glucose Carboxyhemoglobin Sodium Potassium Chloride Carbon Dioxide BUN Creatinine Glucose POC Glucose 146 H 166 H 209 H Calcium Magnesium Ferritin Alkaline Phosphatase Lactate Dehydrogenase Total Creatine Kinase CK-MB (CK-2) C-Reactive Protein Total Protein Albumin Triglycerides Arterial Blood Glucose Arterial Blood Ionized Calcium Coronavirus (PCR) SARS-CoV-2 IgG Ab 08/02/20 08/03/20 08/03/20 23:26 04:06 04:34 WBC RBC Hgb Hct MCV MCH MCHC RDW Plt Count Lymph % (Auto) Lymph # (Auto) Seg Neutrophils % Lymphocytes % (Manual) Seg Neutrophils # Seg Neutrophils # Man Lymphocytes # (Manual) D-Dimer ABG pH POC ABG pCO2 55.6 H POC ABG pO2 66.1 L ABG Hemoglobin 11.9 L ABG Oxyhemoglobin 91.1 L ABG Sodium 145.7 H ABG Potassium 4.8 H ABG Chloride 111.0 H ABG Glucose 195 H Carboxyhemoglobin Sodium Potassium Chloride Carbon Dioxide BUN Creatinine Glucose POC Glucose 157 H Calcium Magnesium Ferritin Alkaline Phosphatase Lactate Dehydrogenase Total Creatine Kinase CK-MB (CK-2) C-Reactive Protein Total Protein Albumin Triglycerides 207 H Arterial Blood Glucose 195 H Arterial Blood Ionized Calcium Coronavirus (PCR) SARS-CoV-2 IgG Ab 08/03/20 08/03/20 08/03/20 05:00 11:55 17:15 WBC RBC Hgb Hct MCV MCH MCHC RDW Plt Count Lymph % (Auto) Lymph # (Auto) Seg Neutrophils % Lymphocytes % (Manual) Seg Neutrophils # Seg Neutrophils # Man Lymphocytes # (Manual) D-Dimer ABG pH POC ABG pCO2 POC ABG pO2 ABG Hemoglobin ABG Oxyhemoglobin ABG Sodium ABG Potassium ABG Chloride ABG Glucose Carboxyhemoglobin Sodium Potassium Chloride Carbon Dioxide BUN Creatinine Glucose POC Glucose 179 H 173 H 217 H Calcium Magnesium Ferritin Alkaline Phosphatase Lactate Dehydrogenase Total Creatine Kinase CK-MB (CK-2) C-Reactive Protein Total Protein Albumin Triglycerides Arterial Blood Glucose Arterial Blood Ionized Calcium Coronavirus (PCR) SARS-CoV-2 IgG Ab 08/03/20 08/04/20 08/04/20 23:01 03:59 05:30 WBC RBC Hgb Hct MCV MCH MCHC RDW Plt Count Lymph % (Auto) Lymph # (Auto) Seg Neutrophils % Lymphocytes % (Manual) Seg Neutrophils # Seg Neutrophils # Man Lymphocytes # (Manual) D-Dimer ABG pH POC ABG pCO2 54.6 H POC ABG pO2 66.2 L ABG Hemoglobin 10.8 L ABG Oxyhemoglobin 91.5 L ABG Sodium ABG Potassium ABG Chloride 110.0 H ABG Glucose 201 H Carboxyhemoglobin Sodium Potassium Chloride Carbon Dioxide BUN Creatinine Glucose POC Glucose 222 H 137 H Calcium Magnesium Ferritin Alkaline Phosphatase Lactate Dehydrogenase Total Creatine Kinase CK-MB (CK-2) C-Reactive Protein Total Protein Albumin Triglycerides Arterial Blood Glucose 201 H Arterial Blood Ionized Calcium Coronavirus (PCR) SARS-CoV-2 IgG Ab 08/04/20 08/04/20 08/04/20 06:57 11:50 17:29 WBC RBC Hgb Hct MCV MCH MCHC RDW Plt Count Lymph % (Auto) Lymph # (Auto) Seg Neutrophils % Lymphocytes % (Manual) Seg Neutrophils # Seg Neutrophils # Man Lymphocytes # (Manual) D-Dimer ABG pH POC ABG pCO2 POC ABG pO2 ABG Hemoglobin ABG Oxyhemoglobin ABG Sodium ABG Potassium ABG Chloride ABG Glucose Carboxyhemoglobin Sodium 151 H Potassium Chloride 111.3 H Carbon Dioxide 36 H BUN 32 H Creatinine Glucose 160 H POC Glucose 158 H 180 H Calcium 8.2 L Magnesium 2.60 H Ferritin Alkaline Phosphatase Lactate Dehydrogenase Total Creatine Kinase CK-MB (CK-2) C-Reactive Protein Total Protein Albumin Triglycerides Arterial Blood Glucose Arterial Blood Ionized Calcium Coronavirus (PCR) SARS-CoV-2 IgG Ab 08/04/20 08/05/20 08/05/20 23:01 04:49 05:11 WBC RBC Hgb Hct MCV MCH MCHC RDW Plt Count Lymph % (Auto) Lymph # (Auto) Seg Neutrophils % Lymphocytes % (Manual) Seg Neutrophils # Seg Neutrophils # Man Lymphocytes # (Manual) D-Dimer ABG pH POC ABG pCO2 56.7 H POC ABG pO2 80.6 L ABG Hemoglobin 10.9 L ABG Oxyhemoglobin ABG Sodium 145.9 H ABG Potassium ABG Chloride 109.0 H ABG Glucose 160 H Carboxyhemoglobin Sodium Potassium Chloride Carbon Dioxide BUN Creatinine Glucose POC Glucose 160 H 134 H Calcium Magnesium Ferritin Alkaline Phosphatase Lactate Dehydrogenase Total Creatine Kinase CK-MB (CK-2) C-Reactive Protein Total Protein Albumin Triglycerides Arterial Blood Glucose 160 H Arterial Blood Ionized Calcium Coronavirus (PCR) SARS-CoV-2 IgG Ab 08/05/20 08/05/20 08/05/20 11:40 16:54 23:29 WBC RBC Hgb Hct MCV MCH MCHC RDW Plt Count Lymph % (Auto) Lymph # (Auto) Seg Neutrophils % Lymphocytes % (Manual) Seg Neutrophils # Seg Neutrophils # Man Lymphocytes # (Manual) D-Dimer ABG pH POC ABG pCO2 POC ABG pO2 ABG Hemoglobin ABG Oxyhemoglobin ABG Sodium ABG Potassium ABG Chloride ABG Glucose Carboxyhemoglobin Sodium Potassium Chloride Carbon Dioxide BUN Creatinine Glucose POC Glucose 137 H 243 H 154 H Calcium Magnesium Ferritin Alkaline Phosphatase Lactate Dehydrogenase Total Creatine Kinase CK-MB (CK-2) C-Reactive Protein Total Protein Albumin Triglycerides Arterial Blood Glucose Arterial Blood Ionized Calcium Coronavirus (PCR) SARS-CoV-2 IgG Ab 08/06/20 08/06/20 08/06/20 05:24 06:00 08:59 WBC 14.1 H RBC Hgb 11.5 L Hct MCV 98 H MCH MCHC RDW Plt Count 107 L Lymph % (Auto) Lymph # (Auto) Seg Neutrophils % Lymphocytes % (Manual) Seg Neutrophils # Seg Neutrophils # Man Lymphocytes # (Manual) D-Dimer ABG pH POC ABG pCO2 58.9 H POC ABG pO2 53.0 L ABG Hemoglobin ABG Oxyhemoglobin 85.7 L ABG Sodium 148.4 H ABG Potassium 4.7 H ABG Chloride 109.0 H ABG Glucose 125 H Carboxyhemoglobin Sodium Potassium Chloride Carbon Dioxide BUN Creatinine Glucose POC Glucose 122 H Calcium Magnesium Ferritin Alkaline Phosphatase Lactate Dehydrogenase Total Creatine Kinase CK-MB (CK-2) C-Reactive Protein Total Protein Albumin Triglycerides Arterial Blood Glucose 125 H Arterial Blood Ionized Calcium Coronavirus (PCR) SARS-CoV-2 IgG Ab 08/06/20 08/06/20 08/06/20 08:59 12:34 17:43 WBC RBC Hgb Hct MCV MCH MCHC RDW Plt Count Lymph % (Auto) Lymph # (Auto) Seg Neutrophils % Lymphocytes % (Manual) Seg Neutrophils # Seg Neutrophils # Man Lymphocytes # (Manual) D-Dimer ABG pH POC ABG pCO2 POC ABG pO2 ABG Hemoglobin ABG Oxyhemoglobin ABG Sodium ABG Potassium ABG Chloride ABG Glucose Carboxyhemoglobin Sodium 151 H Potassium Chloride 110.7 H Carbon Dioxide 36 H BUN 29 H Creatinine 0.7 L Glucose 194 H POC Glucose 193 H 204 H Calcium Magnesium Ferritin Alkaline Phosphatase Lactate Dehydrogenase Total Creatine Kinase CK-MB (CK-2) C-Reactive Protein Total Protein Albumin Triglycerides Arterial Blood Glucose Arterial Blood Ionized Calcium Coronavirus (PCR) SARS-CoV-2 IgG Ab 08/06/20 08/07/20 08/07/20 23:25 04:00 04:00 WBC RBC 3.59 L Hgb 11.3 L Hct 35.0 L MCV 97 H MCH MCHC RDW Plt Count 103 L Lymph % (Auto) 11.5 L Lymph # (Auto) Seg Neutrophils % 82.9 H Lymphocytes % (Manual) Seg Neutrophils # 9.0 H Seg Neutrophils # Man Lymphocytes # (Manual) D-Dimer ABG pH POC ABG pCO2 POC ABG pO2 ABG Hemoglobin ABG Oxyhemoglobin ABG Sodium ABG Potassium ABG Chloride ABG Glucose Carboxyhemoglobin Sodium 151 H Potassium Chloride 109.6 H Carbon Dioxide 34 H BUN 29 H Creatinine 0.5 L Glucose 134 H POC Glucose 150 H Calcium Magnesium Ferritin Alkaline Phosphatase Lactate Dehydrogenase Total Creatine Kinase CK-MB (CK-2) C-Reactive Protein Total Protein 5.4 L Albumin 2.8 L Triglycerides Arterial Blood Glucose Arterial Blood Ionized Calcium Coronavirus (PCR) SARS-CoV-2 IgG Ab 08/07/20 08/07/20 08/07/20 04:00 04:55 05:16 WBC RBC Hgb Hct MCV MCH MCHC RDW Plt Count Lymph % (Auto) Lymph # (Auto) Seg Neutrophils % Lymphocytes % (Manual) Seg Neutrophils # Seg Neutrophils # Man Lymphocytes # (Manual) D-Dimer ABG pH POC ABG pCO2 62.8 H POC ABG pO2 75.0 L ABG Hemoglobin 11.9 L ABG Oxyhemoglobin 93.2 L ABG Sodium 148.2 H ABG Potassium ABG Chloride 108.0 H ABG Glucose 150 H Carboxyhemoglobin Sodium Potassium Chloride Carbon Dioxide BUN Creatinine Glucose POC Glucose 116 H Calcium Magnesium Ferritin Alkaline Phosphatase Lactate Dehydrogenase Total Creatine Kinase CK-MB (CK-2) C-Reactive Protein Total Protein Albumin Triglycerides 250 H Arterial Blood Glucose 150 H Arterial Blood Ionized Calcium Coronavirus (PCR) SARS-CoV-2 IgG Ab 08/07/20 08/07/20 08/07/20 12:36 17:46 23:09 WBC RBC Hgb Hct MCV MCH MCHC RDW Plt Count Lymph % (Auto) Lymph # (Auto) Seg Neutrophils % Lymphocytes % (Manual) Seg Neutrophils # Seg Neutrophils # Man Lymphocytes # (Manual) D-Dimer ABG pH POC ABG pCO2 POC ABG pO2 ABG Hemoglobin ABG Oxyhemoglobin ABG Sodium ABG Potassium ABG Chloride ABG Glucose Carboxyhemoglobin Sodium Potassium Chloride Carbon Dioxide BUN Creatinine Glucose POC Glucose 160 H 168 H 111 H Calcium Magnesium Ferritin Alkaline Phosphatase Lactate Dehydrogenase Total Creatine Kinase CK-MB (CK-2) C-Reactive Protein Total Protein Albumin Triglycerides Arterial Blood Glucose Arterial Blood Ionized Calcium Coronavirus (PCR) SARS-CoV-2 IgG Ab 08/08/20 08/08/20 08/08/20 04:41 05:13 11:57 WBC RBC Hgb Hct MCV MCH MCHC RDW Plt Count Lymph % (Auto) Lymph # (Auto) Seg Neutrophils % Lymphocytes % (Manual) Seg Neutrophils # Seg Neutrophils # Man Lymphocytes # (Manual) D-Dimer ABG pH POC ABG pCO2 63.1 H POC ABG pO2 70.7 L ABG Hemoglobin 11.5 L ABG Oxyhemoglobin 91.0 L ABG Sodium 148.5 H ABG Potassium ABG Chloride 108.0 H ABG Glucose 102 H Carboxyhemoglobin Sodium Potassium Chloride Carbon Dioxide BUN Creatinine Glucose POC Glucose 122 H 225 H Calcium Magnesium Ferritin Alkaline Phosphatase Lactate Dehydrogenase Total Creatine Kinase CK-MB (CK-2) C-Reactive Protein Total Protein Albumin Triglycerides Arterial Blood Glucose 102 H Arterial Blood Ionized Calcium Coronavirus (PCR) SARS-CoV-2 IgG Ab 08/08/20 08/08/20 08/09/20 17:16 23:06 05:22 WBC RBC Hgb Hct MCV MCH MCHC RDW Plt Count Lymph % (Auto) Lymph # (Auto) Seg Neutrophils % Lymphocytes % (Manual) Seg Neutrophils # Seg Neutrophils # Man Lymphocytes # (Manual) D-Dimer ABG pH POC ABG pCO2 POC ABG pO2 ABG Hemoglobin ABG Oxyhemoglobin ABG Sodium ABG Potassium ABG Chloride ABG Glucose Carboxyhemoglobin Sodium Potassium Chloride Carbon Dioxide BUN Creatinine Glucose POC Glucose 188 H 129 H 112 H Calcium Magnesium Ferritin Alkaline Phosphatase Lactate Dehydrogenase Total Creatine Kinase CK-MB (CK-2) C-Reactive Protein Total Protein Albumin Triglycerides Arterial Blood Glucose Arterial Blood Ionized Calcium Coronavirus (PCR) SARS-CoV-2 IgG Ab 08/09/20 08/09/20 08/09/20 05:44 06:49 11:56 WBC RBC Hgb Hct MCV MCH MCHC RDW Plt Count Lymph % (Auto) Lymph # (Auto) Seg Neutrophils % Lymphocytes % (Manual) Seg Neutrophils # Seg Neutrophils # Man Lymphocytes # (Manual) D-Dimer ABG pH POC ABG pCO2 67.9 H POC ABG pO2 73.4 L ABG Hemoglobin 10.8 L ABG Oxyhemoglobin 92.7 L ABG Sodium 146.4 H ABG Potassium ABG Chloride ABG Glucose 165 H Carboxyhemoglobin Sodium 151 H Potassium Chloride 108.8 H Carbon Dioxide 39 H BUN 32 H Creatinine 0.6 L Glucose 189 H POC Glucose 217 H Calcium 8.1 L Magnesium Ferritin Alkaline Phosphatase Lactate Dehydrogenase Total Creatine Kinase CK-MB (CK-2) C-Reactive Protein Total Protein Albumin Triglycerides Arterial Blood Glucose 165 H Arterial Blood Ionized Calcium Coronavirus (PCR) SARS-CoV-2 IgG Ab 08/09/20 08/09/20 08/10/20 17:01 23:35 05:00 WBC RBC Hgb Hct MCV MCH MCHC RDW Plt Count Lymph % (Auto) Lymph # (Auto) Seg Neutrophils % Lymphocytes % (Manual) Seg Neutrophils # Seg Neutrophils # Man Lymphocytes # (Manual) D-Dimer ABG pH POC ABG pCO2 POC ABG pO2 ABG Hemoglobin ABG Oxyhemoglobin ABG Sodium ABG Potassium ABG Chloride ABG Glucose Carboxyhemoglobin Sodium 125 L D Potassium 3.5 L Chloride 88.7 L Carbon Dioxide 35 H BUN 25 H Creatinine 0.5 L Glucose 465 H POC Glucose 172 H 125 H Calcium 6.3 L D Magnesium Ferritin Alkaline Phosphatase Lactate Dehydrogenase Total Creatine Kinase CK-MB (CK-2) C-Reactive Protein Total Protein Albumin Triglycerides 1175 H Arterial Blood Glucose Arterial Blood Ionized Calcium Coronavirus (PCR) SARS-CoV-2 IgG Ab 08/10/20 08/10/20 08/10/20 05:09 05:24 08:00 WBC RBC Hgb Hct MCV MCH MCHC RDW Plt Count Lymph % (Auto) Lymph # (Auto) Seg Neutrophils % Lymphocytes % (Manual) Seg Neutrophils # Seg Neutrophils # Man Lymphocytes # (Manual) D-Dimer ABG pH 7.306 L POC ABG pCO2 75.1 H POC ABG pO2 76.1 L ABG Hemoglobin 10.7 L ABG Oxyhemoglobin ABG Sodium ABG Potassium ABG Chloride ABG Glucose 177 H Carboxyhemoglobin Sodium 131 L Potassium Chloride 93.0 L Carbon Dioxide 35 H BUN 28 H Creatinine 0.6 L Glucose 433 H POC Glucose 161 H Calcium 6.6 L Magnesium Ferritin Alkaline Phosphatase Lactate Dehydrogenase Total Creatine Kinase CK-MB (CK-2) C-Reactive Protein Total Protein Albumin Triglycerides 869 H Arterial Blood Glucose 177 H Arterial Blood Ionized Calcium Coronavirus (PCR) SARS-CoV-2 IgG Ab 08/10/20 08/10/20 08/10/20 11:15 13:23 13:23 WBC RBC 3.18 L Hgb 10.1 L Hct 31.3 L MCV 98 H MCH MCHC RDW Plt Count 123 L Lymph % (Auto) Lymph # (Auto) Seg Neutrophils % Lymphocytes % (Manual) Seg Neutrophils # Seg Neutrophils # Man Lymphocytes # (Manual) D-Dimer ABG pH POC ABG pCO2 POC ABG pO2 ABG Hemoglobin ABG Oxyhemoglobin ABG Sodium ABG Potassium ABG Chloride ABG Glucose Carboxyhemoglobin Sodium Potassium Chloride Carbon Dioxide 37 H BUN 29 H Creatinine 0.6 L Glucose 313 H POC Glucose 246 H Calcium 7.4 L Magnesium Ferritin Alkaline Phosphatase Lactate Dehydrogenase Total Creatine Kinase CK-MB (CK-2) C-Reactive Protein Total Protein Albumin Triglycerides Arterial Blood Glucose Arterial Blood Ionized Calcium Coronavirus (PCR) SARS-CoV-2 IgG Ab 08/10/20 08/10/20 08/10/20 13:23 16:43 23:20 WBC RBC Hgb Hct MCV MCH MCHC RDW Plt Count Lymph % (Auto) Lymph # (Auto) Seg Neutrophils % Lymphocytes % (Manual) Seg Neutrophils # Seg Neutrophils # Man Lymphocytes # (Manual) D-Dimer ABG pH POC ABG pCO2 POC ABG pO2 ABG Hemoglobin ABG Oxyhemoglobin ABG Sodium ABG Potassium ABG Chloride ABG Glucose Carboxyhemoglobin Sodium Potassium Chloride Carbon Dioxide BUN Creatinine Glucose POC Glucose 238 H 111 H Calcium Magnesium Ferritin Alkaline Phosphatase Lactate Dehydrogenase Total Creatine Kinase CK-MB (CK-2) C-Reactive Protein 22.70 H Total Protein Albumin Triglycerides Arterial Blood Glucose Arterial Blood Ionized Calcium Coronavirus (PCR) SARS-CoV-2 IgG Ab 08/11/20 08/11/20 08/11/20 04:33 05:19 09:00 WBC RBC Hgb Hct MCV MCH MCHC RDW Plt Count Lymph % (Auto) Lymph # (Auto) Seg Neutrophils % Lymphocytes % (Manual) Seg Neutrophils # Seg Neutrophils # Man Lymphocytes # (Manual) D-Dimer ABG pH POC ABG pCO2 66.9 H POC ABG pO2 65.2 L ABG Hemoglobin 10.5 L ABG Oxyhemoglobin 91.7 L ABG Sodium ABG Potassium ABG Chloride ABG Glucose 124 H Carboxyhemoglobin Sodium Potassium Chloride Carbon Dioxide 41 H* BUN 30 H Creatinine 0.5 L Glucose 204 H POC Glucose 106 H Calcium 8.1 L Magnesium Ferritin Alkaline Phosphatase Lactate Dehydrogenase Total Creatine Kinase CK-MB (CK-2) C-Reactive Protein Total Protein Albumin Triglycerides Arterial Blood Glucose 124 H Arterial Blood Ionized Calcium 4.5 L Coronavirus (PCR) SARS-CoV-2 IgG Ab 08/11/20 08/11/20 08/11/20 09:00 12:08 17:01 WBC RBC 3.01 L Hgb 9.6 L Hct 29.2 L MCV 97 H MCH MCHC RDW Plt Count Lymph % (Auto) Lymph # (Auto) Seg Neutrophils % Lymphocytes % (Manual) Seg Neutrophils # Seg Neutrophils # Man Lymphocytes # (Manual) D-Dimer ABG pH POC ABG pCO2 POC ABG pO2 ABG Hemoglobin ABG Oxyhemoglobin ABG Sodium ABG Potassium ABG Chloride ABG Glucose Carboxyhemoglobin Sodium Potassium Chloride Carbon Dioxide BUN Creatinine Glucose POC Glucose 201 H 150 H Calcium Magnesium Ferritin Alkaline Phosphatase Lactate Dehydrogenase Total Creatine Kinase CK-MB (CK-2) C-Reactive Protein Total Protein Albumin Triglycerides Arterial Blood Glucose Arterial Blood Ionized Calcium Coronavirus (PCR) SARS-CoV-2 IgG Ab 08/11/20 08/12/20 08/12/20 23:17 03:31 04:00 WBC RBC 2.98 L Hgb 9.4 L Hct 28.7 L MCV 97 H MCH MCHC RDW Plt Count Lymph % (Auto) Lymph # (Auto) Seg Neutrophils % Lymphocytes % (Manual) Seg Neutrophils # Seg Neutrophils # Man Lymphocytes # (Manual) D-Dimer ABG pH POC ABG pCO2 65.1 H POC ABG pO2 ABG Hemoglobin 9.9 L ABG Oxyhemoglobin ABG Sodium 145.6 H ABG Potassium ABG Chloride ABG Glucose 106 H Carboxyhemoglobin Sodium Potassium Chloride Carbon Dioxide BUN Creatinine Glucose POC Glucose 128 H Calcium Magnesium Ferritin Alkaline Phosphatase Lactate Dehydrogenase Total Creatine Kinase CK-MB (CK-2) C-Reactive Protein Total Protein Albumin Triglycerides Arterial Blood Glucose 106 H Arterial Blood Ionized Calcium Coronavirus (PCR) SARS-CoV-2 IgG Ab 08/12/20 08/12/20 08/12/20 04:00 07:14 08:32 WBC RBC Hgb Hct MCV MCH MCHC RDW Plt Count Lymph % (Auto) Lymph # (Auto) Seg Neutrophils % Lymphocytes % (Manual) Seg Neutrophils # Seg Neutrophils # Man Lymphocytes # (Manual) D-Dimer 5413.39 H ABG pH POC ABG pCO2 POC ABG pO2 ABG Hemoglobin ABG Oxyhemoglobin ABG Sodium ABG Potassium ABG Chloride ABG Glucose Carboxyhemoglobin Sodium 149 H 149 H Potassium Chloride Carbon Dioxide 39 H 39 H BUN 31 H 33 H Creatinine 0.5 L 0.5 L Glucose 173 H POC Glucose Calcium 8.0 L 8.1 L Magnesium Ferritin Alkaline Phosphatase Lactate Dehydrogenase Total Creatine Kinase CK-MB (CK-2) C-Reactive Protein Total Protein Albumin Triglycerides Arterial Blood Glucose Arterial Blood Ionized Calcium Coronavirus (PCR) SARS-CoV-2 IgG Ab 08/12/20 08/12/20 08/12/20 08:32 08:32 12:15 WBC RBC Hgb Hct MCV MCH MCHC RDW Plt Count Lymph % (Auto) Lymph # (Auto) Seg Neutrophils % Lymphocytes % (Manual) Seg Neutrophils # Seg Neutrophils # Man Lymphocytes # (Manual) D-Dimer ABG pH POC ABG pCO2 POC ABG pO2 ABG Hemoglobin ABG Oxyhemoglobin ABG Sodium ABG Potassium ABG Chloride ABG Glucose Carboxyhemoglobin Sodium Potassium Chloride Carbon Dioxide BUN Creatinine Glucose POC Glucose 270 H Calcium Magnesium Ferritin 1401.0 H Alkaline Phosphatase Lactate Dehydrogenase 378 H Total Creatine Kinase CK-MB (CK-2) C-Reactive Protein 19.50 H Total Protein Albumin Triglycerides Arterial Blood Glucose Arterial Blood Ionized Calcium Coronavirus (PCR) SARS-CoV-2 IgG Ab 08/12/20 08/12/20 08/13/20 17:52 23:07 05:13 WBC RBC Hgb Hct MCV MCH MCHC RDW Plt Count Lymph % (Auto) Lymph # (Auto) Seg Neutrophils % Lymphocytes % (Manual) Seg Neutrophils # Seg Neutrophils # Man Lymphocytes # (Manual) D-Dimer ABG pH POC ABG pCO2 POC ABG pO2 ABG Hemoglobin ABG Oxyhemoglobin ABG Sodium ABG Potassium ABG Chloride ABG Glucose Carboxyhemoglobin Sodium Potassium Chloride Carbon Dioxide BUN Creatinine Glucose POC Glucose 178 H 128 H 130 H Calcium Magnesium Ferritin Alkaline Phosphatase Lactate Dehydrogenase Total Creatine Kinase CK-MB (CK-2) C-Reactive Protein Total Protein Albumin Triglycerides Arterial Blood Glucose Arterial Blood Ionized Calcium Coronavirus (PCR) SARS-CoV-2 IgG Ab 08/13/20 08/13/20 08/13/20 06:30 12:08 14:12 WBC RBC Hgb Hct MCV MCH MCHC RDW Plt Count Lymph % (Auto) Lymph # (Auto) Seg Neutrophils % Lymphocytes % (Manual) Seg Neutrophils # Seg Neutrophils # Man Lymphocytes # (Manual) D-Dimer ABG pH 7.288 L POC ABG pCO2 81.8 H POC ABG pO2 ABG Hemoglobin 10.3 L ABG Oxyhemoglobin ABG Sodium 146.7 H ABG Potassium 5.3 H ABG Chloride ABG Glucose 278 H Carboxyhemoglobin Sodium 148 H Potassium Chloride Carbon Dioxide 41 H* BUN 31 H Creatinine 0.5 L Glucose 145 H POC Glucose 205 H Calcium 8.2 L Magnesium Ferritin Alkaline Phosphatase Lactate Dehydrogenase Total Creatine Kinase CK-MB (CK-2) C-Reactive Protein Total Protein Albumin Triglycerides 167 H Arterial Blood Glucose 278 H Arterial Blood Ionized Calcium Coronavirus (PCR) SARS-CoV-2 IgG Ab 08/13/20 08/13/20 08/14/20 17:39 23:23 04:00 WBC RBC Hgb Hct MCV MCH MCHC RDW Plt Count Lymph % (Auto) Lymph # (Auto) Seg Neutrophils % Lymphocytes % (Manual) Seg Neutrophils # Seg Neutrophils # Man Lymphocytes # (Manual) D-Dimer ABG pH 7.318 L POC ABG pCO2 77.2 H POC ABG pO2 82.4 L ABG Hemoglobin 10.2 L ABG Oxyhemoglobin ABG Sodium 147.2 H ABG Potassium 4.6 H ABG Chloride ABG Glucose 212 H Carboxyhemoglobin Sodium Potassium Chloride Carbon Dioxide BUN Creatinine Glucose POC Glucose 195 H 191 H Calcium Magnesium Ferritin Alkaline Phosphatase Lactate Dehydrogenase Total Creatine Kinase CK-MB (CK-2) C-Reactive Protein Total Protein Albumin Triglycerides Arterial Blood Glucose 212 H Arterial Blood Ionized Calcium Coronavirus (PCR) SARS-CoV-2 IgG Ab 08/14/20 08/14/20 08/14/20 05:00 05:13 08:50 WBC RBC 2.67 L Hgb 8.5 L Hct 26.6 L MCV 100 H MCH MCHC RDW Plt Count Lymph % (Auto) Lymph # (Auto) Seg Neutrophils % Lymphocytes % (Manual) Seg Neutrophils # Seg Neutrophils # Man Lymphocytes # (Manual) D-Dimer ABG pH POC ABG pCO2 POC ABG pO2 ABG Hemoglobin ABG Oxyhemoglobin ABG Sodium ABG Potassium ABG Chloride ABG Glucose Carboxyhemoglobin Sodium 151 H Potassium Chloride Carbon Dioxide 43 H* BUN 41 H Creatinine 0.6 L Glucose 195 H POC Glucose 183 H Calcium 7.9 L Magnesium Ferritin Alkaline Phosphatase Lactate Dehydrogenase Total Creatine Kinase CK-MB (CK-2) C-Reactive Protein Total Protein Albumin Triglycerides Arterial Blood Glucose Arterial Blood Ionized Calcium Coronavirus (PCR) SARS-CoV-2 IgG Ab 08/14/20 08/14/20 08/14/20 11:32 17:50 23:39 WBC RBC Hgb Hct MCV MCH MCHC RDW Plt Count Lymph % (Auto) Lymph # (Auto) Seg Neutrophils % Lymphocytes % (Manual) Seg Neutrophils # Seg Neutrophils # Man Lymphocytes # (Manual) D-Dimer ABG pH POC ABG pCO2 POC ABG pO2 ABG Hemoglobin ABG Oxyhemoglobin ABG Sodium ABG Potassium ABG Chloride ABG Glucose Carboxyhemoglobin Sodium Potassium Chloride Carbon Dioxide BUN Creatinine Glucose POC Glucose 147 H 244 H 138 H Calcium Magnesium Ferritin Alkaline Phosphatase Lactate Dehydrogenase Total Creatine Kinase CK-MB (CK-2) C-Reactive Protein Total Protein Albumin Triglycerides Arterial Blood Glucose Arterial Blood Ionized Calcium Coronavirus (PCR) SARS-CoV-2 IgG Ab 08/15/20 08/15/20 08/15/20 04:03 05:12 11:26 WBC RBC Hgb Hct MCV MCH MCHC RDW Plt Count Lymph % (Auto) Lymph # (Auto) Seg Neutrophils % Lymphocytes % (Manual) Seg Neutrophils # Seg Neutrophils # Man Lymphocytes # (Manual) D-Dimer ABG pH POC ABG pCO2 67.3 H POC ABG pO2 68.7 L ABG Hemoglobin 11.5 L ABG Oxyhemoglobin 91.5 L ABG Sodium ABG Potassium ABG Chloride ABG Glucose 172 H Carboxyhemoglobin Sodium Potassium Chloride Carbon Dioxide BUN Creatinine Glucose POC Glucose 150 H 181 H Calcium Magnesium Ferritin Alkaline Phosphatase Lactate Dehydrogenase Total Creatine Kinase CK-MB (CK-2) C-Reactive Protein Total Protein Albumin Triglycerides Arterial Blood Glucose 172 H Arterial Blood Ionized Calcium Coronavirus (PCR) SARS-CoV-2 IgG Ab 08/15/20 08/15/20 08/15/20 17:08 23:34 Unknown WBC 11.9 H RBC 2.70 L Hgb 8.5 L Hct 26.6 L MCV 99 H MCH MCHC RDW Plt Count Lymph % (Auto) Lymph # (Auto) Seg Neutrophils % Lymphocytes % (Manual) Seg Neutrophils # Seg Neutrophils # Man Lymphocytes # (Manual) D-Dimer ABG pH POC ABG pCO2 POC ABG pO2 ABG Hemoglobin ABG Oxyhemoglobin ABG Sodium ABG Potassium ABG Chloride ABG Glucose Carboxyhemoglobin Sodium Potassium Chloride Carbon Dioxide BUN Creatinine Glucose POC Glucose 187 H 160 H Calcium Magnesium Ferritin Alkaline Phosphatase Lactate Dehydrogenase Total Creatine Kinase CK-MB (CK-2) C-Reactive Protein Total Protein Albumin Triglycerides Arterial Blood Glucose Arterial Blood Ionized Calcium Coronavirus (PCR) SARS-CoV-2 IgG Ab 08/15/20 08/16/20 08/16/20 Unknown 01:24 04:00 WBC 13.3 H RBC 2.75 L Hgb 8.4 L Hct 27.2 L MCV 99 H MCH MCHC 31 L RDW Plt Count Lymph % (Auto) Lymph # (Auto) Seg Neutrophils % Lymphocytes % (Manual) Seg Neutrophils # Seg Neutrophils # Man Lymphocytes # (Manual) D-Dimer ABG pH 7.298 L POC ABG pCO2 76.5 H POC ABG pO2 65.6 L ABG Hemoglobin 9.7 L ABG Oxyhemoglobin 89 L ABG Sodium ABG Potassium ABG Chloride ABG Glucose 201 H Carboxyhemoglobin Sodium Potassium Chloride Carbon Dioxide 41 H* BUN 33 H Creatinine 0.4 L Glucose 167 H POC Glucose Calcium 8.0 L Magnesium Ferritin Alkaline Phosphatase Lactate Dehydrogenase Total Creatine Kinase CK-MB (CK-2) C-Reactive Protein Total Protein Albumin Triglycerides Arterial Blood Glucose 201 H Arterial Blood Ionized Calcium Coronavirus (PCR) SARS-CoV-2 IgG Ab 08/16/20 08/16/20 08/16/20 05:02 12:14 17:53 WBC RBC Hgb Hct MCV MCH MCHC RDW Plt Count Lymph % (Auto) Lymph # (Auto) Seg Neutrophils % Lymphocytes % (Manual) Seg Neutrophils # Seg Neutrophils # Man Lymphocytes # (Manual) D-Dimer ABG pH POC ABG pCO2 POC ABG pO2 ABG Hemoglobin ABG Oxyhemoglobin ABG Sodium ABG Potassium ABG Chloride ABG Glucose Carboxyhemoglobin Sodium Potassium Chloride Carbon Dioxide BUN Creatinine Glucose POC Glucose 161 H 195 H 177 H Calcium Magnesium Ferritin Alkaline Phosphatase Lactate Dehydrogenase Total Creatine Kinase CK-MB (CK-2) C-Reactive Protein Total Protein Albumin Triglycerides Arterial Blood Glucose Arterial Blood Ionized Calcium Coronavirus (PCR) SARS-CoV-2 IgG Ab 08/16/20 08/16/20 08/17/20 23:19 Unknown 01:38 WBC RBC Hgb Hct MCV MCH MCHC RDW Plt Count Lymph % (Auto) Lymph # (Auto) Seg Neutrophils % Lymphocytes % (Manual) Seg Neutrophils # Seg Neutrophils # Man Lymphocytes # (Manual) D-Dimer ABG pH POC ABG pCO2 73.5 H POC ABG pO2 ABG Hemoglobin 8.9 L ABG Oxyhemoglobin ABG Sodium ABG Potassium 4.6 H ABG Chloride ABG Glucose 149 H Carboxyhemoglobin 1.7 H Sodium 146 H Potassium Chloride Carbon Dioxide 36 H BUN 29 H Creatinine 0.4 L Glucose 176 H POC Glucose 140 H Calcium 7.7 L Magnesium Ferritin Alkaline Phosphatase Lactate Dehydrogenase Total Creatine Kinase CK-MB (CK-2) C-Reactive Protein Total Protein Albumin Triglycerides Arterial Blood Glucose 149 H Arterial Blood Ionized Calcium Coronavirus (PCR) SARS-CoV-2 IgG Ab 08/17/20 08/17/20 08/17/20 05:19 07:57 07:57 WBC 11.5 H RBC 2.28 L Hgb 7.4 L Hct 22.7 L MCV 99 H MCH 33 H MCHC RDW Plt Count Lymph % (Auto) Lymph # (Auto) Seg Neutrophils % Lymphocytes % (Manual) Seg Neutrophils # Seg Neutrophils # Man Lymphocytes # (Manual) D-Dimer ABG pH POC ABG pCO2 POC ABG pO2 ABG Hemoglobin ABG Oxyhemoglobin ABG Sodium ABG Potassium ABG Chloride ABG Glucose Carboxyhemoglobin Sodium Potassium Chloride Carbon Dioxide 41 H* BUN 32 H Creatinine 0.5 L Glucose 228 H POC Glucose 199 H Calcium 7.9 L Magnesium Ferritin Alkaline Phosphatase Lactate Dehydrogenase Total Creatine Kinase CK-MB (CK-2) C-Reactive Protein Total Protein Albumin Triglycerides Arterial Blood Glucose Arterial Blood Ionized Calcium Coronavirus (PCR) SARS-CoV-2 IgG Ab
[2020-08-17] MEDS ORDERED: SODIUM BICARB 8.4% 50 MEQ/50 ML SYRINGE IV ONE (15:16)
[2020-08-17] MEDS ORDERED: EPINEPHrine 1 MG/10 ML SYRINGE ONE (15:16)
--- NOTE | 2020-08-17 15:28 | Event Note ---
Date: 08/17/20 CODE BLUE NOTE (Full dictation # ) Please see dictated notes for full details
--- NOTE | 2020-08-17 15:59 | Progress Note ---
Assessment and Plan Critical care statement The high probability OF a clinically significant sudden or life-threatening deterioration of the cardiorespiratory system and endocrine system required my full and direct attention, intervention and postoperative management. The aggregate critical care time was 32 minutes. The time is in addition to time spent performing reported procedures but includes the followin: Data review and interpretation 2: Patient assessment and monitoring of vital signs 3: Documentation 4:: Medication orders and management s/p CODE BLUE ACLS protocol and patient revived was informed about his condition --Acute hypoxc respiratory failure on Vent Current Visit: Yes Status: Acute Plan to address problem: Weaning in progress Prognosis is poor -- Hypernatremia increase water intake Sodium increased from 1 45-1 50 --COVID-19 positive Continue contact and droplet isolation, --Elevated D-dimers; CTA chest negative for PE, mild pulmonary edema, -- Pneumonia Current Visit: Yes Status: Acute Plan to address problem: Off antibiotics --Severe protein calorie Malnutrition 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 -- Full code status Current Visit: Yes Status: Acute Plan to address problem: Patient is a full code. Advance care planning Current Visit: Yes Status: Acute Plan to address problem: Disease education conducted, patient is full code, patient has poor prognosis. Prognosis discussed. +30 minutes. Subjective Date of service: 08/17/20 Principal diagnosis: Acute respiratory failure with hypoxia, Covid pneumonia Interval history: History Assessment and plan: 60 YO Male HD #23 with acute hypoxemic respiratory failure, bilateral pneumonia secondary to coronavirus infection, cough who is currently intubated and on ventilatory support. Patient has poor prognosis. Patient currently unable to be weaned from ventilatory support. Patient has poor prognosis. No acute decompensation overnight. Closely monitor the patient and adjust management as needed Follow CTA chest, and inflammatory markers Consults recommendations noted and appreciated Plan of care reviewed with the patient and his nurse 07/20; patient is severely hypoxemic, on high flow oxygen 40 L/100%/O2 sats 95 Elevated D-dimers, patient is severely hypoxemic, will check CTA chest to rule out PE Also consider lower extremity venous Doppler to rule out DVT 07/21: Patient remains on high flow oxygen however mild improvement from 40 L to 35 l Tolerating prone position, continue steroids remdesivir CTA chest negative for PE, lower extremity venous Doppler negative for DVT Consults recommendations noted and appreciated Poor prognosis, patient is aware 07/22/2020; patient feels slightly better remains on high flow oxygen however lower than yesterday 35 L/95% /O2 sat 94% 07/21/2020 advised the patient to rest in prone position as tolerated Home oxygen evaluation 07/23/2020; remains on high flow oxygen, continue steroids remdesivir, prone position and comfort care Patient is critically ill with very poor prognosis and prolonged hypoxemia on high flow oxygen Plan of care reviewed with the patient and his nurse 07/24/2020; patient was severely hypoxemic rapid response called oxygen settings adjusted patient is currently better, requiring high flow oxygen right from the day he was admitted, poor prognosis, discussed with patient's 07/25/2020; patient remains on high flow oxygen in mild distress, overall prognosis poor I discussed with , and family friend physician extensively yesterday Poor prognosis continue current management 07/26/2020; patient remains on high flow oxygen 40 L/100%/95% O2 sat +100% nonrebreather Patient is critically ill, poor prognosis, ID pulmonary following 07/27/2020; patient remains on high flow oxygen 40 L/100%/[address] 100% nonrebreather Very poor prognosis, patient and family aware Pulmonary recommendations noted and appreciated 07/28/2020; patient remains critically ill, remains dependent on high flow oxygen 40 L +100% nonrebreather Very poor prognosis. 07/29/2020 Remains critically ill On high flow oxygen 07/30/2020 On high flow oxygen Is critically ill 07/31/2020 On high flow oxygen Critically ill 08/01/2020 on high flow oxygen Critically ill 08/02/2020 On Vent Weaning in progress 08/03/20 On Vent Weaning in progress 08/04/20 On vent Weaning in progress 08/05/20 Did not increase PEEP yesterday. PaO2 improved on own. Will wean FiO2 down today for sats >88%. Hold on proning for now. Continue steroids. Needs better rate control. Most likely sinus tach from hypoxemia, 08/08: Patient remains on full ventilatory support, critically ill, Proninng per Reclamation Supervisor. Down to 60% oxygen FIO2. PEEP Lasix 20mg IV x 1 today, Consider changing to full dose anticoagulation. Discussed with Reclamation Supervisor. Check Osmolality. Monitor Plt considering Lovenox Spoke with extensively and sister. 08/10; Continue supportive care, No significant clinical change, monitor for fever, continue pronining if tolerated. Being changed to Versed due to worsening triglycerides propofol has been stopped. Will discuss with critical care physician if some additional Lasix trial will be done as well monitoring patient's renal function. I have called and left a message for the family. 08/11: Continues with persistent hypoxia and hypercapnia. Intermittent fever. No elevated leukocytosis. Will reconsult ID to assist with management of this. Continue on full dose anticoagulation while monitoring H&H. We will hold off any further Lasix due to noted elevated bicarb. We will continue to monitor 08/12: Discussed with nursing staff. Also reviewed physical integration practitioner per documentation. Patient remains critically ill with no change for the better or for worse. Discussed with nursing staff patient still moves around but nonpurposeful movements not following commands. Will reevaluate during sedation vacation. We will continue to monitor hypernatremia and adjust fluids to help with improvement. I have called and update family, answered all questions. We will continue pronging 08/13: Updated family, Unfortunately no improvement, Will discuss with Reclamation Supervisor if Diamox should be tried. Continue monitoring and on Restraints. 08/14: Continue supportive care. Will update family tomorrow. Continue to wean oxygen as tolerated. Pulmonary input noted patient on D5W for the next 24 hours while free water has been increased no diuresis or Diamox at this time per their recommendation. Prognosis remains guarded. 08/15: Continue supportive care. Await a.m. labs. Blood sugar sodium improved on D5 water. Still no clinical change. Discussed with clinical team Decadron has been discontinued. No clinical improvement 08/16: Discussing Trach and PEG with the family. Continue supportive care, Discussed with Pulmonary, will trial Lasix today, Prone as tolerated. Spoke with spouse [phone], she will come in to see him. she wants to know if he is in a coma. I have provided detailed explanation of his critical nature. Will defer to my colleagues to keep updating her. Prognosis is guarded to poor 08/17/2020 Patient coded around 15 hours ACLS protocol was initiated and patient revived I called his spouse at [phone] and informed of the code and his condition in the posterolateral state. Patient is unstable Informed that the patient is unstable Objective - Constitutional Vitals: Vital Signs - 12hr 08/17/20 08/17/20 08/17/20 04:00 04:15 04:30 Temperature 99.3 F Pulse Rate 101 H 103 H 100 H Pulse Rate [ 114 H From Monitor] Respiratory 37 H 32 H 39 H Rate Blood Pressure 125/63 125/63 111/64 O2 Sat by Pulse 97 97 97 Oximetry 08/17/20 08/17/20 08/17/20 04:45 05:00 05:15 Temperature Pulse Rate 105 H 105 H 105 H Pulse Rate [ From Monitor] Respiratory 38 H 31 H 40 H Rate Blood Pressure 111/64 116/63 116/63 O2 Sat by Pulse 97 98 98 Oximetry 08/17/20 08/17/20 08/17/20 05:30 05:45 06:00 Temperature Pulse Rate 104 H 104 H 107 H Pulse Rate [ From Monitor] Respiratory 33 H 38 H 27 H Rate Blood Pressure 106/64 106/64 100/64 O2 Sat by Pulse 98 97 97 Oximetry 08/17/20 08/17/20 08/17/20 06:15 06:30 06:45 Temperature Pulse Rate 104 H 105 H 99 H Pulse Rate [ From Monitor] Respiratory 41 H 36 H 37 H Rate Blood Pressure 100/64 94/64 94/64 O2 Sat by Pulse 96 97 95 Oximetry 08/17/20 08/17/20 08/17/20 07:00 07:15 07:31 Temperature Pulse Rate 101 H 103 H 102 H Pulse Rate [ From Monitor] Respiratory 29 H 25 H 24 Rate Blood Pressure 112/67 112/67 105/63 O2 Sat by Pulse 96 96 96 Oximetry 08/17/20 08/17/20 08/17/20 07:45 08:00 08:01 Temperature Pulse Rate 103 H 99 H 103 H Pulse Rate [ 99 H From Monitor] Respiratory 30 H 30 H 19 Rate Blood Pressure 105/63 144/65 O2 Sat by Pulse 96 96 94 Oximetry 08/17/20 08/17/20 08/17/20 08:08 08:15 08:30 Temperature Pulse Rate 100 H 100 H 101 H Pulse Rate [ From Monitor] Respiratory 30 H 31 H Rate Blood Pressure 144/65 144/65 100/67 O2 Sat by Pulse 95 95 96 Oximetry 08/17/20 08/17/20 08/17/20 08:45 09:01 09:15 Temperature Pulse Rate 103 H 103 H 102 H Pulse Rate [ From Monitor] Respiratory 29 H 31 H 30 H Rate Blood Pressure 100/67 115/70 115/70 O2 Sat by Pulse 96 97 97 Oximetry 08/17/20 08/17/20 08/17/20 09:30 09:45 10:00 Temperature Pulse Rate 103 H 103 H 109 H Pulse Rate [ From Monitor] Respiratory 21 19 31 H Rate Blood Pressure 108/66 108/66 101/65 O2 Sat by Pulse 95 94 94 Oximetry 08/17/20 08/17/20 08/17/20 10:15 10:30 10:45 Temperature Pulse Rate 106 H 105 H 105 H Pulse Rate [ From Monitor] Respiratory 31 H 32 H 30 H Rate Blood Pressure 101/65 95/68 108/66 O2 Sat by Pulse 96 95 96 Oximetry 08/17/20 08/17/20 08/17/20 11:01 11:15 11:30 Temperature Pulse Rate 105 H 104 H 103 H Pulse Rate [ From Monitor] Respiratory 30 H 31 H 31 H Rate Blood Pressure 119/71 119/71 101/71 O2 Sat by Pulse 97 96 97 Oximetry 08/17/20 08/17/20 08/17/20 11:45 12:00 12:01 Temperature Pulse Rate 103 H 104 H 104 H Pulse Rate [ 104 H From Monitor] Respiratory 30 H 30 H 30 H Rate Blood Pressure 101/71 119/71 O2 Sat by Pulse 96 93 96 Oximetry 08/17/20 08/17/20 08/17/20 12:15 12:30 12:39 Temperature Pulse Rate 102 H 105 H 103 H Pulse Rate [ From Monitor] Respiratory 19 31 H Rate Blood Pressure 101/71 103/67 103/67 O2 Sat by Pulse 92 93 93 Oximetry 08/17/20 08/17/20 08/17/20 12:45 13:01 13:15 Temperature Pulse Rate 106 H 107 H 107 H Pulse Rate [ From Monitor] Respiratory 31 H 31 H 25 H Rate Blood Pressure 119/71 115/67 103/67 O2 Sat by Pulse 93 93 92 Oximetry 08/17/20 08/17/20 08/17/20 13:31 13:45 14:01 Temperature Pulse Rate 110 H 110 H 111 H Pulse Rate [ From Monitor] Respiratory 31 H 31 H 31 H Rate Blood Pressure 126/66 115/67 138/67 O2 Sat by Pulse 90 93 94 Oximetry 08/17/20 08/17/20 08/17/20 14:15 14:31 14:45 Temperature Pulse Rate 112 H 120 H 115 H Pulse Rate [ From Monitor] Respiratory 31 H 18 12 Rate Blood Pressure 138/67 138/67 124/76 O2 Sat by Pulse 93 78 L 99 Oximetry General appearance: Present: severe distress, well-nourished - EENT Eyes: PERRL, EOM intact ENT: hearing intact, clear oral mucosa Ears: bilateral: normal - Neck Neck: supple, normal ROM - Respiratory Respiratory effort: normal Respiratory: bilateral: CTA, rhonchi (Scattered) - Breasts Breasts: normal - Cardiovascular Heart rate: 98 Rhythm: regular Heart Sounds: Present: S1 & S2. Absent: gallop, rub Extremities: pulses intact, No edema, normal color, Full ROM - Gastrointestinal General gastrointestinal: Present: soft, non-tender, non-distended, normal bowel sounds - Genitourinary Male genitourinary: normal - Integumentary Integumentary: clear, warm, dry - Musculoskeletal Musculoskeletal: 1, strength equal bilaterally - Neurologic Neurologic: moves all extremities - Psychiatric Psychiatric: memory intact, appropriate mood/affect, intact judgment & insight - Labs CBC & Chem 7: 08/17/20 15:55 08/17/20 15:55 Labs: Abnormal lab results 08/16/20 08/16/20 08/16/20 Range/Units 12:14 17:53 23:19 WBC (4.5-11.0) K/mm3 RBC (3.65-5.03) M/mm3 Hgb (11.8-15.2) gm/dl Hct (35.5-45.6) % MCV (84-94) fl MCH (28-32) pg POC ABG pCO2 (32.0-48.0) mmHg ABG Hemoglobin (12.0-17.5) ABG Potassium (3.40-4.50) mmol/L ABG Glucose (65-95) mg/dL Carboxyhemoglobin (0.5-1.5) Carbon Dioxide (22-30) mmol/L BUN (9-20) mg/dL Creatinine (0.8-1.3) mg/dL Glucose (75-100) mg/dL POC Glucose 195 H 177 H 140 H (70-105) mg/dL Calcium (8.4-10.2) mg/dL Arterial Blood Glucose (65-95) mg/dL 08/17/20 08/17/20 08/17/20 Range/Units 01:38 05:19 07:57 WBC 11.5 H (4.5-11.0) K/mm3 RBC 2.28 L (3.65-5.03) M/mm3 Hgb 7.4 L (11.8-15.2) gm/dl Hct 22.7 L (35.5-45.6) % MCV 99 H (84-94) fl MCH 33 H (28-32) pg POC ABG pCO2 73.5 H (32.0-48.0) mmHg ABG Hemoglobin 8.9 L (12.0-17.5) ABG Potassium 4.6 H (3.40-4.50) mmol/L ABG Glucose 149 H (65-95) mg/dL Carboxyhemoglobin 1.7 H (0.5-1.5) Carbon Dioxide (22-30) mmol/L BUN (9-20) mg/dL Creatinine (0.8-1.3) mg/dL Glucose (75-100) mg/dL POC Glucose 199 H (70-105) mg/dL Calcium (8.4-10.2) mg/dL Arterial Blood Glucose 149 H (65-95) mg/dL 08/17/20 Range/Units 07:57 WBC (4.5-11.0) K/mm3 RBC (3.65-5.03) M/mm3 Hgb (11.8-15.2) gm/dl Hct (35.5-45.6) % MCV (84-94) fl MCH (28-32) pg POC ABG pCO2 (32.0-48.0) mmHg ABG Hemoglobin (12.0-17.5) ABG Potassium (3.40-4.50) mmol/L ABG Glucose (65-95) mg/dL Carboxyhemoglobin (0.5-1.5) Carbon Dioxide 41 H* (22-30) mmol/L BUN 32 H (9-20) mg/dL Creatinine 0.5 L (0.8-1.3) mg/dL Glucose 228 H (75-100) mg/dL POC Glucose (70-105) mg/dL Calcium 7.9 L (8.4-10.2) mg/dL Arterial Blood Glucose (65-95) mg/dL HEART Score - HEART Score Troponin: Troponin T 0.018 ng/mL (0.00-0.029) 07/30/20 10:33
[2020-08-17 16:06] LABS: Hematocrit 23.6 % (35.5-45.6); Hemoglobin 7.5 gm/dl (11.8-15.2); Mean Corpuscular HGB Conc 32 % (32-34); Mean Corpuscular Volume 99 fl (84-94); Platelet Count 246 K/mm3 (140-440); Red Blood Count 2.39 M/mm3 (3.65-5.03); Red Cell Distribution Width 14.5 % (13.2-15.2)
--- NOTE | 2020-08-17 16:12 | XRay Report ---
XR chest 1V ap INDICATION / CLINICAL INFORMATION: ETT placement. COMPARISON: 08/11/2020 FINDINGS: SUPPORT DEVICES: Endotracheal tube terminates appropriately at the level of the clavicular heads. PI CC line terminates in the SVC. Enteric tube courses beneath the diaphragm with tip not visualized. HEART / MEDIASTINUM: Unchanged. LUNGS / PLEURA: Airspace disease is worse compared to the prior examination. No pneumothorax. ADDITIONAL FINDINGS: No significant additional findings. IMPRESSION: 1. Worsening airspace disease. Signer Name: Bob Brown MD Signed: 08/17/2020 4:08 PM Workstation Name: [id number]
[2020-08-17 16:26] LABS: Blood Urea Nitrogen 36 mg/dL (9-20); Calcium 7.8 mg/dL (8.4-10.2); Hemolysis Index 6
[2020-08-17 16:31] LABS: BUN/Creatinine Ratio 60
[2020-08-17] MEDS ORDERED: INSULIN LISPRO 100 UNIT/ML SUB-Q ONE (19:47)
[2020-08-17] MEDS: traZODone 50 MG TAB PO SCH (21:38)
[2020-08-17] MEDS: ACETAMINOPHEN 325 MG TAB PO PRN (21:38)
[2020-08-18] MEDS: INSULIN LISPRO 100 UNIT/ML VIAL 3 mL SUB-Q SCH ×4 (00:26→17:34)
[2020-08-18] MEDS: fentaNYL DRIP Premix 2,000 MCG/100 ML BAG IV SCH ×5 (02:30→22:20)
--- NOTE | 2020-08-18 07:09 | Progress Note ---
Assessment and Plan Culture: Blood culture 08/02/2020 no growth Urine culture 08/02/2020<10,000 mixed bacteria Tracheal aspirate 08/02/2020 poor specimen Blood culture 08/10/2020 no growth today Tracheal aspirate 08/12/2020 normal resp chasidy Urine culture 08/12/2020 mixed bacteria MRSA PCR neg Assessment: 60 years old male initially admitted on 07/17/2020 secondary to 2- week history of shortness of breath and cough, found to have severe COVID-19 pneumonia, treated with Decadron and remdesivir, respiratory failure worsened intubated on 07/31/2020, remains on the ventilator since then, noted with a new intermittent fever on 08/01/2020 until yesterday: #Cardiac arrest/asystole: On 08/17/2020 treated with epinephrine x2 #New SIRS rule out sepsis: Not present on admission. Fever resolved, leukocytosis is up. Of unclear etiology. Possibilities: nosocomial pneumonia (however recent chest x-ray shows improved infiltrates), DVT/PEs?, Oppo rtunistic infection due to prolonged steroid use. Steroids stopped. Repeat UA neg. Procal 0.9-->0.5 #Critical COVID-19 pneumonia: Inflammatory markers elevated. D-dimer was > 10,000, CT chest shows no pulmonary embolism, positive bilateral groundglass opacities. Venous ultrasound no DVT. Markers improving. #Acute hypoxemic respiratory failure: Patient intubated, likely secondary to COVID-19. Worsening FiO2 100%. #Right lip lesion:? Herpes labialis, treated with valtrex. Recommendations: -Anticoagulation per protocol -Continue cefepime 2 g IV every 12 hours empirically D7 of 7 -Repeat procalcitonin -Repeat markers today Guarded prognosis Nola Canas MD [facility] ([facility]) Office [phone] Subjective Date of service: 08/18/20 Principal diagnosis: Acute respiratory failure with hypoxia, Covid pneumonia Interval history: Remains intubated FiO2 100%, PEEP 16, sedated on propofol and fentanyl, had an apisode of bradycardia on monitor, then asystole, was given 2 epinephrine ampules. Tmax 100.8 overnight. Objective - Exam Narrative Exam: Physical exam deferred to minimize COVID-19 transmission during pandemic. ER and internal medicine physical examination notes reviewed. - Constitutional Vitals: Vital Signs Temp Pulse Resp BP Pulse Ox 99.0 F 95 H 31 H 114/69 94 08/18/20 04:00 08/18/20 06:00 08/18/20 06:00 08/18/20 06:00 08/18/20 06:00 Temperature -Last 24 Hours Temperature 99.0 F Temperature 99 F Temperature 100.5 F Temperature 100.8 F Temperature 98.8 F Temperature 98.9 F Temperature 99.3 F - Labs CBC & Chem 7: 08/17/20 15:55 08/17/20 15:55 Labs: Abnormal lab results 08/17/20 08/17/20 08/17/20 Range/Units 07:57 07:57 11:48 WBC 11.5 H (4.5-11.0) K/mm3 RBC 2.28 L (3.65-5.03) M/mm3 Hgb 7.4 L (11.8-15.2) gm/dl Hct 22.7 L (35.5-45.6) % MCV 99 H (84-94) fl MCH 33 H (28-32) pg ABG pH (7.320-7.450) POC ABG pCO2 (32.0-48.0) mmHg POC ABG pO2 (83-108) mmHg ABG Hemoglobin (12.0-17.5) ABG Oxyhemoglobin (94-98) ABG Sodium (136.0-145.0) mmol/L ABG Potassium (3.40-4.50) mmol/L ABG Glucose (65-95) mg/dL Carboxyhemoglobin (0.5-1.5) Sodium (137-145) mmol/L Carbon Dioxide 41 H* (22-30) mmol/L BUN 32 H (9-20) mg/dL Creatinine 0.5 L (0.8-1.3) mg/dL Glucose 228 H (75-100) mg/dL POC Glucose 236 H (70-105) mg/dL Calcium 7.9 L (8.4-10.2) mg/dL Arterial Blood Glucose (65-95) mg/dL 08/17/20 08/17/20 08/17/20 Range/Units 15:25 15:55 15:55 WBC 13.3 H (4.5-11.0) K/mm3 RBC 2.39 L (3.65-5.03) M/mm3 Hgb 7.5 L (11.8-15.2) gm/dl Hct 23.6 L (35.5-45.6) % MCV 99 H (84-94) fl MCH (28-32) pg ABG pH 6.988 L (7.320-7.450) POC ABG pCO2 186.3 H (32.0-48.0) mmHg POC ABG pO2 (83-108) mmHg ABG Hemoglobin 8.9 L (12.0-17.5) ABG Oxyhemoglobin 90.9 L (94-98) ABG Sodium (136.0-145.0) mmol/L ABG Potassium 4.6 H (3.40-4.50) mmol/L ABG Glucose 299 H (65-95) mg/dL Carboxyhemoglobin (0.5-1.5) Sodium 150 H (137-145) mmol/L Carbon Dioxide 42 H* (22-30) mmol/L BUN 36 H (9-20) mg/dL Creatinine 0.6 L (0.8-1.3) mg/dL Glucose 268 H (75-100) mg/dL POC Glucose (70-105) mg/dL Calcium 7.8 L (8.4-10.2) mg/dL Arterial Blood Glucose 299 H (65-95) mg/dL 08/17/20 08/17/20 08/17/20 Range/Units 17:34 17:53 23:28 WBC (4.5-11.0) K/mm3 RBC (3.65-5.03) M/mm3 Hgb (11.8-15.2) gm/dl Hct (35.5-45.6) % MCV (84-94) fl MCH (28-32) pg ABG pH (7.320-7.450) POC ABG pCO2 75.4 H (32.0-48.0) mmHg POC ABG pO2 201.3 H (83-108) mmHg ABG Hemoglobin 8.8 L (12.0-17.5) ABG Oxyhemoglobin (94-98) ABG Sodium 145.5 H (136.0-145.0) mmol/L ABG Potassium (3.40-4.50) mmol/L ABG Glucose 231 H (65-95) mg/dL Carboxyhemoglobin 1.7 H (0.5-1.5) Sodium (137-145) mmol/L Carbon Dioxide (22-30) mmol/L BUN (9-20) mg/dL Creatinine (0.8-1.3) mg/dL Glucose (75-100) mg/dL POC Glucose 181 H 136 H (70-105) mg/dL Calcium (8.4-10.2) mg/dL Arterial Blood Glucose 231 H (65-95) mg/dL
[2020-08-18] MEDS: CEFEPIME/NS 2 GM/100 ML 2 GM/100 ML BAG IV SCH ×2 (10:07→21:11)
[2020-08-18] MEDS: FAMOTIDINE 20 MG TAB PO SCH ×2 (10:09→21:12)
[2020-08-18] MEDS: ASCORBIC ACID 500 MG TAB PO SCH ×2 (10:09→21:12)
[2020-08-18] MEDS: CHOLECALCIFEROL (VIT D3) 5,000 UNIT TAB PO SCH (10:09)
[2020-08-18] MEDS: ENOXAPARIN 100 MG/1 ML INJ SUB-Q SCH ×2 (10:09→21:11)
[2020-08-18] MEDS: SENNOSIDES/DOCUSATE SODIUM 8.6/50 MG TAB PO SCH ×2 (10:09→21:12)
[2020-08-18] MEDS: ZINC SULFATE 220 MG CAP PO SCH (10:09)
--- NOTE | 2020-08-18 11:01 | Progress Note ---
Assessment and Plan 60 y/o male with chest discomfort, shortness of breath and abnormal CXR, COVID Positive 08/18/20: Day 17 of intubation. No lasix again today. Hold on proning for now. Back down to 55%. Sedatives for comfort while on vent. Renal function remains stable. Per IMS note updated. Per nursing, is persuing transfer to another hospital. Overall prognosis is very guarded. Resume feeds and check chemistry and CBC for today. Does have what appears to be a respiratory alkalosis but checking bicarb as well to see if patient would need Diamox. IMS to update family. 08/17/20: Day 16 of intubation. Hold on lasix therapy today. Prone again today. Wean for sats greater than 88% and PaO2 greater than 55. Continue sedation with all three meds but will increase diprovan to decrease the versed as this drug tends to linger in the system. Family visited yesterday per nursing report but upset as patient was already prone when they got here. Guarded prognosis. [facility] please update in regards to current care and remind them about the fact of needing trach if we get to this point. 08/16/20: Day 15 of intubation. Agree with lasix therapy. will give 40 IV x1. Will prone today as Wound Care had not further recs in regards to wounds on lip. Will be very cautions when proning. Will also add back diprovan today to see if this helps with breathing pattern. Prognosis is guarded. IMS to speak with family again today and mentioned that they may ask the to come and visit. 08/15/20: Day 14 of intubation. Stopped steroids over the weekend. Last bicarb was 43 but this was yesterday. Wound care consult. Hopeful they can given us something so that we can start proning again. Hold on proning now. Agree with weaning sedation as tolerated. still making good urine. Agree with D5 but now sodium in normal range now so can discontinue. Prognosis remains guarded. Patient will most likely require a trach if able to be weaned successfully. If possible please discuss the possiblity of this with the family. I like to discuss these things early if possible so it does not come as a shock. I have not developed the best rapport with them so I am asking the [facility] physician to mention this today when they update the family. 08/12/20: Day 11 of intubation. Bicarb is down to 39. pH is not alkalotic. Maxed on Versed at 5 and currently Fentanyl at 4. Urine output remains stable. Will continue proning although has not been responding as well as possible. Hold on diuretic therapy. Needs more free water flushes vs D5W to help with elevated sodium. Guarded prognosis. Please discuss with family that pulmonary [place] unfortunately there has been no change, however he has not gotten worse. we will continue steroid therapy as well as proning. We will wean the oxygen as best we can when his saturations will tolerate it. 08/11/20: Day 10 of intubation. Most likely elevated bicarb is from Steroids (has been on them 25 days). No need to treat at the moment. If his serum bicarb gets about 45-46 will treat with diamox therapy. This will remove bicarb and help with volume. Hold on any further lasix therapy for now also. Will repeat Trigylcerides over the weekend. No diprovan at this time. If more sedation is needed, can look at pentobarb or phenobarbital coma to assist with sedation. Daily labs to monitor renal function. Prognosis remains very guarded. Wean FiO2 for sats>88% 08/10/20: Day 9 of intubation. Unfortunately we must stop diprovan. Will place patient on Versed drip along with Fentanyl drip. Needs daily chemistries to assess renal function so that medication does not build up in patient system. All free water drips as well as flushes have been stopped. Will repeat Chemistry again today at 1400. Prone again today as well. Wean FiO2 for sats >88%. If able to speak with family, would I would tell them is that patient remains critically ill and we will continue to prone on a daily basis to help with oxygenation. I would also tell them we changed the sedation to prevent complications from higher levels. His renal function so far has remained stable which is a good thing but we will monitor it daily. Overall prognosis is still guarded to poor. 08/09/20: Day 8 of intubation. Continue proning as patient is tolerating this and making slow improvement. Continue PEEP at current settings. IMS will update family and I will discuss with IMS my medical opinion to be conveyed to them. 08/08/20: Prone again today. Same weaning parameters as yesterday. Will order labs for am. Calling now and see if she needs the other the family on the phone to update her. Prognosis still remains very guarded to poor. Asked RT to be as aggressive as possible with weaning FiO2. The unfortunately is not understanding how sick the patient is. I am trying my best to explain to her on a daily basis about this. But she does not accept when I tell her that he has remained stable. 08/07/20: Will prone again today. Wean FiO2 for sats >88% and PaO2 >55. Continue to monitor daily urine function and output. I again today explained the severity of the Mr. Suarez's clinical state as best I could using laymen ter ms. The other family member on the phone says that the communication has not bee consistent. The patient received Remdesivir while he was on the floor. He did get all 5 doses. I explained to the family that there is no indication for longer therapy or ID would have recommended. I also explained to them that I have extended the steroids to see if this would help beyond the current clinical recommendations. I also explained again that there is no cure for COVID 19 and that all measures are experimental as well as supportive. I also explained why he needs sedation while intubated and especially when proning. I am still not sure that they fully understand the extent of his illness but will continue to speak with them. Guarded prognosis. 08/06/20: Increase PEEP today to 16. Repeat gas tomorrow morning. Wean FiO2 today for sats >88%. Spoke with RT and PaO2 of 55 and greater are ok. will prone tonight for 12 hours at least. Remains in sinus tach. No labs drawn this am will order for stat this morning including BMP and Mag and Phos, CBC. Spoke with this am to update her. She is upset and asks to do everything for him that we can which I told her we would. I was also very honest about the severity of the disease which made her even more sad. 08/05/20: Did not increase PEEP yesterday. PaO2 improved on own. Will wean FiO2 down today for sats >88%. Hold on proning for now. Continue steroids. Needs better rate control. Most likely sinus tach from hypoxemia, but needs 12 lead if not done yet. Needs labs checked to assess electrolytes. Prognosis remains guarded to poor. Will attempt to reach today, if not today tomorrow. 08/04/20: Will increase PEEP to 16 today. If no improvement in the next 24 hours then will start proning patient tomorrow night. Continue steroids. Overall prognosis remains very guarded. 08/03/20: Chemistry not ordered, ordered today. Follow up blood cultures. Increased PEEP to 14 and RT will attempt to wean FiO2 back down to 50's. Will continue steroids at current dosing for now. He has already completed to or iginal 10 days. Given some improvement, would like to continue. Overall prognosis remains very guarded. 08/02/20: Check blood and urine cultures along with UA. Will check repeat CXR. Repeat Chemistry tomorrow. Hold on abx therapy for right now. Prognosis remains guarded. Continue steroids. Wean FiO2 for sats >88% 08/01/20: Overall prognosis here is very very guarded to poor. Will consider proning patient later today if not able to wean FiO2 any further this afternoon. Per CM, wants to come see patient which is very reasonable. Will continue steroids despite completing 10 days of this. 07/29/20: Supportive measures. Proning and wean as tolerated. 07/28/20: No new recommendations as of right now. When beds become available will move patient down stairs for closer monitoring. 07/27/20: Difficult situation. Patient appears to be not responding to any therapy. Steroids finished yesterday. Given the degree of inflammation will restart steroids for at least another 72-96 hours. In no improvement will stop. Not much else to do medical therapy [place]. Continue to keep patient net negative. Still remains high risk for intubation and if intubated given his current response to steroids, very high mortality. 07/26/20: No new recs for today. Patient really needs to try to prone as much as possible during the day and sleep prone at night. He remains a high risk for cardiac arrest and intubation. 07/25/20: very high risk for cardiac arrest from hypoxemia, but no available beds in ICU. Given COVID status, ideally would not like to use bipap but may have to in the event of continued desats. While proning does better and does not need the mask along with HFNC. Encourage to prone as long as possible. 1. Continue steroids for 10 days. 2. Continue Remdesivir. Not a candidate for Convalescent Plasma 3. Please ask patient prone as tolerated during the day and sleep prone at night. Currently doing and tolerating 4. Agree with daily lasix but will need labs to monitor renal function and electrolytes. Needs labs for today. 5. Guarded prognosis to poor now with increasing oxygen requirement. May require intubation and high risk for cardiac arrest. CCT 31 Subjective Date of service: 08/18/20 Principal diagnosis: Acute respiratory failure with hypoxia, Covid pneumonia Interval history: Patient had cardiac arrest yesterday while proned. ROSC achieved about 4 minutes after patient was flipped supine. Post arrest ABH showed hypercapnea, may have been from ET tube obstruction. Repeat ABG after 1.5 hours supine showed much improvement in CO2 and PaO2. Back on sedation now as he had hypertension, tachycardia and agitation last night. Objective Vital Signs - 12hr 08/17/20 08/17/20 08/17/20 23:00 23:15 23:27 Temperature Pulse Rate 115 H 113 H 111 H Pulse Rate [ From Monitor] Respiratory 30 H 30 H 31 H Rate Blood Pressure 95/51 104/58 91/55 O2 Sat by Pulse 100 100 100 Oximetry 08/17/20 08/17/20 08/17/20 23:30 23:45 23:52 Temperature 100.5 F H Pulse Rate 110 H 109 H Pulse Rate [ From Monitor] Respiratory 30 H 30 H Rate Blood Pressure 90/60 95/56 O2 Sat by Pulse 100 100 Oximetry 08/18/20 08/18/20 08/18/20 00:00 00:15 00:30 Temperature Pulse Rate 105 H 102 H 101 H Pulse Rate [ 102 H From Monitor] Respiratory 30 H 30 H 30 H Rate Blood Pressure 98/57 102/56 104/58 O2 Sat by Pulse 100 100 100 Oximetry 08/18/20 08/18/20 08/18/20 00:45 01:00 01:15 Temperature Pulse Rate 102 H 101 H 100 H Pulse Rate [ From Monitor] Respiratory 30 H 30 H 26 H Rate Blood Pressure 101/59 113/62 115/58 O2 Sat by Pulse 100 100 100 Oximetry 08/18/20 08/18/20 08/18/20 01:30 01:45 02:00 Temperature Pulse Rate 103 H 99 H 107 H Pulse Rate [ From Monitor] Respiratory 30 H 30 H 30 H Rate Blood Pressure 108/62 113/65 116/63 O2 Sat by Pulse 100 100 100 Oximetry 08/18/20 08/18/20 08/18/20 02:15 02:31 02:45 Temperature Pulse Rate 98 H 173 H 100 H Pulse Rate [ From Monitor] Respiratory 30 H 29 H 30 H Rate Blood Pressure 104/65 110/62 109/61 O2 Sat by Pulse 100 100 100 Oximetry 08/18/20 08/18/20 08/18/20 03:00 03:15 03:30 Temperature Pulse Rate 102 H 102 H 99 H Pulse Rate [ From Monitor] Respiratory 29 H 29 H 29 H Rate Blood Pressure 104/62 111/65 114/69 O2 Sat by Pulse 100 100 100 Oximetry 08/18/20 08/18/20 08/18/20 03:45 04:00 04:15 Temperature 99.0 F Pulse Rate 99 H 80 95 H Pulse Rate [ 96 H From Monitor] Respiratory 30 H 30 H 30 H Rate Blood Pressure 114/68 107/64 110/64 O2 Sat by Pulse 100 100 100 Oximetry 08/18/20 08/18/20 08/18/20 04:16 04:30 04:45 Temperature Pulse Rate 98 H 97 H 95 H Pulse Rate [ From Monitor] Respiratory 30 H 30 H Rate Blood Pressure 110/64 109/70 107/63 O2 Sat by Pulse 100 100 100 Oximetry 08/18/20 08/18/20 08/18/20 05:00 05:15 05:30 Temperature Pulse Rate 91 H 95 H 95 H Pulse Rate [ From Monitor] Respiratory 29 H 30 H 30 H Rate Blood Pressure 111/64 111/64 117/70 O2 Sat by Pulse 97 96 93 Oximetry 08/18/20 08/18/20 08/18/20 05:45 06:00 06:15 Temperature Pulse Rate 92 H 95 H 95 H Pulse Rate [ From Monitor] Respiratory 30 H 31 H 30 H Rate Blood Pressure 115/66 114/69 117/63 O2 Sat by Pulse 92 94 96 Oximetry 08/18/20 08/18/20 08/18/20 06:30 06:45 07:00 Temperature Pulse Rate 95 H 90 93 H Pulse Rate [ From Monitor] Respiratory 30 H 30 H 30 H Rate Blood Pressure 107/64 107/65 105/66 O2 Sat by Pulse 97 94 95 Oximetry 08/18/20 08/18/20 08/18/20 07:15 07:30 07:45 Temperature Pulse Rate 91 H 91 H 92 H Pulse Rate [ From Monitor] Respiratory 30 H 30 H 31 H Rate Blood Pressure 111/65 117/66 134/73 O2 Sat by Pulse 97 97 97 Oximetry 08/18/20 08/18/20 08/18/20 08:00 08:15 08:30 Temperature Pulse Rate 90 90 90 Pulse Rate [ From Monitor] Respiratory 30 H 31 H 9 L Rate Blood Pressure 117/64 115/62 114/61 O2 Sat by Pulse 93 93 91 Oximetry 08/18/20 08/18/20 08/18/20 08:45 09:00 09:15 Temperature Pulse Rate 92 H 94 H 93 H Pulse Rate [ From Monitor] Respiratory 14 23 14 Rate Blood Pressure 112/63 101/57 111/65 O2 Sat by Pulse 91 91 93 Oximetry Constitutional: other (orally intubated on vent) Eyes: non-icteric ENT: oropharynx moist Neck: supple Ascultation: Bilateral: diminished breath sounds, rhonchi, other (coarse BS bilaterally) Cardiovascular: regular rate and rhythm, other (tachycardia) Gastrointestinal: normoactive bowel sounds, soft, non-tender, non-distended Integumentary: normal Extremities: no cyanosis Neurologic: other (sedated) Psychiatric: other (sedated) CBC and BMP: 08/17/20 15:55 08/17/20 15:55 ABG, PT/INR, D-dimer: ABG ABG pH 7.546 (7.320-7.450) H 08/18/20 03:08 POC ABG pCO2 52.8 mmHg (32.0-48.0) H 08/18/20 03:08 POC ABG pO2 239.0 mmHg (83-108) H 08/18/20 03:08 POC ABG HCO3 44.7 08/18/20 03:08 PT/INR, D-dimer PT 13.7 Sec. (12.2-14.9) 07/18/20 04:31 INR 1.06 (0.87-1.13) 07/18/20 04:31 D-Dimer 5413.39 ng/mlDDU (0-234) H 08/12/20 08:32 Abnormal lab findings: Abnormal Labs 07/17/20 07/17/20 07/17/20 17:30 17:30 22:48 WBC RBC Hgb Hct MCV MCH MCHC 35 H RDW Plt Count Lymph % (Auto) 10.5 L Lymph # (Auto) 0.7 L Seg Neutrophils % 85.3 H Lymphocytes % (Manual) Seg Neutrophils # Seg Neutrophils # Man Lymphocytes # (Manual) D-Dimer 314.21 H ABG pH POC ABG pCO2 POC ABG pO2 ABG Hemoglobin ABG Oxyhemoglobin ABG Sodium ABG Potassium ABG Chloride ABG Glucose Carboxyhemoglobin Sodium Potassium Chloride Carbon Dioxide BUN 1 L Creatinine Glucose 154 H POC Glucose Calcium Magnesium Ferritin Alkaline Phosphatase Lactate Dehydrogenase Total Creatine Kinase CK-MB (CK-2) C-Reactive Protein Total Protein Albumin Triglycerides Arterial Blood Glucose Arterial Blood Ionized Calcium Coronavirus (PCR) SARS-CoV-2 IgG Ab 07/17/20 07/17/20 07/18/20 22:48 22:48 04:31 WBC RBC Hgb Hct MCV MCH 33 H MCHC 35 H RDW 13.1 L Plt Count Lymph % (Auto) Lymph # (Auto) Seg Neutrophils % Lymphocytes % (Manual) 5.0 L Seg Neutrophils # Seg Neutrophils # Man 8.1 H Lymphocytes # (Manual) 0.4 L D-Dimer ABG pH POC ABG pCO2 POC ABG pO2 ABG Hemoglobin ABG Oxyhemoglobin ABG Sodium ABG Potassium ABG Chloride ABG Glucose Carboxyhemoglobin Sodium Potassium Chloride Carbon Dioxide BUN Creatinine Glucose 124 H POC Glucose Calcium Magnesium Ferritin 889.3 H Alkaline Phosphatase Lactate Dehydrogenase 832 H Total Creatine Kinase CK-MB (CK-2) C-Reactive Protein 17.70 H Total Protein Albumin Triglycerides Arterial Blood Glucose Arterial Blood Ionized Calcium Coronavirus (PCR) SARS-CoV-2 IgG Ab 07/18/20 07/18/20 07/18/20 04:31 08:50 18:48 WBC RBC Hgb Hct MCV MCH MCHC RDW Plt Count Lymph % (Auto) Lymph # (Auto) Seg Neutrophils % Lymphocytes % (Manual) Seg Neutrophils # Seg Neutrophils # Man Lymphocytes # (Manual) D-Dimer 275.27 H ABG pH POC ABG pCO2 POC ABG pO2 ABG Hemoglobin ABG Oxyhemoglobin ABG Sodium ABG Potassium ABG Chloride ABG Glucose Carboxyhemoglobin Sodium Potassium Chloride Carbon Dioxide 31 H D BUN 23 H Creatinine Glucose 143 H POC Glucose Calcium Magnesium Ferritin Alkaline Phosphatase Lactate Dehydrogenase Total Creatine Kinase CK-MB (CK-2) C-Reactive Protein Total Protein Albumin Triglycerides Arterial Blood Glucose Arterial Blood Ionized Calcium Coronavirus (PCR) Positive A SARS-CoV-2 IgG Ab 07/18/20 07/18/20 07/20/20 18:48 18:48 08:56 WBC RBC Hgb Hct MCV MCH MCHC RDW Plt Count Lymph % (Auto) Lymph # (Auto) Seg Neutrophils % Lymphocytes % (Manual) Seg Neutrophils # Seg Neutrophils # Man Lymphocytes # (Manual) D-Dimer ABG pH POC ABG pCO2 POC ABG pO2 ABG Hemoglobin ABG Oxyhemoglobin ABG Sodium ABG Potassium ABG Chloride ABG Glucose Carboxyhemoglobin Sodium Potassium Chloride Carbon Dioxide BUN 22 H Creatinine Glucose 219 H POC Glucose Calcium Magnesium Ferritin 1164.0 H Alkaline Phosphatase Lactate Dehydrogenase 560 H 739 H Total Creatine Kinase CK-MB (CK-2) C-Reactive Protein 18.00 H 17.50 H Total Protein Albumin 3.0 L Triglycerides Arterial Blood Glucose Arterial Blood Ionized Calcium Coronavirus (PCR) SARS-CoV-2 IgG Ab 07/20/20 07/20/20 07/21/20 08:56 08:56 05:24 WBC RBC Hgb Hct MCV MCH MCHC RDW Plt Count Lymph % (Auto) Lymph # (Auto) Seg Neutrophils % Lymphocytes % (Manual) Seg Neutrophils # Seg Neutrophils # Man Lymphocytes # (Manual) D-Dimer 9523.70 H ABG pH POC ABG pCO2 POC ABG pO2 ABG Hemoglobin ABG Oxyhemoglobin ABG Sodium ABG Potassium ABG Chloride ABG Glucose Carboxyhemoglobin Sodium Potassium Chloride Carbon Dioxide BUN Creatinine Glucose POC Glucose Calcium Magnesium Ferritin 1581.0 H Alkaline Phosphatase Lactate Dehydrogenase Total Creatine Kinase CK-MB (CK-2) C-Reactive Protein Total Protein Albumin Triglycerides Arterial Blood Glucose Arterial Blood Ionized Calcium Coronavirus (PCR) SARS-CoV-2 IgG Ab Reactive A 07/22/20 07/24/20 07/26/20 04:31 13:26 10:07 WBC RBC Hgb Hct MCV MCH MCHC RDW Plt Count Lymph % (Auto) Lymph # (Auto) Seg Neutrophils % Lymphocytes % (Manual) Seg Neutrophils # Seg Neutrophils # Man Lymphocytes # (Manual) D-Dimer > 67506 H ABG pH POC ABG pCO2 POC ABG pO2 ABG Hemoglobin ABG Oxyhemoglobin ABG Sodium ABG Potassium ABG Chloride ABG Glucose Carboxyhemoglobin Sodium 146 H Potassium Chloride Carbon Dioxide 32 H BUN 28 H 26 H Creatinine Glucose 144 H 116 H POC Glucose Calcium 8.3 L Magnesium Ferritin Alkaline Phosphatase Lactate Dehydrogenase Total Creatine Kinase CK-MB (CK-2) C-Reactive Protein Total Protein Albumin 3.3 L Triglycerides Arterial Blood Glucose Arterial Blood Ionized Calcium Coronavirus (PCR) SARS-CoV-2 IgG Ab 07/26/20 07/26/20 07/27/20 10:07 10:07 19:45 WBC RBC Hgb Hct MCV MCH MCHC RDW Plt Count Lymph % (Auto) Lymph # (Auto) Seg Neutrophils % Lymphocytes % (Manual) Seg Neutrophils # Seg Neutrophils # Man Lymphocytes # (Manual) D-Dimer ABG pH POC ABG pCO2 POC ABG pO2 ABG Hemoglobin ABG Oxyhemoglobin ABG Sodium ABG Potassium ABG Chloride ABG Glucose Carboxyhemoglobin Sodium Potassium Chloride 97.4 L Carbon Dioxide 33 H BUN 27 H Creatinine Glucose 175 H POC Glucose Calcium Magnesium Ferritin 1079.0 H Alkaline Phosphatase Lactate Dehydrogenase 708 H Total Creatine Kinase CK-MB (CK-2) C-Reactive Protein 6.10 H Total Protein Albumin Triglycerides Arterial Blood Glucose Arterial Blood Ionized Calcium Coronavirus (PCR) SARS-CoV-2 IgG Ab 07/29/20 07/30/20 07/30/20 02:09 10:33 11:54 WBC RBC Hgb Hct MCV MCH MCHC RDW Plt Count Lymph % (Auto) Lymph # (Auto) Seg Neutrophils % Lymphocytes % (Manual) Seg Neutrophils # Seg Neutrophils # Man Lymphocytes # (Manual) D-Dimer ABG pH POC ABG pCO2 POC ABG pO2 ABG Hemoglobin ABG Oxyhemoglobin ABG Sodium ABG Potassium ABG Chloride ABG Glucose Carboxyhemoglobin Sodium Potassium Chloride Carbon Dioxide BUN Creatinine Glucose POC Glucose 183 H Calcium Magnesium 3.00 H Ferritin Alkaline Phosphatase Lactate Dehydrogenase Total Creatine Kinase 174 H CK-MB (CK-2) 4.5 H C-Reactive Protein Total Protein Albumin Triglycerides Arterial Blood Glucose Arterial Blood Ionized Calcium Coronavirus (PCR) SARS-CoV-2 IgG Ab 07/30/20 07/30/20 07/31/20 17:30 23:08 11:04 WBC RBC Hgb Hct MCV MCH MCHC RDW Plt Count Lymph % (Auto) Lymph # (Auto) Seg Neutrophils % Lymphocytes % (Manual) Seg Neutrophils # Seg Neutrophils # Man Lymphocytes # (Manual) D-Dimer ABG pH POC ABG pCO2 POC ABG pO2 ABG Hemoglobin ABG Oxyhemoglobin ABG Sodium ABG Potassium ABG Chloride ABG Glucose Carboxyhemoglobin Sodium 151 H D Potassium Chloride 109.2 H Carbon Dioxide 32 H BUN 48 H Creatinine Glucose 165 H POC Glucose 199 H 194 H Calcium Magnesium Ferritin Alkaline Phosphatase 168 H Lactate Dehydrogenase Total Creatine Kinase CK-MB (CK-2) C-Reactive Protein Total Protein Albumin 3.1 L Triglycerides Arterial Blood Glucose Arterial Blood Ionized Calcium Coronavirus (PCR) SARS-CoV-2 IgG Ab 07/31/20 07/31/20 07/31/20 11:18 11:23 17:47 WBC RBC Hgb Hct MCV MCH MCHC RDW Plt Count Lymph % (Auto) Lymph # (Auto) Seg Neutrophils % Lymphocytes % (Manual) Seg Neutrophils # Seg Neutrophils # Man Lymphocytes # (Manual) D-Dimer ABG pH POC ABG pCO2 56.6 H POC ABG pO2 73.1 L ABG Hemoglobin ABG Oxyhemoglobin 92.1 L ABG Sodium ABG Potassium ABG Chloride 108.0 H ABG Glucose 169 H Carboxyhemoglobin Sodium Potassium Chloride Carbon Dioxide BUN Creatinine Glucose POC Glucose 156 H 169 H Calcium Magnesium Ferritin Alkaline Phosphatase Lactate Dehydrogenase Total Creatine Kinase CK-MB (CK-2) C-Reactive Protein Total Protein Albumin Triglycerides Arterial Blood Glucose 169 H Arterial Blood Ionized Calcium Coronavirus (PCR) SARS-CoV-2 IgG Ab 07/31/20 07/31/20 07/31/20 20:58 23:18 23:55 WBC 19.8 H RBC Hgb Hct MCV 95 H MCH MCHC RDW 13.0 L Plt Count Lymph % (Auto) Lymph # (Auto) Seg Neutrophils % Lymphocytes % (Manual) Seg Neutrophils # Seg Neutrophils # Man Lymphocytes # (Manual) D-Dimer ABG pH POC ABG pCO2 POC ABG pO2 ABG Hemoglobin ABG Oxyhemoglobin ABG Sodium ABG Potassium ABG Chloride ABG Glucose Carboxyhemoglobin Sodium Potassium Chloride Carbon Dioxide BUN Creatinine Glucose POC Glucose 293 H 211 H Calcium Magnesium Ferritin Alkaline Phosphatase Lactate Dehydrogenase Total Creatine Kinase CK-MB (CK-2) C-Reactive Protein Total Protein Albumin Triglycerides Arterial Blood Glucose Arterial Blood Ionized Calcium Coronavirus (PCR) SARS-CoV-2 IgG Ab 08/01/20 08/01/20 08/01/20 03:47 08:30 12:27 WBC RBC Hgb Hct MCV MCH MCHC RDW Plt Count Lymph % (Auto) Lymph # (Auto) Seg Neutrophils % Lymphocytes % (Manual) Seg Neutrophils # Seg Neutrophils # Man Lymphocytes # (Manual) D-Dimer ABG pH POC ABG pCO2 49.8 H POC ABG pO2 123.4 H ABG Hemoglobin ABG Oxyhemoglobin ABG Sodium ABG Potassium 4.6 H ABG Chloride 111.0 H ABG Glucose 130 H Carboxyhemoglobin Sodium 154 H Potassium Chloride 115.1 H Carbon Dioxide 32 H BUN 49 H Creatinine Glucose 492 H POC Glucose 161 H Calcium 7.2 L D Magnesium Ferritin Alkaline Phosphatase Lactate Dehydrogenase Total Creatine Kinase CK-MB (CK-2) C-Reactive Protein Total Protein Albumin Triglycerides Arterial Blood Glucose 130 H Arterial Blood Ionized Calcium 4.5 L Coronavirus (PCR) SARS-CoV-2 IgG Ab 08/01/20 08/01/20 08/02/20 16:55 23:06 05:00 WBC RBC Hgb Hct MCV MCH MCHC RDW Plt Count Lymph % (Auto) Lymph # (Auto) Seg Neutrophils % Lymphocytes % (Manual) Seg Neutrophils # Seg Neutrophils # Man Lymphocytes # (Manual) D-Dimer ABG pH POC ABG pCO2 52.5 H POC ABG pO2 69.8 L ABG Hemoglobin ABG Oxyhemoglobin ABG Sodium 147.2 H ABG Potassium ABG Chloride 110.0 H ABG Glucose 177 H Carboxyhemoglobin Sodium Potassium Chloride Carbon Dioxide BUN Creatinine Glucose POC Glucose 195 H 162 H Calcium Magnesium Ferritin Alkaline Phosphatase Lactate Dehydrogenase Total Creatine Kinase CK-MB (CK-2) C-Reactive Protein Total Protein Albumin Triglycerides Arterial Blood Glucose 177 H Arterial Blood Ionized Calcium Coronavirus (PCR) SARS-CoV-2 IgG Ab 08/02/20 08/02/20 08/02/20 05:01 12:05 17:13 WBC RBC Hgb Hct MCV MCH MCHC RDW Plt Count Lymph % (Auto) Lymph # (Auto) Seg Neutrophils % Lymphocytes % (Manual) Seg Neutrophils # Seg Neutrophils # Man Lymphocytes # (Manual) D-Dimer ABG pH POC ABG pCO2 POC ABG pO2 ABG Hemoglobin ABG Oxyhemoglobin ABG Sodium ABG Potassium ABG Chloride ABG Glucose Carboxyhemoglobin Sodium Potassium Chloride Carbon Dioxide BUN Creatinine Glucose POC Glucose 146 H 166 H 209 H Calcium Magnesium Ferritin Alkaline Phosphatase Lactate Dehydrogenase Total Creatine Kinase CK-MB (CK-2) C-Reactive Protein Total Protein Albumin Triglycerides Arterial Blood Glucose Arterial Blood Ionized Calcium Coronavirus (PCR) SARS-CoV-2 IgG Ab 08/02/20 08/03/20 08/03/20 23:26 04:06 04:34 WBC RBC Hgb Hct MCV MCH MCHC RDW Plt Count Lymph % (Auto) Lymph # (Auto) Seg Neutrophils % Lymphocytes % (Manual) Seg Neutrophils # Seg Neutrophils # Man Lymphocytes # (Manual) D-Dimer ABG pH POC ABG pCO2 55.6 H POC ABG pO2 66.1 L ABG Hemoglobin 11.9 L ABG Oxyhemoglobin 91.1 L ABG Sodium 145.7 H ABG Potassium 4.8 H ABG Chloride 111.0 H ABG Glucose 195 H Carboxyhemoglobin Sodium Potassium Chloride Carbon Dioxide BUN Creatinine Glucose POC Glucose 157 H Calcium Magnesium Ferritin Alkaline Phosphatase Lactate Dehydrogenase Total Creatine Kinase CK-MB (CK-2) C-Reactive Protein Total Protein Albumin Triglycerides 207 H Arterial Blood Glucose 195 H Arterial Blood Ionized Calcium Coronavirus (PCR) SARS-CoV-2 IgG Ab 08/03/20 08/03/20 08/03/20 05:00 11:55 17:15 WBC RBC Hgb Hct MCV MCH MCHC RDW Plt Count Lymph % (Auto) Lymph # (Auto) Seg Neutrophils % Lymphocytes % (Manual) Seg Neutrophils # Seg Neutrophils # Man Lymphocytes # (Manual) D-Dimer ABG pH POC ABG pCO2 POC ABG pO2 ABG Hemoglobin ABG Oxyhemoglobin ABG Sodium ABG Potassium ABG Chloride ABG Glucose Carboxyhemoglobin Sodium Potassium Chloride Carbon Dioxide BUN Creatinine Glucose POC Glucose 179 H 173 H 217 H Calcium Magnesium Ferritin Alkaline Phosphatase Lactate Dehydrogenase Total Creatine Kinase CK-MB (CK-2) C-Reactive Protein Total Protein Albumin Triglycerides Arterial Blood Glucose Arterial Blood Ionized Calcium Coronavirus (PCR) SARS-CoV-2 IgG Ab 08/03/20 08/04/20 08/04/20 23:01 03:59 05:30 WBC RBC Hgb Hct MCV MCH MCHC RDW Plt Count Lymph % (Auto) Lymph # (Auto) Seg Neutrophils % Lymphocytes % (Manual) Seg Neutrophils # Seg Neutrophils # Man Lymphocytes # (Manual) D-Dimer ABG pH POC ABG pCO2 54.6 H POC ABG pO2 66.2 L ABG Hemoglobin 10.8 L ABG Oxyhemoglobin 91.5 L ABG Sodium ABG Potassium ABG Chloride 110.0 H ABG Glucose 201 H Carboxyhemoglobin Sodium Potassium Chloride Carbon Dioxide BUN Creatinine Glucose POC Glucose 222 H 137 H Calcium Magnesium Ferritin Alkaline Phosphatase Lactate Dehydrogenase Total Creatine Kinase CK-MB (CK-2) C-Reactive Protein Total Protein Albumin Triglycerides Arterial Blood Glucose 201 H Arterial Blood Ionized Calcium Coronavirus (PCR) SARS-CoV-2 IgG Ab 08/04/20 08/04/20 08/04/20 06:57 11:50 17:29 WBC RBC Hgb Hct MCV MCH MCHC RDW Plt Count Lymph % (Auto) Lymph # (Auto) Seg Neutrophils % Lymphocytes % (Manual) Seg Neutrophils # Seg Neutrophils # Man Lymphocytes # (Manual) D-Dimer ABG pH POC ABG pCO2 POC ABG pO2 ABG Hemoglobin ABG Oxyhemoglobin ABG Sodium ABG Potassium ABG Chloride ABG Glucose Carboxyhemoglobin Sodium 151 H Potassium Chloride 111.3 H Carbon Dioxide 36 H BUN 32 H Creatinine Glucose 160 H POC Glucose 158 H 180 H Calcium 8.2 L Magnesium 2.60 H Ferritin Alkaline Phosphatase Lactate Dehydrogenase Total Creatine Kinase CK-MB (CK-2) C-Reactive Protein Total Protein Albumin Triglycerides Arterial Blood Glucose Arterial Blood Ionized Calcium Coronavirus (PCR) SARS-CoV-2 IgG Ab 08/04/20 08/05/20 08/05/20 23:01 04:49 05:11 WBC RBC Hgb Hct MCV MCH MCHC RDW Plt Count Lymph % (Auto) Lymph # (Auto) Seg Neutrophils % Lymphocytes % (Manual) Seg Neutrophils # Seg Neutrophils # Man Lymphocytes # (Manual) D-Dimer ABG pH POC ABG pCO2 56.7 H POC ABG pO2 80.6 L ABG Hemoglobin 10.9 L ABG Oxyhemoglobin ABG Sodium 145.9 H ABG Potassium ABG Chloride 109.0 H ABG Glucose 160 H Carboxyhemoglobin Sodium Potassium Chloride Carbon Dioxide BUN Creatinine Glucose POC Glucose 160 H 134 H Calcium Magnesium Ferritin Alkaline Phosphatase Lactate Dehydrogenase Total Creatine Kinase CK-MB (CK-2) C-Reactive Protein Total Protein Albumin Triglycerides Arterial Blood Glucose 160 H Arterial Blood Ionized Calcium Coronavirus (PCR) SARS-CoV-2 IgG Ab 08/05/20 08/05/20 08/05/20 11:40 16:54 23:29 WBC RBC Hgb Hct MCV MCH MCHC RDW Plt Count Lymph % (Auto) Lymph # (Auto) Seg Neutrophils % Lymphocytes % (Manual) Seg Neutrophils # Seg Neutrophils # Man Lymphocytes # (Manual) D-Dimer ABG pH POC ABG pCO2 POC ABG pO2 ABG Hemoglobin ABG Oxyhemoglobin ABG Sodium ABG Potassium ABG Chloride ABG Glucose Carboxyhemoglobin Sodium Potassium Chloride Carbon Dioxide BUN Creatinine Glucose POC Glucose 137 H 243 H 154 H Calcium Magnesium Ferritin Alkaline Phosphatase Lactate Dehydrogenase Total Creatine Kinase CK-MB (CK-2) C-Reactive Protein Total Protein Albumin Triglycerides Arterial Blood Glucose Arterial Blood Ionized Calcium Coronavirus (PCR) SARS-CoV-2 IgG Ab 08/06/20 08/06/20 08/06/20 05:24 06:00 08:59 WBC 14.1 H RBC Hgb 11.5 L Hct MCV 98 H MCH MCHC RDW Plt Count 107 L Lymph % (Auto) Lymph # (Auto) Seg Neutrophils % Lymphocytes % (Manual) Seg Neutrophils # Seg Neutrophils # Man Lymphocytes # (Manual) D-Dimer ABG pH POC ABG pCO2 58.9 H POC ABG pO2 53.0 L ABG Hemoglobin ABG Oxyhemoglobin 85.7 L ABG Sodium 148.4 H ABG Potassium 4.7 H ABG Chloride 109.0 H ABG Glucose 125 H Carboxyhemoglobin Sodium Potassium Chloride Carbon Dioxide BUN Creatinine Glucose POC Glucose 122 H Calcium Magnesium Ferritin Alkaline Phosphatase Lactate Dehydrogenase Total Creatine Kinase CK-MB (CK-2) C-Reactive Protein Total Protein Albumin Triglycerides Arterial Blood Glucose 125 H Arterial Blood Ionized Calcium Coronavirus (PCR) SARS-CoV-2 IgG Ab 08/06/20 08/06/20 08/06/20 08:59 12:34 17:43 WBC RBC Hgb Hct MCV MCH MCHC RDW Plt Count Lymph % (Auto) Lymph # (Auto) Seg Neutrophils % Lymphocytes % (Manual) Seg Neutrophils # Seg Neutrophils # Man Lymphocytes # (Manual) D-Dimer ABG pH POC ABG pCO2 POC ABG pO2 ABG Hemoglobin ABG Oxyhemoglobin ABG Sodium ABG Potassium ABG Chloride ABG Glucose Carboxyhemoglobin Sodium 151 H Potassium Chloride 110.7 H Carbon Dioxide 36 H BUN 29 H Creatinine 0.7 L Glucose 194 H POC Glucose 193 H 204 H Calcium Magnesium Ferritin Alkaline Phosphatase Lactate Dehydrogenase Total Creatine Kinase CK-MB (CK-2) C-Reactive Protein Total Protein Albumin Triglycerides Arterial Blood Glucose Arterial Blood Ionized Calcium Coronavirus (PCR) SARS-CoV-2 IgG Ab 08/06/20 08/07/20 08/07/20 23:25 04:00 04:00 WBC RBC 3.59 L Hgb 11.3 L Hct 35.0 L MCV 97 H MCH MCHC RDW Plt Count 103 L Lymph % (Auto) 11.5 L Lymph # (Auto) Seg Neutrophils % 82.9 H Lymphocytes % (Manual) Seg Neutrophils # 9.0 H Seg Neutrophils # Man Lymphocytes # (Manual) D-Dimer ABG pH POC ABG pCO2 POC ABG pO2 ABG Hemoglobin ABG Oxyhemoglobin ABG Sodium ABG Potassium ABG Chloride ABG Glucose Carboxyhemoglobin Sodium 151 H Potassium Chloride 109.6 H Carbon Dioxide 34 H BUN 29 H Creatinine 0.5 L Glucose 134 H POC Glucose 150 H Calcium Magnesium Ferritin Alkaline Phosphatase Lactate Dehydrogenase Total Creatine Kinase CK-MB (CK-2) C-Reactive Protein Total Protein 5.4 L Albumin 2.8 L Triglycerides Arterial Blood Glucose Arterial Blood Ionized Calcium Coronavirus (PCR) SARS-CoV-2 IgG Ab 08/07/20 08/07/20 08/07/20 04:00 04:55 05:16 WBC RBC Hgb Hct MCV MCH MCHC RDW Plt Count Lymph % (Auto) Lymph # (Auto) Seg Neutrophils % Lymphocytes % (Manual) Seg Neutrophils # Seg Neutrophils # Man Lymphocytes # (Manual) D-Dimer ABG pH POC ABG pCO2 62.8 H POC ABG pO2 75.0 L ABG Hemoglobin 11.9 L ABG Oxyhemoglobin 93.2 L ABG Sodium 148.2 H ABG Potassium ABG Chloride 108.0 H ABG Glucose 150 H Carboxyhemoglobin Sodium Potassium Chloride Carbon Dioxide BUN Creatinine Glucose POC Glucose 116 H Calcium Magnesium Ferritin Alkaline Phosphatase Lactate Dehydrogenase Total Creatine Kinase CK-MB (CK-2) C-Reactive Protein Total Protein Albumin Triglycerides 250 H Arterial Blood Glucose 150 H Arterial Blood Ionized Calcium Coronavirus (PCR) SARS-CoV-2 IgG Ab 08/07/20 08/07/20 08/07/20 12:36 17:46 23:09 WBC RBC Hgb Hct MCV MCH MCHC RDW Plt Count Lymph % (Auto) Lymph # (Auto) Seg Neutrophils % Lymphocytes % (Manual) Seg Neutrophils # Seg Neutrophils # Man Lymphocytes # (Manual) D-Dimer ABG pH POC ABG pCO2 POC ABG pO2 ABG Hemoglobin ABG Oxyhemoglobin ABG Sodium ABG Potassium ABG Chloride ABG Glucose Carboxyhemoglobin Sodium Potassium Chloride Carbon Dioxide BUN Creatinine Glucose POC Glucose 160 H 168 H 111 H Calcium Magnesium Ferritin Alkaline Phosphatase Lactate Dehydrogenase Total Creatine Kinase CK-MB (CK-2) C-Reactive Protein Total Protein Albumin Triglycerides Arterial Blood Glucose Arterial Blood Ionized Calcium Coronavirus (PCR) SARS-CoV-2 IgG Ab 08/08/20 08/08/20 08/08/20 04:41 05:13 11:57 WBC RBC Hgb Hct MCV MCH MCHC RDW Plt Count Lymph % (Auto) Lymph # (Auto) Seg Neutrophils % Lymphocytes % (Manual) Seg Neutrophils # Seg Neutrophils # Man Lymphocytes # (Manual) D-Dimer ABG pH POC ABG pCO2 63.1 H POC ABG pO2 70.7 L ABG Hemoglobin 11.5 L ABG Oxyhemoglobin 91.0 L ABG Sodium 148.5 H ABG Potassium ABG Chloride 108.0 H ABG Glucose 102 H Carboxyhemoglobin Sodium Potassium Chloride Carbon Dioxide BUN Creatinine Glucose POC Glucose 122 H 225 H Calcium Magnesium Ferritin Alkaline Phosphatase Lactate Dehydrogenase Total Creatine Kinase CK-MB (CK-2) C-Reactive Protein Total Protein Albumin Triglycerides Arterial Blood Glucose 102 H Arterial Blood Ionized Calcium Coronavirus (PCR) SARS-CoV-2 IgG Ab 08/08/20 08/08/20 08/09/20 17:16 23:06 05:22 WBC RBC Hgb Hct MCV MCH MCHC RDW Plt Count Lymph % (Auto) Lymph # (Auto) Seg Neutrophils % Lymphocytes % (Manual) Seg Neutrophils # Seg Neutrophils # Man Lymphocytes # (Manual) D-Dimer ABG pH POC ABG pCO2 POC ABG pO2 ABG Hemoglobin ABG Oxyhemoglobin ABG Sodium ABG Potassium ABG Chloride ABG Glucose Carboxyhemoglobin Sodium Potassium Chloride Carbon Dioxide BUN Creatinine Glucose POC Glucose 188 H 129 H 112 H Calcium Magnesium Ferritin Alkaline Phosphatase Lactate Dehydrogenase Total Creatine Kinase CK-MB (CK-2) C-Reactive Protein Total Protein Albumin Triglycerides Arterial Blood Glucose Arterial Blood Ionized Calcium Coronavirus (PCR) SARS-CoV-2 IgG Ab 08/09/20 08/09/20 08/09/20 05:44 06:49 11:56 WBC RBC Hgb Hct MCV MCH MCHC RDW Plt Count Lymph % (Auto) Lymph # (Auto) Seg Neutrophils % Lymphocytes % (Manual) Seg Neutrophils # Seg Neutrophils # Man Lymphocytes # (Manual) D-Dimer ABG pH POC ABG pCO2 67.9 H POC ABG pO2 73.4 L ABG Hemoglobin 10.8 L ABG Oxyhemoglobin 92.7 L ABG Sodium 146.4 H ABG Potassium ABG Chloride ABG Glucose 165 H Carboxyhemoglobin Sodium 151 H Potassium Chloride 108.8 H Carbon Dioxide 39 H BUN 32 H Creatinine 0.6 L Glucose 189 H POC Glucose 217 H Calcium 8.1 L Magnesium Ferritin Alkaline Phosphatase Lactate Dehydrogenase Total Creatine Kinase CK-MB (CK-2) C-Reactive Protein Total Protein Albumin Triglycerides Arterial Blood Glucose 165 H Arterial Blood Ionized Calcium Coronavirus (PCR) SARS-CoV-2 IgG Ab 08/09/20 08/09/20 08/10/20 17:01 23:35 05:00 WBC RBC Hgb Hct MCV MCH MCHC RDW Plt Count Lymph % (Auto) Lymph # (Auto) Seg Neutrophils % Lymphocytes % (Manual) Seg Neutrophils # Seg Neutrophils # Man Lymphocytes # (Manual) D-Dimer ABG pH POC ABG pCO2 POC ABG pO2 ABG Hemoglobin ABG Oxyhemoglobin ABG Sodium ABG Potassium ABG Chloride ABG Glucose Carboxyhemoglobin Sodium 125 L D Potassium 3.5 L Chloride 88.7 L Carbon Dioxide 35 H BUN 25 H Creatinine 0.5 L Glucose 465 H POC Glucose 172 H 125 H Calcium 6.3 L D Magnesium Ferritin Alkaline Phosphatase Lactate Dehydrogenase Total Creatine Kinase CK-MB (CK-2) C-Reactive Protein Total Protein Albumin Triglycerides 1175 H Arterial Blood Glucose Arterial Blood Ionized Calcium Coronavirus (PCR) SARS-CoV-2 IgG Ab 08/10/20 08/10/20 08/10/20 05:09 05:24 08:00 WBC RBC Hgb Hct MCV MCH MCHC RDW Plt Count Lymph % (Auto) Lymph # (Auto) Seg Neutrophils % Lymphocytes % (Manual) Seg Neutrophils # Seg Neutrophils # Man Lymphocytes # (Manual) D-Dimer ABG pH 7.306 L POC ABG pCO2 75.1 H POC ABG pO2 76.1 L ABG Hemoglobin 10.7 L ABG Oxyhemoglobin ABG Sodium ABG Potassium ABG Chloride ABG Glucose 177 H Carboxyhemoglobin Sodium 131 L Potassium Chloride 93.0 L Carbon Dioxide 35 H BUN 28 H Creatinine 0.6 L Glucose 433 H POC Glucose 161 H Calcium 6.6 L Magnesium Ferritin Alkaline Phosphatase Lactate Dehydrogenase Total Creatine Kinase CK-MB (CK-2) C-Reactive Protein Total Protein Albumin Triglycerides 869 H Arterial Blood Glucose 177 H Arterial Blood Ionized Calcium Coronavirus (PCR) SARS-CoV-2 IgG Ab 08/10/20 08/10/20 08/10/20 11:15 13:23 13:23 WBC RBC 3.18 L Hgb 10.1 L Hct 31.3 L MCV 98 H MCH MCHC RDW Plt Count 123 L Lymph % (Auto) Lymph # (Auto) Seg Neutrophils % Lymphocytes % (Manual) Seg Neutrophils # Seg Neutrophils # Man Lymphocytes # (Manual) D-Dimer ABG pH POC ABG pCO2 POC ABG pO2 ABG Hemoglobin ABG Oxyhemoglobin ABG Sodium ABG Potassium ABG Chloride ABG Glucose Carboxyhemoglobin Sodium Potassium Chloride Carbon Dioxide 37 H BUN 29 H Creatinine 0.6 L Glucose 313 H POC Glucose 246 H Calcium 7.4 L Magnesium Ferritin Alkaline Phosphatase Lactate Dehydrogenase Total Creatine Kinase CK-MB (CK-2) C-Reactive Protein Total Protein Albumin Triglycerides Arterial Blood Glucose Arterial Blood Ionized Calcium Coronavirus (PCR) SARS-CoV-2 IgG Ab 08/10/20 08/10/20 08/10/20 13:23 16:43 23:20 WBC RBC Hgb Hct MCV MCH MCHC RDW Plt Count Lymph % (Auto) Lymph # (Auto) Seg Neutrophils % Lymphocytes % (Manual) Seg Neutrophils # Seg Neutrophils # Man Lymphocytes # (Manual) D-Dimer ABG pH POC ABG pCO2 POC ABG pO2 ABG Hemoglobin ABG Oxyhemoglobin ABG Sodium ABG Potassium ABG Chloride ABG Glucose Carboxyhemoglobin Sodium Potassium Chloride Carbon Dioxide BUN Creatinine Glucose POC Glucose 238 H 111 H Calcium Magnesium Ferritin Alkaline Phosphatase Lactate Dehydrogenase Total Creatine Kinase CK-MB (CK-2) C-Reactive Protein 22.70 H Total Protein Albumin Triglycerides Arterial Blood Glucose Arterial Blood Ionized Calcium Coronavirus (PCR) SARS-CoV-2 IgG Ab 08/11/20 08/11/20 08/11/20 04:33 05:19 09:00 WBC RBC Hgb Hct MCV MCH MCHC RDW Plt Count Lymph % (Auto) Lymph # (Auto) Seg Neutrophils % Lymphocytes % (Manual) Seg Neutrophils # Seg Neutrophils # Man Lymphocytes # (Manual) D-Dimer ABG pH POC ABG pCO2 66.9 H POC ABG pO2 65.2 L ABG Hemoglobin 10.5 L ABG Oxyhemoglobin 91.7 L ABG Sodium ABG Potassium ABG Chloride ABG Glucose 124 H Carboxyhemoglobin Sodium Potassium Chloride Carbon Dioxide 41 H* BUN 30 H Creatinine 0.5 L Glucose 204 H POC Glucose 106 H Calcium 8.1 L Magnesium Ferritin Alkaline Phosphatase Lactate Dehydrogenase Total Creatine Kinase CK-MB (CK-2) C-Reactive Protein Total Protein Albumin Triglycerides Arterial Blood Glucose 124 H Arterial Blood Ionized Calcium 4.5 L Coronavirus (PCR) SARS-CoV-2 IgG Ab 08/11/20 08/11/20 08/11/20 09:00 12:08 17:01 WBC RBC 3.01 L Hgb 9.6 L Hct 29.2 L MCV 97 H MCH MCHC RDW Plt Count Lymph % (Auto) Lymph # (Auto) Seg Neutrophils % Lymphocytes % (Manual) Seg Neutrophils # Seg Neutrophils # Man Lymphocytes # (Manual) D-Dimer ABG pH POC ABG pCO2 POC ABG pO2 ABG Hemoglobin ABG Oxyhemoglobin ABG Sodium ABG Potassium ABG Chloride ABG Glucose Carboxyhemoglobin Sodium Potassium Chloride Carbon Dioxide BUN Creatinine Glucose POC Glucose 201 H 150 H Calcium Magnesium Ferritin Alkaline Phosphatase Lactate Dehydrogenase Total Creatine Kinase CK-MB (CK-2) C-Reactive Protein Total Protein Albumin Triglycerides Arterial Blood Glucose Arterial Blood Ionized Calcium Coronavirus (PCR) SARS-CoV-2 IgG Ab 08/11/20 08/12/20 08/12/20 23:17 03:31 04:00 WBC RBC 2.98 L Hgb 9.4 L Hct 28.7 L MCV 97 H MCH MCHC RDW Plt Count Lymph % (Auto) Lymph # (Auto) Seg Neutrophils % Lymphocytes % (Manual) Seg Neutrophils # Seg Neutrophils # Man Lymphocytes # (Manual) D-Dimer ABG pH POC ABG pCO2 65.1 H POC ABG pO2 ABG Hemoglobin 9.9 L ABG Oxyhemoglobin ABG Sodium 145.6 H ABG Potassium ABG Chloride ABG Glucose 106 H Carboxyhemoglobin Sodium Potassium Chloride Carbon Dioxide BUN Creatinine Glucose POC Glucose 128 H Calcium Magnesium Ferritin Alkaline Phosphatase Lactate Dehydrogenase Total Creatine Kinase CK-MB (CK-2) C-Reactive Protein Total Protein Albumin Triglycerides Arterial Blood Glucose 106 H Arterial Blood Ionized Calcium Coronavirus (PCR) SARS-CoV-2 IgG Ab 08/12/20 08/12/20 08/12/20 04:00 07:14 08:32 WBC RBC Hgb Hct MCV MCH MCHC RDW Plt Count Lymph % (Auto) Lymph # (Auto) Seg Neutrophils % Lymphocytes % (Manual) Seg Neutrophils # Seg Neutrophils # Man Lymphocytes # (Manual) D-Dimer 5413.39 H ABG pH POC ABG pCO2 POC ABG pO2 ABG Hemoglobin ABG Oxyhemoglobin ABG Sodium ABG Potassium ABG Chloride ABG Glucose Carboxyhemoglobin Sodium 149 H 149 H Potassium Chloride Carbon Dioxide 39 H 39 H BUN 31 H 33 H Creatinine 0.5 L 0.5 L Glucose 173 H POC Glucose Calcium 8.0 L 8.1 L Magnesium Ferritin Alkaline Phosphatase Lactate Dehydrogenase Total Creatine Kinase CK-MB (CK-2) C-Reactive Protein Total Protein Albumin Triglycerides Arterial Blood Glucose Arterial Blood Ionized Calcium Coronavirus (PCR) SARS-CoV-2 IgG Ab 08/12/20 08/12/20 08/12/20 08:32 08:32 12:15 WBC RBC Hgb Hct MCV MCH MCHC RDW Plt Count Lymph % (Auto) Lymph # (Auto) Seg Neutrophils % Lymphocytes % (Manual) Seg Neutrophils # Seg Neutrophils # Man Lymphocytes # (Manual) D-Dimer ABG pH POC ABG pCO2 POC ABG pO2 ABG Hemoglobin ABG Oxyhemoglobin ABG Sodium ABG Potassium ABG Chloride ABG Glucose Carboxyhemoglobin Sodium Potassium Chloride Carbon Dioxide BUN Creatinine Glucose POC Glucose 270 H Calcium Magnesium Ferritin 1401.0 H Alkaline Phosphatase Lactate Dehydrogenase 378 H Total Creatine Kinase CK-MB (CK-2) C-Reactive Protein 19.50 H Total Protein Albumin Triglycerides Arterial Blood Glucose Arterial Blood Ionized Calcium Coronavirus (PCR) SARS-CoV-2 IgG Ab 08/12/20 08/12/20 08/13/20 17:52 23:07 05:13 WBC RBC Hgb Hct MCV MCH MCHC RDW Plt Count Lymph % (Auto) Lymph # (Auto) Seg Neutrophils % Lymphocytes % (Manual) Seg Neutrophils # Seg Neutrophils # Man Lymphocytes # (Manual) D-Dimer ABG pH POC ABG pCO2 POC ABG pO2 ABG Hemoglobin ABG Oxyhemoglobin ABG Sodium ABG Potassium ABG Chloride ABG Glucose Carboxyhemoglobin Sodium Potassium Chloride Carbon Dioxide BUN Creatinine Glucose POC Glucose 178 H 128 H 130 H Calcium Magnesium Ferritin Alkaline Phosphatase Lactate Dehydrogenase Total Creatine Kinase CK-MB (CK-2) C-Reactive Protein Total Protein Albumin Triglycerides Arterial Blood Glucose Arterial Blood Ionized Calcium Coronavirus (PCR) SARS-CoV-2 IgG Ab 08/13/20 08/13/20 08/13/20 06:30 12:08 14:12 WBC RBC Hgb Hct MCV MCH MCHC RDW Plt Count Lymph % (Auto) Lymph # (Auto) Seg Neutrophils % Lymphocytes % (Manual) Seg Neutrophils # Seg Neutrophils # Man Lymphocytes # (Manual) D-Dimer ABG pH 7.288 L POC ABG pCO2 81.8 H POC ABG pO2 ABG Hemoglobin 10.3 L ABG Oxyhemoglobin ABG Sodium 146.7 H ABG Potassium 5.3 H ABG Chloride ABG Glucose 278 H Carboxyhemoglobin Sodium 148 H Potassium Chloride Carbon Dioxide 41 H* BUN 31 H Creatinine 0.5 L Glucose 145 H POC Glucose 205 H Calcium 8.2 L Magnesium Ferritin Alkaline Phosphatase Lactate Dehydrogenase Total Creatine Kinase CK-MB (CK-2) C-Reactive Protein Total Protein Albumin Triglycerides 167 H Arterial Blood Glucose 278 H Arterial Blood Ionized Calcium Coronavirus (PCR) SARS-CoV-2 IgG Ab 08/13/20 08/13/20 08/14/20 17:39 23:23 04:00 WBC RBC Hgb Hct MCV MCH MCHC RDW Plt Count Lymph % (Auto) Lymph # (Auto) Seg Neutrophils % Lymphocytes % (Manual) Seg Neutrophils # Seg Neutrophils # Man Lymphocytes # (Manual) D-Dimer ABG pH 7.318 L POC ABG pCO2 77.2 H POC ABG pO2 82.4 L ABG Hemoglobin 10.2 L ABG Oxyhemoglobin ABG Sodium 147.2 H ABG Potassium 4.6 H ABG Chloride ABG Glucose 212 H Carboxyhemoglobin Sodium Potassium Chloride Carbon Dioxide BUN Creatinine Glucose POC Glucose 195 H 191 H Calcium Magnesium Ferritin Alkaline Phosphatase Lactate Dehydrogenase Total Creatine Kinase CK-MB (CK-2) C-Reactive Protein Total Protein Albumin Triglycerides Arterial Blood Glucose 212 H Arterial Blood Ionized Calcium Coronavirus (PCR) SARS-CoV-2 IgG Ab 08/14/20 08/14/20 08/14/20 05:00 05:13 08:50 WBC RBC 2.67 L Hgb 8.5 L Hct 26.6 L MCV 100 H MCH MCHC RDW Plt Count Lymph % (Auto) Lymph # (Auto) Seg Neutrophils % Lymphocytes % (Manual) Seg Neutrophils # Seg Neutrophils # Man Lymphocytes # (Manual) D-Dimer ABG pH POC ABG pCO2 POC ABG pO2 ABG Hemoglobin ABG Oxyhemoglobin ABG Sodium ABG Potassium ABG Chloride ABG Glucose Carboxyhemoglobin Sodium 151 H Potassium Chloride Carbon Dioxide 43 H* BUN 41 H Creatinine 0.6 L Glucose 195 H POC Glucose 183 H Calcium 7.9 L Magnesium Ferritin Alkaline Phosphatase Lactate Dehydrogenase Total Creatine Kinase CK-MB (CK-2) C-Reactive Protein Total Protein Albumin Triglycerides Arterial Blood Glucose Arterial Blood Ionized Calcium Coronavirus (PCR) SARS-CoV-2 IgG Ab 08/14/20 08/14/20 08/14/20 11:32 17:50 23:39 WBC RBC Hgb Hct MCV MCH MCHC RDW Plt Count Lymph % (Auto) Lymph # (Auto) Seg Neutrophils % Lymphocytes % (Manual) Seg Neutrophils # Seg Neutrophils # Man Lymphocytes # (Manual) D-Dimer ABG pH POC ABG pCO2 POC ABG pO2 ABG Hemoglobin ABG Oxyhemoglobin ABG Sodium ABG Potassium ABG Chloride ABG Glucose Carboxyhemoglobin Sodium Potassium Chloride Carbon Dioxide BUN Creatinine Glucose POC Glucose 147 H 244 H 138 H Calcium Magnesium Ferritin Alkaline Phosphatase Lactate Dehydrogenase Total Creatine Kinase CK-MB (CK-2) C-Reactive Protein Total Protein Albumin Triglycerides Arterial Blood Glucose Arterial Blood Ionized Calcium Coronavirus (PCR) SARS-CoV-2 IgG Ab 08/15/20 08/15/20 08/15/20 04:03 05:12 11:26 WBC RBC Hgb Hct MCV MCH MCHC RDW Plt Count Lymph % (Auto) Lymph # (Auto) Seg Neutrophils % Lymphocytes % (Manual) Seg Neutrophils # Seg Neutrophils # Man Lymphocytes # (Manual) D-Dimer ABG pH POC ABG pCO2 67.3 H POC ABG pO2 68.7 L ABG Hemoglobin 11.5 L ABG Oxyhemoglobin 91.5 L ABG Sodium ABG Potassium ABG Chloride ABG Glucose 172 H Carboxyhemoglobin Sodium Potassium Chloride Carbon Dioxide BUN Creatinine Glucose POC Glucose 150 H 181 H Calcium Magnesium Ferritin Alkaline Phosphatase Lactate Dehydrogenase Total Creatine Kinase CK-MB (CK-2) C-Reactive Protein Total Protein Albumin Triglycerides Arterial Blood Glucose 172 H Arterial Blood Ionized Calcium Coronavirus (PCR) SARS-CoV-2 IgG Ab 08/15/20 08/15/20 08/15/20 17:08 23:34 Unknown WBC 11.9 H RBC 2.70 L Hgb 8.5 L Hct 26.6 L MCV 99 H MCH MCHC RDW Plt Count Lymph % (Auto) Lymph # (Auto) Seg Neutrophils % Lymphocytes % (Manual) Seg Neutrophils # Seg Neutrophils # Man Lymphocytes # (Manual) D-Dimer ABG pH POC ABG pCO2 POC ABG pO2 ABG Hemoglobin ABG Oxyhemoglobin ABG Sodium ABG Potassium ABG Chloride ABG Glucose Carboxyhemoglobin Sodium Potassium Chloride Carbon Dioxide BUN Creatinine Glucose POC Glucose 187 H 160 H Calcium Magnesium Ferritin Alkaline Phosphatase Lactate Dehydrogenase Total Creatine Kinase CK-MB (CK-2) C-Reactive Protein Total Protein Albumin Triglycerides Arterial Blood Glucose Arterial Blood Ionized Calcium Coronavirus (PCR) SARS-CoV-2 IgG Ab 08/15/20 08/16/20 08/16/20 Unknown 01:24 04:00 WBC 13.3 H RBC 2.75 L Hgb 8.4 L Hct 27.2 L MCV 99 H MCH MCHC 31 L RDW Plt Count Lymph % (Auto) Lymph # (Auto) Seg Neutrophils % Lymphocytes % (Manual) Seg Neutrophils # Seg Neutrophils # Man Lymphocytes # (Manual) D-Dimer ABG pH 7.298 L POC ABG pCO2 76.5 H POC ABG pO2 65.6 L ABG Hemoglobin 9.7 L ABG Oxyhemoglobin 89 L ABG Sodium ABG Potassium ABG Chloride ABG Glucose 201 H Carboxyhemoglobin Sodium Potassium Chloride Carbon Dioxide 41 H* BUN 33 H Creatinine 0.4 L Glucose 167 H POC Glucose Calcium 8.0 L Magnesium Ferritin Alkaline Phosphatase Lactate Dehydrogenase Total Creatine Kinase CK-MB (CK-2) C-Reactive Protein Total Protein Albumin Triglycerides Arterial Blood Glucose 201 H Arterial Blood Ionized Calcium Coronavirus (PCR) SARS-CoV-2 IgG Ab 08/16/20 08/16/20 08/16/20 05:02 12:14 17:53 WBC RBC Hgb Hct MCV MCH MCHC RDW Plt Count Lymph % (Auto) Lymph # (Auto) Seg Neutrophils % Lymphocytes % (Manual) Seg Neutrophils # Seg Neutrophils # Man Lymphocytes # (Manual) D-Dimer ABG pH POC ABG pCO2 POC ABG pO2 ABG Hemoglobin ABG Oxyhemoglobin ABG Sodium ABG Potassium ABG Chloride ABG Glucose Carboxyhemoglobin Sodium Potassium Chloride Carbon Dioxide BUN Creatinine Glucose POC Glucose 161 H 195 H 177 H Calcium Magnesium Ferritin Alkaline Phosphatase Lactate Dehydrogenase Total Creatine Kinase CK-MB (CK-2) C-Reactive Protein Total Protein Albumin Triglycerides Arterial Blood Glucose Arterial Blood Ionized Calcium Coronavirus (PCR) SARS-CoV-2 IgG Ab 08/16/20 08/16/20 08/17/20 23:19 Unknown 01:38 WBC RBC Hgb Hct MCV MCH MCHC RDW Plt Count Lymph % (Auto) Lymph # (Auto) Seg Neutrophils % Lymphocytes % (Manual) Seg Neutrophils # Seg Neutrophils # Man Lymphocytes # (Manual) D-Dimer ABG pH POC ABG pCO2 73.5 H POC ABG pO2 ABG Hemoglobin 8.9 L ABG Oxyhemoglobin ABG Sodium ABG Potassium 4.6 H ABG Chloride ABG Glucose 149 H Carboxyhemoglobin 1.7 H Sodium 146 H Potassium Chloride Carbon Dioxide 36 H BUN 29 H Creatinine 0.4 L Glucose 176 H POC Glucose 140 H Calcium 7.7 L Magnesium Ferritin Alkaline Phosphatase Lactate Dehydrogenase Total Creatine Kinase CK-MB (CK-2) C-Reactive Protein Total Protein Albumin Triglycerides Arterial Blood Glucose 149 H Arterial Blood Ionized Calcium Coronavirus (PCR) SARS-CoV-2 IgG Ab 08/17/20 08/17/20 08/17/20 05:19 07:57 07:57 WBC 11.5 H RBC 2.28 L Hgb 7.4 L Hct 22.7 L MCV 99 H MCH 33 H MCHC RDW Plt Count Lymph % (Auto) Lymph # (Auto) Seg Neutrophils % Lymphocytes % (Manual) Seg Neutrophils # Seg Neutrophils # Man Lymphocytes # (Manual) D-Dimer ABG pH POC ABG pCO2 POC ABG pO2 ABG Hemoglobin ABG Oxyhemoglobin ABG Sodium ABG Potassium ABG Chloride ABG Glucose Carboxyhemoglobin Sodium Potassium Chloride Carbon Dioxide 41 H* BUN 32 H Creatinine 0.5 L Glucose 228 H POC Glucose 199 H Calcium 7.9 L Magnesium Ferritin Alkaline Phosphatase Lactate Dehydrogenase Total Creatine Kinase CK-MB (CK-2) C-Reactive Protein Total Protein Albumin Triglycerides Arterial Blood Glucose Arterial Blood Ionized Calcium Coronavirus (PCR) SARS-CoV-2 IgG Ab 08/17/20 08/17/20 08/17/20 11:48 15:25 15:55 WBC 13.3 H RBC 2.39 L Hgb 7.5 L Hct 23.6 L MCV 99 H MCH MCHC RDW Plt Count Lymph % (Auto) Lymph # (Auto) Seg Neutrophils % Lymphocytes % (Manual) Seg Neutrophils # Seg Neutrophils # Man Lymphocytes # (Manual) D-Dimer ABG pH 6.988 L POC ABG pCO2 186.3 H POC ABG pO2 ABG Hemoglobin 8.9 L ABG Oxyhemoglobin 90.9 L ABG Sodium ABG Potassium 4.6 H ABG Chloride ABG Glucose 299 H Carboxyhemoglobin Sodium Potassium Chloride Carbon Dioxide BUN Creatinine Glucose POC Glucose 236 H Calcium Magnesium Ferritin Alkaline Phosphatase Lactate Dehydrogenase Total Creatine Kinase CK-MB (CK-2) C-Reactive Protein Total Protein Albumin Triglycerides Arterial Blood Glucose 299 H Arterial Blood Ionized Calcium Coronavirus (PCR) SARS-CoV-2 IgG Ab 08/17/20 08/17/20 08/17/20 15:55 17:34 17:53 WBC RBC Hgb Hct MCV MCH MCHC RDW Plt Count Lymph % (Auto) Lymph # (Auto) Seg Neutrophils % Lymphocytes % (Manual) Seg Neutrophils # Seg Neutrophils # Man Lymphocytes # (Manual) D-Dimer ABG pH POC ABG pCO2 75.4 H POC ABG pO2 201.3 H ABG Hemoglobin 8.8 L ABG Oxyhemoglobin ABG Sodium 145.5 H ABG Potassium ABG Chloride ABG Glucose 231 H Carboxyhemoglobin 1.7 H Sodium 150 H Potassium Chloride Carbon Dioxide 42 H* BUN 36 H Creatinine 0.6 L Glucose 268 H POC Glucose 181 H Calcium 7.8 L Magnesium Ferritin Alkaline Phosphatase Lactate Dehydrogenase Total Creatine Kinase CK-MB (CK-2) C-Reactive Protein Total Protein Albumin Triglycerides Arterial Blood Glucose 231 H Arterial Blood Ionized Calcium Coronavirus (PCR) SARS-CoV-2 IgG Ab 08/17/20 08/18/20 23:28 03:08 WBC RBC Hgb Hct MCV MCH MCHC RDW Plt Count Lymph % (Auto) Lymph # (Auto) Seg Neutrophils % Lymphocytes % (Manual) Seg Neutrophils # Seg Neutrophils # Man Lymphocytes # (Manual) D-Dimer ABG pH 7.546 H POC ABG pCO2 52.8 H POC ABG pO2 239.0 H ABG Hemoglobin 7.5 L ABG Oxyhemoglobin ABG Sodium 145.7 H ABG Potassium ABG Chloride ABG Glucose 128 H Carboxyhemoglobin Sodium Potassium Chloride Carbon Dioxide BUN Creatinine Glucose POC Glucose 136 H Calcium Magnesium Ferritin Alkaline Phosphatase Lactate Dehydrogenase Total Creatine Kinase CK-MB (CK-2) C-Reactive Protein Total Protein Albumin Triglycerides Arterial Blood Glucose 128 H Arterial Blood Ionized Calcium 4.5 L Coronavirus (PCR) SARS-CoV-2 IgG Ab
[2020-08-18 11:16] LABS: Hematocrit 23.4 % (35.5-45.6); Hemoglobin 7.8 gm/dl (11.8-15.2); Mean Corpuscular HGB Conc 33 % (32-34); Mean Corpuscular Volume 98 fl (84-94); Platelet Count 249 K/mm3 (140-440); Red Blood Count 2.39 M/mm3 (3.65-5.03); Red Cell Distribution Width 14.3 % (13.2-15.2)
[2020-08-18 11:46] LABS: Blood Urea Nitrogen 32 mg/dL (9-20); Calcium 8.5 mg/dL (8.4-10.2); Hemolysis Index 13
[2020-08-18 11:49] LABS: C-Reactive Protein 14.8 mg/dL (0.00-1.30)
[2020-08-18 11:55] LABS: BUN/Creatinine Ratio 64
[2020-08-18] MEDS: traZODone 50 MG TAB PO SCH (21:12)
--- NOTE | 2020-08-18 23:15 | Progress Note ---
Assessment and Plan Critical care statement The high probability OF a clinically significant sudden or life-threatening deterioration of the cardiorespiratory system and endocrine system required my full and direct attention, intervention and postoperative management. The aggregate critical care time was 32 minutes. The time is in addition to time spent performing reported procedures but includes the followin: Data review and interpretation 2: Patient assessment and monitoring of vital signs 3: Documentation 4:: Medication orders and management s/p CODE BLUE ACLS protocol and patient revived was informed about his condition --Acute hypoxc respiratory failure on Vent Current Visit: Yes Status: Acute Plan to address problem: Weaning in progress Prognosis is poor -- Hypernatremia increase water intake Sodium increased from 1 45-1 50 --COVID-19 positive Continue contact and droplet isolation, --Elevated D-dimers; CTA chest negative for PE, mild pulmonary edema, -- Pneumonia Current Visit: Yes Status: Acute Plan to address problem: Off antibiotics --Severe protein calorie Malnutrition 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 -- Full code status Current Visit: Yes Status: Acute Plan to address problem: Patient is a full code. Advance care planning Current Visit: Yes Status: Acute Plan to address problem: Disease education conducted, patient is full code, patient has poor prognosis. Prognosis discussed. +30 minutes. Subjective Date of service: 08/18/20 Principal diagnosis: Acute respiratory failure with hypoxia, Covid pneumonia Interval history: History Assessment and plan: 60 YO Male HD #23 with acute hypoxemic respiratory failure, bilateral pneumonia secondary to coronavirus infection, cough who is currently intubated and on ventilatory support. Patient has poor prognosis. Patient currently unable to be weaned from ventilatory support. Patient has poor prognosis. No acute decompensation overnight. Closely monitor the patient and adjust management as needed Follow CTA chest, and inflammatory markers Consults recommendations noted and appreciated Plan of care reviewed with the patient and his nurse 07/20; patient is severely hypoxemic, on high flow oxygen 40 L/100%/O2 sats 95 Elevated D-dimers, patient is severely hypoxemic, will check CTA chest to rule out PE Also consider lower extremity venous Doppler to rule out DVT 07/21: Patient remains on high flow oxygen however mild improvement from 40 L to 35 l Tolerating prone position, continue steroids remdesivir CTA chest negative for PE, lower extremity venous Doppler negative for DVT Consults recommendations noted and appreciated Poor prognosis, patient is aware 07/22/2020; patient feels slightly better remains on high flow oxygen however lower than yesterday 35 L/95% /O2 sat 94% 07/21/2020 advised the patient to rest in prone position as tolerated Home oxygen evaluation 07/23/2020; remains on high flow oxygen, continue steroids remdesivir, prone position and comfort care Patient is critically ill with very poor prognosis and prolonged hypoxemia on high flow oxygen Plan of care reviewed with the patient and his nurse 07/24/2020; patient was severely hypoxemic rapid response called oxygen settings adjusted patient is currently better, requiring high flow oxygen right from the day he was admitted, poor prognosis, discussed with patient's 07/25/2020; patient remains on high flow oxygen in mild distress, overall prognosis poor I discussed with , and family friend physician extensively yesterday Poor prognosis continue current management 07/26/2020; patient remains on high flow oxygen 40 L/100%/95% O2 sat +100% nonrebreather Patient is critically ill, poor prognosis, ID pulmonary following 07/27/2020; patient remains on high flow oxygen 40 L/100%/[address] 100% nonrebreather Very poor prognosis, patient and family aware Pulmonary recommendations noted and appreciated 07/28/2020; patient remains critically ill, remains dependent on high flow oxygen 40 L +100% nonrebreather Very poor prognosis. 07/29/2020 Remains critically ill On high flow oxygen 07/30/2020 On high flow oxygen Is critically ill 07/31/2020 On high flow oxygen Critically ill 08/01/2020 on high flow oxygen Critically ill 08/02/2020 On Vent Weaning in progress 08/03/20 On Vent Weaning in progress 08/04/20 On vent Weaning in progress 08/05/20 Did not increase PEEP yesterday. PaO2 improved on own. Will wean FiO2 down today for sats >88%. Hold on proning for now. Continue steroids. Needs better rate control. Most likely sinus tach from hypoxemia, 08/08: Patient remains on full ventilatory support, critically ill, Proninng per Medical Doctor Nuclear Medicine. Down to 60% oxygen FIO2. PEEP Lasix 20mg IV x 1 today, Consider changing to full dose anticoagulation. Discussed with Medical Doctor Nuclear Medicine. Check Osmolality. Monitor Plt considering Lovenox Spoke with extensively and sister. 08/10; Continue supportive care, No significant clinical change, monitor for fever, continue pronining if tolerated. Being changed to Versed due to worsening triglycerides propofol has been stopped. Will discuss with critical care physician if some additional Lasix trial will be done as well monitoring patient's renal function. I have called and left a message for the family. 08/11: Continues with persistent hypoxia and hypercapnia. Intermittent fever. No elevated leukocytosis. Will reconsult ID to assist with management of this. Continue on full dose anticoagulation while monitoring H&H. We will hold off any further Lasix due to noted elevated bicarb. We will continue to monitor 08/12: Discussed with nursing staff. Also reviewed feltmaker per documentation. Patient remains critically ill with no change for the better or for worse. Discussed with nursing staff patient still moves around but nonpurposeful movements not following commands. Will reevaluate during sedation vacation. We will continue to monitor hypernatremia and adjust fluids to help with improvement. I have called and update family, answered all questions. We will continue pronging 08/13: Updated family, Unfortunately no improvement, Will discuss with Medical Doctor Nuclear Medicine if Diamox should be tried. Continue monitoring and on Restraints. 08/14: Continue supportive care. Will update family tomorrow. Continue to wean oxygen as tolerated. Pulmonary input noted patient on D5W for the next 24 hours while free water has been increased no diuresis or Diamox at this time per their recommendation. Prognosis remains guarded. 08/15: Continue supportive care. Await a.m. labs. Blood sugar sodium improved on D5 water. Still no clinical change. Discussed with clinical team Decadron has been discontinued. No clinical improvement 08/16: Discussing Trach and PEG with the family. Continue supportive care, Discussed with Pulmonary, will trial Lasix today, Prone as tolerated. Spoke with spouse GWEN [phone], she will come in to see him. she wants to know if he is in a coma. I have provided detailed explanation of his critical nature. Will defer to my colleagues to keep updating her. Prognosis is guarded to poor 08/17/2020 Patient coded around 15 hours ACLS protocol was initiated and patient revived I called his spouse at [phone] and informed of the code and his condition in the posterolateral state. Patient is unstable Informed that the patient is unstable Objective - Constitutional Vitals: Vital Signs - 12hr 08/18/20 08/18/20 08/18/20 11:15 11:30 11:34 Temperature Pulse Rate 102 H 101 H 93 H Pulse Rate [ From Monitor] Respiratory 33 H 20 Rate Blood Pressure 156/81 158/84 111/65 O2 Sat by Pulse 90 92 93 Oximetry 08/18/20 08/18/20 08/18/20 11:45 12:00 12:01 Temperature 98.8 F Pulse Rate 103 H 104 H 103 H Pulse Rate [ 104 H From Monitor] Respiratory 31 H 30 H 25 H Rate Blood Pressure 161/81 146/78 O2 Sat by Pulse 92 92 92 Oximetry 08/18/20 08/18/20 08/18/20 12:15 12:31 12:45 Temperature Pulse Rate 100 H 104 H 104 H Pulse Rate [ From Monitor] Respiratory 24 34 H 32 H Rate Blood Pressure 146/78 136/85 139/74 O2 Sat by Pulse 93 84 85 Oximetry 08/18/20 08/18/20 08/18/20 13:01 13:15 13:31 Temperature Pulse Rate 107 H 104 H 105 H Pulse Rate [ From Monitor] Respiratory 25 H 19 25 H Rate Blood Pressure 149/75 149/75 138/61 O2 Sat by Pulse 89 89 89 Oximetry 08/18/20 08/18/20 08/18/20 13:45 14:01 14:15 Temperature Pulse Rate 102 H 114 H 120 H Pulse Rate [ From Monitor] Respiratory 21 26 H 18 Rate Blood Pressure 138/61 121/62 121/62 O2 Sat by Pulse 90 91 92 Oximetry 08/18/20 08/18/20 08/18/20 14:30 14:45 15:00 Temperature Pulse Rate 101 H 101 H 100 H Pulse Rate [ From Monitor] Respiratory 19 24 24 Rate Blood Pressure 113/57 114/64 114/64 O2 Sat by Pulse 91 91 93 Oximetry 08/18/20 08/18/20 08/18/20 15:15 15:30 15:45 Temperature Pulse Rate 100 H 98 H 83 Pulse Rate [ From Monitor] Respiratory 30 H 23 30 H Rate Blood Pressure 130/64 108/57 108/57 O2 Sat by Pulse 91 92 84 Oximetry 08/18/20 08/18/20 08/18/20 15:57 16:00 16:01 Temperature 98 F Pulse Rate 100 H 101 H 102 H Pulse Rate [ 101 H From Monitor] Respiratory 30 H 26 H Rate Blood Pressure 114/64 121/65 O2 Sat by Pulse 93 90 94 Oximetry 08/18/20 08/18/20 08/18/20 16:15 16:30 16:45 Temperature Pulse Rate 97 H 97 H 100 H Pulse Rate [ From Monitor] Respiratory 32 H 31 H 19 Rate Blood Pressure 115/60 112/58 113/59 O2 Sat by Pulse 91 91 91 Oximetry 08/18/20 08/18/20 08/18/20 17:00 17:15 17:30 Temperature Pulse Rate 104 H 100 H 97 H Pulse Rate [ From Monitor] Respiratory 28 H 26 H 24 Rate Blood Pressure 115/57 105/61 97/55 O2 Sat by Pulse 92 91 92 Oximetry 08/18/20 08/18/20 08/18/20 17:45 18:00 18:15 Temperature Pulse Rate 94 H 96 H 91 H Pulse Rate [ From Monitor] Respiratory 23 31 H 31 H Rate Blood Pressure 97/55 115/63 122/62 O2 Sat by Pulse 83 L 93 87 Oximetry 08/18/20 08/18/20 08/18/20 18:30 18:45 19:00 Temperature Pulse Rate 90 94 H 97 H Pulse Rate [ From Monitor] Respiratory 30 H 29 H 30 H Rate Blood Pressure 114/60 111/59 107/58 O2 Sat by Pulse 90 91 89 Oximetry 08/18/20 08/18/20 08/18/20 19:15 19:30 19:45 Temperature Pulse Rate 98 H 97 H 96 H Pulse Rate [ From Monitor] Respiratory 30 H 30 H 30 H Rate Blood Pressure 104/54 106/59 106/57 O2 Sat by Pulse 93 93 93 Oximetry 08/18/20 08/18/20 08/18/20 19:47 20:00 20:15 Temperature 99.1 F Pulse Rate 97 H 96 H 71 Pulse Rate [ 95 H From Monitor] Respiratory 20 28 H Rate Blood Pressure 106/57 108/54 108/54 O2 Sat by Pulse 95 91 92 Oximetry 08/18/20 08/18/20 08/18/20 20:31 20:45 21:00 Temperature Pulse Rate 90 120 H 146 H Pulse Rate [ From Monitor] Respiratory 23 18 20 Rate Blood Pressure 202/88 121/55 106/55 O2 Sat by Pulse 81 L 100 100 Oximetry 08/18/20 08/18/20 21:15 21:30 Temperature Pulse Rate 119 H 101 H Pulse Rate [ From Monitor] Respiratory 23 30 H Rate Blood Pressure 107/54 97/55 O2 Sat by Pulse 100 100 Oximetry General appearance: Present: no acute distress, well-nourished - EENT Eyes: PERRL, EOM intact ENT: hearing intact, clear oral mucosa Ears: bilateral: normal - Neck Neck: supple, normal ROM - Respiratory Respiratory effort: normal Respiratory: bilateral: CTA - Breasts Breasts: normal - Cardiovascular Rhythm: regular Heart Sounds: Present: S1 & S2. Absent: gallop, rub Extremities: pulses intact, No edema, normal color, Full ROM - Gastrointestinal General gastrointestinal: Present: soft, non-tender, non-distended, normal bowel sounds - Genitourinary Male genitourinary: normal - Integumentary Integumentary: clear, warm, dry - Musculoskeletal Musculoskeletal: 1, strength equal bilaterally - Neurologic Neurologic: moves all extremities - Psychiatric Psychiatric: memory intact, appropriate mood/affect, intact judgment & insight - Labs CBC & Chem 7: 08/18/20 11:05 08/18/20 10:30 Labs: Abnormal lab results 08/17/20 08/18/20 08/18/20 Range/Units 23:28 03:08 05:05 WBC (4.5-11.0) K/mm3 RBC (3.65-5.03) M/mm3 Hgb (11.8-15.2) gm/dl Hct (35.5-45.6) % MCV (84-94) fl MCH (28-32) pg D-Dimer (0-234) ng/mlDDU ABG pH 7.546 H (7.320-7.450) POC ABG pCO2 52.8 H (32.0-48.0) mmHg POC ABG pO2 239.0 H (83-108) mmHg ABG Hemoglobin 7.5 L (12.0-17.5) ABG Sodium 145.7 H (136.0-145.0) mmol/L ABG Glucose 128 H (65-95) mg/dL Sodium (137-145) mmol/L Carbon Dioxide (22-30) mmol/L BUN (9-20) mg/dL Creatinine (0.8-1.3) mg/dL Glucose (75-100) mg/dL POC Glucose 136 H 108 H (70-105) mg/dL Ferritin (30.0-300.0) ng/mL Lactate Dehydrogenase (91-180) units/L C-Reactive Protein (0.00-1.30) mg/dL Arterial Blood Glucose 128 H (65-95) mg/dL Arterial Blood Ionized Calcium 4.5 L (4.6-5.3) mg/dL 08/18/20 08/18/20 08/18/20 Range/Units 10:20 10:20 10:30 WBC (4.5-11.0) K/mm3 RBC (3.65-5.03) M/mm3 Hgb (11.8-15.2) gm/dl Hct (35.5-45.6) % MCV (84-94) fl MCH (28-32) pg D-Dimer 1999.21 H (0-234) ng/mlDDU ABG pH (7.320-7.450) POC ABG pCO2 (32.0-48.0) mmHg POC ABG pO2 (83-108) mmHg ABG Hemoglobin (12.0-17.5) ABG Sodium (136.0-145.0) mmol/L ABG Glucose (65-95) mg/dL Sodium (137-145) mmol/L Carbon Dioxide (22-30) mmol/L BUN (9-20) mg/dL Creatinine (0.8-1.3) mg/dL Glucose (75-100) mg/dL POC Glucose (70-105) mg/dL Ferritin 692.4 H (30.0-300.0) ng/mL Lactate Dehydrogenase 407 H (91-180) units/L C-Reactive Protein 14.80 H (0.00-1.30) mg/dL Arterial Blood Glucose (65-95) mg/dL Arterial Blood Ionized Calcium (4.6-5.3) mg/dL 08/18/20 08/18/20 08/18/20 Range/Units 10:30 11:05 11:46 WBC 12.3 H (4.5-11.0) K/mm3 RBC 2.39 L (3.65-5.03) M/mm3 Hgb 7.8 L (11.8-15.2) gm/dl Hct 23.4 L (35.5-45.6) % MCV 98 H (84-94) fl MCH 33 H (28-32) pg D-Dimer (0-234) ng/mlDDU ABG pH (7.320-7.450) POC ABG pCO2 (32.0-48.0) mmHg POC ABG pO2 (83-108) mmHg ABG Hemoglobin (12.0-17.5) ABG Sodium (136.0-145.0) mmol/L ABG Glucose (65-95) mg/dL Sodium 146 H (137-145) mmol/L Carbon Dioxide 42 H* (22-30) mmol/L BUN 32 H (9-20) mg/dL Creatinine 0.5 L (0.8-1.3) mg/dL Glucose 136 H (75-100) mg/dL POC Glucose 122 H (70-105) mg/dL Ferritin (30.0-300.0) ng/mL Lactate Dehydrogenase (91-180) units/L C-Reactive Protein (0.00-1.30) mg/dL Arterial Blood Glucose (65-95) mg/dL Arterial Blood Ionized Calcium (4.6-5.3) mg/dL 08/18/20 Range/Units 17:10 WBC (4.5-11.0) K/mm3 RBC (3.65-5.03) M/mm3 Hgb (11.8-15.2) gm/dl Hct (35.5-45.6) % MCV (84-94) fl MCH (28-32) pg D-Dimer (0-234) ng/mlDDU ABG pH (7.320-7.450) POC ABG pCO2 (32.0-48.0) mmHg POC ABG pO2 (83-108) mmHg ABG Hemoglobin (12.0-17.5) ABG Sodium (136.0-145.0) mmol/L ABG Glucose (65-95) mg/dL Sodium (137-145) mmol/L Carbon Dioxide (22-30) mmol/L BUN (9-20) mg/dL Creatinine (0.8-1.3) mg/dL Glucose (75-100) mg/dL POC Glucose 159 H (70-105) mg/dL Ferritin (30.0-300.0) ng/mL Lactate Dehydrogenase (91-180) units/L C-Reactive Protein (0.00-1.30) mg/dL Arterial Blood Glucose (65-95) mg/dL Arterial Blood Ionized Calcium (4.6-5.3) mg/dL HEART Score - HEART Score Troponin: Troponin T 0.018 ng/mL (0.00-0.029) 07/30/20 10:33
[2020-08-18] MEDS ORDERED: INSULIN LISPRO 100 UNIT/ML SUB-Q ONE (23:29)
[2020-08-19] MEDS: INSULIN LISPRO 100 UNIT/ML VIAL 3 mL SUB-Q SCH ×2 (00:42→05:51)
[2020-08-19] MEDS: fentaNYL DRIP Premix 2,000 MCG/100 ML BAG IV SCH ×2 (04:01→09:09)
[2020-08-19] MEDS: FAMOTIDINE 20 MG TAB PO SCH (09:10)
[2020-08-19] MEDS: ENOXAPARIN 100 MG/1 ML INJ SUB-Q SCH (09:11)
[2020-08-19] MEDS: CHOLECALCIFEROL (VIT D3) 5,000 UNIT TAB PO SCH (09:11)
[2020-08-19] MEDS: ASCORBIC ACID 500 MG TAB PO SCH (09:11)
[2020-08-19] MEDS: SENNOSIDES/DOCUSATE SODIUM 8.6/50 MG TAB PO SCH (09:11)
[2020-08-19] MEDS: ZINC SULFATE 220 MG CAP PO SCH (09:12)
[2020-08-19] MEDS ORDERED: EPINEPHrine 1 MG/10 ML SYRINGE ONE (10:00)
[2020-08-19] MEDS ORDERED: SODIUM BICARB 8.4% 50 MEQ/50 ML SYRINGE IV ONE (10:00)
--- NOTE | 2020-08-19 10:25 | Event Note ---
Date: 08/19/20 Patient desatting in the 70's. Made several changes to the vent to help with oxygenation and no improvement. Took patient off and began to bag. highest sat achieved was about 88%. However when tried to place back on vent would quickly desat into the 70's. Patient then became bradycardic and lost pulse. CPR started. Patient received about 7 rounds of epi, two bicarbs. Fluids were opened up. Unfortunately patient developed asystole and code was called at 10:16. [facility] had called the at the beginning of the code and called again po st code to inform her. This the second cardiac arrest in 3 days time. CCT 91 minutes.
[2020-08-19 12:28] VITALS: BP 108/72
== END 2020-08-19 10:30 | DRG 207 ==
LOC: ED 15:46 → 3A 22:00 → CC1 07-29 23:07
PROVIDERS: ADMIT Internal Medicine Geriatric Medicine; ATTEND Internal Medicine
PROC: XW033E5 Introduction of Remdesivir Anti-infective into Peripheral Vein, Percutaneous Approach, New Technology Group 5 (ICD-10-PCS; 2020-07-19)
PROC: 5A09457 Assistance with Respiratory Ventilation, 24-96 Consecutive Hours, Continuous Positive Airway Pressure (ICD-10-PCS; 2020-07-29)
PROC: 5A1955Z Respiratory Ventilation, Greater than 96 Consecutive Hours (ICD-10-PCS; principal; 2020-07-31)
PROC: 0BH17EZ Insertion of Endotracheal Airway into Trachea, Via Natural or Artificial Opening (ICD-10-PCS; 2020-07-31)
PROC: 02HV33Z Insertion of Infusion Device into Superior Vena Cava, Percutaneous Approach (ICD-10-PCS; 2020-07-31)
PROC: 4A033R1 Measurement of Arterial Saturation, Peripheral, Percutaneous Approach (ICD-10-PCS; 2020-08-12)
PROC: 5A12012 Performance of Cardiac Output, Single, Manual (ICD-10-PCS; 2020-08-19)
DX: U07.1 COVID-19 (principal); J96.01 Acute respiratory failure with hypoxia; J12.82 Pneumonia due to coronavirus disease 2019; E43 Unspecified severe protein-calorie malnutrition; G93.41 Metabolic encephalopathy; E87.0 Hyperosmolality and hypernatremia; R65.10 Systemic inflammatory response syndrome (SIRS) of non-infectious origin without acute organ dysfunction; D69.6 Thrombocytopenia, unspecified; Z68.29 Body mass index [BMI] 29.0-29.9, adult
CPT/HCPCS: 36415; 36600; 71045; 71275; 74018; 80048; 80053; 80076; 81001; 82140; 82550; 82553; 82728; 82805; 82947; 82962; 83520; 83615; 83735; 83880; 83930; 84100; 84145; 84478; 84484; 85007; 85025; 85027; 85379; 85610; 85652; 86140; 87040; 87070; 87086; 87205; 87641; 90471; 93005; 93970; 94002; 94003; 94640; 94644; 94660; 94760; 96374; 96375; 96376; G0378; J0171; J0330; J0456; J0692; J0696; J1100; J1630; J1650; J1815; J1940; J2060; J2250; J2270; J2405; J2704; J3010; J7042; J7050; J7070; J8540; Q9967; U0003